=== PATIENT | male | born 1950 | race Caucasian/White ===

== ENCOUNTER 2017-02-05 06:11 | Inpatient (IN) | payer OTHER ==
[2017-01-22 11:56] VITALS: BMI 35.0
--- NOTE | 2017-01-22 12:24 | PAT Medication Instructions ---
Service Date January 22, 2017. Current Home Medication List Allopurinol (Zyloprim), 100 MG PO QAM Aspirin (Aspirin Ec), 81 MG PO QAM Cyanocobalamin (Vitamin B-12), 1,000 MCG PO QAM Insulin Glargine (Lantus), 50 UNITS SQ HS Insulin Glargine (Lantus), 60 SC QAM Lisinopril (Zestril), 10 MG PO QAM Meloxicam (Mobic), 15 MG PO QAM Metformin Hcl (Glucophage), 1,000 MG PO BID Simvastatin (Zocor), 0.5 TAB PO QPM [saxagliptin-hcl], 2.5 MG PO QAM Medication Instructions For Your Scheduled Surgery - Check with surgeon for instructions: Meloxicam (Mobic), 15 MG PO QAM - Hold the following medications 48 hours prior to surgery: Metformin Hcl (Glucophage), 1,000 MG PO BID - Hold the following medications the morning of surgery: [saxagliptin-hcl], 2.5 MG PO QAM Lisinopril (Zestril), 10 MG PO QAM Cyanocobalamin (Vitamin B-12), 1,000 MCG PO QAM - Take the following medications the morning of surgery with a sip of water: Allopurinol (Zyloprim), 100 MG PO QAM Aspirin (Aspirin Ec), 81 MG PO QAM - Take the following medications as scheduled the night before surgery: Simvastatin (Zocor), 0.5 TAB PO QPM Insulin Glargine (Lantus), 50 UNITS SQ HS - For Insulin Dependent Diabetic patients: Test blood sugar A.M. of surgery. - If blood sugar greater than 150, take half of your regular dose of: Insulin Glargine (Lantus), take 30 units - If blood sugar less than 150, do not take any: Insulin Glargine (Lantus ) If you have any questions please call us at [phone] or [phone] or [phone]
[2017-01-22 12:51] LABS: BASO % 0.8 %; BASO ABS # 0.06 K/uL (0-0.2); COMPLETE YES; EOS % 1.9 %; HEMATOCRIT 41.6 % (42-52); IG% 0.3 %; LYMPH % 19.5 %; MEAN CELL VOLUME 85.1 fL (80-100); MEAN CORPUSCULAR HEMOGLOBIN 27.2 pg (25-34); MEAN PLATELET VOLUME 9.8 fL (7.4-10.4); MONO % 4.9 %; NEUT % 72.6 %; PLATELET COUNT 211 K/uL (130-400); RED BLOOD COUNT 4.89 M/uL (4.7-6.1); WHITE BLOOD COUNT 7.19 K/uL (4.8-10.8)
--- NOTE | 2017-01-22 12:52 | DIAGNOSTIC IMAGING REPORT ---
CHEST PREADMISSION(PA/LAT) CLINICAL HISTORY: PAT preoperative evaluation COMPARISON STUDY: 07/01/2014 FINDINGS: Chronic pleural scarring left base laterally. Lungs otherwise appear clear. No focal infiltrates. No evidence for cardiac enlargement. IMPRESSION: Chronic change. No acute process. Electronically signed by: Elder Pablo M.D. 01/22/2017 12:51 PM Dictated Date/Time: 01/22/2017 12:50 PM
[2017-01-22 12:57] LABS: MANUAL MICROSCOPIC REQUIRED? NO; REVIEW REQ? NO; URINE APPEARANCE CLEAR (CLEAR); URINE BILIRUBIN NEG (NEG); URINE COLOR YELLOW; URINE NITRITE NEG (NEG); URINE SPECIFIC GRAVITY 1.022 (1.000-1.030); UROBILINOGEN NEG (NEG); ZZUR CULT IF INDIC CLEAN CATCH NO
[2017-01-22 13:07] LABS: PROTHROMBIN TIME (PATIENT) 10.9 SECONDS (9.0-12.0)
[2017-01-22 13:13] LABS: ESTIMATED AVERAGE GLUCOSE 166 mg/dl; HA1C FLAG Normal (Normal)
[2017-01-22 13:35] LABS: CALCIUM 9.2 mg/dl (8.5-10.1); CREATININE 1.6 mg/dl (0.60-1.40); POTASSIUM 4.7 mmol/L (3.5-5.1)
--- NOTE | 2017-02-04 10:47 | HISTORY & PHYSICAL EXAMINATION ---
DATE OF ADMISSION: 02/05/2017 CHIEF COMPLAINT: Right knee pain. HISTORY OF PRESENT ILLNESS: Mr. Boykin is a 67-year-old male with a multiple year history of right knee pain. The patient rates his pain a 6/10. He has pain with his daily activities. He has limited standing and walking tolerance. Pain is worse with weightbearing. The patient has had injections, anti-inflammatories, and bracing over the years without relief. He has failed conservative treatment and is now scheduled for right knee replacement. PAST MEDICAL HISTORY: Diabetes with an A1c of 6, history of left lower extremity deep venous thrombosis after being in a cast and sleep apnea, and hypercholesterolemia. He denies heart disease. PAST SURGICAL HISTORY: Cholecystectomy, ORIF left ankle, bilateral rotator cuff repair, and lithotripsy. SOCIAL HISTORY: The patient denies alcohol or tobacco use. He lives in a 2-story home. He is and retired. FAMILY HISTORY: Negative for DVT. MEDICATIONS: Metformin 1000 mg b.i.d., Meloxicam 15 mg daily, saxagliptin HCL 2.5 mg daily, allopurinol 100 mg daily, lisinopril 10 mg daily, simvastatin 80 mg daily, vitamin B12 1000 mg daily, aspirin 81 mg daily, Lantus 60 units in the morning and 50 units at bedtime. ALLERGIES: None. REVIEW OF SYSTEMS: See HPI. Ten other systems reviewed, all negative. PHYSICAL EXAMINATION: VITAL SIGNS: Height 5 feet 10 inches, weight 242 pounds, BMI unknown. GENERAL: This is a well-developed, well-nourished male who is alert and oriented x3. Mood and affect are appropriate. HEENT: Normocephalic, atraumatic. Mucous membranes are moist and intact. NECK: Supple without lymphadenopathy. HEART: Regular rate and rhythm without murmurs, rubs or gallops. LUNGS: Clear to auscultation without wheezes or rhonchi. ABDOMEN: Soft and nontender. Bowel sounds are equal and active. EXTREMITIES: No ecchymosis, redness or warmth. The patient has a varus deformity. Range of motion is from 5-100 degrees with +1 laxity. He is neurovascularly intact with +5/5 strength. X-RAY EXAMINATION: AP and lateral views show joint space narrowing and osteophyte formation. IMPRESSION: Degenerative joint disease, right knee. PLAN: The patient will be admitted for a right total knee arthroplasty. We will plan on aspirin for DVT prophylaxis. PCP is Dr. Best. He is going to have [facility] for home physical therapy.
[2017-02-05] VITALS (9 sets, daily range): BP systolic 108–145; BP diastolic 63–83; PULSE 60–75; TEMP 36.4–36.9; O2SAT 94–99; Ht 177.8 cm; Wt 111.9 kg
[~2017-02-05] VITALS: Ht 177.8 cm; Wt 111.9 kg
[~2017-02-05 06:11] MED LIST: ACETAMINOPHEN 500 MG TAB PO SCH; ALLO100T PO; ASPI81TA28 PO; CEFAZOLIN 2000 MG/60 ML D5W 60 ML IV SCH; CYAN10005 PO; CeleBREX 200 MG CAP PO SCH; FAMOTIDINE 20 MG TAB PO SCH; GABAPENTIN 300 MG CAP PO SCH; INSDGI SC; INSDGI SQ; LACTATED RINGER'S 1000ML 1,000 ML IV SCH; LACTATED RINGER'S 1000ML 500 ML IV ONE; LISI-791 PO; MELO15TA4 PO; METF1000 PO; METOCLOPRAMIDE HCL 10 MG TAB PO SCH; OXYCODONE HCL 10 MG TABCR (OXYCONTIN) PO SCH; POLYMYXIN B SULFATE 100,000 UNITS in NSS 100ML IR SCH; ROPIVACAINE 5MG/ML 30 ML 150 MG, BUPIVACAINE/EPINEPHR 0.5% MPF 30 ML, KETOROLAC TROMETH... INFIL SCH; SIMV80TA5 PO; VANCOMYCIN INJ 400 MG in NSS 100ML IR SCH; [UNRECOGNIZED DRUG - CODE] PO
[2017-02-05] MEDS ORDERED: FENTANYL CITRATE INJ 50 MCG/1 ML 2 ML VIAL ONE (06:22)
[2017-02-05] MEDS ORDERED: MIDAZOLAM HCL 1 MG/ML 2ML VIAL ONE ×2 (06:23→08:50)
--- NOTE | 2017-02-05 06:54 | History & Physical Bridge Note ---
H&P Re-Evaluation Bridge Note: I have examined the patient, reviewed the History & Physical and in the interval since the performance of the History & Physical I have noted the following changes of clinical significance: No changes noted
[2017-02-05] MEDS ORDERED: ORTHO JOINT ANESTHETIC ONE (07:38)
[2017-02-05] MEDS ORDERED: BUPIVACAINE/EPINEPHRINE 0.25% 1:200,000 30 ML VIAL ONE (07:38)
[2017-02-05] MEDS ORDERED: POVIDONE-IODINE OP SOLN 30 ML BTL ONE (07:39)
[2017-02-05] MEDS ORDERED: BACITRACIN 50000 UNIT VIAL ONE (07:39)
[2017-02-05] MEDS: TRANEXAMIC ACID INJ 1,000 MG in SODIUM CHLORIDE 0.9% 100ML 100 ML IV SCH ×2 (08:00→12:54)
[2017-02-05] MEDS ORDERED: BUPIVACAINE 0.5 % 5 MG/1 ML PF 10ML VIAL ONE (08:21)
[2017-02-05] MEDS ORDERED: BUPIVACAINE 0.25% 30 ML VIAL ONE (08:21)
[2017-02-05] MEDS ORDERED: EpHEDrine SULFATE INJ 50 MG/ML AMP IV PRN (08:45)
[2017-02-05] MEDS ORDERED: KETOROLAC TROMETHAMINE 30 MG/ML VIAL IV. PRN (08:45)
[2017-02-05] MEDS ORDERED: HYDROmorphone INJ 2 MG/ML SYR/VIAL IV PRN (08:45)
[2017-02-05] MEDS ORDERED: ONDANSETRON INJ 2 MG/ML 2 ML VIAL IV PRN ×2 (08:45→10:00)
[2017-02-05] MEDS ORDERED: ATROPINE SULFATE 0.1 MG/ML 5ML SYR IV PRN (08:45)
[2017-02-05] MEDS ORDERED: PHENYLEPHRINE 100MCG/ML 5ML SYR IV PRN (08:45)
[2017-02-05] MEDS ORDERED: PROPOFOL IV EMULSION 10 MG/ML 20 ML VIAL IV ONE (08:50)
[2017-02-05] MEDS ORDERED: LIDOCAINE HCL 2% 2 ML VIAL (20MG/ML) ONE (08:50)
[2017-02-05] MEDS ORDERED: PHENYLEPHRINE 100MCG/ML 5ML SYR ONE (08:52)
[2017-02-05] MEDS ORDERED: EpHEDrine SULFATE 50MG/5ML SYR ONE (08:57)
--- NOTE | 2017-02-05 09:51 | [facility] Post Operative Brief Note ---
Immediate Operative Summary Operative Date February 05, 2017. Pre-Operative Diagnosis Right Knee Degenerative Joint Disease Post-Operative Diagnosis Same as preop Procedure(s) Performed Right Total Knee Arthroplasty Surgeon Dr. David Galo [place] Flo[place] Surgeon(s) Gage Feng PA-C Estimated Blood Loss 125 Findings djd Specimens A. Right Knee Bone and Tissue Complication(s) None Disposition Recovery Room / PACU
[2017-02-05] MEDS ORDERED: SOD PHOSPHATE/SOD BIPHOSPHATE ENEMA 132 ML BTL PR PRN (10:00)
[2017-02-05] MEDS ORDERED: ZOLPIDEM TARTRATE 5 MG TAB PO PRN (10:00)
[2017-02-05] MEDS ORDERED: METOCLOPRAMIDE HCL INJ 5 MG/ML 2 ML VIAL IV PRN (10:00)
[2017-02-05] MEDS ORDERED: KETOROLAC TROMETHAMINE 15 MG/ML VIAL IV. PRN (10:00)
[2017-02-05] MEDS ORDERED: ALUMINUM/MAGNESIUM/SIMETH (MAALOX MAX) 30 ML UDC PO PRN (10:00)
[2017-02-05] MEDS ORDERED: BISACODYL 10 MG SUPP PR PRN (10:00)
[2017-02-05] MEDS ORDERED: MAGNESIUM HYDROXIDE SUSP 30 ML UDC PO PRN (10:00)
[2017-02-05] MEDS ORDERED: TRAMADOL HCL 50 MG TAB PO PRN (10:00)
[2017-02-05] MEDS ORDERED: MoRPHine SULFATE 2 MG/ML CARP IV PRN (10:00)
[2017-02-05] MEDS ORDERED: DiphenhydrAMINE HCL 50 MG/ML VIAL IV PRN (10:00)
[2017-02-05] MEDS ORDERED: OXYCODONE HCL IR 5 MG TAB (IMMEDIATE RELEASE) PO PRN (10:00)
--- NOTE | 2017-02-05 11:04 | DIAGNOSTIC IMAGING REPORT ---
RIGHT KNEE 1 OR 2 VIEWS ROUTINE CLINICAL HISTORY: AP/LATERAL IN PACU RIGHT KNEE Right joint replacement COMPARISON: None. DISCUSSION: Total joint replacement. Good contact between prosthetic and Bone. Surgical drains are in position. Expected postoperative soft tissue change IMPRESSION: Anatomic alignment status post total right knee replacement Electronically signed by: Elder Pablo M.D. 02/05/2017 11:03 AM Dictated Date/Time: 02/05/2017 11:00 AM
--- NOTE | 2017-02-05 11:19 | Anesthesiology Progress Note ---
Anesthesia Post Op Note Date & Time February 05, 2017 at 11:19 Vital Signs Pain Intensity: 0 Vital Signs Past 12 Hours Date Time Temp Pulse Resp B/P Pulse Ox O2 Delivery O2 Flow Rate FiO2 02/05/17 11:05 36.3 66 24 109/70 98 Nasal Cannula 2 02/05/17 10:55 66 20 109/62 97 Nasal Cannula 2 02/05/17 10:45 65 20 100/62 98 Nasal Cannula 2 02/05/17 10:35 69 26 98/63 99 Nasal Cannula 2 02/05/17 10:27 36.2 72 16 109/64 99 Nasal Cannula 2 02/05/17 06:58 36.9 75 20 145/83 95 Room Air Notes Mental Status: alert / awake / arousable, participated in evaluation Pt Amnestic to Procedure: Yes Nausea / Vomiting: adequately controlled Pain: adequately controlled Airway Patency, RR, SpO2: stable & adequate BP & HR: stable & adequate Hydration State: stable & adequate Anesthetic Complications: no major complications apparent
[2017-02-05] MEDS ORDERED: PHARMACY GLYCEMIC MGMT CONSULT PRN (12:10)
[2017-02-05] MEDS: SODIUM CHLORIDE 0.9% 1000ML 1,000 ML IV SCH ×2 (12:57→21:20)
[2017-02-05] MEDS: INSULIN ASPART 100 UNITS/ML 3 ML PEN SC SCH ×3 (13:01→21:22)
[2017-02-05] MEDS ORDERED: GLUCOSE 10 TABS/TUBE PO PRN (15:15)
[2017-02-05] MEDS ORDERED: GLUCOSE 40% GEL 15 GM TUBE PO PRN (15:15)
[2017-02-05] MEDS ORDERED: GLUCAGON FOR INJ 1 MG VIAL SQ PRN (15:15)
[2017-02-05] MEDS ORDERED: DEXTROSE 50% 50 ML SYR IV PRN (15:15)
--- NOTE | 2017-02-05 15:22 | Pharmacy Progress Note ---
Glycemic Control Intl Consult Date of Service February 05, 2017. Scope Glycemic Pharmacist consulted by Dr Galo on 02/05/17 for glycemic control and to write orders per [facility] inpatient glycemic control protocol Objective Weight (Kilograms): 111.900 Accuchecks BSG (last 24hrs): Test 02/05/17 06:34 02/05/17 10:31 02/05/17 11:50 Bedside Glucose 181 mg/dl (70-99) 155 mg/dl (70-99) 156 mg/dl (70-99) HbA1c Test 01/22/17 11:45 Hemoglobin A1c 7.4 % (4.5-5.6) H Recent Pertinent Medications Outpatient Anti-diabetic Regimen: * Lantus 60 units qAM, 50 units qHS + metformin 1000mg PO BID * A1c = 7.4 % 01/22/17 Risk Factors for Insulin Resistance: * Steroids: Orthomix x 1 pre-op (contains dexamethasone 4mg) * Recent Surgery: POD #0 right TKA * Diet: T2DM Assessment & Plan ASSESSMENT: * ADA & AACE recommend a goal blood sugar range 140-180 mg/dl for the majority of critically ill & non-critically ill patients. However, more stringent targets may be selected in individual cases. Will utilize more stringent goal of 110-140 mg/dl based on patient age & comorbidities. Additionally, tighter glycemic control is warranted to facilitate wound/infection healing. * 67 year old T2DM male s/p R TKA. Patient is decently controlled as an outpatient on 110 units of insulin per day plus metformin. * of note, this is solely basal insulin and is likely covering prandial needs as well * Patient last took Lantus 30 units this am (half of outpatient dose) * Home insulin dose will be redistributed as 50/50 basal bolus regimen -> 30 Lantus BID, CF 15, CR 5 * I suspect BSG may become elevated throughout the day due to recent surgery, partial dose of lantus this am and possible effect of steroid in orthomix, therefore, PM lantus dose for today will be based on BSG. * Hold metformin and will consider resuming 1-2 days prior to discharge. PLAN FOR INPATIENT GLYCEMIC CONTROL: * Holding outpatient metformin * Basal insulin with LANTUS * For BSG 139 mg/dL or less - 24 units * For BSG 140-180 mg/dL - 30 units * For BSG 181 mg/dL or greater - 36 units * Lantus order will be re-evaluated 02/06 am * Correctional Insulin with NOVOLOG per scale ACHS o * Goal Range: Low 110 mg/dL - High 140 mg/dL * Correction Factor: 15 mg/dL/unit * Nutritional / Prandial insulin per carb ratio of 1 unit per 5 grams CHO consumed * Please note that the plan above was derived based on current level of insulin resistance and hospital stress. These recommendations are appropriate for inpatient admission only. Plan of care upon discharge will need to be reassessed to avoid potential outpatient hypo/hyperglycemia. Thank you.
[2017-02-05] MEDS: CEFAZOLIN IV 2,000 MG in DEXTROSE 5% 50ML 50 ML IV SCH ×2 (15:46→23:09)
[2017-02-05] MEDS: ACETAMINOPHEN 500 MG TAB PO SCH ×2 (15:47→23:09)
[2017-02-05] MEDS ORDERED: TRANEXAMIC ACID INJ 1,000 MG in SODIUM CHLORIDE 0.9% 100ML 100 ML IV SCH (16:30)
[2017-02-05] MEDS ORDERED: INSULIN GLARGINE SOLOSTAR 100 UNITS/ML 3 ML PEN SC SCH ×2 (17:15→21:00)
--- NOTE | 2017-02-05 20:31 | OPERATIVE REPORT ---
DATE OF OPERATION: 02/05/2017 PREOPERATIVE DIAGNOSIS: Degenerative arthritis, right knee. POSTOPERATIVE DIAGNOSIS: Same. PROCEDURE: Right total knee patient matched implant. SURGEON: Dr. Galo. BILL COLLECTOR: ALEX Morrissey. ANESTHESIA: Spinal. BLOOD LOSS: 125 mL. TOURNIQUET TIME: 20 minutes at 250 mmHg. DRAINS: Hemovac x2. CULTURES: None. COMPLICATIONS: None. COMPONENTS USED: [employer]-[place] Knee System: Femur size 6, tibia size 5 x 9, patella size 38. NOTE: ALEX Morrissey was present and assisted throughout due to the complicated nature of this case. He helped with preparation and set up, first assisted throughout and personally closed the capsule, subcutaneous and skin layers and applied the postoperative dressing. DESCRIPTION OF PROCEDURE: Following satisfactory spinal, the patient was supine. A tourniquet was placed but not initially inflated. The lower extremity was prepared with ChloraPrep and draped sterilely. Following a surgical time-out, a trivector approach to the knee was performed. The knee showed severe grade 4 changes throughout. The cruciate ligaments were excised. The patella was freehand cut and sized. The patient matched femoral block was applied. Femoral distal rotation and resection were set and completed. The 4-in-1 block was used to finish preparation of the femur. The patient matched tibial block was applied. Tibial resection was completed. Soft tissue balancing was completed and a trial reduction showed good tensioning and stability on the collateral ligaments and the patella tracked well. The posterior capsule was stripped to allow better extension. The orthopedic cocktail was placed and after irrigation, the components were cemented using Simplex G cement. There did seem to be some bleeding from the posterior capsule so the tourniquet was inflated for easier closure. A Betadine soak was performed and then irrigated. The drains were placed. The capsule was closed with a running suture of 0 V-Loc and reinforced with #1 Vicryl. The subcutaneous tissues with 2-0 Vicryl. The skin with a running subcuticular stitch of 3-0 V-Loc. Dermabond and a dry dressing were applied. The patient was returned to his bed in stable condition. I attest to the content of the Intraoperative Record and any orders documented therein. Any exceptio ns are noted below.
[2017-02-05] MEDS ORDERED: SIMVASTATIN 40 MG TAB PO SCH (21:00)
[2017-02-05] MEDS ORDERED: INSULIN GLARGINE SOLOSTAR 100 UNITS/ML 3 ML PEN SQ SCH (21:00)
[2017-02-05] MEDS ORDERED: SENNA 8.6 MG TAB PO SCH (21:00)
[2017-02-05] MEDS ORDERED: CeleBREX 200 MG CAP PO SCH (21:00)
[2017-02-05] MEDS: ASPIRIN 81 MG ECTAB PO SCH (21:20)
[2017-02-06 02:56] VITALS: BP 114/69; PULSE 62; TEMP 36.5; O2SAT 94
[2017-02-06 05:09] LABS: HEMATOCRIT 31.8 % (42-52); MEAN CELL VOLUME 84.1 fL (80-100); MEAN CORPUSCULAR HEMOGLOBIN 27.8 pg (25-34); MEAN PLATELET VOLUME 9.5 fL (7.4-10.4); PLATELET COUNT 167 K/uL (130-400); RED BLOOD COUNT 3.78 M/uL (4.7-6.1); WHITE BLOOD COUNT 10.71 K/uL (4.8-10.8)
[2017-02-06 05:27] LABS: BUN/CREATININE RATIO 13.5 (10-20); CALCIUM 7.8 mg/dl (8.5-10.1); CREATININE 1.8 mg/dl (0.60-1.40)
--- NOTE | 2017-02-06 07:33 | Orthopedic Progress Note ---
Orthopedic Progress Note Date of Service February 06, 2017. Subjective Post OP Day: 1 (RTKA) Reports: feeling well, pain controlled w PO medications, Denies: SOB, chest pain , complaints, light headedness, nausea / vomiting Objective calves soft nontender, N/V intact, dressing C/D/I, A&O x3, toes mobile, hemovac drainage (30 LASTSHIFT) Date Time Temp Pulse Resp B/P Pulse Ox O2 Delivery O2 Flow Rate FiO2 02/06/17 02:56 36.5 62 19 114/69 94 Room Air 02/05/17 23:30 Room Air 02/05/17 22:46 36.4 60 16 113/66 94 Room Air 02/05/17 15:30 97 Room Air 02/05/17 15:02 36.4 64 18 113/69 96 Nasal Cannula 2.0 02/05/17 14:02 36.5 66 19 114/66 97 Room Air 02/05/17 13:05 36.4 68 18 116/70 97 Nasal Cannula 2.0 02/05/17 12:27 66 17 128/74 99 Nasal Cannula 2.0 02/05/17 12:08 65 16 108/68 99 Nasal Cannula 2.0 02/05/17 11:35 Room Air 02/05/17 11:35 36.4 67 24 109/63 95 Nasal Cannula 2.0 02/05/17 11:35 Nasal Cannula 2.0 02/05/17 11:15 67 22 104/63 97 Nasal Cannula 2 02/05/17 11:05 36.3 66 24 109/70 98 Nasal Cannula 2 02/05/17 10:55 66 20 109/62 97 Nasal Cannula 2 02/05/17 10:45 65 20 100/62 98 Nasal Cannula 2 02/05/17 10:35 69 26 98/63 99 Nasal Cannula 2 02/05/17 10:27 36.2 72 16 109/64 99 Nasal Cannula 2 Laboratory Results 24 Hours: Test 02/06/17 04:45 Hematocrit 31.8 % Hemoglobin 10.5 g/dL Assessment & Plan Assessment: POD 1 R TKA Plan: HOME TODAY W [facility] HH DRESING DRAIN OFF BEFROE DC SCRIPT GIVEN TO LAST PM Inhouse Planning Pain Management: Celebrex, PO Tylenol, Oxy IR DVT Prophylaxis: TEDs, SCDs, ASA Discharge Planning Discharge Planning: home with home health Pain Management: Celebrex, PO Tylenol, Oxy IR DVT Prophylaxis: TEDs, ASA
--- NOTE | 2017-02-06 07:37 | Discharge Instructions ---
Discharge Instructions Date of Service February 06, 2017. Admission Reason for Admission: Right Knee Degenerative Arthritis Discharge Discharge Diagnosis / Problem: sp right TKA Discharge Goals Goal(s): Decrease discomfort, Improve function, Increase independence Activity Recommendations Activity Limitations: per Instructions/Follow-up section . Instructions / Follow-Up Instructions / Follow-Up ACTIVITY RECOMMENDATIONS: SELF CARE INSTRUCTIONS AFTER TOTAL KNEE REPLACEMENT A. You may need to continue a physical therapy program after discharge from the hospital. There are several options available to you. Your doctor will assist you in selecting the best one for you. 1. An out-patient facility 2 to 3 times a week for therapy or home therapy. 2. Continue working on all exercises taught to you in the hospital. Your goals should be to increase bending of your knee to 90 degrees and beyond and to fully straighten your knee. B. You may progress at your own pace from walking with a walker or crutches to a cane; then to no assistive devices. C. Make walking a part of your daily routine. Be up as much as comfortable with rest periods throughout the day. Rest with leg elevation is very important. Use the ice wrap frequently for the first 3-4 weeks. D. There are no restrictions on activities. You may ride in a car, shop, participate in distribution driver and all social activities. E. Wear the long elastic stockings (CARLOS hose) 20 hours a day for 2 weeks after surgery. They can be removed several times a day for laundering and for a bath. F. You may shower, no tub baths until cleared by your doctor. SPECIAL CARE INSTRUCTIONS: VERY IMPORTANT TO READ AND REVIEW A. There are a few signs you need to watch for after you are home. Call [facility] if you notice any of the followin. Increased severe knee pain. Some pain is expected especially when you exercise. 2. Increased swelling in your leg or knee; pain or swelling of the calf muscle in either lower leg. 3. Any fluid drainage from the incision. 4. Shortness of breath or chest pain. B. Please call [facility] at if you have any concerns or questions about your operation or recovery. The doctor or his nurse will return your call promptly. C. You must take antibiotics before dental work, bladder, bowel or other surgery. Your doctor will provide you with a permanent care to carry describing this precaution. IMPORTANT: * REMEMBER TO TAKE ASPIRIN, 81 MG, TWICE DAILY FOR 4 WEEKS UNLESS OTHERWISE DIRECTED. THIS IS YOUR BLOOD THINNER. * HIGH RISK PATIENTS MAY BE PRESCRIBED A STRONGER BLOOD THINNER. THIS WILL BE PROVIDED AT DISCHARGE. * CALL IF INCREASED PAIN, REDNESS, DRAINAGE OR FEVER GREATER THAT 101. * WEAR CARLOS HOSE 20 HOURS PER DAY FOR 2 WEEKS. DERMABOND Prineo- This is a mesh tape dressing that is covered with glue. It should remain in place until the incision is properly healed, usually 10-14 days. This dressing is designed to naturally slough off. You may trim the excess mesh tape as it peels off. Incision may be briefly wet in a shower. Dry immediately by blotting with a clean, dry towel. Do not bath or swim until instructed by your doctor. Do not scratch, rub, or pick at the dressing. Do not apply any topical ointments or lotions until dressing is completely removed and/or instructed by your doctor. There may be a small piece of suture material at one end of your incision. Do not pull or trim this. If it is bothersome or catching on clothing, you may cover it with a band-aid. FOLLOW UP VISIT: If appointment is not already scheduled: Please call [facility] to make a follow-up appointment for 2 weeks after your surgery at . Current Hospital Diet Patient's current hospital diet: Diabetes Type 2 Diet Discharge Diet Recommended Diet: Regular Diet Procedures Procedures Performed: Right Total Knee Arthroplasty Pending Studies Studies pending at discharge: no Laboratory Results Hemoglobin A1c Test 01/22/17 11:45 Range/Units Estimated Average Glucose 166 mg/dl Hemoglobin A1c 7.4 H 4.5-5.6 % Medical Emergencies . Who to Call and When: Medical Emergencies: If at any time you feel your situation is an emergency, please call 911 immediately. . Non-Emergent Contact Non-Emergency issues call your: Surgeon . "Provider Documentation" section prepared by Tiffanie Walter. . VTE Core Measure Inpt VTE Proph given/why not?: Other Anticoagulation, T.E.D. Stockings, SCD's [place] Drug Monitoring Program Search Results: patient reviewed within database, no issues identified
[2017-02-06] MEDS ORDERED: ONDA8TAB6 PO (07:39)
[2017-02-06] MEDS ORDERED: ASPI81TA28 PO (07:39)
[2017-02-06] MEDS ORDERED: ACET-1138 PO (07:39)
[2017-02-06] MEDS ORDERED: CLB200 PO (07:39)
[2017-02-06] MEDS ORDERED: RXC5 PO (07:39)
[2017-02-06] MEDS ORDERED: SNK PO (07:39)
--- NOTE | 2017-02-06 07:42 | Anesthesiology Progress Note ---
Anesthesia Post Op Note Date & Time February 06, 2017 at 07:41 Vital Signs Pain Intensity: 3.0 Vital Signs Past 12 Hours Date Time Temp Pulse Resp B/P Pulse Ox O2 Delivery O2 Flow Rate FiO2 02/06/17 02:56 36.5 62 19 114/69 94 Room Air 02/05/17 23:30 Room Air 02/05/17 22:46 36.4 60 16 113/66 94 Room Air Notes Mental Status: alert / awake / arousable, participated in evaluation Pt Amnestic to Procedure: Yes Nausea / Vomiting: adequately controlled Pain: adequately controlled Airway Patency, RR, SpO2: stable & adequate BP & HR: stable & adequate Hydration State: stable & adequate Anesthetic Complications: no major complications apparent
[2017-02-06 07:56] VITALS: BP 130/62; PULSE 60; TEMP 36.5; O2SAT 97
[2017-02-06] MEDS: ASPIRIN 81 MG ECTAB PO SCH (08:26)
[2017-02-06] MEDS: ACETAMINOPHEN 500 MG TAB PO SCH (08:28)
[2017-02-06] MEDS: INSULIN ASPART 100 UNITS/ML 3 ML PEN SC SCH ×2 (08:33→12:37)
[2017-02-06] MEDS: SODIUM CHLORIDE 0.9% 1000ML 1,000 ML IV SCH (08:35)
[2017-02-06] MEDS ORDERED: ALLOPURINOL 100 MG TAB PO SCH (09:00)
[2017-02-06] MEDS ORDERED: LISINOPRIL 10 MG TAB PO SCH (09:00)
[2017-02-06] MEDS ORDERED: INSULIN GLARGINE SOLOSTAR 100 UNITS/ML 3 ML PEN SC SCH ×2 (09:00)
[2017-02-06] MEDS ORDERED: PANTOprazole SOD 40 MG TAB PO SCH (09:00)
[2017-02-06] MEDS ORDERED: MULTIVITAMIN TAB PO SCH (09:00)
[2017-02-06] MEDS ORDERED: CYANOCOBALAMIN 500 MCG TAB (VIT B-12) PO SCH (09:00)
[2017-02-06 09:15] VITALS: BP 138/73; PULSE 81; O2SAT 97
[2017-02-06 10:34] VITALS: O2SAT 97
[2017-02-06 10:35] VITALS: BP 138/73; PULSE 81; TEMP 36.5; O2SAT 97
[2017-02-06 11:38] VITALS: BP 120/68; PULSE 63; TEMP 36.7
--- NOTE | 2017-02-07 11:46 | DISCHARGE SUMMARY ---
DISCHARGE DIAGNOSIS: Degenerative joint disease, right knee. SECONDARY DIAGNOSES: Diabetes mellitus, history of DVT left lower extremity, hypercholesterolemia. CONSULTS: None. COMPLICATIONS: None. PROCEDURES: Right total knee arthroplasty performed by Dr. Juan Pablo Galo on 02/05/2017. BRIEF HISTORY: As dictated in history and physical. HOSPITAL SUMMARY: The patient was admitted on the above-noted date and had the above-noted surgery performed which he tolerated well. On his first postoperative day, he was feeling well and pain was controlled and had no complaints. Calves were soft and nontender, neurovascularly intact. Dressings were clean, dry and intact. Toes were mobile. Vital signs were stable. He was afebrile and hemoglobin was 10.5. He was started on physical therapy protocol and continued on DVT prophylaxis and pain management. He continued to remain stable and progressed with his physical therapy and it was felt he could be discharged to home on 02/06/2017. For further review, please see chart. LAB AND X-RAY DATA: As per chart. DISCHARGE INSTRUCTIONS: The patient was discharged to home in satisfactory condition on 02/06/2017. DIET: Diabetic. ACTIVITY: Follow TK instruction sheets and special care instructions as noted. Follow up with Dr. Galo in 2 weeks. The patient to call for appointment if one has not been made for you. DISCHARGE MEDICATIONS: Acetaminophen 1000 mg p.o. q. 8 hours, Celebrex 200 mg p.o. b.i.d., Zofran 8 mg p.o. q. 8 hours p.r.n., oxycodone 5-10 mg p.o. q. 4 hours p.r.n., senna 17.2 mg at bedtime, resume taking allopurinol 100 mg p.o. q.a.m., vitamin B12 1000 mcg p.o. q.a.m., Lantus insulin 50 units subQ at bedtime, Lantus insulin 60 units subQ q.a.m., lisinopril 10 mg p.o. q.a.m., metformin 1000 mg p.o. b.i.d., simvastatin 0.5 mg p.o. q.p.m. and saxagliptin HCL 2.5 mg p.o. q.a.m., aspirin 81 mg p.o. b.i.d. for 30 days and then afterwards resume once daily dosing. Stop taking Meloxicam.
== END 2017-02-06 14:00 | disposition home health service (06) | DRG 470 ==
LOC: ENRESERVTM → ENRESERVDT → C.ACU 06:11 → C.3E 06:30
PROVIDERS: ADMIT Orthopaedic Surgery; ATTEND Orthopaedic Surgery
PROC: 0SRC0J9 Replacement of Right Knee Joint with Synthetic Substitute, Cemented, Open Approach (ICD-10-PCS; principal; 2017-02-05 08:45)
DX: M17.11 Unilateral primary osteoarthritis, right knee (principal); E11.9 Type 2 diabetes mellitus without complications; E78.00 Pure hypercholesterolemia, unspecified; G47.30 Sleep apnea, unspecified; Z79.4 Long term (current) use of insulin; Z79.82 Long term (current) use of aspirin; Z79.84 Long term (current) use of oral hypoglycemic drugs; Z79.899 Other long term (current) drug therapy; Z86.718 Personal history of other venous thrombosis and embolism

== ENCOUNTER 2019-12-17 14:46 | Inpatient (IN) ==
[2019-12-17] MEDS ORDERED: ONDANSETRON INJ 2 MG/ML 2 ML VIAL IV STA (15:01)
--- NOTE | 2019-12-17 15:06 | Emergency Department Note ---
Impression & Plan Right distal ureteral calculus, Abdominal pain, Nausea & vomiting ED Provider Note Provider: Wilfredo Eid MD DATE OF SERVICE: 12/17/2019 CHIEF COMPLAINT: Abdominal pain HISTORY OF PRESENT ILLNESS: Patient is a 69-year-old gentleman presenting today via private vehicle with reported abdominal pain reportedly having nausea, vomiting, diarrhea. Pain started approximately 5 days ago in the right inguinal area but a little bit more diffuse. Not tender. Inguinal pain is moderate. Denies testicle pain. Denies any URI symptoms difficulty breathing or chest pain. States he has been throwing up some and some mild diarrhea. No sick contacts reported. No blood in stool or vomit. Patient not acutely tachycardic or febrile. No fevers reported. No trauma reported. Patient has underlying medical history of CKD, hypertension, kidney stones, diabetes, prior cholecystectomy. States this does feel somewhat similar to his prior kidney stone. Has tried some Tylenol at home for pain with mild improvement. Denies significant pain at this time. Decreased oral intake secondary to his nausea. Patient also states he is concerned about his kidneys as they have had issues before too. No sick contacts. No travel. REVIEW OF SYSTEMS: A total of 10 review of systems was obtained and negative except as stated above in the HPI. PAST MEDICAL HISTORY: As noted above MEDICATIONS: Reviewed the nursing notes, includes insulin, aspirin SOCIAL HISTORY: Patient denies illicit drug use or tobacco use. PHYSICAL EXAM: GENERAL: alert and oriented in no acute distress on stretcher Head: normocephalic and atraumatic EYES: No injection, discharge or icterus. ENT: Mucous membranes pink and moist. LUNGS: Airway patent. No retractions HEART: Regular rate and rhythm. No chest wall tenderness ABDOMEN: Soft and non-tender, without guarding or rebound. No masses BACK: No bilateral flank tenderness. SKIN: Acyanotic, warm, dry, without rashes EXTREMITIES: Without swelling, tenderness or deformity NEUROLOGICAL: No focal deficits. No aphasia. No facial droop or slurred speech. Ambulatory. EKG:Normal sinus rhythm at 69 bpm. No PVCs are notable. No acute ST segment elevation or depressions noted. Some baseline artifact is noted. Left axis noted. Normal QTC. CONTINUOUS CARDIAC MONITORING: was ordered and showed a heart rate of 72 bpm in NSR Patient's hypertension was referred to the hospitalist/PCP PDMP was checked without noted issue. HOSPITAL COURSE: 1456 Patient was first seen and H&P performed. 1635 Patient reassessed and updated. Patient was feeling somewhat improved. Updated on findings and oral trial will be initiated. 1808 patient reassessed had another diarrhea movement. States his pain is in very bad and is nauseous not bad but he feels quite ill. Discussed options at this time. Patient feels uncomfortable going home. Discussed risk and benefits of staying. Hospitalist to be contacted. Patient's laboratory studies and imaging reviewed. Differential includes Appendicitis, testicular torsion, infections, diverticulitis, UTI, obstruction, mesenteric ischemia, aortic pathology, inflammatory bowel disease, renal colic, PUD, pancreatitis, biliary pathology, hernia, volvulus, constipation, as well as other pathologies. IMPRESSION/MEDICAL DECISION MAKING: Patient presents with complaint of some right inguinal pain now moderate to generalized abdominal pain with some radiation more to the right side. Prior cholecystectomy. Not all that tender in the abdomen. UA was checked as well as basic laboratory studies. No evidence of marin hernia at this time. Denies testicular pain and I doubt testicular pathology at this point. High concern for stone. EKG and troponin were sent to exclude ACS. No evidence of acute hepatitis or pancreatitis on laboratory studies. Prior cholecystectomy. CT scan without contrast given his renal issues was completed to look for possible intra-abdominal pathology including nephrolithiasis. Given some IV fluids and Zofran. Laboratory studies here show borderline leukocytosis of 11 without significant anemia. No hypoglycemia. No significant electrolyte abnormality. Patient does have a creatinine elevation from baseline around 1.7-2.35 today. No evidence acute hepatitis or pancreatitis. CT scan shows an 8 mm right-sided kidney stone. Patient states that he has had prior intervention related to kidney stones done at the [facility] in [place]. He is unable to give significant details on this at this time. In review of medical record here. He had bilateral stones and a stent back in 2013 by [facility]. Given some oral hydration and IV hydration as decreased oral intake is likely cause of why his creatinine somewhat elevated. Without bilateral obstructing stones do not feel that at this time he acutely requires acute urological procedure. Again the patient was able to tolerate little bit by mouth but had another episode of diarrhea and does not feel well. Risk factors for C. difficile. Do not believe this represents coronavirus infection. Discussed with the patient discussed options of outpatient trial versus further observation here in the hospital. Patient again is hard to describe exactly what his symptoms are but states he just does not feel well. Given some Tylenol & a bit of fentanyl for any residual pain. Given this I will have the hospitalist evaluate the patient for further observation overnight. DIAGNOSIS: Right-sided kidney stone, nausea, dehydration, abdominal pain DISPOSITION: Being evaluated by the hospitalist Patient was agreeable with this plan. Discussed return precautions and advised follow up. Past Med/Surg History Medical History (Updated 12/17/19 @ 16:51 by Wilfredo Eid M.D.) CKD (chronic kidney disease) stage 3, GFR 30-59 ml/min (Chronic) Social History Feels Safe at Home: Yes Smoking Status: Never smoker Allergies Allergies Allergy/AdvReac Type Severity Reaction Status Date / Time Iodinated Contrast Media Allergy Intermediate Vomiting Verified 12/17/19 15:51 Home Meds Home Medications Medication Instructions Recorded Confirmed albuterol sulfate 90 mcg/actuation 1 - 2 puffs INH Q6H PRN gm 06/24/19 12/17/19 aerosol inhaler allopurinol 100 mg tablet 100 mg PO DAILY 06/24/19 12/17/19 alogliptin 12.5 mg tablet 12.5 mg PO DAILY 06/24/19 12/17/19 aspirin 81 mg tablet,delayed 81 mg PO DAILY 06/24/19 12/17/19 release clotrimazole 1 % topical cream 1 appln TOP QID gm 06/24/19 12/17/19 empagliflozin 25 mg tablet 25 mg PO DAILY 06/24/19 12/17/19 glipizide 5 mg tablet 5 mg PO QPM tab 06/24/19 12/17/19 glucose 4 gram chewable tablet 16 gm PO UD PRN tab 06/24/19 12/17/19 insulin glargine 100 unit/mL See Rx Instructions SQ DAILY 06/24/19 12/17/19 subcutaneous solution lisinopril 10 mg tablet 10 mg PO DAILY 06/24/19 12/17/19 metformin 1,000 mg tablet 1,000 mg PO BID 06/24/19 12/17/19 simvastatin 80 mg tablet 40 mg PO QPM tab 10/09/19 04/02/20 Results & Data (ED) Vital Signs Vital Signs - 24 hr 12/17/19 14:47 12/17/19 14:53 12/17/19 16:46 Temperature 36.8 C Temperature Source Oral Pulse Rate 88 Pulse Rate [Left Apical] 63 Pulse Rhythm [Left Apical] Regular Pulse Strength [Left Apical] Normal Respiratory Rate 18 22 Respiratory Effort / Characteristics Non-Labored Non-Labored Spontaneous Respiratory Depth Normal Normal Respiratory Pattern Regular Blood Pressure 158/72 H Blood Pressure [Left Arm] 137/68 Blood Pressure Mean 100 Blood Pressure Mean [Left Arm] 91 Blood Pressure Position [Left Arm] Lying Pulse Oximetry 92 94 Oxygen Delivery Method Room Air Room Air Sepsis Recent Fever Within 48 Hours No Sepsis New/Unexplained Change in Mental Status No Sepsis Action Taken by Nursing No Action Required 12/17/19 18:00 Temperature Temperature Source Pulse Rate Pulse Rate [Left Apical] Pulse Rhythm [Left Apical] Regular Pulse Strength [Left Apical] Normal Respiratory Rate 17 Respiratory Effort / Characteristics Non-Labored Spontaneous Respiratory Depth Normal Respiratory Pattern Regular Blood Pressure Blood Pressure [Left Arm] 142/71 H Blood Pressure Mean Blood Pressure Mean [Left Arm] 94 Blood Pressure Position [Left Arm] Lying Pulse Oximetry 94 Oxygen Delivery Method Sepsis Recent Fever Within 48 Hours Sepsis New/Unexplained Change in Mental Status Sepsis Action Taken by Nursing Laboratory Data Result diagrams: 12/17/19 15:17 12/17/19 15:17 Lab Results 12/17/19 12/17/19 12/17/19 Range/Units 15:00 15:17 15:17 WBC 11.02 H (4.8-10.8) K/uL RBC 5.48 (4.7-6.1) M/uL Hgb 14.9 (14.0-18.0) g/dL Hct 44.7 (42-52) % MCV 81.6 (80-100) fL MCH 27.2 (25-34) pg MCHC 33.3 (32-36) g/dL RDW Std Deviation 45.1 (36.4-46.3) fL RDW Coeff of Rea 15.1 H (11.5-14.5) % Plt Count 236 (130-400) K/uL MPV 9.5 (7.4-10.4) fL Immature Gran % (Auto) 0.4 % Neut % (Auto) 80.8 % Lymph % (Auto) 11.9 % [place] % (Auto) 6.1 % Eos % (Auto) 0.5 % Baso % (Auto) 0.3 % Immature Gran # (Auto) 0.04 H (0.00-0.02) K/uL Neut # (Auto) 8.91 H (1.4-6.5) K/uL Lymph # (Auto) 1.31 (1.2-3.4) K/uL Fre[place] # (Auto) 0.67 H (0.11-0.59) K/uL Eos # (Auto) 0.06 (0-0.5) K/uL Baso # (Auto) 0.03 (0-0.2) K/uL Sodium 136 (136-145) mmol/L Potassium 4.0 (3.5-5.1) mmol/L Chloride 103 (98-107) mmol/L Carbon Dioxide 25 (21-32) mmol/L Anion Gap 8.0 (3-11) BUN 32 H (7-18) mg/dl Creatinine 2.35 H (0.6-1.4) mg/dl Est Cr Clr Drug Dosing 34.8 ml/min Est GFR ( Amer) 31.3 Est GFR (Non-Af Amer) 27.0 BUN/Creatinine Ratio 13.4 (10-20) Glucose 68 L (70-99) mg/dl POC Glucose 70 (70-99) mg/dl Calcium 8.8 (8.5-10.1) mg/dl Total Bilirubin 1.6 H (0.2-1) mg/dl AST 30 (15-37) U/L ALT 54 (12-78) U/L Alkaline Phosphatase 92 (45-117) U/L Troponin I < 0.015 (0-0.045) ng/ml Total Protein 7.8 (6.4-8.2) gm/dl Albumin 3.8 (3.4-5.0) gm/dl Globulin 4.0 (2.5-4.0) gm/dl Albumin/Globulin Ratio 1.0 (0.9-2) Lipase 124 (73-393) U/L Urine Color Urine Appearance (Clear) Urine pH (4.5-7.5) Ur Specific [place] (1.000-1.030) Urine Protein (Negative) Urine Glucose (UA) (Negative) Urine Ketones (Negative) Urine Blood (Negative) Urine Nitrite (Negative) Urine Bilirubin (Negative) Urine Urobilinogen (Negative) Ur Leukocyte Esterase (Negative) Urine WBC (Auto) (0-5) /hpf Urine RBC (Auto) (0-4) /hpf U Hyaline Cast (Auto) (0-5) /lpf U Epithel Cells (Auto) (0-5) /lpf Urine Bacteria (Auto) (Negative) 12/17/19 Range/Units 15:53 WBC (4.8-10.8) K/uL RBC (4.7-6.1) M/uL Hgb (14.0-18.0) g/dL Hct (42-52) % MCV (80-100) fL MCH (25-34) pg MCHC (32-36) g/dL RDW Std Deviation (36.4-46.3) fL RDW Coeff of Rea (11.5-14.5) % Plt Count (130-400) K/uL MPV (7.4-10.4) fL Immature Gran % (Auto) % Neut % (Auto) % Lymph % (Auto) % [place] % (Auto) % Eos % (Auto) % Baso % (Auto) % Immature Gran # (Auto) (0.00-0.02) K/uL Neut # (Auto) (1.4-6.5) K/uL Lymph # (Auto) (1.2-3.4) K/uL [place] # (Auto) (0.11-0.59) K/uL Eos # (Auto) (0-0.5) K/uL Baso # (Auto) (0-0.2) K/uL Sodium (136-145) mmol/L Potassium (3.5-5.1) mmol/L Chloride (98-107) mmol/L Carbon Dioxide (21-32) mmol/L Anion Gap (3-11) BUN (7-18) mg/dl Creatinine (0.6-1.4) mg/dl Est Cr Clr Drug Dosing ml/min Est GFR ( Amer) Est GFR (Non-Af Amer) BUN/Creatinine Ratio (10-20) Glucose (70-99) mg/dl POC Glucose (70-99) mg/dl Calcium (8.5-10.1) mg/dl Total Bilirubin (0.2-1) mg/dl AST (15-37) U/L ALT (12-78) U/L Alkaline Phosphatase (45-117) U/L Troponin I (0-0.045) ng/ml Total Protein (6.4-8.2) gm/dl Albumin (3.4-5.0) gm/dl Globulin (2.5-4.0) gm/dl Albumin/Globulin Ratio (0.9-2) Lipase (73-393) U/L Urine Color Dark Yellow Urine Appearance Clear (Clear) Urine pH 5.0 (4.5-7.5) Ur Specific [place] 1.028 (1.000-1.030) Urine Protein Negative (Negative) Urine Glucose (UA) 3+ H (Negative) Urine Ketones Negative (Negative) Urine Blood Trace H (Negative) Urine Nitrite Negative (Negative) Urine Bilirubin Negative (Negative) Urine Urobilinogen Negative (Negative) Ur Leukocyte Esterase Negative (Negative) Urine WBC (Auto) 1-5 (0-5) /hpf Urine RBC (Auto) 0-4 (0-4) /hpf U Hyaline Cast (Auto) 1-5 (0-5) /lpf U Epithel Cells (Auto) 5-10 H (0-5) /lpf Urine Bacteria (Auto) Negative (Negative) Administered Medications Discontinued Medications Acetaminophen (Tylenol) 1,000 mg PO NOW STA Stop: 12/17/19 18:20 Last Admin: 12/17/19 18:36 Dose: 1,000 mg Documented by: [id number] Fentanyl Citrate (Fentanyl Citrate) 25 mcg IV NOW STA Stop: 12/17/19 18:19 Last Admin: 12/17/19 18:35 Dose: 25 mcg Documented by: [id number] Sodium Chloride (Nss 1000ml) 500 mls @ 999 mls/hr IV .Q31M ONE Stop: 12/17/19 15:46 Last Infusion: 12/17/19 16:52 Dose: 0 mls/hr Documented by: [id number] Admin: 12/17/19 15:50 Dose: 999 mls/hr Documented by: [id number] Sodium Chloride (Nss 1000ml) 500 mls @ 999 mls/hr IV .Q31M ONE Stop: 12/17/19 16:58 Last Admin: 12/17/19 16:56 Dose: 999 mls/hr Documented by: [id number] Ondansetron HCl (Zofran) 4 mg IV NOW STA Stop: 12/17/19 15:02 Last Admin: 12/17/19 15:50 Dose: 4 mg Documented by: [id number] Discharge Plan Visit Data Chief Complaint: Abdominal Pain Stated Complaint: ABD PAIN, NAUSEA ED Provider: Wilfredo Eid Discharge Problem: Right distal ureteral calculus, Abdominal pain, Nausea & vomiting Patient Disposition: Home - Self-Care Condition: Good Discharge Instructions Yesenia/Other Patient Handouts: ED Renal Stone w [facility] Forms Stand Alone Forms: My [facility], Important Visit Information Prescriptions Prescriptions: No Action allopurinol 100 mg tablet 100 mg PO DAILY RF: 0 alogliptin 12.5 mg tablet 12.5 mg PO DAILY RF: 0 clotrimazole 1 % cream 1 appln TOP QID RF: 0 empagliflozin 25 mg tablet 25 mg PO DAILY RF: 0 glipizide 5 mg tablet 5 mg PO QPM RF: 0 glucose 4 gram tablet,chewable 16 gm PO UD PRN (Reason: hypoglycemia) RF: 0 insulin glargine 100 unit/mL solution See Rx Instructions SQ DAILY RF: 0 lisinopril 10 mg tablet 10 mg PO DAILY RF: 0 metformin 1,000 mg tablet 1,000 mg PO BID RF: 0 simvastatin 80 mg tablet 40 mg PO QPM RF: 0 aspirin [Adult Low Dose Aspirin] 81 mg tablet,delayed release (DR/EC) 81 mg PO DAILY RF: 0 albuterol sulfate 90 mcg/actuation HFA aerosol inhaler 1 - 2 puffs INH Q6H PRN (Reason: shortness of breath or wheezing) RF: 0 Referrals Referrals: Keith Benoit MD [Physician] - (Call office to discuss 1 week follow up for R 8mm stone. ) PCP,NO [Primary Care Provider] - Discharge Problem: Abdominal pain Qualifiers: Abdominal location: generalized Qualified Code(s): R10.84 - Generalized abdominal pain Nausea & vomiting Qualifiers: Vomiting type: unspecified Vomiting Intractability: non-intractable Qualified Code(s): R11.2 - Nausea with vomiting, unspecified
[2019-12-17] MEDS ORDERED: SODIUM CHLORIDE 0.9% 1000ML 500 ML IV ONE ×2 (15:16→16:28)
[2019-12-17 15:34] LABS: Basophils # (auto) 0.03 K/uL (0-0.2); Basophils % (auto) 0.3 %; Eosinophils # (auto) 0.06 K/uL (0-0.5); Eosinophils % (auto) 0.5 %; Hematocrit (blood only) 44.7 % (42-52); Hemoglobin 14.9 g/dL (14.0-18.0); Immature Granulocytes # (auto) 0.04 K/uL (0.00-0.02); Immature Granulocytes % (auto) 0.4 %; Lymphocytes # (auto) 1.31 K/uL (1.2-3.4); Lymphocytes % (auto) 11.9 %; Mean Corpuscular Hemoglobin 27.2 pg (25-34); Mean Corpuscular Hgb Conc 33.3 g/dL (32-36); Mean Corpuscular Volume 81.6 fL (80-100); Mean Platelet Volume 9.5 fL (7.4-10.4); Monocytes # (auto) 0.67 K/uL (0.11-0.59); Monocytes % (auto) 6.1 %; Neutrophils # (auto) 8.91 K/uL (1.4-6.5); Neutrophils % (auto) 80.8 %; Platelet Count 236 K/uL (130-400); RDW Coefficient of Variation 15.1 % (11.5-14.5); RDW Standard Deviation 45.1 fL (36.4-46.3); Red Blood Count 5.48 M/uL (4.7-6.1); White Blood Count 11.02 K/uL (4.8-10.8)
--- NOTE | 2019-12-17 15:47 | CT Scan Report ---
CT SCAN OF THE ABDOMEN AND PELVIS WITHOUT CONTRAST CLINICAL HISTORY: abd pain, n/v/d COMPARISON STUDY: 06/29/2014 TECHNIQUE: CT scan of the abdomen and pelvis was performed from the lung bases to the proximal femurs . Images are reviewed in the axial, sagittal, and coronal planes. IV contrast was not administered fo r this examination. A dose lowering technique was utilized adhering to the principles of ALARA. CT DOSE: 942.22 mGy.cm FINDINGS: Lower chest: There are basilar opacities which are felt to be atelectatic. Liver: There is mild hepatic steatosis. There is borderline hepatomegaly. Gallbladder: Surgically absent Spleen: Normal in size and attenuation. Pancreas: Unremarkable. Adrenal glands: Unremarkable. Kidneys: There are multiple bilateral renal calculi. There are several left renal cysts, the largest of which measures 35 mm. There is right-sided hydronephrosis and hydroureter. There is an obstructing 8 mm at the inferior S3 level mid right ureteral calculus Bowel: There are no transition zones to indicate bowel obstruction. There is no evidence of acute div erticulitis. There is no evidence of acute appendicitis. Peritoneum: There is no intraperitoneal free air or abdominal ascites. There is a tiny fat-containing umbilical hernia Vasculature: The abdominal aorta is normal in course and caliber. Adenopathy: None. Pelvic viscera: There is prostatomegaly. Skeletal structures: No destructive osseous lesions are seen. IMPRESSION: 1. Bilateral nephrolithiasis 2. Obstructing 8 mm mid right ureteral calculus ACT 112: Negative or not required by law. Electronically signed by: Wilber Peguero M.D. 12/17/2019 3:45 PM
[2019-12-17 15:49] LABS: Alanine Aminotransferase 54 U/L (12-78); Albumin Level 3.8 gm/dl (3.4-5.0); Aspartate Aminotransferase 30 U/L (15-37); BUN Creatinine Ratio 13.4 (10-20); Blood Urea Nitrogen 32 mg/dl (7-18); Calcium 8.8 mg/dl (8.5-10.1); Carbon Dioxide 25 mmol/L (21-32); Chloride 103 mmol/L (98-107); Creatinine Clr Calc Pharmacy 34.8 ml/min; Est GFR (African American) 31.3; Glucose 68 mg/dl (70-99); Lipase 124 U/L (73-393); Sodium 136 mmol/L (136-145)
[2019-12-17 15:54] LABS: Alkaline Phosphatase 92 U/L (45-117); Bilirubin,Total 1.6 mg/dl (0.2-1); Total Protein 7.8 gm/dl (6.4-8.2); Troponin I < 0.015 ng/ml (0-0.045)
[2019-12-17 16:10] LABS: Appearance Urine Clear (Clear); Bacteria Urine Automated Negative (Negative); Bilirubin Urine Negative (Negative); Blood Urine Trace (Negative); Color Urine Dark Yellow; Glucose Urine UA 3+ (Negative); Ketones Urine Negative (Negative); Leukocyte Esterase Urine Negative (Negative); Nitrite Urine Negative (Negative); Protein Urine Negative (Negative); RBC Urine Automated 0-4 /hpf (0-4); Specific Gravity Urine 1.028 (1.000-1.030); Urobilinogen Urine Negative (Negative)
[2019-12-17] MEDS ORDERED: fentaNYL citrate 100 MCG/2 ML VIAL IV STA (18:18)
[2019-12-17] MEDS ORDERED: ACETAMINOPHEN 500 MG TAB PO STA (18:19)
[2019-12-17] MEDS ORDERED: ONDANSETRON INJ 2 MG/ML 2 ML VIAL IV PRN (19:55)
[2019-12-17] MEDS ORDERED: HYDROmorphone INJ 0.5 MG/0.5 ML SYR IV PRN (19:55)
[2019-12-17] MEDS ORDERED: ACETAMINOPHEN 325 MG TAB PO PRN (19:55)
[2019-12-17] MEDS ORDERED: GLUCOSE 40% GEL 15 GM TUBE PO PRN (20:15)
[2019-12-17] MEDS ORDERED: GLUCOSE 10 TABS/TUBE PO PRN (20:15)
[2019-12-17] MEDS ORDERED: DEXTROSE 50% 50 ML SYRINGE IV PRN (20:15)
[2019-12-17] MEDS ORDERED: CARBOHYDRATES FOR HYPOGLYCEMIA PO PRN (20:15)
[2019-12-17] MEDS ORDERED: GLUCAGON FOR INJ 1 MG VIAL IM PRN (20:15)
[2019-12-17] MEDS: SODIUM CHLORIDE 0.9% 1000ML 1,000 ML IV SCH (20:17)
[2019-12-17] MEDS ORDERED: cefTRIAXone SODIUM 1,000 MG in DEXTROSE 5% 50 ML IV SCH (20:30)
[2019-12-17] MEDS ORDERED: cefTRIAXone SODIUM 2,000 MG in DEXTROSE 5% 50 ML IV SCH (20:30)
[2019-12-17] MEDS ORDERED: INSULIN GLARGINE SOLOSTAR 100 UNITS/ML 3 ML PEN SC SCH (21:00)
[2019-12-17] MEDS: INSULIN ASPART 100 UNITS/ML 3 ML PEN SC SCH (21:36)
[2019-12-17] MEDS: INSULIN GLARGINE SOLOSTAR 100 UNITS/ML 3 ML PEN SC SCH (21:39)
--- NOTE | 2019-12-17 21:39 | History & Physical Report ---
Date of Service December 17, 2019 Assessment & Plan (1) Right ureteral stone: pain control, IV fluids, no signs of infection at this time NPO after midnight consult urology for possible stent tomorrow (2) Diabetes mellitus: plan for NPO after midnight 1/2 normal dose of Lantus, Novolog SS diabetic diet this evening then NPO (3) CKD (chronic kidney disease) stage 3, GFR 30-59 ml/min: follow Cr, it is slightly elevated from baseline (4) Hypertension: BP medications Admission and Anticipated Discharge Date Admission Date: December 17, 2019 History of Present Illness Chief Complaint: I have right groin pain Primary Care Provider: NO PCP 69 yo male presents with right sided groin pain, mild abdominal pain. Says that he is making urine, denies any hematuria, denies dysuria. Says he has a history of renal stones, feels like he passed one a few months ago. The pain is moderate, 5-6 out of 10 at worst. Started a few days ago. No nausea or vomiting. No fever/chills, no sweats, no chest pain, no dyspnea. The pain was relieved by Fentanyl IV in the ED. Nothing made the pain worse, it was fairly constant prior to the Fentanyl. In the ED his Cr was elevated from baseline. CT showed an obstructing right sided 8mm stone. WBC 11k. We are asked to admit for treatment of the ureteral stone. Allergies Allergy/AdvReac Type Severity Reaction Status Date / Time Iodinated Contrast Media Allergy Intermediate Vomiting Verified 12/17/19 15:51 Home Medications Home Medications Medication Instructions Recorded Confirmed Type albuterol sulfate 90 mcg/actuation 1 - 2 puffs INH Q6H PRN gm 06/24/19 12/17/19 History aerosol inhaler allopurinol 100 mg tablet 100 mg PO DAILY 06/24/19 12/17/19 History alogliptin 12.5 mg tablet 12.5 mg PO DAILY 06/24/19 12/17/19 History aspirin 81 mg tablet,delayed 81 mg PO DAILY 06/24/19 12/17/19 History release clotrimazole 1 % topical cream 1 appln TOP QID gm 06/24/19 12/17/19 History empagliflozin 25 mg tablet 25 mg PO DAILY 06/24/19 12/17/19 History glipizide 5 mg tablet 5 mg PO QPM tab 06/24/19 12/17/19 History glucose 4 gram chewable tablet 16 gm PO UD PRN tab 06/24/19 12/17/19 History insulin glargine 100 unit/mL See Rx Instructions SQ DAILY 06/24/19 12/17/19 History subcutaneous solution lisinopril 10 mg tablet 10 mg PO DAILY 06/24/19 12/17/19 History metformin 1,000 mg tablet 1,000 mg PO BID 06/24/19 12/17/19 History simvastatin 80 mg tablet 40 mg PO QPM tab 06/24/19 12/17/19 History Past Med/Surg History Medical History (Updated 12/17/19 @ 21:38 by Russ Ortiz DO) BMI 34.0-34.9,adult (Chronic) CKD (chronic kidney disease) stage 3, GFR 30-59 ml/min (Chronic) Diabetes mellitus (Chronic) Dyslipidemia (Chronic) Hypertension (Chronic) Sleep apnea (Chronic) Family History (Updated 12/17/19 @ 21:34 by Russ Ortiz DO) Other Diabetes Social History Preferred Language: Martiniquais Communication Ability: Effective Bevel Polisher Required: No Beliefs That Will Affect Care: None Current Living Situation: Spouse Other Information That Helps Us Care for You: No Feels Safe at Home: Yes Safety Concerns: Feels Safe At This Time Smoking Status: Former smoker Do You Dip or Chew Tobacco: No ; Second Hand Exposure: No ; Tobacco Cessation Education Requested by Patient: No Hx Alcohol Use: No Hx Substance Use: No Review of Systems Review of Systems: All systems reviewed & are unremarkable except as noted in HPI & below Constitutional: no fever, no chills, no sweats, no fatigue and no weakness Respiratory: no cough and no dyspnea Cardiovascular: no chest pain and no edema Gastrointestinal: + abdominal pain (right sided, right groin pain); no nausea, no vomiting, no constipation and no blood in stools Genitourinary: no dysuria, no difficulty urinating and no hematuria Physical Exam Constitutional: WD/WN, vitals as above Eyes: PERRL, conjunctivae normal, anicteric sclerae ENMT: external ear and nose normal, oropharynx normal Neck: trachea midline, no thyromegaly Respiratory: normal respiratory effort, lungs clear to auscultation Cardiovascular: RRR, no murmur, no edema Gastrointestinal (Abdomen): normal bowel sounds, soft, nontender, no hepatosplenomegaly Musculoskeletal: no cyanosis or clubbing, extremities motor strength 5/5 Skin: no rashes, warm and dry Neurologic: patellar DTR's 2+ bilat, sensation intact and PERRL, EOMI, accommodation nl, no face palsy, no dysarthria Psychiatric: A+Ox3, euthymic affect Lymphatic: no cervical or axillary lymphadenopathy Results & Data Results & Data ([facility]) Vital Signs (Past 12 Hours) Vital Signs Temp Pulse Pulse Pulse Resp BP BP 12/17/19 19:50 36.9 C 65 16 157/69 H 12/17/19 19:30 60 19 135/69 12/17/19 19:00 63 20 137/69 12/17/19 18:00 17 142/71 H 12/17/19 16:46 63 22 137/68 12/17/19 14:47 36.8 C 88 18 158/72 H Pulse Ox 12/17/19 19:50 95 12/17/19 19:30 95 12/17/19 19:00 96 12/17/19 18:00 94 12/17/19 16:46 94 12/17/19 14:47 92 Laboratory Results Laboratory Results - last 24 hr 12/17/19 12/17/19 12/17/19 15:00 15:17 15:17 WBC 11.02 H RBC 5.48 Hgb 14.9 Hct 44.7 MCV 81.6 MCH 27.2 MCHC 33.3 RDW Std Deviation 45.1 RDW Coeff of Rea 15.1 H Plt Count 236 MPV 9.5 Immature Gran % (Auto) 0.4 Neut % (Auto) 80.8 Lymph % (Auto) 11.9 Bonner % (Auto) 6.1 Eos % (Auto) 0.5 Baso % (Auto) 0.3 Immature Gran # (Auto) 0.04 H Neut # (Auto) 8.91 H Lymph # (Auto) 1.31 Bonner # (Auto) 0.67 H Eos # (Auto) 0.06 Baso # (Auto) 0.03 Sodium 136 Potassium 4.0 Chloride 103 Carbon Dioxide 25 Anion Gap 8.0 BUN 32 H Creatinine 2.35 H Est Cr Clr Drug Dosing 34.8 Est GFR ( Amer) 31.3 Est GFR (Non-Af Amer) 27.0 BUN/Creatinine Ratio 13.4 Glucose 68 L POC Glucose 70 Calcium 8.8 Total Bilirubin 1.6 H AST 30 ALT 54 Alkaline Phosphatase 92 Troponin I < 0.015 Total Protein 7.8 Albumin 3.8 Globulin 4.0 Albumin/Globulin Ratio 1.0 Lipase 124 Urine Color Urine Appearance Urine pH Ur Specific [place] Urine Protein Urine Glucose (UA) Urine Ketones Urine Blood Urine Nitrite Urine Bilirubin Urine Urobilinogen Ur Leukocyte Esterase Urine WBC (Auto) Urine RBC (Auto) U Hyaline Cast (Auto) U Epithel Cells (Auto) Urine Bacteria (Auto) 12/17/19 12/17/19 15:53 20:44 WBC RBC Hgb Hct MCV MCH MCHC RDW Std Deviation RDW Coeff of Rea Plt Count MPV Immature Gran % (Auto) Neut % (Auto) Lymph % (Auto) Bonner % (Auto) Eos % (Auto) Baso % (Auto) Immature Gran # (Auto) Neut # (Auto) Lymph # (Auto) Bonner # (Auto) Eos # (Auto) Baso # (Auto) Sodium Potassium Chloride Carbon Dioxide Anion Gap BUN Creatinine Est Cr Clr Drug Dosing Est GFR ( Amer) Est GFR (Non-Af Amer) BUN/Creatinine Ratio Glucose POC Glucose 154 H Calcium Total Bilirubin AST ALT Alkaline Phosphatase Troponin I Total Protein Albumin Globulin Albumin/Globulin Ratio Lipase Urine Color Dark Yellow Urine Appearance Clear Urine pH 5.0 Ur Specific [place] 1.028 Urine Protein Negative Urine Glucose (UA) 3+ H Urine Ketones Negative Urine Blood Trace H Urine Nitrite Negative Urine Bilirubin Negative Urine Urobilinogen Negative Ur Leukocyte Esterase Negative Urine WBC (Auto) 1-5 Urine RBC (Auto) 0-4 U Hyaline Cast (Auto) 1-5 U Epithel Cells (Auto) 5-10 H Urine Bacteria (Auto) Negative Diagnostic Findings CT abdomen/pelvis IMPRESSION: 1. Bilateral nephrolithiasis 2. Obstructing 8 mm mid right ureteral calculus Medications Administered Current Inpatient Medications Acetaminophen (Tylenol) 650 mg PO Q4H PRN PRN Reason: pain/fever Stop: 01/16/20 19:54 Aspirin (Ecotrin Ectab) 81 mg PO DAILY DEVIN Stop: 01/17/20 08:59 Dextrose (Dextrose 50%) 25 - 50 ml IV UD PRN; Protocol PRN Reason: Hypoglycemia Protocol Stop: 01/16/20 20:14 Glucagon (Glucagen) 1 mg IM UD PRN; Protocol PRN Reason: Hypoglycemia Protocol Stop: 01/16/20 20:14 Glucose (Glucose 40%) 15 - 30 gm PO UD PRN; Protocol PRN Reason: Hypoglycemia Protocol Stop: 01/16/20 20:14 Glucose (Dex4 Glucose) 4 - 8 tabs PO UD PRN; Protocol PRN Reason: Hypoglycemia Protocol Stop: 01/16/20 20:14 Heparin Sodium (Porcine) (Heparin Sodium (Porcine)) 5,000 units SQ Q8 DEVIN Stop: 01/16/20 21:59 Hydromorphone HCl (Dilaudid) 0.5 mg IV Q4 PRN PRN Reason: Pain Stop: 12/31/19 19:54 Sodium Chloride (Nss 1000ml) 1,000 mls @ 80 mls/hr IV .[id number] DEVIN Stop: 01/16/20 19:54 Last Admin: 12/17/19 20:17 Dose: 80 mls/hr Documented by: Ceftriaxone Sodium 2,000 mg/ (Dextrose) 70 mls @ 100 mls/hr IV DAILY@1999 DEVIN Stop: 12/27/19 20:29 Last Infusion: 12/17/19 21:25 Dose: Infused Documented by: Insulin Aspart (Novolog Flexpen) 0 units SC ACHS [facility] Stop: 01/16/20 20:59 Insulin Glargine (Lantus Solostar Pen) 30 units SC QAM DEVIN Stop: 01/17/20 08:59 Insulin Glargine (Lantus Solostar Pen) 20 units SC QPM DEVIN Stop: 01/16/20 20:59 Miscellaneous (Carbohydrates For Hypoglycemia) 15 - 30 gm PO UD PRN PRN Reason: Hypoglycemia Treatment Stop: 01/16/20 20:14 Ondansetron HCl (Zofran) 4 mg IV Q6H PRN PRN Reason: Nausea Stop: 01/16/20 19:54 Code Status & VTE Plan VTE Prophylaxis Plan VTE Prophylaxis will be ordered: Yes PG Care Time/CCT Total # of Minutes Spent Total Time Spent with Patient: Total time spent is greater than 50% in coordination of care (as documented) at patient's floor/unit and/or counseling patient: Coding Level of Care Code 04721 Initial Inpt Care Lvl 2 Diagnoses Right ureteral stone N20.1 Diabetes mellitus E11.9 CKD (chronic kidney disease) stage 3, GFR 30-59 ml/min N18.3 Hypertension I10
[2019-12-17] MEDS: HEPARIN SOD 5,000 UNIT/0.5 ML VIAL SQ SCH (21:41)
[2019-12-18 05:18] LABS: Basophils # (auto) 0.02 K/uL (0-0.2); Basophils % (auto) 0.2 %; Eosinophils # (auto) 0.11 K/uL (0-0.5); Eosinophils % (auto) 1.3 %; Hematocrit (blood only) 40.8 % (42-52); Hemoglobin 13.2 g/dL (14.0-18.0); Immature Granulocytes # (auto) 0.02 K/uL (0.00-0.02); Immature Granulocytes % (auto) 0.2 %; Lymphocytes # (auto) 1.35 K/uL (1.2-3.4); Lymphocytes % (auto) 15.9 %; Mean Corpuscular Hemoglobin 26.8 pg (25-34); Mean Corpuscular Hgb Conc 32.4 g/dL (32-36); Mean Corpuscular Volume 82.8 fL (80-100); Mean Platelet Volume 9.8 fL (7.4-10.4); Monocytes # (auto) 0.58 K/uL (0.11-0.59); Monocytes % (auto) 6.8 %; Neutrophils # (auto) 6.41 K/uL (1.4-6.5); Neutrophils % (auto) 75.6 %; Platelet Count 208 K/uL (130-400); RDW Coefficient of Variation 15.2 % (11.5-14.5); RDW Standard Deviation 46.1 fL (36.4-46.3); Red Blood Count 4.93 M/uL (4.7-6.1); White Blood Count 8.49 K/uL (4.8-10.8)
[2019-12-18 05:45] LABS: Calcium 7.9 mg/dl (8.5-10.1); Creatinine Clr Calc Pharmacy 33.7 ml/min; Est GFR (African American) 30.7; Est GFR (Non-African American) 26.5; Potassium 3.8 mmol/L (3.5-5.1)
[2019-12-18] MEDS ORDERED: CIPROFLOXACIN / D5W 200 MG/100 ML BAG IV SCH (06:00)
[2019-12-18] MEDS: HEPARIN SOD 5,000 UNIT/0.5 ML VIAL SQ SCH ×2 (06:02→17:45)
[2019-12-18] MEDS: INSULIN ASPART 100 UNITS/ML 3 ML PEN SC SCH ×3 (08:00→17:46)
--- NOTE | 2019-12-18 08:26 | Urology Consultation ---
Date of Consultation December 18, 2019 Assessment & Plan (1) Right ureteral stone: obstructing right ureteral stone - plan for surgical intervention now - will attempt to treat the stone - cystoscopy, right ureteroscopy, laser lithotripsy and stent - risks, benefits and alternatives discussed - cover with renal dosed cipro History of Present Illness Attending Physician: Russ Ortiz DO History of Present Illness 69y/o male w/ some baseline CKD presenting through the ER yesterday with acute renal colic and elevated cr - imaging (CT) reviewed and discussed - shows b.l renal stones, renal cysts, notable right hydronephrosis proximal to an obstructing/large right mid ureteral calculus - nausea/vomiting - pain currently ok on meds - no infectious signs/symptoms Allergies Allergy/AdvReac Type Severity Reaction Status Date / Time Iodinated Contrast Media Allergy Intermediate Vomiting Verified 12/17/19 15:51 Home Medications Home Medications Medication Instructions Recorded Confirmed Type albuterol sulfate 90 mcg/actuation 1 - 2 puffs INH Q6H PRN gm 06/24/19 12/17/19 History aerosol inhaler allopurinol 100 mg tablet 100 mg PO DAILY 06/24/19 12/17/19 History alogliptin 12.5 mg tablet 12.5 mg PO DAILY 06/24/19 12/17/19 History aspirin 81 mg tablet,delayed 81 mg PO DAILY 06/24/19 12/17/19 History release clotrimazole 1 % topical cream 1 appln TOP QID gm 06/24/19 12/17/19 History empagliflozin 25 mg tablet 25 mg PO DAILY 06/24/19 12/17/19 History glipizide 5 mg tablet 5 mg PO QPM tab 06/24/19 12/17/19 History glucose 4 gram chewable tablet 16 gm PO UD PRN tab 06/24/19 12/17/19 History insulin glargine 100 unit/mL See Rx Instructions SQ DAILY 06/24/19 12/17/19 History subcutaneous solution lisinopril 10 mg tablet 10 mg PO DAILY 06/24/19 12/17/19 History metformin 1,000 mg tablet 1,000 mg PO BID 06/24/19 12/17/19 History simvastatin 80 mg tablet 40 mg PO QPM tab 06/24/19 12/17/19 History Patient History Medical History BMI 34.0-34.9,adult (Chronic) CKD (chronic kidney disease) stage 3, GFR 30-59 ml/min (Chronic) Diabetes mellitus (Chronic) Dyslipidemia (Chronic) Hypertension (Chronic) Sleep apnea (Chronic) Surgical History (Updated 12/18/19 @ 08:36 by Aiden Saunders MD) Status post laser lithotripsy of ureteral calculus Family History Other Diabetes Social History Preferred Language: [place] Communication Ability: Effective Transfer Station Attendant Required: No Beliefs That Will Affect Care: None Current Living Situation: Spouse Other Information That Helps Us Care for You: No Feels Safe at Home: Yes Safety Concerns: Feels Safe At This Time Smoking Status: Former smoker Do You Dip or Chew Tobacco: No ; Second Hand Exposure: No ; Tobacco Cessation Education Requested by Patient: No Hx Alcohol Use: No Hx Substance Use: No Review of Systems Constitutional: no fever, no chills and no fatigue Eyes: no worsening vision Ear, Nose, Mouth, Throat: no facial pain and no pain with swallowing Respiratory: no cough and no dyspnea Cardiovascular: no chest pain and no palpitations Gastrointestinal: + abdominal pain, + nausea and + vomiting Musculoskeletal: no back pain Integumentary: no rash and no urticaria Neurologic: no gait abnormality and no unsteadiness Psychiatric: no behavioral changes and no depression Endocrine: no fatigue Physical Exam Physical Exam: moderately tender on the right flank Constitutional: well developed and well nourished Neck: neck nontender Respiratory: normal respiratory effort; no respiratory distress and does not use accessory muscles Cardiovascular: Rate/Rhythm: regular rate Vessels: radial pulses present Extremities: no edema Gastrointestinal (Abdomen): Inspection/Auscultation: abdomen normal to inspection Percussion/Palpation: + abdomen tender and abdomen soft; no guarding Musculoskeletal: Head/Neck/Chest: normocephalic and head atraumatic Extremities: extremities normal to inspection Skin: no rashes and no lesions Trauma: no evidence of skin trauma Neurologic: awake; not obtunded Speech / Cognition: normal speech Motor/Sensory: no tremor Psychiatric: Orientation: alert and oriented x 3 Genitourinary: no CVA tenderness Lymphatic: no lymphadenopathy Results & Data Vital Signs (Past 12 Hours) Vital Signs Temp Pulse Resp BP Pulse Ox 12/18/19 07:20 36.7 C 55 L 18 130/72 97 12/17/19 22:50 37.1 C 53 L 16 126/70 95 PG Care Time/CCT Total # of Minutes Spent Total Time Spent with Patient: Total time spent is greater than 50% in coordination of care (as documented) at patient's floor/unit and/or counseling patient: Coding Level of Care Code 35873 Inpt Consult Level 4 Diagnoses Right ureteral stone N20.1
[2019-12-18] MEDS ORDERED: ASPIRIN 81 MG ECTAB PO SCH (09:00)
[2019-12-18] MEDS: SODIUM CHLORIDE 0.9% 1000ML 1,000 ML IV SCH (09:28)
[2019-12-18] MEDS ORDERED: LIDOCAINE HCL 2% 2 ML VIAL/AMP(20MG/ML) INFIL ONE (12:09)
[2019-12-18] MEDS ORDERED: ONDANSETRON INJ 2 MG/ML 2 ML VIAL ONE (12:09)
[2019-12-18] MEDS ORDERED: DEXAMETHASONE SOD INJ 4 MG/ML VIAL ONE (12:09)
[2019-12-18] MEDS ORDERED: MIDAZOLAM HCL 1 MG/ML 2ML VIAL ONE (12:09)
[2019-12-18] MEDS ORDERED: PROPOFOL IV EMULSION 10 MG/ML 20 ML VIAL IV ONE (12:09)
[2019-12-18] MEDS ORDERED: fentaNYL citrate 100 MCG/2 ML VIAL ONE (12:09)
--- NOTE | 2019-12-18 12:22 | Anesthesiology Consultation ---
Date of Service December 18, 2019 Assessment & Plan Consults Requested Pulmonary ASA ASA3 Proposed Anesthesia Anesthesia Type: General Risk / Benefits Reviewed With: PT / POA / Parent / Guardian, Accepts Plan and Informed Consent Obtained History Surgery Operation Date: 12/18/19 10:55 Proposed Procedures p Right Cystoscopy, Ureteroscopy, Laser Lithotripsy; Stent Placement - Aiden Saunders MD Height/Weight Height: 5 ft 9 in Weight: 101.3 kg Allergies Allergy/AdvReac Type Severity Reaction Status Date / Time Iodinated Contrast Media Allergy Intermediate Vomiting Verified 12/17/19 15:51 Medications Home Medications Medication Instructions Recorded Confirmed Last Taken albuterol sulfate 90 mcg/actuation 1 - 2 puffs INH Q6H PRN gm 06/24/19 12/17/19 12/17/19 aerosol inhaler allopurinol 100 mg tablet 100 mg PO DAILY 06/24/19 12/17/19 12/17/19 alogliptin 12.5 mg tablet 12.5 mg PO DAILY 06/24/19 12/17/19 12/17/19 aspirin 81 mg tablet,delayed 81 mg PO DAILY 06/24/19 12/17/19 12/17/19 release clotrimazole 1 % topical cream 1 appln TOP QID gm 06/24/19 12/17/19 12/16/19 empagliflozin 25 mg tablet 25 mg PO DAILY 06/24/19 12/17/19 12/17/19 glipizide 5 mg tablet 5 mg PO QPM tab 06/24/19 12/17/19 12/16/19 glucose 4 gram chewable tablet 16 gm PO UD PRN tab 06/24/19 12/17/19 Unknown insulin glargine 100 unit/mL See Rx Instructions SQ DAILY 06/24/19 12/17/19 12/17/19 subcutaneous solution lisinopril 10 mg tablet 10 mg PO DAILY 06/24/19 12/17/19 12/17/19 metformin 1,000 mg tablet 1,000 mg PO BID 06/24/19 12/17/19 12/17/19 simvastatin 80 mg tablet 40 mg PO QPM tab 06/24/19 12/17/19 12/16/19 Active Medications Generic Name Dose Route Start Last Admin Trade Name Freq PRN Reason Stop Dose Admin Glucose 15 - 30 gm 12/17/19 20:15 12/18/19 04:03 Glucose 40% PO 01/16/20 20:14 30 gm UD PRN Administration Hypoglycemia Protocol Protocol Heparin Sodium (Porcine) 5,000 units 12/17/19 22:00 12/18/19 06:02 Heparin Sodium (Porcine) SQ 01/16/20 21:59 5,000 units Q8 DEVIN Administration Sodium Chloride 1,000 mls @ 80 mls/hr 12/17/19 19:55 12/18/19 09:28 Nss 1000ml IV 01/16/20 19:54 80 mls/hr .[id number] DEVIN Administration Ceftriaxone Sodium 2,000 mg/ 70 mls @ 100 mls/hr 12/17/19 20:30 12/17/19 21:25 Dextrose IV 12/27/19 20:29 Infused DAILY@2000 DEVIN Infusion Insulin Aspart 0 units 12/17/19 21:00 12/17/19 21:36 Novolog Flexpen SC 01/16/20 20:59 Not Given ACHS DEVIN Insulin Glargine 20 units 12/17/19 21:00 12/17/19 21:42 Lantus Solostar Pen SC 01/16/20 20:59 20 units QPM DEVIN Administration Ondansetron HCl 4 mg 12/17/19 19:55 12/17/19 22:18 Zofran IV 01/16/20 19:54 4 mg Q6H PRN Administration Nausea NPO Date Last Intake of Fluids: 12/17/19 Time Last Intake of Fluids: 23:59 Last Intake of Fluids Comment: Glucose Gel at 0330 Date Last Intake of Solids: 12/17/19 Time Last Intake of Solids: 20:00 Past Medical History Medical History BMI 34.0-34.9,adult (Chronic) CKD (chronic kidney disease) stage 3, GFR 30-59 ml/min (Chronic) Diabetes mellitus (Chronic) Dyslipidemia (Chronic) Hypertension (Chronic) Sleep apnea (Chronic) Exercise / Class Metabolic Activity II 4-5 Yardwork/Stairs/Walk up hill Past Family History Family History Other Diabetes Past Surgical History Surgical History Status post laser lithotripsy of ureteral calculus Past Anesthesia History No Hx of Anesthesia Complications and No Family Hx of Anesthesia Complications History of PONV No Hx of PONV and No Hx of Motion Sickness Social History Smoking Status: Former smoker Do You Dip or Chew Tobacco: No Hx Alcohol Use: No Hx Substance Use: No Review of Systems denies fever/cough/ colds/ chest pain/ SOB/ OLE Constitutional: no fever and no chills Respiratory: no cough and no dyspnea denies OLE Cardiovascular: no chest pain and no dyspnea on exertion Physical Exam Vital Signs Last Vital Signs Temp 36.8 C 12/18/19 12:03 Pulse 62 12/18/19 12:03 Resp 18 12/18/19 12:03 BP 122/99 12/18/19 12:03 Pulse Ox 96 12/18/19 12:03 ENMT Mouth: + poor dentition; no TMJ abnormality and no dentition abnormality Thyromental Distance: > or= 3.5 Finger Breadths Mallampati Class: II Neck neck extension not limited Respiratory normal respiratory effort; no respiratory distress Auscultation: lungs clear to auscultation bilaterally Cardiovascular Rate/Rhythm: regular rate and regular rhythm Neurologic moves all extremities Psychiatric Orientation: alert and oriented x 3 Testing Laboratory Results 12/18/19 05:07 12/18/19 05:07 Urine Color Dark Yellow 12/17/19 15:53 Urine Appearance Clear (Clear) 12/17/19 15:53 Urine pH 5.0 (4.5-7.5) 12/17/19 15:53 Ur Specific [place] 1.028 (1.000-1.030) 12/17/19 15:53 Urine Protein Negative (Negative) 12/17/19 15:53 Urine Glucose (UA) 3+ (Negative) H 12/17/19 15:53 Urine Ketones Negative (Negative) 12/17/19 15:53 Urine Nitrite Negative (Negative) 12/17/19 15:53 Ur Leukocyte Esterase Negative (Negative) 12/17/19 15:53 Urine WBC (Auto) 1-5 /hpf (0-5) 12/17/19 15:53 Urine RBC (Auto) 0-4 /hpf (0-4) 12/17/19 15:53 U Hyaline Cast (Auto) 1-5 /lpf (0-5) 12/17/19 15:53 U Epithel Cells (Auto) 5-10 /lpf (0-5) H 12/17/19 15:53 Urine Bacteria (Auto) Negative (Negative) 12/17/19 15:53 12/18/19 12/18/19 12/18/19 11:49 07:12 04:31 POC Glucose 76 91 119 H 12/18/19 03:59 POC Glucose 53 L*
[2019-12-18] MEDS ORDERED: PHENYLEPHRINE 100MCG/ML 5ML SYR ONE (12:47)
[2019-12-18] MEDS ORDERED: GLYCOPYRROLATE 0.2 MG/ML VIAL ONE (12:47)
[2019-12-18] MEDS ORDERED: ePHEDrine sulfate 50 MG/ML AMP IV PRN (13:21)
[2019-12-18] MEDS ORDERED: ONDANSETRON INJ 2 MG/ML 2 ML VIAL IV PRN (13:21)
[2019-12-18] MEDS ORDERED: ATROPINE SULFATE 0.1 MG/ML 10ML SYR IV PRN (13:21)
[2019-12-18] MEDS ORDERED: HYDROmorphone INJ 1 MG/ML SYRINGE IV PRN (13:21)
[2019-12-18] MEDS ORDERED: fentaNYL citrate 100 MCG/2 ML VIAL IV PRN (13:21)
--- NOTE | 2019-12-18 13:43 | Operative Report ---
PG Post Operative Report Pre & Post Diagnosis Operation Date: 12/18/19 10:55 Pre-Op Diagnosis: Right ureteral stone. Post-Op Diagnosis: Right ureteral stone. I identified the patient and participated in the time-out.: Yes Procedure Operation Date: 12/18/19 10:55 Actual Procedures p Right Cystoscopy, Ureteroscopy, Laser Lithotripsy; Stent Placement(Right) - Aiden Saunders MD Surgeon Mac Saunders MD [employer] Machine Tender none Estimated Blood Loss 0 Findings Consistent with Post-Op Diagnosis Specimens none Description of Procedure The patient was identified in the preoperative holding area, appropriate informed consents were reviewed and completed and the patient was transferred to the operative suite. Upon arrival, appropriate antibiotics and anesthesia were administered and the patient was placed in dorsal lithotomy position and prepped and draped in sterile fashion. To begin the case I passed a 22 [place] cystoscope with 30 degree lens. Inspection revealed a healthy-appearing urethra with a moderately enlarged prostate and healthy appearing bladder. I turned my attention to the right ureteral orifice and cannulated with a sensor wire and 5 [place] open-ended catheter. A stone was visualized on fluoroscopy in the mid ureter approximately at the level of the vessels. I was able to bypass this with the wire and immediately upon having the wire bypassed the stone I had a discharge of old/bloody urine. There was no purulence. After draining the system I withdrew the scope leaving the wire in place. I then reentered the bladder with a semirigid ureteroscope and guided into the distal right ureter. I advanced this up to the level of the stone, however the angulation in this area would not allow me to easily visualize the full stone. I exchanged the semirigid scope for a flexible scope after positioning a second wire into the kidney. With a flexible scope I was easily able to visualize the entire stone which was impacted into the ureter in this location. I passed a 365 m laser fiber to begin laser lithotripsy. I was able to disimpact the stone and fractured into numerous pieces. I was able to irrigate all of these pieces down the ureter below the vessels and the point of impaction. I then exchanged this flexible scope for a semirigid scope again and irrigated the remainder of these pieces out of the ureter. After confirming that the ureter was cleared I placed a 6 [place] by 26 cm looped ureteral stent with a string left attached to the distal aspect. I irrigated numerous stone pieces out of the bladder and passed these off the table as a specimen for chemical analysis. He was subsequently extubated and taken to the PACU in stable condition. There were no com plications. He tolerated the procedure well. I attest to the content of the Intraoperative Record and any orders documented therein. Any exceptions are noted below.
--- NOTE | 2019-12-18 14:08 | Fluoroscopy Report ---
FL KUB CLINICAL HISTORY: RT SIDE STENT PLACEMENTnephrocalcinosis COMPARISON STUDY: FLUOROSCOPY TIME: 11 seconds NUMBER OF FLUOROSCOPIC IMAGES: 1 FINDINGS: Image intensifier utilized for intraoperative lithotripsy and stent placement IMPRESSION: Image intensifier support for intraoperative lithotripsy and stent placement. ACT 112: Negative or not required by law. The above report was generated using voice recognition software. It may contain grammatical, syntax or spelling errors. Electronically signed by: Elder Pablo M.D. 12/18/2019 2:07 PM
--- NOTE | 2019-12-18 14:27 | Discharge Summary ---
Date of Service December 18, 2019 Admission HPI Per Admitting Provider 69 yo male presents with right sided groin pain, mild abdominal pain. Says that he is making urine, denies any hematuria, denies dysuria. Says he has a history of renal stones, feels like he passed one a few months ago. The pain is moderate, 5-6 out of 10 at worst. Started a few days ago. No nausea or vomiting. No fever/chills, no sweats, no chest pain, no dyspnea. The pain was relieved by Fentanyl IV in the ED. Nothing made the pain worse, it was fairly constant prior to the Fentanyl. In the ED his Cr was elevated from baseline. CT showed an obstructing right sided 8mm stone. WBC 11k. We are asked to admit for treatment of the ureteral stone. Principal Diagnosis right ureteral stone Discharge Exam Constitutional WD/WN, vitals as above Eyes PERRL, conjunctivae normal, anicteric sclerae ENMT external ear and nose normal, oropharynx normal Neck trachea midline, no thyromegaly Respiratory normal respiratory effort, lungs clear to auscultation Cardiovascular RRR, no murmur, no edema Gastrointestinal (Abdomen) normal bowel sounds, soft, nontender, no hepatosplenomegaly Musculoskeletal no cyanosis or clubbing, extremities motor strength 5/5 Skin no rashes, warm and dry Neurologic patellar DTR's 2+ bilat, sensation intact and PERRL, EOMI, accommodation nl, no face palsy, no dysarthria Psychiatric A+Ox3, euthymic affect Lymphatic no cervical or axillary lymphadenopathy Discharge Data Allergies Allergy/AdvReac Type Severity Reaction Status Date / Time Iodinated Contrast Media Allergy Intermediate Vomiting Verified 12/17/19 15:51 Consultations 12/17/19 18:26 ED Decision to Admit Stat 12/17/19 19:55 Consult Urology Routine Procedures Performed Operation Date: 12/18/19 10:55 Actual Procedures p Right Cystoscopy, Ureteroscopy, Laser Lithotripsy; Stent Placement(Right) - Aiden Saunders MD Ordered Studies 12/17/19 14:53 CT abd pelvis wo con Stat 12/18/19 09:28 FL KUB Routine FL fluoroscopy <1hr Routine Hospital Course (1) Right ureteral stone: s/p cystoscopy, ureteral stent, laser lithotripsy tolerated well home on Doxycycline to cover for possible UTI, oral pain control will follow up with Dr. Saunders in the office on Saturday for stent removal (2) Diabetes mellitus: resume home regimen on discharge (3) CKD (chronic kidney disease) stage 3, GFR 30-59 ml/min: Cr slightly higher than baseline with the obstruction should improve now that stent in place, lithotripsy received IV fluids over night plan for follow up with urology (4) Hypertension: stable this morning and after procedure Total Time Total Time Spent Total Time Spent (In Minutes): 32 minutes Total Time Includes: Examination of the Patient, Discharge Planning, Medication Reconciliation and Communication With Other Providers (discussion with Dr. Saunders) Discharge Plan Discharge Items Patient Disposition: Home - Self-Care Reason For Visit: KIDNEY STONE,SHERRI Discharge Diagnosis: kidney stones; SHERRI Condition on Discharge: Good Activity: Resume your previous activity Lifting: Gradually increase as tolerated Bathing: No limitations Sexual Activity: Wait until after follow-up appointment Exercise/Sports: Gradually increase as tolerated Driving/Machine Use: Resume 1 day after discharge Non-emergency contact: Urologist Call non-emergency contact if: you have any medication questions, your pain is worsening, you have a fever and your temperature is above 101.5 Follow-up/Referrals: PCP,NO [Primary Care Provider] - Diet: Carb Consistent or DM2 Addtl Attending Provider Instructions: Please take all medications as prescribed and keep all follow-ups as scheduled. Please call our office at [phone] with any questions, concerns or need to reschedule appointments for any reason. We are happy to assist you. While you have a ureteral stent in place: Some discomfort is normal. Certain movements may trigger pain or a feeling that you need to urinate. You may also feel mild soreness or pressure before or during urination. These symptoms should go away a few days after the stent is removed. Your urine may be slightly pink or red. This is due to bleeding caused by minor irritation from the stent. This may happen on and off while you have the stent, it is not harmful and is to be expected. Medication to help minimize discomfort or bladder spasms, or to prevent infection may be prescribed. Take this as directed. Drink plenty of fluids to help flush out your urinary tract. If you go home with a catheter, wash with soapy water and a fresh washcloth twice daily. We recommend mild bar soap such as Dial or Dove. How long will you need a stent? An appointment should already be made for you for stent removal, unless directed otherwise. The stent is often taken out after the blockage in the ureter is treated or the ureter has healed. This may take 1-2 weeks, or longer. If a stent is needed for a longer period of time, it may need to be exchanged every few months. Likely prior to your followup appointment you will be asked to get an X-ray, please complete this the night before or morning of your appointment. When to call [facility] [place] Urology at [phone]: Your urine contains heavy blood clots You are constantly leaking urine Fever of 101F or higher, chills, nausea, or vomiting Your pain is not relieved with medication The end of the stent comes out of your urethra DR. SAUNDERS'S OFFICE HAS SET UP A FOLLOW UP APPOINTMENT FOR SATURDAY AND DISCUSSED THE TIME AND LOCATION WITH YOUR . Pending Studies at Discharge: Yes Studies:: chemical analysis of stones Stand-Alone Forms: My [facility] [place], Smoking Cessation Medications and DC Order Prescriptions: New doxycycline hyclate 100 mg capsule 100 mg PO DAILY Qty: 6 RF: 0 hydrocodone-acetaminophen 5-325 mg tablet 1 tab PO Q6H PRN (Reason: pain) Qty: 20 RF: 0 Continued allopurinol 100 mg tablet 100 mg PO DAILY RF: 0 alogliptin 12.5 mg tablet 12.5 mg PO DAILY RF: 0 clotrimazole 1 % cream 1 appln TOP QID RF: 0 empagliflozin 25 mg tablet 25 mg PO DAILY RF: 0 glipizide 5 mg tablet 5 mg PO QPM RF: 0 glucose 4 gram tablet,chewable 16 gm PO UD PRN (Reason: hypoglycemia) RF: 0 insulin glargine 100 unit/mL solution See Rx Instructions SQ DAILY RF: 0 lisinopril 10 mg tablet 10 mg PO DAILY RF: 0 metformin 1,000 mg tablet 1,000 mg PO BID RF: 0 simvastatin 80 mg tablet 40 mg PO QPM RF: 0 aspirin [Adult Low Dose Aspirin] 81 mg tablet,delayed release (DR/EC) 81 mg PO DAILY RF: 0 albuterol sulfate 90 mcg/actuation HFA aerosol inhaler 1 - 2 puffs INH Q6H PRN (Reason: shortness of breath or wheezing) RF: 0 Discharge Orders: Discharge Order (Routine); Ordered 12/18/19 Ordered By: Russ Ortiz Admission Data Admit Date/Time: 12/17/19 18:35 Attending Provider: Russ Ortiz Admit Provider: Russ Ortiz Primary Care Provider: PCP,NO Other Providers: Russ Ortiz ; Aiden Saunders Coding Level of Care Code D/C Day Management >30 mins Diagnoses Right ureteral stone N20.1 Diabetes mellitus E11.9 CKD (chronic kidney disease) stage 3, GFR 30-59 ml/min N18.3 Hypertension I10
--- NOTE | 2019-12-18 14:41 | Electrocardiogram Report ---
Test Reason : Blood Pressure : / mmHG Vent. Rate : 069 BPM Atrial Rate : 069 BPM P-R Int : 170 ms QRS Dur : 094 ms QT Int : 414 ms P-R-T Axes : 046 -41 022 degrees QTc Int : 443 ms Poor data quality, interpretation may be adversely affected Normal sinus rhythm Left axis deviation Low voltage QRS Abnormal ECG When compared with ECG of 01-JUL-2014 09:18, Sinus rhythm has replaced Ectopic atrial rhythm Confirmed by Kodi Curry ([id number]) on 12/18/2019 2:41:18 PM Referred By: REFERRED SELF Confirmed By:Kodi Curry
--- NOTE | 2019-12-18 15:03 | Anesthesiology Progress Note ---
Date of Service December 18, 2019 Anesthesia Post Procedure Vital Signs Vital Signs: Temp Pulse Pulse Pulse Pulse Resp BP 12/18/19 14:51 36.6 C 60 18 12/18/19 14:10 36.5 C 62 14 12/18/19 14:00 66 17 12/18/19 13:50 66 14 12/18/19 13:40 78 15 12/18/19 13:33 36.1 C L 83 14 12/18/19 12:03 36.8 C 62 57 L 18 12/18/19 07:20 36.7 C 55 L 18 12/17/19 22:50 37.1 C 53 L 16 12/17/19 19:50 36.9 C 65 16 12/17/19 19:30 60 19 135/69 12/17/19 19:00 63 20 137/69 12/17/19 18:00 17 12/17/19 16:46 63 22 BP Pulse Ox 12/18/19 14:51 124/74 98 12/18/19 14:10 121/73 95 12/18/19 14:00 108/72 95 12/18/19 13:50 115/72 94 12/18/19 13:40 116/80 94 12/18/19 13:33 118/66 95 12/18/19 12:03 122/99 96 12/18/19 07:20 130/72 97 12/17/19 22:50 126/70 95 12/17/19 19:50 157/69 H 95 12/17/19 19:30 95 12/17/19 19:00 96 12/17/19 18:00 142/71 H 94 12/17/19 16:46 137/68 94 Pain Intensity Right Abdomen: Pain Intensity: 1 Transfer of Care Handoff Completed per policy Notes Mental Status: alert / awake / arousable and participated in evaluation Patient Amnestic to Procedure: Yes Nausea / Vomiting: adequately controlled Pain: adequately controlled Airway Patency, RR, SpO2: stable & adequate BP & HR: stable & adequate Hydration State: stable & adequate Anesthetic Complications: no major complications apparent and Pt Satisfied with anesthetic care
[2019-12-18] MEDS: INSULIN GLARGINE SOLOSTAR 100 UNITS/ML 3 ML PEN SC SCH (16:58)
[2019-12-23 13:29] LABS: Calculus Nidus Not Observed; Component 2 DNR; Source RIGHT RENAL STONE
== END 2019-12-18 18:42 | disposition home or self-care (01) | DRG 660 ==
LOC: ED 14:46 → 3E 18:35

== ENCOUNTER 2021-10-26 05:12 | Inpatient (IN) ==
--- NOTE | 2021-10-20 11:54 | Anesthesiology Consultation ---
Date of Service October 20, 2021 Assessment & Plan (1) Encounter for pre-operative examination: Chart Review Chart Review: Acceptable Risk for Surgery and Patient NOT seen in Pre Admission Testing Consults Requested none History Surgery Operation Date: 10/26/21 08:20 Proposed Procedures p Laparoscopic Assisted Colon Resection fo Cancer of the Colon - Singh Ambrose MD, FACS Height/Weight Height: 5 ft 9 in Weight: 104.326 kg Allergies Allergy/AdvReac Type Severity Reaction Status Date / Time Iodinated Contrast Media Allergy Unknown Vomiting Verified 10/19/21 15:46 Medications Home Medications Medication Instructions Recorded Confirmed Last Taken albuterol sulfate 90 mcg/actuation 1 puffs INH TID PRN gm 06/24/19 10/19/21 12/17/19 aerosol inhaler allopurinol 100 mg tablet 100 mg PO QAM 06/24/19 10/19/21 08/07/20 aspirin 81 mg tablet,delayed 81 mg PO QAM 06/24/19 10/19/21 08/07/20 release (Adult Low Dose Aspirin) insulin glargine 100 unit/mL 60 unit SQ QAM 06/24/19 10/19/21 08/08/20 04:15 subcutaneous solution lisinopril 10 mg tablet 10 mg PO QAM 06/24/19 10/19/21 08/07/20 metformin 1,000 mg tablet 1,000 mg PO BID 06/24/19 10/19/21 08/07/20 insulin glargine 100 unit/mL 36 unit SUBCUT PM 10/24/20 10/19/21 Unknown subcutaneous solution alogliptin 12.5 mg tablet 12.5 mg PO QAM 09/27/21 10/19/21 Unknown cholecalciferol (vitamin D3) 25 25 mcg PO QAM 09/27/21 10/19/21 Unknown mcg (1,000 unit) capsule docusate sodium 100 mg capsule 100 mg PO QAM cap 09/27/21 10/19/21 Unknown glucose 4 gram chewable tablet 4 g PO Q15M PRN 09/27/21 10/19/21 Unknown triamcinolone acetonide 0.1 % 1 applic TOPICAL BID #454 g 09/27/21 10/19/21 Unknown topical cream metronidazole 500 mg tablet 500 mg PO .COMPLEX #3 tab 10/11/21 10/19/21 Unknown neomycin 500 mg tablet 1 g PO .COMPLEX #6 tab 10/11/21 10/19/21 Unknown empagliflozin 25 mg tablet 25 mg PO QAM 10/19/21 10/19/21 Unknown mirtazapine 15 mg tablet 15 mg PO HS 10/19/21 10/19/21 Unknown simvastatin 80 mg tablet 40 mg PO HS 10/19/21 10/19/21 Unknown Past Medical History Medical History Anemia BMI 34.0-34.9,adult Cancer COLON-REASON FOR SURGERY Chronic obstructive pulmonary disease LAST INHALER USE LAST WEEK CKD (chronic kidney disease) stage 3, GFR 30-59 ml/min Diabetes mellitus Dyslipidemia History of kidney stones History of pulmonary embolus (PE) REMOTE HX / LEG IN A A CAST - NO PROBLEMS SINCE Hypertension Neuropathy Obesity Sleep apnea CPAP/DOESN'T USE SOB (shortness of breath) on exertion 1 FLIGHT-"OUT OF SHAPE" Past Family History Family History Grandmother Diabetes Mother Breast cancer Sister Breast cancer Past Surgical History Surgical History History of cholecystectomy History of colonoscopy 2020 History of total right knee replacement Hx of foot surgery LEFT HEEL Hx of repair of rotator cuff R&L Status post laser lithotripsy of ureteral calculus 12/18/19 Social History Smoking Status: Former smoker Do You Dip or Chew Tobacco: No Smoking End Date: QUIT IN HIS 50'S Hx Alcohol Use: No Hx Substance Use: No substance use type: does not use Testing Electrocardiogram Date: 08/24/21 Findings: + NSR @ (75), + LVH, + LBBB (left anterior fascicle block) and + RBBB Echocardiogram Date: 09/15/21 EF: 55-59 Other Findings: + LVH (mild concentric) mild TR
[2021-10-26] MEDS ORDERED: LR 15ML/HR IV SCH (06:00)
--- NOTE | 2021-10-26 06:21 | History & Physical Bridge Note ---
Date of Service October 26, 2021 History & Physical Bridge Note I have examined the patient, reviewed the History & Physical and in the interval since the performance of the History & Physical I have noted the following changes of clinical significance: no changes noted Significant other at bedside all question answered Early this morning his blood sugar was low he took some gian rafa and some glucose tabs anesthesia will evaluate the recording proceeding with surgery
[2021-10-26] MEDS ORDERED: CISATRACURIUM BESYLATE IV SOLN 2 MG/ML 10 ML VIAL IV ONE ×3 (06:45→11:13)
[2021-10-26] MEDS ORDERED: PROPOFOL IV EMULSION 10 MG/ML 100 ML VIAL IV ONE (06:46)
[2021-10-26] MEDS ORDERED: SUCCINYLCHOLINE 100MG/5ML SYR IV ONE (06:47)
[2021-10-26] MEDS ORDERED: fentaNYL citrate 100 MCG/2 ML VIAL ONE ×3 (06:47→08:20)
[2021-10-26] MEDS ORDERED: MIDAZOLAM HCL 1 MG/ML 2ML VIAL ONE (06:48)
[2021-10-26] MEDS ORDERED: BUPIVACAINE 0.5 % 5 MG/1 ML MPF 30ML VIAL ONE (07:09)
[2021-10-26] MEDS ORDERED: cefOXitin 2,000 MG in DEXTROSE 5% 50 ML IV STA (08:02)
[2021-10-26] MEDS ORDERED: GLYCOPYRROLATE 0.2 MG/ML VIAL ONE (08:32)
[2021-10-26] MEDS ORDERED: ATROPINE SULFATE 0.1 MG/ML 10ML SYR IV PRN ×2 (08:42→12:54)
[2021-10-26] MEDS ORDERED: fentaNYL citrate 100 MCG/2 ML VIAL IV PRN (08:42)
[2021-10-26] MEDS ORDERED: ePHEDrine sulfate 50 MG/ML AMP IV PRN ×2 (08:42→12:54)
[2021-10-26] MEDS ORDERED: PROMETHAZINE HCL 12.5 MG in SODIUM CHLORIDE 0.9% 50 ML IV PRN (08:42)
[2021-10-26] MEDS ORDERED: NALOXONE HCL 0.4 MG/1 ML VIAL/CARP IV PRN ×2 (08:42→17:55)
[2021-10-26] MEDS ORDERED: ONDANSETRON INJ 2 MG/ML 2 ML VIAL IV PRN (08:42)
[2021-10-26] MEDS ORDERED: LABETALOL HCL IV 5 MG/ML 20ML IV PRN (08:42)
[2021-10-26] MEDS ORDERED: FLUMAZENIL 0.1 MG/1 ML 10 ML VIAL IV PRN (08:42)
[2021-10-26] MEDS ORDERED: PHENYLEPHRINE 100MCG/ML 5ML SYR ONE (08:55)
[2021-10-26] MEDS ORDERED: PHENYLEPHRINE HCL 10 MG/ML VIAL ONE (08:57)
[2021-10-26] MEDS ORDERED: GELATIN SPONGE 12-7MM ONE (10:45)
[2021-10-26] MEDS ORDERED: THROMBIN FOR SOLN 20000 UNIT KIT ONE (10:45)
[2021-10-26] MEDS ORDERED: GELATIN SPONGE SZ 100 ONE (10:47)
[2021-10-26] MEDS ORDERED: ePHEDrine sulfate 50 MG/ML SYR ONE (11:03)
--- NOTE | 2021-10-26 11:11 | Post Operative Brief Note ---
PG Immediate Post Op with CF Date of Surgery October 26, 2021 Pre & Post Diagnosis Operation Date: 10/26/21 07:00 Pre-Op Diagnosis: Colon Cancer Post-Op Diagnosis: Colon Cancer, Portal hypertension, Incarcerated umbilical hernia I identified the patient and participated in the time-out.: Yes Procedure Operation Date: 10/26/21 07:00 Actual Procedures p Laparoscopic Assisted Colon Resection, Umbilical Hernia Repair(Not Applicable) - Singh Ambrose MD, FACS Surgeon Singh Ambrose MD, FACS Stave Planer Tender b jaclyn murdock Estimated Blood Loss 500 Findings Consistent with Post-Op Diagnosis Specimens Specimen Description: Culture#1 urine A. Omentum and right colon: really long silk suture in middle colic artery, shorter silk suture in right colic artery B. Incarcerated umbilical hernia contents Drains Dick Catheter and Tavo Drain
[2021-10-26] MEDS ORDERED: NEOSTIGMINE METHYLSULFATE 1 MG/ML 10ML VIAL ONE (11:14)
--- NOTE | 2021-10-26 11:40 | Operative Report ---
Post Operative Report Pre & Post Diagnosis Operation Date: 10/26/21 07:00 Pre-Op Diagnosis: Colon Cancer Post-Op Diagnosis: Colon Cancer, Portal hypertension, Incarcerated umbilical hernia I identified the patient and participated in the time-out.: Yes Procedure Operation Date: 10/26/21 07:00 Actual Procedures p Laparoscopic Assisted Right Colon Resection, Umbilical Hernia Repair(Not Applicable) - Singh Ambrose MD, FACS The patient was brought into the operating theater general endotracheal anesthesia antibiotics on board the abdomen was prepped Betadine scrub and solution properly draped a timeout was had patient was identified this point we made a small incision supraumbilically sufficient to place a Veress needle followed by 5 mm trocar reinsufflated point of entry no injury identified the patient has significant amount of omentum the abdominal wall was actually thinning itself we visualized the liver able to look at the anterior abdominal wall circumferentially looking for some possibility of a tattoo sidney sometimes can be seen to delineate the area where the specimen should be this point I was unable to identify anything specific in this approach therefore I placed a 5 Benoit epigastric port with preemptive local analgesic and was able to rotate the patient to the left lateral position and was able to move small bowel away from the ascending colon which I could not see any tattoo went to the hepatic flexure and similarly I was not able to identify any tattoos in that area of note as we went across from the hepatic fracture distally the patient omentum was strictly adherent to the that area in the liver and noted that patient obviously has cirrhosis. With macronodular sclerosis. At this point the camera was then turned to the left lower quadrant would not see anything and nothing specific place another 5 mm port in left upper quadrant went around towards the splenic area we did not appreciate the colon underneath the spleen but there was no tattooing appreciated and similarly all the way down to the omentum overlapping the transverse colon could not see the colon itself could not see any tattoo at this point I elected to make an incision so we be able to palpate it we noted that by the actuarial associate report that he had to be an idiopathic flexure. Made an incision above the umbilicus approximately 10 cm or so so I can place my hand in there and hopefully will be able to palpate the lesion and we made the incision we entered the preperitoneal area and found the falciform ligament significantly dilated with venous plexus down to the umbilical area where the patient had a small incarcerated umbilical hernia we divided the falciform ligament a lot ligated and even touching it moderate amoun t of oozing was appreciated indicative that the patient most likely has some portal hypertension. We then a large incision sufficient enough that then I was able to rotate the patient again to the left and using traction I could visualize the ascending colon circumferentially without any obvious idea or visualization of the tattoo we were then were able to see the hepatic flexure again free of any tattooing and as we then moved more medially at the omentum that was encased over the colon to free that up and then I could see it approximately what I thought was from 10 cm or more lateral to the middle colonic vessels on the right we were able to see the tattoo sidney very limited and it actually was on the mesenteric surface of the colon. At this point I inserted my hand further down anchors actually be able to feel what appeared to be a lesion in that area by palpating it. We then a large incision superficially and after discussed got into the white line of Toldt on the right and started mobilizing the colon but significant retroperitoneal oozing was appreciated again indicative with significant for hypertension probably we mobilized the terminal ileum and the colon on the right cecum sufficiently lap to bring it out towards outside the wound we did free the omentum which was overlapping the transverse colon. We gingerly took the dissection out from the retroperitoneal area especially around the duodenal area making sure not to enter any of those prominent veins are usually found in that area the duodenum was swept out of the field we went and were able to mobilize the hepatic flexure and right colon into the wound. We were to the right of the middle colic. We then scored the mesentery from approximately 6 inches also from the ileocecal valve by first dividing the terminal ileum with a RICKY scoring the mesentery took down to the root of the mesentery ligating at times with 2-0 silk a suture ligature of 2-0 silk we took small bites it consistently to make sure that hemostasis was controlled as much as possible. We then divided the right colic area and marked with a short silk suture carried our dissection up towards the middle colic where we were able to identified and stayed to the left of the middle colic taken the middle colic down at its base doubly ligated with suture ligature of 2-0 silk and 2-0 silk plain specimen was then removed placed in container. We left the long suture on the middle colic the markers and a shorter silk on the right colic. The retroperitoneal area with gentle generalized oozing was controlled mostly with the ligation but still had a moderate amount of oozing in fact at this point we may have loss possibly 500 cc of blood. The 2 staple line the one on the colon which we took just to the left of the middle colic and the small bowel at the terminal ileum mesentery which we had marked and scored and brought back together to avoid any opening injury to and the staple line on each 1 was inverted with 3-0 silk suture when we did anastomosis side to side using 3-0 silk outer layer 3-0 chromic inner layer reinforcing it. Checked the anastomosis accommodate 2 fingers. The retroperitoneal area then irrigated copiously again. There was minor oozing appreciated but nothing significant I did place some Gelfoam apically towards the pradeep hepatis area although we got away and had very little extraordinary bleeding in that area and use topical problem to inject the retroperitoneal we then placed the NG tube anesthesia were able to palpate it is about 55 cm into the stomach. This point we then closed the wound first year again extensively abdomen Needle and sponge count correct we freed up the incarcerated omental tissue. We then closed the abdominal wall using #1 PDS starting 1 cephalad caudad and tied in the middle 5/8 of an inch Hayden in the subcu jamey for skin edges dressing was applied procedure was tolerated well by the patient estimate blood loss 500 cc AddendumB Za murdock was present throughout the procedure and helped the retraction exposure and wound closure Addendum called Liss at [phone] got recorder apparently from her son Cedric and left message that everything done well Surgeon Singh Ambrose MD, FACS Technology Integration Specialist manuel murdock Estimated Blood Loss 500 Findings Consistent with Post-Op Diagnosis Cirrhosis of the liver grossly portal hypertension carcinoma the colon incarcerated umbilical hernia Specimens Incarcerated omental tissue extended right colonic resection Drains 5/8 of an inch Tavo subcu Indications Colon carcinoma Description of Procedure merda I attest to the content of the Intraoperative Record and any orders documented therein. Any exceptions are noted below.
[2021-10-26] MEDS: HYDROmorphone INJ 1 MG/ML SYRINGE IV PRN ×7 (11:45→14:41)
[2021-10-26 12:09] LABS: Hemoglobin 10.9 g/dL (14.0-18.0)
[2021-10-26 12:24] LABS: INR 1.1 (0.9-1.1); Partial Thromboplastin Time 26.9 Seconds (21.0-31.0); Prothrombin Time 11.3 Seconds (9.0-12.0)
--- NOTE | 2021-10-26 12:56 | Anesthesiology Progress Note ---
Date of Service October 26, 2021 Anesthesia Post Procedure Vital Signs Vital Signs: Temp Pulse Pulse Resp BP Pulse Ox 10/26/21 12:45 69 15 115/61 92 10/26/21 12:30 36.1 C L 67 15 113/60 93 10/26/21 12:20 70 16 108/56 L 93 10/26/21 12:10 66 16 107/58 L 95 10/26/21 12:00 70 17 114/58 L 95 10/26/21 11:50 63 20 113/53 L 96 10/26/21 11:40 70 17 110/59 L 95 10/26/21 11:34 36.2 C L 82 15 110/57 L 93 10/26/21 05:38 36.6 C 68 18 128/70 96 Pain Intensity Abdomen: Pain Intensity: 4 Transfer of Care Handoff Completed per policy Notes Mental Status: alert / awake / arousable Patient Amnestic to Procedure: Yes Nausea / Vomiting: adequately controlled Pain: adequately controlled Airway Patency, RR, SpO2: stable & adequate BP & HR: stable & adequate Hydration State: stable & adequate Anesthetic Complications: no major complications apparent
[2021-10-26] MEDS ORDERED: ALBUTEROL HFA 8 GM INHALER INH PRN (17:55)
[2021-10-26] MEDS ORDERED: DEXTROSE 50% 50 ML SYRINGE IV PRN (17:55)
[2021-10-26] MEDS ORDERED: GLUCOSE 10 TABS/TUBE PO PRN (17:55)
[2021-10-26] MEDS ORDERED: GLUCAGON FOR INJ 1 MG VIAL SQ PRN (17:55)
[2021-10-26] MEDS ORDERED: GLUCOSE 40% GEL 15 GM TUBE PO PRN (17:55)
[2021-10-26] MEDS: INSULIN ASPART PER UNIT SC SCH ×2 (18:31→21:09)
[2021-10-26] MEDS: SODIUM CHLORIDE 0.9% 1000ML 1,000 ML IV SCH ×3 (18:38→19:11)
[2021-10-26] MEDS: MoRPHine SULFATE PCA 30 MG/30 ML IV PRN (18:39)
[2021-10-26 19:28] LABS: Creatinine Clr Calc Pharmacy 51.7 ml/min; Est GFR (African American) 51.9 ml/min; Est GFR (Non-African American) 44.8 ml/min
[2021-10-26] MEDS: ACETAMINOPHEN 1,000 MG/100 ML VIAL IV SCH (19:39)
[2021-10-26] MEDS: cefOXitin 2,000 MG in DEXTROSE 5% 50 ML IV SCH (19:59)
[2021-10-26] MEDS: HEPARIN SOD 5,000 UNIT/0.5 ML VIAL SQ SCH (21:09)
--- NOTE | 2021-10-26 21:57 | Hospitalist Consultation ---
Date of Consultation October 26, 2021 Assessment & Plan (1) Colon cancer: Final Assessment and Recommendations as follows : Colon cancer Status post surgery Clinically well HTN, stable mild aortic stenosis, conduction system disease, preop eval done outpatient by [facility] Cardiology DM 2 insulin requiring, unknown baseline control, no recent hemoglobin A1c on file CRI, creatinine at baseline Postop anemia history provoked PE/DVT as per records past tobacco abuse Postop management as per surgery Initiate lisinopril if a.m. creatinine stable Cautious IV hydration given history of aortic stenosis Basal insulin adjusted for n.p.o. status, ISS BG goal 1 10-1 40, check hemogl obin A1c DVT prophylaxis. Heparin subcu as per postop orders Thank you very much for this consultation. Dr. Prajapati will follow patient's progress. Text document was generated using [employer] voice recognition software. It may contain grammatical or spelling errors. Kindly contact undersigned for clarification of any documentation item in question. History of Present Illness Reason for Consultation: Medical management Requesting Physician: Dr. Ambrose/Rocky Mendenhall PA-C Attending Physician: Singh Ambrose MD, FACS History of Present Illness PCP : CHEPE Perez from the [place] History obtained from patient and records. Medical history significant for HTN, mild aortic stenosis, conduction system disease, DM 2 insulin requiring, CRI (baseline crea 1.6-1.7), chronic anemia (baseline hemoglobin 13), colon cancer, history provoked PE/DVT as per records, anxiety/mood disorder, past tobacco abuse. Last confinement December 2019 for R renal colic. Patient underwent laparoscopic colon resection today for biopsy proven colon carcinoma at the hepatic flexure. Post procedure, abdominal pain controlled by [employer] pump. Patient denies chest pain or S OB. 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 Allergies Allergy/AdvReac Type Severity Reaction Status Date / Time Iodinated Contrast Media Allergy Unknown Vomiting Verified 10/26/21 05:41 Home Medications Medication Instructions Recorded Confirmed Type albuterol sulfate 90 mcg/actuation 1 puffs INH TID PRN gm 06/24/19 10/26/21 History aerosol inhaler allopurinol 100 mg tablet 100 mg PO QAM 06/24/19 10/26/21 History aspirin 81 mg tablet,delayed 81 mg PO QAM 06/24/19 10/26/21 History release (Adult Low Dose Aspirin) insulin glargine 100 unit/mL 60 unit SQ QAM 06/24/19 10/26/21 History subcutaneous solution lisinopril 10 mg tablet 10 mg PO QAM 06/24/19 10/26/21 History metformin 1,000 mg tablet 1,000 mg PO BID 06/24/19 10/26/21 History insulin glargine 100 unit/mL 36 unit SUBCUT PM 10/24/20 10/26/21 History subcutaneous solution alogliptin 12.5 mg tablet 12.5 mg PO QAM 09/27/21 10/26/21 History cholecalciferol (vitamin D3) 25 25 mcg PO QAM 09/27/21 10/26/21 History mcg (1,000 unit) capsule docusate sodium 100 mg capsule 100 mg PO QAM cap 09/27/21 10/26/21 History glucose 4 gram chewable tablet 4 g PO Q15M PRN 09/27/21 10/26/21 History triamcinolone acetonide 0.1 % 1 applic TOPICAL BID #454 g 09/27/21 10/26/21 Rx topical cream metronidazole 500 mg tablet 500 mg PO .COMPLEX #3 tab 10/11/21 10/26/21 Rx neomycin 500 mg tablet 1 g PO .COMPLEX #6 tab 10/11/21 10/26/21 Rx empagliflozin 25 mg tablet 25 mg PO QAM 10/19/21 10/26/21 History mirtazapine 15 mg tablet 15 mg PO HS 10/19/21 10/26/21 History simvastatin 80 mg tablet 40 mg PO HS 10/19/21 10/26/21 History Patient History Medical History Anemia BMI 34.0-34.9,adult Cancer COLON-REASON FOR SURGERY Chronic obstructive pulmonary disease LAST INHALER USE LAST WEEK CKD (chronic kidney disease) stage 3, GFR 30-59 ml/min Diabetes mellitus Dyslipidemia History of kidney stones History of pulmonary embolus (PE) REMOTE HX / LEG IN A A CAST - NO PROBLEMS SINCE Hypertension Neuropathy Obesity Sleep apnea CPAP/DOESN'T USE SOB (shortness of breath) on exertion 1 FLIGHT-"OUT OF SHAPE" Surgical History (Updated 10/27/21 @ 08:38 by Kelly Bragg, HOWIE) History of cholecystectomy History of colonoscopy 2020 History of total right knee replacement Hx of foot surgery LEFT HEEL Hx of repair of rotator cuff R&L S/P colon resection (10/26/21) Laparoscopic Assisted Right Colon Resection, Umbilical Hernia Repair- Singh Ambrose MD, FACS 10/26/2021 Status post laser lithotripsy of ureteral calculus 12/18/19 Family History Grandmother Diabetes Mother Breast cancer Sister Breast cancer Social History Smoking Status: Former smoker packs per day: 1; Years Smoked: 20; Smoking End Date: QUIT IN HIS 50'S; Second Hand Exposure: No; Do You Dip or Chew Tobacco: No; Hx Alcohol Use: No Hx Substance Use: No Preferred Language: Chadian Communication Ability: Effective Show Host Required: No Beliefs That Will Affect Care: None marital status: Current Living Situation: Spouse current occupational status: retired How many Children do You have: 1 Other Information That Helps Us Care for You: No Feels Safe at Home: Yes Safety Concerns: Feels Safe At This Time during the past year weight has: remained stable Assistive Devices: Cane, CPAP and Walker Review of Systems Review of Systems: As per HPI, all 10 systems reviewed, all other ROS negative Physical Exam Physical Exam: GENERAL: Comfortable, pleasant, obese, no respiratory distress SKIN: Pallor,, warm HEENT: Pale palpebral conjunctivae, no ptosis, dry buccal mucosa, NGT in place NECK : Supple, short neck, no tenderness CHEST : Decreased breath sounds,, no tenderness HEART : RRR, no obvious murmurs ABDOMEN: Some distention, no overt tenderness EXTREMITIES : Minimal LE swelling, no LE tenderness, no other conspicuous deformities noted NEUROLOGIC : Coherent, no facial asymmetry, no other gross focality Results & Data Results & Data ([facility]) Vital Signs (Past 12 Hours) Vital Signs Temp Pulse Resp BP BP Pulse Ox 10/26/21 20:06 37.2 C 84 19 114/66 95 10/26/21 18:00 37.2 C 89 22 115/63 96 10/26/21 17:30 37.2 C 82 18 107/65 93 10/26/21 16:45 36.6 C 81 21 114/59 L 93 10/26/21 16:15 80 19 98/59 L 93 10/26/21 15:45 81 14 103/58 L 93 10/26/21 15:15 82 14 114/57 L 93 10/26/21 15:00 84 18 108/67 93 10/26/21 14:45 84 22 113/61 93 10/26/21 14:30 85 18 101/63 94 10/26/21 14:15 85 18 100/55 L 93 10/26/21 14:00 78 17 114/58 L 93 10/26/21 13:45 73 14 111/58 L 93 10/26/21 13:30 74 16 122/62 93 10/26/21 13:15 72 18 123/59 L 92 10/26/21 13:00 68 17 113/57 L 92 10/26/21 12:45 69 15 115/61 92 10/26/21 12:30 36.1 C L 67 15 113/60 93 10/26/21 12:20 70 16 108/56 L 93 10/26/21 12:10 66 16 107/58 L 95 10/26/21 12:00 70 17 114/58 L 95 10/26/21 11:50 63 20 113/53 L 96 10/26/21 11:40 70 17 110/59 L 95 10/26/21 11:34 36.2 C L 82 15 110/57 L 93 Laboratory Results Laboratory Results Hgb 10.9 g/dL (14.0-18.0) L 10/26/21 11:59 Hct 34.0 % (42-52) L 10/26/21 11:59 PT 11.3 Seconds (9.0-12.0) 10/26/21 11:59 INR 1.1 (0.9-1.1) 10/26/21 11:59 APTT 26.9 Seconds (21.0-31.0) 10/26/21 11:59 PTT Ratio 1.0 10/26/21 11:59 Creatinine 1.53 mg/dl (0.6-1.4) H 10/26/21 18:48 Est Cr Clr Drug Dosing 51.7 ml/min 10/26/21 18:48 Est GFR ( Amer) 51.9 ml/min 10/26/21 18:48 Est GFR (Non-Af Amer) 44.8 ml/min 10/26/21 18:48 POC Glucose 185 mg/dl (70-99) H 10/26/21 20:18 SARS-CoV-2, RNA, NAAT NEGATIVE (NEGATIVE) 10/26/21 05:25 Blood Type A Positive 10/26/21 05:35 Antibody Screen NEGATIVE 10/26/21 05:35
[2021-10-27] MEDS: cefOXitin 2,000 MG in DEXTROSE 5% 50 ML IV SCH ×3 (00:48→12:43)
[2021-10-27] MEDS: SODIUM CHLORIDE 0.9% 1000ML 1,000 ML IV SCH ×3 (01:50→17:36)
[2021-10-27] MEDS: MoRPHine SULFATE PCA 30 MG/30 ML IV PRN (04:08)
[2021-10-27] MEDS: ACETAMINOPHEN 1,000 MG/100 ML VIAL IV SCH ×3 (05:35→21:44)
[2021-10-27] MEDS: HEPARIN SOD 5,000 UNIT/0.5 ML VIAL SQ SCH ×3 (05:48→21:44)
[2021-10-27] MEDS ORDERED: Nursing to Pharmacy Communication SCH (06:45)
[2021-10-27 07:06] LABS: Basophils # (auto) 0.02 K/uL (0-0.2); Basophils % (auto) 0.2 %; Eosinophils # (auto) 0.07 K/uL (0-0.5); Eosinophils % (auto) 0.6 %; Hematocrit (blood only) 34.6 % (42-52); Hemoglobin 10.7 g/dL (14.0-18.0); Immature Granulocytes # (auto) 0.03 K/uL (0.00-0.02); Immature Granulocytes % (auto) 0.2 %; Lymphocytes # (auto) 1.04 K/uL (1.2-3.4); Lymphocytes % (auto) 8.4 %; Mean Corpuscular Hgb Conc 30.9 g/dL (32-36); Mean Corpuscular Volume 87.2 fL (80-100); Mean Platelet Volume 9.6 fL (7.4-10.4); Monocytes # (auto) 0.82 K/uL (0.11-0.59); Monocytes % (auto) 6.6 %; Neutrophils # (auto) 10.47 K/uL (1.4-6.5); Platelet Count 189 K/uL (130-400); RDW Coefficient of Variation 16.5 % (11.5-14.5); RDW Standard Deviation 52.4 fL (36.4-46.3); Red Blood Count 3.97 M/uL (4.7-6.1); White Blood Count 12.45 K/uL (4.8-10.8)
[2021-10-27 07:44] LABS: BUN Creatinine Ratio 13.1 (10-20); Calcium 7.5 mg/dl (8.5-10.1); Creatinine Clr Calc Pharmacy 44.8 ml/min; Est GFR (African American) 43.8 ml/min; Est GFR (Non-African American) 37.8 ml/min
[2021-10-27 08:05] LABS: Estimated Average Glucose 203 mg/dl; Hemoglobin A1C 8.7 % (4.5-5.6)
[2021-10-27] MEDS ORDERED: SODIUM CHLORIDE 0.9% 1000ML 500 ML IV ONE (08:16)
--- NOTE | 2021-10-27 08:29 | Surgery Progress Note ---
Date of Service October 27, 2021 Assessment & Plan (1) Colon cancer: Plan: Intraoperative findings was discussed with the patient including the discovery of cirrhosis or portal hypertension patient stated he did drink heavily in the past Hemoglobin noted slightly elevated from yesterday indicating an element concentration also indicated with the elevated creatinine chronic renal insufficiency At this point will give him some chips and sips given 500 cc bolus over 3 hours [facility] surgeon covering this weekend Admission and Anticipated Discharge Date Admission Date: October 26, 2021 Subjective Patient's main complaint is that he is thirsty He has not been out of bed yet Physical Exam Physical Exam: Alert coherent no acute distress NG tube in place minimal drainage Oral mucosa dry The abdomen distended as preop the patient does have a very prominent girth The dressing was changed minimal drainage Tavo drain intact incision without any redness No pedal edema Lungs audibly clear Results & Data ([facility]) Vital Signs (Past 12 Hours) Vital Signs Temp Pulse Pulse Resp BP Pulse Ox 10/27/21 07:54 36.7 C 79 17 107/58 L 92 10/27/21 04:19 36.8 C 83 20 128/68 94 10/27/21 00:32 79 10/26/21 22:50 37.0 C 83 19 118/67 93 PG Care Time/CCT Total # of Minutes Spent Total Time Spent with Patient: Total time spent is greater than 50% in coordination of care (as documented) at patient's floor/unit and/or counseling patient: Coding Level of Care Code None Diagnoses Colon cancer C18.9
[2021-10-27] MEDS ORDERED: INSULIN GLARGINE SOLOSTAR 100 UNITS/ML 3 ML PEN SC SCH (09:00)
[2021-10-27] MEDS ORDERED: Flu Vaccine-High Dose (Fluzone-HD) PF 65+ 0.7mL SYR IM ONE (09:00)
[2021-10-27] MEDS: INSULIN ASPART PER UNIT SC SCH ×3 (09:08→18:47)
--- NOTE | 2021-10-27 23:53 | Hospitalist Progress Note ---
Date of Service October 27, 2021 Assessment & Plan (1) Colon cancer: Plan: S/P day #1 Laparoscopic Assisted Colon Resection, Umbilical Hernia Repair performed by Dr. Arnol MD No postop complication Continue NG tube with minimal drainage Continue pain control continue IV fluids Continue ice chips and sips of water We will monitor H&H Continue monitor closely DM type 2 Most recent hemoglobin A1c 8.7 We will hold PO diabetic med Continue Lantus and insulin sliding scale Continue monitor blood sugar CKD stage III Creatinine 1.7 Continue monitor BMP DVT prophylaxis on heparin subcu CODE STATUS full code Admission and Anticipated Discharge Date Admission Date: October 26, 2021 Subjective Patient was seen and examined for postop follow-up Lying in bed with no distress with son at bedside Patient said that he does have very mild abdominal discomfort with movement NG tube continued to drain Denies any chest pain, palpitation, dizziness and shortness of breath Review of Systems Review of Systems: All systems reviewed & are unremarkable except as noted in Subjective Physical Exam Physical Exam: General- No acute distress Head- atraumatic Eyes- PERRL, EOMI, ENT- NG tube in place Neck- supple, no JVD Lungs- clear to auscultation Heart- regular rhythm; no murmur Abdomen- normal bowel sounds, soft, +tenderness, + dressing Extremities- no calf tenderness Neuro- alert, oriented x 3; PERRL, EOMI; no facial palsy; no dysarthria Skin- warm & dry Results & Data Results & Data ([facility]) Vital Signs (Past 12 Hours) Vital Signs Temp Pulse Resp BP BP Pulse Ox 10/27/21 20:32 36.7 C 88 16 147/78 H 93 10/27/21 16:04 36.9 C 98 H 20 117/72 98 10/27/21 11:55 36.8 C 92 H 17 143/72 H 94
[2021-10-28] MEDS: INSULIN ASPART PER UNIT SC SCH ×4 (00:19→17:42)
[2021-10-28] MEDS: SODIUM CHLORIDE 0.9% 1000ML 1,000 ML IV SCH ×6 (01:20→22:42)
[2021-10-28] MEDS: HEPARIN SOD 5,000 UNIT/0.5 ML VIAL SQ SCH ×2 (05:31→13:33)
[2021-10-28] MEDS: ACETAMINOPHEN 1,000 MG/100 ML VIAL IV SCH ×3 (05:31→22:41)
[2021-10-28] MEDS: MoRPHine SULFATE PCA 30 MG/30 ML IV PRN (06:47)
[2021-10-28 07:45] LABS: Basophils # (auto) 0.04 K/uL (0-0.2); Basophils % (auto) 0.3 %; Eosinophils # (auto) 0.06 K/uL (0-0.5); Eosinophils % (auto) 0.4 %; Hematocrit (blood only) 33.5 % (42-52); Hemoglobin 10.3 g/dL (14.0-18.0); Immature Granulocytes # (auto) 0.06 K/uL (0.00-0.02); Immature Granulocytes % (auto) 0.4 %; Lymphocytes # (auto) 1.09 K/uL (1.2-3.4); Lymphocytes % (auto) 7.3 %; Mean Corpuscular Hemoglobin 27.5 pg (25-34); Mean Corpuscular Hgb Conc 30.7 g/dL (32-36); Mean Corpuscular Volume 89.6 fL (80-100); Mean Platelet Volume 9.5 fL (7.4-10.4); Monocytes # (auto) 0.92 K/uL (0.11-0.59); Monocytes % (auto) 6.1 %; Neutrophils # (auto) 12.79 K/uL (1.4-6.5); Neutrophils % (auto) 85.5 %; Platelet Count 220 K/uL (130-400); RDW Coefficient of Variation 16.7 % (11.5-14.5); RDW Standard Deviation 54.9 fL (36.4-46.3); Red Blood Count 3.74 M/uL (4.7-6.1); White Blood Count 14.96 K/uL (4.8-10.8)
[2021-10-28 08:09] LABS: Albumin Globulin Ratio 1.1 (0.9-2); Albumin Level 3.2 gm/dl (3.4-5.0); BUN Creatinine Ratio 14.4 (10-20); Bilirubin,Total 1.3 mg/dl (0.2-1.0); Calcium 7.9 mg/dl (8.5-10.1); Est GFR (African American) 49.2 ml/min; Est GFR (Non-African American) 42.4 ml/min; Globulin 2.8 gm/dl (2.5-4.0); Potassium 5.5 mmol/L (3.5-5.1)
[2021-10-28] MEDS ORDERED: PHARMACY GLYCEMIC MGMT CONSULT PRN (08:38)
[2021-10-28] MEDS ORDERED: INSULIN GLARGINE SOLOSTAR 100 UNITS/ML 3 ML PEN SC SCH (12:00)
--- NOTE | 2021-10-28 13:07 | Surgery Progress Note ---
Date of Service October 28, 2021 Assessment & Plan (1) Obesity: (2) Anemia: (3) Colon cancer: Plan: Postoperative day 2 status post sigmoidectomy. He is distended and still having some nausea. Minimal NG tube output. We will leave the NG tube for now given the distention and oozing. Out of bed to chair today. Continue sips and chips. Continue DVT prophylaxis. Admission and Anticipated Discharge Date Admission Date: October 26, 2021 Subjective Postoperative day 2 status post sigmoidectomy. He is tolerating sips and chips. NG tube in place. He does complain of some nausea. Physical Exam Constitutional: well developed, + ill appearing and + obese Gastrointestinal (Abdomen): Inspection/Auscultation: + abdomen distended and + abdominal surgical incision (Intact; oozing from upper part of incision) Percussion/Palpation: + abdomen tender (Right sided abdominal tenderness) and abdomen soft; no guarding and abdomen not rigid Musculoskeletal: Extremities: no cyanosis and no clubbing Psychiatric: A+Ox3, euthymic affect Results & Data ([facility]) Vital Signs (Past 12 Hours) Vital Signs Temp Pulse Resp BP BP Pulse Ox 10/28/21 11:58 36.7 C 86 16 137/68 94 10/28/21 07:15 36.7 C 79 18 127/67 94 10/28/21 04:24 37.2 C 85 18 137/81 94 Laboratory Results 10/28/21 10/28/21 10/28/21 Range/Units 11:36 06:28 06:28 WBC 14.96 H (4.8-10.8) K/uL RBC 3.74 L (4.7-6.1) M/uL Hgb 10.3 L (14.0-18.0) g/dL Hct 33.5 L (42-52) % MCV 89.6 (80-100) fL MCH 27.5 (25-34) pg MCHC 30.7 L (32-36) g/dL RDW Std Deviation 54.9 H (36.4-46.3) fL RDW Coeff of Rea 16.7 H (11.5-14.5) % Plt Count 220 (130-400) K/uL MPV 9.5 (7.4-10.4) fL Immature Gran % (Auto) 0.4 % Neut % (Auto) 85.5 % Lymph % (Auto) 7.3 % [place] % (Auto) 6.1 % Eos % (Auto) 0.4 % Baso % (Auto) 0.3 % Neut # (Auto) 12.79 H (1.4-6.5) K/uL Lymph # (Auto) 1.09 L (1.2-3.4) K/uL [place] # (Auto) 0.92 H (0.11-0.59) K/uL Eos # (Auto) 0.06 (0-0.5) K/uL Baso # (Auto) 0.04 (0-0.2) K/uL Immature Gran # (Auto) 0.06 H (0.00-0.02) K/uL Sodium 137 (136-145) mmol/L Potassium 5.5 H (3.5-5.1) mmol/L Chloride 108 H (98-107) mmol/L Carbon Dioxide 17 L (21-32) mmol/L Anion Gap 12 H (3-11) BUN 23 (6-23) mg/dl Creatinine 1.60 H (0.6-1.4) mg/dl Est Cr Clr Drug Dosing 49.0 ml/min Est GFR ( Amer) 49.2 ml/min Est GFR (Non-Af Amer) 42.4 ml/min BUN/Creatinine Ratio 14.4 (10-20) Glucose 177 H (70-99(Fasting)) mg/dl POC Glucose 166 H (70-99) mg/dl Calcium 7.9 L (8.5-10.1) mg/dl Total Bilirubin 1.3 H (0.2-1.0) mg/dl AST 69 H (13-39) U/L ALT 40 (7-52) U/L Alkaline Phosphatase 87 (34-104) U/L Total Protein 6.0 (6.0-8.3) gm/dl Albumin 3.2 L (3.4-5.0) gm/dl Globulin 2.8 (2.5-4.0) gm/dl Albumin/Globulin Ratio 1.1 (0.9-2) 10/28/21 10/28/21 10/27/21 Range/Units 05:23 00:16 16:33 WBC (4.8-10.8) K/uL RBC (4.7-6.1) M/uL Hgb (14.0-18.0) g/dL Hct (42-52) % MCV (80-100) fL MCH (25-34) pg MCHC (32-36) g/dL RDW Std Deviation (36.4-46.3) fL RDW Coeff of Rea (11.5-14.5) % Plt Count (130-400) K/uL MPV (7.4-10.4) fL Immature Gran % (Auto) % Neut % (Auto) % Lymph % (Auto) % [place] % (Auto) % Eos % (Auto) % Baso % (Auto) % Neut # (Auto) (1.4-6.5) K/uL Lymph # (Auto) (1.2-3.4) K/uL [place] # (Auto) (0.11-0.59) K/uL Eos # (Auto) (0-0.5) K/uL Baso # (Auto) (0-0.2) K/uL Immature Gran # (Auto) (0.00-0.02) K/uL Sodium (136-145) mmol/L Potassium (3.5-5.1) mmol/L Chloride (98-107) mmol/L Carbon Dioxide (21-32) mmol/L Anion Gap (3-11) BUN (6-23) mg/dl Creatinine (0.6-1.4) mg/dl Est Cr Clr Drug Dosing ml/min Est GFR ( Amer) ml/min Est GFR (Non-Af Amer) ml/min BUN/Creatinine Ratio (10-20) Glucose (70-99(Fasting)) mg/dl POC Glucose 168 H 146 H 171 H (70-99) mg/dl Calcium (8.5-10.1) mg/dl Total Bilirubin (0.2-1.0) mg/dl AST (13-39) U/L ALT (7-52) U/L Alkaline Phosphatase (34-104) U/L Total Protein (6.0-8.3) gm/dl Albumin (3.4-5.0) gm/dl Globulin (2.5-4.0) gm/dl Albumin/Globulin Ratio (0.9-2) 10/27/21 Range/Units 13:28 WBC (4.8-10.8) K/uL RBC (4.7-6.1) M/uL Hgb (14.0-18.0) g/dL Hct (42-52) % MCV (80-100) fL MCH (25-34) pg MCHC (32-36) g/dL RDW Std Deviation (36.4-46.3) fL RDW Coeff of Rea (11.5-14.5) % Plt Count (130-400) K/uL MPV (7.4-10.4) fL Immature Gran % (Auto) % Neut % (Auto) % Lymph % (Auto) % [place] % (Auto) % Eos % (Auto) % Baso % (Auto) % Neut # (Auto) (1.4-6.5) K/uL Lymph # (Auto) (1.2-3.4) K/uL [place] # (Auto) (0.11-0.59) K/uL Eos # (Auto) (0-0.5) K/uL Baso # (Auto) (0-0.2) K/uL Immature Gran # (Auto) (0.00-0.02) K/uL Sodium (136-145) mmol/L Potassium (3.5-5.1) mmol/L Chloride (98-107) mmol/L Carbon Dioxide (21-32) mmol/L Anion Gap (3-11) BUN (6-23) mg/dl Creatinine (0.6-1.4) mg/dl Est Cr Clr Drug Dosing ml/min Est GFR ( Amer) ml/min Est GFR (Non-Af Amer) ml/min BUN/Creatinine Ratio (10-20) Glucose (70-99(Fasting)) mg/dl POC Glucose 156 H (70-99) mg/dl Calcium (8.5-10.1) mg/dl Total Bilirubin (0.2-1.0) mg/dl AST (13-39) U/L ALT (7-52) U/L Alkaline Phosphatase (34-104) U/L Total Protein (6.0-8.3) gm/dl Albumin (3.4-5.0) gm/dl Globulin (2.5-4.0) gm/dl Albumin/Globulin Ratio (0.9-2)
--- NOTE | 2021-10-28 13:32 | Pharmacy Report ---
Pharmacy Glycemic Short Note 2 - Date of Service October 28, 2021 - Glycemic Short BSG Results (Last 24 hours): 10/27/21 10/27/21 10/28/21 13:28 16:33 00:16 Glucose POC Glucose 156 H 171 H 146 H 10/28/21 10/28/21 10/28/21 05:23 06:28 11:36 Glucose 177 H POC Glucose 168 H 166 H OUTPATIENT ANTIDIABETIC REGIMEN: * Lantus 60 units qAM + 36 units qPM * Alogliptin 12.5 mg PO daily * metformin 1000 mg BIDM * Jardiance 10 mg daily ASSESSMENT: * Mr Boykin is a 71 y/o M with a PMH of T2DM who presents s/p surgery for colon cancer. * Patient's BSGs yesterday were [phone] mg/dL. Fasting today is 168 mg/dL. * Patient received 11 units of insulin yesterday (5 units of basal and 6 units of bolus). * Patient is going into the third full day of NPO status so expect glycogen levels to see be depleted. * Continue current regimen as all BSGs less than 180 mg/dL. PLAN FOR INPATIENT GLYCEMIC CONTROL: * Hold outpatient oral diabetes medications * Basal insulin * Lantus 5 units SQ daily @noon * Bolus insulin * NovoLog per scale ACHS or Q6hrs while NPO * Goal Range: Low 120 mg/dL - High 160 mg/dL * Correction Factor: 25 mg/dL/unit * Nutritional / Prandial insulin per carb ratio of 1 unit per 15 grams CHO consumed PLAN FOR DISCHARGE: * TBD
--- NOTE | 2021-10-28 14:05 | Hospitalist Progress Note ---
Date of Service October 28, 2021 Assessment & Plan (1) Colon cancer: Plan: S/P day #2 Laparoscopic Assisted Colon Resection, Umbilical Hernia Repair performed by Dr. Arnol MD No postop complication Continue NG tube drainage Continue pain control Continue ICE and chips Continue monitor H&H Continue monitor closely DM type 2 Most recent hemoglobin A1c 8.7 We will hold PO diabetic med Continue Lantus and insulin sliding scale Continue monitor blood sugar Hyperkalemia Potassium 5.5 today Continue monitor BMP CKD stage III Creatinine 1.6 Continue monitor BMP DVT prophylaxis on heparin subcu CODE STATUS full code Admission and Anticipated Discharge Date Admission Date: October 26, 2021 Subjective Patient was seen and examined for postop follow-up Lying in bed with no distress Continue NG tube drainage Denies any abdominal pain, nausea and vomiting Denies any chest pain, palpitation, dizziness and shortness of breath Review of Systems Review of Systems: All systems reviewed & are unremarkable except as noted in Subjective Physical Exam Physical Exam: General- No acute distress Head- atraumatic Eyes- PERRL, EOMI, Neck- supple, no JVD Lungs- clear to auscultation Heart- regular rhythm; no murmur Abdomen- normal bowel sounds, soft, +tenderness, + dressing Extremities- no calf tenderness Neuro- alert, oriented x 3; PERRL, EOMI; no facial palsy; no dysarthria Skin- warm & dry Results & Data Results & Data ([facility]) Vital Signs (Past 12 Hours) Vital Signs Temp Pulse Resp BP BP Pulse Ox 10/28/21 11:58 36.7 C 86 16 137/68 94 10/28/21 07:15 36.7 C 79 18 127/67 94 10/28/21 04:24 37.2 C 85 18 137/81 94
--- NOTE | 2021-10-28 19:58 | Communication Note ---
Date of Service: October 28, 2021 Overnight developments : 10/28, 751PM Increased bloody drainage from abdominal [place] drains as per RN. Abdominal pain of 3/10 as per RN. Hemoglobin down to 9.5 from 10.3 this morning Follow H&H Hold heparin subcu for now. 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 Dilaudid as needed interim.
[2021-10-28] MEDS ORDERED: SODIUM BICARB 8.4% INJ 50 MEQ/50 ML SYR IV STA (19:59)
[2021-10-28 20:32] LABS: Hematocrit (blood only) 31.6 % (42-52); Hemoglobin 9.5 g/dL (14.0-18.0)
[2021-10-28 20:51] LABS: BUN Creatinine Ratio 15.2 (10-20); Calcium 7.9 mg/dl (8.5-10.1); Creatinine Clr Calc Pharmacy 47.8 ml/min; Est GFR (African American) 47.7 ml/min; Est GFR (Non-African American) 41.2 ml/min; Potassium 5.4 mmol/L (3.5-5.1)
[2021-10-28 21:01] LABS: Base Excess VBG -8.5 mEq/L; Oxygen Saturation VBG 66.4 %; pH VBG 7.26 (7.36-7.41)
[2021-10-28] MEDS ORDERED: SODIUM CHLORIDE 0.9% 500 ML IV ONE (21:16)
[2021-10-28] MEDS ORDERED: DEXTROSE 50% 50 ML SYRINGE IV ONE (21:30)
[2021-10-28] MEDS ORDERED: INSULIN HUMAN REGULAR PER UNIT 10 UNITS in SYRINGE 9.9 ML IV ONE (21:30)
[2021-10-29] MEDS: INSULIN ASPART PER UNIT SC SCH ×5 (00:14→21:44)
[2021-10-29 01:05] LABS: BUN Creatinine Ratio 15.5 (10-20); Calcium 7.9 mg/dl (8.5-10.1); Creatinine Clr Calc Pharmacy 48.7 ml/min; Est GFR (African American) 48.8 ml/min; Est GFR (Non-African American) 42.1 ml/min; Potassium 4.9 mmol/L (3.5-5.1)
[2021-10-29] MEDS: MoRPHine SULFATE PCA 30 MG/30 ML IV PRN (02:00)
[2021-10-29] MEDS: SODIUM CHLORIDE 0.9% 1000ML 1,000 ML IV SCH ×3 (05:21→19:59)
[2021-10-29] MEDS: ACETAMINOPHEN 1,000 MG/100 ML VIAL IV SCH ×2 (05:32→15:11)
--- NOTE | 2021-10-29 06:46 | Surgery Progress Note ---
Date of Service October 29, 2021 Assessment & Plan (1) Obesity: (2) Anemia: (3) Colon cancer: Plan: Postoperative day 3 status post sigmoidectomy. Minimal NG tube output. Remove NG tube, begin clear liquids. Out of bed to chair today. Continue DVT prophylaxis. Admission and Anticipated Discharge Date Admission Date: October 26, 2021 Subjective States he is feeling fairly well today. Denies pain. Denies nausea. Minimal MARU output. Physical Exam Constitutional: well developed, + ill appearing and + obese Gastrointestinal (Abdomen): Inspection/Auscultation: + abdomen distended (Minimal, decreased from yesterday) and + abdominal surgical incision (Intact; oozing from upper part of incision) Percussion/Palpation: + abdomen tender (Right sided abdominal tenderness) and abdomen soft; no guarding and abdomen not rigid Musculoskeletal: Extremities: no cyanosis and no clubbing Psychiatric: A+Ox3, euthymic affect Results & Data ([facility]) Vital Signs (Past 12 Hours) Vital Signs Temp Pulse Pulse Resp BP BP Pulse Ox 10/29/21 03:53 37.4 C 85 20 132/64 92 10/29/21 00:00 96 H 10/28/21 22:34 37.1 C 96 H 19 120/67 93 10/28/21 19:17 37.4 C 86 17 130/56 L 92
[2021-10-29 07:14] LABS: Basophils # (auto) 0.04 K/uL (0-0.2); Basophils % (auto) 0.3 %; Eosinophils # (auto) 0.13 K/uL (0-0.5); Eosinophils % (auto) 1.1 %; Hematocrit (blood only) 29.8 % (42-52); Immature Granulocytes # (auto) 0.08 K/uL (0.00-0.02); Immature Granulocytes % (auto) 0.7 %; Lymphocytes # (auto) 0.91 K/uL (1.2-3.4); Lymphocytes % (auto) 7.5 %; Mean Corpuscular Hemoglobin 27.1 pg (25-34); Mean Corpuscular Hgb Conc 30.2 g/dL (32-36); Mean Corpuscular Volume 89.8 fL (80-100); Mean Platelet Volume 9.4 fL (7.4-10.4); Monocytes # (auto) 0.84 K/uL (0.11-0.59); Monocytes % (auto) 6.9 %; Neutrophils # (auto) 10.12 K/uL (1.4-6.5); Neutrophils % (auto) 83.5 %; Platelet Count 241 K/uL (130-400); RDW Coefficient of Variation 16.9 % (11.5-14.5); RDW Standard Deviation 55.4 fL (36.4-46.3); Red Blood Count 3.32 M/uL (4.7-6.1); White Blood Count 12.12 K/uL (4.8-10.8)
[2021-10-29 07:33] LABS: BUN Creatinine Ratio 16.9 (10-20); Creatinine Clr Calc Pharmacy 49.4 ml/min; Est GFR (African American) 49.2 ml/min; Est GFR (Non-African American) 42.4 ml/min; Potassium 5.1 mmol/L (3.5-5.1)
[2021-10-29] MEDS: HYDROmorphone INJ 0.5 MG/0.5 ML SYR IV PRN (09:16)
--- NOTE | 2021-10-29 11:41 | Pharmacy Report ---
Pharmacy Glycemic Short Note 2 - Date of Service October 29, 2021 - Glycemic Short BSG Results (Last 24 hours): 10/28/21 10/28/21 10/28/21 11:36 17:41 20:20 Glucose 167 H POC Glucose 166 H 156 H 10/29/21 10/29/21 10/29/21 00:05 00:20 06:03 Glucose 195 H 177 H POC Glucose 201 H 10/29/21 06:07 Glucose POC Glucose 198 H OUTPATIENT ANTIDIABETIC REGIMEN: * Lantus 60 units qAM + 36 units qPM * Alogliptin 12.5 mg PO daily * metformin 1000 mg BIDM * Jardiance 10 mg daily ASSESSMENT: 10/29/21 * Patient's BSGs yesterday were [phone] mg/dL and fasting this morning was 198 mg/dL. * Increase basal to 10 units (approximately what patient received yesterday- received total of 11 units of insulin yesterday with 5 units of basal and 6 units of bolus). * Tighten Novolog to provide stronger CF. Background * Mr Boykin is a 71 y/o M with a PMH of T2DM who presents s/p surgery for colon cancer. * Patient's BSGs yesterday were [phone] mg/dL. Fasting today is 168 mg/dL. * Patient received 11 units of insulin yesterday (5 units of basal and 6 units of bolus). * Patient is going into the third full day of NPO status so expect glycogen levels to see be depleted. * Continue current regimen as all BSGs less than 180 mg/dL. PLAN FOR INPATIENT GLYCEMIC CONTROL: * Hold outpatient oral diabetes medications * Basal insulin * Lantus 10 units SQ daily @noon * Bolus insulin * NovoLog per scale ACHS or Q6hrs while NPO * Goal Range: Low 110 mg/dL - High 140 mg/dL * Correction Factor: 20 mg/dL/unit * Nutritional / Prandial insulin per carb ratio of 1 unit per 7 grams CHO consumed PLAN FOR DISCHARGE: * TBD
[2021-10-29] MEDS ORDERED: INSULIN GLARGINE SOLOSTAR 100 UNITS/ML 3 ML PEN SC SCH ×2 (12:00→21:00)
--- NOTE | 2021-10-29 22:56 | Hospitalist Progress Note ---
Date of Service October 29, 2021 Assessment & Plan (1) Colon cancer: Plan: S/P day #3 Laparoscopic Assisted Colon Resection, Umbilical Hernia Repair performed by Dr. Arnol MD No postop complication Continue NG tube removed Continue pain control starting on clear liquid diet Continue monitor H&H Continue monitor closely DM type 2 Most recent hemoglobin A1c 8.7 We will hold PO diabetic med Continue Lantus and insulin sliding scale Continue monitor blood sugar Hyperkalemia Potassium 5.1 today Continue monitor BMP CKD stage III Creatinine 1.6 Continue monitor BMP DVT prophylaxis on heparin subcu CODE STATUS full code Admission and Anticipated Discharge Date Admission Date: October 26, 2021 Subjective Patient was seen and examined for postop follow-up Lying in bed with no distress NG tube removed today and starting on clear liquid Denies any chest pain, palpitation, dizziness and shortness of breath Physical Exam Physical Exam: General- No acute distress Head- atraumatic Eyes- PERRL, EOMI, Neck- supple, no JVD Lungs- clear to auscultation Heart- regular rhythm; no murmur Abdomen- normal bowel sounds, soft, +tenderness, + dressing Extremities- no calf tenderness Neuro- alert, oriented x 3; PERRL, EOMI; no facial palsy; no dysarthria Skin- warm & dry Results & Data Results & Data ([facility]) Vital Signs (Past 12 Hours) Vital Signs Temp Pulse Pulse Resp BP BP Pulse Ox 10/29/21 19:50 37.1 C 81 16 127/68 97 10/29/21 15:46 37.1 C 83 19 115/64 97 10/29/21 14:19 88 10/29/21 12:57 37 C 100 H 16 125/64 97
[2021-10-30] MEDS: HYDROmorphone INJ 0.5 MG/0.5 ML SYR IV PRN ×2 (00:02→21:44)
[2021-10-30] MEDS: ONDANSETRON INJ 2 MG/ML 2 ML VIAL IV PRN ×2 (00:02→18:23)
[2021-10-30] MEDS: SODIUM CHLORIDE 0.9% 1000ML 1,000 ML IV SCH ×2 (03:02→20:22)
[2021-10-30 06:32] LABS: Basophils # (auto) 0.03 K/uL (0-0.2); Basophils % (auto) 0.3 %; Eosinophils # (auto) 0.15 K/uL (0-0.5); Eosinophils % (auto) 1.4 %; Hematocrit (blood only) 31.7 % (42-52); Hemoglobin 9.8 g/dL (14.0-18.0); Immature Granulocytes # (auto) 0.04 K/uL (0.00-0.02); Immature Granulocytes % (auto) 0.4 %; Lymphocytes # (auto) 0.82 K/uL (1.2-3.4); Lymphocytes % (auto) 7.7 %; Mean Corpuscular Hemoglobin 27.2 pg (25-34); Mean Corpuscular Hgb Conc 30.9 g/dL (32-36); Mean Corpuscular Volume 88.1 fL (80-100); Mean Platelet Volume 9.5 fL (7.4-10.4); Monocytes % (auto) 5.6 %; Neutrophils % (auto) 84.6 %; Platelet Count 261 K/uL (130-400); RDW Coefficient of Variation 16.5 % (11.5-14.5); RDW Standard Deviation 53.5 fL (36.4-46.3); White Blood Count 10.64 K/uL (4.8-10.8)
[2021-10-30 06:43] LABS: BUN Creatinine Ratio 18.2 (10-20); Calcium 7.9 mg/dl (8.5-10.1); Creatinine Clr Calc Pharmacy 58.5 ml/min; Est GFR (African American) 59.3 ml/min; Est GFR (Non-African American) 51.2 ml/min; Potassium 4.6 mmol/L (3.5-5.1)
--- NOTE | 2021-10-30 07:45 | Surgery Progress Note ---
Date of Service October 30, 2021 Assessment & Plan (1) Colon cancer: Plan: POD#4 patient started to mobilize fluid yesterday-we will continue so today Path is still pending The T[place] drain was removed dressing was applied Oral intake eval clear liquids to full liquids Suspect will be in the hospital next 2 or 3 days All questions answered Intraoperative findings was discussed with the patient including the discovery of cirrhosis or portal hypertension patient stated he did drink heavily in the past Hemoglobin noted slightly elevated from yesterday indicating an element concentration also indicated with the elevated creatinine chronic renal ins ufficiency At this point will give him some chips and sips given 500 cc bolus over 3 hours Bladeising surgeon covering this weekend Admission and Anticipated Discharge Date Admission Date: October 26, 2021 Subjective Has some abdominal pain on the right side this morning states to have a bowel movement this morning otherwise no other complaints Physical Exam Physical Exam: Abdomen is moderately distended but normal he does have a very distended abdomen that is his normal body habitus The incision is intact some clots around the [place] drain with some ecchymosis inferior aspect of the incision Results & Data ([facility]) Vital Signs (Past 12 Hours) Vital Signs Temp Pulse Pulse Pulse Resp BP Pulse Ox 10/30/21 05:45 75 10/30/21 04:00 36.7 C 77 20 134/77 96 10/30/21 00:05 37.4 C 82 18 154/74 H 99 10/29/21 19:50 37.1 C 81 16 127/68 97 Laboratory Results Noted PG Care Time/CCT Total # of Minutes Spent Total Time Spent with Patient: Total time spent is greater than 50% in coordination of care (as documented) at patient's floor/unit and/or counseling patient: Coding Level of Care Code None Diagnoses Colon cancer C18.9
[2021-10-30] MEDS: ACETAMINOPHEN 325 MG TAB PO PRN (08:24)
[2021-10-30] MEDS: INSULIN ASPART PER UNIT SC SCH ×4 (08:27→21:00)
[2021-10-30] MEDS ORDERED: INSULIN GLARGINE SOLOSTAR 100 UNITS/ML 3 ML PEN SC SCH ×2 (09:00→12:00)
[2021-10-30] MEDS: HEPARIN SOD 5,000 UNIT/0.5 ML VIAL SQ SCH ×2 (10:12→21:01)
--- NOTE | 2021-10-30 14:30 | Pharmacy Report ---
Pharmacy Glycemic Short Note 2 - Date of Service October 30, 2021 - Glycemic Short BSG Results (Last 24 hours): 10/29/21 10/29/21 10/30/21 17:00 21:34 05:41 Glucose 220 H POC Glucose 264 H 182 H 10/30/21 10/30/21 07:19 12:16 Glucose POC Glucose 237 H 206 H OUTPATIENT ANTIDIABETIC REGIMEN: * Lantus 60 units qAM + 36 units qPM * Alogliptin 12.5 mg PO daily * metformin 1000 mg BIDM * Jardiance 10 mg daily ASSESSMENT: 10/30/21 * Patient received total of 68 units of insulin today, of which 35 units were basal insulin * Fasting BSG 220 mg/dL - estimated total basal likely closer to 40 units daily, plan to give 20 units basal for this morning * Started on clear diet yesterday, however today no documentation of oral intake noted for breakfast and lunch. Will plan to add scale on for HS time as it is unclear if patient will be eating or not. Plan to scale back from previous day of 35 units total of basal in case patient is NPO today 10/29/21 * Patient's BSGs yesterday were [phone] mg/dL and fasting this morning was 198 mg/dL. * Increase basal to 10 units (approximately what patient received yesterday- received total of 11 units of insulin yesterday with 5 units of basal and 6 units of bolus). * Tighten Novolog to provide stronger CF. Background * Mr Boykin is a 71 y/o M with a PMH of T2DM who presents s/p surgery for colon cancer. * Patient's BSGs yesterday were [phone] mg/dL. Fasting today is 168 mg/dL. * Patient received 11 units of insulin yesterday (5 units of basal and 6 units of bolus). * Patient is going into the third full day of NPO status so expect glycogen levels to see be depleted. * Continue current regimen as all BSGs less than 180 mg/dL. PLAN FOR INPATIENT GLYCEMIC CONTROL: * Hold outpatient oral diabetes medications * Basal insulin * Lantus 20 units QAM * Lantus 7-15 units QPM depending on BSG value * Bolus insulin * NovoLog per scale ACHS or Q6hrs while NPO * Goal Range: Low 110 mg/dL - High 140 mg/dL * Correction Factor: 18 mg/dL/unit * Nutritional / Prandial insulin per carb ratio of 1 unit per 5 grams CHO consumed PLAN FOR DISCHARGE: * TBD
--- NOTE | 2021-10-30 23:27 | Hospitalist Progress Note ---
Date of Service October 30, 2021 Assessment & Plan (1) Colon cancer: Plan: S/P day #4 Laparoscopic Assisted Colon Resection, Umbilical Hernia Repair performed by Dr. Arnol MD No postop complication NG tube was discontinued on 10/29 Continue pain control Continue clear liquid diet Hemoglobin stable at 9.8 Continue monitor closely DM type 2 Most recent hemoglobin A1c 8.7 Continue to hold PO diabetic med Continue Lantus and insulin sliding scale Continue monitor blood sugar Hyperkalemia Potassium 4.6 today Continue monitor BMP CKD stage III Creatinine 1.3 Continue monitor BMP DVT prophylaxis on heparin subcu CODE STATUS full code Admission and Anticipated Discharge Date Admission Date: October 26, 2021 Subjective Patient was seen and examined for postop follow-up Sitting in chair with no acute distress Tolerated clear liquid diet yesterday Denies any chest pain, palpitation, dizziness and shortness of breath Review of Systems Review of Systems: All systems reviewed & are unremarkable except as noted in Subjective Physical Exam Physical Exam: General- No acute distress Head- atraumatic Eyes- PERRL, EOMI, Neck- supple, no JVD Lungs- clear to auscultation Heart- regular rhythm; no murmur Abdomen- normal bowel sounds, soft, +tenderness, + dressing Extremities- no calf tenderness Neuro- alert, oriented x 3; PERRL, EOMI; no facial palsy; no dysarthria Skin- warm & dry Results & Data Results & Data ([facility]) Vital Signs (Past 12 Hours) Vital Signs Temp Pulse Pulse Resp BP BP Pulse Ox 10/30/21 20:00 37.0 C 73 18 145/74 H 92 10/30/21 15:26 36.8 C 71 17 133/74 98 10/30/21 14:19 72
[2021-10-31 06:21] LABS: Basophils # (auto) 0.02 K/uL (0-0.2); Basophils % (auto) 0.2 %; Eosinophils # (auto) 0.14 K/uL (0-0.5); Eosinophils % (auto) 1.5 %; Hemoglobin 9.6 g/dL (14.0-18.0); Immature Granulocytes # (auto) 0.06 K/uL (0.00-0.02); Immature Granulocytes % (auto) 0.6 %; Lymphocytes # (auto) 1.01 K/uL (1.2-3.4); Lymphocytes % (auto) 10.5 %; Mean Corpuscular Volume 87.1 fL (80-100); Mean Platelet Volume 8.4 fL (7.4-10.4); Monocytes # (auto) 0.66 K/uL (0.11-0.59); Monocytes % (auto) 6.9 %; Neutrophils # (auto) 7.71 K/uL (1.4-6.5); Neutrophils % (auto) 80.3 %; Platelet Count 230 K/uL (130-400); RDW Coefficient of Variation 16.3 % (11.5-14.5); RDW Standard Deviation 52.1 fL (36.4-46.3); Red Blood Count 3.56 M/uL (4.7-6.1)
[2021-10-31 06:43] LABS: BUN Creatinine Ratio 20.1 (10-20); Calcium 7.8 mg/dl (8.5-10.1); Est GFR (African American) 58.3 ml/min; Est GFR (Non-African American) 50.3 ml/min; Magnesium 1.7 mg/dl (1.7-2.4); Phosphorus 2.3 mg/dl (2.5-4.9); Potassium 4.3 mmol/L (3.5-5.1)
--- NOTE | 2021-10-31 07:39 | Surgery Progress Note ---
Date of Service October 31, 2021 Assessment & Plan (1) Colon cancer: Plan: POD#5 laparoscopic R colon resection, umbilical hernia repair WBC 9.6, Hbg 9.6, Cr: 1.3 (1.3). VSS, afebrile. Urine output adequate Patient nauseated and vomited yesterday after advancing to full liquids, abdomen is bloated. We will obtain a KUB today for further evaluation He is passing some flatus as well as passing diarrheal type stools... will order stool sample to check for cdiff Continue on liquid diet for now, awaiting patient to feel symptomatically better. IVF running at 60cc/hr Will need to continue working on ambulation and pulmonary toilet. PT/OT ordered Pathology pending Pt seen/examined with Dr. Ambrose Admission and Anticipated Discharge Date Admission Date: October 26, 2021 Supervising Physician Co-Signing Physician Notes I and O indicate fluid retention confirming clinical picture with +1 pedal edema will check with medical service regarding fluid management =/- diuresis Subjective Patient says he is feeling about the same as yesterday. He did however have a bout of emesis, he thinks nausea related to drinking soda. He feels mildly nauseated this AM. Is passing flatus and passing loose stools. Pain is controlled. Says he has been out of bed. Prefers to keep his alberto in for now. Physical Exam Physical Exam: awake, sitting up in bed Respiratory: on 3L nasal cannula with good saturations Gastrointestinal (Abdomen): Inspection/Auscultation: + abdomen distended and + abdominal surgical incision (c/d/i with midline jamey, no signs of infection, scant bloody drainage) Percussion/Palpation: abdomen soft Results & Data ([facility]) Vital Signs (Past 12 Hours) Vital Signs Temp Pulse Pulse Resp BP BP Pulse Ox 10/31/21 07:20 36.8 C 58 L 19 143/73 H 98 10/31/21 06:07 36.7 C 70 20 170/77 H 98 10/31/21 00:33 71 10/30/21 23:55 36.9 C 76 18 147/65 H 98 10/30/21 20:00 37.0 C 73 18 145/74 H 92 PG Care Time/CCT Total # of Minutes Spent Total Time Spent with Patient: Total time spent is greater than 50% in coordination of care (as documented) at patient's floor/unit and/or counseling patient: Coding Level of Care Code None Diagnoses Colon cancer C18.9
[2021-10-31] MEDS ORDERED: FUROSEMIDE 40 MG/4 ML VIAL IV ONE (08:37)
[2021-10-31] MEDS: HEPARIN SOD 5,000 UNIT/0.5 ML VIAL SQ SCH ×2 (08:47→20:35)
[2021-10-31] MEDS: INSULIN GLARGINE SOLOSTAR 100 UNITS/ML 3 ML PEN SC SCH ×2 (08:47→20:36)
[2021-10-31] MEDS: INSULIN ASPART PER UNIT SC SCH ×4 (09:03→20:35)
[2021-10-31] MEDS: ONDANSETRON INJ 2 MG/ML 2 ML VIAL IV PRN (09:23)
--- NOTE | 2021-10-31 10:11 | XRay Report ---
KUB HISTORY: Acute nausea and abdominal distention with recent abdominal surgery s/p R colon resection, bloated/nausea COMPARISON: KUB 10/27/2020, CT abdomen and pelvis 10/24/2020 FINDINGS: Midline skin jamey. Cholecystectomy. Gaseous distention is noted involving the stomach, l arge and small bowel.r small bowel loops measure up to 4.2 cm. Large bowel loops measure up to 7.7 cm . Previously noted 6 mm calculus of the right ureterovesicular junction is not identified. Bilateral nephrolithiasis again seen. No pneumoperitoneum or pneumatosis. No fracture. IMPRESSION: 1. Distended air-filled loops of large and small bowel are suggestive of postoperative ileus. Follow- up recommended. 2. Bilateral nephrolithiasis redemonstrated. 3. The previously noted calculus of the right ureterovesicular junction is not identified. ACT 112: Negative or not required by law. The above report was generated using voice recognition software. It may contain grammatical, syntax o r spelling errors. Electronically signed by: Jay Hall M.D. 10/31/2021 10:10 AM
--- NOTE | 2021-10-31 10:48 | Pharmacy Report ---
Pharmacy Glycemic Short Note 2 - Date of Service October 31, 2021 - Glycemic Short BSG Results (Last 24 hours): 10/30/21 10/30/21 10/30/21 12:16 16:05 20:29 Glucose POC Glucose 206 H 189 H 164 H 10/31/21 10/31/21 06:02 07:19 Glucose 194 H POC Glucose 202 H OUTPATIENT ANTIDIABETIC REGIMEN: * Lantus 60 units qAM + 36 units qPM * Alogliptin 12.5 mg PO daily * metformin 1000 mg BIDM * Jardiance 10 mg daily ASSESSMENT: 10/31/21 * Patient received total of 35 units yesterday, of which 20 units were basal insulin * PO intake still poorer yesterday, had scaled back on basal yesterday due to concerns of decreased PO intake * Fasting BSG 194 mg/dL - plan to titrate up to 25 units of basal for this morning, may add small scale for HS 10/30/21 * Patient received total of 68 units of insulin today, of which 35 units were basal insulin * Fasting BSG 220 mg/dL - estimated total basal likely closer to 40 units daily, plan to give 20 units basal for this morning * Started on clear diet yesterday, however today no documentation of oral intake noted for breakfast and lunch. Will plan to add scale on for HS time as it is unclear if patient will be eating or not. Plan to scale back from previous day of 35 units total of basal in case patient is NPO today 10/29/21 * Patient's BSGs yesterday were [phone] mg/dL and fasting this morning was 198 mg/dL. * Increase basal to 10 units (approximately what patient received yesterday- received total of 11 units of insulin yesterday with 5 units of basal and 6 units of bolus). * Tighten Novolog to provide stronger CF. Background * Mr Boykin is a 71 y/o M with a PMH of T2DM who presents s/p surgery for colon cancer. * Patient's BSGs yesterday were [phone] mg/dL. Fasting today is 168 mg/dL. * Patient received 11 units of insulin yesterday (5 units of basal and 6 units of bolus). * Patient is going into the third full day of NPO status so expect glycogen levels to see be depleted. * Continue current regimen as all BSGs less than 180 mg/dL. PLAN FOR INPATIENT GLYCEMIC CONTROL: * Hold outpatient oral diabetes medications * Basal insulin * Lantus 25 units QAM * Lantus 0-10 units QPM depending on BSG value * Bolus insulin * NovoLog per scale ACHS or Q6hrs while NPO * Goal Range: Low 110 mg/dL - High 140 mg/dL * Correction Factor: 15 mg/dL/unit * Nutritional / Prandial insulin per carb ratio of 1 unit per 5 grams CHO consumed PLAN FOR DISCHARGE: * A1c 8.7% - insulin requirements during hospital stay much less than outpatient needs. Will continue to follow to determine if continuation of outpatient regimen is appropriate
--- NOTE | 2021-11-01 00:01 | Hospitalist Progress Note ---
Date of Service October 31, 2021 Assessment & Plan (1) Colon cancer: Plan: S/P day #5 Laparoscopic Assisted Colon Resection, Umbilical Hernia Repair performed by Dr. Arnol MD Distended air-filled loops of large and small bowel are suggestive of posto perative ileus. No postop complication NG tube was discontinued on 10/29 Continue pain control Continue clear liquid diet Hemoglobin stable at 9.6 Continue monitor closely DM type 2 Most recent hemoglobin A1c 8.7 Continue to hold PO diabetic med Continue Lantus and insulin sliding scale Continue monitor blood sugar Hyperkalemia Potassium 4.3 today Continue monitor BMP CKD stage III Creatinine 1.3 Continue monitor BMP DVT prophylaxis on heparin subcu CODE STATUS full code Admission and Anticipated Discharge Date Admission Date: October 26, 2021 Subjective Patient was seen and examined for postop follow-up Sitting in chair with no acute distress Pt feels nauseated today Tolerated clear liquid diet Denies any chest pain, palpitation, dizziness and shortness of breath Review of Systems Review of Systems: All systems reviewed & are unremarkable except as noted in Subjective Physical Exam Physical Exam: General- No acute distress Head- atraumatic Eyes- PERRL, EOMI, Neck- supple, no JVD Lungs- clear to auscultation Heart- regular rhythm; no murmur Abdomen- normal bowel sounds, soft, +tenderness, + dressing Extremities- no calf tenderness Neuro- alert, oriented x 3; PERRL, EOMI; no facial palsy; no dysarthria Skin- warm & dry Results & Data Results & Data ([facility]) Vital Signs (Past 12 Hours) Vital Signs Temp Pulse Resp BP Pulse Ox 10/31/21 19:49 36.7 C 51 L 18 128/69 99 10/31/21 16:00 36.5 C 72 18 141/69 H 96 10/31/21 12:13 36.6 C 72 19 137/66 100
[2021-11-01] MEDS ORDERED: METOPROLOL TARTRATE 1 MG/ML VIAL IV STA (05:38)
[2021-11-01] MEDS ORDERED: MAGNESIUM SULFATE / D5W 1 GM/100 ML BAG IV ONE ×2 (05:41→06:44)
[2021-11-01] MEDS ORDERED: SODIUM CHLORIDE 0.9% 500 ML IV ONE (05:45)
--- NOTE | 2021-11-01 05:45 | Communication Note ---
Date of Service: November 01, 2021 Made aware by RN of episodic A. fib/a flutter on the monitor overnight. Patient asymptomatic as per RN. Cardiac rate 140s currently as per RN. AP Episodic A. fib/atrial flutter New onset Initiate beta-james for rate control Check a.m. electrolytes now TTE, Cardiology consult Re: New onset A. fib/Aflutter Will relay to AM provider.
[2021-11-01 06:20] LABS: Basophils # (auto) 0.01 K/uL (0-0.2); Basophils % (auto) 0.1 %; Eosinophils # (auto) 0.22 K/uL (0-0.5); Eosinophils % (auto) 3.1 %; Hematocrit (blood only) 29.1 % (42-52); Hemoglobin 9.2 g/dL (14.0-18.0); Immature Granulocytes # (auto) 0.08 K/uL (0.00-0.02); Immature Granulocytes % (auto) 1.1 %; Lymphocytes # (auto) 1.05 K/uL (1.2-3.4); Lymphocytes % (auto) 14.8 %; Mean Corpuscular Hemoglobin 27.1 pg (25-34); Mean Corpuscular Hgb Conc 31.6 g/dL (32-36); Mean Corpuscular Volume 85.8 fL (80-100); Mean Platelet Volume 8.7 fL (7.4-10.4); Monocytes # (auto) 0.55 K/uL (0.11-0.59); Monocytes % (auto) 7.7 %; Neutrophils % (auto) 73.2 %; Platelet Count 199 K/uL (130-400); RDW Coefficient of Variation 16.1 % (11.5-14.5); RDW Standard Deviation 49.9 fL (36.4-46.3); Red Blood Count 3.39 M/uL (4.7-6.1); White Blood Count 7.11 K/uL (4.8-10.8)
[2021-11-01 06:29] LABS: Partial Thromboplastin Time 25.3 Seconds (21.0-31.0)
[2021-11-01 06:41] LABS: BUN Creatinine Ratio 20.6 (10-20); Calcium 7.7 mg/dl (8.5-10.1); Creatinine Clr Calc Pharmacy 58.6 ml/min; Est GFR (African American) 59.8 ml/min; Est GFR (Non-African American) 51.6 ml/min; Magnesium 1.7 mg/dl (1.7-2.4); Potassium 3.9 mmol/L (3.5-5.1)
[2021-11-01] MEDS ORDERED: POTASSIUM CHLORIDE CRTAB 20 MEQ TABCR PO STA (06:44)
--- NOTE | 2021-11-01 08:26 | Cardiology Consultation ---
Date of Consultation November 01, 2021 Assessment & Plan (1) Paroxysmal atrial fibrillation: (2) Anemia: (3) Post-operative state: (4) Hypomagnesemia: Patient here s/p colon resection with post op Ileus. Slowly improving. Patient developed PAF overnight. Non sustained episodes with HR"s ranging 140- 160's. Currently NSR. Treated with IV metoprolol and started metoprolol tartrate 25 mg BID. Continue current treatment Supplement electrolytes, including magnesium. He recently had outpatient monitor without arrhythmias. Likely this is a result of post op strain, electrolyte imbalance. Recent echo with preserved LV systolic function. Will not initiate anticoagulation with IV heparin at this time given recent colon resection. He would be high risk for GI bleed. Continue to monitor on telemetry and titrate beta james as needed/warranted. Continue Lovenox for DVT proph Case discussed with Dr. Do. Will follow. Supervising Physician Co-Signing Physician Notes Supervising Physician Attestation: I have personally performed a history and physical examination on the patient. I agree with the physician fish hatchery assistant's findings and plan as documented with the following additions. Subjective: Patient in sinus rhythm throughout my assessment. Spouse at bedside Exam: Mild diffuse abdominal pain, overall well controlled Cardiovascular: Regular rhythm no murmurs Trace lower extremity edema, lower extremity SCDs in place Data: EKG performed 11/01/2021 6:17 AM reveals atrial fibrillation with IVCD. Assessment and Plan: Problems as noted above -Holding off on anticoagulation given recent postoperative state, mild anemia -Optimize electrolytes -Agree with cautious metoprolol given bifascicular block on baseline EKG DVT prophylaxis: SCDs, subcu heparin Luisito Do DO History of Present Illness Reason for Consultation: Paroxysmal atrial fibrillation Requesting Physician: Dr. Kelley Attending Physician: Dr. Do History of Present Illness Patient is a 71 year old male who is known to [facility], having been evaluated in Aug 2021 by CHEPE Griffin for preop cardio evaluation. At that time he was found to have an abnormal EKG with RBBB and LAFB. He had no cardiac history and no history of arrhythmias. He went on to have a 24 hour holter monitor without concerning arrhythmias. He also underwent echo with preserved LV systolic funciton and no valvular disease. Several days ago he underwent colon resection for adenocarcinoma. Post op he developed ileus and required NG tube, which has since been removed. Earlier this morning, patient developed paroxysmal atrial fibrillation. Episodes were short in duration and occurred over several hours. He was found to have low magnesium. Episodes treated with IV metoprolol and then he was started on oral metoprolol tartrate 25 mg BID. Since around 7:00 AM, arrhythmias have improved. Patient denied symptoms of palpitations, tachypalpitations, chest pain or dyspnea. He voices no concerns currently. Resting in bed comfortably. No significant abdominal pain. No cough, fever, chills. Slowly advancing diet. Past medical history: 1.Hypertension 2.RBBB 3.Left anterior fascicular block, bifascicular block 4.Type 2 diabetes with diabetic polyneuropathy 5.CKD stage 3, follows with [facility]ph[facility] 6.Dyslipidemia, LDL goal below 100 7.Remote history of DVT with PE provoked by wearing a cast 8.Negative treadmill stress test 09/2007 done due to shortness of breath 9.Colorectal cancer Allergies Allergy/AdvReac Type Severity Reaction Status Date / Time Iodinated Contrast Media Allergy Unknown Vomiting Verified 10/26/21 05:41 Home Medications Medication Instructions Recorded Confirmed Type albuterol sulfate 90 mcg/actuation 1 puffs INH TID PRN gm 06/24/19 10/26/21 History aerosol inhaler allopurinol 100 mg tablet 100 mg PO QAM 06/24/19 10/26/21 History aspirin 81 mg tablet,delayed 81 mg PO QAM 06/24/19 10/26/21 History release (Adult Low Dose Aspirin) insulin glargine 100 unit/mL 60 unit SQ QAM 06/24/19 10/26/21 History subcutaneous solution lisinopril 10 mg tablet 10 mg PO QAM 06/24/19 10/26/21 History metformin 1,000 mg tablet 1,000 mg PO BID 06/24/19 10/26/21 History insulin glargine 100 unit/mL 36 unit SUBCUT PM 10/24/20 10/26/21 History subcutaneous solution alogliptin 12.5 mg tablet 12.5 mg PO QAM 09/27/21 10/26/21 History cholecalciferol (vitamin D3) 25 25 mcg PO QAM 09/27/21 10/26/21 History mcg (1,000 unit) capsule docusate sodium 100 mg capsule 100 mg PO QAM cap 09/27/21 10/26/21 History glucose 4 gram chewable tablet 4 g PO Q15M PRN 09/27/21 10/26/21 History triamcinolone acetonide 0.1 % 1 applic TOPICAL BID #454 g 09/27/21 10/26/21 Rx topical cream metronidazole 500 mg tablet 500 mg PO .COMPLEX #3 tab 10/11/21 10/26/21 Rx neomycin 500 mg tablet 1 g PO .COMPLEX #6 tab 10/11/21 10/26/21 Rx empagliflozin 25 mg tablet 25 mg PO QAM 10/19/21 10/26/21 History mirtazapine 15 mg tablet 15 mg PO HS 10/19/21 10/26/21 History simvastatin 80 mg tablet 40 mg PO HS 10/19/21 10/26/21 History Patient History Medical History (Updated 11/01/21 @ 11:28 by Rubi Shafer PA-C) Anemia BMI 34.0-34.9,adult Cancer COLON-REASON FOR SURGERY Chronic obstructive pulmonary disease LAST INHALER USE LAST WEEK CKD (chronic kidney disease) stage 3, GFR 30-59 ml/min Diabetes mellitus Dyslipidemia History of kidney stones History of pulmonary embolus (PE) REMOTE HX / LEG IN A A CAST - NO PROBLEMS SINCE Hypertension Neuropathy Obesity Sleep apnea CPAP/DOESN'T USE SOB (shortness of breath) on exertion 1 FLIGHT-"OUT OF SHAPE" Surgical History (Updated 10/27/21 @ 08:38 by Kelly Bragg RN) History of cholecystectomy History of colonoscopy 2020 History of total right knee replacement Hx of foot surgery LEFT HEEL Hx of repair of rotator cuff R&L S/P colon resection (10/26/21) Laparoscopic Assisted Right Colon Resection, Umbilical Hernia Repair- Singh Ambrose MD, FACS 10/26/2021 Status post laser lithotripsy of ureteral calculus 12/18/19 Family History Grandmother Diabetes Mother Breast cancer Sister Breast cancer Social History Smoking Status: Former smoker packs per day: 1; Years Smoked: 20; Second Hand Exposure: No; Hx Alcohol Use: No Hx Substance Use: No Preferred Language: Czech Communication Ability: Effective Geriatrician Required: No Beliefs That Will Affect Care: None marital status: Current Living Situation: Spouse current occupational status: retired How many Children do You have: 1 Feels Safe at Home: Yes during the past year weight has: remained stable Assistive Devices: Oxygen - Continuous Review of Systems Review of Systems: All systems reviewed & are unremarkable except as noted in HPI & below Physical Exam Constitutional: WD/WN, vitals as above well nourished and + obese; no acute distress ENMT: external ear and nose normal, oropharynx normal Neck: trachea midline, no thyromegaly Respiratory: normal respiratory effort, lungs clear to auscultation Cardiovascular: Rate/Rhythm: regular rate and regular rhythm Heart Sounds: normal S1 and normal S2; no murmur Vessels: no JVD Extremities: no edema Skin: no rashes, warm and dry Psychiatric: A+Ox3, euthymic affect Results & Data ([facility]) Vital Signs (Past 12 Hours) Vital Signs Temp Pulse Pulse Resp BP BP Pulse Ox 11/01/21 07:43 36.9 C 59 L 19 117/63 98 11/01/21 05:14 140 H 18 126/72 98 11/01/21 04:19 36.7 C 55 L 20 128/66 97 11/01/21 02:52 36.7 C 63 16 157/70 H 98 10/31/21 23:10 65 16 144/68 H 98 10/31/21 22:20 60 Laboratory Results 11/01/21 11/01/21 11/01/21 Range/Units Unknown 07:10 05:52 WBC (4.8-10.8) K/uL RBC (4.7-6.1) M/uL Hgb (14.0-18.0) g/dL Hct (42-52) % MCV (80-100) fL MCH (25-34) pg MCHC (32-36) g/dL RDW Std Deviation (36.4-46.3) fL RDW Coeff of Rea (11.5-14.5) % Plt Count (130-400) K/uL MPV (7.4-10.4) fL Immature Gran % (Auto) % Neut % (Auto) % Lymph % (Auto) % Baker % (Auto) % Eos % (Auto) % Baso % (Auto) % Neut # (Auto) (1.4-6.5) K/uL Lymph # (Auto) (1.2-3.4) K/uL Baker # (Auto) (0.11-0.59) K/uL Eos # (Auto) (0-0.5) K/uL Baso # (Auto) (0-0.2) K/uL Immature Gran # (Auto) (0.00-0.02) K/uL APTT (21.0-31.0) Seconds PTT Ratio Sodium (136-145) mmol/L Potassium (3.5-5.1) mmol/L Chloride (98-107) mmol/L Carbon Dioxide (21-32) mmol/L Anion Gap (3-11) BUN (6-23) mg/dl Creatinine (0.6-1.4) mg/dl Est Cr Clr Drug Dosing ml/min Est GFR ( Amer) ml/min Est GFR (Non-Af Amer) ml/min BUN/Creatinine Ratio (10-20) Glucose (70-99(Fasting)) mg/dl POC Glucose 197 H (70-99) mg/dl Calcium (8.5-10.1) mg/dl Magnesium (1.7-2.4) mg/dl Albumin 2.8 L (3.4-5.0) gm/dl TSH (0.300-4.500) uIu/ml Stl C. diff Tox B Gene Negative Cdiff Gene (Neg) 11/01/21 11/01/21 11/01/21 Range/Units 05:52 05:52 05:52 WBC (4.8-10.8) K/uL RBC (4.7-6.1) M/uL Hgb (14.0-18.0) g/dL Hct (42-52) % MCV (80-100) fL MCH (25-34) pg MCHC (32-36) g/dL RDW Std Deviation (36.4-46.3) fL RDW Coeff of Rea (11.5-14.5) % Plt Count (130-400) K/uL MPV (7.4-10.4) fL Immature Gran % (Auto) % Neut % (Auto) % Lymph % (Auto) % Baker % (Auto) % Eos % (Auto) % Baso % (Auto) % Neut # (Auto) (1.4-6.5) K/uL Lymph # (Auto) (1.2-3.4) K/uL Baker # (Auto) (0.11-0.59) K/uL Eos # (Auto) (0-0.5) K/uL Baso # (Auto) (0-0.2) K/uL Immature Gran # (Auto) (0.00-0.02) K/uL APTT 25.3 (21.0-31.0) Seconds PTT Ratio 1.0 Sodium 136 (136-145) mmol/L Potassium 3.9 (3.5-5.1) mmol/L Chloride 105 (98-107) mmol/L Carbon Dioxide 25 (21-32) mmol/L Anion Gap 6 (3-11) BUN 28 H (6-23) mg/dl Creatinine 1.36 (0.6-1.4) mg/dl Est Cr Clr Drug Dosing 58.6 ml/min Est GFR ( Amer) 59.8 ml/min Est GFR (Non-Af Amer) 51.6 ml/min BUN/Creatinine Ratio 20.6 H (10-20) Glucose 188 H (70-99(Fasting)) mg/dl POC Glucose (70-99) mg/dl Calcium 7.7 L (8.5-10.1) mg/dl Magnesium 1.7 (1.7-2.4) mg/dl Albumin (3.4-5.0) gm/dl TSH 1.006 (0.300-4.500) uIu/ml Stl C. diff Tox B Gene (Neg) 11/01/21 10/31/21 10/31/21 Range/Units 05:52 20:17 19:40 WBC 7.11 (4.8-10.8) K/uL RBC 3.39 L (4.7-6.1) M/uL Hgb 9.2 L (14.0-18.0) g/dL Hct 29.1 L (42-52) % MCV 85.8 (80-100) fL MCH 27.1 (25-34) pg MCHC 31.6 L (32-36) g/dL RDW Std Deviation 49.9 H (36.4-46.3) fL RDW Coeff of Rea 16.1 H (11.5-14.5) % Plt Count 199 (130-400) K/uL MPV 8.7 (7.4-10.4) fL Immature Gran % (Auto) 1.1 % Neut % (Auto) 73.2 % Lymph % (Auto) 14.8 % Baker % (Auto) 7.7 % Eos % (Auto) 3.1 % Baso % (Auto) 0.1 % Neut # (Auto) 5.20 (1.4-6.5) K/uL Lymph # (Auto) 1.05 L (1.2-3.4) K/uL Baker # (Auto) 0.55 (0.11-0.59) K/uL Eos # (Auto) 0.22 (0-0.5) K/uL Baso # (Auto) 0.01 (0-0.2) K/uL Immature Gran # (Auto) 0.08 H (0.00-0.02) K/uL APTT (21.0-31.0) Seconds PTT Ratio Sodium (136-145) mmol/L Potassium (3.5-5.1) mmol/L Chloride (98-107) mmol/L Carbon Dioxide (21-32) mmol/L Anion Gap (3-11) BUN (6-23) mg/dl Creatinine (0.6-1.4) mg/dl Est Cr Clr Drug Dosing ml/min Est GFR ( Amer) ml/min Est GFR (Non-Af Amer) ml/min BUN/Creatinine Ratio (10-20) Glucose (70-99(Fasting)) mg/dl POC Glucose 141 H 149 H (70-99) mg/dl Calcium (8.5-10.1) mg/dl Magnesium (1.7-2.4) mg/dl Albumin (3.4-5.0) gm/dl TSH (0.300-4.500) uIu/ml Stl C. diff Tox B Gene (Neg) 10/31/21 10/31/21 Range/Units 16:35 11:39 WBC (4.8-10.8) K/uL RBC (4.7-6.1) M/uL Hgb (14.0-18.0) g/dL Hct (42-52) % MCV (80-100) fL MCH (25-34) pg MCHC (32-36) g/dL RDW Std Deviation (36.4-46.3) fL RDW Coeff of Rea (11.5-14.5) % Plt Count (130-400) K/uL MPV (7.4-10.4) fL Immature Gran % (Auto) % Neut % (Auto) % Lymph % (Auto) % Baker % (Auto) % Eos % (Auto) % Baso % (Auto) % Neut # (Auto) (1.4-6.5) K/uL Lymph # (Auto) (1.2-3.4) K/uL Baker # (Auto) (0.11-0.59) K/uL Eos # (Auto) (0-0.5) K/uL Baso # (Auto) (0-0.2) K/uL Immature Gran # (Auto) (0.00-0.02) K/uL APTT (21.0-31.0) Seconds PTT Ratio Sodium (136-145) mmol/L Potassium (3.5-5.1) mmol/L Chloride (98-107) mmol/L Carbon Dioxide (21-32) mmol/L Anion Gap (3-11) BUN (6-23) mg/dl Creatinine (0.6-1.4) mg/dl Est Cr Clr Drug Dosing ml/min Est GFR ( Amer) ml/min Est GFR (Non-Af Amer) ml/min BUN/Creatinine Ratio (10-20) Glucose (70-99(Fasting)) mg/dl POC Glucose 193 H 216 H (70-99) mg/dl Calcium (8.5-10.1) mg/dl Magnesium (1.7-2.4) mg/dl Albumin (3.4-5.0) gm/dl TSH (0.300-4.500) uIu/ml Stl C. diff Tox B Gene (Neg) Diagnostic Findings EKG this morning, 11/01/21: Atrial fibrillation with rapid ventricular response Non specific conduction delay, possible LBBB pattern. Compared with prior EKG, afib has replaced NSR. Outpatient Echo report reviewed dated Aug 2021: Interpretation Summary The examination is adequate to evaluate the referral indication. The qualitative LV ejection fraction is 55-59% (normal). The LV wall thickness is mildly increased (concentric). The left ventricular wall motion is normal. Mild tricuspid regurgitation is present. There is no evidence of pulmonary hypertension. No significant valvular disease is present. Outpatient holter monitor reviewed dated Aug 2021: 1. Duration - 24 hours 2. Quality - good 3. Dominant rhythm - sinus 4. PACs - none 5. PVCs - rare 6. Symptoms - correlated with sinus rhythm No sustained arrhythmias. Avg. Heart Rate: 74 Max. Heart Rate: 103 Min. Heart Rate: 59 Outpatient EKG from 08/24/21: Normal sinus rhythm Right bundle branch block Left anterior fascicular block Bifascicular block Left ventricular hypertrophy with secondary repolarization abnormality Abnormal ECG No previous ECGs available Medications Administered Current Inpatient Medications Acetaminophen (Acetaminophen 325 Mg Tab) 650 mg PO Q6H PRN PRN Reason: Fever/pain Stop: 11/29/21 00:04 Last Admin: 10/30/21 08:24 Dose: 650 mg Documented by: Albuterol (Albuterol Hfa 8 Gm Inhaler) 1 puffs INH TID PRN PRN Reason: shortness of breath or wheezing Stop: 11/25/21 17:54 Dextrose (Dextrose 50% 50 Ml Syringe) 25 - 50 ml IV UD PRN; Protocol PRN Reason: Hypoglycemia Protocol Stop: 11/25/21 17:54 Glucagon (Glucagon For Inj 1 Mg Vial) 1 mg SQ UD PRN; Protocol PRN Reason: Hypoglycemia Protocol Stop: 11/25/21 17:54 Glucose (Glucose 10 Tabs/Tube) 4 - 8 tabs PO UD PRN; Protocol PRN Reason: Hypoglycemia Protocol Stop: 11/25/21 17:54 Glucose (Glucose 40% Gel 15 Gm Tube) 15 - 30 gm PO UD PRN; Protocol PRN Reason: Hypoglycemia Protocol Stop: 11/25/21 17:54 Heparin Sodium (Porcine) (Heparin Sod 5,000 Unit/0.5 Ml Vial) 5,000 units SQ Q12 DEVIN Stop: 11/29/21 08:59 Last Admin: 10/31/21 20:35 Dose: 5,000 units Documented by: Sodium Chloride (Nss 1000ml) 1,000 mls @ 15 mls/hr IV .Q24H DEVIN Stop: 11/09/21 17:55 Last Infusion: 10/29/21 05:53 Dose: Infused Documented by: Magnesium Sulfate/Dextrose (Magnesium Sulfate / D5w) 1 gm in 100 mls @ 50 mls/hr IV ONE ONE Stop: 11/01/21 08:43 Last Admin: 11/01/21 08:31 Dose: 50 mls/hr Documented by: Insulin Aspart (Insulin Aspart Per Unit) 0 units SC ACHS [facility] Stop: 11/28/21 16:29 Last Admin: 10/31/21 20:35 Dose: 1 units Documented by: Insulin Glargine (Insulin Glargine Solostar 100 Units/Ml 3 Ml Pen) 0 units SC HS [facility]; Protocol Stop: 11/29/21 20:59 Last Admin: 10/31/21 20:36 Dose: Not Given Documented by: Insulin Glargine (Insulin Glargine Solostar 100 Units/Ml 3 Ml Pen) 25 units SC DAILY [facility] Stop: 11/30/21 08:59 Last Admin: 10/31/21 08:47 Dose: 25 units Documented by: Insulin Glargine (Insulin Glargine Solostar 100 Units/Ml 3 Ml Pen) 30 units SC DAILY [facility] Stop: 11/01/21 11:00 Metoprolol Tartrate (Metoprolol Tartrate 25 Mg Tab) 25 mg PO BID [facility] Stop: 12/01/21 20:59 Miscellaneous (Carbohydrates For Hypoglycemia ) 15 - 30 gm PO UD PRN PRN Reason: Hypoglycemia Protocol Stop: 11/25/21 17:54 Miscellaneous Information (Pharmacy Glycemic Mgmt Consult) 1 ea N/A UD PRN PRN Reason: Consult Stop: 11/27/21 08:37 Morphine Sulfate (Morphine Sulfate Medical Genetics Director 30 Mg/30 Ml) 30 mg IV PRN PRN; Protocol PRN Reason: EDUCATION TRAINER Pain Titration Stop: 11/09/21 17:54 Last Admin: 10/29/21 02:00 Dose: 30 mg Documented by: Naloxone HCl (Naloxone Hcl 0.4 Mg/1 Ml Vial/Carp) 0.1 mg IV Q5M PRN; Protocol PRN Reason: Oversedation/Resp Depression Stop: 11/09/21 17:54 Ondansetron HCl (Ondansetron Inj 2 Mg/Ml 2 Ml Vial) 4 mg IV Q4H PRN PRN Reason: Nausea And Vomiting Stop: 11/25/21 17:54 Last Admin: 10/31/21 09:23 Dose: 4 mg Documented by: Oxycodone/Acetaminophen (Oxycodone/Acetaminophen 5mg/325mg Tab) 1 tab PO Q4H PRN PRN Reason: Pain Stop: 11/13/21 07:48
[2021-11-01] MEDS ORDERED: INSULIN GLARGINE SOLOSTAR 100 UNITS/ML 3 ML PEN SC SCH (09:00)
[2021-11-01] MEDS: HEPARIN SOD 5,000 UNIT/0.5 ML VIAL SQ SCH ×2 (09:11→20:50)
[2021-11-01] MEDS: INSULIN ASPART PER UNIT SC SCH ×4 (09:25→20:50)
--- NOTE | 2021-11-01 09:26 | Surgery Progress Note ---
Date of Service November 01, 2021 Assessment & Plan (1) Colon cancer: Plan: POD#6 laparoscopic R colon resection, umbilical hernia repair labs stable consider advancing diet await cardiology recs Admission and Anticipated Discharge Date Admission Date: October 26, 2021 Supervising Physician Co-Signing Physician Notes Patient is resting quietly hungry waiting for lunch He states he moves his bowel almost every time he gets up although not really documented by the nurses notes The abdomen is much softer than yesterday he has moderate amount of ecchymosis in both lower quadrants and flank most likely from the heparin injection patient has a very thin abdominal wall the incision is solid there is no drainage appreciated Yesterday diuresis was instituted and is responding appropriately Off-and-on has been in atrial fib although he is remained normotensive We will increase his diet today The path report is still pending Subjective new onset A-fib overnight, loose BMs yesterday but more formed today, more flatus, not sleeping well Physical Exam Constitutional: WD/WN, vitals as above Gastrointestinal (Abdomen): Inspection/Auscultation: + abdomen distended and + abdominal surgical incision (some bloody drainage lower opening from andreia, no erythema) Results & Data ([facility]) Vital Signs (Past 12 Hours) Vital Signs Temp Pulse Pulse Resp BP BP Pulse Ox 11/01/21 07:43 36.9 C 59 L 19 117/63 98 11/01/21 05:14 140 H 18 126/72 98 11/01/21 04:19 36.7 C 55 L 20 128/66 97 11/01/21 02:52 36.7 C 63 16 157/70 H 98 10/31/21 23:10 65 16 144/68 H 98 10/31/21 22:20 60 PG Care Time/CCT Total # of Minutes Spent Total Time Spent with Patient: Total time spent is greater than 50% in coordination of care (as documented) at patient's floor/unit and/or counseling patient: Coding Level of Care Code None Diagnoses Colon cancer C18.9
--- NOTE | 2021-11-01 11:23 | Hospitalist Progress Note ---
Date of Service November 01, 2021 Assessment & Plan (1) Colon cancer: Plan: S/P day #6 Laparoscopic Assisted Colon Resection, Umbilical Hernia Repair performed by Dr. Arnol MD Distended air-filled loops of large and small bowel are suggestive of posto perative ileus. Had post op ileus NG tube was discontinued on 10/29 Tolerating diet advancement well per Primary surgical team Paroxysmal Atrial Fibrillation Patient has been flipping in and out of Afib Cardiology consult Not a candidate for anticoagulation at this time in view of recent surgery but will defer to Cardiology on this Continue po metoprolol DM type 2 Most recent hemoglobin A1c 8.7 Continue to hold PO diabetic med Continue Lantus and insulin sliding scale Continue monitor blood sugar CKD stage III Creatinine 1.3 Continue monitor BMP DVT prophylaxis on heparin subcu CODE STATUS full code Admission and Anticipated Discharge Date Admission Date: October 26, 2021 Subjective Patient seen and examined. Reported some nausea and one episode of loose stool this morning. Denies any abdominal pain, vomiting. Reports appetite is fair. Denies any chest pain, cough, shortness of breath, palpitations Denies any dizziness Denies any fevers, chills Physical Exam Constitutional: + well hydrated and + obese; no acute distress Eyes: PERRL, conjunctivae normal, anicteric sclerae ENMT: external ear and nose normal, oropharynx normal Respiratory: normal respiratory effort, lungs clear to auscultation Cardiovascular: Rate/Rhythm: + irregularly irregular S1 S2 Gastrointestinal (Abdomen): Clean dressing over surgical site +BS Musculoskeletal: No edema Neurologic: PERRL, EOMI, accommodation nl, no face palsy, no dysarthria Psychiatric: A+Ox3, euthymic affect Results & Data Results & Data ([facility]) Vital Signs (Past 12 Hours) Vital Signs Temp Pulse Resp BP BP Pulse Ox 11/01/21 07:43 36.9 C 59 L 19 117/63 98 11/01/21 05:14 140 H 18 126/72 98 11/01/21 04:19 36.7 C 55 L 20 128/66 97 11/01/21 02:52 36.7 C 63 16 157/70 H 98 Laboratory Results Abnormal lab results 10/31/21 10/31/21 10/31/21 Range/Units 16:35 19:40 20:17 RBC (4.7-6.1) M/uL Hgb (14.0-18.0) g/dL Hct (42-52) % MCHC (32-36) g/dL RDW Std Deviation (36.4-46.3) fL RDW Coeff of Rea (11.5-14.5) % Lymph # (Auto) (1.2-3.4) K/uL Immature Gran # (Auto) (0.00-0.02) K/uL BUN (6-23) mg/dl BUN/Creatinine Ratio (10-20) Glucose (70-99(Fasting)) mg/dl POC Glucose 193 H 149 H 141 H (70-99) mg/dl Calcium (8.5-10.1) mg/dl Albumin (3.4-5.0) gm/dl 11/01/21 11/01/21 11/01/21 Range/Units 05:52 05:52 05:52 RBC 3.39 L (4.7-6.1) M/uL Hgb 9.2 L (14.0-18.0) g/dL Hct 29.1 L (42-52) % MCHC 31.6 L (32-36) g/dL RDW Std Deviation 49.9 H (36.4-46.3) fL RDW Coeff of Rea 16.1 H (11.5-14.5) % Lymph # (Auto) 1.05 L (1.2-3.4) K/uL Immature Gran # (Auto) 0.08 H (0.00-0.02) K/uL BUN 28 H (6-23) mg/dl BUN/Creatinine Ratio 20.6 H (10-20) Glucose 188 H (70-99(Fasting)) mg/dl POC Glucose (70-99) mg/dl Calcium 7.7 L (8.5-10.1) mg/dl Albumin 2.8 L (3.4-5.0) gm/dl 11/01/21 11/01/21 11/01/21 Range/Units 07:10 11:20 16:12 RBC (4.7-6.1) M/uL Hgb (14.0-18.0) g/dL Hct (42-52) % MCHC (32-36) g/dL RDW Std Deviation (36.4-46.3) fL RDW Coeff of Rea (11.5-14.5) % Lymph # (Auto) (1.2-3.4) K/uL Immature Gran # (Auto) (0.00-0.02) K/uL BUN (6-23) mg/dl BUN/Creatinine Ratio (10-20) Glucose (70-99(Fasting)) mg/dl POC Glucose 197 H 211 H 133 H (70-99) mg/dl Calcium (8.5-10.1) mg/dl Albumin (3.4-5.0) gm/dl
[2021-11-01] MEDS: oxyCODONE/ACETAMINOPHEN 5mg/325mg TAB PO PRN (14:01)
--- NOTE | 2021-11-01 14:17 | Electrocardiogram Report ---
Test Reason : Blood Pressure : / mmHG Vent. Rate : 114 BPM Atrial Rate : 115 BPM P-R Int : 000 ms QRS Dur : 144 ms QT Int : 372 ms P-R-T Axes : 000 259 090 degrees QTc Int : 512 ms Sinus rhythm with frequent and consecutive premature atrial beats, including a run of PAT Non-specific intra-ventricular conduction block Possible Lateral infarct , age undetermined Abnormal ECG When compared with ECG of 17-DEC-2019 15:21, Premature atrial complexes are now Present Vent. rate has increased BY 45 BPM QRS duration has increased Borderline criteria for Lateral infarct are now Present Confirmed by Efren Cabrera ([id number]) on 11/01/2021 2:17:09 PM Referred By: Singh Ambrose Confirmed By:Efren Cabrera
--- NOTE | 2021-11-01 15:13 | Pharmacy Report ---
Pharmacy Glycemic Short Note 2 - Date of Service November 01, 2021 - Glycemic Short BSG Results (Last 24 hours): 10/31/21 10/31/21 10/31/21 16:35 19:40 20:17 Glucose POC Glucose 193 H 149 H 141 H 11/01/21 11/01/21 11/01/21 05:52 07:10 11:20 Glucose 188 H POC Glucose 197 H 211 H OUTPATIENT ANTIDIABETIC REGIMEN: * Lantus 60 units qAM + 36 units qPM * Alogliptin 12.5 mg PO daily * metformin 1000 mg BIDM * Jardiance 10 mg daily ASSESSMENT: 11/01/21: * Patient received a total of 46 units yesterday with poor glycemic control * Fasting BSG of 197 mg/dL. The past two days patient has received no basal insulin at bedtime due to BSG at goal. Will remove zero dose from scale so that he receives a minimum of 5 units HS. * Tighten correction factor. 10/31/21 * Patient received total of 35 units yesterday, of which 20 units were basal insulin * PO intake still poorer yesterday, had scaled back on basal yesterday due to concerns of decreased PO intake * Fasting BSG 194 mg/dL - plan to titrate up to 25 units of basal for this morning, may add small scale for HS 10/30/21 * Patient received total of 68 units of insulin today, of which 35 units were basal insulin * Fasting BSG 220 mg/dL - estimated total basal likely closer to 40 units daily, plan to give 20 units basal for this morning * Started on clear diet yesterday, however today no documentation of oral intake noted for breakfast and lunch. Will plan to add scale on for HS time as it is unclear if patient will be eating or not. Plan to scale back from previous day of 35 units total of basal in case patient is NPO today 10/29/21 * Patient's BSGs yesterday were [phone] mg/dL and fasting this morning was 198 mg/dL. * Increase basal to 10 units (approximately what patient received yesterday- received total of 11 units of insulin yesterday with 5 units of basal and 6 units of bolus). * Tighten Novolog to provide stronger CF. Background * Mr Boykin is a 71 y/o M with a PMH of T2DM who presents s/p surgery for colon cancer. * Patient's BSGs yesterday were [phone] mg/dL. Fasting today is 168 mg/dL. * Patient received 11 units of insulin yesterday (5 units of basal and 6 units of bolus). * Patient is going into the third full day of NPO status so expect glycogen levels to see be depleted. * Continue current regimen as all BSGs less than 180 mg/dL. PLAN FOR INPATIENT GLYCEMIC CONTROL: * Hold outpatient oral diabetes medications * Basal insulin * Lantus 30 units QAM * Lantus 5-10 units QPM depending on BSG value * Bolus insulin * NovoLog per scale ACHS or Q6hrs while NPO * Goal Range: Low 110 mg/dL - High 140 mg/dL * Correction Factor: 12 mg/dL/unit * Nutritional / Prandial insulin per carb ratio of 1 unit per 5 grams CHO consumed PLAN FOR DISCHARGE: * A1c 8.7% - insulin requirements during hospital stay much less than outpatient needs. Will continue to follow to determine if continuation of outpatient regimen is appropriate
[2021-11-01] MEDS ORDERED: MELATONIN 3 MG TAB PO PRN (16:27)
[2021-11-01] MEDS: METOPROLOL TARTRATE 25 MG TAB PO SCH (20:50)
[2021-11-01] MEDS: INSULIN GLARGINE SOLOSTAR 100 UNITS/ML 3 ML PEN SC SCH (20:52)
[2021-11-01] MEDS: ACETAMINOPHEN 325 MG TAB PO PRN (20:52)
[2021-11-02 07:45] LABS: Basophils # (auto) 0.04 K/uL (0-0.2); Basophils % (auto) 0.5 %; Eosinophils # (auto) 0.23 K/uL (0-0.5); Eosinophils % (auto) 2.8 %; Hematocrit (blood only) 30.6 % (42-52); Hemoglobin 9.6 g/dL (14.0-18.0); Immature Granulocytes # (auto) 0.14 K/uL (0.00-0.02); Immature Granulocytes % (auto) 1.7 %; Lymphocytes % (auto) 10.8 %; Mean Corpuscular Hgb Conc 31.4 g/dL (32-36); Mean Corpuscular Volume 86.2 fL (80-100); Monocytes # (auto) 0.57 K/uL (0.11-0.59); Monocytes % (auto) 6.9 %; Neutrophils # (auto) 6.43 K/uL (1.4-6.5); Neutrophils % (auto) 77.3 %; Platelet Count 241 K/uL (130-400); RDW Coefficient of Variation 15.9 % (11.5-14.5); RDW Standard Deviation 50.4 fL (36.4-46.3); Red Blood Count 3.55 M/uL (4.7-6.1); White Blood Count 8.31 K/uL (4.8-10.8)
[2021-11-02 08:07] LABS: BUN Creatinine Ratio 18.8 (10-20); Calcium 7.8 mg/dl (8.5-10.1); Creatinine Clr Calc Pharmacy 59.9 ml/min; Est GFR (African American) 61.5 ml/min; Potassium 3.6 mmol/L (3.5-5.1)
[2021-11-02] MEDS: HEPARIN SOD 5,000 UNIT/0.5 ML VIAL SQ SCH (08:19)
[2021-11-02] MEDS: INSULIN GLARGINE SOLOSTAR 100 UNITS/ML 3 ML PEN SC SCH ×2 (08:20→21:15)
[2021-11-02] MEDS: METOPROLOL TARTRATE 25 MG TAB PO SCH ×2 (08:21→22:02)
[2021-11-02] MEDS: INSULIN ASPART PER UNIT SC SCH ×4 (08:23→21:13)
[2021-11-02] MEDS: oxyCODONE/ACETAMINOPHEN 5mg/325mg TAB PO PRN ×3 (08:35→21:12)
--- NOTE | 2021-11-02 09:00 | Electrocardiogram Report ---
Test Reason : Blood Pressure : / mmHG Vent. Rate : 072 BPM Atrial Rate : 072 BPM P-R Int : 200 ms QRS Dur : 150 ms QT Int : 450 ms P-R-T Axes : 000 -77 077 degrees QTc Int : 492 ms Unusual P axis, possible ectopic atrial rhythm with Premature atrial complexes Left axis deviation Left ventricular hypertrophy with QRS widening and repolarization abnormality Abnormal ECG When compared with ECG of 17-DEC-2019 15:21, Premature atrial complexes are now Present Confirmed by Jr Marks ([id number]) on 11/02/2021 9:00:21 AM Referred By: Singh Ambrose Confirmed By:Jr Marks
--- NOTE | 2021-11-02 10:13 | Surgery Progress Note ---
Date of Service November 02, 2021 Assessment & Plan (1) Colon cancer: Plan: POD#7 laparoscopic R colon resection, umbilical hernia repair labs stable d/c planning...? rehab, should be stable for transfer in 1-2 days Admission and Anticipated Discharge Date Admission Date: October 26, 2021 Supervising Physician Co-Signing Physician Notes Presently going to physical therapy has not been up and around much Dick catheter still in place Tolerating diet abdomen much softer moderate amount of bloody drainage from the [place] sites in the subcutaneous tissue in the midline incision Path report was discussed with the patient At this point will plan to remove the Dick catheter in the morning the patient is getting more activity at this time I would like to cut down his heparin every 12 hours to every 24 hours patient has clinically cirrhosis and portal hypertension Subjective tolerating diet, 3 loose BMs today Physical Exam Gastrointestinal (Abdomen): Inspection/Auscultation: + abdomen distended (less), + abdominal wall ecchymosis and + abdominal surgical incision (some bloody drainage from lower andreia opening) Results & Data ([facility]) Vital Signs (Past 12 Hours) Vital Signs Temp Pulse Pulse Resp BP BP Pulse Ox 11/02/21 07:31 37.0 C 64 18 149/72 H 97 11/02/21 06:15 75 11/02/21 04:05 36.8 C 61 16 130/67 99 11/01/21 23:44 36.6 C 55 L 18 121/69 98 11/01/21 23:10 67 PG Care Time/CCT Total # of Minutes Spent Total Time Spent with Patient: Total time spent is greater than 50% in coordination of care (as documented) at patient's floor/unit and/or counseling patient: Coding Level of Care Code None Diagnoses Colon cancer C18.9
--- NOTE | 2021-11-02 10:40 | Cardiology Progress Note ---
Date of Service November 02, 2021 Assessment & Plan (1) Paroxysmal atrial fibrillation: (2) Anemia: (3) Post-operative state: (4) Hypomagnesemia: Plan: Patient here s/p colon resection with post op Ileus. Improved symptoms. Patient developed PAF in the post op setting. Non sustained episodes with HR"s ranging 140-160's. Metoprolol 25 mg BID initiated with improved rhythm control. Currently NSR. Supplement electrolytes, including magnesium. He recently had outpatient monitor without arrhythmias. Will not initiate anticoagulation given recent colon resection and high risk for GI bleeding. Continue Lovenox for DVT proph Case discussed with Dr. Do. Will follow. Admission and Anticipated Discharge Date Admission Date: October 26, 2021 Supervising Physician Co-Signing Physician Notes Supervising Physician Attestation: I have personally performed a history and physical examination on the patient. I agree with the physician secretary administrative assistant's findings and plan as documented. Luisito Do, DO Subjective Patient resting in bed comfortably. He denies acute complaints. No abdominal pain. He Was asymptomatic with recent episodes of PAF. Tolerating low-dose metoprolol without bradycardia arrhythmias. He had 3 nonsustained episodes of atrial fibrillation overnight during presumed sleep. Longest episode lasted approximately 20 seconds. No chest pain or unusual shortness of breath. Review of Systems Review of Systems: All systems reviewed & are unremarkable except as noted in HPI & below Physical Exam Constitutional: WD/WN, vitals as above well nourished and + obese; no acute distress ENMT: external ear and nose normal, oropharynx normal Neck: trachea midline, no thyromegaly Respiratory: normal respiratory effort, lungs clear to auscultation Cardiovascular: Rate/Rhythm: regular rate and regular rhythm Heart Sounds: normal S1 and normal S2; no murmur Vessels: no JVD Extremities: no edema Skin: no rashes, warm and dry Psychiatric: A+Ox3, euthymic affect Results & Data ([facility]) Vital Signs (Past 12 Hours) Vital Signs Temp Pulse Pulse Resp BP BP Pulse Ox 11/02/21 07:31 37.0 C 64 18 149/72 H 97 11/02/21 06:15 75 11/02/21 04:05 36.8 C 61 16 130/67 99 11/01/21 23:44 36.6 C 55 L 18 121/69 98 11/01/21 23:10 67 Laboratory Results 11/02/21 11/02/21 11/02/21 Range/Units 07:05 06:58 06:58 WBC (4.8-10.8) K/uL RBC (4.7-6.1) M/uL Hgb (14.0-18.0) g/dL Hct (42-52) % MCV (80-100) fL MCH (25-34) pg MCHC (32-36) g/dL RDW Std Deviation (36.4-46.3) fL RDW Coeff of Rea (11.5-14.5) % Plt Count (130-400) K/uL MPV (7.4-10.4) fL Immature Gran % (Auto) % Neut % (Auto) % Lymph % (Auto) % [place] % (Auto) % Eos % (Auto) % Baso % (Auto) % Neut # (Auto) (1.4-6.5) K/uL Lymph # (Auto) (1.2-3.4) K/uL [place] # (Auto) (0.11-0.59) K/uL Eos # (Auto) (0-0.5) K/uL Baso # (Auto) (0-0.2) K/uL Immature Gran # (Auto) (0.00-0.02) K/uL Sodium 136 (136-145) mmol/L Potassium 3.6 (3.5-5.1) mmol/L Chloride 103 (98-107) mmol/L Carbon Dioxide 27 (21-32) mmol/L Anion Gap 6 (3-11) BUN 25 H (6-23) mg/dl Creatinine 1.33 (0.6-1.4) mg/dl Est Cr Clr Drug Dosing 59.9 ml/min Est GFR ( Amer) 61.5 ml/min Est GFR (Non-Af Amer) 53.0 ml/min BUN/Creatinine Ratio 18.8 (10-20) Glucose 195 H (70-99(Fasting)) mg/dl POC Glucose 191 H (70-99) mg/dl Calcium 7.8 L (8.5-10.1) mg/dl Magnesium 1.9 (1.7-2.4) mg/dl 11/02/21 11/01/21 11/01/21 Range/Units 06:58 20:45 16:12 WBC 8.31 (4.8-10.8) K/uL RBC 3.55 L (4.7-6.1) M/uL Hgb 9.6 L (14.0-18.0) g/dL Hct 30.6 L (42-52) % MCV 86.2 (80-100) fL MCH 27.0 (25-34) pg MCHC 31.4 L (32-36) g/dL RDW Std Deviation 50.4 H (36.4-46.3) fL RDW Coeff of Rea 15.9 H (11.5-14.5) % Plt Count 241 (130-400) K/uL MPV 9.0 (7.4-10.4) fL Immature Gran % (Auto) 1.7 % Neut % (Auto) 77.3 % Lymph % (Auto) 10.8 % [place] % (Auto) 6.9 % Eos % (Auto) 2.8 % Baso % (Auto) 0.5 % Neut # (Auto) 6.43 (1.4-6.5) K/uL Lymph # (Auto) 0.90 L (1.2-3.4) K/uL [place] # (Auto) 0.57 (0.11-0.59) K/uL Eos # (Auto) 0.23 (0-0.5) K/uL Baso # (Auto) 0.04 (0-0.2) K/uL Immature Gran # (Auto) 0.14 H (0.00-0.02) K/uL Sodium (136-145) mmol/L Potassium (3.5-5.1) mmol/L Chloride (98-107) mmol/L Carbon Dioxide (21-32) mmol/L Anion Gap (3-11) BUN (6-23) mg/dl Creatinine (0.6-1.4) mg/dl Est Cr Clr Drug Dosing ml/min Est GFR ( Amer) ml/min Est GFR (Non-Af Amer) ml/min BUN/Creatinine Ratio (10-20) Glucose (70-99(Fasting)) mg/dl POC Glucose 178 H 133 H (70-99) mg/dl Calcium (8.5-10.1) mg/dl Magnesium (1.7-2.4) mg/dl 11/01/21 Range/Units 11:20 WBC (4.8-10.8) K/uL RBC (4.7-6.1) M/uL Hgb (14.0-18.0) g/dL Hct (42-52) % MCV (80-100) fL MCH (25-34) pg MCHC (32-36) g/dL RDW Std Deviation (36.4-46.3) fL RDW Coeff of Rea (11.5-14.5) % Plt Count (130-400) K/uL MPV (7.4-10.4) fL Immature Gran % (Auto) % Neut % (Auto) % Lymph % (Auto) % [place] % (Auto) % Eos % (Auto) % Baso % (Auto) % Neut # (Auto) (1.4-6.5) K/uL Lymph # (Auto) (1.2-3.4) K/uL [place] # (Auto) (0.11-0.59) K/uL Eos # (Auto) (0-0.5) K/uL Baso # (Auto) (0-0.2) K/uL Immature Gran # (Auto) (0.00-0.02) K/uL Sodium (136-145) mmol/L Potassium (3.5-5.1) mmol/L Chloride (98-107) mmol/L Carbon Dioxide (21-32) mmol/L Anion Gap (3-11) BUN (6-23) mg/dl Creatinine (0.6-1.4) mg/dl Est Cr Clr Drug Dosing ml/min Est GFR ( Amer) ml/min Est GFR (Non-Af Amer) ml/min BUN/Creatinine Ratio (10-20) Glucose (70-99(Fasting)) mg/dl POC Glucose 211 H (70-99) mg/dl Calcium (8.5-10.1) mg/dl Magnesium (1.7-2.4) mg/dl Diagnostic Findings Telemetry reviewed: Predominant rhythm is normal sinus rhythm in the 50 to 70 bpm range. He had 3 nonsustained episodes of atrial tachycardia around 3 AM, 3:34 AM and 3:45 AM. Each episode lasted approximately 10 to 20 seconds. Currently normal sinus rhythm this morning. No bradycardia arrhythmias. EKG reviewed from 11/02/2021: NSR with PAC's LAD LVH with non specific conduction delay. Echocardiogram report reviewed dated 11/01/2021: Sinus rhythm was present during the study. Mild concentric LVH. LV wall motion is normal. Ejection fraction 55 to 60%. Left atrial size is normal. Grade 1 diastolic dysfunction. No significant valvular heart disease. Medications Administered Current Inpatient Medications Acetaminophen (Acetaminophen 325 Mg Tab) 650 mg PO Q6H PRN PRN Reason: Fever/pain Stop: 11/29/21 00:04 Last Admin: 11/01/21 20:52 Dose: 650 mg Documented by: Albuterol (Albuterol Hfa 8 Gm Inhaler) 1 puffs INH TID PRN PRN Reason: shortness of breath or wheezing Stop: 11/25/21 17:54 Dextrose (Dextrose 50% 50 Ml Syringe) 25 - 50 ml IV UD PRN; Protocol PRN Reason: Hypoglycemia Protocol Stop: 11/25/21 17:54 Glucagon (Glucagon For Inj 1 Mg Vial) 1 mg SQ UD PRN; Protocol PRN Reason: Hypoglycemia Protocol Stop: 11/25/21 17:54 Glucose (Glucose 10 Tabs/Tube) 4 - 8 tabs PO UD PRN; Protocol PRN Reason: Hypoglycemia Protocol Stop: 11/25/21 17:54 Glucose (Glucose 40% Gel 15 Gm Tube) 15 - 30 gm PO UD PRN; Protocol PRN Reason: Hypoglycemia Protocol Stop: 11/25/21 17:54 Heparin Sodium (Porcine) (Heparin Sod 5,000 Unit/0.5 Ml Vial) 5,000 units SQ Q12 DEVIN Stop: 11/29/21 08:59 Last Admin: 11/02/21 08:19 Dose: 5,000 units Documented by: Sodium Chloride (Nss 1000ml) 1,000 mls @ 15 mls/hr IV .Q24H DEVIN Stop: 11/09/21 17:55 Last Infusion: 10/29/21 05:53 Dose: Infused Documented by: Insulin Aspart (Insulin Aspart Per Unit) 0 units SC ACHS DEVIN Stop: 11/28/21 16:29 Last Admin: 11/02/21 08:23 Dose: 13 units Documented by: Insulin Glargine (Insulin Glargine Solostar 100 Units/Ml 3 Ml Pen) 0 units SC HS DEVIN; Protocol Stop: 11/29/21 20:59 Last Admin: 11/01/21 20:52 Dose: 10 units Documented by: Insulin Glargine (Insulin Glargine Solostar 100 Units/Ml 3 Ml Pen) 25 units SC DAILY DEVIN Stop: 11/30/21 08:59 Last Admin: 11/02/21 08:20 Dose: 25 units Documented by: Lorazepam (Lorazepam 1 Mg Tab) 1 mg PO Q4H PRN PRN Reason: Anxiety Stop: 12/01/21 09:33 Melatonin (Melatonin 3 Mg Tab) 3 mg PO HS PRN PRN Reason: Sleep Stop: 12/01/21 16:26 Metoprolol Tartrate (Metoprolol Tartrate 25 Mg Tab) 25 mg PO BID DEVIN Stop: 12/01/21 20:59 Last Admin: 11/02/21 08:21 Dose: 25 mg Documented by: Miscellaneous (Carbohydrates For Hypoglycemia ) 15 - 30 gm PO UD PRN PRN Reason: Hypoglycemia Protocol Stop: 11/25/21 17:54 Miscellaneous Information (Pharmacy Glycemic Mgmt Consult) 1 ea N/A UD PRN PRN Reason: Consult Stop: 11/27/21 08:37 Morphine Sulfate (Morphine Sulfate [employer] T[employer] 30 Mg/30 Ml) 30 mg IV PRN PRN; Protocol PRN Reason: [employer] Pain Titration Stop: 11/09/21 17:54 Last Admin: 10/29/21 02:00 Dose: 30 mg Documented by: Naloxone HCl (Naloxone Hcl 0.4 Mg/1 Ml Vial/Carp) 0.1 mg IV Q5M PRN; Protocol PRN Reason: Oversedation/Resp Depression Stop: 11/09/21 17:54 Ondansetron HCl (Ondansetron Inj 2 Mg/Ml 2 Ml Vial) 4 mg IV Q4H PRN PRN Reason: Nausea And Vomiting Stop: 11/25/21 17:54 Last Admin: 10/31/21 09:23 Dose: 4 mg Documented by: Oxycodone/Acetaminophen (Oxycodone/Acetaminophen 5mg/325mg Tab) 1 tab PO Q4H PRN PRN Reason: Pain Stop: 11/13/21 07:48 Last Admin: 11/02/21 08:35 Dose: 1 tab Documented by:
--- NOTE | 2021-11-02 10:44 | Hospitalist Progress Note ---
Date of Service November 02, 2021 Assessment & Plan (1) Colon cancer: Plan: S/P day #7 Laparoscopic Assisted Colon Resection, Umbilical Hernia Repair performed by Dr. Arnol MD Distended air-filled loops of large and small bowel are suggestive of posto perative ileus. Had post op ileus NG tube was discontinued on 10/29 Tolerating diet advancement well per Primary surgical team Recommend to dc alberto Paroxysmal Atrial Fibrillation Cardiology on board Not a candidate for anticoagulation at this time in view of recent surgery but will defer to Cardiology on this Continue po metoprolol. Currently sinus and less dysrhythmia on tele DM type 2 Most recent hemoglobin A1c 8.7 Continue to hold PO diabetic med Continue Lantus and insulin sliding scale Continue monitor blood sugar CKD stage III Creatinine 1.33 Continue monitor BMP DVT prophylaxis on heparin subcu CODE STATUS full code Admission and Anticipated Discharge Date Admission Date: October 26, 2021 Subjective Patient seen and examined No nausea Reported some loose stool this morning Tolerating diet well Denies any abdominal pain, vomiting. Denies any chest pain, cough, shortness of breath, palpitations Denies any fevers, chills Physical Exam Constitutional: + well hydrated and + obese; no acute distress Eyes: PERRL, conjunctivae normal, anicteric sclerae ENMT: external ear and nose normal, oropharynx normal Respiratory: normal respiratory effort, lungs clear to auscultation Cardiovascular: Rate/Rhythm: + irregularly irregular S1 S2 Gastrointestinal (Abdomen): Clean dressing, soft, nontender +BS Some ecchymoses around sq heparin inj sites Neurologic: PERRL, EOMI, accommodation nl, no face palsy, no dysarthria Psychiatric: A+Ox3, euthymic affect Results & Data Results & Data ([facility]) Vital Signs (Past 12 Hours) Vital Signs Temp Pulse Pulse Resp BP BP Pulse Ox 11/02/21 07:31 37.0 C 64 18 149/72 H 97 11/02/21 06:15 75 11/02/21 04:05 36.8 C 61 16 130/67 99 11/01/21 23:44 36.6 C 55 L 18 121/69 98 11/01/21 23:10 67 Laboratory Results Abnormal lab results 11/01/21 11/01/21 11/02/21 Range/Units 16:12 20:45 06:58 RBC 3.55 L (4.7-6.1) M/uL Hgb 9.6 L (14.0-18.0) g/dL Hct 30.6 L (42-52) % MCHC 31.4 L (32-36) g/dL RDW Std Deviation 50.4 H (36.4-46.3) fL RDW Coeff of Rea 15.9 H (11.5-14.5) % Lymph # (Auto) 0.90 L (1.2-3.4) K/uL Immature Gran # (Auto) 0.14 H (0.00-0.02) K/uL BUN (6-23) mg/dl Glucose (70-99(Fasting)) mg/dl POC Glucose 133 H 178 H (70-99) mg/dl Calcium (8.5-10.1) mg/dl 11/02/21 11/02/21 11/02/21 Range/Units 06:58 07:05 11:25 RBC (4.7-6.1) M/uL Hgb (14.0-18.0) g/dL Hct (42-52) % MCHC (32-36) g/dL RDW Std Deviation (36.4-46.3) fL RDW Coeff of Rea (11.5-14.5) % Lymph # (Auto) (1.2-3.4) K/uL Immature Gran # (Auto) (0.00-0.02) K/uL BUN 25 H (6-23) mg/dl Glucose 195 H (70-99(Fasting)) mg/dl POC Glucose 191 H 170 H (70-99) mg/dl Calcium 7.8 L (8.5-10.1) mg/dl
[2021-11-02] MEDS: LORazepam 1 MG TAB PO PRN (21:12)
[2021-11-03 08:02] LABS: BUN Creatinine Ratio 20.4 (10-20); Calcium 8.6 mg/dl (8.5-10.1); Creatinine Clr Calc Pharmacy 57.3 ml/min; Est GFR (African American) 56.8 ml/min
--- NOTE | 2021-11-03 08:40 | Surgery Progress Note ---
Date of Service November 03, 2021 Assessment & Plan (1) Colon cancer: Plan: POD#7 laparoscopic R colon resection, umbilical hernia repair bladder scan, may need alberto replaced although he doesn't want it will probe incision when back in bed Plan: Patient has moderate amount of drainage serosanguineous inferior aspect of the incision The abdomen is distended pretty much unchanged the patient has very thin abdominal wall unable to appreciate the induration along the incision which feels intact and most inferior aspect where the Tavo drain came out from the subcu there is moderate amount of serous drainage Discussed with the patient regarding the drainage one of the issues could be that the fascia is not intact but at this time clinically it feels completely intact there is no much to probe the event that effect will apply an abdominal binder and monitor him closely regarding possibility of local wound dehiscence Addendum we obtained a CAT scan of the abdomen this morning and I just reviewed it with the radiologist there is no sign of wound dehiscence intra-abdominally or amount of colonic small bowel distention as she had had although his GI function is appears to be returning Discussed the results with the patient we will restart him on a diet keep an abdominal binder on and monitor his fluid status noting that his creatinine is slightly elevated this morning although the catheter was removed yesterday evening in the past week until the patient appears to be voiding fine bladder scan was try to obtain but due to his body habitus it was nonconclusive Dr. Sharp will be covering this weekend Admission and Anticipated Discharge Date Admission Date: October 26, 2021 Supervising Physician Co-Signing Physician Notes Supervising Physician Attestation: I have personally performed a history and physical examination on the patient. I agree with the physician assistant cross country coach's findings and plan as documented. Luisito Do, DO Subjective sitting up for breakfast, 3 BMs yesterday, bandage changed several times, alberto was removed last evening as it was leaking and burning, now having incontinence Physical Exam 2 Gastrointestinal (Abdomen): Inspection/Auscultation: + abdomen distended (less) and + abdominal surgical incision (some shadowing on dressing) Percussion/Palpation: abdomen soft Results & Data ([facility]) Vital Signs (Past 12 Hours) Vital Signs Temp Pulse Pulse Pulse Resp BP Pulse Ox 11/03/21 03:54 36.6 C 64 18 126/70 92 11/03/21 02:14 74 11/02/21 23:11 36.8 C 68 20 101/60 92 PG Care Time/CCT Total # of Minutes Spent Total Time Spent with Patient: Total time spent is greater than 50% in coordination of care (as documented) at patient's floor/unit and/or counseling patient: Coding Level of Care Code None Diagnoses Colon cancer C18.9
[2021-11-03] MEDS: oxyCODONE/ACETAMINOPHEN 5mg/325mg TAB PO PRN ×3 (09:00→22:02)
[2021-11-03] MEDS ORDERED: INSULIN GLARGINE SOLOSTAR 100 UNITS/ML 3 ML PEN SC SCH ×2 (09:00)
[2021-11-03] MEDS: INSULIN ASPART PER UNIT SC SCH ×4 (09:00→20:32)
[2021-11-03] MEDS: HEPARIN SOD 5,000 UNIT/0.5 ML VIAL SQ SCH (09:02)
[2021-11-03] MEDS: METOPROLOL TARTRATE 25 MG TAB PO SCH ×2 (09:03→21:56)
--- NOTE | 2021-11-03 10:19 | Cardiology Progress Note ---
Date of Service November 03, 2021 Assessment & Plan (1) Paroxysmal atrial fibrillation: (2) Anemia: (3) Post-operative state: (4) Hypomagnesemia: Plan: Patient here s/p colon resection with post op Ileus. Improved symptoms. Now having incisional drainage. Monitored closely by surgical team. Patient developed PAF in the post op setting. Non sustained episodes with HR"s ranging 140-160's. Metoprolol 25 mg BID initiated with improved rhythm control. Currently NSR. Supplement electrolytes, including magnesium. He recently had outpatient monitor without arrhythmias. Will not initiate anticoagulation given recent colon resection and high risk for GI bleeding. He does take ASA 81 mg daily as an outpatient and this should be resumed when acceptable from surgical standpoint. Continue Lovenox for DVT proph Case discussed with Dr. Do. Will sign off. Please notify ground operations supervisor briquetter operator if there are additional questions or concerns. Admission and Anticipated Discharge Date Admission Date: October 26, 2021 Supervising Physician Co-Signing Physician Notes Supervising Physician Attestation: I have personally performed a history and physical examination on the patient. I agree with the physician certified medical assistant's findings and plan as documented with the following additions. Telemetry reveals sinus rhythm with PACs. Continue metoprolol tartrate 25 mg twice daily. Resume aspirin when reasonable from a postoperative standpoint Continue subcutaneous heparin for DVT prophylaxis. Luisito Do, DO Subjective Patient resting in bed comfortably. Notes ongoing abdominal distention. Surgery notes reviewed and having drainage from incisional site that needs monitored. No arrhythmias on telemetry. He denies chest pain/dyspnea or palpitations. Tolerating metoprolol. Review of Systems Review of Systems: All systems reviewed & are unremarkable except as noted in HPI & below Physical Exam Constitutional: WD/WN, vitals as above well nourished and + obese; no acute distress ENMT: external ear and nose normal, oropharynx normal Neck: trachea midline, no thyromegaly Respiratory: normal respiratory effort, lungs clear to auscultation Cardiovascular: Rate/Rhythm: regular rate and regular rhythm Heart Sounds: normal S1 and normal S2; no murmur Vessels: no JVD Extremities: no edema Skin: no rashes, warm and dry Psychiatric: A+Ox3, euthymic affect Results & Data ([facility]) Vital Signs (Past 12 Hours) Vital Signs Temp Pulse Pulse Pulse Resp BP Pulse Ox 11/03/21 08:51 36.8 C 74 18 132/63 97 11/03/21 03:54 36.6 C 64 18 126/70 92 11/03/21 02:14 74 11/02/21 23:11 36.8 C 68 20 101/60 92 Laboratory Results 11/03/21 11/03/21 11/02/21 Range/Units 07:29 06:48 20:07 Sodium 136 (136-145) mmol/L Potassium 4.0 (3.5-5.1) mmol/L Chloride 101 (98-107) mmol/L Carbon Dioxide 28 (21-32) mmol/L Anion Gap 7 (3-11) BUN 29 H (6-23) mg/dl Creatinine 1.42 H (0.6-1.4) mg/dl Est Cr Clr Drug Dosing 57.3 ml/min Est GFR ( Amer) 56.8 ml/min Est GFR (Non-Af Amer) 49.0 ml/min BUN/Creatinine Ratio 20.4 H (10-20) Glucose 188 H (70-99(Fasting)) mg/dl POC Glucose 207 H 187 H (70-99) mg/dl Calcium 8.6 (8.5-10.1) mg/dl 11/02/21 11/02/21 Range/Units 16:32 11:25 Sodium (136-145) mmol/L Potassium (3.5-5.1) mmol/L Chloride (98-107) mmol/L Carbon Dioxide (21-32) mmol/L Anion Gap (3-11) BUN (6-23) mg/dl Creatinine (0.6-1.4) mg/dl Est Cr Clr Drug Dosing ml/min Est GFR ( Amer) ml/min Est GFR (Non-Af Amer) ml/min BUN/Creatinine Ratio (10-20) Glucose (70-99(Fasting)) mg/dl POC Glucose 139 H 170 H (70-99) mg/dl Calcium (8.5-10.1) mg/dl Diagnostic Findings Telemetry reviewed - NSR, no recurrent atrial fib or atrial tach in the last 24 hours. No bradycardia with the metoprolol Medications Administered Current Inpatient Medications Acetaminophen (Acetaminophen 325 Mg Tab) 650 mg PO Q6H PRN PRN Reason: Fever/pain Stop: 11/29/21 00:04 Last Admin: 11/01/21 20:52 Dose: 650 mg Documented by: Albuterol (Albuterol Hfa 8 Gm Inhaler) 1 puffs INH TID PRN PRN Reason: shortness of breath or wheezing Stop: 11/25/21 17:54 Dextrose (Dextrose 50% 50 Ml Syringe) 25 - 50 ml IV UD PRN; Protocol PRN Reason: Hypoglycemia Protocol Stop: 11/25/21 17:54 Glucagon (Glucagon For Inj 1 Mg Vial) 1 mg SQ UD PRN; Protocol PRN Reason: Hypoglycemia Protocol Stop: 11/25/21 17:54 Glucose (Glucose 10 Tabs/Tube) 4 - 8 tabs PO UD PRN; Protocol PRN Reason: Hypoglycemia Protocol Stop: 11/25/21 17:54 Glucose (Glucose 40% Gel 15 Gm Tube) 15 - 30 gm PO UD PRN; Protocol PRN Reason: Hypoglycemia Protocol Stop: 11/25/21 17:54 Heparin Sodium (Porcine) (Heparin Sod 5,000 Unit/0.5 Ml Vial) 5,000 units SQ DAILY DEVIN Stop: 12/03/21 08:59 Last Admin: 11/03/21 09:02 Dose: 5,000 units Documented by: Sodium Chloride (Nss 1000ml) 1,000 mls @ 15 mls/hr IV .Q24H DEVIN Stop: 11/09/21 17:55 Last Infusion: 10/29/21 05:53 Dose: Infused Documented by: Insulin Aspart (Insulin Aspart Per Unit) 0 units SC ACHS DEVIN Stop: 11/28/21 16:29 Last Admin: 11/03/21 09:00 Dose: 13 units Documented by: Insulin Glargine (Insulin Glargine Solostar 100 Units/Ml 3 Ml Pen) 10 units SC HS DEVIN; Protocol Stop: 12/02/21 20:59 Last Admin: 11/02/21 21:15 Dose: 10 units Documented by: Insulin Glargine (Insulin Glargine Solostar 100 Units/Ml 3 Ml Pen) 40 units SC 0900 [facility] Stop: 11/03/21 11:00 Last Admin: 11/03/21 09:03 Dose: 40 units Documented by: Lorazepam (Lorazepam 1 Mg Tab) 1 mg PO Q4H PRN PRN Reason: Anxiety Stop: 12/01/21 09:33 Last Admin: 02/17/22 21:12 Dose: 1 mg Documented by: Melatonin (Melatonin 3 Mg Tab) 3 mg PO HS PRN PRN Reason: Sleep Stop: 12/01/21 16:26 Last Admin: 11/02/21 21:12 Dose: 3 mg Documented by: Metoprolol Tartrate (Metoprolol Tartrate 25 Mg Tab) 25 mg PO BID DEVIN Stop: 12/01/21 20:59 Last Admin: 11/03/21 09:03 Dose: 25 mg Documented by: Miscellaneous (Carbohydrates For Hypoglycemia ) 15 - 30 gm PO UD PRN PRN Reason: Hypoglycemia Protocol Stop: 11/25/21 17:54 Miscellaneous Information (Pharmacy Glycemic Mgmt Consult) 1 ea N/A UD PRN PRN Reason: Consult Stop: 11/27/21 08:37 Morphine Sulfate (Morphine Sulfate Reservations Clerk 30 Mg/30 Ml) 30 mg IV PRN PRN; Protocol PRN 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
--- NOTE | 2021-11-03 10:46 | CT Scan Report ---
CT SCAN OF THE ABDOMEN AND PELVIS WITHOUT IV CONTRAST CLINICAL HISTORY: Postoperative abdominal distention. Wound drainage. Generalized abdominal pain. R ecent right hemicolectomy. COMPARISON STUDY: Abdominal CT dated 10/24/2020. TECHNIQUE: CT scan of the abdomen and pelvis is performed from the lung bases to the proximal femora. Images are reviewed in the axial, sagittal, and coronal planes. IV contrast was not administered for this examination. A dose lowering technique was utilized adhering to the principles of ALARA. CT DOSE: 1227.41 mGy.cm FINDINGS: Lung bases: The heart is enlarged and without pericardial effusion. The coronary arteries are densely calcified. Diminished attenuation of the cardiac blood pool as compared to the myocardium suggests a nemia. The lung bases are clear noting bibasilar segmental atelectasis. There is a small hiatal herni a. Liver: The unenhanced liver is enlarged, measuring 20.5 cm in length. The liver is otherwise normal i n contour and attenuation. There is minimal central intrahepatic biliary ductal dilatation. Gallbladder: Surgically absent noting clips in the gallbladder fossa. Spleen: The spleen is enlarged measuring 15.3 cm in length. Pancreas: The unenhanced pancreas is grossly unremarkable. Adrenal glands: Unremarkable. Kidneys: The unenhanced kidneys demonstrate cortical atrophy and are without hydronephrosis. There ar e at least 4 nonobstructing left renal calculi which measure up to 9 mm, and at least 5 nonobstructin g right renal calculi which measure up to 6 mm. No ureteral stone is seen. Left renal cyst measuring up to 4.5 cm. Abdominal vasculature: The abdominal aorta is normal in course and caliber noting moderate atheroscle rotic calcification. There is ectasia of the celiac trunk which measures up to 15 mm. Bowel: There is postoperative change of right hemicolectomy with ileocolic anastomosis. There is diff use distention of fluid-filled small bowel and colon. Small bowel loops measure up to 4 cm in diamete r. There is also gaseous distention of the colon. No transition point is identified and the appearanc e favors a postoperative ileus. Mildly thick-walled loops of small bowel are noted in the right lower quadrant. Peritoneum: No intraperitoneal free air is identified. There is trace perihepatic ascites, as well as trace fluid in the right paracolic gutter. Infiltration is seen throughout the right lower quadrant mesentery, likely on a postoperative basis. Abdominal wall: Midline skin clips are noted. There is approximately 15.5 x 3 x 3.5 cm hyperdense col lection deep to the incision site. There is no CT evidence of wound dehiscence. A tiny cutaneous defe ct along the inferior aspect of the incision with a punctate focus of soft tissue gas are likely rela adrianna to recent drain removal. Lymphadenopathy: A mildly enlarged gastrohepatic node on image #170 measures 12 mm in short axis. Pelvic viscera: The prostate gland is enlarged and heterogeneous. The bladder wall is thickened and t rabeculated indicating chronic outlet obstruction. Skeletal structures: The skeletal structures are osteopenic. There is [id number] lumbosacral sp ondylosis. No lytic or blastic lesions are seen. IMPRESSION: 1. There is postoperative change of right hemicolectomy with ileocolic anastomosis. 2. There is mild diffuse distention of the fluid-filled small bowel, as well as gaseous distention of the colon. No transition point is identified and the appearance favors a postoperative ileus. Develo ping obstruction is considered less likely. Clinical correlation will be required. 3. There is trace ascites, as well as mildly thick-walled loops of small bowel in the right lower bravo drant. These findings are nonspecific and may be related to recent surgery. Clinical correlation will be required. 4. There is an approximately 15.5 x 3 x 3.5 cm hyperdense collection deep to the midline incision. Al though the sterility cannot be assessed by imaging, the density favors a postoperative hematoma. 5. There is no CT evidence of wound dehiscence. 6. Bilateral nephrolithiasis. 7. Cardiomegaly. 8. Hepatosplenomegaly. 9. Additional findings as above. ACT 112: Negative or not required by law. Electronically signed by: Scott Kincaid M.D. 11/03/2021 10:45 AM
--- NOTE | 2021-11-03 11:33 | Hospitalist Progress Note ---
Date of Service November 03, 2021 Assessment & Plan (1) Colon cancer: Plan: S/P day #8 Laparoscopic Assisted Colon Resection, Umbilical Hernia Repair performed by Dr. Arnol MD Distended air-filled loops of large and small bowel are suggestive of posto perative ileus. Had post op ileus NG tube was discontinued on 10/29 Tolerating diet advancement well per Primary surgical team CT abd/P done today showed possible post op incision site hematoma, no evidence of dehiscence Surg recs abd binder Paroxysmal Atrial Fibrillation Cardiology on board Not a candidate for anticoagulation at this time in view of recent surgery Continue po metoprolol. Currently sinus on tele DM type 2 Most recent hemoglobin A1c 8.7 Continue to hold PO diabetic med Continue Lantus and insulin sliding scale Continue monitor blood sugar CKD stage III Creatinine 1.42 Continue monitor BMP DVT prophylaxis on heparin subcu CODE STATUS full code Admission and Anticipated Discharge Date Admission Date: October 26, 2021 Subjective Patient seen and examined Denied any complaints today Denies any abdominal pain, nausea, vomiting. Denies any chest pain, cough, shortness of breath, palpitations Denies any fevers, chills Physical Exam Constitutional: + well hydrated and + obese; no acute distress Eyes: PERRL, conjunctivae normal, anicteric sclerae ENMT: external ear and nose normal, oropharynx normal Respiratory: normal respiratory effort, lungs clear to auscultation Cardiovascular: Rate/Rhythm: regular rate and regular rhythm S1 S2 Gastrointestinal (Abdomen): Abd mildly distended, soft, clean dressing over surgical site +BS Musculoskeletal: No pedal edema Neurologic: PERRL, EOMI, accommodation nl, no face palsy, no dysarthria Psychiatric: A+Ox3, euthymic affect Results & Data Results & Data ([facility]) Vital Signs (Past 12 Hours) Vital Signs Temp Pulse Pulse Resp BP Pulse Ox 11/03/21 08:51 36.8 C 74 18 132/63 97 11/03/21 03:54 36.6 C 64 18 126/70 92 11/03/21 02:14 74 Laboratory Results Abnormal lab results 11/02/21 11/02/21 11/03/21 Range/Units 16:32 20:07 06:48 BUN 29 H (6-23) mg/dl Creatinine 1.42 H (0.6-1.4) mg/dl BUN/Creatinine Ratio 20.4 H (10-20) Glucose 188 H (70-99(Fasting)) mg/dl POC Glucose 139 H 187 H (70-99) mg/dl 11/03/21 11/03/21 Range/Units 07:29 11:00 BUN (6-23) mg/dl Creatinine (0.6-1.4) mg/dl BUN/Creatinine Ratio (10-20) Glucose (70-99(Fasting)) mg/dl POC Glucose 207 H 125 H (70-99) mg/dl
--- NOTE | 2021-11-03 15:21 | Pharmacy Report ---
Pharmacy Glycemic Short Note 2 - Date of Service November 03, 2021 - Glycemic Short BSG Results (Last 24 hours): 11/02/21 11/02/21 11/03/21 16:32 20:07 06:48 Glucose 188 H POC Glucose 139 H 187 H 11/03/21 11/03/21 07:29 11:00 Glucose POC Glucose 207 H 125 H OUTPATIENT ANTIDIABETIC REGIMEN: * Lantus 60 units qAM + 36 units qPM * Alogliptin 12.5 mg PO daily * metformin 1000 mg BIDM * Jardiance 10 mg daily ASSESSMENT: 11/03/21: * Patient received a total of 73 units yesterday (35 units of basal + 38 units bolus) * Fasting BSG of 207 mg/dL remains elevated despite recent increases in Lantus doses, however doses are significantly less than home usage. Continue to titrate as needed. * Novolog parameters appear to be working well. No change today. 11/01/21: * Patient received a total of 46 units yesterday with poor glycemic control * Fasting BSG of 197 mg/dL. The past two days patient has received no basal insulin at bedtime due to BSG at goal. Will remove zero dose from scale so that he receives a minimum of 5 units HS. * Tighten correction factor. 10/31/21 * Patient received total of 35 units yesterday, of which 20 units were basal insulin * PO intake still poorer yesterday, had scaled back on basal yesterday due to concerns of decreased PO intake * Fasting BSG 194 mg/dL - plan to titrate up to 25 units of basal for this morn ing, may add small scale for HS 10/30/21 * Patient received total of 68 units of insulin today, of which 35 units were basal insulin * Fasting BSG 220 mg/dL - estimated total basal likely closer to 40 units daily, plan to give 20 units basal for this morning * Started on clear diet yesterday, however today no documentation of oral intake noted for breakfast and lunch. Will plan to add scale on for HS time as it is unclear if patient will be eating or not. Plan to scale back from previous day of 35 units total of basal in case patient is NPO today 10/29/21 * Patient's BSGs yesterday were [phone] mg/dL and fasting this morning was 198 mg/dL. * Increase basal to 10 units (approximately what patient received yesterday- received total of 11 units of insulin yesterday with 5 units of basal and 6 units of bolus). * Tighten Novolog to provide stronger CF. Background * Mr Boykin is a 71 y/o M with a PMH of T2DM who presents s/p surgery for colon cancer. * Patient's BSGs yesterday were [phone] mg/dL. Fasting today is 168 mg/dL. * Patient received 11 units of insulin yesterday (5 units of basal and 6 units of bolus). * Patient is going into the third full day of NPO status so expect glycogen levels to see be depleted. * Continue current regimen as all BSGs less than 180 mg/dL. PLAN FOR INPATIENT GLYCEMIC CONTROL: * Hold outpatient oral diabetes medications * Basal insulin * Lantus 40 units QAM * Lantus 10 units QPM * Bolus insulin * NovoLog per scale ACHS or Q6hrs while NPO * Goal Range: Low 110 mg/dL - High 140 mg/dL * Correction Factor: 12 mg/dL/unit * Nutritional / Prandial insulin per carb ratio of 1 unit per 5 grams CHO consumed PLAN FOR DISCHARGE: * A1c 8.7% - insulin requirements during hospital stay much less than outpatient needs. Will continue to follow to determine if continuation of outpatient regimen is appropriate
[2021-11-03] MEDS: LORazepam 1 MG TAB PO PRN (22:03)
[2021-11-03] MEDS: INSULIN GLARGINE SOLOSTAR 100 UNITS/ML 3 ML PEN SC SCH (22:09)
[2021-11-04] MEDS: ONDANSETRON INJ 2 MG/ML 2 ML VIAL IV PRN ×4 (04:36→16:35)
--- NOTE | 2021-11-04 04:53 | Surgery Progress Note ---
Date of Service November 04, 2021 Assessment & Plan (1) Colon cancer: Plan: Postop day #9 right colon resection Surgical pathology showed adenocarcinoma Due to patient's nausea vomiting will perform the following actions: We will make patient n.p.o. -We will initiate IV fluid for hydration We will check a KUB We will check labs -We will plan on reinstituting the diet slowly once nausea vomiting have resolved and bowel function has improved Patient did have a CT scan of the abdomen and pelvis yesterday due to drainage from his incision. There is no evidence of wound dehiscence. Findings did demonstrate concern for potential postoperative ileus. Subcu heparin is in place for DVT prevention as above. had n/v this AM. continues to have nausea. xray appears to have an ileus. offered NGT but pt refuses continue IVF/NPO . repeat KUB tomorrow. will add additional agents for nausea. Admission and Anticipated Discharge Date Admission Date: October 26, 2021 Subjective Patient was resting comfortably in bed at the time of my initial visit. He noted the previous evening he was not eating much but was tolerating solid food. He denied any nausea vomiting last night. He denies any shortness of breath. He says that he has passing flatus. During my visit with the patient he developed acute onset nausea and vomiting with bilious emesis. He denied any worsening abdominal pain. Discussed with the night time nanny nurse and patient did not have any nausea vomiting overnight. Most recent bowel movement reported was 11/02/2021. Physical Exam Gastrointestinal (Abdomen): Abdomen is mildly distended. There is appropriate pain with palpation near surgical incision. Patient's incision was examined and near the inferior portion of his incision he had some serosanguineous drainage. Bowel sounds are hypoactive to absent. Results & Data ([facility]) Vital Signs (Past 12 Hours) Vital Signs Temp Pulse Pulse Pulse Resp BP Pulse Ox 11/04/21 04:08 36.7 C 73 20 114/67 93 11/04/21 03:44 85 11/04/21 00:00 36.6 C 77 20 119/70 95 11/03/21 19:54 36.9 C 75 20 105/63 94 11/03/21 17:14 36.6 C 78 18 131/63 96 PG Care Time/CCT Total # of Minutes Spent Total Time Spent with Patient: Total time spent is greater than 50% in coordination of care (as documented) at patient's floor/unit and/or counseling patient: Coding Level of Care Code None Diagnoses Colon cancer C18.9
[2021-11-04] MEDS: LACTATED RINGER'S 1,000 ML IV SCH ×2 (05:00→15:51)
[2021-11-04 05:26] LABS: Basophils # (auto) 0.02 K/uL (0-0.2); Basophils % (auto) 0.1 %; Eosinophils # (auto) 0.22 K/uL (0-0.5); Eosinophils % (auto) 1.6 %; Hematocrit (blood only) 32.1 % (42-52); Hemoglobin 10.2 g/dL (14.0-18.0); Immature Granulocytes # (auto) 0.15 K/uL (0.00-0.02); Immature Granulocytes % (auto) 1.1 %; Lymphocytes # (auto) 0.88 K/uL (1.2-3.4); Lymphocytes % (auto) 6.4 %; Mean Corpuscular Hemoglobin 27.3 pg (25-34); Mean Corpuscular Volume 85.8 fL (80-100); Mean Platelet Volume 9.3 fL (7.4-10.4); Monocytes # (auto) 1.04 K/uL (0.11-0.59); Monocytes % (auto) 7.6 %; Neutrophils # (auto) 11.35 K/uL (1.4-6.5); Neutrophils % (auto) 83.2 %; Platelet Count 311 K/uL (130-400); RDW Coefficient of Variation 16.3 % (11.5-14.5); RDW Standard Deviation 50.9 fL (36.4-46.3); Red Blood Count 3.74 M/uL (4.7-6.1); White Blood Count 13.66 K/uL (4.8-10.8)
[2021-11-04 05:48] LABS: BUN Creatinine Ratio 22.3 (10-20); Calcium 8.6 mg/dl (8.5-10.1); Creatinine Clr Calc Pharmacy 62.3 ml/min; Est GFR (African American) 63.2 ml/min; Est GFR (Non-African American) 54.5 ml/min; Potassium 3.7 mmol/L (3.5-5.1)
[2021-11-04 05:57] LABS: Mean Corpuscular Hgb Conc 31.8 g/dL (32-36)
[2021-11-04] MEDS ORDERED: PROMETHAZINE HCL 12.5 MG in SODIUM CHLORIDE 0.9% 50 ML IV STA (06:06)
[2021-11-04] MEDS: HEPARIN SOD 5,000 UNIT/0.5 ML VIAL SQ SCH (08:13)
[2021-11-04] MEDS: INSULIN ASPART PER UNIT SC SCH ×3 (08:16→17:31)
--- NOTE | 2021-11-04 08:51 | XRay Report ---
KUB CLINICAL HISTORY: Nausea and vomiting. FINDINGS: 3 AP, portable, supine abdominal radiographs are compared to study dated 10/31/2009 and gisselle elated with abdominal CT dated 11/03/2021. Midline skin clips are noted. Cholecystectomy clips are see n in the right upper quadrant. There is persistent gaseous distention of the small bowel comment with loops measuring up to 4 cm in diameter. Gas is also seen in the colon. No evidence of intraperitonea l free air is seen on these supine images. There are no abnormal abdominal calcifications. The bony s tructures appear intact noting lumbosacral spondylosis. IMPRESSION: There is persistent gaseous distention of the small bowel loops, as well as gas within th e colon. Findings favor a postoperative ileus. A small bowel obstruction could appear similar and cli nical correlation will be required. Electronically signed by: Scott Kincaid M.D. 11/04/2021 8:50 AM
[2021-11-04] MEDS ORDERED: INSULIN GLARGINE SOLOSTAR 100 UNITS/ML 3 ML PEN SC SCH ×2 (09:00)
--- NOTE | 2021-11-04 09:39 | Hospitalist Progress Note ---
Date of Service November 04, 2021 Assessment & Plan (1) Colon cancer: Plan: S/P day #9 Laparoscopic Assisted Colon Resection, Umbilical Hernia Repair performed by Dr. Arnol MD Distended air-filled loops of large and small bowel are suggestive of posto perative ileus. Had post op ileus NG tube was discontinued on 10/29 CT abd/P done yesterdat showed possible post op incision site hematoma, no evidence of dehiscence Patient appear to have developed ileus again today KUB reviewed, notable for small bowel loop distention Patient may need NGT NPO for now Already started on IVF Antiemetics prn Paroxysmal Atrial Fibrillation Cardiology on board Not a candidate for anticoagulation at this time in view of recent surgery On po metoprolol May do iv prn metoprolol if needed DM type 2 Most recent hemoglobin A1c 8.7 Continue to hold PO diabetic med Continue Lantus and insulin sliding scale Glycemic pharm on board for glycemic management especially while NPO CKD stage III Creatinine 1.30 Continue monitor BMP DVT prophylaxis on heparin subcu CODE STATUS full code Admission and Anticipated Discharge Date Admission Date: October 26, 2021 Subjective Patient seen and examined Patient developed nausea and vomiting this morning. Reported 3 episode of vomiting Denied any abdominal pain Still having regular BM and passing flatus Denies any chest pain, cough, shortness of breath, palpitations Denies any fevers, chills Physical Exam Constitutional: + well hydrated and + obese; no acute distress Eyes: PERRL, conjunctivae normal, anicteric sclerae ENMT: external ear and nose normal, oropharynx normal Respiratory: normal respiratory effort, lungs clear to auscultation Cardiovascular: Rate/Rhythm: regular rate and regular rhythm S1 S2 Gastrointestinal (Abdomen): Abd is mildly distended, perisurgical site te nderness. Hypoactive bowel sounds Musculoskeletal: No pedal edema Neurologic: PERRL, EOMI, accommodation nl, no face palsy, no dysarthria Psychiatric: A+Ox3, euthymic affect Results & Data Results & Data ([facility]) Vital Signs (Past 12 Hours) Vital Signs Temp Pulse Pulse Resp BP Pulse Ox 11/04/21 07:53 36.4 C L 79 18 122/74 93 11/04/21 04:08 36.7 C 73 20 114/67 93 11/04/21 03:44 85 11/04/21 00:00 36.6 C 77 20 119/70 95 Laboratory Results Abnormal lab results 11/03/21 11/03/21 11/03/21 Range/Units 11:00 16:34 20:04 WBC (4.8-10.8) K/uL RBC (4.7-6.1) M/uL Hgb (14.0-18.0) g/dL Hct (42-52) % MCHC (32-36) g/dL RDW Std Deviation (36.4-46.3) fL RDW Coeff of Rea (11.5-14.5) % Neut # (Auto) (1.4-6.5) K/uL Lymph # (Auto) (1.2-3.4) K/uL [place] # (Auto) (0.11-0.59) K/uL Immature Gran # (Auto) (0.00-0.02) K/uL Sodium (136-145) mmol/L BUN (6-23) mg/dl BUN/Creatinine Ratio (10-20) Glucose (70-99(Fasting)) mg/dl POC Glucose 125 H 182 H 137 H (70-99) mg/dl 11/04/21 11/04/21 11/04/21 Range/Units 04:50 04:50 07:29 WBC 13.66 H (4.8-10.8) K/uL RBC 3.74 L (4.7-6.1) M/uL Hgb 10.2 L (14.0-18.0) g/dL Hct 32.1 L (42-52) % MCHC 31.8 L (32-36) g/dL RDW Std Deviation 50.9 H (36.4-46.3) fL RDW Coeff of Rea 16.3 H (11.5-14.5) % Neut # (Auto) 11.35 H (1.4-6.5) K/uL Lymph # (Auto) 0.88 L (1.2-3.4) K/uL [place] # (Auto) 1.04 H (0.11-0.59) K/uL Immature Gran # (Auto) 0.15 H (0.00-0.02) K/uL Sodium 135 L (136-145) mmol/L BUN 29 H (6-23) mg/dl BUN/Creatinine Ratio 22.3 H (10-20) Glucose 194 H (70-99(Fasting)) mg/dl POC Glucose 208 H (70-99) mg/dl
[2021-11-04 09:58] LABS: Magnesium 1.8 mg/dl (1.7-2.4); Phosphorus 3.9 mg/dl (2.5-4.9)
[2021-11-04] MEDS: METOPROLOL TARTRATE 25 MG TAB PO SCH ×2 (10:52→20:36)
--- NOTE | 2021-11-04 13:45 | Pharmacy Report ---
Pharmacy Glycemic Short Note 2 - Date of Service November 04, 2021 - Glycemic Short BSG Results (Last 24 hours): 11/03/21 11/03/21 11/04/21 16:34 20:04 04:50 Glucose 194 H POC Glucose 182 H 137 H 11/04/21 11/04/21 07:29 11:20 Glucose POC Glucose 208 H 195 H OUTPATIENT ANTIDIABETIC REGIMEN: * Lantus 60 units qAM + 36 units qPM * Alogliptin 12.5 mg PO daily * metformin 1000 mg BIDM * Jardiance 10 mg daily * HbA1c: 8.7% (10/27/21) ASSESSMENT: 11/04/21: * Patient developed nausea/vomiting this morning and has been made NPO since that time * Despite elevated fasting BSG of 208 mg/dL, will decrease Lantus today * No change to Novolog parameters today * Plan is to advance diet as tolerated once nausea and vomiting has resolved and bowel function has improved 11/03/21: * Patient received a total of 73 units yesterday (35 units of basal + 38 units bolus) * Fasting BSG of 207 mg/dL remains elevated despite recent increases in Lantus doses, however doses are significantly less than home usage. Continue to titrate as needed. * Novolog parameters appear to be working well. No change today. 11/01/21: * Patient received a total of 46 units yesterday with poor glycemic control * Fasting BSG of 197 mg/dL. The past two days patient has received no basal insulin at bedtime due to BSG at goal. Will remove zero dose from scale so that he receives a minimum of 5 units HS. * Tighten correction factor. Background * Mr Boykin is a 71 y/o M with a PMH of T2DM who presents s/p surgery for colon cancer. * Patient's BSGs yesterday were [phone] mg/dL. Fasting today is 168 mg/dL. * Patient received 11 units of insulin yesterday (5 units of basal and 6 units of bolus). * Patient is going into the third full day of NPO status so expect glycogen levels to see be depleted. * Continue current regimen as all BSGs less than 180 mg/dL. PLAN FOR INPATIENT GLYCEMIC CONTROL: * Hold outpatient oral diabetes medications * Basal insulin - decrease * Lantus 30 units QAM * Lantus 0-10 units QPM (see EHR for details) * Bolus insulin * NovoLog per scale ACHS or Q6hrs while NPO * Goal Range: Low 110 mg/dL - High 140 mg/dL * Correction Factor: 12 mg/dL/unit * Nutritional / Prandial insulin per carb ratio of 1 unit per 5 grams CHO consumed PLAN FOR DISCHARGE: * A1c 8.7% - insulin requirements during hospital stay much less than outpatient needs. Will continue to follow to determine if continuation of outpatient regimen is appropriate
[2021-11-04] MEDS ORDERED: PROMETHAZINE HCL 12.5 MG in SODIUM CHLORIDE 0.9% 50 ML IV PRN (16:16)
[2021-11-04] MEDS: INSULIN GLARGINE SOLOSTAR 100 UNITS/ML 3 ML PEN SC SCH (22:18)
[2021-11-05] MEDS: LACTATED RINGER'S 1,000 ML IV SCH ×4 (00:08→23:44)
[2021-11-05] MEDS: INSULIN ASPART PER UNIT SC SCH ×5 (00:30→20:53)
--- NOTE | 2021-11-05 06:39 | Surgery Progress Note ---
Date of Service November 05, 2021 Assessment & Plan (1) Colon cancer: Plan: PatientPostop day #10 right colon resection Surgical pathology showed adenocarcinoma Postoperative ileus yesterday was therefore made n.p.o.: -Continue IV fluid until certain his oral intake will be adequate -Awaiting a.m. labs this morning -Recheck KUB this morning which is currently pending -Patient has had return of bowel function may consider initiating sips of clear liquids if his KUB is acceptable Subcu heparin is in place for DVT prevention as above. stating he had bms and the nausea has completely resolved. no pain. +bs's. desperately wants something to drink. kub still showing ileus pattern but sometimes xrays lag...clinically doing great. will allow him to try some clears today. Admission and Anticipated Discharge Date Admission Date: October 26, 2021 Subjective Patient notes he feels somewhat better than what he did yesterday. He says he has not had any further nausea vomiting since yesterday afternoon. He denies any worsening abdominal pain. He notes that he had several bowel movements yesterday but does not feel as though he has much in the way of an appetite at this time. Physical Exam Gastrointestinal (Abdomen): Abdomen has some mild distention. Bowel sounds are hypoactive to absent. Patient has appropriate pain near surgical incisions. There is a small amount of serosanguineous drainage from inferior aspect of his incision. Results & Data ([facility]) Vital Signs (Past 12 Hours) Vital Signs Temp Pulse Pulse Resp BP Pulse Ox 11/05/21 03:48 36.6 C 69 16 130/66 93 11/05/21 01:11 87 11/04/21 23:07 36.5 C 73 16 115/66 96 11/04/21 20:21 37.1 C 85 16 106/64 91 PG Care Time/CCT Total # of Minutes Spent Total Time Spent with Patient: Total time spent is greater than 50% in coordination of care (as documented) at patient's floor/unit and/or counseling patient: Coding Level of Care Code None Diagnoses Colon cancer C18.9
[2021-11-05 07:37] LABS: Basophils # (auto) 0.02 K/uL (0-0.2); Basophils % (auto) 0.3 %; Eosinophils % (auto) 2.6 %; Hemoglobin 8.6 g/dL (14.0-18.0); Immature Granulocytes # (auto) 0.07 K/uL (0.00-0.02); Immature Granulocytes % (auto) 0.9 %; Lymphocytes % (auto) 15.5 %; Mean Corpuscular Hgb Conc 30.7 g/dL (32-36); Mean Corpuscular Volume 87.8 fL (80-100); Mean Platelet Volume 9.1 fL (7.4-10.4); Monocytes # (auto) 0.64 K/uL (0.11-0.59); Monocytes % (auto) 8.3 %; Neutrophils % (auto) 72.4 %; Platelet Count 289 K/uL (130-400); RDW Coefficient of Variation 16.7 % (11.5-14.5); RDW Standard Deviation 53.5 fL (36.4-46.3); Red Blood Count 3.19 M/uL (4.7-6.1); White Blood Count 7.73 K/uL (4.8-10.8)
[2021-11-05 08:12] LABS: Albumin Globulin Ratio 1.1 (0.9-2); Albumin Level 2.6 gm/dl (3.4-5.0); Bilirubin,Total 1.3 mg/dl (0.2-1.0); Calcium 7.7 mg/dl (8.5-10.1); Creatinine Clr Calc Pharmacy 57.3 ml/min; Est GFR (African American) 57.3 ml/min; Est GFR (Non-African American) 49.4 ml/min; Globulin 2.3 gm/dl (2.5-4.0); Potassium 3.6 mmol/L (3.5-5.1); Total Protein 4.9 gm/dl (6.0-8.3)
[2021-11-05] MEDS: METOPROLOL TARTRATE 25 MG TAB PO SCH ×2 (08:47→20:54)
[2021-11-05] MEDS: INSULIN GLARGINE SOLOSTAR 100 UNITS/ML 3 ML PEN SC SCH ×2 (08:50→20:54)
--- NOTE | 2021-11-05 09:47 | Hospitalist Progress Note ---
Date of Service November 05, 2021 Assessment & Plan (1) Colon cancer: Plan: S/P day #10 Laparoscopic Assisted Colon Resection, Umbilical Hernia Repair performed by Dr. Arnol MD Distended air-filled loops of large and small bowel are suggestive of post operative ileus. Had post op ileus NG tube was discontinued on 10/29 CT abd/P done on 11/03/21 showed possible post op incision site hematoma, no evidence of dehiscence Patient appear to have developed ileus again yesterday Has been NPO Will resolution of nausea, vomiting and having BM, may do clears if ok with Primary surgical team Paroxysmal Atrial Fibrillation Cardiology on board Not a candidate for anticoagulation at this time in view of recent surgery On po metoprolol May do iv prn metoprolol if needed DM type 2 Most recent hemoglobin A1c 8.7 Continue to hold PO diabetic med Continue Lantus and insulin sliding scale Glycemic pharm on board for glycemic management especially while NPO CKD stage III Creatinine 1.41 Continue monitor BMP Anemia Patient has hb drop to 8.6 today Has been mid 9s. Could be dilutional from IVF as all cell lines dropped However, will monitor and hold sq heparin for today DVT prophylaxis - heparin subcu on hold for today CODE STATUS full code Admission and Anticipated Discharge Date Admission Date: October 26, 2021 Subjective Patient seen and examined Developed nausea/vomiting yesterday. Was kept NPO and started on IVF Reports nausea and vomiting have resolved Denied any abd pain. Reported about 2 large BM earlier today Denies any chest pain, cough, shortness of breath, palpitations Denies any fevers, chills Physical Exam Constitutional: + well hydrated and + obese; no acute distress Eyes: PERRL, conjunctivae normal, anicteric sclerae ENMT: external ear and nose normal, oropharynx normal Respiratory: normal respiratory effort, lungs clear to auscultation Cardiovascular: Rate/Rhythm: regular rate and regular rhythm Gastrointestinal (Abdomen): Abd is mildly distended, soft, clean dressing over surgical site, reduced bowel sounds Musculoskeletal: No pedal edema Neurologic: PERRL, EOMI, accommodation nl, no face palsy, no dysarthria Psychiatric: A+Ox3, euthymic affect Results & Data Results & Data ([facility]) Vital Signs (Past 12 Hours) Vital Signs Temp Pulse Pulse Pulse Resp BP Pulse Ox 11/05/21 07:42 36.5 C 76 22 122/66 94 11/05/21 07:30 70 11/05/21 03:48 36.6 C 69 16 130/66 93 11/05/21 01:11 87 11/04/21 23:07 36.5 C 73 16 115/66 96 Laboratory Results Abnormal lab results 11/04/21 11/04/21 11/04/21 Range/Units 16:24 20:23 23:10 RBC (4.7-6.1) M/uL Hgb (14.0-18.0) g/dL Hct (42-52) % MCHC (32-36) g/dL RDW Std Deviation (36.4-46.3) fL RDW Coeff of Rea (11.5-14.5) % [place] # (Auto) (0.11-0.59) K/uL Immature Gran # (Auto) (0.00-0.02) K/uL BUN (6-23) mg/dl Creatinine (0.6-1.4) mg/dl BUN/Creatinine Ratio (10-20) Glucose (70-99(Fasting)) mg/dl POC Glucose 132 H 169 H 174 H (70-99) mg/dl Calcium (8.5-10.1) mg/dl Total Bilirubin (0.2-1.0) mg/dl Total Protein (6.0-8.3) gm/dl Albumin (3.4-5.0) gm/dl Globulin (2.5-4.0) gm/dl 11/05/21 11/05/21 11/05/21 Range/Units 05:35 06:45 06:45 RBC 3.19 L (4.7-6.1) M/uL Hgb 8.6 L (14.0-18.0) g/dL Hct 28.0 L (42-52) % MCHC 30.7 L (32-36) g/dL RDW Std Deviation 53.5 H (36.4-46.3) fL RDW Coeff of Rea 16.7 H (11.5-14.5) % [place] # (Auto) 0.64 H (0.11-0.59) K/uL Immature Gran # (Auto) 0.07 H (0.00-0.02) K/uL BUN 31 H (6-23) mg/dl Creatinine 1.41 H (0.6-1.4) mg/dl BUN/Creatinine Ratio 22.0 H (10-20) Glucose 147 H (70-99(Fasting)) mg/dl POC Glucose 140 H (70-99) mg/dl Calcium 7.7 L (8.5-10.1) mg/dl Total Bilirubin 1.3 H (0.2-1.0) mg/dl Total Protein 4.9 L (6.0-8.3) gm/dl Albumin 2.6 L (3.4-5.0) gm/dl Globulin 2.3 L (2.5-4.0) gm/dl 11/05/21 11/05/21 Range/Units 07:16 11:24 RBC (4.7-6.1) M/uL Hgb (14.0-18.0) g/dL Hct (42-52) % MCHC (32-36) g/dL RDW Std Deviation (36.4-46.3) fL RDW Coeff of Rea (11.5-14.5) % [place] # (Auto) (0.11-0.59) K/uL Immature Gran # (Auto) (0.00-0.02) K/uL BUN (6-23) mg/dl Creatinine (0.6-1.4) mg/dl BUN/Creatinine Ratio (10-20) Glucose (70-99(Fasting)) mg/dl POC Glucose 149 H 157 H (70-99) mg/dl Calcium (8.5-10.1) mg/dl Total Bilirubin (0.2-1.0) mg/dl Total Protein (6.0-8.3) gm/dl Albumin (3.4-5.0) gm/dl Globulin (2.5-4.0) gm/dl
--- NOTE | 2021-11-05 10:01 | XRay Report ---
KUB HISTORY: Acute generalized abdominal pain ileus/sbo COMPARISON: KUB 11/04/2021, CT abdomen pelvis 11/03/2021 FINDINGS: Midline skin jamey. Numerous air-filled dilated loops of small bowel are noted measuring up to approximately 4.4 cm, previously 3.9 cm. Air is also noted within the large bowel and stomach. Surgical suture material is noted within the abdominal right upper quadrant. No renal calculi. No ur eteral calculi. No pneumoperitoneum or pneumatosis. Degenerative changes of the spine, pelvis and hip s. No fracture. IMPRESSION: Persistent dilated air-filled loops of small bowel suggestive of postoperative ileus versus obstructi on. Follow-up recommended. ACT 112: Negative or not required by law. The above report was generated using voice recognition software. It may contain grammatical, syntax o r spelling errors. Electronically signed by: Jay Hall M.D. 11/05/2021 10:00 AM
--- NOTE | 2021-11-05 13:34 | Pharmacy Report ---
Pharmacy Glycemic Short Note 2 - Date of Service November 05, 2021 - Glycemic Short BSG Results (Last 24 hours): 11/04/21 11/04/21 11/04/21 16:24 20:23 23:10 Glucose POC Glucose 132 H 169 H 174 H 11/05/21 11/05/21 11/05/21 05:35 06:45 07:16 Glucose 147 H POC Glucose 140 H 149 H 11/05/21 11:24 Glucose POC Glucose 157 H OUTPATIENT ANTIDIABETIC REGIMEN: * Lantus 60 units qAM + 36 units qPM * Alogliptin 12.5 mg PO daily * metformin 1000 mg BIDM * Jardiance 10 mg daily * HbA1c: 8.7% (10/27/21) ASSESSMENT: 11/05/21: * Diet advanced to clears today, but PO intake still minimal * BSGs reasonable so far today, 149 and 157 mg/dL, continue current Novolog parameters * Will scale Lantus to likely provide reduced basal dose today 11/04/21: * Patient developed nausea/vomiting this morning and has been made NPO since that time * Despite elevated fasting BSG of 208 mg/dL, will decrease Lantus today * No change to Novolog parameters today * Plan is to advance diet as tolerated once nausea and vomiting has resolved and bowel function has improved 11/03/21: * Patient received a total of 73 units yesterday (35 units of basal + 38 units bolus) * Fasting BSG of 207 mg/dL remains elevated despite recent increases in Lantus doses, however doses are significantly less than home usage. Continue to titrate as needed. * Novolog parameters appear to be working well. No change today. 11/01/21: * Patient received a total of 46 units yesterday with poor glycemic control * Fasting BSG of 197 mg/dL. The past two days patient has received no basal insulin at bedtime due to BSG at goal. Will remove zero dose from scale so that he receives a minimum of 5 units HS. * Tighten correction factor. Background * Mr Boykin is a 71 y/o M with a PMH of T2DM who presents s/p surgery for colon cancer. * Patient's BSGs yesterday were [phone] mg/dL. Fasting today is 168 mg/dL. * Patient received 11 units of insulin yesterday (5 units of basal and 6 units of bolus). * Patient is going into the third full day of NPO status so expect glycogen levels to see be depleted. * Continue current regimen as all BSGs less than 180 mg/dL. PLAN FOR INPATIENT GLYCEMIC CONTROL: * Hold outpatient oral diabetes medications * Basal insulin * Lantus 20 units QAM * Lantus 0-20 units QPM (see EHR for details) * Bolus insulin * NovoLog per scale ACHS or Q6hrs while NPO * Goal Range: Low 110 mg/dL - High 140 mg/dL * Correction Factor: 12 mg/dL/unit * Nutritional / Prandial insulin per carb ratio of 1 unit per 5 grams CHO consumed PLAN FOR DISCHARGE: * A1c 8.7% - insulin requirements during hospital stay much less than outpatient needs. Will continue to follow to determine if continuation of outpatient regimen is appropriate.
[2021-11-05] MEDS: ACETAMINOPHEN 325 MG TAB PO PRN ×2 (15:41→20:57)
[2021-11-05] MEDS: oxyCODONE/ACETAMINOPHEN 5mg/325mg TAB PO PRN (18:41)
[2021-11-06 07:29] LABS: Basophils # (auto) 0.02 K/uL (0-0.2); Basophils % (auto) 0.3 %; Eosinophils % (auto) 2.6 %; Hematocrit (blood only) 27.6 % (42-52); Hemoglobin 8.6 g/dL (14.0-18.0); Immature Granulocytes # (auto) 0.08 K/uL (0.00-0.02); Immature Granulocytes % (auto) 1.1 %; Lymphocytes # (auto) 1.03 K/uL (1.2-3.4); Lymphocytes % (auto) 13.6 %; Mean Corpuscular Hgb Conc 31.2 g/dL (32-36); Mean Corpuscular Volume 86.5 fL (80-100); Monocytes # (auto) 0.57 K/uL (0.11-0.59); Monocytes % (auto) 7.5 %; Neutrophils # (auto) 5.66 K/uL (1.4-6.5); Neutrophils % (auto) 74.9 %; Platelet Count 257 K/uL (130-400); RDW Coefficient of Variation 16.5 % (11.5-14.5); RDW Standard Deviation 52.3 fL (36.4-46.3); Red Blood Count 3.19 M/uL (4.7-6.1); White Blood Count 7.56 K/uL (4.8-10.8)
--- NOTE | 2021-11-06 07:38 | Surgery Progress Note ---
Date of Service November 06, 2021 Assessment & Plan (1) Colon cancer: Plan: POD#11 Patient is 11 days postop laparoscopic assisted right colon resection for an adenocarcinoma path noted discussed with patient before He has had a protracted postoperative period but appeared to be an ileus versus a small bowel obstruction and every time we tried to feed him off and on when he felt better he would vomit At this time the patient would like more solid food and will advance it but I am concerned that this will not last long and his nutritional status and oral intake has been marginal since surgery therefore we will insert a PICC line anticipation that he may need some hyperalimentation for I feel that it may take a few more days until his bowel function would return to normal and his oral intake would be sufficient We are treating this is a postoperative ileus but I cannot definitely exclude that he may have an element of bowel obstruction likely incomplete All question answered Labs this morning PRP is pending PatientPostop day #10 right colon resection Surgical pathology showed adenocarcinoma Postoperative ileus yesterday was therefore made n.p.o.: -Continue IV fluid until certain his oral intake will be adequate -Awaiting a.m. labs this morning -Recheck KUB this morning which is currently pending -Patient has had return of bowel function may consider initiating sips of clear liquids if his KUB is acceptable Subcu heparin is in place for DVT prevention as above. stating he had bms and the nausea has completely resolved. no pain. +bs's. desperately wants something to drink. kub still showing ileus pattern but sometimes xrays lag...clinically doing great. will allow him to try some clears today. Admission and Anticipated Discharge Date Admission Date: October 26, 2021 Subjective Patient may feel little bit better than yesterday states she has moved his bowels a few times would like to get something more to eat although he is afraid that he is going to vomit again States that his belly is normally distended and I concur since I saw him in her preoperative state Physical Exam Physical Exam: Is alert coherent resting comfortably no distress The abdomen is moderately distended although appears to be much softer than I saw him 3 days ago The incision appears intact there is minimal drainage from the inferior aspect at the skin where the [place] in the subcu was removed The abdominal wall ecchymosis from the heparin injection is resolving Results & Data ([facility]) Vital Signs (Past 12 Hours) Vital Signs Temp Pulse Pulse Resp BP Pulse Ox 11/06/21 07:16 64 11/06/21 03:18 36.5 C 62 16 112/57 L 94 11/05/21 23:48 56 L 11/05/21 23:35 36.6 C 62 16 110/63 91 11/05/21 20:26 36.4 C L 64 16 137/67 96 PG Care Time/CCT Total # of Minutes Spent Total Time Spent with Patient: Total time spent is greater than 50% in coordination of care (as documented) at patient's floor/unit and/or counseling patient: Coding Level of Care Code None Diagnoses Colon cancer C18.9
[2021-11-06] MEDS: LACTATED RINGER'S 1,000 ML IV SCH ×2 (07:45→16:42)
[2021-11-06 07:54] LABS: Calcium 7.7 mg/dl (8.5-10.1); Est GFR (African American) 57.8 ml/min; Est GFR (Non-African American) 49.8 ml/min; Potassium 3.7 mmol/L (3.5-5.1)
[2021-11-06] MEDS: METOPROLOL TARTRATE 25 MG TAB PO SCH ×2 (08:15→20:25)
[2021-11-06] MEDS: INSULIN ASPART PER UNIT SC SCH ×4 (09:36→21:17)
[2021-11-06] MEDS: INSULIN GLARGINE SOLOSTAR 100 UNITS/ML 3 ML PEN SC SCH ×2 (09:36→21:17)
[2021-11-06] MEDS ORDERED: TPN/PPN CONSULT PHARMACY STA (10:37)
[2021-11-06] MEDS ORDERED: TPN/PPN CONSULT PHARMACY PRN (10:39)
[2021-11-06] MEDS: ACETAMINOPHEN 325 MG TAB PO PRN (10:50)
[2021-11-06 11:39] LABS: Magnesium 1.7 mg/dl (1.7-2.4); Phosphorus 3.4 mg/dl (2.5-4.9)
--- NOTE | 2021-11-06 13:46 | Hospitalist Progress Note ---
Date of Service November 06, 2021 Assessment & Plan (1) Colon cancer: Plan: S/P day #11 Laparoscopic Assisted Colon Resection, Umbilical Hernia Repair performed by Dr. Arnol MD Distended air-filled loops of large and small bowel are suggestive of post operative ileus. Had post op ileus NG tube was discontinued on 10/29 CT abd/P done on 11/03/21 showed possible post op incision site hematoma, no evidence of dehiscence Patient still not having good bowel recovery with intermittent ileus. Hence poor oral intake Got a PICC line this AM per Primary team in view of possible TPN if this persis Paroxysmal Atrial Fibrillation Cardiology evaluated Not a candidate for anticoagulation at this time in view of recent surgery On po metoprolol DM type 2 Most recent hemoglobin A1c 8.7 Continue to hold PO diabetic med Continue Lantus and insulin sliding scale Glycemic pharm on board for glycemic management especially while NPO CKD stage III Creatinine 1.4 Continue monitor BMP Anemia Patient stable in 8s Continue hep sq for DVT ppx DVT prophylaxis - heparin subcu CODE STATUS full code Admission and Anticipated Discharge Date Admission Date: October 26, 2021 Subjective Patient seen and examined Denied nausea and vomiting today Last BM was yesterday AM. Reports passing flatus Denied any abd pain. Denies any chest pain, cough, shortness of breath, palpitations Denies any fevers, chills Physical Exam Constitutional: + well hydrated and + obese; no acute distress Eyes: PERRL, conjunctivae normal, anicteric sclerae ENMT: external ear and nose normal, oropharynx normal Respiratory: normal respiratory effort, lungs clear to auscultation Cardiovascular: Rate/Rhythm: regular rate and regular rhythm Gastrointestinal (Abdomen): Mildly distended, soft, nontender, clean dressing over surgical site, reduced BS Musculoskeletal: No pedal edema Neurologic: PERRL, EOMI, accommodation nl, no face palsy, no dysarthria Psychiatric: A+Ox3, euthymic affect Results & Data Results & Data ([facility]) Vital Signs (Past 12 Hours) Vital Signs Temp Pulse Pulse Pulse Resp BP Pulse Ox 11/06/21 12:18 36.7 C 63 18 108/55 L 94 11/06/21 07:26 36.6 C 78 18 121/62 91 11/06/21 07:16 64 11/06/21 03:18 36.5 C 62 16 112/57 L 94 Laboratory Results Abnormal lab results 11/05/21 11/05/21 11/06/21 Range/Units 16:33 20:28 07:04 RBC 3.19 L (4.7-6.1) M/uL Hgb 8.6 L (14.0-18.0) g/dL Hct 27.6 L (42-52) % MCHC 31.2 L (32-36) g/dL RDW Std Deviation 52.3 H (36.4-46.3) fL RDW Coeff of Rea 16.5 H (11.5-14.5) % Lymph # (Auto) 1.03 L (1.2-3.4) K/uL Immature Gran # (Auto) 0.08 H (0.00-0.02) K/uL BUN (6-23) mg/dl Glucose (70-99(Fasting)) mg/dl POC Glucose 163 H 132 H (70-99) mg/dl Calcium (8.5-10.1) mg/dl Triglycerides (0-150) mg/dl 11/06/21 11/06/21 11/06/21 Range/Units 07:04 07:14 07:40 RBC (4.7-6.1) M/uL Hgb (14.0-18.0) g/dL Hct (42-52) % MCHC (32-36) g/dL RDW Std Deviation (36.4-46.3) fL RDW Coeff of Rea (11.5-14.5) % Lymph # (Auto) (1.2-3.4) K/uL Immature Gran # (Auto) (0.00-0.02) K/uL BUN 28 H (6-23) mg/dl Glucose 129 H (70-99(Fasting)) mg/dl POC Glucose 141 H (70-99) mg/dl Calcium 7.7 L (8.5-10.1) mg/dl Triglycerides 220 H (0-150) mg/dl 11/06/21 Range/Units 11:08 RBC (4.7-6.1) M/uL Hgb (14.0-18.0) g/dL Hct (42-52) % MCHC (32-36) g/dL RDW Std Deviation (36.4-46.3) fL RDW Coeff of Rea (11.5-14.5) % Lymph # (Auto) (1.2-3.4) K/uL Immature Gran # (Auto) (0.00-0.02) K/uL BUN (6-23) mg/dl Glucose (70-99(Fasting)) mg/dl POC Glucose 178 H (70-99) mg/dl Calcium (8.5-10.1) mg/dl Triglycerides (0-150) mg/dl
--- NOTE | 2021-11-06 15:02 | Pharmacy Report ---
Pharmacy PN Initial Consult - Date of Service November 06, 2021 - Scope Pharmacy has been consulted to manage parenteral nutrition orders and order appropriate labs. As part of the Nutrition Support Team guidelines, pharmacy will work in conjunction with dietary when determining the patients caloric needs. - Subjective The patient is a 71 year old M admitted on 10/26/21 11:40 for Colon Cancer. Patient is to receive parenteral nutrition for poor PO intake. Postop ileus vs SBO concerns - Objective Height: 5 ft 9 in Weight: 108.8 kg Intake & Output (Last 24Hrs): Intake & Output 11/04/21 11/05/21 11/06/21 11/07/21 06:59 06:59 06:59 06:59 Intake Total 2101.0 / 2101.0 2858.333 / 2858.333 1283.333 / 1283.333 Output Total 800 / 800 301 / 301 350 / 350 Balance -800 / -800 2101.0 / 2101.0 2557.333 / 2557.333 933.333 / 933.333 Weight 108.5 kg 107.8 kg 108.8 kg 108.8 kg Laboratory Data (Last 24 Hrs):: 11/06/21 11/06/21 07:04 07:40 Sodium 137 Potassium 3.7 Chloride 103 Carbon Dioxide 29 BUN 28 H Creatinine 1.40 Glucose 129 H Calcium 7.7 L Phosphorus 3.4 Magnesium 1.7 Triglycerides 220 H Nutrition Assessment:: Please refer to the Notes section of the EMR for the most recent practicing urologist note. - Plan Consulted to started TPN for patient today. Patient with poorer intake over last week. Notes mention ileus vs. SBO concerns. LR @80 ml/hr running currently. Discussed with surgery and try and maintain total fluids (LR+TPN @80 ml/hr). Will start conservatively with day 1 of TPN today at about ~60% of Kcal goal For day 1 of PN administration, the following will be ordered: Macronutrients Amino acids 77 grams/day Dextrose 134 grams/day Lipids 50 grams/day Micronutrients Sodium chloride 40 mEq Sodium acetate 40 mEq Potassium phosphate 21 mMol Magnesium sulfate 8.12 mEq Calcium gluconate 4.65 mEq Multivitamins 10 mL Trace Elements 10 mL Additional additives: 10 units insulin Total volume 1027 mL to be infused over 42 hrs will provide ~1264 kcal/day Labs to be ordered per PN order protocol Pharmacy will follow and adjust parenteral nutrition orders on a daily basis. Thank you.
[2021-11-06] MEDS ORDERED: DEXTROSE 10% 1,000 ML IV PRN (16:00)
[2021-11-06] MEDS ORDERED: CENTRAL TPN IV SCH (16:00)
[2021-11-06] MEDS ORDERED: [UNRECOGNIZED DRUG - OTHER] IV SCH (16:00)
[2021-11-06] MEDS ORDERED: CLINOLIPID 20% IV FAT EMULSION 250 ML IV SCH (16:00)
[2021-11-06] MEDS ORDERED: AMINO ACID 8% IV SCH (16:00)
[2021-11-06] MEDS: oxyCODONE/ACETAMINOPHEN 5mg/325mg TAB PO PRN (18:06)
[2021-11-06] MEDS ORDERED: LACTATED RINGER'S 1,000 ML IV SCH (22:00)
[2021-11-06] MEDS ORDERED: STOP CLINOLIPID ONE (22:00)
[2021-11-07 06:24] LABS: BUN Creatinine Ratio 20.9 (10-20); Calcium 7.6 mg/dl (8.5-10.1); Creatinine Clr Calc Pharmacy 62.9 ml/min; Est GFR (African American) 63.8 ml/min; Magnesium 1.7 mg/dl (1.7-2.4); Potassium 3.4 mmol/L (3.5-5.1)
--- NOTE | 2021-11-07 07:43 | Surgery Progress Note ---
Date of Service November 07, 2021 Assessment & Plan (1) Colon cancer: Plan: POD#12 At this time appears the patient may be turning the corner as far as resuming his GI function although we have been here before where he starts having some nausea therefore at this time we will continue with hyperal he has been out of bed yesterday we will continue to increase his activity At this time discussed the fluid status with the medical service was specially with retention pedal edema they will address the issue regarding diuresing on electrolyte replacement I suspect the patient will be here another 3 or 4 days to fully recovers we will continue hyper L at this time until we will certain that his GI function is fairly back to normal POD#11 Patient is 11 days postop laparoscopic assisted right colon resection for an adenocarcinoma path noted discussed with patient before He has had a protracted postoperative period but appeared to be an ileus versus a small bowel obstruction and every time we tried to feed him off and on when he felt better he would vomit At this time the patient would like more solid food and will advance it but I am concerned that this will not last long and his nutritional status and oral intake has been marginal since surgery therefore we will insert a PICC line anticipation that he may need some hyperalimentation for I feel that it may take a few more days until his bowel function would return to normal and his oral intake would be sufficient We are treating this is a postoperative ileus but I cannot definitely exclude that he may have an element of bowel obstruction likely incomplete All question answered Labs this morning PRP is pending PatientPostop day #10 right colon resection Surgical pathology showed adenocarcinoma Postoperative ileus yesterday was therefore made n.p.o.: -Continue IV fluid until certain his oral intake will be adequate -Awaiting a.m. labs this morning -Recheck KUB this morning which is currently pending -Patient has had return of bowel function may consider initiating sips of clear liquids if his KUB is acceptable Subcu heparin is in place for DVT prevention as above. stating he had bms and the nausea has completely resolved. no pain. +bs's. desperately wants something to drink. kub still showing ileus pattern but sometimes xrays lag...clinically doing great. will allow him to try some clears today. Admission and Anticipated Discharge Date Admission Date: October 26, 2021 Subjective States feels better than yesterday was not able to tolerate some solid food without any nausea Had a large liquid bowel movement this morning States his belly is a little bit softer but his feet are getting more swollen Physical Exam Physical Exam: Alert coherent resting comfortable without any issues Abdominal incision is intact minimal to no drainage on the gauze mostly bloody in the inferior aspect of the incision where the drain from the subcu it exited The ecchymosis in the lower belly is resolving likely all related to the subcu heparin injection The abdomen is much softer than yesterday there is no tenderness but still prominent and normally he does have a very prominent abdomen +2-+3 pedal edema Results & Data ([facility]) Vital Signs (Past 12 Hours) Vital Signs Temp Pulse Pulse Resp BP Pulse Ox 11/07/21 07:21 64 11/07/21 03:32 37.1 C 68 18 116/57 L 95 11/07/21 01:48 61 11/06/21 22:45 36.8 C 54 L 18 101/46 L 93 11/06/21 19:55 36.7 C 72 18 123/62 94 PG Care Time/CCT Total # of Minutes Spent Total Time Spent with Patient: Total time spent is greater than 50% in coordination of care (as documented) at patient's floor/unit and/or counseling patient: Coding Level of Care Code None Diagnoses Colon cancer C18.9
[2021-11-07] MEDS ORDERED: POTASSIUM CHLORIDE CRTAB 20 MEQ TABCR PO STA ×2 (07:59→08:40)
[2021-11-07] MEDS ORDERED: POTASSIUM CHLORIDE / WTR 10 MEQ/100 ML PLCT IV ONE (08:30)
[2021-11-07] MEDS ORDERED: FUROSEMIDE 40 MG/4 ML VIAL IV SCH (09:00)
[2021-11-07] MEDS: METOPROLOL TARTRATE 25 MG TAB PO SCH ×2 (09:34→19:43)
[2021-11-07] MEDS: INSULIN GLARGINE SOLOSTAR 100 UNITS/ML 3 ML PEN SC SCH (09:35)
[2021-11-07] MEDS: HEPARIN SOD 5,000 UNIT/0.5 ML VIAL SQ SCH (09:36)
[2021-11-07] MEDS: INSULIN ASPART PER UNIT SC SCH ×4 (09:36→21:28)
--- NOTE | 2021-11-07 10:38 | Hospitalist Progress Note ---
Date of Service November 07, 2021 Assessment & Plan (1) Colon cancer: Plan: S/P day #12 Laparoscopic Assisted Colon Resection, Umbilical Hernia Repair performed by Dr. Arnol MD Distended air-filled loops of large and small bowel are suggestive of post operative ileus. Had post op ileus NG tube was discontinued on 10/29 CT abd/P done on 11/03/21 showed possible post op incision site hematoma, no evidence of dehiscence Patient still not having good bowel recovery with intermittent ileus. Hence poor oral intake Got a PICC line and started on TPN Discussed with Dr Ambrose. In view of scrotal/penile edema, will discontinue IVF for now. Patient have a good po intake so far today. Will give on dose of lasix and monitor edema. May diurese as needed. Monitor electrolytes and replete as needed Continue TPN. May discontinue as oral intake improves Paroxysmal Atrial Fibrillation Cardiology evaluated Not a candidate for anticoagulation at this time in view of recent surgery On po metoprolol DM type 2 Most recent hemoglobin A1c 8.7 Continue to hold PO diabetic med Continue Lantus and insulin sliding scale Glycemic pharm on board for glycemic management especially while NPO CKD stage III Creatinine 1.29 Continue monitor BMP Anemia Patient stable in 8s DVT prophylaxis - heparin subcu CODE STATUS full code Admission and Anticipated Discharge Date Admission Date: October 26, 2021 Subjective Patient seen and examined Patient had post op ileus and slow bowel recovery. Was started on TPN yesterday Tolerating some oral intake. Reported BM earlier Denied any nausea, vomiting Denies any chest pain, cough, shortness of breath, palpitations Denies any fevers, chills Physical Exam Constitutional: + well hydrated and + obese; no acute distress Eyes: PERRL, conjunctivae normal, anicteric sclerae ENMT: external ear and nose normal, oropharynx normal Respiratory: normal respiratory effort, lungs clear to auscultation Cardiovascular: Rate/Rhythm: regular rate and regular rhythm S1 S2 Gastrointestinal (Abdomen): Mild distended, clean dressing over surgical site, no tenderness, +BS Neurologic: PERRL, EOMI, accommodation nl, no face palsy, no dysarthria Psychiatric: A+Ox3, euthymic affect Genitourinary: Scrotal and pedal edema Results & Data Results & Data ([facility]) Vital Signs (Past 12 Hours) Vital Signs Temp Pulse Pulse Pulse Resp BP Pulse Ox 11/07/21 08:00 36.5 C 66 18 120/71 98 11/07/21 07:21 64 11/07/21 03:32 37.1 C 68 18 116/57 L 95 11/07/21 01:48 61 11/06/21 22:45 36.8 C 54 L 18 101/46 L 93 Laboratory Results Abnormal lab results 11/06/21 11/06/21 11/07/21 Range/Units 16:21 20:32 05:49 Potassium 3.4 L (3.5-5.1) mmol/L BUN 27 H (6-23) mg/dl BUN/Creatinine Ratio 20.9 H (10-20) Glucose 203 H (70-99(Fasting)) mg/dl POC Glucose 113 H 191 H (70-99) mg/dl Calcium 7.6 L (8.5-10.1) mg/dl 11/07/21 11/07/21 Range/Units 07:17 11:29 Potassium (3.5-5.1) mmol/L BUN (6-23) mg/dl BUN/Creatinine Ratio (10-20) Glucose (70-99(Fasting)) mg/dl POC Glucose 222 H 224 H (70-99) mg/dl Calcium (8.5-10.1) mg/dl
--- NOTE | 2021-11-07 12:18 | Pharmacy Report ---
Pharmacy Glycemic Short Note 2 - Date of Service November 07, 2021 - Glycemic Short BSG Results (Last 24 hours): 11/06/21 11/06/21 11/07/21 16:21 20:32 05:49 Glucose 203 H POC Glucose 113 H 191 H 11/07/21 11/07/21 07:17 11:29 Glucose POC Glucose 222 H 224 H OUTPATIENT ANTIDIABETIC REGIMEN: * Lantus 60 units qAM + 36 units qPM * Alogliptin 12.5 mg PO daily * metformin 1000 mg BIDM * Jardiance 10 mg daily * HbA1c: 8.7% (10/27/21) ASSESSMENT: 11/07/21 * Patient's BSGs yesterday were [phone] mg/dL and fasting today is 222 mg/dL. * Patient received 62 units of insulin yesterday (40 units of basal plus 22 units of bolus). Also receiving 10 units IV in TPN. * Established when patient was NPO that true basal rate is ~ 30 units/day. Will increase to 40 units daily while eating + TPN. * Increase insulin in TPN to CR of 7 (20 units starting at 1600 today). * Continue tight Novolog to provide extra coverage. Add overnight checks for 24 hour coverage. 11/05/21: * Diet advanced to clears today, but PO intake still minimal * BSGs reasonable so far today, 149 and 157 mg/dL, continue current Novolog parameters * Will scale Lantus to likely provide reduced basal dose today 11/04/21: * Patient developed nausea/vomiting this morning and has been made NPO since that time * Despite elevated fasting BSG of 208 mg/dL, will decrease Lantus today * No change to Novolog parameters today * Plan is to advance diet as tolerated once nausea and vomiting has resolved and bowel function has improved 11/03/21: * Patient received a total of 73 units yesterday (35 units of basal + 38 units bolus) * Fasting BSG of 207 mg/dL remains elevated despite recent increases in Lantus doses, however doses are significantly less than home usage. Continue to titrate as needed. * Novolog parameters appear to be working well. No change today. 11/01/21: * Patient received a total of 46 units yesterday with poor glycemic control * Fasting BSG of 197 mg/dL. The past two days patient has received no basal insulin at bedtime due to BSG at goal. Will remove zero dose from scale so that he receives a minimum of 5 units HS. * Tighten correction factor. Background * Mr Boykin is a 71 y/o M with a PMH of T2DM who presents s/p surgery for colon cancer. * Patient's BSGs yesterday were [phone] mg/dL. Fasting today is 168 mg/dL. * Patient received 11 units of insulin yesterday (5 units of basal and 6 units of bolus). * Patient is going into the third full day of NPO status so expect glycogen levels to see be depleted. * Continue current regimen as all BSGs less than 180 mg/dL. PLAN FOR INPATIENT GLYCEMIC CONTROL: * Hold outpatient oral diabetes medications * Basal insulin * Lantus 20 units BID * Bolus insulin * NovoLog per scale ACHS or Q6hrs while NPO * Goal Range: Low 110 mg/dL - High 140 mg/dL * Correction Factor: 12 mg/dL/unit * Nutritional / Prandial insulin per carb ratio of 1 unit per 5 grams CHO consumed PLAN FOR DISCHARGE: * A1c 8.7% - insulin requirements during hospital stay much less than outpatient needs. Will continue to follow to determine if continuation of outpatient regimen is appropriate.
[2021-11-07] MEDS ORDERED: CENTRAL TPN IV SCH (16:00)
[2021-11-07] MEDS ORDERED: [UNRECOGNIZED DRUG - OTHER] IV SCH (16:00)
[2021-11-07] MEDS ORDERED: AMINO ACID 8% IV SCH (16:00)
[2021-11-07] MEDS ORDERED: CLINOLIPID 20% IV FAT EMULSION 250 ML IV SCH (16:00)
[2021-11-07] MEDS ORDERED: INSULIN GLARGINE SOLOSTAR 100 UNITS/ML 3 ML PEN SC SCH (21:00)
[2021-11-07] MEDS ORDERED: STOP CLINOLIPID ONE (22:00)
[2021-11-08] MEDS: INSULIN ASPART PER UNIT SC SCH ×6 (00:32→21:28)
[2021-11-08 06:44] LABS: BUN Creatinine Ratio 16.1 (10-20); Calcium 7.6 mg/dl (8.5-10.1); Creatinine Clr Calc Pharmacy 41.2 ml/min; Est GFR (African American) 37.8 ml/min; Est GFR (Non-African American) 32.6 ml/min; Magnesium 1.6 mg/dl (1.7-2.4); Phosphorus 3.3 mg/dl (2.5-4.9); Potassium 3.8 mmol/L (3.5-5.1)
--- NOTE | 2021-11-08 07:34 | Surgery Progress Note ---
Date of Service November 08, 2021 Assessment & Plan (1) Colon cancer: Plan: pod#13 Lab is pending this morning At this time we will continue with hyperalimentation since oral intake has never been reestablished and normal We will obtain a KUB of the abdomen to follow-up on what was a possible ileus versus obstruction last image approximately 48 hours or so ago Discussed in detail with the patient at this point will we will continue to support him with hyperalimentation and hopefully we can get him out of the hospital soon as possible POD#12 At this time appears the patient may be turning the corner as far as resuming his GI function although we have been here before where he starts having some nausea therefore at this time we will continue with hyperal he has been out of bed yesterday we will continue to increase his activity At this time discussed the fluid status with the medical service was specially with retention pedal edema they will address the issue regarding diuresing on electrolyte replacement I suspect the patient will be here another 3 or 4 days to fully recovers we will continue hyper L at this time until we will certain that his GI function is fairly back to normal POD#11 Patient is 11 days postop laparoscopic assisted right colon resection for an adenocarcinoma path noted discussed with patient before He has had a protracted postoperative period but appeared to be an ileus versus a small bowel obstruction and every time we tried to feed him off and on when he felt better he would vomit At this time the patient would like more solid food and will advance it but I am concerned that this will not last long and his nutritional status and oral intake has been marginal since surgery therefore we will insert a PICC line anticipation that he may need some hyperalimentation for I feel that it may take a few more days until his bowel function would return to normal and his oral intake would be sufficient We are treating this is a postoperative ileus but I cannot definitely exclude that he may have an element of bowel obstruction likely incomplete All question answered Labs this morning PRP is pending PatientPostop day #10 right colon resection Surgical pathology showed adenocarcinoma Postoperative ileus yesterday was therefore made n.p.o.: -Continue IV fluid until certain his oral intake will be adequate -Awaiting a.m. labs this morning -Recheck KUB this morning which is currently pending -Patient has had return of bowel function may consider initiating sips of clear liquids if his KUB is acceptable Subcu heparin is in place for DVT prevention as above. stating he had bms and the nausea has completely resolved. no pain. +bs's. desperately wants something to drink. kub still showing ileus pattern but sometimes xrays lag...clinically doing great. will allow him to try some clears today. Admission and Anticipated Discharge Date Admission Date: October 26, 2021 Subjective Did not eat much yesterday did not have much of an appetite denies nausea this morning he is hungry He states he has had 4 bowel movements overnight liquid (I was unable to find any documentation of this) Denies any abdominal pain he feels a bit better than yesterday but not a lot he had been up in a chair quite a bit yesterday He states his passes urine every couple hours Physical Exam Physical Exam: Is alert coherent in bed resting comfortable in no real distress The abdomen is a bit softer than yesterday the incision is intact there is no redness in the incision the dressing was changed has some bloody drainage in the inferior aspect at the [place] site where it was coming through the skin no marked tenderness appreciated He has less pedal edema probably a +1 at most this morning Results & Data ([facility]) Vital Signs (Past 12 Hours) Vital Signs Temp Pulse Pulse Resp BP Pulse Ox 11/08/21 04:12 37 C 67 18 117/58 L 94 11/07/21 23:28 36.8 C 123 H 18 115/57 L 97 11/07/21 23:04 65 11/07/21 19:49 37.1 C 71 18 137/65 93 PG Care Time/CCT Total # of Minutes Spent Total Time Spent with Patient: Total time spent is greater than 50% in coordination of care (as documented) at patient's floor/unit and/or counseling patient: Coding Level of Care Code None Diagnoses Colon cancer C18.9
[2021-11-08 08:16] LABS: Basophils # (auto) 0.02 K/uL (0-0.2); Basophils % (auto) 0.3 %; Eosinophils # (auto) 0.14 K/uL (0-0.5); Eosinophils % (auto) 1.8 %; Hematocrit (blood only) 25.7 % (42-52); Immature Granulocytes # (auto) 0.06 K/uL (0.00-0.02); Immature Granulocytes % (auto) 0.8 %; Lymphocytes # (auto) 1.04 K/uL (1.2-3.4); Lymphocytes % (auto) 13.2 %; Mean Corpuscular Hemoglobin 26.9 pg (25-34); Mean Corpuscular Hgb Conc 31.1 g/dL (32-36); Mean Corpuscular Volume 86.5 fL (80-100); Mean Platelet Volume 9.3 fL (7.4-10.4); Monocytes # (auto) 0.55 K/uL (0.11-0.59); Neutrophils # (auto) 6.05 K/uL (1.4-6.5); Neutrophils % (auto) 76.9 %; Platelet Count 259 K/uL (130-400); RDW Coefficient of Variation 16.4 % (11.5-14.5); RDW Standard Deviation 52.2 fL (36.4-46.3); Red Blood Count 2.97 M/uL (4.7-6.1); White Blood Count 7.86 K/uL (4.8-10.8)
[2021-11-08] MEDS: INSULIN GLARGINE SOLOSTAR 100 UNITS/ML 3 ML PEN SC SCH (08:20)
[2021-11-08] MEDS: HEPARIN SOD 5,000 UNIT/0.5 ML VIAL SQ SCH (08:23)
[2021-11-08] MEDS: METOPROLOL TARTRATE 25 MG TAB PO SCH ×2 (08:24→19:40)
[2021-11-08 08:44] LABS: Albumin Level 2.6 gm/dl (3.4-5.0); Bilirubin Direct 0.1 mg/dl (0-0.2); Bilirubin,Total 0.7 mg/dl (0.2-1.0); Total Protein 4.7 gm/dl (6.0-8.3)
[2021-11-08] MEDS ORDERED: MAGNESIUM SULFATE / D5W 1 GM/100 ML BAG IV ONE (10:00)
--- NOTE | 2021-11-08 12:33 | XRay Report ---
KUB CLINICAL HISTORY: Follow-up ileus. FINDINGS: 4 AP supine abdominal radiographs are compared to study dated 11/05/2021 and correlated with abdominal CT dated 11/03/2021. Midline skin clips are noted. Cholecystectomy clips are seen in the ri ght upper quadrant. There is persistent gaseous distention of the small bowel loops which measure up to 4.1 cm. Gas and stool are noted in the colon. No evidence of intraperitoneal free air is seen on t hese supine images. Small renal calculi are noted. The skeletal structures are osteopenic and appear intact. There is moderate lumbosacral spondylosis. IMPRESSION: Mildly dilated loops of small bowel are similar to previous. Findings favor postoperative ileus. Correlate clinically for evidence of bowel obstruction. Electronically signed by: Scott Kincaid M.D. 11/08/2021 12:32 PM
--- NOTE | 2021-11-08 13:52 | Pharmacy Report ---
Pharmacy Glycemic Short Note 2 - Date of Service November 08, 2021 - Glycemic Short BSG Results (Last 24 hours): 11/07/21 11/07/21 11/08/21 16:17 20:29 00:29 Glucose POC Glucose 132 H 225 H 236 H 11/08/21 11/08/21 11/08/21 04:40 05:32 07:36 Glucose 166 H POC Glucose 201 H 175 H 11/08/21 11:35 Glucose POC Glucose 248 H OUTPATIENT ANTIDIABETIC REGIMEN: * Lantus 60 units qAM + 36 units qPM * Alogliptin 12.5 mg PO daily * metformin 1000 mg BIDM * Jardiance 10 mg daily * HbA1c: 8.7% (10/27/21) ASSESSMENT: 11/08/21 * Blood sugars elevated most of yesterday in the 200s with increase in dextrose in TPN and some PO intake * Tighten CF/CR, increase insulin in TPN, and increase basal at this time * continue overnight checks tonight 11/07/21 * Patient's BSGs yesterday were [phone] mg/dL and fasting today is 222 mg/dL. * Patient received 62 units of insulin yesterday (40 units of basal plus 22 units of bolus). Also receiving 10 units IV in TPN. * Established when patient was NPO that true basal rate is ~ 30 units/day. Will increase to 40 units daily while eating + TPN. * Increase insulin in TPN to CR of 7 (20 units starting at 1600 today). * Continue tight Novolog to provide extra coverage. Add overnight checks for 24 hour coverage. 11/05/21: * Diet advanced to clears today, but PO intake still minimal * BSGs reasonable so far today, 149 and 157 mg/dL, continue current Novolog parameters * Will scale Lantus to likely provide reduced basal dose today 11/04/21: * Patient developed nausea/vomiting this morning and has been made NPO since that time * Despite elevated fasting BSG of 208 mg/dL, will decrease Lantus today * No change to Novolog parameters today * Plan is to advance diet as tolerated once nausea and vomiting has resolved and bowel function has improved 11/03/21: * Patient received a total of 73 units yesterday (35 units of basal + 38 units bolus) * Fasting BSG of 207 mg/dL remains elevated despite recent increases in Lantus doses, however doses are significantly less than home usage. Continue to titrate as needed. * Novolog parameters appear to be working well. No change today. 11/01/21: * Patient received a total of 46 units yesterday with poor glycemic control * Fasting BSG of 197 mg/dL. The past two days patient has received no basal insulin at bedtime due to BSG at goal. Will remove zero dose from scale so that he receives a minimum of 5 units HS. * Tighten correction factor. Background * Mr Boykin is a 71 y/o M with a PMH of T2DM who presents s/p surgery for colon cancer. * Patient's BSGs yesterday were [phone] mg/dL. Fasting today is 168 mg/dL. * Patient received 11 units of insulin yesterday (5 units of basal and 6 units of bolus). * Patient is going into the third full day of NPO status so expect glycogen levels to see be depleted. * Continue current regimen as all BSGs less than 180 mg/dL. PLAN FOR INPATIENT GLYCEMIC CONTROL: * Hold outpatient oral diabetes medications * Basal insulin * Lantus 30 units BID * Bolus insulin * NovoLog per scale ACHS or Q6hrs while NPO and overnight tonight at 0000 and 0400 * Goal Range: Low 110 mg/dL - High 140 mg/dL * Correction Factor: 10 mg/dL/unit * Nutritional / Prandial insulin per carb ratio of 1 unit per 4 grams CHO consumed * 25 units of regular insulin inside TPN (providing 218 grams CHO/24 hours) PLAN FOR DISCHARGE: * A1c 8.7% - insulin requirements during hospital stay much less than outpatient needs. Will continue to follow to determine if continuation of outpatient regimen is appropriate.
[2021-11-08] MEDS ORDERED: AMINO ACID 8% IV SCH (16:00)
[2021-11-08] MEDS ORDERED: CLINOLIPID 20% IV FAT EMULSION 125 ML IV SCH (16:00)
[2021-11-08] MEDS ORDERED: CENTRAL TPN IV SCH (16:00)
[2021-11-08] MEDS ORDERED: [UNRECOGNIZED DRUG - OTHER] IV SCH (16:00)
--- NOTE | 2021-11-08 18:55 | Hospitalist Progress Note ---
Date of Service November 08, 2021 Assessment & Plan (1) Colon cancer: Plan: Colon Cancer S/P Laparoscopic Assisted Colon Resection, Umbilical Hernia Repair performed by Dr. Arnol MD on Distended air-filled loops of large and small bowel are suggestive of postoperative ileus. Post op ileus NG tube was discontinued on 10/29 -CT abd/P done on 11/03/21 showed possible post op incision site hematoma, no evidence of dehiscence poor oral intake Got a PICC line and started on TPN Continue TPN until oral intake improves Appreciate surgery input KUB today showed mildly dilated loops of small bowel are similar to previous suggestive of postoperative ileus Paroxysmal Atrial Fibrillation Cardiology evaluated Not a candidate for anticoagulation at this time in view of recent surgery On po metoprolol DM type 2 Most recent hemoglobin A1c 8.7 Continue to hold PO diabetic med Continue Lantus and insulin sliding scale Glycemic pharm on board for glycemic management especially while NPO SHERRI on CKD stage III Cr 1.9 Secondary to lasix Avoid nephrotoxic agents as able Monitor renal function Hypomagnesemia Replace electrolytes as needed Anemia Hb stable in 8s Monitor DVT Px: heparin SQ CODE STATUS full code Admission and Anticipated Discharge Date Admission Date: October 26, 2021 Subjective Patient is seen and examined at bedside States having abdominal discomfort with food intake Had bowel movement today Offers no other complaints Denies any chest pain, shortness of breath, dizziness, nausea Review of Systems Review of Systems: All systems reviewed & are unremarkable except as noted in Subjective Physical Exam Physical Exam: Physical Exam: Vitals signs as noted above General Appearance:Obese, no apparent distress Head: normocephalic, Atraumatic Eyes: normal inspection, EOMI Neck: supple, Trachea midline Respiratory/Chest: Normal breath sounds, CTA, No accessory muscle use Cardiovascular: S1, S2, No murmur Abdomen/GI:Soft, Non tender, +Surgical site in dressing, distended, Bowel sounds present Extremities/Musculoskeletal:normal inspection, B/L LE edema Neurologic/Psych:AAOX3, grossly no focal neurological deficits Skin: normal color, warm Results & Data Results & Data ([facility]) Vital Signs (Past 12 Hours) Vital Signs Temp Pulse Pulse Resp BP Pulse Ox 11/08/21 16:10 36.6 C 84 20 104/67 92 11/08/21 15:00 69 11/08/21 11:55 37.1 C 103 H 20 127/69 100 11/08/21 08:00 37.0 C 67 18 131/72 90 11/08/21 07:00 67 Laboratory Results Short CBC 11/08/21 Range/Units 05:38 WBC 7.86 (4.8-10.8) K/uL Hgb 8.0 L (14.0-18.0) g/dL Hct 25.7 L (42-52) % Plt Count 259 (130-400) K/uL BMP 11/08/21 05:32 Sodium 136 Potassium 3.8 Chloride 103 Carbon Dioxide 29 BUN 32 H Creatinine 1.99 H D Glucose 166 H Calcium 7.6 L Liver Function 11/08/21 Range/Units 05:32 Total Bilirubin 0.7 (0.2-1.0) mg/dl Direct Bilirubin 0.1 (0-0.2) mg/dl AST 30 (13-39) U/L ALT 28 (7-52) U/L Alkaline Phosphatase 69 (34-104) U/L Albumin 2.6 L (3.4-5.0) gm/dl
[2021-11-08] MEDS ORDERED: STOP CLINOLIPID ONE (19:00)
[2021-11-08] MEDS ORDERED: INSULIN GLARGINE SOLOSTAR 100 UNITS/ML 3 ML PEN SC SCH (21:00)
[2021-11-09] MEDS: INSULIN ASPART PER UNIT SC SCH ×6 (00:27→20:47)
[2021-11-09 06:52] LABS: BUN Creatinine Ratio 20.2 (10-20); Calcium 7.6 mg/dl (8.5-10.1); Creatinine Clr Calc Pharmacy 43.4 ml/min; Est GFR (African American) 40.4 ml/min; Est GFR (Non-African American) 34.9 ml/min; Magnesium 1.9 mg/dl (1.7-2.4); Phosphorus 3.3 mg/dl (2.5-4.9); Potassium 4.2 mmol/L (3.5-5.1)
--- NOTE | 2021-11-09 06:55 | Surgery Progress Note ---
Date of Service November 09, 2021 Assessment & Plan (1) Colon cancer: Plan: POD#14 We will await the lab from this morning KUB yesterday although appeared improved my reading radiologist felt that still had an element of an ileus We will stop the heparin but he is only getting it subcu 5000 daily At this point we will continue with hyperalimentation hopefully his oral intake will be sufficient that we can stop it in a day or so pod#13 Lab is pending this morning At this time we will continue with hyperalimentation since oral intake has never been reestablished and normal We will obtain a KUB of the abdomen to follow-up on what was a possible ileus versus obstruction last image approximately 48 hours or so ago Discussed in detail with the patient at this point will we will continue to support him with hyperalimentation and hopefully we can get him out of the hospital soon as possible POD#12 At this time appears the patient may be turning the corner as far as resuming his GI function although we have been here before where he starts having some nausea therefore at this time we will continue with hyperal he has been out of bed yesterday we will continue to increase his activity At this time discussed the fluid status with the medical service was specially with retention pedal edema they will address the issue regarding diuresing on electrolyte replacement I suspect the patient will be here another 3 or 4 days to fully recovers we will continue hyper L at this time until we will certain that his GI function is fairly back to normal POD#11 Patient is 11 days postop 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 discussed with patient before He has had a protracted postoperative period but appeared to be an ileus versus a small bowel obstruction and every time we tried to feed him off and on when he felt better he would vomit At this time the patient would like more solid food and will advance it but I am concerned that this will not last long and his nutritional status and oral i ntake has been marginal since surgery therefore we will insert a PICC line anticipation that he may need some hyperalimentation for I feel that it may take a few more days until his bowel function would return to normal and his oral intake would be sufficient We are treating this is a postoperative ileus but I cannot definitely exclude that he may have an element of bowel obstruction likely incomplete All question answered Labs this morning PRP is pending PatientPostop day #10 right colon resection Surgical pathology showed adenocarcinoma Postoperative ileus yesterday was therefore made n.p.o.: -Continue IV fluid until certain his oral intake will be adequate -Awaiting a.m. labs this morning -Recheck KUB this morning which is currently pending -Patient has had return of bowel function may consider initiating sips of clear liquids if his KUB is acceptable Subcu heparin is in place for DVT prevention as above. stating he had bms and the nausea has completely resolved. no pain. +bs's. desperately wants something to drink. kub still showing ileus pattern but sometimes xrays lag...clinically doing great. will allow him to try some clears today. Admission and Anticipated Discharge Date Admission Date: October 26, 2021 Subjective He had a fairly good day yesterday he try to eat some food which tolerated not a significant amount he denied any nausea he continues to move his bowels Physical Exam Physical Exam: Alert coherent no distress The abdomen is softer than yesterday moderate amount ecchymosis both lower quadrants away from the incision There is no tenderness no guarding The incision itself is intact in the inferior aspect he continues to have dark blood coming out I suspect related to the abdominal wall hematoma Results & Data ([facility] Vital Signs (Past 12 Hours) Vital Signs Temp Pulse Pulse Pulse Resp BP Pulse Ox 11/09/21 04:02 85 16 127/74 93 11/08/21 23:00 36.7 C 66 71 16 123/65 95 11/08/21 19:35 37.2 C 84 18 133/65 96 PG Care Time/CCT Total # of Minutes Spent Total Time Spent with Patient: Total time spent is greater than 50% in coordination of care (as documented) at patient's floor/unit and/or counseling patient: Coding Level of Care Code None Diagnoses Colon cancer C18.9
[2021-11-09 07:10] LABS: Basophils # (auto) 0.01 K/uL (0-0.2); Basophils % (auto) 0.1 %; Eosinophils # (auto) 0.18 K/uL (0-0.5); Eosinophils % (auto) 1.9 %; Hematocrit (blood only) 24.6 % (42-52); Hemoglobin 7.8 g/dL (14.0-18.0); Immature Granulocytes # (auto) 0.06 K/uL (0.00-0.02); Immature Granulocytes % (auto) 0.6 %; Lymphocytes # (auto) 0.82 K/uL (1.2-3.4); Lymphocytes % (auto) 8.9 %; Mean Corpuscular Hemoglobin 26.9 pg (25-34); Mean Corpuscular Hgb Conc 31.7 g/dL (32-36); Mean Corpuscular Volume 84.8 fL (80-100); Monocytes # (auto) 0.76 K/uL (0.11-0.59); Monocytes % (auto) 8.2 %; Neutrophils # (auto) 7.42 K/uL (1.4-6.5); Neutrophils % (auto) 80.3 %; Platelet Count 247 K/uL (130-400); RDW Coefficient of Variation 16.3 % (11.5-14.5); RDW Standard Deviation 50.5 fL (36.4-46.3); White Blood Count 9.25 K/uL (4.8-10.8)
[2021-11-09 07:47] LABS: Hypochromasia Present; Microcytosis Present
[2021-11-09] MEDS: METOPROLOL TARTRATE 25 MG TAB PO SCH ×2 (10:00→20:50)
[2021-11-09] MEDS: INSULIN GLARGINE SOLOSTAR 100 UNITS/ML 3 ML PEN SC SCH (10:02)
[2021-11-09] MEDS ORDERED: [UNRECOGNIZED DRUG - OTHER] IV SCH (16:00)
[2021-11-09] MEDS ORDERED: CENTRAL TPN IV SCH (16:00)
[2021-11-09] MEDS ORDERED: AMINO ACID 8% IV SCH (16:00)
--- NOTE | 2021-11-09 17:30 | Hospitalist Progress Note ---
Date of Service November 09, 2021 Assessment & Plan (1) Colon cancer: Plan: Colon Cancer S/P Laparoscopic Assisted Colon Resection, Umbilical Hernia Repair performed by Dr. Arnol MD on Distended air-filled loops of large and small bowel are suggestive of postoperative ileus. Post op ileus NG tube was discontinued on 10/29 -CT abd/P done on 11/03/21 showed possible post op incision site hematoma, no evidence of dehiscence poor oral intake Got a PICC line and started on TPN Continue TPN until oral intake improves Appreciate surgery input KUB today showed mildly dilated loops of small bowel are similar to previous suggestive of postoperative ileus Had BM today Slowly Improving Paroxysmal Atrial Fibrillation Cardiology evaluated Not a candidate for anticoagulation at this time in view of recent surgery On po metoprolol DM type 2 Most recent hemoglobin A1c 8.7 Continue to hold PO diabetic Continue Lantus and insulin sliding scale Glycemic pharm on board for glycemic management especially while NPO SHERRI on CKD stage III Cr 1.9>1.8 Secondary to Lasix Avoid nephrotoxic agents as able Monitor renal function Hypomagnesemia Replace electrolytes as needed Anemia Hb stable in 8s Monitor DVT Px: heparin SQ CODE STATUS full code Admission and Anticipated Discharge Date Admission Date: October 26, 2021 Subjective Patient is seen and examined at bedside States doing much better today No new complaints No significant pain at surgical site Had BM Oral intake slowly improving Denies any chest pain, shortness of breath, dizziness, nausea Review of Systems Review of Systems: All systems reviewed & are unremarkable except as noted in Subjective Physical Exam Physical Exam: Physical Exam: Vitals signs as noted above General Appearance:Obese, no apparent distress Head: normocephalic, Atraumatic Eyes: normal inspection, EOMI Neck: supple, Trachea midline Respiratory/Chest: Normal breath sounds, CTA, No accessory muscle use Cardiovascular: S1, S2, No murmur Abdomen/GI:Soft, Non tender, +Surgical site in dressing, distended, Bowel sounds present Extremities/Musculoskeletal:normal inspection, B/L LE edema Neurologic/Psych:AAOX3, grossly no focal neurological deficits Skin: normal color, warm Results & Data Results & Data ([facility]) Vital Signs (Past 12 Hours) Vital Signs Temp Pulse Resp BP Pulse Ox 11/09/21 16:14 36.7 C 75 16 130/70 97 11/09/21 12:00 36.9 C 60 16 128/68 95 11/09/21 07:30 36.8 C 54 L 18 130/64 97 Laboratory Results Short CBC 11/09/21 Range/Units 05:57 WBC 9.25 (4.8-10.8) K/uL Hgb 7.8 L (14.0-18.0) g/dL Hct 24.6 L (42-52) % Plt Count 247 (130-400) K/uL BMP 11/09/21 05:53 Sodium 136 Potassium 4.2 Chloride 104 Carbon Dioxide 27 BUN 38 H Creatinine 1.88 H Glucose 156 H Calcium 7.6 L
[2021-11-09] MEDS: CARBOHYDRATES FOR HYPOGLYCEMIA PO PRN ×3 (20:44→21:10)
[2021-11-09] MEDS ORDERED: INSULIN GLARGINE SOLOSTAR 100 UNITS/ML 3 ML PEN SC SCH (21:00)
[2021-11-10] MEDS: INSULIN ASPART PER UNIT SC SCH ×6 (00:46→21:02)
[2021-11-10 07:36] LABS: Basophils # (auto) 0.02 K/uL (0-0.2); Basophils % (auto) 0.2 %; Eosinophils # (auto) 0.17 K/uL (0-0.5); Eosinophils % (auto) 1.9 %; Hematocrit (blood only) 26.9 % (42-52); Hemoglobin 8.2 g/dL (14.0-18.0); Immature Granulocytes # (auto) 0.07 K/uL (0.00-0.02); Immature Granulocytes % (auto) 0.8 %; Lymphocytes # (auto) 0.93 K/uL (1.2-3.4); Lymphocytes % (auto) 10.4 %; Mean Corpuscular Hemoglobin 26.4 pg (25-34); Mean Corpuscular Hgb Conc 30.5 g/dL (32-36); Mean Corpuscular Volume 86.5 fL (80-100); Mean Platelet Volume 8.9 fL (7.4-10.4); Monocytes % (auto) 7.8 %; Neutrophils # (auto) 7.04 K/uL (1.4-6.5); Neutrophils % (auto) 78.9 %; Platelet Count 243 K/uL (130-400); RDW Coefficient of Variation 16.5 % (11.5-14.5); RDW Standard Deviation 52.4 fL (36.4-46.3); Red Blood Count 3.11 M/uL (4.7-6.1); White Blood Count 8.93 K/uL (4.8-10.8)
--- NOTE | 2021-11-10 07:41 | Surgery Progress Note ---
Date of Service November 10, 2021 Assessment & Plan (1) Colon cancer: Plan: POD#15 This morning took a few jamey out of the incision and was able to probe the incision in both direction with a Q-tip the fascia is intact The patient continues to move his bowels and appears to be tolerating his diet somewhat I suspected patient may have a partial small bowel obstruction that may be slowly resolving Lab this morning is pending We will continue with hyperalimentation until his oral intake is sufficient [facility] covering this weekend POD#14 We will await the lab from this morning KUB yesterday although appeared improved my reading radiologist felt that still had an element of an ileus We will stop the heparin but he is only getting it subcu 5000 daily At this point we will continue with hyperalimentation hopefully his oral intake will be sufficient that we can stop it in a day or so pod#13 Lab is pending this morning At this time we will continue with hyperalimentation since oral intake has never been reestablished and normal We will obtain a KUB of the abdomen to follow-up on what was a possible ileus versus obstruction last image approximately 48 hours or so ago Discussed in detail with the patient at this point will we will continue to support him with hyperalimentation and hopefully we can get him out of the hospital soon as possible POD#12 At this time appears the patient may be turning the corner as far as resuming his GI function although we have been here before where he starts having some nausea therefore at this time we will continue with hyperal he has been out of bed yesterday we will continue to increase his activity At this time discussed the fluid status with the medical service was specially with retention pedal edema they will address the issue regarding diuresing on electrolyte replacement I suspect the patient will be here another 3 or 4 days to fully recovers we will continue hyper L at this time until we will certain that his GI function is fairly back to normal POD#11 Patient is 11 days postop laparoscopic assisted right colon resection for an adenocarcinoma path noted discussed with patient before He has had a protracted postoperative period but appeared to be an ileus versus a small bowel obstruction and every time we tried to feed him off and on when he felt better he would vomit At this time the patient would like more solid food and will advance it but I am concerned that this will not last long and his nutritional status and oral intake has been marginal since surgery therefore we will insert a PICC line anticipation that he may need some hyperalimentation for I feel that it may take a few more days until his bowel function would return to normal and his oral intake would be sufficient We are treating this is a postoperative ileus but I cannot definitely exclude that he may have an element of bowel obstruction likely incomplete All question answered Labs this morning PRP is pending PatientPostop day #10 right colon resection Surgical pathology showed adenocarcinoma Postoperative ileus yesterday was therefore made n.p.o.: -Continue IV fluid until certain his oral intake will be adequate -Awaiting a.m. labs this morning -Recheck KUB this morning which is currently pending -Patient has had return of bowel function may consider initiating sips of clear liquids if his KUB is acceptable Subcu heparin is in place for DVT prevention as above. stating he had bms and the nausea has completely resolved. no pain. +bs's. desperately wants something to drink. kub still showing ileus pattern but sometimes xrays lag...clinically doing great. will allow him to try some clears today. Admission and Anticipated Discharge Date Admission Date: October 26, 2021 Subjective Was able to eat a little bit more yesterday although he really does not like the food He denies any nausea or any abdominal pain continues to have bowel movements Physical Exam Physical Exam: Alert comfortable without any complaints The abdomen is without any tenderness moderate amount of bloody drainage from the incision and ecchymosis noted in the lower quadrants pretty much unchanged According to the patient the abdomen is pretty prominent as it has been pretty much even before surgery Results & Data ([facility]) Vital Signs (Past 12 Hours) Vital Signs Temp Pulse Pulse Resp BP Pulse Ox 11/10/21 04:45 36.7 C 73 18 111/66 95 11/10/21 01:19 69 11/10/21 00:21 36.5 C 80 18 128/70 95 11/09/21 20:11 36.7 C 79 16 112/66 95 PG Care Time/CCT Total # of Minutes Spent Total Time Spent with Patient: Total time spent is greater than 50% in coordination of care (as documented) at patient's floor/unit and/or counseling patient: Coding Level of Care Code None Diagnoses Colon cancer C18.9
[2021-11-10 07:55] LABS: BUN Creatinine Ratio 26.8 (10-20); Calcium 7.9 mg/dl (8.5-10.1); Est GFR (Non-African American) 56.1 ml/min; Magnesium 1.8 mg/dl (1.7-2.4); Phosphorus 3.4 mg/dl (2.5-4.9); Potassium 4.7 mmol/L (3.5-5.1)
[2021-11-10] MEDS: INSULIN GLARGINE SOLOSTAR 100 UNITS/ML 3 ML PEN SC SCH ×2 (08:16→21:01)
[2021-11-10] MEDS: METOPROLOL TARTRATE 25 MG TAB PO SCH ×2 (08:16→20:07)
--- NOTE | 2021-11-10 14:02 | Pharmacy Report ---
Pharmacy Glycemic Short Note 2 - Date of Service November 10, 2021 - Glycemic Short BSG Results (Last 24 hours): 11/09/21 11/09/21 11/09/21 15:42 16:45 18:20 Glucose POC Glucose 112 H 67 L* 112 H 11/09/21 11/09/21 11/09/21 20:36 20:53 21:10 Glucose POC Glucose 67 L* 64 L* 66 L* 11/09/21 11/10/21 11/10/21 21:24 00:21 03:47 Glucose POC Glucose 75 164 H 185 H 11/10/21 11/10/21 11/10/21 07:11 08:02 11:40 Glucose 154 H POC Glucose 172 H 162 H OUTPATIENT ANTIDIABETIC REGIMEN: * Lantus 60 units qAM + 36 units qPM * Alogliptin 12.5 mg PO daily * metformin 1000 mg BIDM * Jardiance 10 mg daily * HbA1c: 8.7% (10/27/21) ASSESSMENT: 11/10/21 * BSGs yesterday were [phone] mg/dL. Fasting today is 172 mg/dL. * Patient received 109 units of insulin yesterday (30 units of basal and 79 units of bolus). * Since patient was having hypoglycemia yesterday, will return to basal rate of 40 units. * Loosen Novolog as BSGs trend down. Decrease insulin in TPN. 11/08/21 * Blood sugars elevated most of yesterday in the 200s with increase in dextrose in TPN and some PO intake * Tighten CF/CR, increase insulin in TPN, and increase basal at this time * continue overnight checks tonight 11/07/21 * Patient's BSGs yesterday were [phone] mg/dL and fasting today is 222 mg/dL. * Patient received 62 units of insulin yesterday (40 units of basal plus 22 units of bolus). Also receiving 10 units IV in TPN. * Established when patient was NPO that true basal rate is ~ 30 units/day. Will increase to 40 units daily while eating + TPN. * Increase insulin in TPN to CR of 7 (20 units starting at 1600 today). * Continue tight Novolog to provide extra coverage. Add overnight checks for 24 hour coverage. 11/05/21: * Diet advanced to clears today, but PO intake still minimal * BSGs reasonable so far today, 149 and 157 mg/dL, continue current Novolog parameters * Will scale Lantus to likely provide reduced basal dose today 11/04/21: * Patient developed nausea/vomiting this morning and has been made NPO since that time * Despite elevated fasting BSG of 208 mg/dL, will decrease Lantus today * No change to Novolog parameters today * Plan is to advance diet as tolerated once nausea and vomiting has resolved and bowel function has improved 11/03/21: * Patient received a total of 73 units yesterday (35 units of basal + 38 units bolus) * Fasting BSG of 207 mg/dL remains elevated despite recent increases in Lantus doses, however doses are significantly less than home usage. Continue to titrate as needed. * Novolog parameters appear to be working well. No change today. 11/01/21: * Patient received a total of 46 units yesterday with poor glycemic control * Fasting BSG of 197 mg/dL. The past two days patient has received no basal insulin at bedtime due to BSG at goal. Will remove zero dose from scale so that he receives a minimum of 5 units HS. * Tighten correction factor. Background * Mr Boykin is a 71 y/o M with a PMH of T2DM who presents s/p surgery for colon cancer. * Patient's BSGs yesterday were [phone] mg/dL. Fasting today is 168 mg/dL. * Patient received 11 units of insulin yesterday (5 units of basal and 6 units of bolus). * Patient is going into the third full day of NPO status so expect glycogen levels to see be depleted. * Continue current regimen as all BSGs less than 180 mg/dL. PLAN FOR INPATIENT GLYCEMIC CONTROL: * Hold outpatient oral diabetes medications * Basal insulin * Lantus 20 units BID * Bolus insulin * NovoLog per scale ACHS or Q6hrs while NPO and overnight tonight at 0000 and 0400 * Goal Range: Low 110 mg/dL - High 140 mg/dL * Correction Factor: 25 mg/dL/unit * Nutritional / Prandial insulin per carb ratio of 1 unit per 6 grams CHO consumed * 15 units of regular insulin inside TPN (providing 118 grams CHO/24 hours) PLAN FOR DISCHARGE: * A1c 8.7% - insulin requirements during hospital stay much less than outpatient needs. Will continue to follow to determine if continuation of outpatient regimen is appropriate.
[2021-11-10] MEDS: CENTRAL TPN IV SCH ×2 (16:49→21:58)
[2021-11-10] MEDS: AMINO ACID 8% IV SCH ×2 (16:49→21:58)
[2021-11-10] MEDS: [UNRECOGNIZED DRUG - OTHER] IV SCH ×2 (16:49→21:58)
--- NOTE | 2021-11-10 17:39 | Hospitalist Progress Note ---
Date of Service November 10, 2021 Assessment & Plan (1) Colon cancer: Plan: Colon Cancer S/P Laparoscopic Assisted Colon Resection, Umbilical Hernia Repair performed by Dr. Arnol MD on Distended air-filled loops of large and small bowel are suggestive of postoperative ileus. Post op ileus NG tube was discontinued on 10/29 -CT abd/P done on 11/03/21 showed possible post op incision site hematoma, no evidence of dehiscence poor oral intake Got a PICC line and started on TPN Continue TPN until oral intake improves Appreciate surgery input Repeat KUB showed mildly dilated loops of small bowel are similar to previous suggestive of postoperative ileus Ileus slowly Improving Monitor volume status Paroxysmal Atrial Fibrillation Cardiology evaluated Not a candidate for anticoagulation at this time in view of recent surgery On metoprolol DM type 2 Most recent hemoglobin A1c 8.7 Continue to hold PO diabetic Continue Lantus and insulin sliding scale Glycemic pharm on board for glycemic management especially while NPO SHERRI on CKD stage III Cr 1.9>1.8> 1.2 Avoid nephrotoxic agents as able Monitor renal function Hypomagnesemia Replace electrolytes as needed Anemia Hb stable in 8s Monitor DVT Px: heparin SQ CODE STATUS full code Admission and Anticipated Discharge Date Admission Date: October 26, 2021 Subjective Patient is seen and examined at bedside States having loose BMs today No other complaints Denies any chest pain, shortness of breath, dizziness, nausea Review of Systems Review of Systems: All systems reviewed & are unremarkable except as noted in Subjective Physical Exam Physical Exam: Physical Exam: Vitals signs as noted above General Appearance:Obese, no apparent distress Head: normocephalic, Atraumatic Eyes: normal inspection, EOMI Neck: supple, Trachea midline Respiratory/Chest: Normal breath sounds, CTA, No accessory muscle use Cardiovascular: S1, S2, No murmur Abdomen/GI:Soft, Non tender, +Surgical site in dressing, distended, Bowel sounds present Extremities/Musculoskeletal:normal inspection, B/L LE edema Neurologic/Psych:AAOX3, grossly no focal neurological deficits Skin: normal color, warm Results & Data Results & Data ([facility]) Vital Signs (Past 12 Hours) Vital Signs Temp Pulse Pulse Resp BP Pulse Ox 11/10/21 16:30 36.9 C 74 15 133/78 97 11/10/21 11:53 37.1 C 83 16 111/65 92 11/10/21 08:00 76 Laboratory Results Short CBC 11/10/21 Range/Units 07:11 WBC 8.93 (4.8-10.8) K/uL Hgb 8.2 L (14.0-18.0) g/dL Hct 26.9 L (42-52) % Plt Count 243 (130-400) K/uL BMP 11/10/21 07:11 Sodium 138 Potassium 4.7 Chloride 105 Carbon Dioxide 26 BUN 34 H Creatinine 1.27 D Glucose 154 H Calcium 7.9 L
[2021-11-10] MEDS ORDERED: Nursing to Pharmacy Communication SCH (22:15)
[2021-11-11] MEDS: INSULIN ASPART PER UNIT SC SCH ×7 (01:45→23:55)
[2021-11-11 06:07] LABS: Hematocrit (blood only) 25.2 % (42-52); Hemoglobin 7.8 g/dL (14.0-18.0)
[2021-11-11 06:42] LABS: BUN Creatinine Ratio 27.3 (10-20); Calcium 7.9 mg/dl (8.5-10.1); Creatinine Clr Calc Pharmacy 73.7 ml/min; Est GFR (African American) 77.3 ml/min; Est GFR (Non-African American) 66.7 ml/min; Potassium 4.6 mmol/L (3.5-5.1)
[2021-11-11] MEDS: METOPROLOL TARTRATE 25 MG TAB PO SCH ×2 (08:00→21:02)
[2021-11-11] MEDS: INSULIN GLARGINE SOLOSTAR 100 UNITS/ML 3 ML PEN SC SCH ×2 (08:02→21:02)
--- NOTE | 2021-11-11 08:44 | Surgery Progress Note ---
Date of Service November 11, 2021 Assessment & Plan (1) Colon cancer: Plan: POD#16 At this time. The hyper L after present bag infusions Main issue now is to monitor his fluid intake and hopefully can be diuresed POD#15 This morning took a few jamey out of the incision and was able to probe the incision in both direction with a Q-tip the fascia is intact The patient continues to move his bowels and appears to be tolerating his diet somewhat I suspected patient may have a partial small bowel obstruction that may be slowly resolving Lab this morning is pending We will continue with hyperalimentation until his oral intake is sufficient [facility] POD#14 We will await the lab from this morning KUB yesterday although appeared improved my reading radiologist felt that still had an element of an ileus We will stop the heparin but he is only getting it subcu 5000 daily At this point we will continue with hyperalimentation hopefully his oral intake will be sufficient that we can stop it in a day or so pod#13 Lab is pending this morning At this time we will continue with hyperalimentation since oral intake has never been reestablished and normal We will obtain a KUB of the abdomen to follow-up on what was a possible ileus versus obstruction last image approximately 48 hours or so ago Discussed in detail with the patient at this point will we will continue to support him with hyperalimentation and hopefully we can get him out of the hospital soon as possible POD#12 At this time appears the patient may be turning the corner as far as resuming his GI function although we have been here before where he starts having some nausea therefore at this time we will continue with hyperal he has been out of bed yesterday we will continue to increase his activity At this time discussed the fluid status with the medical service was specially with retention pedal edema they will address the issue regarding diuresing on electrolyte replacement I suspect the patient will be here another 3 or 4 days to fully recovers we will continue hyper L at this time until we will certain that his GI function is fairly back to normal POD#11 Patient is 11 days postop laparoscopic assisted right colon resection for an adenocarcinoma path noted discussed with patient before He has had a protracted postoperative period but appeared to be an ileus versus a small bowel obstruction and every time we tried to feed him off and on when he felt better he would vomit At this time the patient would like more solid food and will advance it but I am concerned that this will not last long and his nutritional status and oral intake has been marginal since surgery therefore we will insert a PICC line anticipation that he may need some hyperalimentation for I feel that it may take a few more days until his bowel function would return to normal and his oral intake would be sufficient We are treating this is a postoperative ileus but I cannot definitely exclude that he may have an element of bowel obstruction likely incomplete All question answered Labs this morning PRP is pending PatientPostop day #10 right colon resection Surgical pathology showed adenocarcinoma Postoperative ileus yesterday was therefore made n.p.o.: -Continue IV fluid until certain his oral intake will be adequate -Awaiting a.m. labs this morning -Recheck KUB this morning which is currently pending -Patient has had return of bowel function may consider initiating sips of clear liquids if his KUB is acceptable Subcu heparin is in place for DVT prevention as above. stating he had bms and the nausea has completely resolved. no pain. +bs's. desperately wants something to drink. kub still showing ileus pattern but sometimes xrays lag...clinically doing great. will allow him to try some clears today. Admission and Anticipated Discharge Date Admission Date: October 26, 2021 Subjective States he had a fairly good day yesterday was able to tolerate a diet fairly well without any nausea he continues to have bowel movements he has not taken anything for pain Physical Exam Physical Exam: Sitting up in a chair comfortable no distress The abdomen is soft the dressing that I put on yesterday still intact with minimal bloody drainage from the incision +2 to +3 pedal edema Labs noted Weight approximately 8 kg over since admission Results & Data ([facility]) Vital Signs (Past 12 Hours) Vital Signs Temp Pulse Resp BP Pulse Ox 11/11/21 06:49 36.7 C 75 20 113/60 94 11/11/21 03:40 36.6 C 72 17 121/65 96 11/10/21 23:23 36.7 C 70 17 109/63 97 PG Care Time/CCT Total # of Minutes Spent Total Time Spent with Patient: Total time spent is greater than 50% in coordination of care (as documented) at patient's floor/unit and/or counseling patient: Coding Level of Care Code None Diagnoses Colon cancer C18.9
--- NOTE | 2021-11-11 14:17 | Pharmacy Report ---
Pharmacy Glycemic Short Note 2 - Date of Service November 11, 2021 - Glycemic Short BSG Results (Last 24 hours): 11/10/21 11/10/21 11/10/21 16:01 20:20 23:35 Glucose POC Glucose 122 H 213 H 176 H 11/11/21 11/11/21 11/11/21 01:40 04:45 05:48 Glucose 137 H POC Glucose 170 H 158 H 11/11/21 11/11/21 07:30 11:17 Glucose POC Glucose 160 H 147 H OUTPATIENT ANTIDIABETIC REGIMEN: * Lantus 60 units qAM + 36 units qPM * Alogliptin 12.5 mg PO daily * metformin 1000 mg BIDM * Jardiance 10 mg daily * HbA1c: 8.7% (10/27/21) ASSESSMENT: 11/11/21 * Pt received total of 85 units of insulin yesterday; 40 units basal + 45 units bolus. * Fasting BSG today was 137 mg/dl. Continued basal insulin the same. * Pre-dinner BSG trended down to 122 mg/dl yesterday. Also TPN will discontinue today at 4 pm after current bag is done. So, Novolog parameters are loosened with dinner today. 11/10/21 * BSGs yesterday were [phone] mg/dL. Fasting today is 172 mg/dL. * Patient received 109 units of insulin yesterday (30 units of basal and 79 units of bolus). * Since patient was having hypoglycemia yesterday, will return to basal rate of 40 units. * Loosen Novolog as BSGs trend down. Decrease insulin in TPN. 11/08/21 * Blood sugars elevated most of yesterday in the 200s with increase in dextrose in TPN and some PO intake * Tighten CF/CR, increase insulin in TPN, and increase basal at this time * continue overnight checks tonight 11/07/21 * Patient's BSGs yesterday were [phone] mg/dL and fasting today is 222 mg/dL. * Patient received 62 units of insulin yesterday (40 units of basal plus 22 units of bolus). Also receiving 10 units IV in TPN. * Established when patient was NPO that true basal rate is ~ 30 units/day. Will increase to 40 units daily while eating + TPN. * Increase insulin in TPN to CR of 7 (20 units starting at 1600 today). * Continue tight Novolog to provide extra coverage. Add overnight checks for 24 hour coverage. 11/05/21: * Diet advanced to clears today, but PO intake still minimal * BSGs reasonable so far today, 149 and 157 mg/dL, continue current Novolog parameters * Will scale Lantus to likely provide reduced basal dose today 11/04/21: * Patient developed nausea/vomiting this morning and has been made NPO since that time * Despite elevated fasting BSG of 208 mg/dL, will decrease Lantus today * No change to Novolog parameters today * Plan is to advance diet as tolerated once nausea and vomiting has resolved and bowel function has improved 11/03/21: * Patient received a total of 73 units yesterday (35 units of basal + 38 units bolus) * Fasting BSG of 207 mg/dL remains elevated despite recent increases in Lantus doses, however doses are significantly less than home usage. Continue to titrate as needed. * Novolog parameters appear to be working well. No change today. 11/01/21: * Patient received a total of 46 units yesterday with poor glycemic control * Fasting BSG of 197 mg/dL. The past two days patient has received no basal insulin at bedtime due to BSG at goal. Will remove zero dose from scale so that he receives a minimum of 5 units HS. * Tighten correction factor. Background * Mr Boykin is a 71 y/o M with a PMH of T2DM who presents s/p surgery for colon cancer. * Patient's BSGs yesterday were [phone] mg/dL. Fasting today is 168 mg/dL. * Patient received 11 units of insulin yesterday (5 units of basal and 6 units of bolus). * Patient is going into the third full day of NPO status so expect glycogen levels to see be depleted. * Continue current regimen as all BSGs less than 180 mg/dL. PLAN FOR INPATIENT GLYCEMIC CONTROL: * Hold outpatient oral diabetes medications * Basal insulin * Lantus 20 units SQ BID * Bolus insulin * NovoLog per scale ACHS or Q6hrs while NPO and overnight tonight at 0000 and 0400 * Goal Range: Low 110 mg/dL - High 140 mg/dL * Correction Factor: 25 mg/dL/unit * Nutritional / Prandial insulin per carb ratio of 1 unit per 7 grams CHO consumed PLAN FOR DISCHARGE: * A1c 8.7% - insulin requirements during hospital stay much less than outpatient needs. Will continue to follow to determine if continuation of outpatient regimen is appropriate.
--- NOTE | 2021-11-11 15:39 | Hospitalist Progress Note ---
Date of Service November 11, 2021 Assessment & Plan (1) Colon cancer: Plan: Colon Cancer S/P Laparoscopic Assisted Colon Resection, Umbilical Hernia Repair performed by Dr. Arnol MD on Distended air-filled loops of large and small bowel are suggestive of postoperative ileus. Post op ileus NG tube was discontinued on 10/29 -CT abd/P done on 11/03/21 showed possible post op incision site hematoma, no evidence of dehiscence poor oral intake on TPN until oral intake improves Appreciate surgery input Repeat KUB showed mildly dilated loops of small bowel are similar to previous suggestive of postoperative ileus Ileus slowly Improving Monitor volume status while having diarrhea Stool for C diff negative Paroxysmal Atrial Fibrillation Cardiology evaluated Not a candidate for anticoagulation at this time in view of recent surgery On metoprolol DM type 2 Most recent hemoglobin A1c 8.7 Continue to hold PO diabetic Continue Lantus and insulin sliding scale Glycemic pharm on board for glycemic management especially while NPO SHERRI on CKD stage III Cr 1.9>1.8> 1.2>1.1 Avoid nephrotoxic agents as able Monitor renal function Hypomagnesemia Replace electrolytes as needed Anemia Hb stable in 8s Monitor DVT Px: heparin SQ CODE STATUS full code Admission and Anticipated Discharge Date Admission Date: October 26, 2021 Subjective Patient is seen and examined at bedside Denies any pain at surgical site Continues to have diarrhea as per patient No new complaints Denies any chest pain, shortness of breath, dizziness, nausea Review of Systems Review of Systems: All systems reviewed & are unremarkable except as noted in Subjective Physical Exam Physical Exam: Physical Exam: Vitals signs as noted above General Appearance:Obese, no apparent distress Head: normocephalic, Atraumatic Eyes: normal inspection, EOMI Neck: supple, Trachea midline Respiratory/Chest: Normal breath sounds, CTA, No accessory muscle use Cardiovascular: S1, S2, No murmur Abdomen/GI:Soft, Non tender, +Surgical site in dressing, distended, Bowel sounds present Extremities/Musculoskeletal:normal inspection, B/L LE edema Neurologic/Psych:AAOX3, grossly no focal neurological deficits Skin: normal color, warm Results & Data Results & Data ([facility]) Vital Signs (Past 12 Hours) Vital Signs Temp Pulse Pulse Resp BP Pulse Ox 11/11/21 11:33 36.8 C 63 18 106/63 98 11/11/21 06:49 36.7 C 75 20 113/60 94 11/11/21 03:40 36.6 C 72 17 121/65 96 Laboratory Results Short CBC 11/11/21 Range/Units 05:48 Hgb 7.8 L (14.0-18.0) g/dL Hct 25.2 L (42-52) % BMP 11/11/21 05:48 Sodium 137 Potassium 4.6 Chloride 104 Carbon Dioxide 28 BUN 30 H Creatinine 1.10 Glucose 137 H Calcium 7.9 L
[2021-11-11] MEDS: ADVANCED PROBIOTIC 1250 MG CAPSULE PO SCH (16:23)
[2021-11-12] MEDS: INSULIN ASPART PER UNIT SC SCH ×5 (04:22→21:04)
[2021-11-12 07:53] LABS: Hemoglobin 8.6 g/dL (14.0-18.0)
[2021-11-12] MEDS: INSULIN GLARGINE SOLOSTAR 100 UNITS/ML 3 ML PEN SC SCH ×2 (08:10→21:04)
[2021-11-12] MEDS: METOPROLOL TARTRATE 25 MG TAB PO SCH ×2 (08:11→21:03)
[2021-11-12] MEDS: ADVANCED PROBIOTIC 1250 MG CAPSULE PO SCH (08:11)
[2021-11-12 08:27] LABS: BUN Creatinine Ratio 21.7 (10-20); Calcium 7.8 mg/dl (8.5-10.1); Est GFR (African American) 73.3 ml/min; Est GFR (Non-African American) 63.2 ml/min; Potassium 4.6 mmol/L (3.5-5.1)
--- NOTE | 2021-11-12 11:30 | Surgery Progress Note ---
Date of Service November 12, 2021 Assessment & Plan (1) Colon cancer: Plan: POD#17 At this time continues to make good progress tolerating a diet and his GI function which is multiple bowel movements he states he has a day will improve with time We will let the medical service handle the fluid status at this time and perhaps have cardiology come back and see the patient POD#16 At this time. The hyper L after present bag infusions Main issue now is to monitor his fluid intake and hopefully can be diuresed POD#15 This morning took a few jamey out of the incision and was able to probe the incision in both direction with a Q-tip the fascia is intact The patient continues to move his bowels and appears to be tolerating his diet somewhat I suspected patient may have a partial small bowel obstruction that may be slowly resolving Lab this morning is pending We will continue with hyperalimentation until his oral intake is sufficient [facility] covering this weekend POD#14 We will await the lab from this morning KUB yesterday although appeared improved my reading radiologist felt that still had an element of an ileus We will stop the heparin but he is only getting it subcu 5000 daily At this point we will continue with hyperalimentation hopefully his oral intake will be sufficient that we can stop it in a day or so pod#13 Lab is pending this morning At this time we will continue with hyperalimentation since oral intake has never been reestablished and normal We will obtain a KUB of the abdomen to follow-up on what was a possible ileus versus obstruction last image approximately 48 hours or so ago Discussed in detail with the patient at this point will we will continue to support him with hyperalimentation and hopefully we can get him out of the hospital soon as possible POD#12 At this time appears the patient may be turning the corner as far as resuming his GI function although we have been here before where he starts having some nausea therefore at this time we will continue with hyperal he has been out of bed yesterday we will continue to increase his activity At this time discussed the fluid status with the medical service was specially with retention pedal edema they will address the issue regarding diuresing on electrolyte replacement I suspect the patient will be here another 3 or 4 days to fully recovers we will continue hyper L at this time until we will certain that his GI function is fairly back to normal POD#11 Patient is 11 days postop laparoscopic assisted right colon resection for an adenocarcinoma path noted discussed with patient before He has had a protracted postoperative period but appeared to be an ileus versus a small bowel obstruction and every time we tried to feed him off and on when he felt better he would vomit At this time the patient would like more solid food and will advance it but I am concerned that this will not last long and his nutritional status and oral intake has been marginal since surgery therefore we will insert a PICC line anticipation that he may need some hyperalimentation for I feel that it may take a few more days until his bowel function would return to normal and his oral intake would be sufficient We are treating this is a postoperative ileus but I cannot definitely exclude that he may have an element of bowel obstruction likely incomplete All question answered Labs this morning PRP is pending PatientPostop day #10 right colon resection Surgical pathology showed adenocarcinoma Postoperative ileus yesterday was therefore made n.p.o.: -Continue IV fluid until certain his oral intake will be adequate -Awaiting a.m. labs this morning -Recheck KUB this morning which is currently pending -Patient has had return of bowel function may consider initiating sips of clear liquids if his KUB is acceptable Subcu heparin is in place for DVT prevention as above. stating he had bms and the nausea has completely resolved. no pain. +bs's. desperately wants something to drink. kub still showing ileus pattern but sometimes xrays lag...clinically doing great. will allow him to try some clears today. (2) Post-operative state: Admission and Anticipated Discharge Date Admission Date: October 26, 2021 Subjective Overall he had a good day yesterday still states he has multiple bowel movements no nausea tolerated a diet Physical Exam Physical Exam: Sitting in a chair on the side of the bed without any issues The abdomen is bit softer the incision minimal drainage from the old blood that accumulated from the heparin injection Still has about a +3 pedal edema bilaterally Results & Data ([facility]) Vital Signs (Past 12 Hours) Vital Signs Temp Pulse Pulse Pulse Resp BP BP 11/12/21 11:10 36.8 C 68 16 118/69 11/12/21 09:17 73 11/12/21 06:41 36.7 C 72 18 126/70 11/12/21 04:06 36.7 C 77 18 114/62 Pulse Ox 11/12/21 11:10 98 11/12/21 09:17 11/12/21 06:41 97 11/12/21 04:06 97 Laboratory Results Laboratory noted PG Care Time/CCT Total # of Minutes Spent Total Time Spent with Patient: Total time spent is greater than 50% in coordination of care (as documented) at patient's floor/unit and/or counseling patient: Coding Level of Care Code None Diagnoses Colon cancer C18.9 Post-operative state Z98.890
--- NOTE | 2021-11-12 15:06 | Pharmacy Report ---
Pharmacy Glycemic Short Note 2 - Date of Service November 12, 2021 - Glycemic Short BSG Results (Last 24 hours): 11/11/21 11/11/21 11/11/21 16:39 20:45 23:48 Glucose POC Glucose 115 H 130 H 177 H 11/12/21 11/12/21 11/12/21 04:05 07:07 07:21 Glucose 150 H POC Glucose 150 H 162 H 11/12/21 11:15 Glucose POC Glucose 154 H OUTPATIENT ANTIDIABETIC REGIMEN: * Lantus 60 units qAM + 36 units qPM * Alogliptin 12.5 mg PO daily * metformin 1000 mg BIDM * Jardiance 10 mg daily * HbA1c: 8.7% (10/27/21) ASSESSMENT: 11/12/21 * Pt received total 83 units of insulin yesterday; 40 units basal + 43 units bolus. * BSGs were [phone] yesterday. Fasting BSG was 162 mg/dl today. * Basal Lantus BID doses continued the same. Novolog CF/CR parameters tightened slightly. 11/11/21 * Pt received total of 85 units of insulin yesterday; 40 units basal + 45 units bolus. * Fasting BSG today was 137 mg/dl. Continued basal insulin the same. * Pre-dinner BSG trended down to 122 mg/dl yesterday. Also TPN will discontinue today at 4 pm after current bag is done. So, Novolog parameters are loosened with dinner today. 11/10/21 * BSGs yesterday were [phone] mg/dL. Fasting today is 172 mg/dL. * Patient received 109 units of insulin yesterday (30 units of basal and 79 units of bolus). * Since patient was having hypoglycemia yesterday, will return to basal rate of 40 units. * Loosen Novolog as BSGs trend down. Decrease insulin in TPN. 11/08/21 * Blood sugars elevated most of yesterday in the 200s with increase in dextrose in TPN and some PO intake * Tighten CF/CR, increase insulin in TPN, and increase basal at this time * continue overnight checks tonight 11/07/21 * Patient's BSGs yesterday were [phone] mg/dL and fasting today is 222 mg/dL. * Patient received 62 units of insulin yesterday (40 units of basal plus 22 units of bolus). Also receiving 10 units IV in TPN. * Established when patient was NPO that true basal rate is ~ 30 units/day. Will increase to 40 units daily while eating + TPN. * Increase insulin in TPN to CR of 7 (20 units starting at 1600 today). * Continue tight Novolog to provide extra coverage. Add overnight checks for 24 hour coverage. 11/05/21: * Diet advanced to clears today, but PO intake still minimal * BSGs reasonable so far today, 149 and 157 mg/dL, continue current Novolog parameters * Will scale Lantus to likely provide reduced basal dose today 11/04/21: * Patient developed nausea/vomiting this morning and has been made NPO since that time * Despite elevated fasting BSG of 208 mg/dL, will decrease Lantus today * No change to Novolog parameters today * Plan is to advance diet as tolerated once nausea and vomiting has resolved and bowel function has improved 11/03/21: * Patient received a total of 73 units yesterday (35 units of basal + 38 units bolus) * Fasting BSG of 207 mg/dL remains elevated despite recent increases in Lantus doses, however doses are significantly less than home usage. Continue to titrate as needed. * Novolog parameters appear to be working well. No change today. 11/01/21: * Patient received a total of 46 units yesterday with poor glycemic control * Fasting BSG of 197 mg/dL. The past two days patient has received no basal insulin at bedtime due to BSG at goal. Will remove zero dose from scale so that he receives a minimum of 5 units HS. * Tighten correction factor. Background * Mr Boykin is a 71 y/o M with a PMH of T2DM who presents s/p surgery for colon cancer. * Patient's BSGs yesterday were [phone] mg/dL. Fasting today is 168 mg/dL. * Patient received 11 units of insulin yesterday (5 units of basal and 6 units of bolus). * Patient is going into the third full day of NPO status so expect glycogen levels to see be depleted. * Continue current regimen as all BSGs less than 180 mg/dL. PLAN FOR INPATIENT GLYCEMIC CONTROL: * Hold outpatient oral diabetes medications * Basal insulin * Lantus 20 units SQ BID * Bolus insulin * NovoLog per scale ACHS or Q6hrs while NPO and overnight tonight at 0000 and 0400 * Goal Range: Low 110 mg/dL - High 140 mg/dL * Correction Factor: 20 mg/dL/unit * Nutritional / Prandial insulin per carb ratio of 1 unit per 6 grams CHO consumed PLAN FOR DISCHARGE: * A1c 8.7% - insulin requirements during hospital stay much less than outpatient needs. Will continue to follow to determine if continuation of outpatient regimen is appropriate.
--- NOTE | 2021-11-12 19:49 | Hospitalist Progress Note ---
Date of Service November 12, 2021 Assessment & Plan (1) Colon cancer: Plan: Colon Cancer S/P Laparoscopic Assisted Colon Resection, Umbilical Hernia Repair performed by Dr. Arnol MD on Distended air-filled loops of large and small bowel are suggestive of postoperative ileus. Post op ileus NG tube was discontinued on 10/29 -CT abd/P done on 11/03/21 showed possible post op incision site hematoma, no evidence of dehiscence poor oral intake on TPN until oral intake improves Appreciate surgery input Repeat KUB showed mildly dilated loops of small bowel are similar to previous suggestive of postoperative ileus Ileus Improving Monitor volume status while having diarrhea Stool for C diff negative Tolerating diet Diarrhea slowly improving Consider Lasix tomorrow to help with volume status Paroxysmal Atrial Fibrillation Cardiology evaluated Not a candidate for anticoagulation at this time in view of recent surgery On metoprolol DM type 2 Most recent hemoglobin A1c 8.7 Continue to hold PO diabetic Continue Lantus and insulin sliding scale Glycemic pharm on board for glycemic management especially while NPO SHERRI on CKD stage III Cr 1.9>1.8> 1.2>1.1 Avoid nephrotoxic agents as able Monitor renal function Hypomagnesemia Replace electrolytes as needed Anemia Hb stable in 8s Monitor DVT Px: heparin SQ CODE STATUS full code Admission and Anticipated Discharge Date Admission Date: October 26, 2021 Subjective Patient is seen and examined at bedside Diarrhea slowly improving Tolerating diet No new complaints Denies any chest pain, shortness of breath, dizziness, nausea, abd pain Review of Systems Review of Systems: All systems reviewed & are unremarkable except as noted in Subjective Physical Exam Physical Exam: Physical Exam: Vitals signs as noted above General Appearance:Obese, no apparent distress Head: normocephalic, Atraumatic Eyes: normal inspection, EOMI Neck: supple, Trachea midline Respiratory/Chest: Normal breath sounds, CTA, No accessory muscle use Cardiovascular: S1, S2, No murmur Abdomen/GI:Soft, Non tender, +Surgical site in dressing, distended, Bowel sounds present Extremities/Musculoskeletal:normal inspection, B/L LE edema Neurologic/Psych:AAOX3, grossly no focal neurological deficits Skin: normal color, warm Results & Data Results & Data ([facility]) Vital Signs (Past 12 Hours) Vital Signs Temp Pulse Pulse Resp BP Pulse Ox 11/12/21 19:41 36.7 C 74 16 105/55 L 95 02/27/22 15:42 70 11/12/21 15:13 36.7 C 76 18 105/50 L 96 11/12/21 11:10 36.8 C 68 16 118/69 98 11/12/21 09:17 73 Laboratory Results Short CBC 11/12/21 Range/Units 07:21 Hgb 8.6 L (14.0-18.0) g/dL Hct 28.0 L (42-52) % BMP 11/12/21 07:21 Sodium 135 L Potassium 4.6 Chloride 103 Carbon Dioxide 26 BUN 25 H Creatinine 1.15 Glucose 150 H Calcium 7.8 L
--- NOTE | 2021-11-13 07:00 | Surgery Progress Note ---
Date of Service November 13, 2021 Assessment & Plan (1) Colon cancer: Plan: POD#18 Patient almost ready to go home we will plan for tomorrow if okay with the medical service [facility] for a week or so We will remove the rest of remaining jamey in the incision tomorrow POD#17 At this time continues to make good progress tolerating a diet and his GI function which is multiple bowel movements he states he has a day will improve with time We will let the medical service handle the fluid status at this time and perhaps have cardiology come back and see the patient POD#16 At this time. The hyper L after present bag infusions Main issue now is to monitor his fluid intake and hopefully can be diuresed POD#15 This morning took a few jamey out of the incision and was able to probe the incision in both direction with a Q-tip the fascia is intact The patient continues to move his bowels and appears to be tolerating his diet somewhat I suspected patient may have a partial small bowel obstruction that may be slowly resolving Lab this morning is pending We will continue with hyperalimentation until his oral intake is sufficient [facility] covering this weekend POD#14 We will await the lab from this morning KUB yesterday although appeared improved my reading radiologist felt that still had an element of an ileus We will stop the heparin but he is only getting it subcu 5000 daily At this point we will continue with hyperalimentation hopefully his oral intake will be sufficient that we can stop it in a day or so pod#13 Lab is pending this morning At this time we will continue with hyperalimentation since oral intake has never been reestablished and normal We will obtain a KUB of the abdomen to follow-up on what was a possible ileus versus obstruction last image approximately 48 hours or so ago Discussed in detail with the patient at this point will we will continue to support him with hyperalimentation and hopefully we can get him out of the hospital soon as possible POD#12 At this time appears the patient may be turning the corner as far as resuming his GI function although we have been here before where he starts having some nausea therefore at this time we will continue with hyperal he has been out of bed yesterday we will continue to increase his activity At this time discussed the fluid status with the medical service was specially with retention pedal edema they will address the issue regarding diuresing on electrolyte replacement I suspect the patient will be here another 3 or 4 days to fully recovers we will continue hyper L at this time until we will certain that his GI function is fairly back to normal POD#11 Patient is 11 days postop laparoscopic assisted right colon resection for an adenocarcinoma path noted discussed with patient before He has had a protracted postoperative period but appeared to be an ileus versus a small bowel obstruction and every time we tried to feed him off and on when he felt better he would vomit At this time the patient would like more solid food and will advance it but I am concerned that this will not last long and his nutritional status and oral intake has been marginal since surgery therefore we will insert a PICC line anticipation that he may need some hyperalimentation for I feel that it may take a few more days until his bowel function would return to normal and his oral intake would be sufficient We are treating this is a postoperative ileus but I cannot definitely exclude that he may have an element of bowel obstruction likely incomplete All question answered Labs this morning PRP is pending PatientPostop day #10 right colon resection Surgical pathology showed adenocarcinoma Postoperative ileus yesterday was therefore made n.p.o.: -Continue IV fluid until certain his oral intake will be adequate -Awaiting a.m. labs this morning -Recheck KUB this morning which is currently pending -Patient has had return of bowel function may consider initiating sips of clear liquids if his KUB is acceptable Subcu heparin is in place for DVT prevention as above. stating he had bms and the nausea has completely resolved. no pain. +bs's. desperately wants something to drink. kub still showing ileus pattern but sometimes xrays lag...clinically doing great. will allow him to try some clears today. (2) Post-operative state: Admission and Anticipated Discharge Date Admission Date: October 26, 2021 Subjective Had a good day yesterday tolerating a good diet his bowels continue to move his been up and around by himself denies any nausea Physical Exam Physical Exam: Patient is up in the side chair The abdomen is soft incision minimal drainage which is some residual dark blood from the abdominal wall ecchymosis Still has moderate bilateral pedal edema but appears to be improving Results & Data ([facility]) Vital Signs (Past 12 Hours) Vital Signs Temp Pulse Pulse Resp BP Pulse Ox 11/13/21 04:07 36.7 C 74 18 126/66 95 11/12/21 23:00 37.1 C 72 17 103/56 L 94 11/12/21 19:41 36.7 C 74 16 105/55 L 95 PG Care Time/CCT Total # of Minutes Spent Total Time Spent with Patient: Total time spent is greater than 50% in coordination of care (as documented) at patient's floor/unit and/or counseling patient: Coding Level of Care Code None Diagnoses Colon cancer C18.9 Post-operative state Z98.890
[2021-11-13] MEDS: METOPROLOL TARTRATE 25 MG TAB PO SCH ×2 (08:08→20:07)
[2021-11-13] MEDS: ADVANCED PROBIOTIC 1250 MG CAPSULE PO SCH (08:08)
[2021-11-13] MEDS: INSULIN GLARGINE SOLOSTAR 100 UNITS/ML 3 ML PEN SC SCH ×2 (08:08→20:06)
[2021-11-13] MEDS: INSULIN ASPART PER UNIT SC SCH ×4 (08:10→20:09)
[2021-11-13] MEDS ORDERED: FUROSEMIDE INJ 20 MG/2 ML VIAL IV ONE (09:42)
--- NOTE | 2021-11-13 17:24 | Hospitalist Progress Note ---
Date of Service November 13, 2021 Assessment & Plan (1) Colon cancer: Plan: Colon Cancer S/P Laparoscopic Assisted Colon Resection, Umbilical Hernia Repair performed by Dr. Arnol MD on Distended air-filled loops of large and small bowel are suggestive of postoperative ileus. Post op ileus NG tube was discontinued on 10/29 -CT abd/P done on 11/03/21 showed possible post op incision site hematoma, no evidence of dehiscence poor oral intake on TPN until oral intake improves Appreciate surgery input Repeat KUB showed mildly dilated loops of small bowel are similar to previous suggestive of postoperative ileus Ileus Improving Monitor volume status while having diarrhea Stool for C diff negative Tolerating diet Semiformed BMs today We will give a dose of Lasix today Surgery planning to remove remaining jamey in the incision tomorrow Paroxysmal Atrial Fibrillation Cardiology evaluated Not a candidate for anticoagulation at this time in view of recent surgery On metoprolol DM type 2 Most recent hemoglobin A1c 8.7 Continue to hold PO diabetic Continue Lantus and insulin sliding scale Glycemic pharm on board for glycemic management especially while NPO SHERRI on CKD stage III Cr 1.9>1.8> 1.2>1.1 Avoid nephrotoxic agents as able Monitor renal function Hypomagnesemia Replace electrolytes as needed Anemia Hb stable in 8s Monitor DVT Px: heparin SQ CODE STATUS full code Admission and Anticipated Discharge Date Admission Date: October 26, 2021 Subjective Patient is seen and examined at bedside States feeling well No new complaints States having semiformed stools Plan for staple removal tomorrow Denies any chest pain, shortness of breath, dizziness, nausea, abd pain Review of Systems Review of Systems: All systems reviewed & are unremarkable except as noted in Subjective Physical Exam Physical Exam: Physical Exam: Vitals signs as noted above General Appearance:Obese, no apparent distress Head: normocephalic, Atraumatic Eyes: normal inspection, EOMI Neck: supple, Trachea midline Respiratory/Chest: Normal breath sounds, CTA, No accessory muscle use Cardiovascular: S1, S2, No murmur Abdomen/GI:Soft, Non tender, +Surgical site in dressing, distended, Bowel sounds present Extremities/Musculoskeletal:normal inspection, B/L LE edema Neurologic/Psych:AAOX3, grossly no focal neurological deficits Skin: normal color, warm Results & Data Results & Data ([facility]) Vital Signs (Past 12 Hours) Vital Signs Temp Pulse Pulse Resp BP Pulse Ox 11/13/21 14:44 78 11/13/21 11:30 36.8 C 70 18 109/66 95 11/13/21 07:30 36.7 C 70 18 119/65 95 11/13/21 07:09 78
[2021-11-14] MEDS: METOPROLOL TARTRATE 25 MG TAB PO SCH ×2 (07:33→21:27)
[2021-11-14] MEDS: ADVANCED PROBIOTIC 1250 MG CAPSULE PO SCH (07:34)
[2021-11-14] MEDS: INSULIN GLARGINE SOLOSTAR 100 UNITS/ML 3 ML PEN SC SCH ×2 (07:36→21:27)
[2021-11-14 07:40] LABS: Calcium 8.1 mg/dl (8.5-10.1); Creatinine Clr Calc Pharmacy 59.5 ml/min; Est GFR (African American) 61.5 ml/min; Potassium 4.2 mmol/L (3.5-5.1)
--- NOTE | 2021-11-14 07:48 | Surgery Progress Note ---
Date of Service November 14, 2021 Assessment & Plan (1) Colon cancer: Plan: POD#19 patient tolerating a diet, no abdominal complaints. no n/v. + bowel function midline jamey removed, some drainage noted. placed 1/4" plain packing in wound, to be changed daily will have patient go out on a course of augmentin for some midline wound erythema will discuss with medical service & case management if okay for discharge from their end may be dispo'd today f/u in clinic with dr. perez within 1 week Admission and Anticipated Discharge Date Admission Date: October 26, 2021 Supervising Physician Co-Signing Physician Notes as per Lizbet JOHNSON if ok with medical service d/c today Subjective Patient feeling well. Tolerating a diet without complaints. Pain controlled. No n/v. Physical Exam Physical Exam: awake/alert Gastrointestinal (Abdomen): Inspection/Auscultation: + abdominal surgical incision (some midline erythema, jamey removed, some bloody drainage) Percussion/Palpation: abdomen nontender Results & Data ([facility]) Vital Signs (Past 12 Hours) Vital Signs Temp Pulse Pulse Resp BP Pulse Ox 11/14/21 03:46 37.0 C 71 18 120/72 93 11/13/21 23:43 64 11/13/21 23:19 36.7 C 66 17 110/56 L 96 PG Care Time/CCT Total # of Minutes Spent Total Time Spent with Patient: Total time spent is greater than 50% in coordination of care (as documented) at patient's floor/unit and/or counseling patient: Coding Level of Care Code None Diagnoses Colon cancer C18.9
[2021-11-14] MEDS ORDERED: FUROSEMIDE 20 MG TAB PO ONE (09:00)
[2021-11-14] MEDS: INSULIN ASPART PER UNIT SC SCH ×4 (09:15→21:27)
--- NOTE | 2021-11-14 16:26 | Hospitalist Progress Note ---
Date of Service November 14, 2021 Assessment & Plan (1) Colon cancer: Plan: Colon Cancer S/P Laparoscopic Assisted Colon Resection, Umbilical Hernia Repair performed by Dr. Arnol MD on Distended air-filled loops of large and small bowel are suggestive of postoperative ileus. Post op ileus NG tube was discontinued on 10/29 -CT abd/P done on 11/03/21 showed possible post op incision site hematoma, no evidence of dehiscence poor oral intake on TPN until oral intake improves Appreciate surgery input Repeat KUB showed mildly dilated loops of small bowel are similar to previous suggestive of postoperative ileus Ileus Improving Monitor volume status while having diarrhea Stool for C diff negative Tolerating diet [place] removed today Needs rehab placement Needs follow-up with surgery upon discharge Paroxysmal Atrial Fibrillation Cardiology evaluated Not a candidate for anticoagulation at this time in view of recent surgery Continue metoprolol DM type 2 Most recent hemoglobin A1c 8.7 Continue to hold PO diabetic Continue Lantus and insulin sliding scale Glycemic pharm on board for glycemic management Will need insulin dose adjusted upon discharge given less requirement while hospitalized SHERRI on CKD stage III Cr 1.9>1.8> 1.2>1.3 Avoid nephrotoxic agents as able Monitor renal function Hypomagnesemia Replace electrolytes as needed Anemia Hb stable in 8s Monitor DVT Px: heparin SQ CODE STATUS full code Disposition Rehab when arranged Admission and Anticipated Discharge Date Admission Date: October 26, 2021 Subjective Patient is seen and examined at bedside Clinically no significant change from yesterday States having an bowel movements Discussed with surgery today Had jamey removed today Denies any chest pain, shortness of breath, dizziness, nausea, abd pain Plan to be discharged to rehab facility if accepted Review of Systems Review of Systems: All systems reviewed & are unremarkable except as noted in Subjective Physical Exam Physical Exam: Physical Exam: Vitals signs as noted above General Appearance:Obese, no apparent distress Head: normocephalic, Atraumatic Eyes: normal inspection, EOMI Neck: supple, Trachea midline Respiratory/Chest: Normal breath sounds, CTA, No accessory muscle use Cardiovascular: S1, S2, No murmur Abdomen/GI:Soft, Non tender, +Surgical site in dressing, distended, Bowel sounds present Extremities/Musculoskeletal:normal inspection, B/L LE edema Neurologic/Psych:AAOX3, grossly no focal neurological deficits Skin: normal color, warm Results & Data Results & Data ([facility]) Vital Signs (Past 12 Hours) Vital Signs Temp Pulse Pulse Resp BP Pulse Ox 11/14/21 16:16 75 11/14/21 15:48 36.8 C 76 19 130/66 96 11/14/21 12:39 74 11/14/21 12:19 36.8 C 69 18 125/72 95 11/14/21 07:46 36.8 C 71 18 124/69 95 Laboratory Results [facility] 11/14/21 06:24 Sodium 136 Potassium 4.2 Chloride 102 Carbon Dioxide 28 BUN 24 H Creatinine 1.33 Glucose 120 H Calcium 8.1 L
--- NOTE | 2021-11-15 08:39 | Surgery Progress Note ---
Date of Service November 15, 2021 Assessment & Plan (1) Colon cancer: Plan: POD#20 patient tolerating a diet, no abdominal complaints. no n/v. + bowel function will place order for daily wound packing to be performed pt started augmentin for some midline wound drainage/erythema pt was denied placement to [facility]. will discuss with case management other options...pt wondering if he could go to [facility]? He is medically stable for discharge f/u with dr. perez in 1 week Admission and Anticipated Discharge Date Admission Date: October 26, 2021 Subjective Patient offers no complaints. Hungry for bfast this AM, says he is used to eating at 7:30 on the 2nd floor. Physical Exam Physical Exam: awake/alert, sitting up in chair Results & Data ([facility]) Vital Signs (Past 12 Hours) Vital Signs Temp Pulse Pulse Resp BP BP Pulse Ox 11/15/21 08:04 37.1 C 70 16 124/68 94 11/14/21 23:15 36.9 C 75 20 111/58 L 92 11/14/21 21:26 73 132/65 93 PG Care Time/CCT Total # of Minutes Spent Total Time Spent with Patient: Total time spent is greater than 50% in coordination of care (as documented) at patient's floor/unit and/or counseling patient: Coding Level of Care Code None Diagnoses Colon cancer C18.9
[2021-11-15] MEDS: ADVANCED PROBIOTIC 1250 MG CAPSULE PO SCH (08:45)
[2021-11-15] MEDS: METOPROLOL TARTRATE 25 MG TAB PO SCH ×2 (08:45→21:07)
[2021-11-15] MEDS: INSULIN GLARGINE SOLOSTAR 100 UNITS/ML 3 ML PEN SC SCH ×2 (08:46→21:08)
[2021-11-15] MEDS: AMOXICILLIN/CLAVULANATE 875 MG TAB PO SCH ×2 (08:46→18:24)
[2021-11-15] MEDS: INSULIN ASPART PER UNIT SC SCH ×4 (08:50→21:07)
[2021-11-15 10:18] LABS: Hematocrit (blood only) 27.1 % (42-52); Hemoglobin 8.5 g/dL (14.0-18.0)
[2021-11-15 10:56] LABS: Calcium 8.9 mg/dl (8.5-10.1); Creatinine Clr Calc Pharmacy 52.8 ml/min; Est GFR (African American) 53.1 ml/min; Est GFR (Non-African American) 45.9 ml/min; Potassium 4.1 mmol/L (3.5-5.1)
--- NOTE | 2021-11-15 14:52 | Pharmacy Report ---
Pharmacy Glycemic Sign Off Nt - Date of Service November 15, 2021 - Assessment & Plan ASSESSMENT: * Pharmacy was consulted by Dr Ambrose on 10/28/21 for glycemic control and to write orders per [facility] inpatient glycemic control protocol. * Patient has been receiving between 57 - 83 units of insulin per day during last four days for adequate glycemic control * BSGs ranging [phone] mg/dl yesterday. * Regimen has required only one minor adjustment over the past 72 hrs to achieve this level of control * Do not anticipate further changes in patient status that would quickly deteriorate glycemic control (i.e. patient to be NPO for upcoming procedure, steroids tapering, starting tube feedings, etc). * Please see recommendations for outpatient antidiabetic regimen below. PLAN FOR INPATIENT GLYCEMIC CONTROL: * Continue basal insulin with Lantus 20 units SQ BID * Continue NovoLog per scale ACHS/Q6hrs while NPO * Goal range = 110 - 140 mg/dl * CF = 25 mg/dl/unit * CR = 1 unit for ever 6 g CHO consumed * Pharmacy is signing off of glycemic consult and will no longer be making adjustments to inpatient regimen. Please feel free to re-consult if needed. Thank you. DISCHARGE RECOMMENDATIONS: * A1c 8.7 % on 10/27/21 * Patient's insulin requirements during hospital stay has been much less than outpatient needs. * Recommend decreasing Lantus dose to 20 units SQ BID on discharge * Recommend continue on patient's home anti-diabetic meds as follows: * Alogliptin 12.5 mg PO daily * metformin 1000 mg BIDM * Jardiance 10 mg daily
--- NOTE | 2021-11-15 17:15 | Hospitalist Progress Note ---
Date of Service November 15, 2021 Assessment & Plan (1) Colon cancer: Plan: per Dr. Pineda's notes with addendum: Colon Cancer S/P Laparoscopic Assisted Colon Resection, Umbilical Hernia Repair performed by Dr. Arnol MD on Distended air-filled loops of large and small bowel are suggestive of postoperative ileus. Post op ileus NG tube was discontinued on 10/29 -CT abd/P done on 11/03/21 showed possible post op incision site hematoma, no evidence of dehiscence 11/15/21 Ileus resolved tolerating diet well afebrile on Augmentin for wound drainage no medical contraindication for discharge Paroxysmal Atrial Fibrillation Cardiology evaluated Not a candidate for anticoagulation at this time in view of recent surgery Continue metoprolol DM type 2 Most recent hemoglobin A1c 8.7 Continue to hold PO diabetic Continue Lantus and insulin sliding scale Glycemic pharm on board for glycemic management Will need insulin dose adjusted upon discharge given less requirement while hospitalized--> discharge insulin dose adjusted SHERRI on CKD stage III Cr 1.9>1.8> 1.2>1.3 crea 1.5 encourage oral fluid intake monitor crea closely as outpatient Anemia Hb stable in 8s Monitor DVT Px: heparin SQ CODE STATUS full code Disposition Rehab when arranged Admission and Anticipated Discharge Date Admission Date: October 26, 2021 Subjective ff up for s/p colon resection, etc seen resting in bed, comfortable having lunch in good spirits no chest pain, dyspnea, palpitations, dizziness no abdominal pain, nausea/vomiting no other symptoms Review of Systems Review of Systems: all noted and negative except for above Physical Exam Physical Exam: General- oriented x 2, not in distress, speaks in sentences with no effort or accessory muscle use Eyes- anicteric Neck- no JVD Lungs- clear breath sounds bilaterally, no rales/wheezes Heart- normal rate, regular rhythm; no murmurs Abdomen- normal bowel sounds, nondistended, soft, nontender dressing in place: no bleeding or discharged Extremities- no pretibial edema, no calf tenderness Neuro- alert, oriented x2; no gross focal neurologic deficits Skin- warm & dry Results & Data Results & Data ([facility]) Vital Signs (Past 12 Hours) Vital Signs Temp Pulse Resp BP Pulse Ox 11/15/21 16:39 36.6 C 72 16 129/70 95 11/15/21 08:04 37.1 C 70 16 124/68 94 all noted and reviewed including below
--- NOTE | 2021-11-16 07:57 | Surgery Progress Note ---
Date of Service November 16, 2021 Assessment & Plan (1) Colon cancer: Plan: POD#21 Awaiting possible transfer to [facility] he is receiving physical therapy at this time and appears stronger but I feel he is not ready to go home yet POD#20 patient tolerating a diet, no abdominal complaints. no n/v. + bowel function will place order for daily wound packing to be performed pt started augmentin for some midline wound drainage/erythema pt was denied placement to [facility]. will discuss with case management other options...pt wondering if he could go to [facility]? He is medically stable for discharge f/u with dr. perez in 1 week Admission and Anticipated Discharge Date Admission Date: October 26, 2021 Subjective Patient has no complaints. Tolerated regular diet yesterday his bowels are moving to begin more formed minimal abdominal pain Yesterday [facility] denied his transfer States he is waiting to go to [facility] Physical Exam Physical Exam: Resting comfortably in bed with no abdominal discomfort The abdomen is soft the active most this is both lower quadrants is almost completely resolved the incision minimal cellulitis in a few areas the packing is still intact that would be removed daily Still has bilateral pedal edema Results & Data ([facility]) Vital Signs (Past 12 Hours) Vital Signs Temp Pulse Resp BP Pulse Ox 11/15/21 22:50 36.9 C 69 18 134/70 97 11/15/21 21:05 71 135/68 96 PG Care Time/CCT Total # of Minutes Spent Total Time Spent with Patient: Total time spent is greater than 50% in coordination of care (as documented) at patient's floor/unit and/or counseling patient: Coding Level of Care Code None Diagnoses Colon cancer C18.9
[2021-11-16 09:09] LABS: BUN Creatinine Ratio 14.9 (10-20); Est GFR (African American) 60.9 ml/min; Est GFR (Non-African American) 52.6 ml/min; Potassium 4.1 mmol/L (3.5-5.1)
[2021-11-16] MEDS: INSULIN ASPART PER UNIT SC SCH ×4 (09:13→21:15)
[2021-11-16] MEDS: INSULIN GLARGINE SOLOSTAR 100 UNITS/ML 3 ML PEN SC SCH ×2 (09:14→21:14)
[2021-11-16] MEDS: ADVANCED PROBIOTIC 1250 MG CAPSULE PO SCH (09:15)
[2021-11-16] MEDS: METOPROLOL TARTRATE 25 MG TAB PO SCH ×2 (09:15→19:39)
[2021-11-16] MEDS: AMOXICILLIN/CLAVULANATE 875 MG TAB PO SCH ×2 (09:15→18:08)
[2021-11-16 11:31] LABS: Component 2 DNR; Source URETERAL STONE
--- NOTE | 2021-11-16 14:07 | Hospitalist Progress Note ---
Date of Service November 16, 2021 Assessment & Plan (1) Colon cancer: Plan: Colon Cancer S/P Laparoscopic Assisted Colon Resection, Umbilical Hernia Repair performed by Dr. Arnol MD on Distended air-filled loops of large and small bowel are suggestive of postoperative ileus CT A/P done on 11/03/21 showed possible post op incision site hematoma, no evidence of dehiscence Ileus resolved on 11/15/21 Tolerating diet well On Augmentin for wound drainage No medical contraindication for discharge Paroxysmal Atrial Fibrillation Cardiology evaluated Not a candidate for anticoagulation at this time in view of recent surgery Continue metoprolol DM type 2 Most recent hemoglobin A1c 8.7 Continue to hold PO diabetic Continue Lantus and insulin sliding scale Glycemic pharm on board for glycemic management Will need insulin dose adjusted upon discharge given less requirement while hospitalized--> discharge insulin dose adjusted SHERRI on CKD stage III -> resolved Cr 1.9>1.8> 1.2>1.3 encourage oral fluid intake monitor crea closely as outpatient Anemia Hb stable in 8s Monitor DVT Px: SQ Heparin CODE STATUS: FULL Disposition: Denied [facility], per CM. Patient only interested in SNF [facility] placement. CM following Admission and Anticipated Discharge Date Admission Date: October 26, 2021 Supervising Physician Co-Signing Physician Notes Attending Addendum: care coordinated with REGINO Gonzales please refer to her notes for full details, I agree with her notes patient seen and examined, records reviewed by myself as well on exam, patient seen resting in bedside chair, comfortable, pleasant States he feels fine overall No abdominal pain, nausea vomiting, tolerating diet well no chest pain, dyspnea, palpitations, dizziness Denies leg pain no other symptoms VS noted and reviewed oriented x2, not in distress, speaks in sentences with no effort nor accessory muscle use normal rate, regular rhythm, no murmurs clear breath sounds bilaterally Positive bilateral lower extremity edema, grade 1-2 No erythema/tenderness/warmth no neuro deficits All labs noted and reviewed ASSESSMENT AND PLAN Bilateral lower extremity edema Patient is +16 L fluid balance Lasix 40 mg IV ordered Monitor closely Status post colonic resection Tolerating diet well On Augmentin other diagnoses and plan of care as per REGINO Gonzales's notes Spenser Hassan MD Subjective Seen and examined in 377-1 in follow up for colon cancer s/p resection on 10/26/21. Sitting in bedside chair, no new complaints. Awaiting SNF placement. Ileus resolved. No fever, chills, CP, SOB, N/V, abdominal pain, dysuria, diarrhea. Review of Systems Review of Systems: At least ten systems reviewed and negative except as noted in the HPI. Physical Exam Physical Exam: Gen: WD/WN, NAD, sitting in bedside chair, A&Ox3 HEENT: Normocephalic, atraumatic, conjunctivae moist, sclerae anicteric, mucous membranes moist Lung: Clear to Auscultation bilaterally, no wheezes/rales/rhonchi Heart: Regular rate, regular rhythm, no murmurs, rubs, or gallops Abdomen: Soft, NT, ND. Surgical dressing c/d/i. +BS x 4 Extremities: 1+ edema (at baseline) Skin: Warm, no rash Results & Data Results & Data ([facility]) Vital Signs (Past 12 Hours) Vital Signs Temp Pulse Resp BP Pulse Ox 11/16/21 08:02 36.7 C 72 16 128/64 95 Laboratory Results BMP 11/16/21 08:38 Sodium 136 Potassium 4.1 Chloride 102 Carbon Dioxide 27 BUN 20 Creatinine 1.34 Glucose 159 H Calcium 8.0 L Diagnostic Findings [facility] X-Ray 10/31/21 07:29 KUB HISTORY: Acute nausea and abdominal distention with recent abdominal surgery s/p R colon resection, bloated/nausea COMPARISON: [facility] 10/27/2020, CT abdomen and pelvis 10/24/2020 FINDINGS: Midline skin jamey. Cholecystectomy. Gaseous distention is noted involving the stomach, large and small bowel.r small bowel loops measure up to 4.2 cm. Large bowel loops measure up to 7.7 cm. Previously noted 6 mm calculus of the right ureterovesicular junction is not identified. Bilateral nephrolithiasis again seen. No pneumoperitoneum or pneumatosis. No fracture. IMPRESSION: 1. Distended air-filled loops of large and small bowel are suggestive of postoperative ileus. Follow-up recommended. 2. Bilateral nephrolithiasis redemonstrated. 3. The previously noted calculus of the right ureterovesicular junction is not identified. ACT 112: Negative or not required by law. The above report was generated using voice recognition software. It may contain grammatical, syntax or spelling errors. Electronically signed by: Jay Hall M.D. 10/31/2021 10:10 AM Abdomen/Pelvis CT 11/03/21 09:03 CT SCAN OF THE ABDOMEN AND PELVIS WITHOUT IV CONTRAST CLINICAL HISTORY: Postoperative abdominal distention. Wound drainage. Generalized abdominal pain. Recent right hemicolectomy. COMPARISON STUDY: Abdominal CT dated 10/24/2020. TECHNIQUE: CT scan of the abdomen and pelvis is performed from the lung bases to the proximal femora. Images are reviewed in the axial, sagittal, and coronal planes. IV contrast was not administered for this examination. A dose lowering technique was utilized adhering to the principles of ALARA. CT DOSE: 1227.41 mGy.cm FINDINGS: Lung bases: The heart is enlarged and without pericardial effusion. The coronary arteries are densely calcified. Diminished attenuation of the cardiac blood pool as compared to the myocardium suggests anemia. The lung bases are clear noting bibasilar segmental atelectasis. There is a small hiatal hernia. Liver: The unenhanced liver is enlarged, measuring 20.5 cm in length. The liver is otherwise normal in contour and attenuation. There is minimal central intrahepatic biliary ductal dilatation. Gallbladder: Surgically absent noting clips in the gallbladder fossa. Spleen: The spleen is enlarged measuring 15.3 cm in length. Pancreas: The unenhanced pancreas is grossly unremarkable. Adrenal glands: Unremarkable. Kidneys: The unenhanced kidneys demonstrate cortical atrophy and are without hydronephrosis. There are at least 4 nonobstructing left renal calculi which measure up to 9 mm, and at least 5 nonobstructing right renal calculi which measure up to 6 mm. No ureteral stone is seen. Left renal cyst measuring up to 4.5 cm. Abdominal vasculature: The abdominal aorta is normal in course and caliber noting moderate atherosclerotic calcification. There is ectasia of the celiac trunk which measures up to 15 mm. Bowel: There is postoperative change of right hemicolectomy with ileocolic anastomosis. There is diffuse distention of fluid-filled small bowel and colon. Small bowel loops measure up to 4 cm in diameter. There is also gaseous distention of the colon. No transition point is identified and the appearance favors a postoperative ileus. Mildly thick-walled loops of small bowel are noted in the right lower quadrant. Peritoneum: No intraperitoneal free air is identified. There is trace perihepatic ascites, as well as trace fluid in the right paracolic gutter. Infiltration is seen throughout the right lower quadrant mesentery, likely on a postoperative basis. Abdominal wall: Midline skin clips are noted. There is approximately 15.5 x 3 x 3.5 cm hyperdense collection deep to the incision site. There is no CT evidence of wound dehiscence. A tiny cutaneous defect along the inferior aspect of the incision with a punctate focus of soft tissue gas are likely related to recent drain removal. Lymphadenopathy: A mildly enlarged gastrohepatic node on image #170 measures 12 mm in short axis. Pelvic viscera: The prostate gland is enlarged and heterogeneous. The bladder w all is thickened and trabeculated indicating chronic outlet obstruction. Skeletal structures: The skeletal structures are osteopenic. There is [id number] lumbosacral spondylosis. No lytic or blastic lesions are seen. IMPRESSION: 1. There is postoperative change of right hemicolectomy with ileocolic anastomosis. 2. There is mild diffuse distention of the fluid-filled small bowel, as well as gaseous distention of the colon. No transition point is identified and the appearance favors a postoperative ileus. Developing obstruction is considered less likely. Clinical correlation will be required. 3. There is trace ascites, as well as mildly thick-walled loops of small bowel in the right lower quadrant. These findings are nonspecific and may be related to recent surgery. Clinical correlation will be required. 4. There is an approximately 15.5 x 3 x 3.5 cm hyperdense collection deep to the midline incision. Although the sterility cannot be assessed by imaging, the density favors a postoperative hematoma. 5. There is no CT evidence of wound dehiscence. 6. Bilateral nephrolithiasis. 7. Cardiomegaly. 8. Hepatosplenomegaly. 9. Additional findings as above. ACT 112: Negative or not required by law. Electronically signed by: Scott Kincaid M.D. 11/03/2021 10:45 AM KUB X-Ray 11/04/21 05:00 KUB CLINICAL HISTORY: Nausea and vomiting. FINDINGS: 3 AP, portable, supine abdominal radiographs are compared to study dated 10/31/2009 and correlated with abdominal CT dated 11/03/2021. Midline skin clips are noted. Cholecystectomy clips are seen in the right upper quadrant. There is persistent gaseous distention of the small bowel comment with loops measuring up to 4 cm in diameter. Gas is also seen in the colon. No evidence of intraperitoneal free air is seen on these supine images. There are no abnormal abdominal calcifications. The bony structures appear intact noting lumbosacral spondylosis. IMPRESSION: There is persistent gaseous distention of the small bowel loops, as well as gas within the colon. Findings favor a postoperative ileus. A small bowel obstruction could appear similar and clinical correlation will be required. Electronically signed by: Scott Kincaid M.D. 11/04/2021 8:50 AM KUB X-Ray 11/05/21 07:00 KUB HISTORY: Acute generalized abdominal pain ileus/sbo COMPARISON: [facility] 11/04/2021, CT abdomen pelvis 11/03/2021 FINDINGS: Midline skin jamey. Numerous air-filled dilated loops of small bowel are noted measuring up to approximately 4.4 cm, previously 3.9 cm. Air is also noted within the large bowel and stomach. Surgical suture material is noted within the abdominal right upper quadrant. No renal calculi. No ureteral calculi. No pneumoperitoneum or pneumatosis. Degenerative changes of the spine, pelvis and hips. No fracture. IMPRESSION: Persistent dilated air-filled loops of small bowel suggestive of postoperative ileus versus obstruction. Follow-up recommended. ACT 112: Negative or not required by law. The above report was generated using voice recognition software. It may contain grammatical, syntax or spelling errors. Electronically signed by: Jay Hall M.D. 11/05/2021 10:00 AM KUB X-Ray 11/08/21 07:26 KUB CLINICAL HISTORY: Follow-up ileus. FINDINGS: 4 AP supine abdominal radiographs are compared to study dated 11/05/2021 and correlated with abdominal CT dated 11/03/2021. Midline skin clips are noted. Cholecystectomy clips are seen in the right upper quadrant. There is persistent gaseous distention of the small bowel loops which measure up to 4.1 cm. Gas and stool are noted in the colon. No evidence of intraperitoneal free air is seen on these supine images. Small renal calculi are noted. The skeletal structures are osteopenic and appear intact. There is moderate lumbosacral spondylosis. IMPRESSION: Mildly dilated loops of small bowel are similar to previous. Findi ngs favor postoperative ileus. Correlate clinically for evidence of bowel obstruction. Electronically signed by: Scott Kincaid M.D. 11/08/2021 12:32 PM
[2021-11-16] MEDS ORDERED: FUROSEMIDE 40 MG/4 ML VIAL IV ONE (18:34)
--- NOTE | 2021-11-17 07:33 | Surgery Progress Note ---
Date of Service November 17, 2021 Assessment & Plan (1) Colon cancer: Plan: POD#22 Patient is able to walk around with a walker at this time appears to be getting stronger Awaiting placement Patient lives alone with his elderly POD#21 Awaiting possible transfer to [facility] he is receiving physical therapy at this time and appears stronger but I feel he is not ready to go home yet POD#20 patient tolerating a diet, no abdominal complaints. no n/v. + bowel function will place order for daily wound packing to be performed pt started augmentin for some midline wound drainage/erythema pt was denied placement to [facility]. will discuss with case management other options...pt wondering if he could go to [facility]? He is medically stable for discharge f/u with dr. perez in 1 week Admission and Anticipated Discharge Date Admission Date: October 26, 2021 Subjective Sitting on the side of bed comfortable States he ate well yesterday had multiple bowel movements no abdominal discomfort no nausea no pain Physical Exam Physical Exam: Alert coherent The abdomen is much softer the incision has one small area in the midportion very superficial with minimal drainage no cellulitis or erythema Lower extremities appear less edematous Weight is down to 100 kg had been as high as 110 kg Results & Data ([facility]) Vital Signs (Past 12 Hours) Vital Signs Temp Pulse Resp BP Pulse Ox 11/16/21 22:50 36.6 C 61 18 117/67 95 11/16/21 19:38 69 127/68 96 Laboratory Results Noted PG Care Time/CCT Total # of Minutes Spent Total Time Spent with Patient: Total time spent is greater than 50% in coordination of care (as documented) at patient's floor/unit and/or counseling patient: Coding Level of Care Code None Diagnoses Colon cancer C18.9
[2021-11-17] MEDS: ADVANCED PROBIOTIC 1250 MG CAPSULE PO SCH (09:21)
[2021-11-17] MEDS: INSULIN ASPART PER UNIT SC SCH ×4 (09:21→21:29)
[2021-11-17] MEDS: INSULIN GLARGINE SOLOSTAR 100 UNITS/ML 3 ML PEN SC SCH ×2 (09:21→21:30)
[2021-11-17] MEDS: METOPROLOL TARTRATE 25 MG TAB PO SCH ×2 (09:21→21:35)
[2021-11-17] MEDS: AMOXICILLIN/CLAVULANATE 875 MG TAB PO SCH ×2 (09:21→17:57)
--- NOTE | 2021-11-17 16:39 | Hospitalist Progress Note ---
Date of Service November 17, 2021 Assessment & Plan (1) Colon cancer: Plan: Colon Cancer S/P Laparoscopic Assisted Colon Resection, Umbilical Hernia Repair performed by Dr. Arnol MD on Distended air-filled loops of large and small bowel are suggestive of postoperative ileus CT A/P done on 11/03/21 showed possible post op incision site hematoma, no evidence of dehiscence Ileus resolved on 11/15/21 Tolerating diet well On Augmentin for wound drainage No medical contraindication for discharge Paroxysmal Atrial Fibrillation Cardiology evaluated Not a candidate for anticoagulation at this time in view of recent surgery Continue metoprolol DM type 2 Most recent hemoglobin A1c 8.7 Continue to hold PO diabetic Continue Lantus and insulin sliding scale Glycemic pharm on board for glycemic management Will need insulin dose adjusted upon discharge given less requirement while hospitalized--> discharge insulin dose adjusted SHERRI on CKD stage III -> resolved Cr 1.9>1.8> 1.2>1.3 encourage oral fluid intake monitor crea closely as outpatient BLE edema Noted during admission, likely component of dependent edema, no SOB Given 40mg IV Lasix yesterday with some improvement Plan to give an additional 40mg IV Lasix today if renal function allows - awaiting bmp Anemia Hb stable in 8s Monitor DVT Px: SQ Heparin CODE STATUS: FULL Disposition: Denied [facility], per CM. Patient only interested in SN[facility] placement. CM following Admission and Anticipated Discharge Date Admission Date: October 26, 2021 Supervising Physician Co-Signing Physician Notes Attending Addendum: care coordinated with REGINO Radha Gonzales please refer to her notes for full details, I agree with her notes patient seen and examined, records reviewed by myself as well on exam, patient seen resting in bed, sitting up Comfortable, not in distress States he feels fine overall No nausea or vomiting, abdominal pain Denies leg pain no other symptoms VS noted and reviewed oriented x2, not in distress, speaks in sentences with no effort nor accessory muscle use normal rate, regular rhythm, no murmurs clear breath sounds bilaterally non distended, soft, nontender Positive grade 1 lower extremity edema- improving no neuro deficits Creatinine 1.4 ASSESSMENT AND PLAN Status post colonic resection Remains stable overall Continue Augmentin Lower leg edema Likely from volume overload Improving with diuresis No erythema/warmth/tenderness other diagnoses and plan of care as per Spenser Hassan MD Subjective Seen and examined in 377-1 in follow up for colon cancer s/p resection on 10/26/21. Sitting in bedside chair, no new complaints. Awaiting SNF placement. Ileus resolved. No fever, chills, CP, SOB, N/V, abdominal pain, dysuria, diarrhea. Review of Systems Review of Systems: At least ten systems reviewed and negative except as noted in the HPI. Physical Exam Physical Exam: Gen: WD/WN, NAD, sitting in bedside chair, A&Ox3 HEENT: Normocephalic, atraumatic, conjunctivae moist, sclerae anicteric, mucous membranes moist Lung: Clear to Auscultation bilaterally, no wheezes/rales/rhonchi Heart: Regular rate, regular rhythm, no murmurs, rubs, or gallops Abdomen: Soft, NT, ND. Surgical dressing c/d/i. +BS x 4 Extremities: 1+ edema Skin: Warm, no rash Results & Data Results & Data ([facility]) Vital Signs (Past 12 Hours) Vital Signs Temp Pulse Pulse Resp BP BP Pulse Ox 11/17/21 15:39 37.0 C 69 18 126/74 97 11/17/21 07:30 36.6 C 70 14 132/70 95
[2021-11-17 16:56] LABS: BUN Creatinine Ratio 15.7 (10-20); Calcium 8.9 mg/dl (8.5-10.1); Creatinine Clr Calc Pharmacy 55.7 ml/min; Est GFR (African American) 57.8 ml/min; Est GFR (Non-African American) 49.8 ml/min; Potassium 4.1 mmol/L (3.5-5.1)
--- NOTE | 2021-11-18 06:21 | Surgery Progress Note ---
Date of Service November 18, 2021 Assessment & Plan (1) S/P colon resection: Plan: Patient's vital signs are stable He is awake and alert He is tolerating p.o. well His abdomen is soft with his dressing in place Beginning to ambulate and getting stronger Awaiting placement Admission and Anticipated Discharge Date Admission Date: October 26, 2021 Results & Data ([facility]) Vital Signs (Past 12 Hours) Vital Signs Temp Pulse Pulse Resp BP Pulse Ox 11/17/21 22:59 37.1 C 71 15 107/58 L 93 11/17/21 21:33 80 120/66 PG Care Time/CCT Total # of Minutes Spent Total Time Spent with Patient: Total time spent is greater than 50% in coordination of care (as documented) at patient's floor/unit and/or counseling patient: Coding Level of Care Code None Diagnoses S/P colon resection Z90.49
[2021-11-18 06:24] LABS: BUN Creatinine Ratio 16.7 (10-20); Calcium 7.8 mg/dl (8.5-10.1); Est GFR (Non-African American) 53.5 ml/min; Potassium 4.1 mmol/L (3.5-5.1)
[2021-11-18] MEDS: AMOXICILLIN/CLAVULANATE 875 MG TAB PO SCH ×2 (08:33→17:37)
[2021-11-18] MEDS: ADVANCED PROBIOTIC 1250 MG CAPSULE PO SCH (08:40)
[2021-11-18] MEDS: METOPROLOL TARTRATE 25 MG TAB PO SCH ×2 (08:40→21:12)
[2021-11-18] MEDS: INSULIN ASPART PER UNIT SC SCH ×4 (08:49→21:07)
[2021-11-18] MEDS: INSULIN GLARGINE SOLOSTAR 100 UNITS/ML 3 ML PEN SC SCH ×2 (08:49→21:06)
[2021-11-18] MEDS ORDERED: FUROSEMIDE 40 MG/4 ML VIAL IV ONE (11:47)
--- NOTE | 2021-11-18 12:44 | Hospitalist Progress Note ---
Date of Service November 18, 2021 Assessment & Plan (1) Colon cancer: Plan: Colon Cancer S/P Laparoscopic Assisted Colon Resection, Umbilical Hernia Repair performed by Dr. Arnol MD on Distended air-filled loops of large and small bowel are suggestive of postoperative ileus CT A/P done on 11/03/21 showed possible post op incision site hematoma, no evidence of dehiscence Ileus resolved on 11/15/21 -- remains stable overall On Augmentin for wound drainage No medical contraindication for discharge Paroxysmal Atrial Fibrillation Cardiology evaluated Not a candidate for anticoagulation at this time in view of recent surgery HR controlled Continue metoprolol DM type 2 Most recent hemoglobin A1c 8.7 Continue to hold PO diabetic Continue Lantus and insulin sliding scale Glycemic pharm on board for glycemic management Will need insulin dose adjusted upon discharge given less requirement while hospitalized--> discharge insulin dose adjusted SHERRI on CKD stage III -> resolved Cr 1.9>1.8> 1.2>1.3 monitor crea closely as outpatient BLE edema Noted during admission, likely component of dependent edema, no SOB additional Lasix 40mg IV today will need PO Lasix on discharge, close monitoring of crea Anemia Hb stable in 8.5 DVT Px: SQ Heparin CODE STATUS: FULL Disposition: awaiting acceptance to SNF Admission and Anticipated Discharge Date Admission Date: October 26, 2021 Subjective ff up for s/p colon resection, etc seen resting in bed, comfortable watching TV states he feels fine overall no abdominal pain, nausea no fever/chills no leg pain no other symptoms Review of Systems Review of Systems: all noted and negative except for above Physical Exam Physical Exam: General- oriented x 2, not in distress, speaks in sentences with no effort or accessory muscle use Eyes- anicteric Neck- no JVD Lungs- clear BS BL Heart- normal rate, regular rhythm; no murmurs Abdomen- normal bowel sounds, nondistended, soft, nontender incision healing well, trace yellow discharge Extremities- grade 1 lower leg edema,no erythema/warmth/tenderness, no calf tenderness Neuro- alert, oriented x 2; no gross focal neurologic deficits Skin- warm & dry Results & Data Results & Data ([facility]) Vital Signs (Past 12 Hours) Vital Signs Temp Pulse Resp BP Pulse Ox 11/18/21 08:16 36.8 C 70 16 137/69 95 all noted and reviewed including below
[2021-11-18] MEDS ORDERED: diphenhydrAMINE Capsule 25 MG CAP PO PRN (21:35)
--- NOTE | 2021-11-19 08:08 | Surgery Progress Note ---
Date of Service November 19, 2021 Assessment & Plan (1) S/P colon resection: Plan: POD#24 Patient doing well. Awaiting placement Tolerating a diet, + bowel function Continue daily wound packing. On augmentin Encourage ongoing activity as able, out of bed as tolerates Case management working on facility placement, pt hopeful for [facility] Admission and Anticipated Discharge Date Admission Date: October 26, 2021 Subjective Patient resting in bed, awaiting breakfast. Would like to get up and walking around more today. No n/v/belly pain. + bowel function. Physical Exam Physical Exam: awake/alert Gastrointestinal (Abdomen): Inspection/Auscultation: + abdominal surgical incision (midline incision with packing to inferior portion, + drainage) Percussion/Palpation: abdomen soft; abdomen nontender Results & Data ([facility]) Vital Signs (Past 12 Hours) Vital Signs Temp Pulse Resp BP Pulse Ox 11/19/21 07:12 36.4 C L 65 16 121/58 L 96 11/18/21 22:04 36.7 C 66 16 112/54 L 95 11/18/21 21:09 70 114/58 L PG Care Time/CCT Total # of Minutes Spent Total Time Spent with Patient: Total time spent is greater than 50% in coordination of care (as documented) at patient's floor/unit and/or counseling patient: Coding Level of Care Code None Diagnoses S/P colon resection Z90.49
[2021-11-19] MEDS: AMOXICILLIN/CLAVULANATE 875 MG TAB PO SCH ×2 (08:09→17:52)
[2021-11-19] MEDS: METOPROLOL TARTRATE 25 MG TAB PO SCH ×2 (08:35→21:15)
[2021-11-19] MEDS: ADVANCED PROBIOTIC 1250 MG CAPSULE PO SCH (08:35)
[2021-11-19] MEDS: INSULIN ASPART PER UNIT SC SCH ×4 (08:38→21:10)
[2021-11-19] MEDS: INSULIN GLARGINE SOLOSTAR 100 UNITS/ML 3 ML PEN SC SCH ×2 (08:39→21:10)
--- NOTE | 2021-11-19 14:55 | Hospitalist Progress Note ---
Date of Service November 19, 2021 Assessment & Plan (1) Colon cancer: Plan: Colon Cancer S/P Laparoscopic Assisted Colon Resection, Umbilical Hernia Repair performed by Dr. Arnol MD on Distended air-filled loops of large and small bowel are suggestive of postoperative ileus CT A/P done on 11/03/21 showed possible post op incision site hematoma, no evidence of dehiscence Ileus resolved on 11/15/21 -- remains stable overall On Augmentin for wound drainage No medical contraindication for discharge Paroxysmal Atrial Fibrillation Cardiology evaluated Not a candidate for anticoagulation at this time in view of recent surgery HR controlled Continue metoprolol DM type 2 Most recent hemoglobin A1c 8.7 Continue to hold PO diabetic Continue Lantus and insulin sliding scale Glycemic pharm on board for glycemic management Will need insulin dose adjusted upon discharge given less requirement while hospitalized--> discharge insulin dose adjusted SHERRI on CKD stage III -> resolved Cr 1.9>1.8> 1.2>1.3 monitor crea closely as outpatient BLE edema Noted during admission, likely component of dependent edema, no SOB given Lasix 40mg IV x 2, improving Lasix 20mg po daily started will need PO Lasix on discharge, close monitoring of crea Anemia Hb stable in 8.5 DVT Px: SQ Heparin CODE STATUS: FULL Disposition: awaiting acceptance to SNF Admission and Anticipated Discharge Date Admission Date: October 26, 2021 Subjective ff up for colonic resection, etc seen resting in chair, watching TV states he feels fine overall no chest pain, dyspnea, palpitations, dizziness no abdominal pain, nausea no chills no leg pain no other symptoms Review of Systems Review of Systems: all noted and negative except for above Physical Exam Physical Exam: General- oriented x 2, not in distress, speaks in sentences with no effort or accessory muscle use Eyes- anicteric Neck- no JVD Lungs- clear breath sounds no crackles no wheezing Heart- normal rate, regular rhythm; no murmurs Abdomen- normal bowel sounds, nondistended, soft, nontender Extremities-grade 1 lower leg edema, no calf tenderness Neuro- alert, oriented x 2; no new gross focal neurologic deficits Skin- warm & dry Results & Data Results & Data ([facility]) Vital Signs (Past 12 Hours) Vital Signs Temp Pulse Resp BP Pulse Ox 11/19/21 07:12 36.4 C L 65 16 121/58 L 96
[2021-11-19] MEDS: FUROSEMIDE 20 MG TAB PO SCH (15:12)
[2021-11-19] MEDS ORDERED: MIRTAZAPINE TAB 15 MG TAB PO SCH (21:15)
[2021-11-19] MEDS: TRIAMCINOLONE ACET 0.1% CR 15 GM TUBE TOP SCH (21:58)
--- NOTE | 2021-11-20 07:44 | Surgery Progress Note ---
Date of Service November 20, 2021 Assessment & Plan (1) S/P colon resection: Plan: POD#25 -Patient more drowsy this AM than his usual. Will d/c his nighttime sleep aids at this time -Otherwise patient is doing well. Tolerating a diet, + bowel function. No pain -Continue daily wound packing, wound tunnels the length of the incision. On augmentin for wound drainage. Erythema improving -Encourage ongoing activity as able, out of bed as tolerates. Can work with PT/OT upstairs if able -Case management working on facility placement, pt hopeful for [facility]. We prefer patient be discharged to facility given his home status with elderly at home and needs for ongoing pt/ot and daily dressing changes -Pt seen/examined with Dr. Ambrose Admission and Anticipated Discharge Date Admission Date: October 26, 2021 Subjective Patient resting in bed, not as awake as he usually is. He offers no abdominal complaints. Tolerating diet. + bowel function. Physical Exam Physical Exam: sleepy,but arousable Respiratory: normal respiratory effort Gastrointestinal (Abdomen): Inspection/Auscultation: + abdominal surgical incision (midline incision w/ packing in place (some bloody/purulent drainage)) Percussion/Palpation: abdomen soft; abdomen nontender Results & Data ([facility]) Vital Signs (Past 12 Hours) Vital Signs Temp Pulse Pulse Resp BP Pulse Ox 11/20/21 07:22 36.7 C 73 18 134/62 95 11/19/21 23:19 36.9 C 67 17 113/65 95 11/19/21 21:14 77 120/67 PG Care Time/CCT Total # of Minutes Spent Total Time Spent with Patient: Total time spent is greater than 50% in coordination of care (as documented) at patient's floor/unit and/or counseling patient: Coding Level of Care Code None Diagnoses S/P colon resection Z90.49
[2021-11-20] MEDS: TRIAMCINOLONE ACET 0.1% CR 15 GM TUBE TOP SCH ×2 (08:40→21:11)
[2021-11-20] MEDS: FUROSEMIDE 20 MG TAB PO SCH (08:40)
[2021-11-20] MEDS: METOPROLOL TARTRATE 25 MG TAB PO SCH ×2 (08:40→21:12)
[2021-11-20] MEDS: ADVANCED PROBIOTIC 1250 MG CAPSULE PO SCH (08:40)
[2021-11-20] MEDS: AMOXICILLIN/CLAVULANATE 875 MG TAB PO SCH ×2 (08:40→17:56)
[2021-11-20] MEDS: INSULIN GLARGINE SOLOSTAR 100 UNITS/ML 3 ML PEN SC SCH ×2 (08:42→21:12)
[2021-11-20] MEDS: INSULIN ASPART PER UNIT SC SCH ×4 (08:45→21:15)
[2021-11-20 10:10] LABS: BUN Creatinine Ratio 14.3 (10-20); Calcium 8.9 mg/dl (8.5-10.1); Creatinine Clr Calc Pharmacy 52.5 ml/min; Est GFR (African American) 54.5 ml/min; Potassium 3.9 mmol/L (3.5-5.1)
--- NOTE | 2021-11-20 16:53 | Hospitalist Progress Note ---
Date of Service November 20, 2021 Assessment & Plan (1) Colon cancer: Plan: Colon Cancer S/P Laparoscopic Assisted Colon Resection, Umbilical Hernia Repair performed by Dr. Arnol MD on Distended air-filled loops of large and small bowel are suggestive of postoperative ileus CT A/P done on 11/03/21 showed possible post op incision site hematoma, no evidence of dehiscence Ileus resolved on 11/15/21 -- remains stable overall On Augmentin for wound drainage No medical contraindication for discharge Paroxysmal Atrial Fibrillation Cardiology evaluated Not a candidate for anticoagulation at this time in view of recent surgery HR controlled Continue metoprolol DM type 2 Most recent hemoglobin A1c 8.7 Continue to hold PO diabetic Continue Lantus and insulin sliding scale Glycemic pharm on board for glycemic management Will need insulin dose adjusted upon discharge given less requirement while hospitalized--> discharge insulin dose adjusted SHERRI on CKD stage III -> resolved Cr 1.9>1.8> 1.2>1.3 monitor crea closely as outpatient BLE edema Noted during admission, likely component of dependent edema, no SOB given Lasix 40mg IV x 2, improving leg edema improving Continue with Lasix 20mg po daily Anemia Hb stable in 8.5 DVT Px: SQ Heparin CODE STATUS: FULL Disposition: awaiting acceptance to SNF Admission and Anticipated Discharge Date Admission Date: October 26, 2021 Subjective Follow-up for status post colonic resection, etc. Seen sitting up in bedside chair, comfortable, not in distress Awake, alert, oriented x2, answers questions appropriately States he feels fine overall No leg pain, chest pain, palpitations, dizziness Tolerating diet well no Abdominal pain No nausea vomiting No other symptoms Review of Systems Review of Systems: all noted and negative except for above Physical Exam Physical Exam: General- oriented x 2, not in distress, speaks in sentences with no effort or accessory muscle use Eyes- anicteric Neck- no JVD Lungs- clear breath sounds bilaterally Heart- normal rate, regular rhythm; no murmurs Abdomen- normal bowel sounds, nondistended, soft, nontender Extremities-grade 1 lower extremity edema Neuro- alert, oriented x 3; no gross focal neurologic deficits Skin- warm & dry Results & Data Results & Data ([facility]) Vital Signs (Past 12 Hours) Vital Signs Temp Pulse Pulse Pulse Resp BP Pulse Ox 11/20/21 15:30 37.0 C 73 18 122/68 93 11/20/21 07:40 36.7 C 73 14 134/64 95 11/20/21 07:22 36.7 C 73 18 134/62 95 all noted and reviewed including below
--- NOTE | 2021-11-21 07:29 | Surgery Progress Note ---
Date of Service November 21, 2021 Assessment & Plan (1) S/P colon resection: Plan: POD#26 -Pt more awake/alert this AM -He continue to do well. Tolerating a diet, + bowel function. No pain -Continue daily wound packing, wound tunnels the length of the incision. On augmentin for wound drainage. Erythema improving -Encourage ongoing activity as able, out of bed as tolerates. Can work with PT/OT upstairs if able -Case management working on facility placement, pt hopeful for [facility]. Patient has needs for ongoing pt/ot and daily dressing changes -Pt seen/examined with Dr. Ambrose Admission and Anticipated Discharge Date Admission Date: October 26, 2021 Subjective Patient doing well. Offers no complaints. More awake this AM. Tolerating diet. No Pain. + bowel function. Been working with PT/OT Physical Exam Physical Exam: awake/alert, resting in bed Gastrointestinal (Abdomen): Inspection/Auscultation: + abdominal surgical incision (midline incision with bloody/purulent drainage. packed w nu guaze); abdomen not distended Results & Data ([facility]) Vital Signs (Past 12 Hours) Vital Signs Temp Pulse Resp BP Pulse Ox 11/20/21 23:18 36.6 C 68 18 125/65 98 PG Care Time/CCT Total # of Minutes Spent Total Time Spent with Patient: Total time spent is greater than 50% in coordination of care (as documented) at patient's floor/unit and/or counseling patient: Coding Level of Care Code None Diagnoses S/P colon resection Z90.49
[2021-11-21] MEDS: FUROSEMIDE 20 MG TAB PO SCH (08:08)
[2021-11-21] MEDS: AMOXICILLIN/CLAVULANATE 875 MG TAB PO SCH ×2 (08:08→17:46)
[2021-11-21] MEDS: METOPROLOL TARTRATE 25 MG TAB PO SCH ×2 (08:08→21:19)
[2021-11-21] MEDS: TRIAMCINOLONE ACET 0.1% CR 15 GM TUBE TOP SCH ×2 (08:08→21:19)
[2021-11-21] MEDS: ADVANCED PROBIOTIC 1250 MG CAPSULE PO SCH (08:08)
[2021-11-21 09:06] LABS: BUN Creatinine Ratio 15.4 (10-20); Calcium 8.2 mg/dl (8.5-10.1); Creatinine Clr Calc Pharmacy 54.1 ml/min; Est GFR (African American) 56.3 ml/min; Est GFR (Non-African American) 48.6 ml/min; Potassium 4.1 mmol/L (3.5-5.1)
[2021-11-21] MEDS: INSULIN GLARGINE SOLOSTAR 100 UNITS/ML 3 ML PEN SC SCH ×2 (09:09→21:18)
[2021-11-21] MEDS: INSULIN ASPART PER UNIT SC SCH ×4 (09:09→21:16)
--- NOTE | 2021-11-21 15:10 | Hospitalist Progress Note ---
Date of Service November 21, 2021 Assessment & Plan (1) Colon cancer: Plan: Colon Cancer S/P Laparoscopic Assisted Colon Resection, Umbilical Hernia Repair performed by Dr. Arnol MD on Distended air-filled loops of large and small bowel are suggestive of postoperative ileus CT A/P done on 11/03/21 showed possible post op incision site hematoma, no evidence of dehiscence Ileus resolved on 11/15/21 -- continues to remain statble On Augmentin for wound drainage No medical contraindication for discharge Paroxysmal Atrial Fibrillation Cardiology evaluated Not a candidate for anticoagulation at this time in view of recent surgery HR controlled Continue metoprolol DM type 2 Most recent hemoglobin A1c 8.7 Continue to hold PO diabetic Continue Lantus and insulin sliding scale Glycemic pharm on board for glycemic management Will need insulin dose adjusted upon discharge given less requirement while hospitalized--> discharge insulin dose adjusted SHERRI on CKD stage III -> resolved Cr 1.9>1.8> 1.2>1.3 monitor crea closely as outpatient BLE edema Noted during admission, likely component of dependent edema, no SOB given Lasix 40mg IV x 2, improving leg edema improving Continue with Lasix 20mg po daily Anemia Hb stable in 8.5 DVT Px: SQ Heparin CODE STATUS: FULL Disposition: awaiting acceptance to SNF Admission and Anticipated Discharge Date Admission Date: October 26, 2021 Subjective Follow-up for colonic resection, etc. Seen sitting up in bedside chair, comfortable, watching TV, in good spirits States he feels fine overall No abdominal pain, nausea vomiting, fevers or chills No shortness of breath, chest pain palpitations, dizziness No leg pain No other symptoms Review of Systems Review of Systems: all noted and negative except for above Physical Exam Physical Exam: General- oriented x 2, not in distress, speaks in sentences with no effort or accessory muscle use Eyes- anicteric Neck- no JVD Lungs- clear BS BL no crackles Heart- normal rate, regular rhythm; no murmurs Abdomen- normal bowel sounds, nondistended, soft, nontender Extremities- grade 1 lower leg edema- no erythema/warmth/tenderness Neuro- alert, oriented x 3; no gross focal neurologic deficits Skin- warm & dry Results & Data Results & Data ([facility]) Vital Signs (Past 12 Hours) Vital Signs Temp Pulse Resp BP Pulse Ox 11/21/21 07:21 36.9 C 77 16 130/66 94 all noted and reviewed including below
--- NOTE | 2021-11-22 07:28 | Surgery Progress Note ---
Date of Service November 22, 2021 Assessment & Plan (1) S/P colon resection: Plan: POD#27 wound packing changed waiting for placement Pt seen with Dr. Ambrose Admission and Anticipated Discharge Date Admission Date: October 26, 2021 Subjective no new issues, ambulating with walker Physical Exam Constitutional: no acute distress Gastrointestinal (Abdomen): Inspection/Auscultation: + abdominal surgical in cision (some drainage); abdomen not distended Results & Data ([facility]) Vital Signs (Past 12 Hours) Vital Signs Temp Pulse Resp BP Pulse Ox 11/21/21 22:58 36.8 C 65 14 116/53 L 94 PG Care Time/CCT Total # of Minutes Spent Total Time Spent with Patient: Total time spent is greater than 50% in coordination of care (as documented) at patient's floor/unit and/or counseling patient: Coding Level of Care Code None Diagnoses S/P colon resection Z90.49
[2021-11-22] MEDS: INSULIN GLARGINE SOLOSTAR 100 UNITS/ML 3 ML PEN SC SCH ×2 (09:03→21:12)
[2021-11-22] MEDS: FUROSEMIDE 20 MG TAB PO SCH (09:03)
[2021-11-22] MEDS: ADVANCED PROBIOTIC 1250 MG CAPSULE PO SCH (09:03)
[2021-11-22] MEDS: AMOXICILLIN/CLAVULANATE 875 MG TAB PO SCH ×2 (09:03→17:39)
[2021-11-22] MEDS: TRIAMCINOLONE ACET 0.1% CR 15 GM TUBE TOP SCH ×2 (09:04→21:11)
[2021-11-22] MEDS: INSULIN ASPART PER UNIT SC SCH ×4 (09:07→21:19)
[2021-11-22] MEDS: METOPROLOL TARTRATE 25 MG TAB PO SCH ×2 (10:11→21:13)
--- NOTE | 2021-11-22 11:21 | Hospitalist Progress Note ---
Date of Service November 22, 2021 Assessment & Plan (1) Colon cancer: Plan: Colon Cancer S/P Laparoscopic Assisted Colon Resection, Umbilical Hernia Repair performed by Dr. Arnol MD on POD # 27 Distended air-filled loops of large and small bowel are suggestive of postoperative ileus CT A/P done on 11/03/21 showed possible post op incision site hematoma, no evidence of dehiscence Ileus resolved on 11/15/21 -- continues to remain statble On Augmentin for wound drainage No medical contraindication for discharge Paroxysmal Atrial Fibrillation Cardiology evaluated Not a candidate for anticoagulation at this time in view of recent surgery HR controlled Continue metoprolol DM type 2 Most recent hemoglobin A1c 8.7 Continue to hold PO diabetic Continue Lantus and insulin sliding scale Glycemic pharm on board for glycemic management Will need insulin dose adjusted upon discharge given less requirement while hospitalized--> discharge insulin dose adjusted SHERRI on CKD stage III -> resolved Cr 1.9>1.8> 1.2>1.3 monitor crea closely as outpatient BLE edema Noted during admission, likely component of dependent edema, no SOB given Lasix 40mg IV x 2, improving leg edema improving Continue with Lasix 20mg po daily Anemia Hb stable in 8.5 DVT Px: it has been documented pt has been receiving SQ heparin; however this is not on hi med list, will confirm with surg no contraindication and initiate if able CODE STATUS: FULL Disposition: awaiting acceptance to SNF Pt was seen and examined in collaboration with Dr. Pineda, please see addendum Admission and Anticipated Discharge Date Admission Date: October 26, 2021 Supervising Physician Co-Signing Physician Notes Patient is seen and examined at bedside. Denies any chest pain, shortness breath, dizziness, nausea, abdominal pain. Leg edema slowly improving. Waiting for rehab placement. On exam patient is obese, no apparent distress, normocephalic atraumatic, EOMI, normal breath sounds, clear to auscultation, S1- S2, +murmur, bilateral lower extremity edema, abdomen soft, nontender, normal bowel sounds, alert, awake, oriented, grossly no focal deficits. Colon cancer S/P laparoscopic resection, umbilical hernia repair. Doing well postoperatively. Postoperative ileus resolved. Tolerating diet. On Augmentin for wound drainage. Continue Lasix to help with volume status. Monitor volume status closely. Continue metoprolol for paroxysmal A. fib. SHERRI resolved. Monitor renal function. Plan to discharge to SNF when arranged. I personally reviewed the record. Patient is interviewed and examined at bedside. Patient's care is coordinated with Lyndsey Souza PA-C. Please refer to the documentation above for details of patient's presentation and for discussion of other issues. Subjective Patient was seen and examined in room 377 Follow-up colon cancer status post laparoscopic resection with residual wound. He is sitting up in bedside chair without acute concerns. He denies fever, chills, sweats, lightheadedness, dizziness, chest pain, shortness of breath, nausea, vomiting, abdominal pain. He is moving his bowels. He offers no acute concerns and patient is planning to discharge to rehab. Per case management he has no physical needs however he does have daily wound care. Review of Systems Review of Systems: All systems reviewed & are unremarkable except as noted in HPI & below Physical Exam Physical Exam: Gen: WD/WN, male, sitting up in bedside chair, NAD, A&O x3 HEENT: Normocephalic, atraumatic, conjunctivae moist, sclerae anicteric, mucous membranes moist. Lung: Clear to Auscultation bilaterally, no wheezes/rales/rhonchi Heart: Regular rate, regular rhythm, 2/6 MUMTAZ noted RUSB, no rubs, or gallops Abdomen: Soft, NT, ND +BS x 4 Extremities: No edema Skin: Warm, no rash, negative turgor. Results & Data Results & Data ([facility]) Vital Signs (Past 12 Hours) Vital Signs Temp Pulse Resp BP Pulse Ox 11/22/21 10:11 80 117/65 11/22/21 07:36 36.8 C 72 18 117/64 94 Medications Administered Current Inpatient Medications Acetaminophen (Acetaminophen 325 Mg Tab) 650 mg PO Q6H PRN PRN Reason: Fever/pain Stop: 11/29/21 00:04 Last Admin: 11/06/21 10:50 Dose: 650 mg Documented by: Albuterol (Albuterol Hfa 8 Gm Inhaler) 1 puffs INH TID PRN PRN Reason: shortness of breath or wheezing Stop: 11/25/21 17:54 Amoxicillin/Clavulanate Potassium (Amoxicillin/Clavulanate 875 Mg Tab) 1 tab PO BIDM [facility]; Protocol Stop: 11/25/21 07:59 Last Admin: 11/22/21 09:03 Dose: 1 tab Documented by: Dextrose (Dextrose 50% 50 Ml Syringe) 25 - 50 ml IV UD PRN; Protocol PRN Reason: Hypoglycemia Protocol Stop: 11/25/21 17:54 Diphenhydramine HCl (Diphenhydramine Capsule 25 Mg Cap) 25 mg PO BID PRN PRN Reason: Itching Stop: 12/18/21 21:34 Last Admin: 11/18/21 21:58 Dose: 25 mg Documented by: Furosemide (Furosemide 20 Mg Tab) 20 mg PO QAM [facility] Stop: 12/19/21 14:14 Last Admin: 11/22/21 09:03 Dose: 20 mg Documented by: Glucagon (Glucagon For Inj 1 Mg Vial) 1 mg SQ UD PRN; Protocol PRN Reason: Hypoglycemia Protocol Stop: 11/25/21 17:54 Glucose (Glucose 10 Tabs/Tube) 4 - 8 tabs PO UD PRN; Protocol PRN Reason: Hypoglycemia Protocol Stop: 11/25/21 17:54 Glucose (Glucose 40% Gel 15 Gm Tube) 15 - 30 gm PO UD PRN; Protocol PRN Reason: Hypoglycemia Protocol Stop: 11/25/21 17:54 Heparin Sodium (Beef Lung) (Heparin 10 Unit/Ml 5 Ml Flush) 5 ml FLUSH PRN PRN PRN Reason: Flush Stop: 12/06/21 12:15 Last Admin: 11/22/21 08:08 Dose: 5 ml Documented by: Promethazine HCl 12.5 mg/ (Sodium Chloride) 50.5 mls @ 202 mls/hr IV Q6H PRN PRN Reason: Nausea And Vomiting Stop: 12/04/21 16:15 Last Infusion: 11/04/21 17:44 Dose: Infused Documented by: Dextrose (D10w) 1,000 mls @ 0 mls/hr IV .Q0M PRN PRN Reason: protocol (see label comments) Stop: 12/06/21 15:59 Insulin Aspart (Insulin Aspart Per Unit) 0 units SC ACHS [facility] Stop: 12/04/21 07:04 Last Admin: 11/22/21 09:07 Dose: 11 units Documented by: Insulin Glargine (Insulin Glargine Solostar 100 Units/Ml 3 Ml Pen) 20 units SC BID [facility] Stop: 12/10/21 08:59 Last Admin: 11/22/21 09:03 Dose: 20 units Documented by: Lactobacillus Acidophilus (Advanced Probiotic 1250 Mg Capsule) 2 cap PO DAILY [facility] Stop: 12/11/21 15:44 Last Admin: 11/22/21 09:03 Dose: 2 cap Documented by: Metoprolol Tartrate (Metoprolol Tartrate 25 Mg Tab) 25 mg PO BID [facility] Stop: 12/01/21 20:59 Last Admin: 11/22/21 10:11 Dose: 25 mg Documented by: Miscellaneous (Carbohydrates For Hypoglycemia ) 15 - 30 gm PO UD PRN PRN Reason: Hypoglycemia Protocol Stop: 11/25/21 17:54 Last Admin: 11/09/21 21:10 Dose: 45 gm Documented by: Ondansetron HCl (Ondansetron Inj 2 Mg/Ml 2 Ml Vial) 4 mg IV Q4H PRN PRN Reason: Nausea And Vomiting Stop: 11/25/21 17:54 Last Admin: 11/04/21 16:35 Dose: 4 mg Documented by: Triamcinolone Acetonide (Triamcinolone Acet 0.1% Cr 15 Gm Tube) 1 appln TOP BID [facility] Stop: 12/19/21 21:14 Last Admin: 11/22/21 09:04 Dose: 1 appln Documented by:
[2021-11-22] MEDS: HEPARIN SOD 5,000 UNIT/0.5 ML VIAL SQ SCH ×2 (15:11→21:27)
[2021-11-23] MEDS: HEPARIN SOD 5,000 UNIT/0.5 ML VIAL SQ SCH ×4 (05:48→21:00)
[2021-11-23] MEDS: ADVANCED PROBIOTIC 1250 MG CAPSULE PO SCH (08:36)
[2021-11-23] MEDS: FUROSEMIDE 20 MG TAB PO SCH (08:36)
[2021-11-23] MEDS: AMOXICILLIN/CLAVULANATE 875 MG TAB PO SCH ×2 (08:36→17:42)
[2021-11-23] MEDS: INSULIN ASPART PER UNIT SC SCH ×4 (09:21→20:51)
[2021-11-23] MEDS: METOPROLOL TARTRATE 25 MG TAB PO SCH ×2 (09:22→20:51)
[2021-11-23] MEDS: TRIAMCINOLONE ACET 0.1% CR 15 GM TUBE TOP SCH ×2 (09:22→20:50)
[2021-11-23] MEDS: INSULIN GLARGINE SOLOSTAR 100 UNITS/ML 3 ML PEN SC SCH ×2 (09:22→20:51)
[2021-11-23] MEDS ORDERED: LIDOCAINE 1% LOCAL 20 ML VIAL INJ ONE (10:09)
[2021-11-23 10:10] LABS: BUN Creatinine Ratio 17.2 (10-20); Creatinine Clr Calc Pharmacy 57.6 ml/min; Est GFR (African American) 60.9 ml/min; Est GFR (Non-African American) 52.6 ml/min; Potassium 4.2 mmol/L (3.5-5.1)
[2021-11-23] MEDS ORDERED: LIDOCAINE 1% LOCAL 20 ML VIAL ONE (10:15)
--- NOTE | 2021-11-23 12:07 | Surgery Progress Note ---
Date of Service November 23, 2021 Assessment & Plan (1) S/P colon resection: Plan: POD#28 wound opened further at bedside by Dr. Ambrose cultures sent if possible home health can change dressing (4x4 packing) daily or every other day Admission and Anticipated Discharge Date Admission Date: October 26, 2021 Subjective no new complaints Physical Exam Gastrointestinal (Abdomen): Inspection/Auscultation: + abdominal surgical incision (less drainage, packing in place); abdomen not distended Results & Data ([facility]) Vital Signs (Past 12 Hours) Vital Signs Temp Pulse Pulse Resp BP Pulse Ox 11/23/21 07:27 36.8 C 70 16 120/72 95 11/23/21 00:36 36.9 C 66 18 109/61 91 PG Care Time/CCT Total # of Minutes Spent Total Time Spent with Patient: Total time spent is greater than 50% in coordination of care (as documented) at patient's floor/unit and/or counseling patient: Coding Level of Care Code None Diagnoses S/P colon resection Z90.49
--- NOTE | 2021-11-23 13:48 | Hospitalist Progress Note ---
Date of Service November 23, 2021 Assessment & Plan (1) Colon cancer: Plan: Colon Cancer S/P Laparoscopic Assisted Colon Resection, Umbilical Hernia Repair performed by Dr. Arnol MD on KUB XR 10/31/21 - distended air-filled loops of large and small bowel are suggestive of postoperative ileus CT A/P done on 11/03/21 showed postoperative ileus, possible post op incision site hematoma, no evidence of dehiscence Ileus resolved on 11/15/21 On Augmentin (day 9) for wound drainage. Culture sent by general surgery today. No medical contraindication for discharge Paroxysmal Atrial Fibrillation Cardiology evaluated Not a candidate for anticoagulation at this time in view of recent surgery HR controlled Continue metoprolol DM type 2 Most recent hemoglobin A1c 8.7 Continue to hold PO diabetic Continue Lantus and insulin sliding scale Glycemic pharm on board for glycemic management Will need insulin dose adjusted upon discharge given less requirement while hospitalized--> discharge insulin dose adjusted SHERRI on CKD stage III -> resolved Creatinine peaked 1.9 on 11/08/2021 Creatinine 1.3 today, at baseline BLE edema Noted during admission, likely component of dependent edema, no SOB Echo 11/01/2021-EF 55 to 60%, grade 1 diastolic dysfunction, no significant valvular disease given Lasix 40mg IV x 2, improving leg edema improving Continue with Lasix 20mg po daily Anemia Likely anemia of chronic disease Hgb 8.5 11/15/2021 Recent baseline ~ 7.5-8.5 DVT Px: SQ heparin Disposition: Per primary service. Case management working on outpatient wound care management (home health and/or [place] or [facility] wound care center) Admission and Anticipated Discharge Date Admission Date: October 26, 2021 Supervising Physician Co-Signing Physician Notes Patient is seen and examined at bedside. Clinically no significant change from yesterday. Denies any chest pain, shortness breath, dizziness, nausea, abdominal pain. Leg edema slowly improving. Waiting for rehab placement. Denied by insurance for rehab placement. On exam patient is obese, no apparent distress, normocephalic atraumatic, EOMI, normal breath sounds, clear to auscultation, S1- S2, +murmur, bilateral lower extremity edema, abdomen soft, nontender, normal bowel sounds, alert, awake, oriented, grossly no focal deficits. Colon cancer S/P laparoscopic resection, umbilical hernia repair. Doing well postoperatively. Postoperative ileus resolved. Tolerating diet. On Augmentin for wound drainage. Continue Lasix to help with volume status. Monitor volume status closely. Continue metoprolol for paroxysmal A. fib. SHERRI resolved. Monitor renal function. Case management to help with discharge planning. I personally reviewed the record. Patient is interviewed and examined at bedside. Patient's care is coordinated with Faye boogie [employer]. Please refer to the documentation above for details of patient's presentation and for discussion of other issues. Subjective Patient seen and examined. Follow-up for postop medical management. Patient offers no complaints. Eager to be discharged. No chest pain or shortness of breath. Denies abdominal pain or nausea. Urinating and + BM without difficulty. Review of Systems Review of Systems: ROS per HPI, all other systems reviewed and negative Physical Exam Constitutional: WD/WN, vitals as above no acute distress Respiratory: normal respiratory effort, lungs clear to auscultation Cardiovascular: Rate/Rhythm: regular rate and regular rhythm Vessels: normal peripheral pulses Extremities: no edema Gastrointestinal (Abdomen): Percussion/Palpation: abdomen soft; abdomen nontender Skin: no rashes, warm and dry Midline abdominal incision dressing in place with minimal bloody drainage that has been outlined, no surrounding erythema noted Neurologic: no focal motor deficits Psychiatric: A+Ox3, euthymic affect Results & Data Results & Data ([facility]) Vital Signs (Past 12 Hours) Vital Signs Temp Pulse Resp BP Pulse Ox 11/23/21 07:27 36.8 C 70 16 120/72 95 Laboratory Results [facility] 11/23/21 09:30 Sodium 134 L Potassium 4.2 Chloride 98 Carbon Dioxide 29 BUN 23 Creatinine 1.34 Glucose 248 H Calcium 9.0
[2021-11-24] MEDS: HEPARIN SOD 5,000 UNIT/0.5 ML VIAL SQ SCH ×3 (05:55→20:14)
--- NOTE | 2021-11-24 07:16 | Surgery Progress Note ---
Date of Service November 24, 2021 Assessment & Plan (1) S/P colon resection: Plan: POD#29 Awaiting disposition for the wound care involved changing a 4 x 4 packing once a day for the most every other day POD#28 wound opened further at bedside by Dr. Ambrose cultures sent if possible home health can change dressing (4x4 packing) daily or every other day Admission and Anticipated Discharge Date Admission Date: October 26, 2021 Subjective Feels fine eating well no abdominal discomfort bowels are moving Physical Exam Physical Exam: Packing from the wound was removed moderate amount of drainage noted but started to granulate in the rest of the abdomen is completely benign The size of the wound is approximately 8 cm in length 1 cm in diameter and 1 cm in depth with slight bloody drainage nonpurulent noted on the gauze Results & Data ([facility]) Vital Signs (Past 12 Hours) Vital Signs Temp Pulse Resp BP Pulse Ox 11/23/21 20:42 37 C 80 16 116/66 95 PG Care Time/CCT Total # of Minutes Spent Total Time Spent with Patient: Total time spent is greater than 50% in coordination of care (as documented) at patient's floor/unit and/or counseling patient: Coding Level of Care Code None Diagnoses S/P colon resection Z90.49
[2021-11-24] MEDS: FUROSEMIDE 20 MG TAB PO SCH (08:29)
[2021-11-24] MEDS: INSULIN GLARGINE SOLOSTAR 100 UNITS/ML 3 ML PEN SC SCH ×2 (08:29→20:57)
[2021-11-24] MEDS: METOPROLOL TARTRATE 25 MG TAB PO SCH ×2 (08:29→20:13)
[2021-11-24] MEDS: INSULIN ASPART PER UNIT SC SCH ×4 (08:29→20:57)
[2021-11-24] MEDS: TRIAMCINOLONE ACET 0.1% CR 15 GM TUBE TOP SCH ×2 (08:30→20:14)
[2021-11-24] MEDS: ADVANCED PROBIOTIC 1250 MG CAPSULE PO SCH (08:30)
[2021-11-24] MEDS: AMOXICILLIN/CLAVULANATE 875 MG TAB PO SCH ×2 (08:30→18:05)
[2021-11-24 08:34] LABS: Hematocrit (blood only) 26.7 % (42-52); Hemoglobin 8.2 g/dL (14.0-18.0); Mean Corpuscular Hemoglobin 25.8 pg (25-34); Mean Corpuscular Hgb Conc 30.7 g/dL (32-36); Mean Platelet Volume 8.9 fL (7.4-10.4); Platelet Count 249 K/uL (130-400); RDW Coefficient of Variation 15.6 % (11.5-14.5); RDW Standard Deviation 48.5 fL (36.4-46.3); Red Blood Count 3.18 M/uL (4.7-6.1); White Blood Count 6.14 K/uL (4.8-10.8)
--- NOTE | 2021-11-24 14:05 | Hospitalist Progress Note ---
Date of Service November 24, 2021 Assessment & Plan (1) Colon cancer: Plan: Colon Cancer S/P Laparoscopic Assisted Colon Resection, Umbilical Hernia Repair performed by Dr. Arnol MD on KUB XR 10/31/21 - distended air-filled loops of large and small bowel are suggestive of postoperative ileus CT A/P done on 11/03/21 showed postoperative ileus, possible post op incision site hematoma, no evidence of dehiscence Ileus resolved on 11/15/21 On Augmentin (day 10) for wound drainage. Culture growing staph species, sensitivities pending. Would hold on discharge until sensitivities result. Paroxysmal Atrial Fibrillation Cardiology evaluated Not a candidate for anticoagulation at this time in view of recent surgery HR controlled Continue metoprolol DM type 2 Most recent hemoglobin A1c 8.7 Continue to hold PO diabetic Continue Lantus and insulin sliding scale Glycemic pharm on board for glycemic management Will need insulin dose adjusted upon discharge given less requirement while hospitalized--> discharge insulin dose adjusted SHERRI on CKD stage III -> resolved Creatinine peaked 1.9 on 11/08/2021 Creatinine 1.3 today, at baseline BLE edema Noted during admission, likely component of dependent edema, no SOB Echo 11/01/2021-EF 55 to 60%, grade 1 diastolic dysfunction, no significant valvular disease given Lasix 40mg IV x 2, improving leg edema improving Continue with Lasix 20mg po daily --> recommend discharging on Lasix 20 mg MWF --> prescription provided in discharge Anemia Likely anemia of chronic disease Hgb 8.5 11/15/2021 --> 8.2 today Recent baseline ~ 7.5-8.5 Recommend close outpatient follow-up w/ PCP for repeat labs DVT Px: SQ heparin Disposition: Per primary service. Case management working on outpatient wound care management. willing to learn wound care and dressing instructions. Admission and Anticipated Discharge Date Admission Date: October 26, 2021 Supervising Physician Co-Signing Physician Notes Patient is seen and examined at bedside. Doing well today. No new complaints. Denies any chest pain, shortness breath, dizziness, nausea, abdominal pain. On exam patient is obese, no apparent distress, normocephalic atraumatic, EOMI, normal breath sounds, clear to auscultation, S1-S2, +murmur, bilateral lower extremity edema, abdomen soft, nontender, normal bowel sounds, alert, awake, oriented, grossly no focal deficits. Colon cancer S/P laparoscopic resection, umbilical hernia repair. Doing well postoperatively. Postoperative ileus resolved. Tolerating diet. On Augmentin for wound drainage. Would culture growing staph species. May need to adjust antibiotics based on cultures. Continue Lasix to help with volume status. Monitor volume status closely. Continue metoprolol for paroxysmal A. fib. SHERRI resolved. Monitor renal function. Case management to help with discharge planning. I personally reviewed the record. Patient is interviewed and examined at bedside. Patient's care is coordinated with Faye boogie NP. Please refer to the documentation above for details of patient's presentation and for discussion of other issues. Subjective Patient seen and examined. Follow-up for postop medical management. Patient sitting up in the chair, offers no complaints. States that his is willing to learn wound care and dressing change instructions. Denies chest pain shortness of breath. No abdominal pain or nausea. Review of Systems 2 Review of Systems: ROS per HPI, all other systems reviewed and negative Physical Exam Constitutional: WD/WN, vitals as above Respiratory: normal respiratory effort, lungs clear to auscultation Cardiovascular: Rate/Rhythm: regular rate and regular rhythm Vessels: normal peripheral pulses Extremities: no edema Gastrointestinal (Abdomen): Percussion/Palpation: abdomen soft; abdomen nontender Midline incisional dressing CDI Skin: no rashes, warm and dry Neurologic: no focal motor deficits Psychiatric: A+Ox3, euthymic affect Results & Data Results & Data ([facility]) Vital Signs (Past 12 Hours) Vital Signs Temp Pulse Resp BP Pulse Ox 11/24/21 07:29 37 C 68 16 124/69 97 Laboratory Results Short CBC 11/24/21 Range/Units 08:03 WBC 6.14 (4.8-10.8) K/uL Hgb 8.2 L (14.0-18.0) g/dL Hct 26.7 L (42-52) % Plt Count 249 (130-400) K/uL
[2021-11-25] MEDS: HEPARIN SOD 5,000 UNIT/0.5 ML VIAL SQ SCH ×3 (05:20→20:13)
[2021-11-25] MEDS: METOPROLOL TARTRATE 25 MG TAB PO SCH ×2 (09:11→20:12)
[2021-11-25] MEDS: TRIAMCINOLONE ACET 0.1% CR 15 GM TUBE TOP SCH ×2 (09:12→20:12)
[2021-11-25] MEDS: ADVANCED PROBIOTIC 1250 MG CAPSULE PO SCH (09:12)
[2021-11-25] MEDS: FUROSEMIDE 20 MG TAB PO SCH (09:12)
[2021-11-25] MEDS: INSULIN GLARGINE SOLOSTAR 100 UNITS/ML 3 ML PEN SC SCH ×2 (09:17→20:51)
[2021-11-25] MEDS: INSULIN ASPART PER UNIT SC SCH ×4 (09:18→20:51)
--- NOTE | 2021-11-25 10:15 | Surgery Progress Note ---
Date of Service November 25, 2021 Assessment & Plan (1) S/P colon resection: Plan: POD#30 packing changed home with home health in a few days Admission and Anticipated Discharge Date Admission Date: October 26, 2021 Subjective no new issues Physical Exam Gastrointestinal (Abdomen): Inspection/Auscultation: + abdominal surgical incision (granulating); abdomen not distended Results & Data ([facility]) Vital Signs (Past 12 Hours) Vital Signs Temp Pulse Resp BP Pulse Ox 11/25/21 07:15 36.7 C 68 16 130/69 96 11/24/21 22:46 36.9 C 58 L 16 131/65 96 PG Care Time/CCT Total # of Minutes Spent Total Time Spent with Patient: Total time spent is greater than 50% in coordination of care (as documented) at patient's floor/unit and/or counseling patient: Coding Level of Care Code None Diagnoses S/P colon resection Z90.49
--- NOTE | 2021-11-25 15:59 | Hospitalist Progress Note ---
Date of Service November 25, 2021 Assessment & Plan (1) Colon cancer: Plan: Colon Cancer S/P Laparoscopic Assisted Colon Resection, Umbilical Hernia Repair performed by Dr. Arnol MD on KUB XR 10/31/21 - distended air-filled loops of large and small bowel are suggestive of postoperative ileus CT A/P done on 11/03/21 showed postoperative ileus, possible post op incision site hematoma, no evidence of dehiscence Ileus resolved on 11/15/21 Completed 10 day course of Augmentin. Wound Culture growing staph species, sensitivities pending. Plan to discharge when home health arranged Needs follow up with Surgery upon discharge Paroxysmal Atrial Fibrillation Cardiology evaluated Not a candidate for anticoagulation at this time in view of recent surgery HR controlled Continue metoprolol DM type 2 Most recent hemoglobin A1c 8.7 Continue to hold PO diabetic Continue Lantus and insulin sliding scale Glycemic pharm on board for glycemic management Will need insulin dose adjusted upon discharge given less requirement while hospitalized--> discharge insulin dose adjusted SHERRI on CKD stage III -> resolved Creatinine peaked 1.9 on 11/08/2021 Creatinine 1.3 at baseline B/L LE edema Noted during admission, likely component of dependent edema, no SOB Echo 11/01/2021-EF 55 to 60%, grade 1 diastolic dysfunction, no significant valvular disease given Lasix 40mg IV x 2, improving leg edema improving Continue with Lasix 20mg po daily --> recommend discharging on Lasix 20 mg MWF --> prescription provided in discharge Anemia Likely anemia of chronic disease Hgb 8.5 11/15/2021 --> 8.2 today Recent baseline ~ 7.5-8.5 Recommend close outpatient follow-up w/ PCP for repeat labs DVT Px: SQ heparin Disposition: Per primary service. Case management working on outpatient wound care management. willing to learn wound care and dressing instructions. Admission and Anticipated Discharge Date Admission Date: October 26, 2021 Subjective Patient is seen and examined at bedside no complaints Denies chest pain, shortness of breath, dizziness, nausea, abdominal pain Review of Systems Review of Systems: All systems reviewed & are unremarkable except as noted in Subjective Physical Exam Physical Exam: Physical Exam: Vitals signs as noted above General Appearance:Obese, no apparent distress Head: normocephalic, Atraumatic Eyes: normal inspection, EOMI Neck: supple, Trachea midline Respiratory/Chest: Normal breath sounds, CTA, No accessory muscle use Cardiovascular: S1, S2, No murmur Abdomen/GI:Soft, Non tender, +Surgical site in dressing, Bowel sounds present Extremities/Musculoskeletal:normal inspection, B/L LE edema improving Neurologic/Psych:AAOX3, grossly no focal neurological deficits Skin: normal color, warm Results & Data Results & Data ([facility]) Vital Signs (Past 12 Hours) Vital Signs Temp Pulse Resp BP Pulse Ox 11/25/21 14:27 36.9 C 64 16 104/58 L 95 11/25/21 07:15 36.7 C 68 16 130/69 96
[2021-11-26] MEDS: HEPARIN SOD 5,000 UNIT/0.5 ML VIAL SQ SCH ×3 (05:10→21:49)
[2021-11-26] MEDS: METOPROLOL TARTRATE 25 MG TAB PO SCH ×2 (08:34→21:43)
[2021-11-26] MEDS: ADVANCED PROBIOTIC 1250 MG CAPSULE PO SCH (08:34)
[2021-11-26] MEDS: FUROSEMIDE 20 MG TAB PO SCH ×2 (08:35→08:44)
[2021-11-26] MEDS: INSULIN GLARGINE SOLOSTAR 100 UNITS/ML 3 ML PEN SC SCH ×2 (08:48→22:16)
[2021-11-26] MEDS: INSULIN ASPART PER UNIT SC SCH ×4 (08:49→21:41)
--- NOTE | 2021-11-26 09:41 | Surgery Progress Note ---
Date of Service November 26, 2021 Assessment & Plan (1) S/P colon resection: Plan: POD#31 Patient is doing well packing changed; wound looks well home with home health soon pt seen/examined with Dr. Ambrose Admission and Anticipated Discharge Date Admission Date: October 26, 2021 Subjective Patient offers no complaints. Physical Exam Physical Exam: awake/alert Gastrointestinal (Abdomen): Inspection/Auscultation: + abdominal surgical incision (midline packing change with dry 4x4 gauze; clean and healing well); abdomen not distended Results & Data ([facility]) Vital Signs (Past 12 Hours) Vital Signs Temp Pulse Resp BP Pulse Ox 11/26/21 07:29 36.9 C 68 18 124/70 96 11/25/21 21:40 36.9 C 59 L 16 110/66 96 PG Care Time/CCT Total # of Minutes Spent Total Time Spent with Patient: Total time spent is greater than 50% in coordination of care (as documented) at patient's floor/unit and/or counseling patient: Coding Level of Care Code None Diagnoses S/P colon resection Z90.49
[2021-11-26] MEDS ORDERED: SULFAMETHOXAZOLE/TRIMETHOPRIM DS 800/160MG TAB PO ONE (11:00)
--- NOTE | 2021-11-26 16:26 | Hospitalist Progress Note ---
Date of Service November 26, 2021 Assessment & Plan (1) Colon cancer: Plan: Colon Cancer S/P Laparoscopic Assisted Colon Resection, Umbilical Hernia Repair performed by Dr. Arnol MD on KUB XR 10/31/21 - distended air-filled loops of large and small bowel are suggestive of postoperative ileus CT A/P done on 11/03/21 showed postoperative ileus, possible post op incision site hematoma, no evidence of dehiscence Ileus resolved on 11/15/21 Completed 10 day course of Augmentin. Wound Culture growing MRSA, Group B Beta Strep Started on Bactrim Plan to discharge when home health arranged Needs follow up with Surgery upon discharge Daily dressing as per Surgery Paroxysmal Atrial Fibrillation Cardiology evaluated Not a candidate for anticoagulation at this time in view of recent surgery HR controlled Continue metoprolol DM type 2 Most recent hemoglobin A1c 8.7 Continue to hold PO diabetic Continue Lantus and insulin sliding scale Glycemic pharm on board for glycemic management Will need insulin dose adjusted upon discharge given less requirement while hospitalized--> discharge insulin dose adjusted SHERRI on CKD stage III -> resolved Creatinine peaked 1.9 on 11/08/2021 Creatinine 1.3 at baseline B/L LE edema Noted during admission, likely component of dependent edema, no SOB Echo 11/01/2021-EF 55 to 60%, grade 1 diastolic dysfunction, no significant valvular disease given Lasix 40mg IV x 2, improving leg edema improving Continue with Lasix 20mg po daily --> recommend discharging on Lasix 20 mg MWF --> prescription provided in discharge Anemia Likely anemia of chronic disease Hgb 8.5 11/15/2021 --> 8.2 today Recent baseline ~ 7.5-8.5 Recommend close outpatient follow-up w/ PCP for repeat labs DVT Px: SQ heparin Disposition: Per primary service. Case management working on outpatient wound care management. willing to learn wound care and dressing instructions. Admission and Anticipated Discharge Date Admission Date: October 26, 2021 Subjective Patient is seen and examined at bedside Abd wound dressing changed Feels well Denies chest pain, shortness of breath, dizziness, nausea, abdominal pain Afebrile Review of Systems Review of Systems: All systems reviewed & are unremarkable except as noted in Subjective Physical Exam Physical Exam: Physical Exam: Vitals signs as noted above General Appearance:Obese, no apparent distress Head: normocephalic, Atraumatic Eyes: normal inspection, EOMI Neck: supple, Trachea midline Respiratory/Chest: Normal breath sounds, CTA, No accessory muscle use Cardiovascular: S1, S2, No murmur Abdomen/GI:Soft, Non tender, +Surgical site in dressing, Bowel sounds present Extremities/Musculoskeletal:normal inspection, B/L LE edema improving Neurologic/Psych:AAOX3, grossly no focal neurological deficits Skin: normal color, warm Results & Data Results & Data ([facility]) Vital Signs (Past 12 Hours) Vital Signs Temp Pulse Resp BP Pulse Ox 11/26/21 07:29 36.9 C 68 18 124/70 96
[2021-11-26] MEDS: TRIAMCINOLONE ACET 0.1% CR 15 GM TUBE TOP SCH ×3 (17:49→21:50)
[2021-11-26] MEDS: SULFAMETHOXAZOLE/TRIMETHOPRIM DS 800/160MG TAB PO SCH (21:43)
[2021-11-27] MEDS: HEPARIN SOD 5,000 UNIT/0.5 ML VIAL SQ SCH ×2 (05:36→13:17)
[2021-11-27 08:22] LABS: Creatinine Clr Calc Pharmacy 51.1 ml/min; Est GFR (African American) 53.1 ml/min; Est GFR (Non-African American) 45.9 ml/min
[2021-11-27] MEDS: SULFAMETHOXAZOLE/TRIMETHOPRIM DS 800/160MG TAB PO SCH (08:34)
[2021-11-27] MEDS: TRIAMCINOLONE ACET 0.1% CR 15 GM TUBE TOP SCH (08:34)
[2021-11-27] MEDS: METOPROLOL TARTRATE 25 MG TAB PO SCH (08:34)
[2021-11-27] MEDS: INSULIN GLARGINE SOLOSTAR 100 UNITS/ML 3 ML PEN SC SCH (08:45)
[2021-11-27] MEDS: INSULIN ASPART PER UNIT SC SCH ×2 (08:49→12:36)
--- NOTE | 2021-11-27 09:09 | Surgery Progress Note ---
Date of Service November 27, 2021 Assessment & Plan (1) S/P colon resection: Plan: pod#32 continues to do well main issue is the complete healing of the abdominal incision which shows good granulation and could continue to heal just by changing the packing 4 x 4 gauze once a day he can shower and reapply dressing Last culture showed it to have a MRSA we have started the patient on Bactrim DS 1 twice daily The patient is to be discharged today for home care is to continue Bactrim DS we will see him in the office in 1 week he can shower let the water and soap go over the incision and reapply a 4 x 4 dressing at least once a day all question answered POD#31 Patient is doing well packing changed; wound looks well home with home health soon pt seen/examined with Dr. Ambrose Admission and Anticipated Discharge Date Admission Date: October 26, 2021 Subjective No new issues just tired of being here Physical Exam Physical Exam: Moving around without any issues not limited on activity The abdomen is completely benign The incision that was packed open has good granulation tissue minimal seepage on the 4 x 4 gauze that was placed yesterday Results & Data ([facility]) Vital Signs (Past 12 Hours) Vital Signs Temp Pulse Pulse Pulse Resp BP Pulse Ox 11/27/21 07:56 36.7 C 70 18 109/64 96 11/26/21 22:09 37.0 C 68 16 117/70 95 11/26/21 21:45 69 118/63 PG Care Time/CCT Total # of Minutes Spent Total Time Spent with Patient: Total time spent is greater than 50% in coordination of care (as documented) at patient's floor/unit and/or counseling patient: Coding Level of Care Code None Diagnoses S/P colon resection Z90.49
[2021-11-27] MEDS: FUROSEMIDE 20 MG TAB PO SCH (09:33)
[2021-11-27] MEDS: ADVANCED PROBIOTIC 1250 MG CAPSULE PO SCH (09:33)
--- NOTE | 2021-11-27 10:23 | Hospitalist Progress Note ---
Date of Service November 27, 2021 Assessment & Plan (1) Colon cancer: Plan: Colon Cancer S/P Laparoscopic Assisted Colon Resection, Umbilical Hernia Repair performed by Dr. Arnol MD on KUB XR 10/31/21 - distended air-filled loops of large and small bowel are suggestive of postoperative ileus CT A/P done on 11/03/21 showed postoperative ileus, possible post op incision site hematoma, no evidence of dehiscence Ileus resolved on 11/15/21 Completed 10 day course of Augmentin. Wound Culture growing MRSA, Group B Beta Strep Started on Bactrim Recommend 7 day course of Bactrim, repeat bmp in 1 week Recommend 7 day course of keflex 500mg bid for group B strep coverage Plan to discharge when home health arranged Needs follow up with Surgery upon discharge dressing changes as per Surgery Paroxysmal Atrial Fibrillation Cardiology evaluated Not a candidate for anticoagulation at this time in view of recent surgery HR controlled Continue metoprolol DM type 2 Most recent hemoglobin A1c 8.7 Continue to hold PO diabetic Continue Lantus and insulin sliding scale Glycemic pharm on board for glycemic management Per pharmacy recommending d/c on Lantus 25 units BID SHERRI on CKD stage III -> resolved Creatinine peaked 1.9 on 11/08/2021 Creatinine 1.5 at baseline, expected bump with starting bactrim B/L LE edema Noted during admission, likely component of dependent edema, no SOB Echo 11/01/2021-EF 55 to 60%, grade 1 diastolic dysfunction, no significant valvular disease given Lasix 40mg IV x 2, improving leg edema improving Continue with Lasix 20mg po daily --> recommend discharging on Lasix 20 mg MWF --> prescription provided in discharge Anemia Likely anemia of chronic disease Hgb 8.5 11/15/2021 --> 8.2 Recent baseline ~ 7.5-8.5 Recommend close outpatient follow-up w/ PCP for repeat labs DVT Px: SQ heparin Disposition: Per primary service. Case management working on outpatient wound care management. willing to learn wound care and dressing instructions. Plan to d/c once arranged Pt was seen and examined in collaboration with Dr. Pineda, please see addendum Admission and Anticipated Discharge Date Admission Date: October 26, 2021 Supervising Physician Co-Signing Physician Notes Patient is seen and examined at bedside. Plan to be discharged home. No compl aints. Had dressing change today. Denies any chest pain, shortness breath, dizziness, nausea, abdominal pain. On exam patient is obese, no apparent distress, normocephalic atraumatic, EOMI, normal breath sounds, clear to auscultation, S1-S2, +murmur, bilateral lower extremity edema, abdomen soft, nontender, normal bowel sounds, alert, awake, oriented, grossly no focal deficits. Colon cancer S/P laparoscopic resection, umbilical hernia repair. Wound Culture grew MRSA, group B beta strep. Patient completed 10 day Augmentin course before Cultures got finalized. Currently being discharged on Bactrim, Keflex. Continue daily wound dressings. Needs follow-up with surgery upon discharge. Also advised to follow-up with PCP upon discharge. Continue metoprolol for paroxysmal A. fib. Insulin dose adjusted based on current requirement. Needs further adjustment of insulin therapy dose with PCP as outpatient. Advised to get repeat BMP in 1 week and follow-up with PCP. I personally reviewed the record. Patient is interviewed and examined at bedside. Patient's care is coordinated with Lyndsey Souza PA-C. Please refer to the documentation above for details of patient's presentation and for discussion of other issues. Subjective Patient was seen and examined in room 377 Follow-up colon cancer status post laparoscopic resection with residual wound. He is sitting at bedside w/o concern. He wants to be discharged. Denies pain, f/c/s, chest pain, sob, n/v/d. Good appetite and passing flatus. Review of Systems Review of Systems: All systems reviewed & are unremarkable except as noted in HPI & below Physical Exam Physical Exam: Gen: WD/WN, male, sitting up in bedside chair, NAD, A&O x3 HEENT: Normocephalic, atraumatic, conjunctivae moist, sclerae anicteric, mucous membranes moist. Lung: Clear to Auscultation bilaterally, no wheezes/rales/rhonchi Heart: Regular rate, regular rhythm, 2/6 MUMTAZ noted RUSB, no rubs, or gallops Abdomen: Soft, NT, ND +BS x 4 + surg site dressing cdi Extremities: No edema Skin: Warm, no rash, negative turgor. Results & Data Results & Data ([facility]) Vital Signs (Past 12 Hours) Vital Signs Temp Pulse Resp BP Pulse Ox 03/14/22 07:56 36.7 C 70 18 109/64 96 Diagnostic Findings BMP 11/27/21 07:32 Creatinine 1.50 H Medications Administered Current Inpatient Medications Acetaminophen (Acetaminophen 325 Mg Tab) 650 mg PO Q6H PRN PRN Reason: Fever/pain Stop: 11/29/21 00:04 Last Admin: 11/06/21 10:50 Dose: 650 mg Documented by: Diphenhydramine HCl (Diphenhydramine Capsule 25 Mg Cap) 25 mg PO BID PRN PRN Reason: Itching Stop: 12/18/21 21:34 Last Admin: 11/18/21 21:58 Dose: 25 mg Documented by: Furosemide (Furosemide 20 Mg Tab) 20 mg PO QAM DEVIN Stop: 12/19/21 14:14 Last Admin: 11/27/21 09:33 Dose: 20 mg Documented by: Heparin Sodium (Beef Lung) (Heparin 10 Unit/Ml 5 Ml Flush) 5 ml FLUSH PRN PRN PRN Reason: Flush Stop: 12/06/21 12:15 Last Admin: 11/23/21 09:31 Dose: 5 ml Documented by: Heparin Sodium (Porcine) (Heparin Sod 5,000 Unit/0.5 Ml Vial) 5,000 units SQ Q8 DEVIN Stop: 12/22/21 13:59 Last Admin: 11/27/21 05:36 Dose: Not Given Documented by: Promethazine HCl 12.5 mg/ (Sodium Chloride) 50.5 mls @ 202 mls/hr IV Q6H PRN PRN Reason: Nausea And Vomiting Stop: 12/04/21 16:15 Last Infusion: 11/04/21 17:44 Dose: Infused Documented by: Dextrose (D10w) 1,000 mls @ 0 mls/hr IV .Q0M PRN PRN Reason: protocol (see label comments) Stop: 12/06/21 15:59 Insulin Aspart (Insulin Aspart Per Unit) 0 units SC ACHS [facility] Stop: 12/04/21 07:04 Last Admin: 11/27/21 08:49 Dose: 12 units Documented by: Insulin Glargine (Insulin Glargine Solostar 100 Units/Ml 3 Ml Pen) 20 units SC BID DEVIN Stop: 12/10/21 08:59 Last Admin: 11/27/21 08:45 Dose: 20 units Documented by: Lactobacillus Acidophilus (Advanced Probiotic 1250 Mg Capsule) 2 cap PO DAILY [facility] Stop: 12/11/21 15:44 Last Admin: 11/27/21 09:33 Dose: 2 cap Documented by: Metoprolol Tartrate (Metoprolol Tartrate 25 Mg Tab) 25 mg PO BID [facility] Stop: 12/01/21 20:59 Last Admin: 11/27/21 08:34 Dose: 25 mg Documented by: Triamcinolone Acetonide (Triamcinolone Acet 0.1% Cr 15 Gm Tube) 1 appln TOP BID [facility] Stop: 12/19/21 21:14 Last Admin: 11/27/21 08:34 Dose: 1 appln Documented by: Trimethoprim/Sulfamethoxazole (Sulfamethoxazole/Trimethoprim Ds 800/160mg Tab) 1 tab PO Q12 [facility]; Protocol Stop: 12/03/21 20:59 Last Admin: 11/27/21 08:34 Dose: 1 tab Documented by:
--- NOTE | 2021-12-04 10:58 | Discharge Summary ---
Date of Service November 27, 2021 Principal Diagnosis Colon cancer Postoperative ileus Paroxysmal atrial fibrillation HTN DM II CRI Anemia Discharge Exam Constitutional WD/WN, vitals as above Respiratory normal respiratory effort, lungs clear to auscultation Cardiovascular RRR, no murmur, no edema Gastrointestinal (Abdomen) Inspection/Auscultation: + abdominal surgical incision (mid wound pen with packing in place); abdomen not distended Discharge Data Allergies Allergy/AdvReac Type Severity Reaction Status Date / Time Iodinated Contrast Media Allergy Unknown Vomiting Verified 10/26/21 05:41 Consultations 10/26/21 17:55 Consult Hospitalist Routine 11/01/21 06:32 Consult Cardiology Routine Procedures Performed Operation Date: 10/26/21 07:00 Actual Procedures p Laparoscopic Assisted Right Colon Resection, Umbilical Hernia Repair(Not Applicable) - Singh Ambrose MD, FACS Ordered Studies 11/03/21 09:03 CT abd pelvis wo con Urgent Hospital Course (1) Colon cancer: 71 y/o male with mass of hepatic flexure was taken to the operating room for right hemicolectomy. He was transferred to PCU for monitoring and hospitalist consulted routinely given his medical history including HTN, DM II and CRI. He had some abdominal distention over the first three days and NG was left in place. Once he did begin having loose BMs the tube was removed and he was started on liquids. He did have some intermittent N/V over the next few days. He also had some paroxysmal A-fib which was treated with metoprolol by cardiology. He was making slow progress then had some wound drainage on POD [address] This showed wound hematoma and some dilated small bowel but no evidence of dehiscence. He was having more nausea and was not able to advance diet. PICC was placed for TPN. By POD 12 he was again having BMs and was able to begin advancing diet without nausea. His ileus had resolved by day 17 and plans for discharge began. He was stable for discharge by day 19 however there were issues placing him in rehab or SNF. He continued to make some progress although slowly. He had further wound drainage which was packed for a few days then opened further to facilitate dressing changes. He had been on Augmentin although once culture returned with MRSA he was switched to Bactrim. He became independent with daily activities and arrangements were made for home health to continue daily packing changes. He was stable for discharge home on POD 32. Total Time Total Time Spent Total Time Spent (In Minutes): 20 Discharge Plan Discharge Items Patient Disposition: Home - Home Health Services Reason For Visit: Colon Cancer Discharge Diagnosis: laparoscopic colon resection Activity: Per Instructions section Lifting: No more than 10 pounds Bathing Comment: may shower; no soaking in tubs/pools Exercise/Sports: Wait until after follow-up appointment Driving/Machine Use: Resume 3 days after discharge Non-emergency contact: Surgeon Call non-emergency contact if: you have any medication questions, your symptoms worsen, your pain is not controlled, your pain is worsening, your pain is concerning for you, you have a fever, your temperature is above 101.5, your wound has increased redness, your wound has increased drainage and your wound pain has increased Follow-up/Referrals: Singh Ambrose MD, FACS [Surgeon] - 12/05/21 2:25 pm (Please call to schedule follow up in clinic within 1 week) Donovan Ruvalcaba, SALES ANALYST-C [Primary Care Provider] - Diet: Low Fiber Ambulatory Orders: Basic Metabolic Panel (Routine) Timeframe: 1 Week Location: Determined by Patient Ordered By: Lizbet Marti Complete Blood Count with Diff (Routine) Timeframe: 1 Week Location: Determined by Patient Ordered By: Lizbet Marti Addtl Attending Provider Instructions: Please change midline wound packing once daily and as needed with dry 4x4 gauze, cover with dry 4x4 gauze, and medipore tape. Please note the following changes to your Insulin regimen: Lantus 25 units twice daily, in addition to resuming your home oral insulin medications Your home Lisinopril dose has been decreased to 5mg daily. You have also started a new medication called Metoprolol for heart rate control - You should follow up with a Foot And Ankle Surgeon as an outpatient after discharge within the next couple of weeks. Call the office at [phone] to set up an appointment. You were started on low dose Lasix (water pill) to help with leg swelling. Take Lasix 20mg on Saturday, Saturday, and Saturday You were also mildly anemic during your hospitalization, please have your PCP recheck your blood-work for a CBC in addition to a BMP to check your creatinine as it may be affected by some of your antibiotics. Please complete the full course of antibiotics prescribed to you for cultures that are growing out of your wound Please continue on a low fiber diet until you are seen in clinic by Dr. Ambrose Pending Studies at Discharge: Yes Studies:: surgical pathology Stand-Alone Forms: My [facility] Medications and DC Order Prescriptions: New metoprolol tartrate 25 mg Tablet 25 mg PO BID Qty: 60 RF: 0 acetaminophen 325 mg Tablet 650 mg PO Q6H PRN (Reason: mild pain) Qty: 30 RF: 0 furosemide 20 mg Tablet 20 mg PO .MWF Qty: 20 RF: 0 lisinopril 5 mg tablet 5 mg PO DAILY Qty: 30 RF: 0 Continued alogliptin 12.5 mg tablet 12.5 mg PO QAM RF: 0 cholecalciferol (vitamin D3) 25 mcg (1,000 unit) capsule 25 mcg PO QAM RF: 0 glucose 4 gram tablet,chewable 4 g PO Q15M PRN (Reason: Hypoglycemia) RF: 0 triamcinolone acetonide 0.1 % cream 1 applic topical BID Qty: 454 RF: 0 allopurinol 100 mg tablet 100 mg PO QAM RF: 0 metformin 1,000 mg tablet 1,000 mg PO BID RF: 0 aspirin [Adult Low Dose Aspirin] 81 mg tablet,delayed release (DR/EC) 81 mg PO QAM RF: 0 albuterol sulfate 90 mcg/actuation HFA aerosol inhaler 1 puffs INH TID PRN (Reason: shortness of breath or wheezing) RF: 0 empagliflozin 25 mg Tablet 25 mg PO QAM RF: 0 mirtazapine 15 mg tablet 15 mg PO HS RF: 0 simvastatin 80 mg Tablet 40 mg PO HS RF: 0 Changed insulin glargine 100 unit/mL solution 25 unit SQ QAM Qty: 10 RF: 0 insulin glargine 100 unit/mL Solution 25 unit SUBCUT PM 30 Days Qty: 10 RF: 0 Discontinued docusate sodium 100 mg capsule 100 mg PO QAM RF: 0 metronidazole 500 mg tablet 500 mg PO .COMPLEX Qty: 3 RF: 0 neomycin 500 mg tablet 1 g PO .COMPLEX Qty: 6 RF: 0 lisinopril 10 mg tablet 10 mg PO QAM RF: 0 Discharge Orders: Discharge Order (Routine); Ordered 11/27/21 Ordered By: Lizbet Patterson/Other Patient Handouts: Low-Fiber Diet, Managing Type 2 Diabetes Admission Data Admit Date/Time: 10/26/21 11:40 Attending Provider: Singh Ambrose Admit Provider: Singh Ambrose Primary Care Provider: Donovan Ruvalcaba Other Providers: [facility] ; [facility] ; Rustam Chavez ; Chris Hillman ; Luisito Do ; Armand Yu ; Angel Michelle ; Galo Jacobs ; Elder Mendez ; Rubi Shafer ; Lorenza Parnell ; Kayla Rogers ; Derrick Mina ; Radha Gonzales ; [place] [place] ; [facility] ; Lyndsey Souza ; Gael Pineda ; [place] Other Interventions: Discharge Summary Assessment (RN) Last Done: 11/27/21 12:55 Coding Level of Care Code D/C DAY MANAGEMENT <30 MINS Diagnoses Colon cancer C18.9
== END 2021-11-27 14:49 | disposition home health service (06) | DRG 330 ==
LOC: ASU 05:12 → PACUINP 11:40 → 2S 17:41 → 3N 11-14 18:46

== ENCOUNTER 2023-05-18 13:21 | Inpatient (IN) ==
[2023-05-18] MEDS ORDERED: ATROPINE SULFATE 0.1 MG/ML 10ML SYR IV STA (13:40)
[2023-05-18] MEDS: SODIUM CHLORIDE 0.9% 1,000 ML IV SCH (13:48)
[2023-05-18 14:00] LABS: Basophils # (auto) 0.07 K/uL (0.00-0.20); Basophils % (auto) 1.2 %; Eosinophils # (auto) 0.28 K/uL (0.00-0.50); Eosinophils % (auto) 4.9 %; Hematocrit (blood only) 34.2 % (42.0-52.0); Hemoglobin 10.7 g/dl (14.0-18.0); Immature Granulocytes # (auto) 0.02 K/uL (0.01-0.20); Immature Granulocytes % (auto) 0.4 %; Lymphocytes # (auto) 1.05 K/uL (1.20-3.40); Lymphocytes % (auto) 18.4 %; Mean Corpuscular Hemoglobin 27.9 pg (25.0-34.0); Mean Corpuscular Hgb Conc 31.3 g/dL (32.0-36.0); Mean Corpuscular Volume 89.3 fL (80.0-100.0); Mean Platelet Volume 10.3 fL (9.4-12.4); Monocytes # (auto) 0.35 K/uL (0.11-0.59); Monocytes % (auto) 6.1 %; Neutrophils # (auto) 3.93 K/uL (1.40-6.50); Platelet Count 150 K/uL (130-400); RDW Coefficient of Variation 17.4 % (11.5-14.5); RDW Standard Deviation 57.1 fL (36.4-46.3); Red Blood Count 3.83 M/uL (4.70-6.10)
[2023-05-18 14:12] LABS: INR 1.1 (0.9-1.1); Partial Thromboplastin Time 26.9 Seconds (21.0-31.0); Prothrombin Time 11.7 Seconds (9.0-12.0)
[2023-05-18 14:18] LABS: Albumin Level 3.8 gm/dl (3.4-5.0); Bilirubin,Total 1.9 mg/dl (0.2-1.0); Calcium 8.7 mg/dl (8.6-10.3); Potassium 5.1 mmol/L (3.5-5.1)
--- NOTE | 2023-05-18 14:19 | XRay Report ---
XR chest 1V portable CLINICAL HISTORY: bradycardia TECHNIQUE: Single frontal radiograph of the chest was obtained. Comparison: Comparison is made to chest radiograph 10/16/2022 FINDINGS: Left shoulder tendon anchors are seen. Cardiomegaly is noted. The lungs are clear. No evidence of ple ural effusion or pneumothorax. IMPRESSION: No acute chest disease. Cardiomegaly is noted. ACT 112: Negative or not required by law. Electronically signed by: Russ Cerrato M.D. 05/18/2023 2:18 PM
[2023-05-18] MEDS ORDERED: SODIUM CHLORIDE 0.9% 500 ML IV ONE (14:28)
[2023-05-18 14:31] LABS: Albumin Globulin Ratio 1.3 (0.9-2); Est GFR (African American) 50.8 ml/min; Est GFR (Non-African American) 43.8 ml/min; Globulin 2.9 gm/dl (2.5-4.0); Total Protein 6.7 gm/dl (6.0-8.3); Troponin I High Sensitivity 9.6 pg/ml (0-20)
[2023-05-18] MEDS ORDERED: NovoLIN-R INSULIN PER UNIT CHARGE SC STA (14:43)
[2023-05-18] MEDS ORDERED: GLUCOSE 40% GEL 15 GM TUBE PO PRN (15:12)
[2023-05-18] MEDS ORDERED: CARBOHYDRATES FOR HYPOGLYCEMIA PO PRN (15:12)
[2023-05-18] MEDS ORDERED: DEXTROSE 50% 50 ML SYRINGE IV PRN (15:12)
[2023-05-18] MEDS ORDERED: GLUCOSE 10 TAB/TUBE PO PRN (15:12)
[2023-05-18] MEDS ORDERED: GLUCAGON FOR INJ 1 MG VIAL SQ PRN (15:12)
[2023-05-18] MEDS ORDERED: PHARMACY GLYCEMIC MGMT CONSULT PRN (15:12)
[2023-05-18] MEDS ORDERED: MAGNESIUM HYDROXIDE SUSP 30 ML UDC PO PRN (15:15)
[2023-05-18] MEDS ORDERED: ALUMINUM/MAGNESIUM SUSP 30 ML UDC PO PRN (15:15)
[2023-05-18] MEDS ORDERED: ACETAMINOPHEN 325 MG TAB PO PRN (15:15)
--- NOTE | 2023-05-18 15:20 | History & Physical Report ---
Date of Service May 18, 2023 Assessment & Plan (1) Symptomatic bradycardia: Plan Symptomatic bradycardia Dizziness Patient presents with dizziness, found to have heart rate in 30s and in A-fib, converted to sinus rhythm after a dose of atropine in the ED. Vitals currently stable, will get orthostatic vitals. Troponin 9.6. EKG with sinus rhythm with heart rate 66, first-degree AV block. Ortho vitals, fall precaution. ECHO. Telemetry monitoring, cardiology consult. Pacer pads. Hold home nadolol. Chronic elevation of LFT: OP chart review w/ chronic elevation of LFT. Likely secondary to heavy alcohol use in the past. Monitor. Patient denies use of alcohol in the last 3 years. T2DM complicated with polyneuropathy: Blood glucose elevated at presentation, get A1c in AM. Sliding scale insulin, glycemic pharmacy consult. Other chronic medical conditions: HTN, HLD, CKD stage III, MDD, panic disorder ----continue with/resume home meds as and when able. DVT prophylaxis: Heparin subcu DNR/DNI History of Present Illness Chief Complaint: Dizziness Primary Care Provider: WYATT OvallesC 73-year-old male with PMH of T2DM complicated with diabetic polyneuropathy, HLD, CKD stage III, MDD, panic disorder, CRC s/p resection [per patient] presented to the ED 05/18 with complaint of lightheadedness and weakness. Patient was visiting his who is here in the hospital, after getting out of the car he felt dizzy and lightheaded and needed to be wheelchaired. He continued to feel lightheaded and weak despite being on wheelchair and hence he was directed towards ED. He denies any changes in his appetite/bowel or bladder habits/any new complaints of cough/fever/chest pain/palpitations/sore throat/belly pain. Denies any febrile illness or flulike illness. Patient does report having similar lightheadedness and dizziness episodes few weeks ago at restaurant where he lost consciousness briefly but again then got better and did not seek any medical attention. He reports his lightheadedness has been getting worse lately. Per discussion with ER physician, in the ED patient with heart rate in 30s in A- fib/received a dose of atropine at 0.5 Mg/converted to sinus rhythm with heart rate in 50s to 60s. At bedside exam, patient reports feeling fine and back to his baseline. Denies any chest pain or palpitation or funny sensation or discomfort in the chest. Patient denies smoking tobacco/reports quitting alcohol 3 years ago/denies recreational drug use. CODE STATUSDNR/DNI as per my discussion with the patient. Medications reviewed with the patientpatient does not know much of his medication, hence medication review based on outpatient chart review. Plan of care discussed with the patient. We will continue with the pacer pads put in ED, monitor him in PCU telemetry, consult cardiology, fall precaution. Allergies Allergy/AdvReac Type Severity Reaction Status Date / Time Iodinated Contrast Media AdvReac Intermediate Vomiting Verified 05/18/23 15:41 Home Medications Medication Instructions Recorded Confirmed Type albuterol sulfate 90 mcg/actuation 2 puffs inhalation TID PRN 06/24/19 05/18/23 History aerosol inhaler shortness of breath or wheezing allopurinol 100 mg tablet 100 mg PO QAM 06/24/19 05/18/23 History aspirin 81 mg tablet,delayed 81 mg PO QAM 06/24/19 05/18/23 History release (Adult Low Dose Aspirin) metformin 1,000 mg tablet 1,000 mg PO BID 06/24/19 05/18/23 History cholecalciferol (vitamin D3) 25 25 mcg PO QAM 09/27/21 05/18/23 History mcg (1,000 unit) capsule empagliflozin 25 mg tablet 25 mg PO QAM 10/19/21 05/18/23 History simvastatin 80 mg tablet 40 mg PO HS 10/19/21 05/18/23 History acetaminophen 325 mg tablet 650 mg PO Q6H PRN mild pain #30 11/14/21 05/18/23 Rx tabs semaglutide 1 mg/dose (4 mg/3 mL) 1 mg subcut WK 04/17/22 05/18/23 History subcutaneous pen injector (Ozempic) ascorbic acid (vitamin C) 500 mg 250 mg PO DAILY 10/16/22 05/18/23 History tablet,extended release (Vitamin C ER) ferrous sulfate 325 mg (65 mg 325 mg PO BID 10/16/22 05/18/23 History iron) tablet folic acid 1 mg tablet 1 mg PO DAILY 10/16/22 05/18/23 History hydroxyzine HCl 25 mg tablet 25 mg PO HS PRN Itching 10/16/22 05/18/23 History insulin glargine 100 unit/mL 48 unit subcut BID 10/16/22 05/18/23 History subcutaneous solution nadolol 20 mg tablet 20 mg PO AMPM 05/18/23 05/18/23 History pantoprazole 40 mg tablet,delayed 40 mg PO DAILY 05/18/23 05/18/23 History release Past Med/Surg History Medical History (Updated 05/18/23 @ 15:41 by Britany Abbasi MD) Anemia BMI 34.0-34.9,adult Cancer COLON-REASON FOR SURGERY Chronic obstructive pulmonary disease LAST INHALER USE LAST WEEK CKD (chronic kidney disease) stage 3, GFR 30-59 ml/min Diabetes mellitus Dyslipidemia History of kidney stones History of pulmonary embolus (PE) REMOTE HX / LEG IN A A CAST - NO PROBLEMS SINCE Hypertension Neuropathy Obesity Sleep apnea CPAP/DOESN'T USE SOB (shortness of breath) on exertion 1 FLIGHT-"OUT OF SHAPE" Surgical History (Updated 03/21/23 @ 12:20 by Blanka Thayer RN) History of cholecystectomy History of colonoscopy 2017, 2020 History of esophagogastroduodenoscopy (EGD) (02/19/23) Dr. Baker History of total right knee replacement Hx of foot surgery LEFT HEEL Hx of repair of rotator cuff R&L S/P colon resection (10/26/21) Laparoscopic Assisted Right Colon Resection, Umbilical Hernia Repair- Singh Ambrose MD, FACS 10/26/2021 Status post laser lithotripsy of ureteral calculus 12/18/19 Family History Grandmother Diabetes Mother Breast cancer Sister Breast cancer Social History Smoking Status: Never smoker packs per day: 1; Second Hand Exposure: No; Do You Dip or Chew Tobacco: No; Hx Alcohol Use: No Hx Substance Use: No Preferred Language: Sinhala Communication Ability: Effective 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 Physical Exam Physical Exam: GENERAL: Alert and oriented x3. NAD, on RA. HEENT: No pallor, no icterus. Pupils equal, round and reactive to light. Oral mucosa moist. NECK: No JVD, no neck masses. HEART: S1 and S2 heard. Regular rate and rhythm. No murmur, no gallop. RESPIRATORY SYSTEM: Normal AP diameter. No accessory muscle use. No wheezing, no crackles. ABDOMEN: Soft, bowel sounds present, nontender, no distention. Old healed surgical midline scar. CENTRAL NERVOUS SYSTEM: No facial droop. Speech is clear. Obeys simple commands. Moves extremities. EXTREMITIES: No edema, no erythema seen. Results & Data Results & Data Vital Signs (Past 12 Hours) Vital Signs Temp Pulse Pulse Resp BP BP Pulse Ox 05/18/23 14:26 63 19 95 05/18/23 14:26 115/62 05/18/23 14:20 67 19 05/18/23 14:10 66 23 95 05/18/23 14:27 115/62 05/18/23 14:00 50 L 19 95 05/18/23 13:50 33 L 22 95 05/18/23 13:49 28 L 18 05/18/23 13:49 112/55 L 05/18/23 13:40 29 L 15 05/18/23 13:38 29 L 15 05/18/23 13:49 37 L 05/18/23 13:51 95 05/18/23 13:51 95 05/18/23 13:30 29 L 05/18/23 13:25 36.6 C 44 L 16 108/67 96 O2 Del Method 05/18/23 14:26 05/18/23 14:26 05/18/23 14:20 05/18/23 14:10 05/18/23 14:27 05/18/23 14:00 05/18/23 13:50 05/18/23 13:49 05/18/23 13:49 05/18/23 13:40 05/18/23 13:38 05/18/23 13:49 05/18/23 13:51 Room Air 05/18/23 13:51 Room Air 05/18/23 13:30 05/18/23 13:25 Room Air Code Status & VTE Plan VTE Prophylaxis Plan VTE Prophylaxis will be ordered: Yes
[2023-05-18 15:21] LABS: Lyme Ab IgG w/WB Rflx Negative (Negative); Lyme Ab IgM w/WB Rflx Negative (Negative)
[2023-05-18] MEDS ORDERED: ALBUTEROL HFA 8 GM INHALER INH PRN (15:42)
--- NOTE | 2023-05-18 16:25 | Emergency Department Note ---
Impression & Plan Symptomatic bradycardia, Near syncope, Atrial fibrillation with slow ventricular response ED Provider Note CHIEF COMPLAINT: Near syncope HISTORY OF PRESENT ILLNESS: This 73-year-old male patient with past medical history of postsurgical atrial fibrillation, hypomagnesemia, partial colectomy due to colon cancer ureteral calculi, presents to the emergency department with complaints of a near syncopal event while visiting his who is an inpatient at our facility. Patient states this happened to him several weeks ago while he was at a restaurant eating dinner but he was "out and back" quickly. He did not seek medical attention at that time. The patient states he follows with sloane watters cardiology at [facility] however there are notes from [facility] physician group cardiology as well. Nonetheless the patient did have an episode of atrial fibrillation post surgery, he does not have any recall of that situation. The patient is currently taking nadolol prescribed by [facility] gastroenterology for esophageal varices. REVIEW OF SYSTEMS: A review of systems was performed with positives and pertinent negatives listed in the history of present illness. 10 systems were r eviewed and are otherwise negative. ALLERGIES: see below MEDICATIONS: see below PMH: see below SOCIAL HISTORY: see below DDx: Arrhythmia, PE, hypoglycemia, dehydration, acute kidney disease among others PHYSICAL EXAM: Vital signs reviewed. Stable blood pressure General: Well-appearing 73-year-old male, in no significant distress. HEENT: No scleral icterus, PERRLA, neck supple. Moist mucous membranes, hard of hearing. Cardiovascular: Significantly bradycardic and irregular, no extra sounds. Pulmonary: Clear to auscultation bilaterally, normal work of breathing. Abdomen: Soft, nontender, nondistended, positive bowel sounds. Musculoskeletal: Atraumatic, no peripheral edema. Neurologic: Patient awake alert and oriented x 3, speech is clear. Skin: Warm, dry, no rash EMERGENCY DEPARTMENT COURSE/MDM: IV access was obtained and laboratory work was drawn. Patient was placed on the quality assurance monitor chassis. Initially patient was in a profound bradycardic atrial fibrillation. Patient was given 0.5 mg of IV atropine and shortly thereafter was found to be in a sinus rhythm at 66 bpm with first-degree AV block. External medical records were reviewed. Patient is not aware of his medication list. He states his primary care is through the [facility] and specialty care is through [facility]. [place] records are not readily available at this time however [facility] records were reviewed. Patient was recently placed on nadolol for esophageal varices. Metoprolol is on his medication reconciliation through the hospital from previous visits. It is unclear if the patient is taking both medications. Patient's heart rate remained stable as his blood pressure. Laboratory work is fairly reassuring, including troponin, exception of an elevated glucose at 383. Patient was given 8 units of subcutaneous regular insulin. She did receive IV hydration with. Case was discussed with the hospitalist who agreed to evaluate the patient for admission and further management. MONITORING: An order for cardiac monitoring was placed and the patient is noted to be in a atrial fibrillation with bradycardia at 29 beats per minute. RADIOLOGY: Chest x-ray to my interpretation reveals no evidence of acute focal lung consolidation or failure, otherwise defer to radiology EKG: EKG #1 to my interpretation reveals profound bradycardia with first-degree AV block at 42 beats per min and PACs, left axis deviation, LVH, T wave abnormality in the lateral leads EKG #2 to my interpretation reveals a sinus rhythm with a first-degree AV block at 66 bpm. RSR prime pattern suggests right ventricular conduction delay, left anterior fascicular block, LVH, likely previous septal infarct. When compared to previous, DISPOSITION: Admission I have personally spent 40 minutes of critical care time in the direct management of this patient. This was a life/limb threatening event. This 40 minutes is in excess of all separately billable procedures. Past Med/Surg History Medical History Anemia BMI 34.0-34.9,adult Cancer COLON-REASON FOR SURGERY Chronic obstructive pulmonary disease LAST INHALER USE LAST WEEK CKD (chronic kidney disease) stage 3, GFR 30-59 ml/min Diabetes mellitus Dyslipidemia History of kidney stones History of pulmonary embolus (PE) REMOTE HX / LEG IN A A CAST - NO PROBLEMS SINCE Hypertension Neuropathy Obesity Sleep apnea CPAP/DOESN'T USE SOB (shortness of breath) on exertion 1 FLIGHT-"OUT OF SHAPE" Surgical History History of cholecystectomy History of colonoscopy 2017, 2020 History of esophagogastroduodenoscopy (EGD) (02/19/23) Dr. Baker History of total right knee replacement Hx of foot surgery LEFT HEEL Hx of repair of rotator cuff R&L S/P colon resection (10/26/21) Laparoscopic Assisted Right Colon Resection, Umbilical Hernia Repair- Singh Ambrose MD, FACS 10/26/2021 Status post laser lithotripsy of ureteral calculus 12/18/19 Family History Grandmother Diabetes Mother Breast cancer Sister Breast cancer Social History Smoking Status: Former smoker packs per day: 1; Second Hand Exposure: No; Do You Dip or Chew Tobacco: No; Hx Alcohol Use: No Hx Substance Use: No Preferred Language: Greek Communication Ability: Effective 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 Beliefs That Will Affect Care: None marital status: Current Living Situation: Spouse current occupational status: retired How many Children do You have: 1 Feels Safe at Home: Yes during the past year weight has: remained stable Assistive Devices: Cane Allergies Allergies Allergy/AdvReac Type Severity Reaction Status Date / Time Iodinated Contrast Media AdvReac Intermediate Vomiting Verified 05/18/23 15:41 Home Meds Home Medications Medication Instructions Recorded Confirmed albuterol sulfate 90 mcg/actuation 2 puffs inhalation TID PRN 06/24/19 05/18/23 aerosol inhaler shortness of breath or wheezing allopurinol 100 mg tablet 100 mg PO QAM 06/24/19 05/18/23 aspirin 81 mg tablet,delayed 81 mg PO QAM 06/24/19 05/18/23 release (Adult Low Dose Aspirin) metformin 1,000 mg tablet 1,000 mg PO BID 06/24/19 05/18/23 cholecalciferol (vitamin D3) 25 25 mcg PO QAM 09/27/21 05/18/23 mcg (1,000 unit) capsule empagliflozin 25 mg tablet 25 mg PO QAM 10/19/21 05/18/23 simvastatin 80 mg tablet 40 mg PO HS 10/19/21 05/18/23 semaglutide 1 mg/dose (4 mg/3 mL) 1 mg subcut WK 04/17/22 05/18/23 subcutaneous pen injector (Ozempic) ascorbic acid (vitamin C) 500 mg 250 mg PO DAILY 10/16/22 05/18/23 tablet,extended release (Vitamin C ER) ferrous sulfate 325 mg (65 mg 325 mg PO BID 10/16/22 05/18/23 iron) tablet folic acid 1 mg tablet 1 mg PO DAILY 10/16/22 05/18/23 hydroxyzine HCl 25 mg tablet 25 mg PO HS PRN Itching 10/16/22 05/18/23 pantoprazole 40 mg tablet,delayed 40 mg PO DAILY 05/18/23 05/18/23 release Previous Rx's Medication Instructions Recorded acetaminophen 325 mg tablet 650 mg PO Q6H PRN mild pain #30 11/14/21 tabs insulin glargine 100 unit/mL (3 60 unit (0.6 mL) subcut DAILY #15 05/22/23 mL) subcutaneous pen mL nadolol 20 mg tablet 20 mg PO DAILY #30 tabs 05/22/23 Results & Data (ED) Vital Signs Vital Signs - 24 hr 05/18/23 13:25 05/18/23 13:30 05/18/23 13:51 Temperature 36.6 C Temperature Source Temporal Artery Scan Pulse Rate 44 L Pulse Rate [Finger] 29 L Pulse Rate from SpO2 Sensor Respiratory Rate 16 Respiratory Effort / Characteristics Non-Labored Respiratory Depth Normal Blood Pressure 108/67 Blood Pressure [Right Arm] Blood Pressure Mean 80 Blood Pressure Mean [Right Arm] Pulse Oximetry 96 95 Oxygen Delivery Method Room Air Room Air Sepsis Recent Fever Within 48 Hours No Sepsis New/Unexplained Change in Mental Status No Sepsis Action Taken by Nursing No Action Required 05/18/23 13:51 05/18/23 13:49 05/18/23 13:38 Temperature Temperature Source Pulse Rate 37 L 29 L Pulse Rate [Finger] Pulse Rate from SpO2 Sensor Respiratory Rate 15 Respiratory Effort / Characteristics Respiratory Depth Blood Pressure Blood Pressure [Right Arm] Blood Pressure Mean Blood Pressure Mean [Right Arm] Pulse Oximetry 95 Oxygen Delivery Method Room Air Sepsis Recent Fever Within 48 Hours Sepsis New/Unexplained Change in Mental Status Sepsis Action Taken by Nursing 05/18/23 13:40 05/18/23 13:49 05/18/23 13:49 Temperature Temperature Source Pulse Rate 29 L 28 L Pulse Rate [Finger] Pulse Rate from SpO2 Sensor Respiratory Rate 15 18 Respiratory Effort / Characteristics Respiratory Depth Blood Pressure 112/55 L Blood Pressure [Right Arm] Blood Pressure Mean 74 Blood Pressure Mean [Right Arm] Pulse Oximetry Oxygen Delivery Method Sepsis Recent Fever Within 48 Hours Sepsis New/Unexplained Change in Mental Status Sepsis Action Taken by Nursing 05/18/23 13:50 05/18/23 14:00 05/18/23 14:27 Temperature Temperature Source Pulse Rate 33 L 50 L Pulse Rate [Finger] Pulse Rate from SpO2 Sensor 33 L 46 L Respiratory Rate 22 19 Respiratory Effort / Characteristics Respiratory Depth Blood Pressure Blood Pressure [Right Arm] 115/62 Blood Pressure Mean Blood Pressure Mean [Right Arm] 79 Pulse Oximetry 95 95 Oxygen Delivery Method Sepsis Recent Fever Within 48 Hours Sepsis New/Unexplained Change in Mental Status Sepsis Action Taken by Nursing 05/18/23 14:10 05/18/23 14:20 05/18/23 14:26 Temperature Temperature Source Pulse Rate 66 67 Pulse Rate [Finger] Pulse Rate from SpO2 Sensor 66 Respiratory Rate 23 19 Respiratory Effort / Characteristics Respiratory Depth Blood Pressure 115/62 Blood Pressure [Right Arm] Blood Pressure Mean 79 Blood Pressure Mean [Right Arm] Pulse Oximetry 95 Oxygen Delivery Method Sepsis Recent Fever Within 48 Hours Sepsis New/Unexplained Change in Mental Status Sepsis Action Taken by Nursing 05/18/23 14:26 Temperature Temperature Source Pulse Rate 63 Pulse Rate [Finger] Pulse Rate from SpO2 Sensor 62 Respiratory Rate 19 Respiratory Effort / Characteristics Respiratory Depth Blood Pressure Blood Pressure [Right Arm] Blood Pressure Mean Blood Pressure Mean [Right Arm] Pulse Oximetry 95 Oxygen Delivery Method Sepsis Recent Fever Within 48 Hours Sepsis New/Unexplained Change in Mental Status Sepsis Action Taken by [facility] Medications Current Medication List: was personally reviewed by me Laboratory Data Attestation: I reviewed the patient's lab results. 05/18/23 13:40 05/18/23 13:40 Lab Results 05/18/23 05/18/23 05/18/23 Range/Units 13:28 13:40 13:40 WBC 5.70 (4.8-10.8) K/ul RBC 3.83 L (4.70-6.10) M/uL Hgb 10.7 L (14.0-18.0) g/dl Hct 34.2 L (42.0-52.0) % MCV 89.3 (80.0-100.0) fL MCH 27.9 (25.0-34.0) pg MCHC 31.3 L (32.0-36.0) g/dL RDW Std Deviation 57.1 H (36.4-46.3) fL RDW Coeff of Rea 17.4 H (11.5-14.5) % Plt Count 150 (130-400) K/uL MPV 10.3 (9.4-12.4) fL Immature Gran % (Auto) 0.4 % Neut % (Auto) 69.0 % Lymph % (Auto) 18.4 % Rabun % (Auto) 6.1 % Eos % (Auto) 4.9 % Baso % (Auto) 1.2 % Neut # (Auto) 3.93 (1.40-6.50) K/uL Lymph # (Auto) 1.05 L (1.20-3.40) K/uL Rabun # (Auto) 0.35 (0.11-0.59) K/uL Eos # (Auto) 0.28 (0.00-0.50) K/uL Baso # (Auto) 0.07 (0.00-0.20) K/uL Immature Gran # (Auto) 0.02 (0.01-0.20) K/uL PT 11.7 (9.0-12.0) Seconds INR 1.1 (0.9-1.1) APTT 26.9 (21.0-31.0) Seconds PTT Ratio 1.0 Sodium (136-145) mmol/L Potassium (3.5-5.1) mmol/L Chloride (98-107) mmol/L Carbon Dioxide (21-32) mmol/L Anion Gap (3-11) BUN (6-23) mg/dl Creatinine (0.6-1.4) mg/dl Est Cr Clr Drug Dosing ml/min Est GFR ( Amer) ml/min Est GFR (Non-Af Amer) ml/min BUN/Creatinine Ratio (10-20) Glucose (70-99(Fasting)) mg/dl POC Glucose 386 H* (70-99) mg/dl Calcium (8.6-10.3) mg/dl Total Bilirubin (0.2-1.0) mg/dl AST (13-39) U/L ALT (7-52) U/L Alkaline Phosphatase (34-104) U/L Troponin I High Sens (0-20) pg/ml Total Protein (6.0-8.3) gm/dl Albumin (3.4-5.0) gm/dl Globulin (2.5-4.0) gm/dl Albumin/Globulin Ratio (0.9-2) Lyme Disease IgG Ab (Negative) Lyme Disease IgM Ab (Negative) 05/18/23 05/18/23 Range/Units 13:40 13:40 WBC (4.8-10.8) K/ul RBC (4.70-6.10) M/uL Hgb (14.0-18.0) g/dl Hct (42.0-52.0) % MCV (80.0-100.0) fL MCH (25.0-34.0) pg MCHC (32.0-36.0) g/dL RDW Std Deviation (36.4-46.3) fL RDW Coeff of Rea (11.5-14.5) % Plt Count (130-400) K/uL MPV (9.4-12.4) fL Immature Gran % (Auto) % Neut % (Auto) % Lymph % (Auto) % Rabun % (Auto) % Eos % (Auto) % Baso % (Auto) % Neut # (Auto) (1.40-6.50) K/uL Lymph # (Auto) (1.20-3.40) K/uL Rabun # (Auto) (0.11-0.59) K/uL Eos # (Auto) (0.00-0.50) K/uL Baso # (Auto) (0.00-0.20) K/uL Immature Gran # (Auto) (0.01-0.20) K/uL PT (9.0-12.0) Seconds INR (0.9-1.1) APTT (21.0-31.0) Seconds PTT Ratio Sodium 134 L (136-145) mmol/L Potassium 5.1 (3.5-5.1) mmol/L Chloride 103 (98-107) mmol/L Carbon Dioxide 23 (21-32) mmol/L Anion Gap 8 (3-11) BUN 17 (6-23) mg/dl Creatinine 1.54 H (0.6-1.4) mg/dl Est Cr Clr Drug Dosing 49.0 ml/min Est GFR ( Amer) 50.8 ml/min Est GFR (Non-Af Amer) 43.8 ml/min BUN/Creatinine Ratio 11.0 (10-20) Glucose 383 H* (70-99(Fasting)) mg/dl POC Glucose (70-99) mg/dl Calcium 8.7 (8.6-10.3) mg/dl Total Bilirubin 1.9 H (0.2-1.0) mg/dl AST 50 H (13-39) U/L ALT 32 (7-52) U/L Alkaline Phosphatase 207 H (34-104) U/L Troponin I High Sens 9.6 (0-20) pg/ml Total Protein 6.7 (6.0-8.3) gm/dl Albumin 3.8 (3.4-5.0) gm/dl Globulin 2.9 (2.5-4.0) gm/dl Albumin/Globulin Ratio 1.3 (0.9-2) Lyme Disease IgG Ab Negative (Negative) Lyme Disease IgM Ab Negative (Negative) Administered Medications Discontinued Medications Allopurinol (Allopurinol 100 Mg Tab) 100 mg PO [facility] Stop: 06/18/23 08:59 Last Admin: 05/22/23 08:31 Dose: 100 mg Documented By: Admin: 05/21/23 09:54 Dose: 100 mg Documented By: Admin: 05/20/23 08:45 Dose: 100 mg Documented By: Admin: 05/19/23 08:55 Dose: 100 mg Documented By: LI Aspirin (Aspirin 81 Mg Ectab) 81 mg PO [facility] Stop: 06/18/23 08:59 Last Admin: 05/22/23 08:31 Dose: 81 mg Documented By: Admin: 05/21/23 09:53 Dose: 81 mg Documented By: Admin: 05/20/23 08:45 Dose: 81 mg Documented By: Admin: 05/19/23 08:55 Dose: 81 mg Documented By: LI Atropine Sulfate (Atropine Sulfate 0.1 Mg/Ml 10ml Syr) 0.5 mg IV NOW STA Stop: 05/18/23 13:41 Last Admin: 05/18/23 13:45 Dose: 0.5 mg Documented By: AM Bupivacaine HCl (Bupivacaine 0.25% Pf 30 Ml Vial) Confirm Administered Dose 30 ml .ROUTE .STK-MED ONE Stop: 05/21/23 06:59 Last Admin: 05/21/23 09:37 Dose: Not Given Documented By: ROBERT Cefazolin Sodium (Cefazolin 330 Mg/Ml 1 Gm Vial) Confirm Administered Dose 1,980 mg .ROUTE .STCranberry Chic-MED ONE Stop: 05/21/23 07:51 Last Admin: 05/21/23 08:06 Dose: 1,980 mg Documented By: NAVYA Diphenhydramine HCl (Diphenhydramine 50 Mg/Ml Vial) Confirm Administered Dose 50 mg .ROUTE .STCranberry Chic-MED ONE Stop: 05/21/23 07:50 Last Admin: 05/21/23 08:06 Dose: 25 mg Documented By: NAVYA Fentanyl Citrate (Fentanyl Citrate Pf 100 Mcg/2 Ml Vial) Confirm Administered Dose 100 mcg .ROUTE .STCranberry Chic-MED ONE Stop: 05/21/23 07:51 Last Admin: 05/21/23 08:51 Dose: 100 mcg Documented By: NAVYA Ferrous Sulfate (Ferrous Sulfate 325 Mg Tab) 325 mg PO BID [facility] Stop: 06/17/23 20:59 Last Admin: 05/22/23 08:31 Dose: 325 mg Documented By: Admin: 05/21/23 20:47 Dose: 325 mg Documented By: Admin: 05/21/23 09:53 Dose: 325 mg Documented By: Admin: 05/20/23 20:15 Dose: 325 mg Documented By: Admin: 05/20/23 08:45 Dose: 325 mg Documented By: Admin: 05/19/23 21:28 Dose: 325 mg Documented By: Admin: 05/19/23 08:56 Dose: 325 mg Documented By: Admin: 05/18/23 21:00 Dose: 325 mg Documented By: JONATHAN Folic Acid (Folic Acid 1 Mg Tab) 1 mg PO DAILY [facility] Stop: 06/18/23 08:59 Last Admin: 05/22/23 08:31 Dose: 1 mg Documented By: Admin: 05/21/23 09:54 Dose: 1 mg Documented By: Admin: 05/20/23 08:45 Dose: 1 mg Documented By: Admin: 05/19/23 08:56 Dose: 1 mg Documented By: LI Sodium Chloride (Nss 1000ml) 1,000 mls @ 70 mls/hr IV .[id number] [facility] Stop: 05/19/23 16:47 Last Infusion: 05/19/23 16:55 Dose: 0 mls/hr Documented By: Admin: 05/19/23 04:40 Dose: 70 mls/hr Documented By: Infusion: 05/18/23 14:56 Dose: 0 mls/hr Documented By: Admin: 05/18/23 13:48 Dose: 125 mls/hr Documented By: AM Sodium Chloride (Nss 1000ml) 500 mls @ 999 mls/hr IV .Q31M ONE Stop: 05/18/23 14:58 Last Infusion: 05/18/23 16:10 Dose: 0 mls/hr Documented By: Admin: 05/18/23 14:36 Dose: 999 mls/hr Documented By: CRISTINE Insulin Human Regular 5 units/ (Syringe) 5 mls @ 5 mls/min IV ONE STA Stop: 05/21/23 20:22 Last Admin: 05/21/23 20:39 Dose: 5 mls/min Documented By: QUINTIN Co-signed By: GALDINO Insulin Aspart (Insulin Aspart Per Unit Charge) 0 units SC ACHS [facility] Stop: 06/17/23 16:29 Last Admin: 05/22/23 12:34 Dose: 31 units Documented By: JOEL Co-signed By: RIO Admin: 05/22/23 08:35 Dose: 18 units Documented By: JOEL Co-signed By: ANGELA Admin: 05/21/23 21:49 Dose: 30 units Documented By: QUINTIN Co-signed By: GALDINO Admin: 05/21/23 17:38 Dose: 32 units Documented By: ROBERT Co-signed By: JOEL Admin: 05/21/23 12:44 Dose: 24 units Documented By: ROBERT Co-signed By: JOEL Admin: 05/21/23 09:51 Dose: 12 units Documented By: ROBERT Co-signed By: RIO Admin: 05/20/23 21:06 Dose: 2 units Documented By: EMILY Co-signed By: MAYTE Admin: 05/20/23 17:50 Dose: 16 units Documented By: JOEL Co-signed By: YUVAL Admin: 05/20/23 12:47 Dose: 16 units Documented By: JOEL Co-signed By: YUVAL Admin: 05/20/23 08:50 Dose: 10 units Documented By: JOEL Co-signed By: YUVAL Admin: 05/19/23 21:28 Dose: 1 units Documented By: KARRI Co-signed By: MAYTE Admin: 05/19/23 17:35 Dose: 10 units Documented By: LI Co-signed By: MONET Admin: 05/19/23 13:18 Dose: 12 units Documented By: LI Co-signed By: MONET Admin: 05/19/23 08:55 Dose: 7 units Documented By: LI Co-signed By: JOSE Admin: 05/18/23 21:01 Dose: 3 units Documented By: JONATHAN Co-signed By: MAYTE Admin: 05/18/23 16:39 Dose: 6 units Documented By: ASIF Co-signed By: VIRAJ Insulin Aspart (Insulin Aspart Per Unit Charge) 0 units SC 0000,0400 [facility] Stop: 05/19/23 04:01 Last Admin: 05/19/23 04:40 Dose: 3 units Documented By: JONATHAN Co-signed By: MAYTE Admin: 05/18/23 23:51 Dose: Not Given Documented By: JONATHAN Insulin Aspart (Insulin Aspart Per Unit Charge) 0 units SC 0200 [facility] Stop: 05/22/23 02:01 Last Admin: 05/22/23 02:26 Dose: 5 units Documented By: QUINTIN Co-signed By: GALDINO Insulin Glargine (Lantus Per Unit Charge) 30 units SQ BID [facility] Stop: 05/18/23 23:59 Last Admin: 05/18/23 21:01 Dose: 30 units Documented By: JONATHAN Co-signed By: MAYTE Insulin Glargine (Lantus Per Unit Charge) 20 units SQ BID [facility] Stop: 06/18/23 08:59 Last Admin: 05/20/23 08:50 Dose: 20 units Documented By: JOEL Co-signed By: YUVAL Admin: 05/19/23 21:27 Dose: 20 units Documented By: KARRI Co-signed By: MAYTE Admin: 05/19/23 08:56 Dose: 20 units Documented By: LI Co-signed By: JOSE Insulin Glargine (Lantus Per Unit Charge) 0 units SQ BID [facility]; Protocol Stop: 05/20/23 21:01 Last Admin: 05/20/23 21:05 Dose: 25 units Documented By: EMILY Co-signed By: MAYTE Insulin Glargine (Lantus Per Unit Charge) 20 units SC TODAY@0900 [facility] Stop: 05/21/23 09:01 Last Admin: 05/21/23 09:53 Dose: 20 units Documented By: ROBERT Co-signed By: RIO Insulin Glargine (Lantus Per Unit Charge) 35 units SC HS [facility] Stop: 06/20/23 20:59 Last Admin: 05/21/23 21:48 Dose: 35 units Documented By: QUINTIN Co-signed By: GALDINO Insulin Glargine (Lantus Per Unit Charge) 55 units SC TODAY@1230 [facility] Stop: 05/22/23 12:31 Last Admin: 05/22/23 14:46 Dose: 55 units Documented By: JOEL Co-signed By: RIO Insulin Human Regular (Novolin-R Insulin Per Unit Charge) 8 units SC [facility] Stop: 05/18/23 14:44 Last Admin: 05/18/23 21:37 Dose: Not Given Documented By: JONATHAN Lidocaine HCl (Lidocaine 1% Local 20 Ml Vial) Confirm Administered Dose 40 ml .ROUTE .STK-MED ONE Stop: 05/21/23 06:58 Last Admin: 05/21/23 09:36 Dose: Not Given Documented By: ROBERT Methylprednisolone (Methylprednisolone 125 Mg/2 Ml Vial) Confirm Administered Dose 125 mg .ROUTE .STK-MED ONE Stop: 05/21/23 07:50 Last Admin: 05/21/23 08:06 Dose: 125 mg Documented By: NAVYA Midazolam HCl (Midazolam Hcl 5 Mg/Ml 1 Ml Vial) Confirm Administered Dose 5 mg .ROUTE .STK-MED ONE Stop: 05/21/23 07:51 Last Admin: 05/21/23 08:51 Dose: 5 mg Documented By: NAVYA Nadolol (Nadolol 40 Mg Tab) 20 mg PO QAM [facility] Stop: 06/20/23 11:29 Last Admin: 05/22/23 08:31 Dose: 20 mg Documented By: Admin: 05/21/23 12:48 Dose: 20 mg Documented By: ROBERT Ondansetron HCl (Ondansetron Inj 2 Mg/Ml 2 Ml Vial) Confirm Administered Dose 4 mg .ROUTE .STK-MED ONE Stop: 05/21/23 08:01 Last Admin: 05/21/23 08:06 Dose: 4 mg Documented By: NAVYA Pantoprazole Sodium (Pantoprazole 40 Mg Tab) 40 mg PO DAILY [facility] Stop: 06/18/23 08:59 Last Admin: 05/22/23 08:31 Dose: 40 mg Documented By: Admin: 05/21/23 09:54 Dose: 40 mg Documented By: Admin: 05/20/23 08:45 Dose: 40 mg Documented By: Admin: 05/19/23 08:56 Dose: 40 mg Documented By: LI Simvastatin (Simvastatin 40 Mg Tab) 40 mg PO [facility] Stop: 06/17/23 20:59 Last Admin: 05/21/23 20:47 Dose: 40 mg Documented By: Admin: 05/20/23 20:15 Dose: 40 mg Documented By: Admin: 05/19/23 21:28 Dose: 40 mg Documented By: Admin: 05/18/23 21:00 Dose: 40 mg Documented By: JONATHAN Sterile Water (Water, Sterile For Inj 10 Ml Vial) Confirm Administered Dose 10 ml .ROUTE .STK-MED ONE Stop: 05/21/23 06:58 Last Admin: 05/21/23 09:36 Dose: Not Given Documented By: ROBERT Vancomycin HCl (Vancomycin Hcl 1000mg/20ml Vial) Confirm Administered Dose 50 mg .ROUTE .STK-MED ONE Stop: 05/21/23 06:59 Last Admin: 05/21/23 09:37 Dose: Not Given Documented By: ROBERT Vitamin D (Cholecalciferol 1,000 Units 25 Mcg Tab) 1,000 units PO [facility] Stop: 06/18/23 08:59 Last Admin: 05/22/23 14:45 Dose: 1,000 units Documented By: Admin: 05/21/23 09:54 Dose: 1,000 units Documented By: Admin: 05/20/23 08:45 Dose: 1,000 units Documented By: Admin: 05/19/23 08:56 Dose: 1,000 units Documented By: LI Imaging Data Radiologist's Impression: Chest X-Ray 05/18/23 13:40 XR chest 1V portable CLINICAL HISTORY: bradycardia TECHNIQUE: Single frontal radiograph of the chest was obtained. Comparison: Comparison is made to chest radiograph 10/16/2022 FINDINGS: Left shoulder tendon anchors are seen. Cardiomegaly is noted. The lungs are clear. No evidence of pleural effusion or pneumothorax. IMPRESSION: No acute chest disease. Cardiomegaly is noted. ACT 112: Negative or not required by law. Electronically signed by: Russ Cerrato M.D. 05/18/2023 2:18 PM Discharge Plan Visit Data Chief Complaint: Weakness Stated Complaint: WEAKNESS, PULSE LOW ED Provider: Domonique Lerma Discharge Problem: Symptomatic bradycardia, Near syncope, Atrial fibrillation with slow ventricular response Patient Disposition: Admitted As Inpatient Discharge Instructions Interventions: ED Discharge Assessment Last Done: 05/18/23 18:35
[2023-05-18] MEDS: INSULIN ASPART PER UNIT CHARGE SC SCH ×3 (16:39→23:51)
[2023-05-18] MEDS ORDERED: INSULIN ASPART PER UNIT CHARGE SC SCH (21:00)
[2023-05-18] MEDS ORDERED: LANTUS PER UNIT CHARGE SQ SCH (21:00)
[2023-05-18] MEDS: SIMVASTATIN 40 MG TAB PO SCH (21:00)
[2023-05-18] MEDS: FERROUS SULFATE 325 MG TAB PO SCH (21:00)
[2023-05-19] MEDS: SODIUM CHLORIDE 0.9% 1,000 ML IV SCH (04:40)
[2023-05-19] MEDS: INSULIN ASPART PER UNIT CHARGE SC SCH ×5 (04:40→21:28)
[2023-05-19 06:37] LABS: Hematocrit (blood only) 28.5 % (42.0-52.0); Hemoglobin 9.2 g/dl (14.0-18.0); Mean Corpuscular Hemoglobin 28.4 pg (25.0-34.0); Mean Corpuscular Hgb Conc 32.3 g/dL (32.0-36.0); Mean Platelet Volume 10.3 fL (9.4-12.4); Platelet Count 129 K/uL (130-400); RDW Coefficient of Variation 17.5 % (11.5-14.5); RDW Standard Deviation 55.8 fL (36.4-46.3); Red Blood Count 3.24 M/uL (4.70-6.10); White Blood Count 4.82 K/ul (4.8-10.8)
[2023-05-19 07:17] LABS: BUN Creatinine Ratio 12.4 (10-20); Calcium 8.1 mg/dl (8.6-10.3); Creatinine Clr Calc Pharmacy 59.8 ml/min; Est GFR (African American) 62.9 ml/min; Est GFR (Non-African American) 54.3 ml/min; Magnesium 1.8 mg/dl (1.7-2.4); Phosphorus 3.1 mg/dl (2.5-4.9); Potassium 4.3 mmol/L (3.5-5.1)
[2023-05-19] MEDS: allopurinoL 100 MG TAB PO SCH (08:55)
[2023-05-19] MEDS: ASPIRIN 81 MG ECTAB PO SCH (08:55)
[2023-05-19] MEDS: PANTOprazole 40 MG TAB PO SCH (08:56)
[2023-05-19] MEDS: CHOLECALCIFEROL 1,000 UNITS 25 MCG TAB PO SCH (08:56)
[2023-05-19] MEDS: FERROUS SULFATE 325 MG TAB PO SCH ×2 (08:56→21:28)
[2023-05-19] MEDS: LANTUS PER UNIT CHARGE SQ SCH ×2 (08:56→21:27)
[2023-05-19] MEDS: FOLIC ACID 1 MG TAB PO SCH (08:56)
--- NOTE | 2023-05-19 12:58 | Hospitalist Progress Note ---
Date of Service May 19, 2023 Assessment & Plan (1) Symptomatic bradycardia: Plan Symptomatic bradycardia Dizziness Patient presents with dizziness, found to have heart rate in 30s and in A-fib, converted to sinus rhythm after a dose of atropine in the ED. Vitals currently stable, will get orthostatic vitals. Troponin 9.6. EKG with sinus rhythm with heart rate 66, first-degree AV block. Free from any symptoms at rest Nadolol has been on hold Heart rate went down to as low as 29 on monitor Appreciate cardiology input and recommendation for a pacemaker Likely to pacemaker on Saturday Chronic elevation of LFT: OP chart review w/ chronic elevation of LFT. Likely secondary to heavy alcohol use in the past. Monitor. Patient denies use of alcohol in the last 3 years. We will recheck LFT tomorrow T2DM complicated with polyneuropathy: Blood glucose elevated at presentation, get A1c in AM-pending. Sliding scale insulin, glycemic pharmacy consult. Other chronic medical conditions: HTN, HLD, CKD stage III, MDD, panic disorder ----continue with/resume home meds as and when able. Remain stable DVT prophylaxis: Heparin subcu DNR/DNI Admission and Anticipated Discharge Date Admission Date: May 18, 2023 Subjective 05/19/2023 The patient was seen and examined in telemetry unit He denies any symptoms and noted to have bradycardia with a rate as low as 29 He will have pacemaker on Saturday Review of Systems Review of Systems: All systems reviewed and are unremarkable except as noted below Physical Exam Physical Exam: Sitting on a chair without any acute distress Constitutional: well developed, well nourished and + obese; not ill appearing Eyes: PERRL, conjunctivae normal, anicteric sclerae ENMT: external ear and nose normal, oropharynx normal Neck: trachea midline, no thyromegaly Respiratory: no respiratory distress Auscultation: lungs clear to auscultation bilaterally Cardiovascular: Rate/Rhythm: regular rate, regular rhythm and + bradycardic Heart Sounds: normal S1 and normal S2; no murmur Extremities: + edema (Trace to 1+ edema bilaterally) Gastrointestinal (Abdomen): Inspection/Auscultation: normal bowel sounds; abdomen not distended Percussion/Palpation: abdomen soft; abdomen nontender Musculoskeletal: No acute arthritis involving any joint Neurologic: normal touch/pain/proprioception and moves all extremities; no focal motor deficits Psychiatric: A+Ox3, euthymic affect Lymphatic: no cervical or axillary lymphadenopathy Results & Data Results & Data Vital Signs (Past 12 Hours) Vital Signs Temp Pulse Resp BP Pulse Ox O2 Del Method 05/19/23 11:01 36.7 C 53 L 16 130/72 98 Room Air 05/19/23 10:22 Room Air 05/19/23 07:47 36.8 C 51 L 16 131/64 98 Room Air 05/19/23 03:30 36.6 C 52 L 17 111/47 L 95 Room Air Laboratory Results Short CBC 05/18/23 05/19/23 Range/Units 13:40 05:45 WBC 5.70 4.82 (4.8-10.8) K/ul Hgb 10.7 L 9.2 L (14.0-18.0) g/dl Hct 34.2 L 28.5 L (42.0-52.0) % Plt Count 150 129 L (130-400) K/uL BMP 05/18/23 05/19/23 13:40 05:45 Sodium 134 L 138 Potassium 5.1 4.3 Chloride 103 107 Carbon Dioxide 23 26 BUN 17 16 Creatinine 1.54 H 1.29 Glucose 383 H* 192 H Calcium 8.7 8.1 L Liver Function 05/18/23 Range/Units 13:40 Total Bilirubin 1.9 H (0.2-1.0) mg/dl AST 50 H (13-39) U/L ALT 32 (7-52) U/L Alkaline Phosphatase 207 H (34-104) U/L Albumin 3.8 (3.4-5.0) gm/dl Medications Administered Current Inpatient Medications Acetaminophen (Acetaminophen 325 Mg Tab) 650 mg PO Q4H PRN PRN Reason: Pain or Fever Stop: 06/17/23 15:14 Al Hydrox/Mg Hydrox/Simethicone (Aluminum/Magnesium Susp 30 Ml Udc) 15 ml PO Q4H PRN PRN Reason: Dyspepsia Stop: 06/17/23 15:14 Albuterol (Albuterol Hfa 8 Gm Inhaler) 2 puffs INH TID PRN PRN Reason: shortness of breath or wheezin Stop: 06/17/23 15:41 Allopurinol (Allopurinol 100 Mg Tab) 100 mg PO QAM DEVIN Stop: 06/18/23 08:59 Last Admin: 05/19/23 08:55 Dose: 100 mg Aspirin (Aspirin 81 Mg Ectab) 81 mg PO QAM DEVIN Stop: 06/18/23 08:59 Last Admin: 05/19/23 08:55 Dose: 81 mg Dextrose (Dextrose 50% 50 Ml Syringe) 25 - 50 ml IV UD PRN; Protocol PRN Reason: Hypoglycemia Protocol Stop: 06/17/23 15:11 Ferrous Sulfate (Ferrous Sulfate 325 Mg Tab) 325 mg PO BID DEVIN Stop: 06/17/23 20:59 Last Admin: 05/19/23 08:56 Dose: 325 mg Folic Acid (Folic Acid 1 Mg Tab) 1 mg PO DAILY DEVIN Stop: 06/18/23 08:59 Last Admin: 05/19/23 08:56 Dose: 1 mg Glucagon (Glucagon For Inj 1 Mg Vial) 1 mg SQ UD PRN; Protocol PRN Reason: Hypoglycemia Protocol Stop: 06/17/23 15:11 Glucose (Glucose 10 Tab/Tube) 4 - 8 tab PO UD PRN; Protocol PRN Reason: Hypoglycemia Treatment Stop: 06/17/23 15:11 Glucose (Glucose 40% Gel 15 Gm Tube) 15 - 30 gm PO UD PRN; Protocol PRN Reason: Hypoglycemia Protocol Stop: 06/17/23 15:11 Sodium Chloride (Nss 1000ml) 1,000 mls @ 70 mls/hr IV .[id number] PENDING SALE TO [facility] Stop: 05/19/23 16:47 Last Admin: 05/19/23 04:40 Dose: 70 mls/hr Insulin Aspart (Insulin Aspart Per Unit Charge) 0 units SC ACHS PENDING SALE TO [facility] Stop: 06/17/23 16:29 Last Admin: 05/19/23 08:55 Dose: 7 units Insulin Glargine (Lantus Per Unit Charge) 20 units SQ BID DEVIN Stop: 06/18/23 08:59 Last Admin: 05/19/23 08:56 Dose: 20 units Magnesium Hydroxide (Magnesium Hydroxide Susp 30 Ml Udc) 30 ml PO Q12H PRN PRN Reason: Constipation Stop: 06/17/23 15:14 Miscellaneous (Carbohydrates For Hypoglycemia ) 15 - 30 gm PO UD PRN PRN Reason: Hypoglycemia Protocol Stop: 06/17/23 15:11 Miscellaneous Information (Pharmacy Glycemic Mgmt Consult) 1 each N/A UD PRN PRN Reason: Consult Stop: 06/17/23 15:11 Pantoprazole Sodium (Pantoprazole 40 Mg Tab) 40 mg PO DAILY [facility] Stop: 06/18/23 08:59 Last Admin: 05/19/23 08:56 Dose: 40 mg Simvastatin (Simvastatin 40 Mg Tab) 40 mg PO HS [facility] Stop: 06/17/23 20:59 Last Admin: 05/18/23 21:00 Dose: 40 mg Vitamin D (Cholecalciferol 1,000 Units 25 Mcg Tab) 1,000 units PO [facility] Stop: 06/18/23 08:59 Last Admin: 05/19/23 08:56 Dose: 1,000 units
--- NOTE | 2023-05-19 13:52 | Pharmacy Report ---
Pharmacy Glycemic Short Note 2 - Date of Service May 19, 2023 - Glycemic Short BSG Results (Last 24 hours): 05/18/23 05/18/23 05/18/23 13:40 15:58 18:19 Glucose 383 H* POC Glucose 255 H 232 H 05/18/23 05/19/23 05/19/23 20:22 03:38 05:45 Glucose 192 H POC Glucose 193 H 184 H 05/19/23 05/19/23 07:45 11:06 Glucose POC Glucose 174 H 203 H OUTPATIENT ANTIDIABETIC REGIMEN: * Insulin glargine 60 units SC daily, 36 units SC HS * Empagliflozin 25 mg PO daily * Metformin 1000 mg PO BIDM * Semaglutide 1 mg SC weekly HbA1c: 8.7% (10/27/21), recheck pending ASSESSMENT: * HS is a 73 year old male w/ symptomatic bradycardia * Patient known to pharmacy glycemic consult service, will use past inpatient data to guide initial dosing * BSGs elevated on admission (386 mg/dL) and remain mildly elevated today, ranging 174-386 mg/dL over past 24 hours * Given continued uptrend at dinner, will tighten carb ratio today * Plan is likely for patient to have pacemaker placement on Saturday05/21/23 PLAN FOR INPATIENT GLYCEMIC CONTROL: * Hold outpatient oral diabetes medications * Basal insulin * Lantus 20 units SQ BID * Bolus insulin * NovoLog per scale ACHS or Q6hrs while NPO * Goal Range: Low 110 mg/dL - High 140 mg/dL * Correction Factor: 20 mg/dL/unit * Nutritional / Prandial insulin per carb ratio of 1 unit per 5 grams CHO consumed
--- NOTE | 2023-05-19 14:31 | Cardiology Consultation ---
Date of Consultation May 19, 2023 Assessment & Plan (1) Symptomatic bradycardia: (2) Paroxysmal atrial fibrillation: -Patient with history of recent recurrent syncope and near syncope episodes. 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 1 documented episode of postoperative atrial fibrillation after colectomy in 2021. He is on nadolol due to his history of hepatic cirrhosis with esophageal varices. -He presented with what I feel is third-degree AV block with junctional escape rhythm in the 30s yesterday, improved to his baseline EKG after receiving a dose of atropine. Currently hemodynamically stable. -Summary transthoracic echocardiogram performed 05/19/2023: Sinus bradycardia in the 50s present during the study. Mild concentric left ventricular hypertrophy is present, normal LV wall motion, LVEF in the range of 55-60%, trace mitral regurgitation, grade 1 diastolic dysfunction. -I recommend patient remains in the hospital for dual-chamber permanent pacemaker which will likely be performed on 05/21/2023. Patient agreeable to this plan. Hold all AV lary blockers. -I attempted to reach the patient's son, Cedric, as per the patient's request, but I do not have his contact information and the only emergency contact listed in the patient's [facility] record and outpatient record is is spouse who is admitted at present. I will attempt to obtain Cedric's phone number again and reach out to him. History of Present Illness Attending Physician: Rustam Chavez MD History of Present Illness Simone Boykin is a 73-year-old male seen in cardiology consultation per the request of Dr Abbasi for the evaluation of symptomatic bradycardia. The patient's primary care provider is Dr. Ruvalcaba, with the [facility] clinic. He has a longstanding history of conduction system disease with first-degree AV block, right bundle branch block, and left anterior fascicular block. In October, he had undergone partial colectomy for treatment of adenocarcinoma and postoperatively was found to have paroxysmal atrial fibrillation. He converted to sinus rhythm spontaneously and cautiously was treated with metoprolol tartrate 25 mg twice daily. 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 His most recent EGD performed in February, revealed grade 2 esophageal varices. Yesterday, he arrived to visit his spouse, Liss, who is currently an inpatient at [facility]. Upon arrival he was dizzy and unable to walk from his vehicle into the hospital and therefore was assisted with a wheelchair. He was subsequently evaluated in the emergency department. EKG performed 05/18/2023 at 1337 (reviewed in the [employer] web berta) reveals third-degree AV block, with AV disassociation, and ventricular escape rhythm in the 30s. The patient received a dose of atropine with subsequent conversion to sinus rhythm with noted long first-degree AV block with NV interval of 260 ms, and bifascicular block morphology consistent with his previous baseline. In the interim, ongoing sinus bradycardia in the 50s is noted. He did well overnight last night and feels well this morning. He notes that he had a similar episode of dizziness a few weeks ago and passed out while at a restaurant. He thought that perhaps it was due to hypoglycemia and he ate some candy, but this did not really help his symptoms. He describes several recent episodes of transient dizziness. Allergies Allergy/AdvReac Type Severity Reaction Status Date / Time Iodinated Contrast Media AdvReac Intermediate Vomiting Verified 05/18/23 15:41 Home Medications Medication Instructions Recorded Confirmed Type albuterol sulfate 90 mcg/actuation 2 puffs inhalation TID PRN 06/24/19 05/18/23 History aerosol inhaler shortness of breath or wheezing allopurinol 100 mg tablet 100 mg PO QAM 06/24/19 05/18/23 History aspirin 81 mg tablet,delayed 81 mg PO QAM 06/24/19 05/18/23 History release (Adult Low Dose Aspirin) metformin 1,000 mg tablet 1,000 mg PO BID 06/24/19 05/18/23 History cholecalciferol (vitamin D3) 25 25 mcg PO QAM 09/27/21 05/18/23 History mcg (1,000 unit) capsule empagliflozin 25 mg tablet 25 mg PO QAM 10/19/21 05/18/23 History simvastatin 80 mg tablet 40 mg PO HS 10/19/21 05/18/23 History acetaminophen 325 mg tablet 650 mg PO Q6H PRN mild pain #30 11/14/21 05/18/23 Rx tabs semaglutide 1 mg/dose (4 mg/3 mL) 1 mg subcut WK 04/17/22 05/18/23 History subcutaneous pen injector (Ozempic) ascorbic acid (vitamin C) 500 mg 250 mg PO DAILY 10/16/22 05/18/23 History tablet,extended release (Vitamin C ER) ferrous sulfate 325 mg (65 mg 325 mg PO BID 10/16/22 05/18/23 History iron) tablet folic acid 1 mg tablet 1 mg PO DAILY 10/16/22 05/18/23 History hydroxyzine HCl 25 mg tablet 25 mg PO HS PRN Itching 10/16/22 05/18/23 History insulin glargine 100 unit/mL 48 unit subcut BID 10/16/22 05/18/23 History subcutaneous solution nadolol 20 mg tablet 20 mg PO AMPM 05/18/23 05/18/23 History pantoprazole 40 mg tablet,delayed 40 mg PO DAILY 05/18/23 05/18/23 History release Patient History Medical History Anemia BMI 34.0-34.9,adult Cancer COLON-REASON FOR SURGERY Chronic obstructive pulmonary disease LAST INHALER USE LAST WEEK CKD (chronic kidney disease) stage 3, GFR 30-59 ml/min Diabetes mellitus Dyslipidemia History of kidney stones History of pulmonary embolus (PE) REMOTE HX / LEG IN A A CAST - NO PROBLEMS SINCE Hypertension Neuropathy Obesity Sleep apnea CPAP/DOESN'T USE SOB (shortness of breath) on exertion 1 FLIGHT-"OUT OF SHAPE" Surgical History History of cholecystectomy History of colonoscopy 2020 History of esophagogastroduodenoscopy (EGD) (02/19/23) Dr. Baker History of total right knee replacement Hx of foot surgery LEFT HEEL Hx of repair of rotator cuff R&L S/P colon resection (10/26/21) Laparoscopic Assisted Right Colon Resection, Umbilical Hernia Repair- Singh Ambrose MD, FACS 10/26/2021 Status post laser lithotripsy of ureteral calculus 12/18/19 Family History Grandmother Diabetes Mother Breast cancer Sister Breast cancer Social History Smoking Status: Former smoker packs per day: 1; Second Hand Exposure: No; Do You Dip or Chew Tobacco: No; Tobacco Cessation Education Requested by Patient: No Hx Alcohol Use: No Hx Substance Use: No Preferred Language: Martiniquais Communication Ability: Effective Lodge Officer Required: No Beliefs That Will Affect Care: None marital status: Current Living Situation: Spouse current occupational status: retired How many Children do You have: 1 Other Information That Helps Us Care for You: No Feels Safe at Home: Yes Safety Concerns: Feels Safe At This Time during the past year weight has: remained stable Assistive Devices: Cane, Glasses, Hearing Aid - Bilateral and Walker Review of Systems Review of Systems: All systems reviewed & are unremarkable except as noted in HPI & below Physical Exam Constitutional: WD/WN, vitals as above Eyes: PERRL, conjunctivae normal, anicteric sclerae Respiratory: normal respiratory effort, lungs clear to auscultation Cardiovascular: RRR, no murmur, no edema Vessels: no JVD Gastrointestinal (Abdomen): normal bowel sounds, soft, nontender, no hepatosplenomegaly Neurologic: PERRL, EOMI, accommodation nl, no face palsy, no dysarthria Results & Data Vital Signs (Past 12 Hours) Vital Signs Temp Pulse Resp BP Pulse Ox O2 Del Method 05/19/23 11:01 36.7 C 53 L 16 130/72 98 Room Air 05/19/23 10:22 Room Air 05/19/23 07:47 36.8 C 51 L 16 131/64 98 Room Air 05/19/23 03:30 36.6 C 52 L 17 111/47 L 95 Room Air Laboratory Results Cardiac Enzymes 05/18/23 05/18/23 Range/Units 13:40 20:22 AST 50 H (13-39) U/L Troponin I High Sens 9.6 10.6 (0-20) pg/ml CBC 05/19/23 Range/Units 05:45 WBC 4.82 (4.8-10.8) K/ul RBC 3.24 L (4.70-6.10) M/uL Hgb 9.2 L (14.0-18.0) g/dl Hct 28.5 L (42.0-52.0) % Plt Count 129 L (130-400) K/uL Comprehensive Metabolic Panel 05/18/23 05/19/23 Range/Units 13:40 05:45 Sodium 138 (136-145) mmol/L Potassium 4.3 (3.5-5.1) mmol/L Chloride 107 (98-107) mmol/L Carbon Dioxide 26 (21-32) mmol/L BUN 17 16 (6-23) mg/dl Creatinine 1.54 H 1.29 (0.6-1.4) mg/dl Glucose 383 H* 192 H (70-99(Fasting)) mg/dl Calcium 8.1 L (8.6-10.3) mg/dl AST 50 H (13-39) U/L ALT 32 (7-52) U/L Alkaline Phosphatase 207 H (34-104) U/L Total Protein 6.7 (6.0-8.3) gm/dl Intake and Output 05/18/23 05/19/23 05/19/23 22:59 06:59 14:59 Intake Total 500 / 1700 200 / 1700 Balance 500 / 1700 200 / 1700 Intake: IV 500 / 1500 Sodium Chloride 0.9% 1000ML 500 500 / 500 ml @ 999 mls/hr IV .Q31M ONE Rx#:[id number] Oral 200 / 200 Other: # Unmeasured Voids 1 Weight 104.5 kg Weight Measurement Method Built in [employer] Diagnostic Findings EKG performed 05/18/2023 at 1337, reviewed in the [employer] Web application, as I find no paper copy on the patient's chart, and the tracing is not in [employer]. Although the initial computer interpretation cites a rhythm of atrial fibrillation, per my personal interpretation, third-degree heart block is present with AV disassociation, and junctional escape rhythm in the 30s. EKG performed 05/18/2023 at 1359 revealed marked sinus bradycardia at 42 bpm with premature atrial contractions. EKG performed today 05/19/2023 at 6:31 AM: Sinus bradycardia at 49 bpm with first- degree AV block, NV interval 246 ms, right bundle branch block, left anterior fascicular block.
--- NOTE | 2023-05-19 16:55 | Communication Note ---
Date of Service: May 19, 2023 I spoke to pt's son , Cedric, on the phone and updated him with regards to plans for pacemaker. Questions answered to his satisfaction. phone number: [phone]
[2023-05-19] MEDS: SIMVASTATIN 40 MG TAB PO SCH (21:28)
[2023-05-20 06:43] LABS: Basophils # (auto) 0.04 K/uL (0.00-0.20); Basophils % (auto) 0.8 %; Eosinophils # (auto) 0.26 K/uL (0.00-0.50); Eosinophils % (auto) 5.4 %; Hematocrit (blood only) 28.3 % (42.0-52.0); Hemoglobin 9.3 g/dl (14.0-18.0); Immature Granulocytes # (auto) 0.01 K/uL (0.01-0.20); Immature Granulocytes % (auto) 0.2 %; Lymphocytes # (auto) 1.02 K/uL (1.20-3.40); Lymphocytes % (auto) 21.3 %; Mean Corpuscular Hemoglobin 28.4 pg (25.0-34.0); Mean Corpuscular Hgb Conc 32.9 g/dL (32.0-36.0); Mean Corpuscular Volume 86.5 fL (80.0-100.0); Mean Platelet Volume 10.6 fL (9.4-12.4); Monocytes # (auto) 0.32 K/uL (0.11-0.59); Monocytes % (auto) 6.7 %; Neutrophils # (auto) 3.15 K/uL (1.40-6.50); Neutrophils % (auto) 65.6 %; Platelet Count 127 K/uL (130-400); RDW Coefficient of Variation 17.3 % (11.5-14.5); RDW Standard Deviation 54.9 fL (36.4-46.3); Red Blood Count 3.27 M/uL (4.70-6.10)
[2023-05-20 06:45] LABS: Albumin Globulin Ratio 1.3 (0.9-2); Albumin Level 3.3 gm/dl (3.4-5.0); BUN Creatinine Ratio 10.4 (10-20); Bilirubin,Total 1.7 mg/dl (0.2-1.0); Calcium 8.2 mg/dl (8.6-10.3); Creatinine Clr Calc Pharmacy 42.1 ml/min; Est GFR (African American) 41.2 ml/min; Est GFR (Non-African American) 35.6 ml/min; Globulin 2.5 gm/dl (2.5-4.0); Magnesium 1.8 mg/dl (1.7-2.4); Potassium 4.3 mmol/L (3.5-5.1); Total Protein 5.8 gm/dl (6.0-8.3)
[2023-05-20 07:37] LABS: Estimated Average Glucose 197 mg/dl; Hemoglobin A1C 8.5 % (4.5-5.6)
[2023-05-20] MEDS: FERROUS SULFATE 325 MG TAB PO SCH ×2 (08:45→20:15)
[2023-05-20] MEDS: ASPIRIN 81 MG ECTAB PO SCH (08:45)
[2023-05-20] MEDS: CHOLECALCIFEROL 1,000 UNITS 25 MCG TAB PO SCH (08:45)
[2023-05-20] MEDS: FOLIC ACID 1 MG TAB PO SCH (08:45)
[2023-05-20] MEDS: PANTOprazole 40 MG TAB PO SCH (08:45)
[2023-05-20] MEDS: allopurinoL 100 MG TAB PO SCH (08:45)
[2023-05-20] MEDS: LANTUS PER UNIT CHARGE SQ SCH (08:50)
[2023-05-20] MEDS: INSULIN ASPART PER UNIT CHARGE SC SCH ×4 (08:50→21:06)
--- NOTE | 2023-05-20 12:48 | Cardiology Progress Note ---
Date of Service May 20, 2023 Assessment & Plan (1) Symptomatic bradycardia: (2) Paroxysmal atrial fibrillation: Plan: -Patient with history of recent recurrent syncope and near syncope episodes. 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 1 documented episode of postoperative atrial fibrillation after colectomy in 2021. He is on nadolol due to his history of hepatic cirrhosis with esophageal varices. -He presented with what I feel is third-degree AV block with junctional escape rhythm in the 30s yesterday, improved to his baseline EKG after receiving a dose of atropine. Currently hemodynamically stable. -Summary transthoracic echocardiogram performed 05/19/2023: Sinus bradycardia in the 50s present during the study. Mild concentric left ventricular hypertrophy is present, normal LV wall motion, LVEF in the range of 55-60%, trace mitral regurgitation, grade 1 diastolic dysfunction. -I recommend patient remains in the hospital for dual-chamber permanent pacemaker which will likely be performed on 05/21/2023. Patient agreeable to this plan. Hold all AV lary blockers. -I attempted to reach the patient's son, Cedric, as per the patient's request, but I do not have his contact information and the only emergency contact listed in the patient's [facility] record and outpatient record is is spouse who is admitted at present. I will attempt to obtain Cedric's phone number again and reach out to him. Plan 05/20/2023 Plan as outlined above. 73-year-old male with underlying conduction system disease past history of syncope. Transient AV block on admitting EKGs Plan dual-chamber pacemaker in a.m. Admission and Anticipated Discharge Date Admission Date: May 18, 2023 Subjective Patient seen and examined, chart, medications telemetry reviewed. No further arrhythmias on telemetry. No dizziness or lightheadedness. Review of Systems Review of Systems: All systems reviewed & are unremarkable except as noted in Subjective Physical Exam Constitutional: WD/WN, vitals as above Eyes: PERRL, conjunctivae normal, anicteric sclerae Respiratory: normal respiratory effort, lungs clear to auscultation Cardiovascular: RRR, no murmur, no edema Vessels: no JVD Gastrointestinal (Abdomen): normal bowel sounds, soft, nontender, no hepatosplenomegaly Neurologic: PERRL, EOMI, accommodation nl, no face palsy, no dysarthria Results & Data Vital Signs (Past 12 Hours) Vital Signs Temp Pulse Resp BP BP Pulse Ox O2 Del Method 05/20/23 11:35 36.6 C 62 18 128/71 95 Room Air 05/20/23 07:47 37 C 55 L 18 125/67 94 Room Air 05/20/23 03:43 36.7 C 58 L 16 103/51 L 94 Room Air Laboratory Results Laboratory Results - last 24 hr 05/19/23 05/19/23 05/19/23 05:45 17:15 20:40 WBC RBC Hgb Hct MCV MCH MCHC RDW Std Deviation RDW Coeff of Rea Plt Count MPV Immature Gran % (Auto) Neut % (Auto) Lymph % (Auto) Dickenson % (Auto) Eos % (Auto) Baso % (Auto) Neut # (Auto) Lymph # (Auto) Dickenson # (Auto) Eos # (Auto) Baso # (Auto) Immature Gran # (Auto) Sodium Potassium Chloride Carbon Dioxide Anion Gap BUN Creatinine Est Cr Clr Drug Dosing Est GFR ( Amer) Est GFR (Non-Af Amer) BUN/Creatinine Ratio Glucose POC Glucose 98 157 H Estimat Average Glucose 197 Hemoglobin A1c 8.5 H Calcium Magnesium Total Bilirubin AST ALT Alkaline Phosphatase Total Protein Albumin Globulin Albumin/Globulin Ratio 05/20/23 05/20/23 05/20/23 05:48 05:48 07:55 WBC 4.80 RBC 3.27 L Hgb 9.3 L Hct 28.3 L MCV 86.5 MCH 28.4 MCHC 32.9 RDW Std Deviation 54.9 H RDW Coeff of Rea 17.3 H Plt Count 127 L MPV 10.6 Immature Gran % (Auto) 0.2 Neut % (Auto) 65.6 Lymph % (Auto) 21.3 Dickenson % (Auto) 6.7 Eos % (Auto) 5.4 Baso % (Auto) 0.8 Neut # (Auto) 3.15 Lymph # (Auto) 1.02 L Dickenson # (Auto) 0.32 Eos # (Auto) 0.26 Baso # (Auto) 0.04 Immature Gran # (Auto) 0.01 Sodium 138 Potassium 4.3 Chloride 107 Carbon Dioxide 26 Anion Gap 5 BUN 19 Creatinine 1.83 H D Est Cr Clr Drug Dosing 42.1 Est GFR ( Amer) 41.2 Est GFR (Non-Af Amer) 35.6 BUN/Creatinine Ratio 10.4 Glucose 168 H POC Glucose 167 H Estimat Average Glucose Hemoglobin A1c Calcium 8.2 L Magnesium 1.8 Total Bilirubin 1.7 H AST 40 H ALT 25 Alkaline Phosphatase 172 H Total Protein 5.8 L Albumin 3.3 L Globulin 2.5 Albumin/Globulin Ratio 1.3 05/20/23 12:10 WBC RBC Hgb Hct MCV MCH MCHC RDW Std Deviation RDW Coeff of Rea Plt Count MPV Immature Gran % (Auto) Neut % (Auto) Lymph % (Auto) Dickenson % (Auto) Eos % (Auto) Baso % (Auto) Neut # (Auto) Lymph # (Auto) Dickenson # (Auto) Eos # (Auto) Baso # (Auto) Immature Gran # (Auto) Sodium Potassium Chloride Carbon Dioxide Anion Gap BUN Creatinine Est Cr Clr Drug Dosing Est GFR ( Amer) Est GFR (Non-Af Amer) BUN/Creatinine Ratio Glucose POC Glucose 202 H Estimat Average Glucose Hemoglobin A1c Calcium Magnesium Total Bilirubin AST ALT Alkaline Phosphatase Total Protein Albumin Globulin Albumin/Globulin Ratio
--- NOTE | 2023-05-20 13:05 | Pharmacy Report ---
Pharmacy Glycemic Short Note 2 - Date of Service May 20, 2023 - Glycemic Short BSG Results (Last 24 hours): 05/19/23 05/19/23 05/20/23 17:15 20:40 05:48 Glucose 168 H POC Glucose 98 157 H 05/20/23 05/20/23 07:55 12:10 Glucose POC Glucose 167 H 202 H OUTPATIENT ANTIDIABETIC REGIMEN: * Insulin glargine 60 units SC daily, 36 units SC HS * Empagliflozin 25 mg PO daily * Metformin 1000 mg PO BIDM * Semaglutide 1 mg SC weekly HbA1c: 8.7% (10/27/21), recheck pending ASSESSMENT: 05/20/23: * BSGs yesterday of 174, 203, 98, and 157 mg/dL w/ fasting BSG this morning of 167 mg/dL * Received 70 units of insulin (40 units of basal and 30 units of bolus) * Patient is NPO after midnight on 05/21 for planned pacemaker 05/19/23: * HS is a 73 year old male w/ symptomatic bradycardia * Patient known to pharmacy glycemic consult service, will use past inpatient data to guide initial dosing * BSGs elevated on admission (386 mg/dL) and remain mildly elevated today, ranging 174-386 mg/dL over past 24 hours * Given continued uptrend at dinner, will tighten carb ratio today * Plan is likely for patient to have pacemaker placement on Saturday05/21/23 PLAN FOR INPATIENT GLYCEMIC CONTROL: * Hold outpatient oral diabetes medications * Basal insulin * Lantus 20-25 units SQ BID * Reassess basal in AM for NPO status * Bolus insulin * NovoLog per scale ACHS or Q6hrs while NPO * Goal Range: Low 110 mg/dL - High 140 mg/dL * Correction Factor: 20 mg/dL/unit * Nutritional / Prandial insulin per carb ratio of 1 unit per 5 grams CHO consumed
--- NOTE | 2023-05-20 15:17 | Hospitalist Progress Note ---
Date of Service May 20, 2023 Assessment & Plan (1) Symptomatic bradycardia: Plan Symptomatic bradycardia Dizziness Patient presents with dizziness, found to have heart rate in 30s and in A-fib, converted to sinus rhythm after a dose of atropine in the ED. Vitals currently stable, will get orthostatic vitals. Troponin 9.6. EKG with sinus rhythm with heart rate 66, first-degree AV block. Free from any symptoms at rest Nadolol has been on hold Heart rate went down to as low as 29 on monitor Appreciate cardiology input and recommendation for a pacemaker Remains medically stable Will have pacemaker placement tomorrow Chronic elevation of LFT: OP chart review w/ chronic elevation of LFT. Likely secondary to heavy alcohol use in the past. Monitor. Patient denies use of alcohol in the last 3 years. We will recheck LFT tomorrow-LFTs are almost normal-bilirubin 1.7, AST 40 and alkaline phos 172 T2DM complicated with polyneuropathy: Blood glucose elevated at presentation, get A1c in AM-pending. Sliding scale insulin, glycemic pharmacy consult. Other chronic medical conditions: HTN, HLD, CKD stage III, MDD, panic disorder ----continue with/resume home meds as and when able. Remain stable DVT prophylaxis: Heparin subcu DNR/DNI Admission and Anticipated Discharge Date Admission Date: May 18, 2023 Subjective 05/19/2023 The patient was seen and examined in telemetry unit He denies any symptoms and noted to have bradycardia with a rate as low as 29 He will have pacemaker on Saturday05/20/2023 The patient was seen and examined in telemetry unit He did not have any more pauses or bradycardia Will have pacemaker placement tomorrow Denies any symptoms today Review of Systems Review of Systems: All systems reviewed and are unremarkable except as noted below Physical Exam Physical Exam: Sitting on a chair without any acute distress Constitutional: well developed, well nourished and + obese; not ill appearing Eyes: PERRL, conjunctivae normal, anicteric sclerae ENMT: external ear and nose normal, oropharynx normal Neck: trachea midline, no thyromegaly Respiratory: no respiratory distress Auscultation: lungs clear to auscultation bilaterally Cardiovascular: Rate/Rhythm: regular rate, regular rhythm and + bradycardic Heart Sounds: normal S1 and normal S2; no murmur Extremities: + edema (Trace to 1+ edema bilaterally) Gastrointestinal (Abdomen): Inspection/Auscultation: normal bowel sounds; abdomen not distended Percussion/Palpation: abdomen soft; abdomen nontender Musculoskeletal: No acute arthritis involving any joint Neurologic: normal touch/pain/proprioception and moves all extremities; no focal motor deficits Psychiatric: A+Ox3, euthymic affect Lymphatic: no cervical or axillary lymphadenopathy Results & Data Results & Data Vital Signs (Past 12 Hours) Vital Signs Temp Pulse Resp BP BP Pulse Ox O2 Del Method 05/20/23 14:40 05/20/23 11:35 36.6 C 62 18 128/71 95 Room Air 05/20/23 07:47 37 C 55 L 18 125/67 94 Room Air 05/20/23 03:43 36.7 C 58 L 16 103/51 L 94 Room Air O2 Del Method 05/20/23 14:40 Room Air 05/20/23 11:35 05/20/23 07:47 05/20/23 03:43 Laboratory Results Short CBC 05/20/23 Range/Units 05:48 WBC 4.80 (4.8-10.8) K/ul Hgb 9.3 L (14.0-18.0) g/dl Hct 28.3 L (42.0-52.0) % Plt Count 127 L (130-400) K/uL BMP 05/20/23 05:48 Sodium 138 Potassium 4.3 Chloride 107 Carbon Dioxide 26 BUN 19 Creatinine 1.83 H D Glucose 168 H Calcium 8.2 L Liver Function 05/20/23 Range/Units 05:48 Total Bilirubin 1.7 H (0.2-1.0) mg/dl AST 40 H (13-39) U/L ALT 25 (7-52) U/L Alkaline Phosphatase 172 H (34-104) U/L Albumin 3.3 L (3.4-5.0) gm/dl Medications Administered Current Inpatient Medications Acetaminophen (Acetaminophen 325 Mg Tab) 650 mg PO Q4H PRN PRN Reason: Pain or Fever Stop: 06/17/23 15:14 Al Hydrox/Mg Hydrox/Simethicone (Aluminum/Magnesium Susp 30 Ml Udc) 15 ml PO Q4H PRN PRN Reason: Dyspepsia Stop: 06/17/23 15:14 Albuterol (Albuterol Hfa 8 Gm Inhaler) 2 puffs INH TID PRN PRN Reason: shortness of breath or wheezin Stop: 06/17/23 15:41 Allopurinol (Allopurinol 100 Mg Tab) 100 mg PO QAM [facility] Stop: 06/18/23 08:59 Last Admin: 05/20/23 08:45 Dose: 100 mg Aspirin (Aspirin 81 Mg Ectab) 81 mg PO QAM [facility] Stop: 06/18/23 08:59 Last Admin: 05/20/23 08:45 Dose: 81 mg Dextrose (Dextrose 50% 50 Ml Syringe) 25 - 50 ml IV UD PRN; Protocol PRN Reason: Hypoglycemia Protocol Stop: 06/17/23 15:11 Ferrous Sulfate (Ferrous Sulfate 325 Mg Tab) 325 mg PO BID [facility] Stop: 06/17/23 20:59 Last Admin: 05/20/23 08:45 Dose: 325 mg Folic Acid (Folic Acid 1 Mg Tab) 1 mg PO DAILY [facility] Stop: 06/18/23 08:59 Last Admin: 05/20/23 08:45 Dose: 1 mg Glucagon (Glucagon For Inj 1 Mg Vial) 1 mg SQ UD PRN; Protocol PRN Reason: Hypoglycemia Protocol Stop: 06/17/23 15:11 Glucose (Glucose 10 Tab/Tube) 4 - 8 tab PO UD PRN; Protocol PRN Reason: Hypoglycemia Treatment Stop: 06/17/23 15:11 Glucose (Glucose 40% Gel 15 Gm Tube) 15 - 30 gm PO UD PRN; Protocol PRN Reason: Hypoglycemia Protocol Stop: 06/17/23 15:11 Insulin Aspart (Insulin Aspart Per Unit Charge) 0 units SC ACHS [facility] Stop: 06/17/23 16:29 Last Admin: 05/20/23 12:47 Dose: 16 units Insulin Glargine (Lantus Per Unit Charge) 0 units SQ BID [facility]; Protocol Stop: 05/20/23 21:01 Magnesium Hydroxide (Magnesium Hydroxide Susp 30 Ml Udc) 30 ml PO Q12H PRN PRN Reason: Constipation Stop: 06/17/23 15:14 Miscellaneous (Carbohydrates For Hypoglycemia ) 15 - 30 gm PO UD PRN PRN Reason: Hypoglycemia Protocol Stop: 06/17/23 15:11 Miscellaneous Information (Pharmacy Glycemic Mgmt Consult) 1 each N/A UD PRN PRN Reason: Consult Stop: 06/17/23 15:11 Pantoprazole Sodium (Pantoprazole 40 Mg Tab) 40 mg PO DAILY [facility] Stop: 06/18/23 08:59 Last Admin: 05/20/23 08:45 Dose: 40 mg Simvastatin (Simvastatin 40 Mg Tab) 40 mg PO [facility] Stop: 06/17/23 20:59 Last Admin: 05/19/23 21:28 Dose: 40 mg Vitamin D (Cholecalciferol 1,000 Units 25 Mcg Tab) 1,000 units PO [facility] Stop: 06/18/23 08:59 Last Admin: 05/20/23 08:45 Dose: 1,000 units
[2023-05-20] MEDS: SIMVASTATIN 40 MG TAB PO SCH (20:15)
--- NOTE | 2023-05-20 20:45 | Electrocardiogram Report ---
Test Reason : Blood Pressure : / mmHG Vent. Rate : 036 BPM Atrial Rate : 000 BPM P-R Int : 000 ms QRS Dur : 118 ms QT Int : 588 ms P-R-T Axes : 000 -41 -42 degrees QTc Int : 454 ms Atrial fibrillation with slow ventricular response with ventricular escape complexes Left axis deviation Left ventricular hypertrophy with QRS widening Abnormal ECG When compared with ECG of 16-OCT-2022 16:38, Atrial fibrillation has replaced Sinus rhythm Vent. rate has decreased BY 31 BPM (RBBB and left anterior fascicular block) is no longer Present Confirmed by Yahir Medeiros ([id number]) on 05/20/2023 8:44:48 PM Referred By: Confirmed By:Yahir Medeiros
--- NOTE | 2023-05-20 20:53 | Electrocardiogram Report ---
Test Reason : Blood Pressure : / mmHG Vent. Rate : 042 BPM Atrial Rate : 042 BPM P-R Int : 376 ms QRS Dur : 126 ms QT Int : 568 ms P-R-T Axes : 014 -47 -33 degrees QTc Int : 474 ms Sinus rhythm with 2nd degree A-V block (Mobitz I) Left axis deviation Left ventricular hypertrophy with QRS widening T wave abnormality, consider lateral ischemia Abnormal ECG When compared with ECG of 18-MAY-2023 13:37, Mobitz I is now present T wave inversion now evident in Anterolateral leads Confirmed by Yahir Medeiros ([id number]) on 05/20/2023 8:53:10 PM Referred By: REFERRED SELF Confirmed By:Yahir Medeiros
--- NOTE | 2023-05-20 20:58 | Electrocardiogram Report ---
Test Reason : Blood Pressure : / mmHG Vent. Rate : 051 BPM Atrial Rate : 065 BPM P-R Int : 000 ms QRS Dur : 122 ms QT Int : 538 ms P-R-T Axes : 029 -48 -20 degrees QTc Int : 495 ms Sinus rhythm with 2nd degree A-V block (Mobitz I) Left anterior fascicular block Left ventricular hypertrophy with QRS widening T wave abnormality, consider inferolateral ischemia Abnormal ECG When compared with ECG of 18-MAY-2023 13:59, No significant change Confirmed by Yahir Medeiros ([id number]) on 05/20/2023 8:58:06 PM Referred By: REFERRED SELF Confirmed By:Yahir Medeiros
[2023-05-20] MEDS ORDERED: LANTUS PER UNIT CHARGE SQ SCH (21:00)
--- NOTE | 2023-05-20 21:00 | Electrocardiogram Report ---
Test Reason : Blood Pressure : / mmHG Vent. Rate : 067 BPM Atrial Rate : 067 BPM P-R Int : 286 ms QRS Dur : 122 ms QT Int : 450 ms P-R-T Axes : -04 -49 002 degrees QTc Int : 475 ms Sinus rhythm with 1st degree A-V block Left anterior fascicular block Left ventricular hypertrophy with QRS widening Abnormal ECG When compared with ECG of 18-MAY-2023 14:01, Sinus rhythm is no longer with 2nd degree A-V block (Mobitz I) Confirmed by Yahir Medeiros ([id number]) on 05/20/2023 9:00:06 PM Referred By: REFERRED SELF Confirmed By:Yahir Medeiros
--- NOTE | 2023-05-20 21:01 | Electrocardiogram Report ---
Test Reason : Blood Pressure : / mmHG Vent. Rate : 066 BPM Atrial Rate : 066 BPM P-R Int : 264 ms QRS Dur : 122 ms QT Int : 472 ms P-R-T Axes : 011 -49 -06 degrees QTc Int : 494 ms Sinus rhythm with 1st degree A-V block Right bundle branch block Left anterior fascicular block Left ventricular hypertrophy with QRS widening Abnormal ECG When compared with ECG of 18-MAY-2023 14:04, No significant change was found Confirmed by Yahir Medeiros ([id number]) on 05/20/2023 9:00:46 PM Referred By: REFERRED SELF Confirmed By:Yahir Medeiros
--- NOTE | 2023-05-20 22:40 | Electrocardiogram Report ---
Test Reason : Blood Pressure : / mmHG Vent. Rate : 049 BPM Atrial Rate : 049 BPM P-R Int : 246 ms QRS Dur : 138 ms QT Int : 532 ms P-R-T Axes : -01 -47 -18 degrees QTc Int : 480 ms Sinus bradycardia with 1st degree A-V block with Premature atrial complexes Right bundle branch block Left anterior fascicular block Bifascicular block Voltage criteria for left ventricular hypertrophy Abnormal ECG When compared with ECG of 18-MAY-2023 14:11, Premature atrial complexes are now Present Confirmed by Yahir Medeiros ([id number]) on 05/20/2023 10:40:07 PM Referred By: REFERRED SELF Confirmed By:Yahir Medeiros
[2023-05-21 06:40] LABS: BUN Creatinine Ratio 15.1 (10-20); Calcium 8.8 mg/dl (8.6-10.3); Creatinine Clr Calc Pharmacy 52.8 ml/min; Est GFR (African American) 54.1 ml/min; Est GFR (Non-African American) 46.7 ml/min; Magnesium 1.8 mg/dl (1.7-2.4); Potassium 4.2 mmol/L (3.5-5.1)
[2023-05-21] MEDS ORDERED: LIDOCAINE 1% LOCAL 20 ML VIAL ONE (06:57)
[2023-05-21] MEDS ORDERED: WATER, STERILE FOR INJ 10 ML VIAL ONE (06:57)
[2023-05-21] MEDS ORDERED: VANCOMYCIN HCL 1000MG/20ML VIAL ONE (06:58)
[2023-05-21] MEDS ORDERED: BUPIVACAINE 0.25% PF 30 ML VIAL ONE (06:58)
--- NOTE | 2023-05-21 07:45 | History & Physical Bridge Note ---
Date of Service May 21, 2023 History & Physical Bridge Note I have examined the patient, reviewed the History & Physical and in the interval since the performance of the History & Physical I have noted the following changes of clinical significance: pt with intermittent CHB and SSS recommended a dual chamber ppm prior to discharge. Discussed the procedure and potential risks with the patient-he expressed an understanding and consents signed.
--- NOTE | 2023-05-21 07:45 | Pre Anesthesia Assessment ---
Date of Service May 21, 2023 Pre Sedation Assessment Vital Signs Temp Pulse Pulse Resp BP BP Pulse Ox 05/21/23 03:32 37.1 C 60 17 121/57 L 93 05/20/23 22:50 59 L 05/20/23 23:44 36.6 C 55 L 17 109/45 L 94 05/20/23 20:00 05/20/23 19:38 36.8 C 62 18 134/71 95 05/20/23 16:47 36.7 C 61 18 113/49 L 93 05/20/23 14:40 05/20/23 11:35 36.6 C 62 18 128/71 95 05/20/23 07:47 37 C 55 L 18 125/67 94 O2 Del Method O2 Del Method 05/21/23 03:32 Room Air 05/20/23 22:50 05/20/23 23:44 Room Air 05/20/23 20:00 Room Air 05/20/23 19:38 Room Air 05/20/23 16:47 Room Air 05/20/23 14:40 Room Air 05/20/23 11:35 Room Air 05/20/23 07:47 Room Air Cardiovascular + bradycardic Respiratory normal respiratory effort, lungs clear to auscultation Pre-Sedation Airway Assessment Smoking Status: Former smoker Hx Sleep Apnea: No Hx Difficult Intubation: No Short, Thick Neck: No Thyromental Distance: < 3.5 Finger Breadths Oral Cavity: + Dental Abnormalities Mallampati Class: II ASA: ASA3 NPO Status Date of Last Intake of Fluids: 05/20/23 Date of Last Intake of Solid Food: 05/20/23 Procedure Planning Contraindications for Sedation: none Current Medications Reviewed: Yes Notes The planned sedation has been discussed with the patient. Informed Consent was obtained. I have identified the patient, determined the appropriateness of sedation and have assessed the patient immediately prior to the procedure. All medicine(s) and interventions are by my order.
[2023-05-21] MEDS ORDERED: methylPREDNISolone 125 MG/2 ML VIAL ONE (07:49)
[2023-05-21] MEDS ORDERED: diphenhydrAMINE 50 MG/ML VIAL ONE (07:49)
[2023-05-21] MEDS ORDERED: MIDAZOLAM HCL 5 MG/ML 1 ML VIAL ONE (07:50)
[2023-05-21] MEDS ORDERED: ceFAZolin 330 MG/ML 1 GM VIAL ONE (07:50)
[2023-05-21] MEDS ORDERED: fentaNYL citrate PF 100 MCG/2 ML VIAL ONE (07:50)
[2023-05-21] MEDS ORDERED: ONDANSETRON INJ 2 MG/ML 2 ML VIAL ONE (08:00)
--- NOTE | 2023-05-21 08:56 | Post Anesthesia Assessment ---
Date of Service May 21, 2023 Post Sedation Assessment Vital Signs Temp Pulse Pulse Resp BP BP Pulse Ox 05/21/23 03:32 37.1 C 60 17 121/57 L 93 05/20/23 22:50 59 L 05/20/23 23:44 36.6 C 55 L 17 109/45 L 94 05/20/23 20:00 05/20/23 19:38 36.8 C 62 18 134/71 95 05/20/23 16:47 36.7 C 61 18 113/49 L 93 05/20/23 14:40 05/20/23 11:35 36.6 C 62 18 128/71 95 O2 Del Method O2 Del Method 05/21/23 03:32 Room Air 05/20/23 22:50 05/20/23 23:44 Room Air 05/20/23 20:00 Room Air 05/20/23 19:38 Room Air 05/20/23 16:47 Room Air 05/20/23 14:40 Room Air 05/20/23 11:35 Room Air Recovery Score Activity: Moves 4 extremities Respiration: Deep Breath/Cough Circulation: +/-20% PreAnes Value Consciousness: Fully Awake Oxygen Saturation: > 92% On Room Air Discharge Sedation Level of Care: Fast Track Phase II Post Sedation Plan On clinical assessment, the patient appears to have tolerated the sedation w ithout complications. Patient is recovering as anticipated. Patient will continue to be monitored by nursing and may be discharged when sedation discharge criteria are met per below protocol. Upon Completions of procedure up to 15 minutes continue every 5 minute vital signs and the P.A.R. score; then discharge to a Phase I or Fast Track to Phase II per the following guidelines: * Discharge Patient to appropriate Phase II area if PAR is 8 or greater or return to pre- procedure baseline. The post - procedure orders will be as directed. * If PAR score is less than 8 or not return to pre-procedure baseline then patient will follow Phase I monitoring till PAR is reached for Phase II. The Phase I may be done in procedure room or may call to secure a Phase I area. * If naloxone or flumazenil are used for reversal, hold in Phase I for continued monitoring from when last reversal dose was given for a minimum of 60 minutes or longer pending the nurse and/or physician discretion of patient condition before discharge to Phase II. Please call the Sedation Physician to re-evaluate and complete post-note for discharge to Phase II area. Do NOT discharge from procedure sedation or Phase 1 until post- sedation evaluation note is complete by procedure /sedation MD Sedation Discharge Instructions to be given to the patient at discharge to home.
--- NOTE | 2023-05-21 08:57 | Operative Report ---
Post Operative Report Pre & Post Diagnosis SSS and intermittent CHB Operation Date: 05/21/23 08:00 <No data on this case meets the specified criteria> I identified the patient and participated in the time-out.: Yes Procedure Operation Date: 05/21/23 08:00 Actual Procedures p Pacer with A/V Leads (Dual) - Lorenza Parnell DO s Bundle of his Recording - Lorenza Parnell DO peripheral venogram Surgeon Lorenza Parnell, Song Lyricist none Estimated Blood Loss 100 Findings Consistent with Post-Op Diagnosis Specimens none Description of Procedure see official report I attest to the content of the Intraoperative Record and any orders documented therein. Any exceptions are noted below.
[2023-05-21] MEDS ORDERED: LANTUS PER UNIT CHARGE SC SCH ×2 (09:00→21:00)
--- NOTE | 2023-05-21 09:17 | Operative Report ---
Post Operative Report DICTATED BY:Lorenza Parnell D.O. DATE OF PROCEDURE: 04/23/2023. PREOPERATIVE DIAGNOSES: Sick sinus syndrome and intermittent CHB POSTOPERATIVE DIAGNOSIS: Same PROCEDURE: A dual-chamber rate responsive permanent pacemaker and intracardiac electrogram His bundle recordings, along with a peripheral venogram under fluoroscopic guidance. SURGEON: Lorenza Parnell DO ASSISTANTS: None. ANESTHESIA: Monitored conscious sedation administered under my supervision by Sofia Anguiano.. Start time 8:04, end time 8:55, a total of 5 mg of Versed and 100 mcg of fentanyl. INTRAVENOUS FLUIDS: 100 mL. CONTRAST: 15 mL. ANTIBIOTICS: 2 grams of Ancef. BLOOD LOSS: 100 mL. URINE OUTPUT: Not applicable. SPECIMENS: None. FINDINGS: See below. DRAINS: None. COMPLICATIONS: None. CONDITION: Stable. Additional Medications: 125mg solumedrol, 4mg zofran and 25mg benadryl INDICATIONS: This is a 73-year-old gentleman who has a past medical history for Due to his worsening syncope and intermittent CHB along with sick sinus syndrome, he was recommended a pacemaker prior to discharge. CONSENT: Consent was obtained prior to the patient going into the electrophysiology lab. The patient was informed of the risks, benefits, and alternatives to the procedure. Risks include, but not limited to, sudden cardiac , cardiac arrhythmias, cerebrovascular accident, myocardial infarction, injury to his blood vessels, chamber of the heart and lung, bleeding and infection. The patient understood these risks and agreed to the procedure as planned. Informed consent was obtained. DESCRIPTION OF PROCEDURE: The patient was brought into electrophysiology lab in a fasting state. He was connected to continuous cardiac monitoring. A timeout was performed to ensure the patient's identity and procedure correctly. He was prepped and draped in the left infraclavicular space in normal surgical standard fashion. Monitored conscious sedation was given throughout the procedure for the patient's comfort level. Brimfield precautions were maintained throughout the procedure. Prophylactic antibiotics were given prior to incision. A 20 mL of 1% lidocaine and bupivacaine mixture were given in the left deltopectoral groove. An incision was made in the left deltopectoral groove. Blunt dissection was performed down to the pectoralis muscle. Then, using blunt dissection over the pectoralis muscle within the pectoral fascia, a pacemaker pocket was created. Then, a peripheral venogram was performed to identify the axillary vein. Venous axillary access was obtained through a needlestick without any problems. A guidewire was inserted without any resistance. A 7-Bahraini sheath was inserted over the guidewire without any resistance. Dilator was removed and a second guidewire was inserted through the sheath to allow for retained venous access. The dilator was flushed and prepped back over a 7 Bahraini sheath, then we inserted over one of the guidewires. The guidewire and dilator were removed. Then, the His C315 sheath was inserted through the 7-Bahraini sheath over a Glidewire into the right ventricle. The Glidewire and dilator were removed. Then, the left bundle lead was advanced through the His C315 sheath and intracardiac electrogram His bundle recordings were performed when the camera was in GARCIA 10. Once I found where the His bundle is, see below for results, I then moved the camera to GARCIA 30 and marked where the His bundle was on my fluoroscopy screen. I came down about 2 cm from this in a line that would extend out to the apex and then started coming on pacing. Once I found an area where I had a nice W formed pace complex in my lead V1, I then moved the camera to KITTITIAN 30 and started giving a series of clockwise turns to screw the lead into the septum pausing once in a while to see how my pacing complex changed. Of note the first time the lead was probably microscopically through the septum. Once I developed a nice R prime, I then gave contrast through the sheath to see how far the lead was into the septum and then I slit the His C315 sheath under fluoroscopic guidance and left the 7-Bahraini sheath in while I positioned the right atrial lead. A second 7-Bahraini sheath was inserted over the retained guidewire, the guidewire and dilator removed. The right atrial lead was then advanced into right atrium and positioned into right atrial appendage under fluoroscopic guidance. There was adequate pacing and sensing thresholds and no diaphragmatic stimulation with high output pacing. The 7-Bahraini sheath was peeled away and the lead was fixated to the pectoralis muscle using 0 silk suture. The 7-Bahraini sheath around the left bundle lead was peeled away and the lead was fixated to pectoralis muscle using 0 silk suture. The pocket was flushed with copious amounts of vancomycin and saline wash and inspected for hemostasis. The pulse generator was then placed attached to the leads making sure the pins were in appropriate position, passed set screws, and set screws were all tightened. Pulse generator was then placed in the antibiotic pouch followed then by being placed in the pocket, making sure the leads were lying flat beneath the device. The incision was closed in a 3-layer fashion using 2-0 Vicryl interrupted suture, followed by 3-0 Vicryl interrupted suture, followed by 4-0 Monocryl running stitch. Dermabond was applied followed by Telfa and Tegaderm dressing. EQUIPMENT: 1. Pulse generator is a [employer] XT DR LUIZA Franco [id number], serial number [id number]. 2. Right atrial lead, Medtronic 5076-52 cm, serial number [id number]. 3. Left bundle lead, Medtronic 3830-69 cm, serial number [id number]. 4. Tyrx pouch Ref [id number]; Lot number [id number] INTRAPROCEDURAL FINDINGS: 1. Intracardiac electrogram His bundle recordings, AH is 93 milliseconds, HV is 97 milliseconds. 2. Right atrial lead, P waves 4.8 millivolts, impedance 509 ohms, threshold 0.4 volts at 0.5 milliseconds. 3. Left bundle lead, R waves 6.3 millivolts, impedance 913 ohms, threshold 0.5 volts at 0.5 milliseconds. FINAL MEASUREMENTS THROUGH THE DEVICE: 1. Right atrial lead, P waves 4.6 millivolts, impedance 456 ohms, threshold 0.5 volt at 0.4 milliseconds. 2. Left bundle lead, R waves 12 millivolts, impedance 722 ohms, threshold 0.5 volts at 0.4 milliseconds. FINAL PARAMETERS: MVP-R 60/130, right atrial amplitude 3.5 volts, pulse width 0.4 milliseconds, sensitivity 0.3 millivolts. Left bundle lead amplitude 3.5 volts, pulse width 0.4 milliseconds, sensitivity 1.2 millivolts. IMPRESSION: Successful dual chamber rate responsive permanent pacemaker under fluoroscopic guidance along with peripheral venogram and intracardiac electrogram His bundle recordings, all under fluoroscopic guidance secondary to syncope due to intermittent CHB and sick sinus syndrome. PLAN: Monitor the patient post-procedure. A 12-lead ECG, chest x-ray. Recheck the device in a few hours. He is not to lift the left elbow or left shoulder for 1 month. He cannot lift more than 10 pounds with the left arm for 2 weeks. He is to keep the dressing on and dry until his wound check next week. .
[2023-05-21] MEDS: INSULIN ASPART PER UNIT CHARGE SC SCH ×4 (09:51→21:49)
[2023-05-21] MEDS: FERROUS SULFATE 325 MG TAB PO SCH ×2 (09:53→20:47)
[2023-05-21] MEDS: ASPIRIN 81 MG ECTAB PO SCH (09:53)
[2023-05-21] MEDS: PANTOprazole 40 MG TAB PO SCH (09:54)
[2023-05-21] MEDS: CHOLECALCIFEROL 1,000 UNITS 25 MCG TAB PO SCH (09:54)
[2023-05-21] MEDS: allopurinoL 100 MG TAB PO SCH (09:54)
[2023-05-21] MEDS: FOLIC ACID 1 MG TAB PO SCH (09:54)
--- NOTE | 2023-05-21 11:22 | Cardiology Progress Note ---
Date of Service May 21, 2023 Assessment & Plan (1) Symptomatic bradycardia: (2) Paroxysmal atrial fibrillation: Plan: -Patient with history of recent recurrent syncope and near syncope episodes. 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 1 documented episode of postoperative atrial fibrillation after colectomy in 2021. He is on nadolol due to his history of hepatic cirrhosis with esophageal varices. -He presented with what I feel is third-degree AV block with junctional escape rhythm in the 30s yesterday, improved to his baseline EKG after receiving a dose of atropine. Currently hemodynamically stable. -Summary transthoracic echocardiogram performed 05/19/2023: Sinus bradycardia in the 50s present during the study. Mild concentric left ventricular hypertrophy is present, normal LV wall motion, LVEF in the range of 55-60%, trace mitral regurgitation, grade 1 diastolic dysfunction. Plan 05/20/2023 Plan as outlined above. 73-year-old male with underlying conduction system disease past history of syncope. Transient AV block on admitting EKGs Plan dual-chamber pacemaker in a.m. 05/21/23 Pt tolerated pacemaker well. Await post procedure CXR and interrogation. Remains in SR on telemetry. Add back nadolol, 20 mg daily to start. Will need to refer to his Epic chart to confirm if RN DOCUMENTATION SPECIALIST dose is 20 mg daily or two times per day. For now, once daily dosing seems reasonable to avoid low BP. Admission and Anticipated Discharge Date Admission Date: May 18, 2023 Subjective Pt seen in cardiology follow up. Denies chest discomfort. Tolerate dual chamber pacemaker implantation well. Physical Exam Constitutional: WD/WN, vitals as above Eyes: PERRL, conjunctivae normal, anicteric sclerae Respiratory: normal respiratory effort, lungs clear to auscultation Cardiovascular: RRR, no murmur, no edema Vessels: no JVD Chest (Breasts): Additional Comments: left infraclavicular pocket dressing in place. Gastrointestinal (Abdomen): normal bowel sounds, soft, nontender, no hepatosplenomegaly Neurologic: PERRL, EOMI, accommodation nl, no face palsy, no dysarthria Results & Data Vital Signs (Past 12 Hours) Vital Signs Temp Pulse Resp BP BP Pulse Ox O2 Del Method 05/21/23 10:45 36.6 C 63 16 131/70 Room Air 05/21/23 09:25 36.8 C 60 16 123/66 93 Room Air 05/21/23 10:15 36.4 C L 63 17 131/70 Room Air 05/21/23 09:50 36.7 C 60 16 122/66 92 Room Air 05/21/23 09:15 18 120/67 93 Room Air 05/21/23 09:00 18 122/68 93 Room Air 05/21/23 03:32 37.1 C 60 17 121/57 L 93 Room Air 05/20/23 23:44 36.6 C 55 L 17 109/45 L 94 Room Air Laboratory Results Comprehensive Metabolic Panel 05/21/23 Range/Units 06:02 Sodium 139 (136-145) mmol/L Potassium 4.2 (3.5-5.1) mmol/L Chloride 106 (98-107) mmol/L Carbon Dioxide 25 (21-32) mmol/L BUN 22 (6-23) mg/dl Creatinine 1.46 H D (0.6-1.4) mg/dl Glucose 144 H (70-99(Fasting)) mg/dl Calcium 8.8 (8.6-10.3) mg/dl Intake and Output 05/20/23 05/21/23 05/21/23 22:59 06:59 14:59 Intake Total 360 / 360 Output Total 400 / 1200 800 / 1200 Balance -40 / -840 -800 / -840 Intake: Oral 360 / 360 Output: Urine 400 / 1200 800 / 1200 Other: Weight 104 kg Weight Measurement Method Built in [facility]
--- NOTE | 2023-05-21 12:43 | XRay Report ---
XR chest 1V portable HISTORY: s/p pacemaker placement ensure no PTX COMPARISON: Chest 05/18/2023. FINDINGS: Interval placement of a left-sided dual-chamber pacemaker. The leads appear intact. No pneu mothorax. Left basilar linear densities favor subsegmental atelectasis. No evidence for pulmonary autumn ma. The right lung is clear. The heart remains mildly enlarged. Metallic anchors within the left rosalino ral head again noted. IMPRESSION: Interval placement of a left-sided dual-chamber pacemaker. No pneumothorax. ACT 112: Negative or not required by law. Electronically signed by: Remi Tee M.D. 05/21/2023 12:41 PM
[2023-05-21] MEDS: nadoloL 40 MG TAB PO SCH (12:48)
--- NOTE | 2023-05-21 13:08 | Pharmacy Report ---
Pharmacy Glycemic Short Note 2 - Date of Service May 21, 2023 - Glycemic Short BSG Results (Last 24 hours): 05/20/23 05/20/23 05/21/23 17:03 20:41 00:48 Glucose POC Glucose 169 H 162 H 130 H 05/21/23 05/21/23 05/21/23 06:02 07:38 11:49 Glucose 144 H POC Glucose 212 H 291 H OUTPATIENT ANTIDIABETIC REGIMEN: * Insulin glargine 60 units SC daily, 36 units SC HS * Empagliflozin 25 mg PO daily * Metformin 1000 mg PO BIDM * Semaglutide 1 mg SC weekly HbA1c: 8.7% (10/27/21), recheck pending ASSESSMENT: 05/21: * BSGs [phone]/dL the last 24h. Received 45 units of basal and 44 un its of bolus insulin yesterday. * Diet re-initiated this AM post pacemaker insertion. Other stressors stable. * Plan to titrate basal starting tonight given elevated fasting. Novolog tightened. 05/20/23: * BSGs yesterday of 174, 203, 98, and 157 mg/dL w/ fasting BSG this morning of 167 mg/dL * Received 70 units of insulin (40 units of basal and 30 units of bolus) * Patient is NPO after midnight on 05/21 for planned pacemaker 05/19/23: * HS is a 73 year old male w/ symptomatic bradycardia * Patient known to pharmacy glycemic consult service, will use past inpatient data to guide initial dosing * BSGs elevated on admission (386 mg/dL) and remain mildly elevated today, ranging 174-386 mg/dL over past 24 hours * Given continued uptrend at dinner, will tighten carb ratio today * Plan is likely for patient to have pacemaker placement on Saturday05/21/23 PLAN FOR INPATIENT GLYCEMIC CONTROL: * Hold outpatient oral diabetes medications * Basal insulin * Lantus 20 units AM/35 units PM * Bolus insulin * NovoLog per scale ACHS or Q6hrs while NPO * Goal Range: Low 110 mg/dL - High 140 mg/dL * Correction Factor: 15 mg/dL/unit * Nutritional / Prandial insulin per carb ratio of 1 unit per 5 grams CHO consumed
--- NOTE | 2023-05-21 15:34 | Hospitalist Progress Note ---
Date of Service May 21, 2023 Assessment & Plan (1) Symptomatic bradycardia: Plan Symptomatic bradycardia Dizziness Patient presents with dizziness, found to have heart rate in 30s and in A-fib, converted to sinus rhythm after a dose of atropine in the ED. Vitals currently stable, will get orthostatic vitals. Troponin 9.6. EKG with sinus rhythm with heart rate 66, first-degree AV block. Free from any symptoms at rest Nadolol has been on hold Heart rate went down to as low as 29 on monitor Appreciate cardiology input and recommendation for a pacemaker Remains medically stable Status post dual-chamber pacemaker implantation Remains stable following the procedure without any significant symptoms We will monitor overnight and likely discharge tomorrow Chronic elevation of LFT: OP chart review w/ chronic elevation of LFT. Likely secondary to heavy alcohol use in the past. Monitor. Patient denies use of alcohol in the last 3 years. We will recheck LFT tomorrow-LFTs are almost normal-bilirubin 1.7, AST 40 and alkaline phos 172 We will recheck CMP tomorrow T2DM complicated with polyneuropathy: Blood glucose elevated at presentation, get A1c in AM-8.5 Sliding scale insulin, glycemic pharmacy consult. Other chronic medical conditions: HTN, HLD, CKD stage III, MDD, panic disorder ----continue with/resume home meds as and when able. Remain stable DVT prophylaxis: Heparin subcu DNR/DNI Admission and Anticipated Discharge Date Admission Date: May 18, 2023 Subjective 05/19/2023 The patient was seen and examined in telemetry unit He denies any symptoms and noted to have bradycardia with a rate as low as 29 He will have pacemaker on Saturday05/20/2023 The patient was seen and examined in telemetry unit He did not have any more pauses or bradycardia Will have pacemaker placement tomorrow Denies any symptoms today 05/21/2023 The patient was seen and examined in telemetry unit He is a status post permanent pacemaker placement Denies any symptoms following the implantation We will observe today and likely discharge tomorrow Review of Systems Review of Systems: All systems reviewed and are unremarkable except as noted below Physical Exam Physical Exam: Sitting on a chair without any acute distress Constitutional: well developed, well nourished and + obese; not ill appearing Eyes: PERRL, conjunctivae normal, anicteric sclerae ENMT: external ear and nose normal, oropharynx normal Neck: trachea midline, no thyromegaly Respiratory: no respiratory distress Auscultation: lungs clear to auscultation bilaterally Cardiovascular: Rate/Rhythm: regular rate, regular rhythm and + bradycardic Heart Sounds: normal S1 and normal S2; no murmur Extremities: + edema (Trace to 1+ edema bilaterally) Gastrointestinal (Abdomen): Inspection/Auscultation: normal bowel sounds; abdomen not distended Percussion/Palpation: abdomen soft; abdomen nontender Neurologic: normal touch/pain/proprioception and moves all extremities; no focal motor deficits Psychiatric: A+Ox3, euthymic affect Lymphatic: no cervical or axillary lymphadenopathy Results & Data Results & Data Vital Signs (Past 12 Hours) Vital Signs Temp Pulse Resp BP BP Pulse Ox O2 Del Method 05/21/23 11:45 36.6 C 60 16 120/72 93 Room Air 05/21/23 10:45 36.6 C 63 16 131/70 Room Air 05/21/23 09:25 36.8 C 60 16 123/66 93 Room Air 05/21/23 10:15 36.4 C L 63 17 131/70 Room Air 05/21/23 09:50 36.7 C 60 16 122/66 92 Room Air 05/21/23 09:15 18 120/67 93 Room Air 05/21/23 09:00 18 122/68 93 Room Air 05/21/23 03:32 37.1 C 60 17 121/57 L 93 Room Air Laboratory Results [facility] 05/21/23 06:02 Sodium 139 Potassium 4.2 Chloride 106 Carbon Dioxide 25 BUN 22 Creatinine 1.46 H D Glucose 144 H Calcium 8.8 Medications Administered Current Inpatient Medications Acetaminophen (Acetaminophen 325 Mg Tab) 650 mg PO Q4H PRN PRN Reason: Pain or Fever Stop: 06/17/23 15:14 Al Hydrox/Mg Hydrox/Simethicone (Aluminum/Magnesium Susp 30 Ml Udc) 15 ml PO Q4H PRN PRN Reason: Dyspepsia Stop: 06/17/23 15:14 Albuterol (Albuterol Hfa 8 Gm Inhaler) 2 puffs INH TID PRN PRN Reason: shortness of breath or wheezin Stop: 06/17/23 15:41 Allopurinol (Allopurinol 100 Mg Tab) 100 mg PO QAM DEVIN Stop: 06/18/23 08:59 Last Admin: 05/21/23 09:54 Dose: 100 mg Aspirin (Aspirin 81 Mg Ectab) 81 mg PO QAM DEVIN Stop: 06/18/23 08:59 Last Admin: 05/21/23 09:53 Dose: 81 mg Dextrose (Dextrose 50% 50 Ml Syringe) 25 - 50 ml IV UD PRN; Protocol PRN Reason: Hypoglycemia Protocol Stop: 06/17/23 15:11 Ferrous Sulfate (Ferrous Sulfate 325 Mg Tab) 325 mg PO BID DEVIN Stop: 06/17/23 20:59 Last Admin: 05/21/23 09:53 Dose: 325 mg Folic Acid (Folic Acid 1 Mg Tab) 1 mg PO DAILY DEVIN Stop: 06/18/23 08:59 Last Admin: 05/21/23 09:54 Dose: 1 mg Glucagon (Glucagon For Inj 1 Mg Vial) 1 mg SQ UD PRN; Protocol PRN Reason: Hypoglycemia Protocol Stop: 06/17/23 15:11 Glucose (Glucose 10 Tab/Tube) 4 - 8 tab PO UD PRN; Protocol PRN Reason: Hypoglycemia Treatment Stop: 06/17/23 15:11 Glucose (Glucose 40% Gel 15 Gm Tube) 15 - 30 gm PO UD PRN; Protocol PRN Reason: Hypoglycemia Protocol Stop: 06/17/23 15:11 Insulin Aspart (Insulin Aspart Per Unit Charge) 0 units SC ACHS DEVIN Stop: 06/17/23 16:29 Last Admin: 05/21/23 12:44 Dose: 24 units Insulin Glargine (Lantus Per Unit Charge) 35 units SC HS [facility] Stop: 06/20/23 20:59 Magnesium Hydroxide (Magnesium Hydroxide Susp 30 Ml Udc) 30 ml PO Q12H PRN PRN Reason: Constipation Stop: 06/17/23 15:14 Miscellaneous (Carbohydrates For Hypoglycemia ) 15 - 30 gm PO UD PRN PRN Reason: Hypoglycemia Protocol Stop: 06/17/23 15:11 Miscellaneous Information (Pharmacy Glycemic Mgmt Consult) 1 each N/A UD PRN PRN Reason: Consult Stop: 06/17/23 15:11 Nadolol (Nadolol 40 Mg Tab) 20 mg PO QAM [facility] Stop: 06/20/23 11:29 Last Admin: 05/21/23 12:48 Dose: 20 mg Pantoprazole Sodium (Pantoprazole 40 Mg Tab) 40 mg PO DAILY [facility] Stop: 06/18/23 08:59 Last Admin: 05/21/23 09:54 Dose: 40 mg Simvastatin (Simvastatin 40 Mg Tab) 40 mg PO [facility] Stop: 06/17/23 20:59 Last Admin: 05/20/23 20:15 Dose: 40 mg Vitamin D (Cholecalciferol 1,000 Units 25 Mcg Tab) 1,000 units PO QA DEVIN Stop: 06/18/23 08:59 Last Admin: 05/21/23 09:54 Dose: 1,000 units
--- NOTE | 2023-05-21 18:44 | Electrocardiogram Report ---
Test Reason : Blood Pressure : / mmHG Vent. Rate : 055 BPM Atrial Rate : 055 BPM P-R Int : 238 ms QRS Dur : 124 ms QT Int : 502 ms P-R-T Axes : -11 -49 -19 degrees QTc Int : 480 ms Sinus bradycardia with 1st degree A-V block with Premature atrial complexes with Aberrant conduction Right bundle branch block Left anterior fascicular block Bifascicular block Voltage criteria for left ventricular hypertrophy Abnormal ECG When compared with ECG of 19-MAY-2023 06:31, No significant change was found Confirmed by Mac Cordero ([id number]) on 05/21/2023 6:44:06 PM Referred By: REFERRED SELF Confirmed By:Jaya Cordero
[2023-05-21] MEDS ORDERED: INSULIN HUMAN REGULAR PER UNIT 5 UNITS in SYRINGE 4.95 ML IV STA (20:21)
[2023-05-21] MEDS: SIMVASTATIN 40 MG TAB PO SCH (20:47)
[2023-05-22] MEDS ORDERED: INSULIN ASPART PER UNIT CHARGE SC SCH (02:00)
[2023-05-22 08:16] LABS: Albumin Globulin Ratio 1.3 (0.9-2); Albumin Level 3.6 gm/dl (3.4-5.0); BUN Creatinine Ratio 18.1 (10-20); Bilirubin,Total 1.5 mg/dl (0.2-1.0); Creatinine Clr Calc Pharmacy 46.4 ml/min; Est GFR (African American) 46.4 ml/min; Globulin 2.7 gm/dl (2.5-4.0); Magnesium 1.8 mg/dl (1.7-2.4); Potassium 4.5 mmol/L (3.5-5.1); Total Protein 6.3 gm/dl (6.0-8.3)
[2023-05-22] MEDS: FERROUS SULFATE 325 MG TAB PO SCH (08:31)
[2023-05-22] MEDS: nadoloL 40 MG TAB PO SCH (08:31)
[2023-05-22] MEDS: ASPIRIN 81 MG ECTAB PO SCH (08:31)
[2023-05-22] MEDS: FOLIC ACID 1 MG TAB PO SCH (08:31)
[2023-05-22] MEDS: PANTOprazole 40 MG TAB PO SCH (08:31)
[2023-05-22] MEDS: allopurinoL 100 MG TAB PO SCH (08:31)
[2023-05-22] MEDS: CHOLECALCIFEROL 1,000 UNITS 25 MCG TAB PO SCH ×2 (08:31→14:45)
[2023-05-22] MEDS: INSULIN ASPART PER UNIT CHARGE SC SCH ×2 (08:35→12:34)
--- NOTE | 2023-05-22 11:11 | Cardiology Progress Note ---
Date of Service May 22, 2023 Assessment & Plan (1) Symptomatic bradycardia: (2) Paroxysmal atrial fibrillation: (3) Status post cardiac pacemaker procedure: Plan Patient with chronic conduction system with first-degree AV block, right bundle branch block, left anterior fascicular block, and one documented episode of postoperative atrial fibrillation after colectomy in 2021. Recent recurrent near syncope and syncope episodes, presenting with third-degree AV block with junctional escape rhythm in the 30s, improving after atropine. Nadolol, prescribed 20 mg twice a day, due to his history of hepatic cirrhosis with esophageal varices, held. Status post 05/21/2023 left subclavian permanent pacemaker implantation without complications. Nadolol resumed at 20 mg once a day post device implantation. Outpatient wound check and device interrogation is being arranged at [facility] (lives in [facility]) Patient would like to establish an outpatient cardiology relationship with Dr. Do, initially evaluated by Dr. Hillman then Dr. Jacobs. Please contact with any questions or concerns. Admission and Anticipated Discharge Date Admission Date: May 18, 2023 Supervising Physician Co-Signing Physician Notes Supervising Physician Attestation: I have personally performed a history and physical examination on the patient. I agree with the physician res habilitation assistant's findings and plan as documented with the following additions. Subjective: Patient feeling well. Telemetry reveals sinus rhythm Exam: Cardiovascular regular rhythm, 1/6 systolic murmur, no edema Left infraclavicular pacer pocket dressing left in place Data: Chest x-ray performed 05/21/2023 revealed no pneumothorax Assessment and Plan: Symptomatic bradycardia causing syncope/near syncope in the setting of chronic trifascicular block (first-degree AV block, right bundle branch block, left anterior fascicular block) presented with transient high-grade AV block for which patient underwent dual-chamber [employer] permanent pacemaker -Patient stable for discharge. Outpatient pacemaker clinic appointment already requested. -Outpatient dose of nadolol is 20 mg twice daily, however given presentation for syncope, and ongoing borderline low blood pressure, recommend discharge on 20 mg 1 time per day for now and dose can be reassessed at time of follow-up. Luisito Do, DO Subjective Patient seen and examined. Chart, medications, and telemetry reviewed. Status post 05/21/2023 left subclavian pacemaker implantation by Dr. Zazzali. Post procedure CXR without pneumothorax. Telemetry: Atrial paced. No atrial fibrillation Denies pleuritic chest pain, shortness of breath, palpitations, cough, dizziness, lightheadedness, subjective fevers or chills. hospitalized downstairs Review of Systems Review of Systems: Complete review of systems is as stated above, negative, or noncontributory. Physical Exam 2 Physical Exam: General: A&Ox3. NAD. HENT: Normocephalic. Atraumatic. Eyes: PER. Conjunctiva pink, sclera clear. Neck: No carotid bruits. Heart: RRR. Soft early systolic murmur. No diastolic murmur. Lungs: Clear to auscultation. Abdomen: +BS. Soft. Nontender. No masses or organomegaly. Extremities: Thick, with lymphedematous changes. No pitting edema. No clubbing. No cyanosis. Limited neurological examination is without focal deficits. Pulses: radial=2/4, posterior tibial=2/4. Results & Data Vital Signs (Past 12 Hours) Vital Signs Temp Pulse Resp BP BP Pulse Ox O2 Del Method 05/22/23 07:38 36.5 C 60 19 105/55 L 95 Room Air 05/22/23 03:06 36.5 C 60 18 113/56 L 94 Room Air 05/21/23 23:29 36.6 C 60 18 108/53 L 93 Room Air Laboratory Results Cardiac Enzymes 05/22/23 Range/Units 07:21 AST 46 H (13-39) U/L Comprehensive Metabolic Panel 05/22/23 Range/Units 07:21 Sodium 136 (136-145) mmol/L Potassium 4.5 (3.5-5.1) mmol/L Chloride 105 (98-107) mmol/L Carbon Dioxide 23 (21-32) mmol/L BUN 30 H (6-23) mg/dl Creatinine 1.66 H (0.6-1.4) mg/dl Glucose 178 H (70-99(Fasting)) mg/dl Calcium 9.0 (8.6-10.3) mg/dl AST 46 H (13-39) U/L ALT 29 (7-52) U/L Alkaline Phosphatase 175 H (34-104) U/L Total Protein 6.3 (6.0-8.3) gm/dl Albumin 3.6 (3.4-5.0) gm/dl Intake and Output 05/21/23 05/22/23 05/22/23 22:59 06:59 14:59 Intake Total 1200 / 1680 Balance 1200 / 1680 Intake: Oral 1200 / 1680 Other: # Unmeasured Voids 1 Weight 104 kg Weight Measurement Method Built in [facility]
[2023-05-22] MEDS: LANTUS PER UNIT CHARGE SC SCH ×2 (12:33→14:46)
--- NOTE | 2023-05-22 13:39 | Discharge Summary ---
Date of Service May 22, 2023 Admission HPI Per Admitting Provider 73-year-old male with PMH of T2DM complicated with diabetic polyneuropathy, HLD, CKD stage III, MDD, panic disorder, CRC s/p resection [per patient] presented to the ED 05/18 with complaint of lightheadedness and weakness. Patient was visiting his who is here in the hospital, after getting out of the car he felt dizzy and lightheaded and needed to be wheelchaired. He continued to feel lightheaded and weak despite being on wheelchair and hence he was directed towards ED. He denies any changes in his appetite/bowel or bladder habits/any new complaints of cough/fever/chest pain/palpitations/sore throat/belly pain. Denies any febrile illness or flulike illness. Patient does report having similar lightheadedness and dizziness episodes few weeks ago at restaurant where he lost consciousness briefly but again then got better and did not seek any medical attention. He reports his lightheadedness has been getting worse lately. Per discussion with ER physician, in the ED patient with heart rate in 30s in A- fib/received a dose of atropine at 0.5 Mg/converted to sinus rhythm with heart rate in 50s to 60s. At bedside exam, patient reports feeling fine and back to his baseline. Denies any chest pain or palpitation or funny sensation or discomfort in the chest. Patient denies smoking tobacco/reports quitting alcohol 3 years ago/denies recreational drug use. CODE STATUSDNR/DNI as per my discussion with the patient. Medications reviewed with the patientpatient does not know much of his medication, hence medication review based on outpatient chart review. Plan of care discussed with the patient. We will continue with the pacer pads put in ED, monitor him in PCU telemetry, consult cardiology, fall precaution. Admission Exam Per Admitting Provider GENERAL: Alert and oriented x3. NAD, on RA. HEENT: No pallor, no icterus. Pupils equal, round and reactive to light. Oral mucosa moist. NECK: No JVD, no neck masses. HEART: S1 and S2 heard. Regular rate and rhythm. No murmur, no gallop. RESPIRATORY SYSTEM: Normal AP diameter. No accessory muscle use. No wheezing, no crackles. ABDOMEN: Soft, bowel sounds present, nontender, no distention. Old healed surgical midline scar. CENTRAL NERVOUS SYSTEM: No facial droop. Speech is clear. Obeys simple commands. Moves extremities. EXTREMITIES: No edema, no erythema seen. Principal Diagnosis Symptomatic bradycardia Chronic elevation of LFT Uncontrolled T2DM Discharge Exam GENERAL: Alert and oriented x3. NAD, on RA. HEENT: No pallor, no icterus. Pupils equal, round and reactive to light. Oral mucosa moist. NECK: No JVD, no neck masses. HEART: S1 and S2 heard. Regular rate and rhythm. No murmur, no gallop. RESPIRATORY SYSTEM: Normal AP diameter. No accessory muscle use. No wheezing, no crackles. ABDOMEN: Soft, bowel sounds present, nontender, no distention. Old healed surgical midline scar. CENTRAL NERVOUS SYSTEM: No facial droop. Speech is clear. Obeys simple commands. Moves extremities. EXTREMITIES: No edema, no erythema seen. Left arm in sling, left upper chest w/ clean dressing c/d/i. Discharge Data Allergies Allergy/AdvReac Type Severity Reaction Status Date / Time Iodinated Contrast Media AdvReac Intermediate Vomiting Verified 05/18/23 15:41 Consultations 05/18/23 14:29 ED Decision to Admit Stat 05/18/23 15:15 Consult Cardiology Routine Procedures Performed Operation Date: 05/21/23 08:00 Actual Procedures p Pacer with A/V Leads (Dual) - DO belen Zheng Bundle of his Recording - DO belen Zheng Venogram, Unilateral - Lorenza Parnell DO Ordered Studies 05/21/23 07:00 EP Lab Images for PACS ONCE Hospital Course (1) Symptomatic bradycardia: Plan Per prior attending with Addendum: Symptomatic bradycardia Dizziness Patient presents with dizziness, found to have heart rate in 30s and in A-fib, converted to sinus rhythm after a dose of atropine in the ED. Vitals currently stable, will get orthostatic vitals. Troponin 9.6. EKG with sinus rhythm with heart rate 66, first-degree AV block. Free from any symptoms at rest Nadolol has been on hold Heart rate went down to as low as 29 on monitor Appreciate cardiology input and recommendation for a pacemaker Remains medically stable Status post dual-chamber pacemaker implantation Remains stable following the procedure without any significant symptoms We will monitor overnight and likely discharge tomorrow Chronic elevation of LFT: OP chart review w/ chronic elevation of LFT. Likely secondary to heavy alcohol use in the past. Monitor. Patient denies use of alcohol in the last 3 years. We will recheck LFT tomorrow-LFTs are almost normal-bilirubin 1.7, AST 40 and alkaline phos 172 We will recheck CMP tomorrow T2DM complicated with polyneuropathy: Blood glucose elevated at presentation, get A1c in AM-8.5 Sliding scale insulin, glycemic pharmacy consult. Other chronic medical conditions: HTN, HLD, CKD stage III, MDD, panic disorder ----continue with/resume home meds as and when able. Remain stable DVT prophylaxis: Heparin subcu DNR/DNI ADDENDUM: Patient was seen and examined at bedside, underwent pacemaker placement 05/21 for symptomatic bradycardia, patient reports feeling better, discussed with cardiologyokay for discharge from the point of view. Patient with uncontrolled diabetes, patient advised to closely follow-up with diabetic clinic for ongoing management of his diabetes. Patient noted to be not very much aware of his diabetic medication, hence concern for compliance, his long- acting insulin has been made to once a day on discharge. He is being discharged with following instruction at the point of discharge: Follow-up with your primary care physician within a week time and likely you will need labs CBC/CMP/magnesium/phosphorus. For your symptomatic bradycardia you underwent dual-chamber pacemaker implantation this admission (05/21/23), follow-up with cardiology office 05/31. Your nadolol has been resumed at 20 mg daily. For your uncontrolled diabetes, recommend to closely follow-up with diabetic clinic upon discharge. You can use Lantus 60 units daily starting tomorrow morning. You will need further titration of your diabetic medication and hence close follow-up with the diabetic clinic. Take your medications as prescribed. Please make sure that you are able to get your medications today by calling your pharmacy before you leave the hospital so that your treatment continuity is not broken. Home Health Attestation I certify that this patient is under my care and that I, or a physicians clinical trial assistant working with me, had a face to-face encounter that meets the home health [id number] encounter requirements with this patient. The encounter with the patient was in whole, or in part, for the following medical condition, which is the primary reason for home health care (list medical condition): I certify that, based on my findings, the following services are medically necessary home health services: My clinical findings support the need for the above services because: Further, I certify that my clinical findings support that this patient is homebound (i.e. absences from home require considerable and taxing effort and are for medical reasons or mandaeism services or infrequently or of short duration when for other reasons) because: Certification for Home Health Services: Based on the above findings, I certify that this patient is confined to the home and needs intermittent fpc care, physical therapy and/or speech therapy or continues to need occupational therapy. The patient is under my care, and I have initiated the establishment of the plan of care. This patient will be followed by a physician who will periodically review the plan of care. Total Time Total Time Spent Total Time Spent (In Minutes): 45 Discharge Plan Discharge Items Patient Disposition: Home - Self-Care Reason For Visit: LIGHTHEADEDNESS Discharge Diagnosis: Symptomatic bradycardia Chronic elevation of LFT Uncontrolled T2DM Activity: As commented below Activity Comment: do not raise the left elbow over the left shoulder for 1 month Lifting: No more than 10 pounds Lifting Comment: do not lift more than 10 pounds with the left arm for 2 weeks Bathing: Keep incision dry Bathing Comment: keep dressing on & dry until wound check next week Driving/Machine Use: Resume 1 day after discharge Non-emergency contact: [facility] Tender Call non-emergency contact if: you have any medication questions, your symptoms worsen and your temperature is above 101 Follow-up/Referrals: Lorenza Parnell DO [Physician] - (The Cardiology office will contact you with an appointment.) Donovan Ruvalcaba, BATTERY ENGINEER-C [Primary Care Provider] - Diet: Carb Consistent or DM2 and Heart Healthy Addtl Attending Provider Instructions: Device and wound check at [facility] next thursday 05/31 they will call you with the appointment Addtl Proposal Editor Provider Instructions: Follow-up with your primary care physician within a week time and likely you will need labs CBC/CMP/magnesium/phosphorus. For your symptomatic bradycardia you underwent dual-chamber pacemaker implantation this admission (05/21/23), follow-up with cardiology office 05/31. Your nadolol has been resumed at 20 mg daily. For your uncontrolled diabetes, recommend to closely follow-up with diabetic clinic upon discharge. You can use Lantus 60 units daily starting tomorrow morning. You will need further titration of your diabetic medication and hence close follow-up with the diabetic clinic. Take your medications as prescribed. Please make sure that you are able to get your medications today by calling your pharmacy before you leave the hospital so that your treatment continuity is not broken. Pending Studies at Discharge: No Stand-Alone Forms: My [facility], Smoking Cessation Medications and DC Order Prescriptions: New nadolol 20 mg tablet 20 mg PO DAILY Qty: 30 0RF insulin glargine 100 unit/mL (3 mL) insulin pen 60 unit subcut DAILY Qty: 15 0RF Continued cholecalciferol (vitamin D3) 25 mcg (1,000 unit) capsule 25 mcg PO QAM Ozempic 1 mg/dose (4 mg/3 mL) pen injector 1 mg subcut WK allopurinol 100 mg tablet 100 mg PO QAM metformin 1,000 mg tablet 1,000 mg PO BID aspirin [Adult Low Dose Aspirin] 81 mg tablet,delayed release (DR/EC) 81 mg PO QAM albuterol sulfate 90 mcg/actuation HFA aerosol inhaler 2 puffs INH TID PRN (Reason: shortness of breath or wheezing) ferrous sulfate 325 mg (65 mg iron) Tablet 325 mg PO BID folic acid 1 mg Tablet 1 mg PO DAILY hydroxyzine HCl 25 mg Tablet 25 mg PO HS PRN (Reason: Itching) ascorbic acid (vitamin C) [Vitamin C] 500 mg Tablet Extended Release 250 mg PO DAILY empagliflozin 25 mg Tablet 25 mg PO QAM simvastatin 80 mg Tablet 40 mg PO HS acetaminophen 325 mg Tablet 650 mg PO Q6H PRN (Reason: mild pain) Qty: 30 0RF pantoprazole 40 mg tablet,delayed release (DR/EC) 40 mg PO DAILY Discontinued insulin glargine 100 unit/mL solution 48 unit subcut BID Patient Comments: 60 unit QAM and 36 UNITS IN THE EVENING nadolol 20 mg tablet 20 mg PO AMPM Discharge Orders: Discharge Order (Routine); Ordered 05/22/23 Ordered By: Britany Abbasi Admission Data Admit Date/Time: 05/18/23 15:14 Attending Provider: Britany Abbasi Admit Provider: Britany Abbasi Primary Care Provider: Donovan Ruvalcaba Other Providers: Britany Abbasi ; Luisito Do ; [facility]
--- NOTE | 2023-05-22 17:10 | Electrocardiogram Report ---
Test Reason : Blood Pressure : / mmHG Vent. Rate : 061 BPM Atrial Rate : 061 BPM P-R Int : 300 ms QRS Dur : 130 ms QT Int : 496 ms P-R-T Axes : 000 -50 -22 degrees QTc Int : 499 ms Atrial-paced rhythm with prolonged AV conduction Right bundle branch block Left anterior fascicular block Bifascicular block Voltage criteria for left ventricular hypertrophy Abnormal ECG When compared with ECG of 20-MAY-2023 06:02, Electronic atrial pacemaker has replaced Sinus rhythm Confirmed by Mac Cordero ([id number]) on 05/22/2023 5:10:09 PM Referred By: REFERRED SELF Confirmed By:Jaya Cordero
[2023-05-23] MEDS ORDERED: LANTUS PER UNIT CHARGE SC SCH (09:00)
== END 2023-05-22 16:28 | disposition home or self-care (01) | DRG 243 ==
LOC: ED 13:21 → SUATTDRO 15:14 → 4W 15:14

== ENCOUNTER 2024-09-14 13:24 | Inpatient (IN) ==
[2024-09-14 14:00] LABS: Appearance Urine Clear (Clear); Bilirubin Urine Negative (Negative); Blood Urine Negative (Negative); Color Urine Yellow; Glucose Urine UA 3+ (Negative); Ketones Urine Trace (Negative); Leukocyte Esterase Urine Negative (Negative); Nitrite Urine Negative (Negative); Protein Urine Negative (Negative); Urobilinogen Urine Negative (Negative); pH Urine 5.5 (4.5-7.5)
[2024-09-14 14:23] LABS: Amphetamines+Metham, Urine Neg (Neg); Barbiturates, Urine Neg (Neg); Benzodiazepine, Urine Neg (Neg); Cocaine, Urine Neg (Neg); Fentanyl, Urine Neg (Neg); MDMA (Ecstacy), Urine Neg (Neg); Marijuana, Urine Neg (Neg); Methadone, Urine Neg (Neg); Opiate, Urine Neg (Neg); Phencyclidine, Urine Neg (Neg)
--- NOTE | 2024-09-14 14:33 | Emergency Department Note ---
Impression & Plan Hyperglycemia, Suicidal ideation, Noncompliance with medications ED Provider Note NAME: RAMOS CLIFFORD AGE: 74 SEX: Male INFORMANT: Patient ED PROVIDER(S): Philipp Paulson MD CHIEF COMPLAINT: Mental health evaluation PLAN: Disposition: Admitted Outpatient prescription management: none Referral: None MEDICAL DECISION MAKING: Patient presented because of suicidal ideation. He was also medically noncompliant. Patient was found to be hypoglycemic. His head CT, EKG, and remainder of his blood work revealed no other acute abnormalities. Patient will need to be medically admitted. He was given IV insulin and hydrated. Patient has no evidence of DKA. Patient did require second dose of IV insulin. He was still hyperglycemic. He was improving. [facility] Case discussed and diagnostics were reviewed. Patient was evaluated and admitted for further management. Care/management discussed with: mobility architect manager, ED pharmacist Level of care consideration(s): After review of the information above and other included data, I feel the patient requires escalation of care to admission Triage Nursing notes: reviewed and agree them. Vital Signs: reviewed and remarkable for no significant abnormalities Additional History obtained from: none Chronic Medical/Social Conditions affecting care: Diabetes Prior/ Outside/ External records reviewed: none Differential Diagnosis: Infection, dehydration, metabolic abnormality, hypo/hyperglycemia, electrolyte disturbance, anemia, hypoxia, cardiac sources, intracerebral event, toxicologic, neurologic, psychiatric, as well as other pathologies. Diagnostics, independently interpreted by me: ECG: Twelve-lead ECG was sinus rhythm with first-degree AV block at 67 bpm. Right bundle branch block and left anterior fascicular block present. Poor R wave progression anteriorly. Septal T wave inversion present. The T wave inversions and poor progression are new compared to May 2023. Cardiac Monitoring: Cardiac monitoring ordered by me: The patient was placed on continuous cardiac monitoring and observed. It revealed a normal sinus rhythm at 78 beats per minute without ectopy or evidence of dysrhythmia. Medical decision rules: none Imaging studies: Head CT: A noncontrast CT scan of the head was performed and was negative for tumor, fracture, intracranial hemorrhage, or other acute pathology. Chest x-ray. Findings: A chest x-ray was performed and revealed no pneumothorax, effusion, infiltrate, free air under the diaphragm, or wide mediastinum. Cardiomegaly. Mild vascular congestion. HPI: 74 year old Male arrives for evaluation of mental health evaluation. Patient states over the last few months he has had worsening mood. He stopped taking his medications over a month or so ago. Patient has had high blood sugars. EMS was summoned from his primary clinic as the patient was expressing suicidal thoughts. Patient is requesting hospital admission. [facility] He notes multiple stressors including difficulty with his aging . Patient notes some mild swelling in his lower extremities. He notes frequent urination since his sugars have been high. Patient also notes occasional vomiting in the morning when he is hungry but it does not happen every day. Denies any abdominal pain. No medications given prehospital. Patient also notes falling and hitting the left side of his head last week. Denies any other injury. Pt denies LOC, headache, fevers, chills, diaphoresis, visual changes, neck pain, chest pain, breathing difficulties, abdominal pain, back pain, melena, hematochezia, urinary symptoms, numbness, focal weakness, lymphadenopathy, rash, or other complaints. PAST MEDICAL HISTORY: See Below, diabetes PAST SURGICAL HISTORY: See Below, SOCIAL HISTORY: See Below, HOME MEDICATIONS: See Below ALLERGIES: See Below VITALS: See Below PHYSICAL EXAMINATION: GENERAL: Awake, alert, depressed -appearing, in no distress HENT: Normocephalic, atraumatic. Oropharynx unremarkable. EYES: Normal conjunctiva. Sclera non-icteric.pupils equal and round. EOMI. NECK: Inspection normal. Non-tender. Supple. No nuchal rigidity. FROM. No masses. RESPIRATORY: Clear to auscultation. No wheezes. No rales. Normal respiratory effort. CARDIAC: Normal rate. Normal rhythm. No murmurs. No rubs. Extremities warm and well perfused. Pulses equal. No JVD. GI: Soft, non-distended. No tenderness to palpation. No rebound or guarding. No masses. RECTAL: Deferred. MUSCULOSKELETAL: Atraumatic. Chest examination reveals no tenderness. The back is symmetrical on inspection without obvious abnormality. There is no CVA tenderness to palpation. No joint edema. LOWER EXTREMITIES: Calves are equal size bilaterally and non-tender. 2+ edema. No discoloration. NEURO: Normal sensorium. No sensory or motor deficits noted. Cranial nerves II to XII intact. Speech normal. SKIN: No rash or jaundice noted. PROCEDURES: none CRITICAL CARE: none OBSERVATION NOTE: none Past Med/Surg History Problem List (Updated 09/14/24 @ 14:33 by Philipp Paulson MD) Noncompliance with medications (Acute) Suicidal ideation (Acute) Hyperglycemia (Acute) BPH loc w urin obs/LUTS Atrial fibrillation with slow ventricular response (Acute) Near syncope (Acute) Symptomatic bradycardia (Acute) Status post cardiac pacemaker procedure Symptomatic bradycardia Post-operative state Dyspnea on exertion (Chronic) Abnormal nuclear cardiac imaging test (Chronic) Right ureteral stone CT 12/17/19 Hx of knee surgery Nephrolithiasis CT 12/17/19 Encounter for pre-operative examination Colon cancer Anemia Obesity Encounter for pre-operative examination S/P colon resection (10/26/21) Laparoscopic Assisted Right Colon Resection, Umbilical Hernia Repair- Singh Ambrose MD, FACS 10/26/2021 Paroxysmal atrial fibrillation Hypomagnesemia Medical History Anemia BMI 34.0-34.9,adult Cancer COLON-REASON FOR SURGERY Chronic obstructive pulmonary disease LAST INHALER USE LAST WEEK CKD (chronic kidney disease) stage 3, GFR 30-59 ml/min Diabetes mellitus Dyslipidemia History of kidney stones History of pulmonary embolus (PE) REMOTE HX / LEG IN A A CAST - NO PROBLEMS SINCE Hypertension Neuropathy Obesity Sleep apnea CPAP/DOESN'T USE SOB (shortness of breath) on exertion 1 FLIGHT-"OUT OF SHAPE" Surgical History History of cholecystectomy History of colonoscopy 2020 History of esophagogastroduodenoscopy (EGD) (02/19/23) Dr. Baker History of total right knee replacement Hx of foot surgery LEFT HEEL Hx of repair of rotator cuff R&L S/P colon resection (10/26/21) Laparoscopic Assisted Right Colon Resection, Umbilical Hernia Repair- Singh Ambrose MD, FACS 10/26/2021 Status post laser lithotripsy of ureteral calculus 12/18/19 Family History Grandmother Diabetes Mother Breast cancer Sister Breast cancer Social History Smoking Status: Former smoker packs per day: 1; Second Hand Exposure: No; Do You Dip or Chew Tobacco: No; Hx Alcohol Use: No Hx Substance Use: No Preferred Language: Polish Communication Ability: Effective Nail Specialist Required: No Beliefs That Will Affect Care: None marital status: Current Living Situation: Spouse Current Living Situation Comment: house, states needs help current occupational status: retired How many Children do You have: 1 Feels Safe at Home: Yes during the past year weight has: remained stable Assistive Devices: Cane Allergies Allergies Allergy/AdvReac Type Severity Reaction Status Date / Time Iodinated Contrast Media AdvReac Intermediate Vomiting Verified 03/24/24 15:16 Home Meds Home Medications Medication Instructions Recorded Confirmed allopurinol 100 mg tablet 100 mg PO QAM 06/24/19 09/14/24 empagliflozin 25 mg tablet 25 mg PO QAM 10/19/21 09/14/24 semaglutide 1 mg/dose (4 mg/3 mL) 0.25 mg subcut WK 04/17/22 09/14/24 subcutaneous pen injector (Ozempic) ascorbic acid (vitamin C) 500 mg 250 mg PO DAILY 10/16/22 09/14/24 tablet,extended release (Vitamin C ER) ferrous sulfate 325 mg (65 mg 325 mg PO DAILY 10/16/22 09/14/24 iron) tablet atorvastatin 80 mg tablet 80 mg PO ONCE HS 01/27/24 09/14/24 glucose 4 gram chewable tablet 4 g PO Q15M PRN Hypoglycemia 01/27/24 09/14/24 escitalopram oxalate 5 mg tablet 15 mg PO DAILY 09/14/24 09/14/24 furosemide 20 mg tablet 40 mg PO QAM 09/14/24 09/14/24 insulin glargine 100 unit/mL (3 44 unit subcut BID 09/14/24 09/14/24 mL) subcutaneous pen pantoprazole 40 mg tablet,delayed 40 mg PO DAILY 09/14/24 09/14/24 release Previous Rx's Medication Instructions Recorded alfuzosin 10 mg tablet,extended 10 mg PO DAILY #90 tabs 03/24/24 release 24 hr Results & Data (ED) Vital Signs Vital Signs - 24 hr 09/14/24 15:51 09/14/24 16:00 09/14/24 16:06 Pulse Rate 77 Pulse Rate [Left Apical] 71 Respiratory Rate 19 16 Respiratory Effort / Characteristics Non-Labored Spontaneous Respiratory Depth Normal Respiratory Pattern Regular Blood Pressure 110/48 L Blood Pressure [Left Arm] 118/50 L Blood Pressure Mean 66 Blood Pressure Mean [Left Arm] 72 Blood Pressure Position [Left Arm] Semi-fowlers Pulse Oximetry 98 96 Oxygen Delivery Method Room Air Room Air 09/14/24 16:15 Pulse Rate 78 Pulse Rate [Left Apical] Respiratory Rate Respiratory Effort / Characteristics Respiratory Depth Respiratory Pattern Blood Pressure Blood Pressure [Left Arm] Blood Pressure Mean Blood Pressure Mean [Left Arm] Blood Pressure Position [Left Arm] Pulse Oximetry Oxygen Delivery Method Laboratory Data 09/15/24 03:47 09/15/24 03:47 Lab Results 09/14/24 09/14/24 Range/Units 13:45 14:10 WBC 4.97 (4.8-10.8) K/ul RBC 3.49 L (4.70-6.10) M/uL Hgb 8.3 L (14.0-18.0) g/dl Hct 26.3 L (42.0-52.0) % MCV 75.4 L (80.0-100.0) fL MCH 23.8 L (25.0-34.0) pg MCHC 31.6 L (32.0-36.0) g/dL RDW Std Deviation 40.2 (36.4-46.3) fL RDW Coeff of Rea 14.6 H (11.5-14.5) % Plt Count 112 L (130-400) K/uL MPV 9.9 (9.4-12.4) fL Immature Gran % (Auto) 0.6 % Neut % (Auto) 78.1 % Lymph % (Auto) 13.9 % Yell % (Auto) 5.0 % Eos % (Auto) 1.8 % Baso % (Auto) 0.6 % Neut # (Auto) 3.88 (1.40-6.50) K/uL Lymph # (Auto) 0.69 L (1.20-3.40) K/uL Yell # (Auto) 0.25 (0.11-0.59) K/uL Eos # (Auto) 0.09 (0.00-0.50) K/uL Baso # (Auto) 0.03 (0.00-0.20) K/uL Immature Gran # (Auto) 0.03 (0.01-0.20) K/uL Sodium 123 L (136-145) mmol/L Potassium 4.8 (3.5-5.1) mmol/L Chloride 89 L (98-107) mmol/L Carbon Dioxide 27 (21-32) mmol/L Anion Gap 7 (3-11) BUN 24 H (6-23) mg/dl Creatinine 1.31 (0.6-1.4) mg/dl Est Cr Clr Drug Dosing Not Reportable eGFR 56.76 BUN/Creatinine Ratio 18.3 (10-20) Glucose 745 H* (70-99(Fasting)) mg/dl Calcium 9.0 (8.6-10.3) mg/dl Total Bilirubin 2.2 H (0.2-1.0) mg/dl AST 34 (13-39) U/L ALT 32 (7-52) U/L Alkaline Phosphatase 160 H (34-104) U/L Troponin I High Sens 15.2 (0-20) pg/ml B-Natriuretic Peptide 101 H (0-100) pg/ml Total Protein 7.0 (6.0-8.3) gm/dl Albumin 3.6 (3.4-5.0) gm/dl Globulin 3.4 (2.5-4.0) gm/dl Albumin/Globulin Ratio 1.1 (0.9-2) TSH 1.759 (0.300-4.500) uIu/ml Urine Color Yellow Urine Appearance Clear (Clear) Urine pH 5.5 (4.5-7.5) Ur Specific [place] 1.030 (1.000-1.030) Urine Protein Negative (Negative) Urine Glucose (UA) 3+ H (Negative) Urine Ketones Trace H (Negative) Urine Blood Negative (Negative) Urine Nitrite Negative (Negative) Urine Bilirubin Negative (Negative) Urine Urobilinogen Negative (Negative) Ur Leukocyte Esterase Negative (Negative) Salicylates < 3.0 L (3.0-30) mg/dl Urine Opiates Screen Neg (Neg) Ur Methadone, Qual Neg (Neg) Urine Fentanyl Screen Neg (Neg) Acetaminophen < 3 L (10-30) ug/ml Urine Barbiturates Neg (Neg) Ur Phencyclidine (PCP) Neg (Neg) U Amphetamin/Meth Scrn Neg (Neg) MDMA (Ecstasy) Screen Neg (Neg) U Benzodiazepines Scrn Neg (Neg) Ur Cocaine Metabolite Neg (Neg) U Marijuana (THC) Screen Neg (Neg) Ethyl Alcohol mg/dL < 10.0 (<10.0) mg/dl SARS-CoV-2, RNA, NAAT NEGATIVE (NEGATIVE) Administered Medications Allopurinol (Allopurinol 100 Mg Tab) 100 mg PO QAM DEVIN Stop: 10/15/24 08:59 Last Admin: 09/15/24 08:22 Dose: 100 mg Documented By: JI Atorvastatin Calcium (Atorvastatin 40 Mg Tab) 80 mg PO HS DEVIN Stop: 10/14/24 20:59 Last Admin: 09/14/24 22:56 Dose: 80 mg Documented By: MALIK Enoxaparin Sodium (Enoxaparin Inj 40 Mg/0.4 Ml Syr) 40 mg SQ Q24H DEVIN Stop: 10/14/24 17:59 Last Admin: 09/14/24 20:16 Dose: Not Given Documented By: MALIK Escitalopram Oxalate (Escitalopram Oxalate 10 Mg Tab) 15 mg PO DAILY DEVIN Stop: 10/15/24 08:59 Last Admin: 09/15/24 08:21 Dose: 15 mg Documented By: JI Ferrous Sulfate (Ferrous Sulfate 325 Mg Tab) 325 mg PO DAILY DEVIN Stop: 10/15/24 08:59 Last Admin: 09/15/24 08:22 Dose: 325 mg Documented By: JI Furosemide (Furosemide 40 Mg Tab) 40 mg PO QAM [facility] Stop: 10/15/24 08:59 Last Admin: 09/15/24 08:22 Dose: 40 mg Documented By: JI Promethazine HCl (Phenergan) 6.25 mg in 50.25 mls @ 201 mls/hr IV Q6H PRN PRN Reason: Nausea And Vomiting Stop: 10/14/24 18:06 Last Infusion: 09/15/24 10:29 Dose: Infused Documented By: Admin: 09/15/24 09:08 Dose: 201 mls/hr Documented By: Infusion: 09/14/24 19:00 Dose: Infused Documented By: Admin: 09/14/24 18:30 Dose: 201 mls/hr Documented By: ANDREE Insulin Human Regular 250 (units/ Sodium Chloride) 250 mls @ 0 mls/hr IV .Q0M [facility]; Protocol Stop: 09/15/24 16:00 Last Titration: 09/15/24 12:08 Dose: 0 units/hr, 0 mls/hr Documented By: SRL Co-signed By: ARS Titration: 09/15/24 11:23 Dose: 5.2 units/hr, 5.2 mls/hr Documented By: ARS Co-signed By: SRL Titration: 09/15/24 10:17 Dose: 4.3 units/hr, 4.3 mls/hr Documented By: ARS Co-signed By: AM Titration: 09/15/24 07:37 Dose: 3.6 units/hr, 3.6 mls/hr Documented By: ARS Co-signed By: MR Titration: 09/15/24 06:05 Dose: 6 units/hr, 6 mls/hr Documented By: EMB Co-signed By: JT Titration: 09/15/24 05:05 Dose: 5 units/hr, 5 mls/hr Documented By: EMB Co-signed By: DLH Titration: 09/15/24 04:05 Dose: 5 units/hr, 5 mls/hr Documented By: EMB Co-signed By: JT Titration: 09/15/24 03:05 Dose: 5 units/hr, 5 mls/hr Documented By: MAR Co-signed By: EMB Titration: 09/15/24 02:05 Dose: 5 units/hr, 5 mls/hr Documented By: KLS Co-signed By: HJW Titration: 09/15/24 01:00 Dose: 5 units/hr, 5 mls/hr Documented By: KLS Co-signed By: SM Titration: 09/15/24 00:05 Dose: 6.2 units/hr, 6.2 mls/hr Documented By: KLS Co-signed By: JH Titration: 09/14/24 23:06 Dose: 6.2 units/hr, 6.2 mls/hr Documented By: MBL Co-signed By: KLS Titration: 09/14/24 22:08 Dose: 5.2 units/hr, 5.2 mls/hr Documented By: MBL Co-signed By: JT Titration: 09/14/24 21:00 Dose: 4.3 units/hr, 4.3 mls/hr Documented By: MBL Co-signed By: UGO Titration: 09/14/24 20:00 Dose: 3.6 units/hr, 3.6 mls/hr Documented By: MALIK Co-signed By: COLLEEN Admin: 09/14/24 18:57 Dose: 3 units/hr, 3 mls/hr Documented By: ANDREE Co-signed By: MALIK Insulin Aspart (Insulin Aspart Per Unit Charge) 0 units SC ACHS DEVIN Stop: 10/15/24 11:29 Last Admin: 09/15/24 12:44 Dose: 3 units Documented By: DIMITRI Co-signed By: JI Ondansetron HCl (Ondansetron Inj 2 Mg/Ml 2 Ml Vial) 4 mg IV Q4H PRN PRN Reason: Nausea Stop: 10/15/24 10:00 Last Admin: 09/15/24 10:43 Dose: 4 mg Documented By: JI Pantoprazole Sodium (Pantoprazole 40 Mg Tab) 40 mg PO DAILY DEVIN Stop: 10/15/24 08:59 Last Admin: 09/15/24 08:21 Dose: 40 mg Documented By: JI Tamsulosin HCl (Tamsulosin Hcl 0.4 Mg Cap) 0.4 mg PO DAILY DEVIN Stop: 10/15/24 08:59 Last Admin: 09/15/24 08:21 Dose: 0.4 mg Documented By: JI Discontinued Medications Sodium Chloride (Nss) 500 mls @ 999 mls/hr IV .Q31M ONE Stop: 09/14/24 16:03 Last Infusion: 09/14/24 16:49 Dose: Infused Documented By: Admin: 09/14/24 16:15 Dose: 999 mls/hr Documented By: JAMEY Promethazine HCl (Phenergan) 6.25 mg in 50.25 mls @ 201 mls/hr IV NOW STA Stop: 09/14/24 18:21 Last Admin: 09/14/24 18:31 Dose: Not Given Documented By: ANDREE Insulin Aspart (Insulin Aspart Per Unit Charge) 0 units SC ACHS DEVIN Stop: 10/14/24 18:29 Last Admin: 09/15/24 08:03 Dose: Not Given Documented By: Admin: 09/14/24 23:44 Dose: Not Given Documented By: Admin: 09/14/24 20:15 Dose: 6 units Documented By: MALIK Co-signed By: COLLEEN Insulin Glargine (Lantus Per Unit Charge) 60 units SC ONE ONE Stop: 09/15/24 08:01 Last Admin: 09/15/24 08:27 Dose: 60 units Documented By: JI Co-signed By: Insulin Human Regular (Novolin-R Insulin Per Unit Charge) 8 units IV NOW STA Stop: 09/14/24 15:34 Last Admin: 09/14/24 15:48 Dose: 8 units Documented By: JAMEY Co-signed By: CHAVA Insulin Human Regular (Novolin-R Insulin Per Unit Charge) 8 units IV NOW STA Stop: 09/14/24 16:58 Last Admin: 09/14/24 17:02 Dose: 8 units Documented By: JAMEY Co-signed By: MARKELL Pantoprazole Sodium (Pantoprazole 40 Mg Tab) Confirm Administered Dose 40 mg .ROUTE .STK-MED ONE Stop: 09/15/24 07:25 Last Admin: 09/15/24 08:21 Dose: Not Given Documented By: JI Imaging Data Radiologist's Impression: Chest X-Ray 09/14/24 14:05 XR chest 1V portable CLINICAL HISTORY: illness COMPARISON STUDY: Chest radiograph May 21, 2023. FINDINGS: Left subclavian pacer is in place. Cardiomegaly is unchanged. There is mild interstitial thickening. Minimal left basilar opacity favors atelectasis. There is no pneumothorax or pleural effusion. There are surgical anchors within the left humeral head. IMPRESSION: Cardiomegaly. Interstitial thickening which may reflect mild pulmonary edema. An infectious process could appear similar although is considered less likely. ACT 112: Negative or not required by law. Electronically signed by: Joshua Sinclair M.D. 09/14/2024 2:[address] 09/14/24 14:21 CT OF THE HEAD WITHOUT CONTRAST CLINICAL HISTORY: Fall. COMPARISON STUDY: No previous studies for comparison. CT DOSE: 625.8 mGy.cm TECHNIQUE: Helical axial images of the head were obtained without IV contrast. Automated exposure control was utilized for the study. A dose lowering technique was utilized adhering to the principles of ALARA. FINDINGS: No acute intracranial hemorrhage, midline shift or mass effect is present. Mild ventricular dilatation is likely due to central atrophy. White matter hypodense foci suggest small vessel disease. The basal cisterns are patent. No extra-axial collections are present. There are no findings to suggest acute dural sinus thrombosis or acute territorial infarct. No significant calvarial abnormalities are present. Visualized portions of the sinuses and mastoid air cells are clear. IMPRESSION: 1. No acute intracranial findings. 2. No calvarial fractures. ACT 112: Negative or not required by law. Electronically signed by: Joshua Sinclair M.D. 09/14/2024 3:47 PM Discharge Plan Visit Data Chief Complaint: Mental Health Evaluation Stated Complaint: 302 ED Provider: Philipp Paulson Discharge Problem: Hyperglycemia, Suicidal ideation, Noncompliance with medications Patient Disposition: Admitted As Inpatient Discharge Instructions Interventions: ED Discharge Assessment Last Done: 09/14/24 17:29
[2024-09-14 14:35] LABS: Basophils # (auto) 0.03 K/uL (0.00-0.20); Basophils % (auto) 0.6 %; Eosinophils # (auto) 0.09 K/uL (0.00-0.50); Eosinophils % (auto) 1.8 %; Hematocrit (blood only) 26.3 % (42.0-52.0); Hemoglobin 8.3 g/dl (14.0-18.0); Immature Granulocytes # (auto) 0.03 K/uL (0.01-0.20); Immature Granulocytes % (auto) 0.6 %; Lymphocytes # (auto) 0.69 K/uL (1.20-3.40); Lymphocytes % (auto) 13.9 %; Mean Corpuscular Hemoglobin 23.8 pg (25.0-34.0); Mean Corpuscular Hgb Conc 31.6 g/dL (32.0-36.0); Mean Corpuscular Volume 75.4 fL (80.0-100.0); Mean Platelet Volume 9.9 fL (9.4-12.4); Monocytes # (auto) 0.25 K/uL (0.11-0.59); Neutrophils # (auto) 3.88 K/uL (1.40-6.50); Neutrophils % (auto) 78.1 %; Platelet Count 112 K/uL (130-400); RDW Coefficient of Variation 14.6 % (11.5-14.5); RDW Standard Deviation 40.2 fL (36.4-46.3); Red Blood Count 3.49 M/uL (4.70-6.10); White Blood Count 4.97 K/ul (4.8-10.8)
--- NOTE | 2024-09-14 14:41 | XRay Report ---
XR chest 1V portable CLINICAL HISTORY: illness COMPARISON STUDY: Chest radiograph May 21, 2023. FINDINGS: Left subclavian pacer is in place. Cardiomegaly is unchanged. There is mild interstitial th ickening. Minimal left basilar opacity favors atelectasis. There is no pneumothorax or pleural effusi on. There are surgical anchors within the left humeral head. IMPRESSION: Cardiomegaly. Interstitial thickening which may reflect mild pulmonary edema. An infectio us process could appear similar although is considered less likely. ACT 112: Negative or not required by law. Electronically signed by: Joshua Sinclair M.D. 09/14/2024 2:40 PM
[2024-09-14 15:18] LABS: Acetaminophen < 3 ug/ml (10-30); Alanine Aminotransferase 32 U/L (7-52); Albumin Globulin Ratio 1.1 (0.9-2); Albumin Level 3.6 gm/dl (3.4-5.0); Alkaline Phosphatase 160 U/L (34-104); Anion Gap 7 (3-11); Aspartate Aminotransferase 34 U/L (13-39); BUN Creatinine Ratio 18.3 (10-20); Bilirubin,Total 2.2 mg/dl (0.2-1.0); Blood Urea Nitrogen 24 mg/dl (6-23); Carbon Dioxide 27 mmol/L (21-32); Chloride 89 mmol/L (98-107); Globulin 3.4 gm/dl (2.5-4.0); Glucose 745 mg/dl (70-99(Fasting)); Potassium 4.8 mmol/L (3.5-5.1); Salicylate < 3.0 mg/dl (3.0-30); Sodium 123 mmol/L (136-145); Thyroid Stimulating Hormone 1.759 uIu/ml (0.300-4.500); Troponin I High Sensitivity 15.2 pg/ml (0-20)
[2024-09-14] MEDS: NovoLIN-R INSULIN PER UNIT CHARGE IV STA ×2 (15:48→17:02)
--- NOTE | 2024-09-14 15:48 | CT Scan Report ---
CT OF THE HEAD WITHOUT CONTRAST CLINICAL HISTORY: Fall. COMPARISON STUDY: No previous studies for comparison. CT DOSE: 625.8 mGy.cm TECHNIQUE: Helical axial images of the head were obtained without IV contrast. Automated exposure con trol was utilized for the study. A dose lowering technique was utilized adhering to the principles o f ALARA. FINDINGS: No acute intracranial hemorrhage, midline shift or mass effect is present. Mild ventricular dilatation is likely due to central atrophy. White matter hypodense foci suggest small vessel diseas e. The basal cisterns are patent. No extra-axial collections are present. There are no findings to caicedo ggest acute dural sinus thrombosis or acute territorial infarct. No significant calvarial abnormaliti es are present. Visualized portions of the sinuses and mastoid air cells are clear. IMPRESSION: 1. No acute intracranial findings. 2. No calvarial fractures. ACT 112: Negative or not required by law. Electronically signed by: Joshua Sinclair M.D. 09/14/2024 3:47 PM
[2024-09-14] MEDS: SODIUM CHLORIDE 0.9% 500 ML IV ONE (16:15)
[2024-09-14] MEDS: Patient's HEIGHT &/or WEIGHT Needed STA (16:15)
--- NOTE | 2024-09-14 16:17 | Electrocardiogram Report ---
Test Reason : Blood Pressure : */* mmHG Vent. Rate : 67 BPM Atrial Rate : 67 BPM P-R Int : 280 ms QRS Dur : 140 ms QT Int : 442 ms P-R-T Axes : 2 -59 56 degrees QTcB Int : 467 ms Sinus rhythm with 1st degree A-V block Right bundle branch block Left anterior fascicular block Bifascicular block Minimal voltage criteria for LVH, may be normal variant ( R in aVL ) Septal infarct When compared with ECG of 21-May-2023 22:19, Significant changes have occurred Confirmed by Kodi Curry ([id number]) on 09/14/2024 4:17:13 PM Referred By: Confirmed By: Kodi Curry
[2024-09-14] MEDS ORDERED: DEXTROSE 50% 50 ML SYRINGE IV PRN (17:28)
[2024-09-14] MEDS ORDERED: GLUCOSE 40% GEL 15 GM TUBE PO PRN (17:28)
[2024-09-14] MEDS ORDERED: CARBOHYDRATES FOR HYPOGLYCEMIA PO PRN (17:28)
[2024-09-14] MEDS ORDERED: PHARMACY GLYCEMIC MGMT CONSULT PRN (17:28)
[2024-09-14] MEDS ORDERED: GLUCOSE 10 TAB/TUBE PO PRN (17:28)
[2024-09-14] MEDS ORDERED: INSULIN ASPART PER UNIT CHARGE SC SCH (17:28)
[2024-09-14] MEDS ORDERED: ACETAMINOPHEN 325 MG TAB PO PRN (17:28)
[2024-09-14] MEDS ORDERED: GLUCAGON FOR INJ 1 MG VIAL SQ PRN (17:28)
--- NOTE | 2024-09-14 17:53 | History & Physical Report ---
Date of Service September 14, 2024 Assessment & Plan (1) Suicidal ideation: (2) Hyperglycemia: Plan: 74-year-old male with history of major depressive disorder, panic disorder, sick sinus syndrome status post pacemaker, diabetes type 2 with polyneuropathy, hyper tension, CKD stage III presenting with suicidal ideation. Suicidal ideation History of major depressive disorder, panic disorder Usually on escitalopram, not taking recently due to feeling " overwhelmed " One-to-one observation Consult psychiatry service Hyperglycemia Diabetes type 2 Usually on empagliflozin, glargine, semaglutide Also not taking for the past few months Admitted with blood glucose 700s No anion gap, acidosis Received 8 units of insulin at the ER Blood glucose still remains in the 600s Primacy glycemic consult placed, will start insulin drip A1c ordered community educator ordered Sick sinus syndrome status post pacemaker No cardiac symptoms CHF, grade 1 diastolic dysfunction On Lasix 40 mg daily, questionable adherence to this medication Patient has bipedal edema, but no other overt signs of volume overload Continue p.o. Lasix 40 mg for now Last echo was May 2024 CKD stage III Stable BPH Patient reports urinary continence UA no signs of UTI Continue usual alfuzosin History of colon cancer, liver cirrhosis? Follow-up as an outpatient DVT prophylaxis Lovenox subcu daily Full code per patient Disposition Pending May need inpatient psych treatment Admission and Anticipated Discharge Date Admission Date: September 14, 2024 History of Present Illness Chief Complaint: Suicidal ideations Primary Care Provider: SNOW Ovalles 74-year-old male with history of major depressive disorder, panic disorder, sick sinus syndrome status post pacemaker, diabetes type 2 with polyneuropathy, hypertension, CKD stage III presenting with suicidal ideation. History obtained from ER physician and patient. Patient has not been taking his psychiatric medications and insulin for the past few months because he feels "overwhelmed ". He has been being worsening of mood and elevated blood sugar as a result of this. Today, patient was sent by primary care physician due to suicidal ideation. At the ER, patient received with stable vital signs. BSG found to be 745 No anion gap, no acidosis Patient given 8 units of insulin NovoLog. Hospitalist consulted for admission-mental health evaluation and hyperglycemia. On exam patient seen resting in bed, sitting up, comfortable, not in distress, oriented x 3, answering of questions appropriately, calm and cooperative. When asked if he is still having thoughts of suicidal ideations, patient reports " I do not have anything around here to use for it". Patient reassured that we are going to help him including psychiatry evaluation, and medical treatment. Patient verbalized understanding and agreement He denies headache, dizziness, sore throat, chest pain, cough, abdominal pain, nausea vomiting. He reports urinary incontinence but no dysuria No diarrhea Allergies Allergy/AdvReac Type Severity Reaction Status Date / Time Iodinated Contrast Media AdvReac Intermediate Vomiting Verified 03/24/24 15:16 Home Medications Medication Instructions Recorded Confirmed Type allopurinol 100 mg tablet 100 mg PO QAM 06/24/19 09/14/24 History empagliflozin 25 mg tablet 25 mg PO QAM 10/19/21 09/14/24 History semaglutide 1 mg/dose (4 mg/3 mL) 0.25 mg subcut WK 04/17/22 09/14/24 History subcutaneous pen injector (Ozempic) ascorbic acid (vitamin C) 500 mg 250 mg PO DAILY 10/16/22 09/14/24 History tablet,extended release (Vitamin C ER) ferrous sulfate 325 mg (65 mg 325 mg PO DAILY 10/16/22 09/14/24 History iron) tablet atorvastatin 80 mg tablet 80 mg PO ONCE HS 01/27/24 09/14/24 History glucose 4 gram chewable tablet 4 g PO Q15M PRN Hypoglycemia 01/27/24 09/14/24 History alfuzosin 10 mg tablet,extended 10 mg PO DAILY #90 tabs 03/24/24 09/14/24 Rx release 24 hr escitalopram oxalate 5 mg tablet 15 mg PO DAILY 09/14/24 09/14/24 History furosemide 20 mg tablet 40 mg PO QAM 09/14/24 09/14/24 History insulin glargine 100 unit/mL (3 44 unit subcut BID 09/14/24 09/14/24 History mL) subcutaneous pen pantoprazole 40 mg tablet,delayed 40 mg PO DAILY 09/14/24 09/14/24 History release Past Med/Surg History Problem List (Updated 09/14/24 @ 14:33 by Philipp Paulson MD) Noncompliance with medications (Acute) Suicidal ideation (Acute) Hyperglycemia (Acute) BPH loc w urin obs/LUTS Atrial fibrillation with slow ventricular response (Acute) Near syncope (Acute) Symptomatic bradycardia (Acute) Status post cardiac pacemaker procedure Symptomatic bradycardia Post-operative state Dyspnea on exertion (Chronic) Abnormal nuclear cardiac imaging test (Chronic) Right ureteral stone CT 12/17/19 Hx of knee surgery Nephrolithiasis CT 12/17/19 Encounter for pre-operative examination Colon cancer Anemia Obesity Encounter for pre-operative examination S/P colon resection (10/26/21) Laparoscopic Assisted Right Colon Resection, Umbilical Hernia Repair- Singh Ambrose MD, FACS 10/26/2021 Paroxysmal atrial fibrillation Hypomagnesemia Medical History Anemia BMI 34.0-34.9,adult Cancer COLON-REASON FOR SURGERY Chronic obstructive pulmonary disease LAST INHALER USE LAST WEEK CKD (chronic kidney disease) stage 3, GFR 30-59 ml/min Diabetes mellitus Dyslipidemia History of kidney stones History of pulmonary embolus (PE) REMOTE HX / LEG IN A A CAST - NO PROBLEMS SINCE Hypertension Neuropathy Obesity Sleep apnea CPAP/DOESN'T USE SOB (shortness of breath) on exertion 1 FLIGHT-"OUT OF SHAPE" Surgical History History of cholecystectomy History of colonoscopy 2020 History of esophagogastroduodenoscopy (EGD) (02/19/23) Dr. Baker History of total right knee replacement Hx of foot surgery LEFT HEEL Hx of repair of rotator cuff R&L S/P colon resection (10/26/21) Laparoscopic Assisted Right Colon Resection, Umbilical Hernia Repair- Singh Ambrose MD, FACS 10/26/2021 Status post laser lithotripsy of ureteral calculus 12/18/19 Family History Grandmother Diabetes Mother Breast cancer Sister Breast cancer Social History Smoking Status: Former smoker packs per day: 1; Second Hand Exposure: No; Do You Dip or Chew Tobacco: No; Hx Alcohol Use: No Hx Substance Use: No Preferred Language: Rwandan Communication Ability: Effective Cosmetic Counselor Required: No Beliefs That Will Affect Care: None marital status: Current Living Situation: Spouse current occupational status: retired How many Children do You have: 1 Feels Safe at Home: Yes during the past year weight has: remained stable Assistive Devices: Cane Review of Systems Review of Systems: all noted and negative except for above Physical Exam Physical Exam: General- oriented x 3, not in distress, speaks in sentences with no effort or accessory muscle use Head- atraumatic Eyes- PERRL, EOMI, anicteric ENT- oropharynx clear Neck- supple, no JVD, no adenopathy, no thyromegaly; carotids +2/2, no bruits appreciated Lungs- clear to auscultation bilaterally, no rales/wheezes Heart- normal rate, regular rhythm; no murmur, no gallop, no rub appreciated Abdomen- normal bowel sounds, nondistended, soft, nontender, no masses or hepatosplenomegaly Extremities- no pretibial edema, no calf tenderness; peripheral pulses intact Neuro- alert, oriented x 3; CN 2-12 grossly intact; motor 5/5 bilaterally;sensation 100% on all extremities; no other gross focal neurologic deficits Skin- warm & dry Psych- depressed affect but calm, cooperative Results & Data Results & Data Vital Signs (Past 12 Hours) Vital Signs Temp Pulse Pulse Resp BP BP Pulse Ox 09/14/24 17:21 72 15 09/14/24 17:12 73 16 09/14/24 17:06 70 18 09/14/24 17:00 127/67 09/14/24 16:57 71 13 09/14/24 16:54 71 16 09/14/24 16:42 75 17 09/14/24 16:24 75 18 99 09/14/24 16:15 78 09/14/24 16:06 77 16 96 09/14/24 16:00 110/48 L 09/14/24 15:51 71 19 118/50 L 98 09/14/24 13:15 36.6 C 71 18 128/67 95 O2 Del Method 09/14/24 17:21 09/14/24 17:12 09/14/24 17:06 09/14/24 17:00 09/14/24 16:57 09/14/24 16:54 09/14/24 16:42 09/14/24 16:24 Room Air 09/14/24 16:15 09/14/24 16:06 Room Air 09/14/24 16:00 09/14/24 15:51 Room Air 09/14/24 13:15 Room Air all noted and reviewed including below Code Status & VTE Plan VTE Prophylaxis Plan VTE Prophylaxis will be ordered: Yes
[2024-09-14] MEDS: PROMETHAZINE 6.25 MG/50.25 ML BAG IV PRN (18:30)
[2024-09-14] MEDS: PROMETHAZINE 6.25 MG/50.25 ML BAG IV STA (18:31)
[2024-09-14 18:32] LABS: BUN Creatinine Ratio 17.2 (10-20); Calcium 8.4 mg/dl (8.6-10.3); Creatinine Clr Calc Pharmacy 47.6 ml/min
[2024-09-14] MEDS: INSULIN REGULAR 250 UNITS in SODIUM CHLORIDE 0.9% 247.5 ML IV SCH (18:57)
--- OUTSIDE RECORDS SUMMARY | 2024-09-14 19:09 | External Medical Summary | Summary of Care ---
Author Name Unknown Organization [facility] Address [address] [place] [address] Phone [phone] Care Team Providers Care Shipping Coordinator Name Role Phone Donovan Ruvalcaba Primary Care Provide r Reason for Visit * Reason Onset Date Comments Preop Pt Assessment 08/27/2024 Encounter Details Date Type Department Care Team (Late st Contact Info) Description 08/27/2024 Telephone Pre Surgery Center, [facility] [address] [place] [id number] Sanjuana Baker MD [address] [place] [id number] Preop Pt Assessment Allergies Active Allergy Reactions Criticality Noted Date Comments Iodinated Contrast Media High 07/13/2021 MRI Other Reaction(s): Vomiting Quinolones Unknown 04/08/1998 ? yrs. ago? documented as of this encounter (statuses as of 09/03/2024) Medications ONE TOUCH LANCETS MISCIndications:D M type 2, not at goal ([facility]) as directed 100 5 2 Active ONE TOUCH STRP VIIndications:DM type 2, not at goal ([facility]) once daily 50 5 7 Active ASPIRIN 81 MG PO TABS daily Active allopurinol (ZYLOPRIM) 100 MG Tablet Take 1 Tablet by mouth in the morning. Active Insulin Syringe 30G X 1/2" 0.5 ML MISC Active Ferrous Sulfate 325 (65 Fe) MG Oral Tablet (Feosol) Take 1 Tablet by mouth daily with breakfast. Active Cholecalciferol 25 MCG (1000 UT) Oral Capsule Take 2 Capsules by mouth in the morning. Active Empagliflozin 25 MG Oral Tablet (Jardiance) Take 1 Tablet by mouth in the morning. 2 Active Ozempic (0.25 or 0.5 MG/DOSE) 2 MG/1.5ML Solution Pen-injector (Semaglutide(0.25 or 0.5MG/DOS)) Inject 0.25 mg under the skin once a week. Active hydrOXYzine HCl 10 MG Oral Tablet (Atarax) Take 1 Tablet by mouth at bedtime as needed for Itching or Other (sleep). Active Albuterol Sulfate HFA 108 (90 Base) MCG/ACT Inhalation Aerosol Solution Inhale 2 Puffs by mouth every 6 hours as needed. Active Vitamin C 500 MG Oral Tablet Chewable Take 0.5 Tablets by mouth in the morning. Active Pantoprazole Sodium 40 MG Oral Tablet Delayed Release (Protonix) Take 1 Tablet by mouth in the morning. 90 Tablet 3 3 Active Nadolol 20 MG Oral Tablet (Corgard) Take 1 Tablet by mouth in the morning. 180 Tablet 2 3 Active Alfuzosin HCl ER 10 MG Oral Tablet Extended Release 24 Hour (Uroxatral) Take 1 Tablet by mouth in the morning. Active Escitalopram Oxalate 10 MG Oral Tablet (Lexapro) Take 1 Tablet by mouth in the morning. Active Atorvastatin Calcium 80 MG Oral Tablet (Lipitor) Take 1 Tablet by mouth in the morning. Active Insulin Glargine 100 UNIT/ML Subcutaneous Solution (Lantus) Inject 44 Units under the skin in the morning and 44 Units before bedtime. Pen. Active Furosemide 20 MG Oral Tablet (Lasix) Take 2 Tablets by mouth in the morning. 180 Tablet 3 4 Active documented as of this encounter (statuses as of 09/03/2024) Active Problems Problem Noted Date Diagnosed Date Adjustment disorder with mixed anxiety and depre ssed mood 04/28/2024 Anemia 04/28/2024 Ankle edema 04/28/2024 Benign prostatic hyperplasia without urinary obs truction 04/28/2024 Overview (04/28/2024): Jan 06, 2008 Entered By: LASHELL WINCHESTER MD Comment: s/p negative biopsies 11/21 CHF (congestive heart failure) 04/28/2024 Chronic obstructive pulmonary disease 04/28/2024 Overview (04/28/2024): Aug 17, 2019 Entered By: LASHELL LIU PA-C Comment: minimal obstruction on pfts 07/2019 Cirrhosis of liver 04/28/2024 Overview (04/28/2024): Jun 13, 2023 Entered By: RAAD ORTIZ Comment: due to GARCES per GI Vertigo 04/28/2024 Overview (04/28/2024): May 25, 2014 Entered By: LASHELL WINCHESTER MD Comment: neg carotid dopplers and echo 01/01/14 Dyspnea, unspecified 04/28/2024 Dyspnea on exertion 04/28/2024 Overview (04/28/2024): Jun 22, 2019 Entered By: LASHELL LIU PA-C Comment: abnormal nuclear 2018 Entered By: LASHELL LIU PA-C Comment: no further cardiac testing per cardio 06/2019 SOB (shortness of breath) on exertion 04/28/2024 Fatty liver 04/28/2024 Functional visual loss 04/28/2024 History of cholecystectomy 04/28/2024 History of total right knee replacement 04/28/20 24 Hypomagnesemia 04/28/2024 Major depressive disorder, recurrent, moderate 0 04/28/2024 Malignant neoplasm 04/28/2024 Hypertension 04/28/2024 Nephrolithiasis 04/28/2024 Paroxysmal atrial fibrillation 04/28/2024 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 christen litus 04/28/2024 After cataract not obscuring vision 12/20/2020 Corneal endothelial dystrophy 07/01/2020 Renal colic on left side 06/30/2014 Overview (07/09/2014): admitted [facility], cystoscopy, ureteroscopy, lithrotripsy, with ureteral stent DYSLIPIDEMIA, GOAL LDL BELOW 100 09/05/2009 Overview (09/05/2009): Per Lipid Taxonomy. Type 2 diabetes mellitus wit h hemoglobin A1c goal of less than 7.0% 06/30/2009 Overview (01/10/2016): Modified per Diabetes protocol #14. ICD-10 update of inactive term Diabetic polyneuropathy 12/26/2004 Overview (12/02/2015): ICD-10 update of inactive term Major depressive disorder Overview (07/09/2017): ICD-10 update of inactive term Panic disorder Kidney disease, chronic, stage III (GFR 30-59 ml /min) documented as of this encounter (statuses as of 09/03/2024) Resolved Problems Problem Noted Date Diagnosed Date Resolved Date OBESITY, BMI 30-34 (SEE ACTUAL BMI) 12/08/2009 03/18/2014 Overview (12/08/2009): Per Obesity Taxonomy Chronic renal insufficiency 10/28/2006 03/18/2014 Overview (10/29/2006): 26/1.4 GFR 55.5 ADVANCE DIRECTIVE INFORMATION 09/04/2005 07/20/2024 Overview (09/04/2005): No, Advance Directive brochure given to patient at prior appointment. Dyslipidemia, goal to be determined 12/26/2004 09/05/2009 Overview (09/05/2009): Per Lipid Taxonomy. DM type 2, not at goal 04/20/200306/30 Overview (06/30/2009): Modified per Diabetes protocol #14. Obesity, BMI not known 12/08 Overview (12/08/2009): Per Obesity Taxonomy documented as of this encounter (statuses as of 09/03/2024) Immunizations Name Administration Dates Next Due Pneumococcal Polysaccharide PPV23 (Pneumovax) 03/29/2014 Seasonal Influenza, PF, 6 M & above, IM , (FluLaval or Fluzone) 07/09/2022 Seasonal Influenza, Quadriva lent Hd, 65+ Yrs 06/06/2023,07/03/2021,05/30/2020 documented as of this encounter Social History Tobacco Use Types Packs/Day Years Used Date Smoking Tobacco: Former Cigarettes 1 15 0 09/16/1963 - 09/16/1978 Smokeless Tobacco: Never Alcohol Use Standard Drinks/Week Comments No 0 (1 standard drink = 0.6 oz pur e alcohol) PHQ-2 Answer Date Recorded PHQ Adult Total Score 2 06/19/2024 Hunger Vital Sign Answer Date Recorded Within the past 12 months, y ou worried that your food would run out before you got the money to buy more. Never true 04/28/20 24 Within the past 12 months, t he food you bought just didn't last and you didn't have money to get more. Never true 04/28/2024 Childcare Answer Date Recorded Do you feel overwhelmed with taking care of a child, family member or friend? No 04/28/2024 Does your family need help f inding childcare? (Household - for ages 0-17 years) Not on file 04/28/2024 Clothing Answer Date Recorded Have you been unable to get clothing when it was really needed? No 04/28/2024 Is your family able to get c lothes or diapers when needed? (Household - for ages 0-17 years) Not on file 04/28/2024 Personal Safety Answer Date Recorded Do you feel unsafe or have concerns for your saf ety? No 04/28/2024 Do you have concerns for you r family's safety? (Household - for ages 0-17 years) Not on file 04/28/2024 Utilities Answer Date Recorded Do you have trouble paying y our heating, water, or electric bill? No 04/28/2024 Is your family able to pay t he heat, water, or electric bill? (Household - for ages 0-17 years) Not on file 04/28/2024 Does your family have access to good internet? (Household - for ages 0-17 years) Not on file 04/28/2024 Employment Status Answer Date Recorded Are you unemployed or without regular income? No 04/28/2024 Does the household have a re gular source of income? (Household - for ages 0-17 years) Not on file 04/28/2024 Social Connections Answer Date Recorded How often do you feel lonely or isolated from those around you? Sometimes 04/28/2024 Financial Resource Strain Answer Date R ecorded Do you have any trouble payi ng for your medications, or do you think you might in the future? No 04/28/2024 Does your family have troubl e paying for medicine? (Household - for ages 0-17 years) Not on file 04/28/2024 Transportation Needs Answer Date Record ed Do you have trouble getting a ride to medical visits or work? (Adult - for ages 18 years and over) Not on file 04/28/2024 Does your family have a hard time getting a ride to doctors visits? (Household - for ages 0-17 years) Not on file 04/28/2024 Has lack of transportation k ept you from medical appointments, meetings, work, or from getting things needed for daily living? Check all that apply. No 04/28/2024 Do you (or your family) have trouble finding or paying for a ride (transportation)? (Household - for ages 0-17 years) Not on file 04/28/2024 Housing Stability Answer Date Recorded Do you currently live in a s helter or have no steady place to sleep at night? No 04/28/2024 Do you think you are at risk of becoming homeless? (Adult - for ages 18 years and over) Not on file 04/28/2024 Does your family worry about paying for your home or becoming homeless? (Household - for ages 0-17 years) Not on file 0 04/28/2024 Are you homeless or worried that you might be in the future? No 04/28/2024 Are you (or your family) will eless or worried that you might be in the future? (Household - for ages 0-17 years) Not on file Food Insecurity Answer Date Recorded Do you need food for this week? No 04/28/2024 Are you able to get enough f ood for your family? (Household - for ages 0-17 years) Not on file 04/28/2024 Does your family need food t his week? (Household - for ages 0-17 years) Not on file 04/28/2024 Do you always have enough fo od for your family? (Household - for ages 0-17 years) Not on file 04/28/2024 Sex and Gender Information Value Date Recorded Sex Assigned at Not on file Legal Sex Male 5:24 AM EST Gender Identity Not on file Sexual Orientation Not on file Occupation Industry Job Start Date Job End Date [employer] Not on file Not on file Not on file documented as of this encounter Miscellaneous Notes * Telephone Encounter - Patsy Schwartz OSA - 09/03/2024 8:51 AM EST Tried calling pt at all 3 numbers listed. Unable to contact. Pt is cx'd OLE Garrido 09/03/2024 8:51 AM * Telephone Encounter - Lauren Bragg RN - 09/01/2024 10:54 AM EST I've tried to reach this pt since last week. Cell is constantly busy and work # does not ring. I will need a working ph number-TY documented in this encounter Plan of Treatment Upcoming Encounters Date Type Department Care Team (Latest Contact Info) Description 09/04/2024 9:30 AM EST Hospital Encounter ENDO [facility], Endoscopy Room [facility] [address] [place] [phone] Sanjuana Baker MD [address] [place] [address] 09/04/2024 9:30 AM EST - 09/04/2024 10:00 AM EST Surgery ENDO [facility], Endoscopy Room [facility] [address] [place] [phone] Sanjuana Baker MD [address] [place] [address] ESOPHAGOGASTRODUODENOSCOPY (EGD), FLEXIBLE, TRANSORAL, DIAGNOSTIC 10/13/2024 12:00 PM EST Office Visit [facility]olog y, [facility] [address] [facility] [address] Viridiana Ortiz CRNP [address] [facility] [address] 10/13/2024 3:00 PM EST Laboratory Laboratory [facility] [address] [place] [phone] [place], Lab [facility] [address] [place] [address] 10/13/2024 4:00 PM EST Office Visit Hematology/Onco logy [facility] [address] [place] [phone] Bette Ortiz CRNP [address] [place] [address] 11/12/2024 1:30 PM EST Office Visit Cardiology, [facility] [address] [facility] [address] Elisa Jay PA-C [address] [facility] [address] [address] Scheduled Procedures Name Priority Associated Diagnoses Date/Ti wi ESOPHAGOGASTRODUODENOSCOPY ( EGD), FLEXIBLE, TRANSORAL, DIAGNOSTIC Esophageal varices (HCC) 09/04/2024 9:30 AM EST Health Maintenance Due Date Last Done Comments CKD PHOS USE SMARTSET 60281 1967 DTap/Tdap Vaccines (1 - Tdap) 01/22/1968 Albumin/Creatinine Ratio 01/18/2010 009, 10/28/2006, 04/26/2006, Additional history exists Diabetic Foot Exam 03/18/2015 03/18/2014, 0 01/18/2009, 05/22/2007 HbA1c 11/26/2023 05/28/2023, 080 09/2022, 09/18/2007, Additional history exists *COPD SEVERITY VERIFIED BY PFT 04/30/2024 COVID-19 Vaccine ( season) 2024 Influenza Vaccine (FLU shot) (#1) 2024 06/06/2023, 07/09/2022, 07/03/2021, Additional history exists GFR 10/14/2024 04/13/2024, 09/17, 07/22/2023, Additional history exists Diabetic Eye Exam 12/16/2024 12/17/2023, 07/19/2007 O2 ASSESSMENT COMPLETED IN PAST YEAR FOR COPD 03/17/2025 03/17/2024 CKD HGB USE SMARTSET 56523 04/13/202504/13, 04/13/2024, 10/14/2023, Additional history exists Depression Monitoring 06/19/2025 06/19/2024 Colonoscopy 07/24/2026 07/24/2021, 04/2021, 09/15/2018, Additional history exists Pneumococcal Vaccine: 65+ Years Completed 05/29/2017, 05/24/2016, 03/29/2014 Hepatitis B Vaccine Completed 10/12/2019, 05/19/2019, 04/15/2019 RETIRED - COLONOSCOPY-EVERY 5 YRS AGES 18-100 Discontinued 07/24/2021, 07/24/2021, 09/15/2018, Additional history exists Zoster Vaccines Completed 09/11/2021, 04/16, 08/05/2012 Alpha-1 Antitrypsin Completed 02/08/2022, HPV (Gardasil) Vaccine Aged Out No lo nger eligible based on patient's age to complete this topic MENINGOCOCCAL (MENACTRA/MENVEO) Aged Out No longer eligible based on patient's age to complete this topic documented as of this encounter Medical Devices Not on filedocumented as of this encounter Care Teams Shipping Coordinator Relationship Specialty Start Date End Date Donovan Ruvalcaba CRNP [address] [place] [address] PCP - General Nurse Practitioner 03/20/24 documented as of this encounter
--- OUTSIDE RECORDS SUMMARY | 2024-09-14 19:10 | External Medical Summary | Summary of Care ---
Author Name Unknown Organization [facility] Address [address] [place] [address] Phone [phone] Care Team Providers Care Hebrew Teacher Name Role Phone Donovan Ruvalcaba Primary Care Provide r Reason for Visit * Reason Onset Date Comments Referral 06/02/2024 Encounter Details Date Type Department Care Team (Late st Contact Info) Description 06/02/2024 Telephone Gastroenterology, [facility] [address] [facility] [place] [address] Specified, [place] No Resource [address] [place] [address] Referral Allergies Active Allergy Reactions Criticality Noted Date Comments Iodinated Contrast Media High 07/13/2021 MRI Other Reaction(s): Vomiting Quinolones Unknown 04/08/1998 ? yrs. ago? documented as of this encounter (statuses as of 09/01/2024) Medications ONE TOUCH LANCETS MISCIndications:D M type 2, not at goal ([facility]) as directed 100 5 2 Active ONE TOUCH STRP VIIndications:DM type 2, not at goal ([facility]) once daily 50 5 7 Active ASPIRIN [...] as of this encounter (statuses as of 09/01/2024) Active Problems Problem Noted Date Diagnosed Date [...] History of total right knee replacement 04/28/20 Hypomagnesemia 04/28/2024 Major depressive disorder, recurrent, moderate 0 04/28/2024 Malignant neoplasm 04/28/2024 Hypertension 04/28/2024 Nephrolithiasis 04/28/2024 Paroxysmal atrial fibrillation 04/28/2024 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 christen litus 04/28/2024 After cataract not obscuring vision 12/20/2020 Corneal endothelial dystrophy 07/01/2020 Renal colic on left side 06/30/2014 Overview (07/09/2014): admitted [facility], cystoscopy, ureteroscopy, lithrotripsy, with ureteral stent DYSLIPIDEMIA, [...] as of this encounter (statuses as of 09/01/2024) Resolved Problems Problem Noted Date Diagnosed Date [...] as of this encounter (statuses as of 09/01/2024) Immunizations Name Administration Dates Next Due Pneumococcal Polysaccharide PPV23 (Pneumovax) 03/29/2014 Seasonal Influenza, PF, 6 M & above, IM , (FluLaval or Fluzone) 07/09/2022 Seasonal Influenza, Quadriva anilt Hd, 65+ Yrs 06/06/2023,07/03/2021,05/30/2020 documented as of [...] 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 documented in this encounter Plan of Treatment Upcoming Encounters Date Type Department Care Team (Latest Contact Info) Description 09/04/2024 9:30 AM EST Hospital Encounter ENDO OSS[facility], Endoscopy Room [facility] [address] [place] [phone] Sanjuana Baker MD [address] [place] [address] 09/04/2024 9:30 AM EST - 09/04/2024 10:00 AM EST Surgery ENDO O[facility], Endoscopy Room [facility] [address] [place] [phone] Sanjuana Baker MD [address] [place] [address] ESOPHAGOGASTRODUODENOSCOPY (EGD), FLEXIBLE, TRANSORAL, DIAGNOSTIC 10/13/2024 12:00 PM EST Office Visit Gastroenterolog y, [facility] [address] [place] [address] Viridiana Ortiz CRNP [address] [address] 10/13/2024 3:00 PM EST Laboratory Laboratory [facility] [address] [place] [phone] Marquis [address] [place] [address] 10/13/2024 4:00 PM EST Office Visit Hematology/Onco logy [facility] [address] [place], [place] [phone] Bette Ortiz CRNP [address] [facility] [place] [address] 11/12/2024 1:30 PM EST Office Visit Cardiology, [facility] 132 [facility] [address] [place] [address] Elisa Jay PA-C [address] [place] [address] Scheduled Procedures Name Priority Associated Diagnoses Date/Ti me ESOPHAGOGASTRODUODENOSCOPY ( EGD), FLEXIBLE, TRANSORAL, DIAGNOSTIC Esophageal varices (HCC) 09/04/2024 9:30 AM EST Health Maintenance Due Date Last Done Comments CKD PHOS USE SMARTSET 79513 1967 DTap/Tdap Vaccines (1 - Tdap) 01/22/1968 Albumin/Creatinine Ratio 01/18/2010 009, 10/28/2006, 04/26/2006, Additional history exists Diabetic Foot Exam 03/18/2015 03/18/2014, 0 01/18/2009, 05/22/2007 HbA1c 11/26/2023 05/28/2023, 08/09/2022, 09/18/2007, Additional history exists *COPD SEVERITY VERIFIED BY PFT 04/30/2024 COVID-19 Vaccine ( season) 2024 Influenza Vaccine (FLU shot) (#1) 2024 06/06/2023, 07/09/2022, 07/03/2021, Additional history exists GFR 10/14/2024 04/13/2024, 09/17, 07/22/2023, Additional history exists Diabetic Eye Exam 12/16/2024 12/17/2023, 07/19/2007 O2 ASSESSMENT COMPLETED IN PAST YEAR FOR COPD 03/17/2025 03/17/2024 CKD HGB USE SMARTSET 34085 04/13/202504/13, 04/13/2024, 10/14/2023, Additional history exists Depression [...] filedocumented as of this encounter Care Teams Hebrew Teacher Relationship Specialty Start Date End Date Donovan Ruvalcaba CRNP [address] [place] [address] PCP - General Nurse Practitioner 03/20/24 documented as of this encounter
--- OUTSIDE RECORDS SUMMARY | 2024-09-14 19:10 | External Medical Summary | Summary of Care ---
Author Name Unknown Organization [facility] Address [address] [facility] [address] Phone [phone] Care Team Providers Care Crew Leader Gluing Name Role Phone Donovan Ruvalcaba Primary Care Provide r Reason for Visit * Reason Onset Date Comments Preop Pt Assessment 08/27/2024 Encounter Details Date Type Department Care Team (Late st Contact Info) Description 08/27/2024 Telephone Pre Surgery Center, [facility] [address] [employer] [address] [place] [address] Sanjuana Baker MD [address] [place] [address] Preop Pt Assessment Allergies Active Allergy Reactions Criticality Noted Date Comments Iodinated Contrast Media High 07/13/2021 MRI Other Reaction(s): Vomiting Quinolones Unknown 04/08/1998 ? yrs. ago? documented as of this encounter (statuses as of 09/02/2024) Medications ONE TOUCH LANCETS MISCIndications:D M type 2, not at goal ([facility]) as directed 100 5 2 Active ONE TOUCH STRP VIIndications:DM type 2, not at goal ([facility]) once daily 50 5 7 Active ASPIRIN [...] as of this encounter (statuses as of 09/02/2024) Active Problems Problem Noted Date Diagnosed Date [...] on left side 06/30/2014 Overview (07/09/2014): admitted [facility], cystoscopy, ureteroscopy, lithrotripsy, with ureteral stent DYSLIPIDEMIA, [...] as of this encounter (statuses as of 09/02/2024) Resolved Problems Problem Noted Date Diagnosed Date [...] as of this encounter (statuses as of 09/02/2024) Immunizations Name Administration Dates Next Due Pneumococcal [...] Industry Job Start Date Job End Date [employer] Not on file Not on file Not on file documented as of this encounter Miscellaneous Notes * Telephone Encounter - Lauren Bragg, RN - 09/01/2024 10:54 AM EST I've tried to reach this pt since last week. Cell is constantly busy and work # does not ring. I will need a working ph number-TY documented in this encounter Plan of Treatment Upcoming Encounters Date Type Department Care Team (Latest Contact Info) Description 09/04/2024 9:30 AM EST Hospital Encounter ENDO [facility], Endoscopy Room [facility] [address] [place] [phone] Sanjuana Baker MD [address] [place] [address] 09/04/2024 9:30 AM EST - 09/04/2024 10:00 AM EST Surgery ENDO [facility], Endoscopy Room [facility] [address] [place] [phone] Sanjuana Baker MD [address] [place] [address] ESOPHAGOGASTRODUODENOSCOPY (EGD), FLEXIBLE, TRANSORAL, DIAGNOSTIC 10/13/2024 12:00 PM EST Office Visit Gastroenterolog y, [facility] [address] [place] [address] Viridiana Ortiz CRNP [address] [place] [address] 10/13/2024 3:00 PM EST Laboratory Laboratory [facility] [address] [place], [place] [address] [facility] [address] [facility] [place] [address] 10/13/2024 4:00 PM EST Office Visit Hematology/Onco logy [facility] [address] [place] [phone] Bette Ortiz CRNP 400 [facility] [place] [address] 11/12/2024 1:30 PM EST Office Visit Cardiology, [facility] 132 [facility] [place] [address] Elisa Jay PA-C [facility] [phone] Scheduled Procedures Name Priority Associated Diagnoses Date/Ti me ESOPHAGOGASTRODUODENOSCOPY ( EGD), FLEXIBLE, TRANSORAL, DIAGNOSTIC Esophageal varices (HCC) 09/04/2024 9:30 AM EST Health Maintenance Due Date Last Done Comments CKD PHOS USE SMARTSET 22200 1967 DTap/Tdap Vaccines (1 - Tdap) 01/22/1968 Albumin/Creatinine Ratio 01/18/2010 009, 10/28/2006, 04/26/2006, Additional history exists Diabetic Foot Exam 03/18/2015 03/18/2014, 0 01/18/2009, 05/22/2007 HbA1c 11/26/2023 05/28/2023, 08/0 09/2022, 09/18/2007, Additional history exists *COPD SEVERITY VERIFIED BY PFT 04/30/2024 COVID-19 Vaccine ( season) 2024 Influenza Vaccine (FLU shot) (#1) 2024 06/06/2023, 07/09/2022, 07/03/2021, Additional history exists GFR 10/14/2024 04/13/2024, 09/17, 07/22/2023, Additional history exists Diabetic Eye Exam 12/16/2024 12/17/2023, 07/19/2007 O2 ASSESSMENT COMPLETED IN PAST YEAR FOR COPD 03/17/2025 03/17/2024 CKD HGB USE SMARTSET 23658 04/13/202504/13, 04/13/2024, 10/14/2023, Additional history exists Depression [...] filedocumented as of this encounter Care Teams Crew Leader Gluing Relationship Specialty Start Date End Date Donovan Ruvalcaba CRNP [address] [place] [address] PCP - General Nurse Practitioner 03/20/24 documented as of this encounter
--- OUTSIDE RECORDS SUMMARY | 2024-09-14 19:10 | External Medical Summary | Summary of Care ---
Author Name Unknown Organization [facility] Address [address] [place] [address] Phone [phone] Care Team Providers Care Insurance Salesperson Name Role Phone Donovan Ruvalcaba Primary Care Provide r Encounter Details Date Type Department Care Team (Late st Contact Info) Description 08/20/2024 Result Scan Unspecified Department Lorenza Parnell, DO [address] [facility] [address] [address] [address] <No scans attached> Allergies Active Allergy Reactions Criticality Noted Date Comments Iodinated Contrast Media High 07/13/2021 MRI Other Reaction(s): Vomiting Quinolones Unknown 04/08/1998 ? yrs. ago? documented as of this encounter (statuses as of 08/20/2024) Medications ONE TOUCH LANCETS MISCIndications:D M type 2, not at goal (HCC) as directed 100 5 2 Active ONE TOUCH STRP VIIndications:DM type 2, not at goal (HCC) once daily 50 5 7 Active ASPIRIN [...] as of this encounter (statuses as of 08/20/2024) Active Problems Problem Noted Date Diagnosed Date [...] on left side 06/30/2014 Overview (07/09/2014): admitted [facility], cystoscopy, ureteroscopy, lithrotripsy, with ureteral stent DYSLIPIDEMIA, [...] as of this encounter (statuses as of 08/20/2024) Resolved Problems Problem Noted Date Diagnosed Date [...] as of this encounter (statuses as of 08/20/2024) Immunizations Name Administration Dates Next Due Pneumococcal [...] on file documented as of this encounter Plan of Treatment Upcoming Encounters Date Type Department Care Team (Latest Contact Info) Description 09/04/2024 9:30 AM EST Hospital Encounter ENDO OSSC, Endoscopy Room [facility] [address] [place] [phone] Sanjuana Baker MD [address] [place] [address] 09/04/2024 9:30 AM EST - 09/04/2024 10:00 AM EST Surgery ENDO O[facility], Endoscopy Room [facility] [address] [place] [phone] Sanjuana Baker MD [address] [place] [address] ESOPHAGOGASTRODUODENOSCOPY (EGD), FLEXIBLE, TRANSORAL, DIAGNOSTIC 10/13/2024 12:00 PM EST Office Visit Gastroenterolog y, [facility] [address] [place] [address] Viridiana Ortiz CRNP [address] [place] [address] 10/13/2024 3:00 PM EST Laboratory Laboratory [facility] [place] [address] [place] [phone] [facility] [address] [place] [address] 10/13/2024 4:00 PM EST Office Visit Hematology/Onco logy Joceline Benjamin [place] [address] [place] [phone] Bette Ortiz CRNP [address] [place] [address] [place] [address] 11/12/2024 1:30 PM EST Office Visit Cardiology, [facility] 132 [facility] [place] [address] Elisa Jay PA-C [address] [facility] [address] [address] [address] Scheduled Procedures Name Priority Associated Diagnoses Date/Ti me ESOPHAGOGASTRODUODENOSCOPY ( EGD), FLEXIBLE, TRANSORAL, DIAGNOSTIC Esophageal varices (HCC) 09/04/2024 9:30 AM EST Health Maintenance Due Date Last Done Comments CKD PHOS USE SMARTSET 76002 1967 DTap/Tdap Vaccines (1 - Tdap) 01/22/1968 Albumin/Creatinine Ratio 01/18/2010 009, 10/28/2006, 04/26/2006, Additional history exists Diabetic Foot Exam 03/18/2015 03/18/2014, 0 01/18/2009, 05/22/2007 HbA1c 11/26/2023 05/28/2023, 0809/2022, 09/18/2007, Additional history exists *COPD SEVERITY VERIFIED BY PFT 04/30/2024 COVID-19 Vaccine ( season) 2024 Influenza Vaccine (FLU shot) (#1) 2024 06/06/2023, 07/09/2022, 07/03/2021, Additional history exists GFR 10/14/2024 04/13/2024, 09/17, 07/22/2023, Additional history exists Diabetic Eye Exam 12/16/2024 12/17/2023, 07/19/2007 O2 ASSESSMENT COMPLETED IN PAST YEAR FOR COPD 03/17/2025 03/17/2024 CKD HGB USE SMARTSET 08605 04/13/202504/13, 04/13/2024, 10/14/2023, Additional history exists Depression Monitoring 06/19/2025 06/19/2024 Colonoscopy 07/24/2026 07/24/2021, 11/0 04/2021, 09/15/2018, Additional history exists Pneumococcal Vaccine: [...] Not on filedocumented as of this encounter Procedures Procedure Name Priority Date/Time Associated Diagnosis Comments CARDIOLOGY SCANNED RESULT 08/20/2024 documented in this encounter Results * CARDIOLOGY SCANNED RESULT (08/20/2024) 08/20/2024 us Lorenza Parnell DO OTHER Final R esult documented in this encounter Care Teams Insurance Salesperson Relationship Specialty Start Date End Date Donovan Ruvalcaba CRNP [address] [facility], [place] [address] PCP - General Nurse Practitioner 03/20/24 documented as of this encounter
--- OUTSIDE RECORDS SUMMARY | 2024-09-14 19:10 | External Medical Summary | Summary of Care ---
Author Name Unknown Organization [facility] Address [address] [facility] [place] [address] Phone [phone] Care Team Providers Care Nurse Chemical Dependency Name Role Phone Donovan Ruvalcaba Primary Care Provide r Reason for Visit * Reason Comments Follow Up Encounter Details Date Type Department Care Team (Late st Contact Info) Description 04/24/2024 2:00 PM EDT Office Visit Cardiology, [facility] [address] [facility] [place] [address] Elisa Jay PA-C [address] [address] Chronic heart failure with preserved ejection fraction (HFpEF) (HCC)*; Heart block AV third degree (HCC); Cardiac pacemaker in situ; HTN, goal below 140/90; Dyslipidemia, goal LDL below 100 Allergies Active Allergy Reactions Criticality Noted Date Comments Iodinated Contrast Media High 07/13/2021 MRI Other Reaction(s): Vomiting Quinolones Unknown 04/08/1998 ? yrs. ago? documented as of this encounter (statuses as of 04/27/2024) Medications Medication Sig Dispensed Refills Start Date End Date Status ONE TOUCH LANCETS MISCIndications: DM type 2, not at goal (HCC) as directed 100 5 02/10/2002 Active METFORMIN HCL 1000 MG PO TABSIndications: DM type 2, not at goal (HCC) 1 by mouth twice a day 180 3 12/05/2006 Active Additional Information Patient not taking.Reported on 04/24/2024 ONE TOUCH STRP VIIndications:DM type 2, not at goal (HCC) once daily 50 5 05/22/2007 Active ASPIRIN 81 MG PO TABS daily Active LANTUS 100 UNIT/ML SUBQ SOLN Inject 60 Units under the skin in the morning. Active allopurinol (ZYLOPRIM) 100 MG Tablet Take [...] 1 Tablet by mouth in the morning. 12/21/2021 Active Ozempic (0.25 or 0.5 MG/DOSE) 2 MG/1.5ML Solution Pen-injector (Semaglutide(0.2 5 or 0.5MG/DOS)) Inject 0.25 mg under the [...] mouth in the morning. 90 Tablet 3 03/14/2023 Active Nadolol 20 MG Oral Tablet (Corgard) Take 1 Tablet by mouth in the morning. 180 Tablet 2 05/27/2023 Active Folic Acid 1 MG Oral Tablet Take 1 Tablet by mouth in the morning. 12/02/2022 Active Sertraline HCl 50 MG Oral Tablet (Zoloft) Take 1 Tablet by mouth in the morning. Active Atorvastatin Calcium 40 MG Oral Tablet (Lipitor) Take 1 Tablet by mouth in the morning. 03/20/2024 Active Furosemide 20 MG Oral Tablet (Lasix) Take 2 Tablets by mouth in the morning. 30 Tablet 5 04/24/2024 Active Furosemide 20 MG Oral Tablet (Lasix) Take 1 Tablet by mouth in the morning. 30 Tablet 5 03/20/2024 4 Discontinued documented as of this encounter (statuses as of 04/27/2024) Active Problems Problem Noted Date Diagnosed Date Renal colic on left side 06/30/2014 Overview: admitted [facility], cystoscopy, ureteroscopy, lithrotripsy, with ureteral stent DYSLIPIDEMIA, GOAL LDL BELOW 100 09/05/2009 Overview: Per Lipid Taxonomy. Type 2 diabetes mellitus wit h hemoglobin A1c goal of less than 7.0% 06/30/2009 Overview: Modified per Diabetes protocol #14. ICD-10 update of inactive term ADVANCE DIRECTIVE INFORMATION 09/04/2005 Overview: No, Advance Directive brochure given to patient at prior appointment. Diabetic polyneuropathy 12/26/2004 Overview: ICD-10 update of inactive term Major depressive disorder Overview: ICD-10 update of inactive term Panic disorder Kidney disease, chronic, stage III (GFR 30-59 ml /min) documented as of this encounter (statuses as of 04/27/2024) Resolved Problems Problem Noted Date Diagnosed Date Resolved Date OBESITY, BMI 30-34 (SEE ACTUAL BMI) 12/08/2009 03/18/2014 Overview: Per Obesity Taxonomy Chronic renal insufficiency 10/28/2006 03/18/2014 Overview: 26/1.4 GFR 55.5 Dyslipidemia, goal to be determined 12/26/2004 09/05/2009 Overview: Per Lipid Taxonomy. DM type 2, not at goal 04/20/200306/30 Overview: Modified per Diabetes protocol #14. Obesity, BMI not known 12/08 Overview: Per Obesity Taxonomy documented as of this encounter (statuses as of 04/27/2024) Immunizations Name Administration Dates Next Due Pneumococcal [...] drink = 0.6 oz pur e alcohol) Utilities Answer Date Recorded Do you have trouble paying y our heating, water, or electric bill? (Adult - for ages 18 years and over) Not on file 03/03/2024 Is your family able to pay t he heat, water, or electric bill? (Household - for ages 0-17 years) Not on file 03/03/2024 Does your family have access to good internet? (Household - for ages 0-17 years) Not on file 03/03/2024 Social Connections Answer Date Recorded How often do you feel lonely or isolated from those around you? (Adult - for ages 18 years and over) Not on file 03/03/2024 Sex and Gender Information Value Date Recorded Sex Assigned at Not on file Gender Identity Not on file Sexual Orientation Not on file Job Start Date Occupation Industry Not on file Not on file Not on file documented as of this encounter Last Filed Vital Signs Vital Sign Reading Time Taken Comments Blood Pressure 112/58 04/24/2024 2:05 PM EDT Pulse 64 04/24/2024 2:05 PM EDT Temperature - - Respiratory Rate 12 04/24/2024 2:05 PM EDT Oxygen Saturation - - Inhaled Oxygen Concentration - - Weight 98.5 kg (217 lb 1.6 oz) 04/24/2024 2:05 P M EDT Height - - Body Mass Index 32.06 03/06/2024 11:21 AM EDT documented in this encounter Patient Instructions * Patient Instructions* Elisa Jay PA-C - 04/24/2024 2:20 PM EDT Increase furosemide (lasix) to 40 mg daily, labs in 1 week documented in this encounter Progress Notes * Elisa Jay PA-C - 04/24/2024 2:08 PM EDT 04/24/2024 Cardiology Follow Up Cardiac Problems: HFpEF Chronic bifascular block Symptomatic Bradycardia and 3rd degree heart block s/p PPM 05/2023 HTN DM CKD stage 3 Dyslipidemia Colon cancer s/p resection Cirrhosis HPI: Simone Boykin is a 74 year old male who presents for cardiology follow up. Presents today accompanied by . States he continues to have lower extremity edema, has not noticed any improvement since starting furosemide. Not checking weights at home. Drinks about 48 oz of water daily, occasional diet soda. Recently had chicken, potatoes, [employer] fish limon and fries. States he is compliant with all medications, although unsure what he takes. Sleeps in recliner. Denies chest pain, palpitations, shortness of breath, PND, orthopnea, lightheadedness, syncope. REVIEW OF SYSTEMS: See HPI for pertinent positives. All others negative other than those noted in the HPI. CONSTITUTIONAL: No change in weight, No weakness, No fatigue and No fevers, No sweats or chills. PULMONARY: No cough, sputum, or hemoptysis, No wheezing, No shortness of breath and No recent change in breathing. CARDIOVASCULAR: No chest pain, No dyspnea on exertion, + edema, No palpitations and No syncope. GASTROINTESTINAL: No abdominal pain, No change in bowel habits, No significant heartburn, No nausea, No vomiting, No diarrhea, No constipation, No blood in stools or black tarry stools. No dysphagia. HEMATOLOGIC: No abnormal bleeding and No bruising. NEUROLOGICAL: Normal balance, No headaches and No weakness. Review of patient's allergies indicates: Allergen Reactions Iodinated Contrast Media MRI Other Reaction(s): Vomiting Quinolones Unknown ? yrs. ago? Current Outpatient Medications Medication Sig Dispense Refill ASPIRIN 81 MG PO TABS daily LANTUS 100 UNIT/ML SUBQ SOLN Inject 60 Units under the skin in the morning. allopurinol (ZYLOPRIM) 100 MG Tablet Take 1 Tablet by mouth in the morning. Ferrous Sulfate 325 (65 Fe) MG Oral Tablet (Feosol) Take 1 Tablet by mouth daily with breakfast. Cholecalciferol 25 MCG (1000 UT) Oral Capsule Take 2 Capsules by mouth in the morning. Empagliflozin 25 MG Oral Tablet (Jardiance) Take 1 Tablet by mouth in the morning. Ozempic (0.25 or 0.5 MG/DOSE) 2 MG/1.5ML Solution Pen-injector (Semaglutide(0.25 or 0.5MG/DOS)) Inject 0.25 mg under the skin once a week. hydrOXYzine HCl 10 MG Oral Tablet (Atarax) Take 1 Tablet by mouth at bedtime as needed for Itching or Other (sleep). Albuterol Sulfate HFA 108 (90 Base) MCG/ACT Inhalation Aerosol Solution Inhale 2 Puffs by mouth every 6 hours as needed. Vitamin C 500 MG Oral Tablet Chewable Take 0.5 Tablets by mouth in the morning. Pantoprazole Sodium 40 MG Oral Tablet Delayed Release (Protonix) Take 1 Tablet by mouth in the morning. 90 Tablet 3 Nadolol 20 MG Oral Tablet (Corgard) Take 1 Tablet by mouth in the morning. 180 Tablet 2 Folic Acid 1 MG Oral Tablet Take 1 Tablet by mouth in the morning. Sertraline HCl 50 MG Oral Tablet (Zoloft) Take 1 Tablet by mouth in the morning. Furosemide 20 MG Oral Tablet (Lasix) Take 1 Tablet by mouth in the morning. 30 Tablet 5 Atorvastatin Calcium 40 MG Oral Tablet (Lipitor) Take 1 Tablet by mouth in the morning. ONE TOUCH LANCETS MISC as directed 100 5 METFORMIN HCL 1000 MG PO TABS 1 by mouth twice a day (Patient not taking: Reported on 04/24/2024) 1803 ONE TOUCH STRP once daily 50 5 Insulin Syringe 30G X 1/2" 0.5 ML MISC No current facility-administered medications for this visit. Past Medical History: Diagnosis Date Acute cholecystitis Adenocarcinoma of colon ([facility]) Anemia BMI 33.0-33.9,adult Calculus of kidney Calculus of kidney Chronic renal insufficiency 10/28/2006 26/1.4 GFR 55.5 Colon polyps COPD (chronic obstructive pulmonary disease) ([facility]) Corns and callosities Depressive disorder, not elsewhere classified DM type 2, not at goal ([facility]) 04/20/2003 Edema Fatty liver Hyperlipidemia Hypertension Hypogonadism male [place] Kidney disease, chronic, stage III (GFR 30-59 ml/min) ([facility]) Left knee pain Mixed dyslipidemia Panic disorder Panic disorder Panic disorder (episodic paroxysmal anxiety) Polyneuropathy in diabetes(357.2) Renal colic on left side 06/30/2014 admitted [facility], cystoscopy, ureteroscopy, lithrotripsy, with ureteral stent Renal colic on right side 03/14/2014 [facility] ER had distal R ureter stones, largest 11 mm Tinea pedis Tinea unguium Family History Problem Relation Name Age of Onset Cancer Mother breast Cancer Father liver Diabetes Grandmother (Maternal) Heart Disorder Brother CABG age 57 Cancer Sister breat Diabetes Brother Asthma Son Social History Socioeconomic History Marital status: Occupational History Occupation: [employer] Tobacco Use Smoking status: Former Current packs/day: 0.00 Average packs/day: 1 pack/day for 15.0 years (15.0 ttl pk-yrs) Types: Cigarettes Start date: 09/16/1963 Quit date: 09/16/1978 Years since quittin.6 Smokeless tobacco: Never Vaping Use Vaping status: Never Used Substance and Sexual Activity Alcohol use: No Drug use: No Sexual activity: Yes Partners: Female Social Determinants of Health Social Connections OBJECTIVE/PHYSICAL EXAMINATION: BP 112/58 | Pulse 64 | Resp 12 | Wt 98.5 kg (217 lb 1.6 oz) | BMI 32.06 kg/m | BSA 2.19 m Wt Readings from Last 3 Encounters: 04/24/24 98.5 kg (217 lb 1.6 oz) 04/13/24 97.9 kg (215 lb 14.4 oz) 03/20/24 100.2 kg (221 lb) General: No acute distress. A+Ox3. HEENT: Normocephalic. Atraumatic. PERRL. EOMI. Conjunctiva and sclera clear. NECK: No carotid bruits. No JVD. Carotid upstrokes are brisk. Heart: RRR. S1 and S2 noted. No murmur. No rubs or gallops. PMI non displaced. Lungs: Clear to auscultation. No wheezes. No rhonchi. No rales. Abdomen: Normal bowel sounds. Soft. Nontender. No masses or organomegaly. No abdominal bruits. Obese. Extremities: 2+ bilateral LE edema. No clubbing or cyanosis. Pulses: radial=2/4, posterior tibial=2/4, dorsalis pedis = 2/4. NEURO: No focal deficits. PSYCH: Appropriate affect. DATA Labs & Imaging Reviewed Below: Echo 03/23/24 The qualitative LV ejection fraction is 60-64% (normal). The LV wall thickness is mildly increased (concentric). The left ventricular diastolic function is mildly abnormal (grade I). Mild mitral regurgitation is present. Mild tricuspid regurgitation is present. There is no evidence of pulmonary hypertension. Compared to prior study of 08/28/2021, there is no significant change. Device Interrogation 12/2023 Normal device function, adequate battery, A pacing 65.51%, RV pacing 5.66% ASSESSMENT/PLAN: 74 year old male 1. Chronic heart failure with preserved EF - hypervolemic on exam, edema present, weight down 4 lbs since last visit - edema likely due to dietary noncompliance, eats fast food frequently - discussed sodium and fluid restrictions - increase furosemide to 40 mg daily, repeat BMP in 1-2 weeks - continue Jardiance 25 mg daily - likely would benefit from case management and [facility] scales 2. Heart block AV third degree (HCC) 3. Cardiac pacemaker in situ - Normal device function on interrogation - Continue routine device checks 4. HTN, goal below 140/90 - blood pressure within goal - continue nadolol 20 mg daily 5. Dyslipidemia, goal LDL below 100 - last LDL 94 - continue atorvastatin 40 mg daily DISPOSITION: Follow up 1 month or sooner if symptoms worsen/fail to improve. All questions were answered to the patients satisfaction. Patient advised to report to ED with any and all emergencies. The patient agrees to the above plan and will call with additional questions or concerns. Elisa Jay PA-C Cardiology, [address] [place] [address] I spent a total of 35 minutes on the date of service in preparation, delivery, and documentation ofthe care provided to Simone Boykin excluding any time spent in the performance of separately billed services. This chart was completed in part utilizing [employer] Speech Voice Recognition Software. Grammatical errors, random word insertions, pronoun errors, and incomplete sentences are an occasional consequence of this system due to software limitations, ambient noise, and hardware issues. Any formal questions or concerns about the content, text, or information contained within the body of this dictation should be directly addressed to the provider for clarification. documented in this encounter Nursing Notes * Ragini Cosby CMA - 04/24/2024 2:00 PM EDT Chief Complaint Patient presents with Follow Up Examination Room: 1 Name: Simone Boykin Date of : (1950). Reason for Visit: FU Interim Hospitalization(s): denies Problems/Concerns: Denies Chest Pain/SOB: Denies [facility] Discussed: Yes [facility] is a way you can talk to your provider online through e-mail. Would you like to sign up? I can activate it for you? DECLINES Patient was instructed to not get up on the exam table until directed and assisted by their provider; patient is to remain seated in the chair/ wheelchair/ exam table for fall prevention and safety reasons. Patient is aware to have assistance to step down off exam table with personnel. Patient voiced full comprehension of instructions. documented in this encounter Plan of Treatment Upcoming Encounters Date Type Department Care Team (Latest Contact Info) Description 09/04/2024 9:30 AM [facility] Hospital Encounter ENDO [facility], Endoscopy Room [facility] [address] [place] [phone] Sanjuana Baker MD [address] [address] 09/04/2024 9:30 AM EST - 09/04/2024 10:00 AM EST Surgery ENDO [facility], Endoscopy Room [facility] [address] [place] [phone] Sanjuana Baker MD [address] [place] [address] ESOPHAGOGASTRODUODENOSCOPY (EGD), FLEXIBLE, TRANSORAL, DIAGNOSTIC 10/13/2024 3:00 PM EST Laboratory Laboratory [facility] [address] [place] [address] [place], Lab [facility] [address] [facility] [place] [address] 10/13/2024 4:00 PM EST Office Visit Hematology/Onco logy [facility] [place] [address] [place] [phone] Bette Ortiz CRNP [address] [address] Scheduled Orders Name Type Priority Associated Diagnoses Orde r Schedule BASIC METABOLIC PANEL Lab Routine Chronic heart failure with preserved ejection fraction (HFpEF) (HCC) Expected: 05/01/2024, Expires: 04/24/2025 Scheduled Procedures Name Priority Associated Diagnoses Date/Ti me ESOPHAGOGASTRODUODENOSCOPY ( EGD), FLEXIBLE, TRANSORAL, DIAGNOSTIC Esophageal varices (HCC) 09/04/2024 9:30 AM EST Health Maintenance Due Date Last Done Comments Depression Monitoring 1962 CKD PHOS USE SMARTSET 84447 1967 DTaP,Tdap,and Td Vaccines (1 - Tdap) 01/22/1968 Albumin/Creatinine Ratio 01/18/2010 009, 10/28/2006, 04/26/2006, Additional history exists Diabetic Foot Exam 03/18/2015 03/18/2014, 0 01/18/2009, 05/22/2007 COVID-19 Vaccine (1 - 2022- season) 2023 HbA1c 11/26/2023 05/28/2023, 08/0 09/2022, 09/18/2007, Additional history exists Influenza Vaccine (FLU shot) (#1) 2024 06/06/2023, 07/09/2022, 07/03/2021, Additional history exists GFR 10/14/2024 04/13/2024, 09/17, 07/22/2023, Additional history exists Diabetic Eye Exam 12/16/2024 12/17/2023, 07/19/2007 CKD HGB USE SMARTSET 80182 04/13/202504/13, 04/13/2024, 10/14/2023, Additional history exists Colonoscopy 07/24/2026 07/24/2021, 04/2021, 09/15/2018, Additional history exists Pneumococcal Vaccine: 65+ Years Completed 05/29/2017, 05/24/2016, 03/29/2014 Hepatitis B Vaccine Completed 10/12/2019, 05/19/2019, 04/15/2019 RETIRED - COLONOSCOPY-EVERY 5 YRS AGES 18-100 Discontinued 07/24/2021, 07/24/2021, 09/15/2018, Additional history exists Zoster Vaccines Completed 09/11/2021, 04/16, 08/05/2012 HPV (Gardasil) Vaccine Aged Out No lo nger eligible based on patient's age to complete this topic MENINGOCOCCAL (MENACTRA/MENVEO) Aged Out No longer eligible based on patient's age to complete this topic documented as of this encounter Medical Devices Not on filedocumented as of this encounter Visit Diagnoses Diagnosis Chronic heart failure with preserved ejection fraction (HFpEF) (HCC)- Primary Heart block AV third degree (HCC) Atrioventricular block, complete Cardiac pacemaker in situ HTN, goal below 140/90 Unspecified essential hypertension Dyslipidemia, goal LDL below 100 Other and unspecified hyperlipidemia Esophageal varices (HCC) Esophageal varices without mention of bleeding documented in this encounter Care Teams Nurse Chemical Dependency Relationship Specialty Start Date End Date Donovan Ruvalcaba CRNP [address] [place] [address] PCP - General Nurse Practitioner 03/20/24 documented as of this encounter
--- OUTSIDE RECORDS SUMMARY | 2024-09-14 19:10 | External Medical Summary | Summary of Care ---
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 yrs. ago? documented as of this encounter (statuses as of 05/21/2024) Medications Medication Sig Dispensed Refills Start Date End Date Status ONE TOUCH LANCETS MISCIndications:DM type 2, not at goal ([facility]) as directed 100 5 02/10/2002 Active ONE TOUCH STRP VIIndications:DM type 2, [...] the morning. 180 Tablet 2 05/27/2023 Active Alfuzosin HCl ER 10 MG Oral [...] mouth in the morning. 180 Tablet 3 05/21/2024 Active Furosemide 20 MG Oral Tablet (Lasix) Take 2 Tablets by mouth in the morning. 30 Tablet 5 04/24/2024 05/21/2024 Discontinue d(Refill) documented as of this encounter (statuses as of 05/21/2024) Active Problems Problem Noted Date Diagnosed Date Adjustment disorder with mixed anxiety and depre ssed mood 04/28/2024 Anemia 04/28/2024 Ankle edema 04/28/2024 Benign prostatic hyperplasia without urinary obs truction 04/28/2024 Overview: Jan 06, 2008 Entered By: LASHELL WINCHESTER MD Comment: s/p negative biopsies 11/21 CHF (congestive heart failure) 04/28/2024 Chronic obstructive pulmonary disease 04/28/2024 Overview: Aug 17, 2019 Entered By: LASHELL LIU PA-C Comment: minimal obstruction on pfts 07/2019 Cirrhosis of liver 04/28/2024 Overview: Jun 13, 2023 Entered By: RAAD ORTIZ Comment: due to GARCES per GI Vertigo 04/28/2024 Overview: May 25, 2014 Entered By: LASHELL WINCHESTER MD Comment: neg carotid dopplers and echo 01/01/14 Dyspnea, unspecified 04/28/2024 Dyspnea on exertion 04/28/2024 Overview: Jun 22, 2019 Entered By: LASHELL LIU [...] 07/01/2020 Renal colic on left side 06/30/2014 Overview: admitted [facility], cystoscopy, ureteroscopy, lithrotripsy, with ureteral stent DYSLIPIDEMIA, [...] as of this encounter (statuses as of 05/21/2024) Resolved Problems Problem Noted Date Diagnosed Date [...] as of this encounter (statuses as of 05/21/2024) Immunizations Name Administration Dates Next Due Pneumococcal [...] drink = 0.6 oz pur e alcohol) Hunger Vital Sign Answer Date Recorded Within [...] Sign Reading Time Taken Comments Blood Pressure 116/52 05/21/2024 10:28 AM EDT Pulse 64 05/21/2024 10:28 AM EDT Temperature - - Respiratory Rate 16 05/21/2024 10:28 AM EDT Oxygen Saturation - - Inhaled Oxygen Concentration - - Weight 95.7 kg (211 lb) 05/21/2024 10:28 AM EDT Height - - Body Mass Index 31.16 03/06/2024 11:21 AM EDT documented in this encounter Progress Notes * Luisito Do, DO - 05/21/2024 10:47 AM EDT 05/21/2024 Cardiology Follow Up PCP: JORGE RUVALCABA [address] [place] [address] CHIEF COMPLAINT: Close cardiology follow up, lower extremity edema SUBJECTIVE: Simone Boykin is a 74 year old year old male who returns in close cardiology follow-uphaving most recently been seen by Elisa Jay PA-C of our practice a month ago on 04/24/2024. The patient had previously followed with Dr. Jacobs who is retired. I however had seen the patient in consultation while hospitalized in June 05, 2023 with recurrent syncope and near-syncope with noted findings of transient third-degree AV block. The patient therefore underwent implantation of a Medtronic dual-chamber permanent pacemaker with left bundle lead on 05/21/2023. At the time of routine visit on 03/20/2024 the patient was found to have new 2+ bilateral lower extremity edema that he had not been appreciated in 2022. Furosemide 20 milligrams daily was started which was titrated to 40 milligrams daily on 04/24/2024. The patient initially had a good response to the diuretic but he notes that he has not been taking it for the last 2 weeks. First he was at the [facility]. Than his spouse suffered a fall and has since been admitted to [facility] he was in turn been visiting her, it was not been adherent with his furosemide and his edema is now back to being 2+. An echocardiogram was performed in March, for evaluation of the edema with results as noted below. Per review of chart and discussion with the patient his diet is poor and often times eats fast food and foods with high salt burden. He walks with a cane in his slightly unsteady on his feet. Cardiac Problems: Chronic bifascular block Symptomatic Bradycardia and 3rd degree heart block s/p PPM 05/2023 HTN DM CKD stage 3 Dyslipidemia Colon cancer s/p resection. Cirrhosis due to GARCES, Extensive ROS: All systems reviewed & are unremarkable except as noted in HPI & below Cardiovascular (chest pain/palpitations/fluttering/diaphoresis/dyspnea on exertion/paroxysmally nocturnal dyspnea):Negative Review of patient's allergies indicates: Allergen Reactions Iodinated Contrast Media MRI Other Reaction(s): Vomiting Quinolones Unknown ? yrs. ago? Current Outpatient Medications Medication Sig Dispense Refill ASPIRIN 81 MG PO TABS daily allopurinol (ZYLOPRIM) 100 MG Tablet Take 1 [...] mouth in the morning. 180 Tablet 2 Alfuzosin HCl ER 10 MG Oral Tablet Extended Release 24 Hour (Uroxatral) Take 1 Tablet by mouth in the morning. Escitalopram Oxalate 10 MG Oral Tablet (Lexapro) Take 1 Tablet by mouth in the morning. Atorvastatin Calcium 80 MG Oral Tablet (Lipitor) Take 1 Tablet by mouth in the morning. Insulin Glargine 100 UNIT/ML Subcutaneous Solution (Lantus) Inject 44 Units under the skin in the morning and 44 Units before bedtime. Pen. ONE TOUCH LANCETS MISC as directed 100 5 ONE TOUCH STRP once daily 50 5 Insulin Syringe 30G X 1/2" 0.5 ML MISC Furosemide 20 MG Oral Tablet (Lasix) Take 2 Tablets by mouth in the morning. (Patient not taking: Reported on 04/30/2024) 30 Tablet 5 No current facility-administered medications for this visit. OBJECTIVE/PHYSICAL EXAMINATION: BP 116/52 | Pulse 64 | Resp 16 | Wt 95.7 kg (211 lb) | BMI 31.16 kg/m | BSA 2.16 m General: no acute distress and stated age Eyes: conjunctiva are pink and non-injected, sclera clear Neck: normal jugular venous pulse, no hepatojugular reflux Chest: normal shape and normal respiratory effort -left infraclavicular pacemaker pocket clean dry and intact, with no erythema Lungs: clear to auscultation , no rales rhonchi or wheezing Cardiac Exam: - regular heart sounds, no murmurs, rubs, or gallops Abdomen: abdomen soft, non-tender, no abnormal masses and no hepatosplenomegaly -abdomen mildly distended on exam, difficult to tell if there is ascites are not Musculoskeletal: no gait disturbance, no weakness Extremities: no edema and no cyanosis Neuro: grossly normal exam Psych: appropriate affect and insight. Data: Device interrogation had most recently been performed on 03/20/2024: Generator longevity was stable at 13 years Patient was atrial sensed, ventricular sensed, with atrial pacing 34.9% the time, ventricular pacing 9.42% the time, normal device function Liver ultrasound June, revealed hepatomegaly, small amount of perihepatic ascites Lipid Panel Results: Results for orders placed or performed in visit on 09/18/07 LIPID PANEL Result Value Ref Range HOURS FASTING 3 hours Triglycerides 167 60 - 290 mg/dL Cholesterol 125 <200 mg/dL HDL Cholesterol 41 40 - 59 mg/dL Cholesterol-HDL Ratio 3.0 LDL Cholesterol 51 0 - 100 mg/dL Summary of transthoracic echocardiogram performed 03/23/2024: The qualitative LV ejection fraction is 60-64% (normal). The LV wall thickness is mildly increased (concentric). The left ventricular diastolic function is mildly abnormal (grade I). Mild mitral regurgitation is present. Mild tricuspid regurgitation is present. There is no evidence of pulmonary hypertension. Compared to prior study of 08/28/2021, there is no significant change. Latest Reference Range & Units 04/13/24 13:44 Sodium 135 - 146 mmol/L 142 Potassium 3.5 - 5.1 mmol/L 4.2 Chloride 98 - 107 mmol/L 104 CO2 22 - 32 mmol/L 27 BUN 6 - 20 mg/dL 11 Creatinine 0.6 - 1.2 mg/dL 1.2 Estimated Glomerular Filtration Rate >=60 mL/min 66 Anion Gap 7 - 15 mmol/L 11 Glucose 70 - 120 mg/dL 181 (H) Calcium 8.4 - 10.2 mg/dL 8.8 Protein 6.0 - 8.3 g/dL 6.4 (H): Data is abnormally high ASSESSMENT / PLAN: 74 year old year old male ICD-10-CM 1. Chronic heart failure with preserved ejection fraction (HFpEF) (HCC) I50.32 2. 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 Heart block AV third degree (HCC) I44.2 4. Cardiac pacemaker in situ Z95.0 -it was difficult to tell if his fluid retention is due to heart failure with preserved ejection fraction, or as a result of cirrhosis. -the patient's primary care provider as with the [facility]. He was quite confused with regards to knowing which providers he sees for what elements. Per review of his chart, he had beenseen in routine GI follow-[facility] within [facility] system most recently in May, for his liver disease. He did however have an EGD performed on 03/17/2024 revealing grade 1 esophagealvarices with findings of portal gastropathy and a repeat EGD was tentatively recommended at a six-month interval. -I discussed with him the importance of adherence to the furosemide 40 milligrams daily. Although adding another agents such as spironolactone is good future consideration, given his lack of adherence, I felt it was most prudent to try to just keep his medication regimen as simple as possible for today and I kept things the same and encouraged adherence. --as noted, patient is seen in longitudinal follow-up for the above chronic conditions. DISPOSITION: Follow Up: Return in about 2 months (around 07/21/2024) for Clinic Visit. | For: Clinic Visit | Check-out note: 2 month follow up , perhaps with Elisa Do DO Cardiology, [facility] [address] [place] [address] This chart was completed in part utilizing [employer] Speech Voice Recognition Software. Grammatical errors, random word insertions, prounoun errors, and incomplete sentences are an occasional consequence of this system due to software limitations, ambient noise, and hardware issues. Any formal questions or concerns about the content, text, or information contained within the body of this dictation should be directly addressed to the provider for clarification. documented in this encounter Nursing Notes * Elodia Purcell LPN - 05/21/2024 10:27 AM EDT Examination Room: 10 Name: Simone Boykin Date of : 1950 Reason for Visit: Follow up Problems/Concerns: BL LE Edema, has not taken furosemide for 3 weeks d/t fair and being in hospital Interim Hosp(s): denies Chest Pain/SOB: Denies CP, denies SOB MyChart Discussed: DECLINES Patient was instructed to not get up on the exam table until directed and assisted by their provider; patient is to remain seated in the chair/ wheelchair/ exam table for fall prevention and safety reasons. Patient is aware staff will assist stepping down off exam table with personnel. documented in this encounter Plan of Treatment Upcoming Encounters Date Type Department Care Team (Latest Contact Info) Description 09/04/2024 9:30 AM EST Hospital Encounter ENDO [facility], Endoscopy Room [facility] [address] [place] [phone] Sanjuana Baker MD [address] [place] [address] 09/04/2024 9:30 AM EST - 09/04/2024 10:00 AM EST Surgery ENDO [facility], Endoscopy Room [facility] [address] [facility] [place] [phone] Sanjuana Baker MD [address] [place] [address] ESOPHAGOGASTRODUODENOSCOPY (EGD), FLEXIBLE, TRANSORAL, DIAGNOSTIC 09/08/2024 3:00 PM EST Office Visit Cardiology, [facility] [address] [facility] [place] [address] Elisa Jay PA-C [address] [place] [address] 10/13/2024 3:00 PM EST Laboratory Laboratory [facility] [address] [facility] [place] [phone] [facility] Lab [facility] [address] [facility] [place] [address] 10/13/2024 4:00 PM EST Office Visit Hematology/Onco logy [facility] [address] [place] [phone] Bette Ortiz CRNP [address] [facility] [place] [phone] Scheduled Procedures Name Priority Associated Diagnoses Date/Ti ky ESOPHAGOGASTRODUODENOSCOPY ( EGD), FLEXIBLE, TRANSORAL, DIAGNOSTIC Esophageal varices (HCC) 09/04/2024 9:30 AM EST Health Maintenance Due Date Last Done Comments Depression Monitoring 1962 CKD PHOS USE SMARTSET 72349 1967 DTap/Tdap Vaccines (1 - Tdap) 01/22/1968 [...] COPD 03/17/2025 03/17/2024 CKD HGB USE SMARTSET 83779 04/13/202504/13, 04/13/2024, 10/14/2023, Additional history exists Colonoscopy [...] with preserved ejection fraction (HFpEF) (HCC)- Primary 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
--- OUTSIDE RECORDS SUMMARY | 2024-09-14 19:10 | External Medical Summary | Summary of Care ---
Author Name Unknown Organization [facility] Address [address] [place] [address] Phone [phone] Care Team Providers Care Income Tax Auditor Name Role Phone Donovan Ruvalcaba Primary Care Provide r Encounter Details Date Type Department Care Team (Late st Contact Info) Description 05/03/2024 Result Scan Unspecified Department Lorenza Parnell, DO [address] [facility] [place] [address] [address] <No scans attached> Allergies Active Allergy Reactions Criticality Noted Date Comments Iodinated Contrast Media High 07/13/2021 MRI Other Reaction(s): Vomiting Quinolones Unknown 04/08/1998 ? yrs. ago? documented as of this encounter (statuses as of 05/03/2024) Medications Medication Sig Dispensed Refills Start Date End Date Status ONE TOUCH LANCETS MISCIndications:DM type 2, not at goal (HCC) as directed 100 5 02/10/2002 Active ONE [...] the morning. 180 Tablet 2 05/27/2023 Active Furosemide 20 MG Oral Tablet (Lasix) Take 2 Tablets by mouth in the morning. 30 Tablet 5 04/24/2024 Active Additional Information Patient not taking.Reported on 04/30/2024 Alfuzosin HCl ER 10 MG Oral Tablet [...] and 44 Units before bedtime. Pen. Active documented as of this encounter (statuses as of 05/03/2024) Active Problems Problem Noted Date Diagnosed Date Adjustment disorder with mixed anxiety and depre ssed mood 04/28/2024 Anemia 04/28/2024 Ankle edema 04/28/2024 Benign prostatic hyperplasia without urinary obs truction 04/28/2024 Overview: Jan 06, 2008 Entered By: LASHELL WINCHESTER MD Comment: s/p negative biopsies 11/21 Benign prostatic hyperplasia without lower urinary tract symptoms 04/28/2024 CHF (congestive heart failure) 04/28/2024 Chronic obstructive pulmonary disease 04/28/2024 Overview: Aug 17, 2019 Entered By: LASHELL LIU PA-C Comment: minimal obstruction on pfts 07/2019 Cirrhosis of liver 04/28/2024 Overview: Jun 13, 2023 Entered By: RAAD ORTIZ Comment: due to GARCES per GI Dizziness and giddiness 04/28/2024 Vertigo 04/28/2024 Overview: May 25, 2014 Entered [...] colic on left side 06/30/2014 Overview: admitted [facility], cystoscopy, ureteroscopy, lithrotripsy, with ureteral stent DYSLIPIDEMIA, [...] as of this encounter (statuses as of 05/03/2024) Resolved Problems Problem Noted Date Diagnosed Date [...] as of this encounter (statuses as of 05/03/2024) Immunizations Name Administration Dates Next Due Pneumococcal [...] 04/28/2024 Does the household have a re lar source of income? (Household - for ages [...] Department Care Team (Latest Contact Info) Description 05/21/2024 10:30 AM EDT Office Visit Cardiology, [facility] [address] [place] [phone] Luisito Do, [address] [place] [address] 09/04/2024 9:30 AM EST Hospital Encounter ENDO [facility], Endoscopy Room [facility] [address] [place], [place] [phone] Sanjuana Baker MD [address] [place] [address] 09/04/2024 9:30 AM EST - 09/04/2024 10:00 AM EST Surgery ENDO [facility], Endoscopy Room [facility] [address] [place] [phone] Sanjuana Baker MD [address] [place] [address] ESOPHAGOGASTRODUODENOSCOPY (EGD), FLEXIBLE, TRANSORAL, DIAGNOSTIC 10/13/2024 3:00 PM EST Laboratory Laboratory [facility] [place] [address] [place] [phone] [place], Lab [facility] [address] [facility] [place] [address] 10/13/2024 4:00 PM EST Office Visit Hematology/Onco logy [facility] [place] [address] [place] [phone] Bette Ortiz CRNP [address] [place] [address] [address] Scheduled Procedures Name Priority Associated Diagnoses Date/Ti me ESOPHAGOGASTRODUODENOSCOPY ( EGD), FLEXIBLE, TRANSORAL, DIAGNOSTIC Esophageal varices (HCC) 09/04/2024 9:30 AM EST Health Maintenance Due Date Last Done Comments Depression Monitoring 1961 CKD PHOS USE SMARTSET 36000 1967 DTaP,Tdap,and Td Vaccines (1 - Tdap) 01/22/1968 Albumin/Creatinine Ratio 01/18/2010 009, 10/28/2006, 04/26/2006, Additional history exists Diabetic Foot Exam 03/18/2015 03/18/2014, 0 01/18/2009, 05/22/2007 COVID-19 Vaccine ( season) 2023 HbA1c 11/26/2023 05/28/2023, 08/09/2022, 09/18/2007, Additional history exists *COPD SEVERITY VERIFIED BY PFT 04/30/2024 Influenza Vaccine (FLU shot) (#1) 2024 06/06/2023, 07/09/2022, 07/03/2021, Additional history exists GFR 10/14/2024 04/13/2024, 09/17, 07/22/2023, Additional history exists Diabetic Eye Exam 12/16/2024 12/17/2023, 07/19/2007 O2 ASSESSMENT COMPLETED IN PAST YEAR FOR COPD 03/17/2025 03/17/2024 CKD HGB USE SMARTSET 15606 04/13/202504/13, 04/13/2024, 10/14/2023, Additional history exists Colonoscopy [...] Date/Time Associated Diagnosis Comments CARDIOLOGY SCANNED RESULT 05/03/2024 documented in this encounter Results * CARDIOLOGY SCANNED RESULT (05/03/2024) 05/03/2024 Lorenza Parnell DO OTHER documented in this encounter Care Teams Income Tax Auditor Relationship Specialty Start Date End Date Donovan Ruvalcaba CRNP [address] [place] [address] PCP - General Nurse Practitioner 03/20/24 documented as of this encounter
--- OUTSIDE RECORDS SUMMARY | 2024-09-14 19:10 | External Medical Summary | Summary of Care ---
Author Name Unknown Organization [facility] Address [address] [place] [address] Phone [phone] Care Team Providers Care Repairing Calibrator Name Role Phone Donovan Ruvalcaba Primary Care Provide r Reason for Visit * Reason Onset Date Comments Test Results Imaging Study 04/14/2024 Encounter Details Date Type Department Care Team (Late st Contact Info) Description 04/14/2024 Telephone Hematology/Oncology [facility] [place] [address] [place] [facility] [place] [address] Bette Ortiz CRNP [address] [place] [address] Test Results Imaging Study Allergies Active Allergy Reactions Criticality Noted Date Comments Iodinated Contrast Media High 07/13/2021 MRI Other Reaction(s): Vomiting Quinolones Unknown 04/08/1998 ? yrs. ago? documented as of this encounter (statuses as of 04/15/2024) Medications Medication Sig Dispensed Refills Start Date End Date Status ONE TOUCH LANCETS MISCIndications:DM type 2, not at goal (HCC) as directed 100 5 02/10/2002 Active METFORMIN HCL 1000 MG PO TABSIndications:DM type 2, not at goal ([facility]) 1 by mouth twice a day 180 3 12/05/2006 Active ONE TOUCH STRP VIIndications:DM type 2, [...] Tablet by mouth in the morning. Active Furosemide 20 MG Oral Tablet (Lasix) Take 1 Tablet by mouth in the morning. 30 Tablet 5 03/20/2024 Active Atorvastatin Calcium 40 MG Oral Tablet (Lipitor) Take 1 Tablet by mouth in the morning. 03/20/2024 Active documented as of this encounter (statuses as of 04/15/2024) Active Problems Problem Noted Date Diagnosed Date Renal colic on left side 06/30/2014 Overview: admitted [facility], cystoscopy, ureteroscopy, lithrotripsy, with ureteral stent DYSLIPIDEMIA, [...] as of this encounter (statuses as of 04/15/2024) Resolved Problems Problem Noted Date Diagnosed Date [...] as of this encounter (statuses as of 04/15/2024) Immunizations Name Administration Dates Next Due Pneumococcal [...] encounter Miscellaneous Notes * Telephone Encounter - Remi Lemus RN - 04/15/2024 9:54 AM EDT Call attempt #2, no answer, did not leave second VM. * Telephone Encounter - Remi Lemus RN - 04/14/2024 4:06 PM EDT Called patient, no answer, LMOM with return #. * Telephone Encounter - Remi Lemus RN - 04/14/2024 4:05 PM EDT ----- Message from Bette Ortiz sent at 04/14/2024 3:56 PM EDT ----- Please let patient know that ultrasound was negative for signs of a blood clot documented in this encounter Plan of Treatment Upcoming Encounters Date Type Department Care Team (Latest Contact Info) Description 04/24/2024 2:00 PM EDT Office Visit Cardiology, [facility] [address] [facility] [place] [address] Elisa Jay PA-C [address] [place] [address] 09/04/2024 9:30 AM EST Hospital Encounter ENDO [facility], Endoscopy Room [facility] [address] [place] [phone] Sanjuana Baker MD [address] [place] [address] 09/04/2024 9:30 AM EST - 09/04/2024 10:00 AM EST Surgery ENDO [facility], Endoscopy Room [facility] [address] [place] [phone] Sanjuana Baker MD [address] [place] [address] ESOPHAGOGASTRODUODENOSCOPY (EGD), FLEXIBLE, TRANSORAL, DIAGNOSTIC 10/13/2024 3:00 PM EST Laboratory Laboratory [facility] [address] [place] [phone] [facility] 200 [facility] [place] [address] 10/13/2024 4:00 PM EST Office Visit Hematology/Onco logy [facility] [address] [place] [phone] Bette Ortiz CRNP [address] [place] [address] Scheduled Procedures Name Priority Associated Diagnoses Date/Ti me ESOPHAGOGASTRODUODENOSCOPY ( EGD), FLEXIBLE, TRANSORAL, DIAGNOSTIC Esophageal varices (HCC) 09/04/2024 9:30 AM EST Health Maintenance Due Date Last Done Comments Depression Monitoring 1962 CKD PHOS USE SMARTSET 23950 1967 DTaP,Tdap,and Td Vaccines (1 - Tdap) 01/22/1968 Albumin/Creatinine Ratio 01/18/2010 009, 10/28/2006, 04/26/2006, Additional history exists Diabetic Foot Exam 03/18/2015 03/18/2014, 0 01/18/2009, 05/22/2007 COVID-19 Vaccine (1 - season) 2023 HbA1c 11/26/2023 05/28/2023, 080 09/2022, 09/18/2007, Additional history exists Influenza Vaccine (FLU shot) (#1) 2024 06/06/2023, 07/09/2022, 07/03/2021, Additional history exists GFR 10/14/2024 04/13/2024, 09/17, 07/22/2023, Additional history exists Diabetic Eye Exam 12/16/2024 12/17/2023, 07/19/2007 CKD HGB USE SMARTSET 89296 04/13/202504/13, 04/13/2024, 10/14/2023, Additional history exists Colonoscopy 07/24/2026 07/24/2021, 04/2021, 09/15/2018, Additional history exists Pneumococcal Vaccine: 65+ Years Completed 05/29/2017, 05/24/2016, 03/29/2014 Hepatitis B Vaccine Completed 10/12/2019, 05/19/2019, 04/15/2019 RETIRED - COLONOSCOPY-EVERY 5 YRS AGES 18-100 Discontinued 07/24/2021, 07/24/2021, 09/15/2018, Additional history exists Zoster Vaccines Completed 09/11/2021, 04/16, 08/05/2012 Hepatitis C Screening Completed 02/08/2022 HPV (Gardasil) Vaccine Aged Out No lo nger eligible based on patient's age to complete this topic MENINGOCOCCAL (MENACTRA/MENVEO) Aged Out No longer eligible based on patient's age to complete this topic documented as of this encounter Medical Devices Not on filedocumented as of this encounter Care Teams Repairing Calibrator Relationship Specialty Start Date End Date Donovan Ruvalcaba CRNP [address] [facility], [place] [address] PCP - General Nurse Practitioner 03/20/24 documented as of this encounter
--- OUTSIDE RECORDS SUMMARY | 2024-09-14 19:10 | External Medical Summary | Summary of Care ---
Author Name Unknown Organization [facility] Address [address] [place] [address] Phone [phone] Care Team Providers Care Booth Cashier Name Role Phone Donovan Ruvalcaba Primary Care Provide r Reason for Visit * Reason Onset Date Comments Test Results Imaging Study 04/14/2024 Encounter Details Date Type Department Care Team (Late st Contact Info) Description 04/14/2024 Telephone Hematology/Oncology [facility] [place] [address] [place] [facility] [place] [address] Bette Ortiz CRNP [address] [place] [address] Test Results Imaging Study Allergies Active Allergy Reactions Criticality Noted Date Comments Iodinated Contrast Media High 07/13/2021 MRI Other Reaction(s): Vomiting Quinolones Unknown 04/08/1998 ? yrs. ago? documented as of this encounter (statuses as of 04/17/2024) Medications Medication Sig Dispensed Refills Start Date End Date Status ONE TOUCH LANCETS MISCIndications:DM type 2, not at goal (HCC) as directed 100 5 02/10/2002 Active METFORMIN HCL 1000 MG PO TABSIndications:DM type 2, not at goal ([facility]) 1 by mouth twice a day 180 [...] as of this encounter (statuses as of 04/17/2024) Active Problems Problem Noted Date Diagnosed Date Renal colic on left side 06/30/2014 Overview: admitted [facility], cystoscopy, ureteroscopy, lithrotripsy, with ureteral [...] as of this encounter (statuses as of 04/17/2024) Resolved Problems Problem Noted Date Diagnosed Date [...] as of this encounter (statuses as of 04/17/2024) Immunizations Name Administration Dates Next Due Pneumococcal [...] encounter Miscellaneous Notes * Telephone Encounter - Marion Delatorre RN - 04/17/2024 8:59 AM EDT Called patient, he verbalized understanding. * Telephone Encounter - Marion Delatorre RN - 04/16/2024 8:33 AM EDT Left message #2 for return call. * Telephone Encounter - Remi Lemus RN [...] 04/24/2024 2:00 PM EDT Office Visit Cardiology, [facility] [address] [place] [address] Elisa Jay PA-C [address] [place] [address] 09/04/2024 9:30 AM EST Hospital Encounter ENDO [facility], Endoscopy Room [facility] [address] [place] [phone] Sanjuana Baker MD [address] [place] [address] 09/04/2024 9:30 AM EST - 09/04/2024 10:00 AM EST Surgery ENDO [facility], Endoscopy Room [facility] [address] [place] [phone] Sanjuana Baker MD [address] [place] [address] ESOPHAGOGASTRODUODENOSCOPY (EGD), FLEXIBLE, TRANSORAL, DIAGNOSTIC 10/13/2024 3:00 PM EST Laboratory Laboratory [address] [facility] [place] [address] [place] [phone] [place], Lab [address] [facility] [place] [address] 10/13/2024 4:00 PM EST Office Visit Hematology/Onco logy [facility] [place] [address] [place] [address] Bette Ortiz CRNP [address] [place] [address] Scheduled Procedures Name Priority Associated Diagnoses Date/Ti me ESOPHAGOGASTRODUODENOSCOPY ( EGD), FLEXIBLE, TRANSORAL, DIAGNOSTIC Esophageal varices (HCC) 09/04/2024 9:30 AM EST Health Maintenance Due Date Last Done Comments Depression Monitoring 1962 CKD PHOS USE SMARTSET 45927 1967 DTaP,Tdap,and Td Vaccines (1 - Tdap) 01/22/1968 Albumin/Creatinine Ratio 01/18/2010 009, 10/28/2006, 04/26/2006, Additional history exists Diabetic Foot Exam 03/18/2015 03/18/2014, 0 01/18/2009, 05/22/2007 COVID-19 Vaccine ( - 2022- season) 2023 HbA1c 11/26/2023 05/28/2023, 0809/2022, 09/18/2007, Additional history exists Influenza Vaccine (FLU shot) (#1) 2024 06/06/2023, 07/09/2022, 07/03/2021, Additional history exists GFR 10/14/2024 04/13/2024, 09/17, 07/22/2023, Additional history exists Diabetic Eye Exam 12/16/2024 12/17/2023, 07/19/2007 CKD HGB USE SMARTSET 08526 04/13/202504/13, 04/13/2024, 10/14/2023, Additional history exists Colonoscopy 07/24/2026 07/24/2021, 1104/2021, 09/15/2018, Additional history exists Pneumococcal Vaccine: 65+ [...] filedocumented as of this encounter Care Teams Booth Cashier Relationship Specialty Start Date End Date Donovan Ruvalcaba CRNP [address] [place] [address] PCP - General Nurse Practitioner 03/20/24 documented as of this encounter
--- OUTSIDE RECORDS SUMMARY | 2024-09-14 19:10 | External Medical Summary | Summary of Care ---
Author Name Unknown Organization [facility] Address [address] [facility] [address] Phone [phone] Care Team Providers Care Dredge Worker Name Role Phone Donovan Ruvalcaba Primary Care Provide r Reason for Visit * Reason Comments Follow Up Encounter Details Date Type Department Care Team (Late st Contact Info) Description 04/24/2024 2:00 PM EDT Office Visit Cardiology, [facility] [address] [facility] [place] [address] Elisa Jay PA-C [address] [facility] [address] [address] Chronic heart failure with preserved ejection fraction (HFpEF) (HCC)*; Heart block AV third degree (HCC); Cardiac pacemaker in situ; HTN, goal below 140/90; Dyslipidemia, goal LDL below 100 Allergies Active Allergy Reactions Criticality Noted Date Comments Iodinated Contrast Media High 07/13/2021 MRI Other Reaction(s): Vomiting Quinolones Unknown 04/08/1998 ? yrs. ago? documented as of this encounter (statuses as of 04/24/2024) Medications Medication Sig Dispensed Refills Start Date [...] as of this encounter (statuses as of 04/24/2024) Active Problems Problem Noted Date Diagnosed Date Renal colic on left side 06/30/2014 Overview: admitted [facility], cystoscopy, ureteroscopy, lithrotripsy, with ureteral [...] as of this encounter (statuses as of 04/24/2024) Resolved Problems Problem Noted Date Diagnosed Date [...] as of this encounter (statuses as of 04/24/2024) Immunizations Name Administration Dates Next Due Pneumococcal [...] Diagnosis Date Acute cholecystitis Adenocarcinoma of colon ([facility]) Anemia BMI 33.0-33.9,adult Calculus of kidney Calculus of kidney Chronic renal insufficiency 10/28/2006 26/1.4 GFR 55.5 Colon polyps COPD (chronic obstructive pulmonary disease) ([facility]) Corns and callosities Depressive disorder, not elsewhere classified DM type 2, not at goal ([facility]) 04/20/2003 Edema Fatty liver Hyperlipidemia Hypertension Hypogonadism male Keratoconus Kidney disease, chronic, stage III (GFR 30-59 ml/min) ([facility]) Left knee pain Mixed dyslipidemia Panic disorder Panic disorder Panic disorder (episodic paroxysmal anxiety) Polyneuropathy in diabetes(357.2) Renal colic on left side 06/30/2014 admitted [facility], cystoscopy, ureteroscopy, lithrotripsy, with ureteral stent Renal colic on right side 03/14/2014 [facility] ER had distal R ureter stones, largest 11 mm Tinea pedis Tinea unguium Family History Problem Relation Name Age of Onset Cancer Mother breast Cancer Father liver Diabetes Grandmother (Maternal) Heart Disorder Brother CABG age 57 Cancer Sister breat Diabetes Brother Asthma Son Social History Socioeconomic History Marital status: Occupational History Occupation: [employer] Tobacco Use Smoking status: Former Current packs/day: [...] atorvastatin 40 mg daily DISPOSITION: Follow up 6 months or sooner if symptoms worsen/fail to improve. All questions were answered to the patients satisfaction. Patient advised to report to ED with any and all emergencies. The patient agrees to the above plan and will call with additional questions or concerns. Elisa Jay PA-C Cardiology, [address] [place] [address] I spent a total of 35 minutes on the date of service in preparation, delivery, and documentation ofthe care provided to Simone Boykin excluding any time spent in the performance of separately billed services. This chart was completed in part utilizing Ver[employer] Speech Voice Recognition Software. Grammatical errors, random [...] (Latest Contact Info) Description 09/04/2024 9:30 AM [facility] Hospital Encounter ENDO [facility], Endoscopy Room [facility] [address] [place] [phone] Sanjuana Baker MD [address] [place] [address] 09/04/2024 9:30 AM EST - 09/04/2024 10:00 AM EST Surgery ENDO [facility], Endoscopy Room [facility] [address] [place] [phone] Sanjuana Baker MD [address] [place] [address] ESOPHAGOGASTRODUODENOSCOPY (EGD), FLEXIBLE, TRANSORAL, DIAGNOSTIC 10/13/2024 3:00 PM EST Laboratory Laboratory [facility] [address] [place], [place] [address] [place], Lab [facility] [address] [facility] [place] [address] 10/13/2024 4:00 PM EST Office Visit Hematology/Onco logy [facility] [place] [address] [place] [phone] Bette Ortiz CRNP [address] [facility] [address] [address] Scheduled Orders Name Type Priority Associated Diagnoses Orde r Schedule BASIC METABOLIC PANEL Lab Routine Chronic heart failure with preserved ejection fraction (HFpEF) (HCC) Expected: 05/01/2024, Expires: 04/24/2025 Scheduled Procedures Name Priority Associated Diagnoses Date/Ti me ESOPHAGOGASTRODUODENOSCOPY ( EGD), FLEXIBLE, TRANSORAL, DIAGNOSTIC Esophageal varices (HCC) 09/04/2024 9:30 AM EST Health Maintenance Due Date Last Done Comments Depression Monitoring 1962 CKD PHOS USE SMARTSET 21352 1967 DTaP,Tdap,and Td Vaccines (1 - Tdap) [...] 12/16/2024 12/17/2023, 07/19/2007 CKD HGB USE SMARTSET 64082 04/13/202504/13, 04/13/2024, 10/14/2023, Additional history exists Colonoscopy [...] bleeding documented in this encounter Care Teams Dredge Worker Relationship Specialty Start Date End Date Donovan Ruvalcaba CRNP [address] [place] [address] PCP - General Nurse Practitioner 03/20/24 documented as of this encounter
--- OUTSIDE RECORDS SUMMARY | 2024-09-14 19:10 | External Medical Summary | Summary of Care ---
Author Name Unknown Organization [facility] Address [address] [place] [address] Phone [phone] Care Team Providers Care Easement Man Name Role Phone Donovan Ruvalcaba Primary Care Provide r Reason for Visit * Reason Onset Date Comments Medication Refill 05/01/2024 Encounter Details Date Type Department Care Team (Late st Contact Info) Description 05/01/2024 Refill Care Coordination and Integration [address] [place] [address] Liza Alvarado RN [address] [place], [place] [phone] Allergies Active Allergy Reactions Criticality Noted Date Comments Iodinated Contrast Media High 07/13/2021 MRI Other Reaction(s): Vomiting Quinolones Unknown 04/08/1998 ? yrs. ago? documented as of this encounter (statuses as of 05/01/2024) Medications Medication Sig Dispensed Refills Start Date [...] as of this encounter (statuses as of 05/01/2024) Active Problems Problem Noted Date Diagnosed Date Adjustment disorder with mixed anxiety and depre ssed mood 04/28/2024 Anemia 04/28/2024 Ankle edema 04/28/2024 Benign prostatic hyperplasia without urinary obs truction 04/28/2024 Overview: Jan 06, 2008 Entered By: LASHELL WINCHESTER MD Comment: s/p negative biopsies 3/08 Benign prostatic hyperplasia without lower urinary tract [...] on left side 06/30/2014 Overview: admitted [facility], cystoscopy, ureteroscopy, lithrotripsy, with ureteral stent DYSLIPIDEMIA, [...] as of this encounter (statuses as of 05/01/2024) Resolved Problems Problem Noted Date Diagnosed Date [...] as of this encounter (statuses as of 05/01/2024) Immunizations Name Administration Dates Next Due Pneumococcal [...] 05/21/2024 10:30 AM EDT Office Visit Cardiology, [facility] [address] [place] [address] Luisito Do DO [address] [place] [address] 09/04/2024 9:30 AM EST Hospital Encounter ENDO [facility], Endoscopy Room [facility] [address] [place], [place] [phone] Sanjuana Baker MD [address] [place] [address] 09/04/2024 9:30 AM EST - 09/04/2024 10:00 AM EST Surgery ENDO [facility], Endoscopy Room [facility] [address] [place] [phone] Sanjuana Baker MD [address] [place] [address] ESOPHAGOGASTRODUODENOSCOPY (EGD), FLEXIBLE, TRANSORAL, DIAGNOSTIC 10/13/2024 3:00 PM EST Laboratory Laboratory [facility] [address] [facility] [place] [phone] [facility] [address] [facility] [place] [address] 10/13/2024 4:00 PM EST Office Visit Hematology/Onco logy [facility] [place] [address] [facility] [place] [phone] Bette Ortiz CRNP 400 [facility] [place] [address] Scheduled Procedures Name Priority Associated Diagnoses Date/Ti me ESOPHAGOGASTRODUODENOSCOPY ( EGD), FLEXIBLE, TRANSORAL, DIAGNOSTIC Esophageal varices (HCC) 09/04/2024 9:30 AM EST Health Maintenance Due Date Last Done Comments Depression Monitoring 1962 CKD PHOS USE SMARTSET 87642 1967 DTaP,Tdap,and Td Vaccines (1 - Tdap) [...] COPD 03/17/2025 03/17/2024 CKD HGB USE SMARTSET 82265 04/13/202504/13, 04/13/2024, 10/14/2023, Additional history exists Colonoscopy [...] filedocumented as of this encounter Care Teams Easement Man Relationship Specialty Start Date End Date Donovan Ruvalcaba CRNP [address] [place] [address] PCP - General Nurse Practitioner 03/20/24 documented as of this encounter
--- OUTSIDE RECORDS SUMMARY | 2024-09-14 19:10 | External Medical Summary | Summary of Care ---
Author Name Unknown Organization [facility] Address [address] [place] [address] Phone [phone] Care Team Providers Care Honing Job Setter Name Role Phone Donovan Ruvalcaba Primary Care Provide r Reason for Visit * Reason Onset Date Comments Test Results Imaging Study 04/14/2024 Encounter Details Date Type Department Care Team (Late st Contact Info) Description 04/14/2024 Telephone Hematology/Oncology [facility] [place] [address] [place] [facility] [place] [address] Bette Ortiz CRNP [address] [place] [address] Test Results Imaging Study Allergies Active Allergy Reactions Criticality Noted Date Comments Iodinated Contrast Media High 07/13/2021 MRI Other Reaction(s): Vomiting Quinolones Unknown 04/08/1998 ? yrs. ago? documented as of this encounter (statuses as of 04/16/2024) Medications Medication Sig Dispensed Refills Start Date End Date Status ONE TOUCH LANCETS MISCIndications:DM type 2, not at goal (HCC) as directed 100 5 02/10/2002 Active METFORMIN HCL 1000 MG PO TABSIndications:DM type 2, not at goal ([facility]) 1 by mouth twice a day 180 [...] as of this encounter (statuses as of 04/16/2024) Active Problems Problem Noted Date Diagnosed Date Renal colic on left side 06/30/2014 Overview: admitted [facility], cystoscopy, ureteroscopy, lithrotripsy, with ureteral stent DYSLIPIDEMIA, [...] as of this encounter (statuses as of 04/16/2024) Resolved Problems Problem Noted Date Diagnosed Date [...] as of this encounter (statuses as of 04/16/2024) Immunizations Name Administration Dates Next Due Pneumococcal [...] 04/24/2024 2:00 PM EDT Office Visit Cardiology, [facility] [address] [place] [address] Elisa Jay PA-C [address] [place] [address] 09/04/2024 9:30 AM EST Hospital Encounter ENDO [facility], Endoscopy Room [facility] [address] [place] [phone] Sanjuana Baker MD [address] [place] [address] 09/04/2024 9:30 AM EST - 09/04/2024 10:00 AM EST Surgery ENDO [facility], Endoscopy Room [facility] [address] [place] [phone] Sanjuana Baker MD [address] [place] [address] ESOPHAGOGASTRODUODENOSCOPY (EGD), FLEXIBLE, TRANSORAL, DIAGNOSTIC 10/13/2024 3:00 PM EST Laboratory Laboratory [facility] [place] [address] [place] [phone] [place], Lab [facility] [address] [facility] [place] [address] 10/13/2024 4:00 PM EST Office Visit Hematology/Onco logy [facility] [place] [address] [place] [phone] Bette Ortiz CRNP [address] [place] [address] Scheduled Procedures Name Priority Associated Diagnoses Date/Ti me ESOPHAGOGASTRODUODENOSCOPY ( EGD), FLEXIBLE, TRANSORAL, DIAGNOSTIC Esophageal varices (HCC) 09/04/2024 9:30 AM EST Health Maintenance Due Date Last Done Comments Depression Monitoring 1962 CKD PHOS USE SMARTSET 21011 1967 DTaP,Tdap,and Td Vaccines (1 - Tdap) 01/22/1968 Albumin/Creatinine Ratio 01/18/2010 009, 10/28/2006, 04/26/2006, Additional history exists Diabetic Foot Exam 03/18/2015 03/18/2014, 0 01/18/2009, 05/22/2007 COVID-19 Vaccine ( - season) 2023 HbA1c 11/26/2023 05/28/2023, 08/0 09/2022, 09/18/2007, Additional history exists Influenza Vaccine (FLU shot) (#1) 2024 06/06/2023, 07/09/2022, 07/03/2021, Additional history exists GFR 10/14/2024 04/13/2024, 09/17, 07/22/2023, Additional history exists Diabetic Eye Exam 12/16/2024 12/17/2023, 07/19/2007 CKD HGB USE SMARTSET 46032 04/13/202504/13, 04/13/2024, 10/14/2023, Additional history exists Colonoscopy 07/24/2026 07/24/2021, 110 04/2021, 09/15/2018, Additional history exists Pneumococcal Vaccine: [...] filedocumented as of this encounter Care Teams Honing Job Setter Relationship Specialty Start Date End Date Donovan Ruvalcaba CRNP [address] [place] [address] PCP - General Nurse Practitioner 03/20/24 documented as of this encounter
--- OUTSIDE RECORDS SUMMARY | 2024-09-14 19:11 | External Medical Summary | Summary of Care ---
Author Name Unknown Organization [facility] Address [address] [place] [address] Phone [phone] Care Team Providers Care Medical Affairs Leader Name Role Phone Donovan Ruvalcaba Primary Care Provide r Reason for Visit * Reason Onset Date Comments Test Results Imaging Study 04/14/2024 Encounter Details Date Type Department Care Team (Late st Contact Info) Description 04/14/2024 Telephone Hematology/Oncology [facility] [place] [address] [place] [address] Bette Ortiz CRNP [address] [place] [address] Test Results Imaging Study Allergies Active Allergy Reactions Criticality Noted Date Comments Iodinated Contrast Media High 07/13/2021 MRI Other Reaction(s): Vomiting Quinolones Unknown 04/08/1998 ? yrs. ago? documented as of this encounter (statuses as of 04/14/2024) Medications Medication Sig Dispensed Refills Start Date End Date Status ONE TOUCH LANCETS MISCIndications:DM type 2, not at goal (HCC) as directed 100 5 02/10/2002 Active METFORMIN HCL 1000 MG PO TABSIndications:DM type 2, not at goal ([facility]) 1 by mouth twice a day 180 [...] as of this encounter (statuses as of 04/14/2024) Active Problems Problem Noted Date Diagnosed Date Renal colic on left side 06/30/2014 Overview: admitted [facility], cystoscopy, ureteroscopy, lithrotripsy, with ureteral [...] as of this encounter (statuses as of 04/14/2024) Resolved Problems Problem Noted Date Diagnosed Date [...] as of this encounter (statuses as of 04/14/2024) Immunizations Name Administration Dates Next Due Pneumococcal [...] Office Visit Cardiology, [facility] [address] [place] [address] Elisa Jay PA-C [address] [place] [address] [place] [address] 09/04/2024 9:30 AM EST Hospital Encounter [facility], Endoscopy Room [facility] [address] [place] [phone] Sanjuana Baker MD [address] [place] [address] 09/04/2024 9:30 AM EST - 09/04/2024 10:00 AM EST Surgery ENDO [facility], Endoscopy Room [facility] [address] [facility] [place] [phone] Sanjuana Baker MD [address] [place] [address] ESOPHAGOGASTRODUODENOSCOPY (EGD), FLEXIBLE, TRANSORAL, DIAGNOSTIC 10/13/2024 3:00 PM EST Laboratory Laboratory [facility] [place] [address] [place] [phone] [place], Lab [facility] [address] [facility] [place] [address] 10/13/2024 4:00 PM EST Office Visit Hematology/Onco logy [facility] [place] [address] [place] [phone] Bette Ortiz CRNP [address] [facility] [place] [id number] Scheduled Procedures Name Priority Associated Diagnoses Date/Ti md ESOPHAGOGASTRODUODENOSCOPY ( EGD), FLEXIBLE, TRANSORAL, DIAGNOSTIC Esophageal varices (HCC) 09/04/2024 9:30 AM EST Health Maintenance Due Date Last Done Comments Depression Monitoring 1962 CKD PHOS USE SMARTSET 28407 1967 DTaP,Tdap,and Td Vaccines (1 - Tdap) 01/22/1968 Albumin/Creatinine Ratio 01/18/2010 009, 10/28/2006, 04/26/2006, Additional history exists Diabetic Foot Exam 03/18/2015 03/18/2014, 0 01/18/2009, 05/22/2007 COVID-19 Vaccine ( season) 2023 HbA1c 11/26/2023 05/28/2023, 0809/2022, 09/18/2007, Additional history exists Influenza Vaccine (FLU shot) (#1) 2024 06/06/2023, 07/09/2022, 07/03/2021, Additional history exists GFR 10/14/2024 04/13/2024, 09/17, 07/22/2023, Additional history exists Diabetic Eye Exam 12/16/2024 12/17/2023, 07/19/2007 CKD HGB USE SMARTSET 30167 04/13/202504/13, 04/13/2024, 10/14/2023, Additional history exists Colonoscopy [...] filedocumented as of this encounter Care Teams Medical Affairs Leader Relationship Specialty Start Date End Date Donovan Ruvalcaba CRNP [address] [place] [address] PCP - General Nurse Practitioner 03/20/24 documented as of this encounter
--- OUTSIDE RECORDS SUMMARY | 2024-09-14 19:11 | External Medical Summary | Summary of Care ---
Author Name Unknown Organization [facility] Address [address] [place] [facility] [place] [address] Phone [phone] Care Team Providers Care Sawdust Drier Name Role Phone Donovan Ruvalcaba Primary Care Provide r Reason for Visit * Reason Comments Follow Up 6 month follow up * Evaluate & Treat - Unlimited Visits (Within 30 days (routine)) - Authorized Specialty Diagnoses / Procedures Referred By Contac t Referred To Contact Hematology Oncology Diagnoses evaulate and treat Procedures evaluate and treat Donovan Ruvalcaba CRNP [address] [place] [address] Hem/Onc [facility] [address] [place] [address] Referral ID Status Reason Start Date Expiration Date Visits Requested Visits Authorized [id number] Authorized Specialty Services Required 03/26/2024 10/10/[phone] Encounter Details Date Type Department Care Team (Late st Contact Info) Description 04/13/2024 3:00 PM EDT Office Visit Hematology/Oncology [facility] [place] [address] [facility] [place] [address] Bette Ortiz CRNP [address] [address] Encounter for follow-up examination after completed treatment for malignant neoplasm*; History of colon cancer, stage I; Anemia, unspecified type; Stage 3a chronic kidney disease (HCC); Edema of left lower leg; History of DVT (deep vein thrombosis) Allergies Active Allergy Reactions Criticality Noted Date Comments Iodinated Contrast Media High 07/13/2021 MRI Other Reaction(s): Vomiting Quinolones Unknown 04/08/1998 ? yrs. ago? documented as of this encounter (statuses as of 04/13/2024) Medications Medication Sig Dispensed Refills Start Date End Date Status ONE TOUCH LANCETS MISCIndications:DM type 2, not at goal (HCC) as directed 100 5 02/10/2002 Active METFORMIN HCL 1000 MG PO TABSIndications:DM type 2, not at goal (HCC) 1 [...] as of this encounter (statuses as of 04/13/2024) Active Problems Problem Noted Date Diagnosed Date Renal colic on left side 06/30/2014 Overview: admitted [facility], cystoscopy, [...] as of this encounter (statuses as of 04/13/2024) Resolved Problems Problem Noted Date Diagnosed Date [...] as of this encounter (statuses as of 04/13/2024) Immunizations Name Administration Dates Next Due Pneumococcal Polysaccharide PPV23 (Pneumovax) 03/29/2014 Seasonal Influenza, PF, 6 M & above, IM , (FluLaval or Fluzone) 07/09/2022 Seasonal Influenza, Quadriva lent Hd, 65+ Yrs 06/06/2023,07/03/2021,05/30/2020 documented as of this encounter Social History Tobacco Use Types Packs/Day Years Used Date Smoking Tobacco: Former Cigarettes 1 15 0 09/16/1963 - 09/16/1978 Smokeless Tobacco: Never Tobacco Cessation:Counseling Given: Not Answered Alcohol Use Standard Drinks/Week Comments No 0 [...] Sign Reading Time Taken Comments Blood Pressure 122/64 04/13/2024 2:55 PM EDT Pulse 69 04/13/2024 2:55 PM EDT Temperature 36.8 C (98.2 F) 04/13/2024 2:55 PM ED T Respiratory Rate - - Oxygen Saturation 92% 04/13/2024 2:55 PM EDT Inhaled Oxygen Concentration - - Weight 97.9 kg (215 lb 14.4 oz) 04/13/2024 2:55 PM EDT Height - - Body Mass Index 31.88 03/06/2024 11:21 AM EDT documented in this encounter Progress Notes * Bette OrtizCHEPE - 04/13/2024 2:47 PM EDT Hematology/Oncology Outpatient Clinic note [facility] [address] [facility] [place] [address] Name: Simone Boykin Date: 04/13/2024 CHIEF COMPLAINT: Simone Boykin is a 74 year old male patient of Dr. López Reema here today for f/u visit today. From Patient chart confirmed with patient. HEMATOLOGY/ONCOLOGY DIAGNOSIS: Colon cancer Cancer Staging pT2pN0, stage I disease DATE OF DIAGNOSIS: 07/24/21 TREATMENT HISTORY: Laparoscopic assisted right colon resection and umbilical hernia repair on 11/01/2021 CURRENT TREATMENT: Observation ONCOLOGY HISTORY: Patient with past medical history significant for diabetes, hypertension, CKD, neuropathy, anxiety and panic disorder referred for the evaluation of anemia. He presented with complaint of abdominal pain and anemia. He had a colonoscopy done on 07/24/2021 which revealed polypoid lesion in the hepatic flexure. Biopsy was done and pathology consistent with adenocarcinoma moderately differentiated. A. Colon, cecum, polypectomy: Tubular adenoma, multiple. B. Colon, hepatic flexure, mass, biopsy: Adenocarcinoma, moderately differentiated. (See Comment) C. Colon, transverse, polypectomy: Tubular adenoma, multiple. D. Colon, sigmoid, polypectomy: Tubulovillous adenoma. Patient had CT scan of chest and pelvis done which were negative for metastasis. He underwent laparoscopic assisted right colon resection and umbilical hernia repair on 11/01/2021.He had complicated postop course including ileus, hematoma and infection. He was discharged from the hospital on 12/04/2021. Pathology was consistent with adenocarcinoma, grade 1 well-differentiated and tumor size was 3 cm which invades muscularis propria, 15 lymph nodes were removed and there were negative for metastatic disease. Patient has stage pT2pN0, stage I disease and referred for furthermanagement. FINAL DIAGNOSIS A. Colon, right and omentum, resection: - Adenocarcinoma. - See synoptic report. B. Umbilical hernia sac, herniography: - Benign hernia sac. Microscopic Description MISMATCH REPAIR PROTEINS TESTING BY IHC FOR ARVIZU SYNDROME MLH1 Protein: Intact. PMS2 Protein: Intact. MSH2 Protein: Intact. MSH6 Protein: Intact. INTERPRETATION: Intact expression of all four proteins (MLH1, MSH2, MSH6 and PMS2) is present within the carcinoma. The immunohistochemistry findings are not consistent with microsatellite instability. Synoptic Report COLON AND RECTUM: Resection, Including Transanal Disk Excision of Rectal Neoplasms SPECIMEN Procedure: Right hemicolectomy Tumor Site: Hepatic flexure Histologic Type: Adenocarcinoma Histologic Grade: G1: Well differentiated Tumor Size: Greatest dimension (Centimeters) - 3.0 cm Tumor Extension: Tumor invades muscularis propria Macroscopic Tumor Perforation: Not identified Lymphovascular Invasion: Not identified Perineural Invasion: Not identified Treatment Effect: No known presurgical therapy MARGINS Margins: All margins are uninvolved by invasive carcinoma, high grade dysplasia / intramucosal carcinoma, and low grade dysplasia Margins Examined: Proximal, Distal, Radial (circumferential) or Mesenteric Distance of Tumor from Radial (circumferential) Margin: 4.0 cm LYMPH NODES Number of Lymph Nodes Involved: 0 Number of Lymph Nodes Examined: 15 Tumor Deposits: Not identified PATHOLOGIC STAGE CLASSIFICATION (pTNM, AJCC 8th Edition) Note: Reporting of pT, pN, and (when applicable) pM categories is based on information available tothe pathologist at the time the report is issued. As per the AJCC (Chapter 1, 8th Ed.) it is the managing physicians responsibility to establish the final pathologic stage based upon all pertinentinformation, including but potentially not limited to this pathology report. Primary Tumor (pT): pT2 Regional Lymph Nodes (pN): PN0. Currently he is issues with depression recently started on antidepressant medication. He is also under stress because his is sick and currently in the rehab. He denies any headache, dizziness, blurred vision, chest pain, shortness breath palpitation abdominal pain or distention, bleeding, bruising, nausea, vomiting, fever, night sweats, hematuria, hematochezia. Last endoscopy and ultrasound was done on 11/14/2022 and he had biopsy from the liver which is consistent with Evolving cirrhosis. Final Diagnosis A. 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 Recent blood test were done on 05/28/2023 which shows WBC count of 6000, hemoglobin 10 and plateletcount 128. MCV was normal and RDW was high. Creatinine was 1.5 with mild increase in the LFTs. Total bilirubin was 2.3 He quit smoking in 1979. He used to smoke 1 pack per day for about 20 years. He denies drinking. Family history significant for mother and sister were diagnosed of breast cancer. Father was diagnosed of lung cancer. Interval History: EGD 03/17/24: Impression: - Grade I esophageal varices. - Portal hypertensive gastropathy. - Normal duodenal bulb and second portion of the duodenum. - No specimens collected. Recommendation: - Discharge patient to home. - Return to referring physician. - Repeat upper endoscopy in 6 months for surveillance. HISTORY OF PRESENT ILLNESS: Simone Boykin is a 74 year old male with a history as outlined above. Currently here for f/u visittoday. Has been experiencing increased swelling in his lower extremities for the last 1-2 months. Was started on Lasix by cardiology. Has not noticed much improvement yet. Has lost about 5-6 pounds though. Also having swelling in his abdomen. Eats a lot of salt in his diet. Continues to decline colonoscopy. Occasionally has black stools. Has been having more loose stools over the last six months.Going about three times a day. Eats quite a bit of fast food. Takes iron once a day. Notices his left leg is larger than his right and a little more red. Has trouble getting around d/t his legs feeling heavy. Denies any pain or warmth in the leg. Does have a remote history of a RLE DVT and PE in the setting of immobility. Crushed his heel and was in a cast when this occurred. Does have a remote history of a RLE DVT and PE in the setting of immobility. Crushed his heel and was in a cast when this occurred. Took coumadin for six months. Past Medical History: Diagnosis Date Acute cholecystitis Adenocarcinoma of colon (HCC) Anemia BMI 33.0-33.9,adult Calculus of kidney Calculus of kidney Chronic renal insufficiency 10/28/2006 26/1.4 GFR 55.5 Colon polyps COPD (chronic obstructive pulmonary disease) ([facility]) Corns and callosities Depressive disorder, not elsewhere classified DM type 2, not at goal ([facility]) 04/20/2003 Edema Fatty liver Hyperlipidemia Hypertension Hypogonadism male Keratoconus Kidney disease, chronic, stage III (GFR 30-59 ml/min) ([facility]) Left knee pain Mixed dyslipidemia Panic disorder Panic disorder Panic disorder (episodic paroxysmal anxiety) Polyneuropathy in diabetes(357.2) Renal colic on left side 06/30/2014 admitted [facility], cystoscopy, ureteroscopy, lithrotripsy, with ureteral stent Renal colic on right side 03/14/2014 [facility] ER had distal R ureter stones, largest 11 mm Tinea pedis Tinea unguium Past Surgical History: Procedure Laterality Date BIOPSY OF PROSTATE 11/2007 benign, Dr. Rhodes CALCANEOUS FX W/FIXATION 1991 COLONOSCOPY, DIAGNOSTIC (RECTUM) 09/15/2018 adenomatous & hyperplastic polyps, diverticulosis, repeat 5 yrs/COLONOSCOPY FLEXIBLE PROXIMAL DIAGNOSTIC performed by Cheyanne Peña DO at ENDOSCOPY [facility] COLONOSCOPY, DIAGNOSTIC (RECTUM) 07/24/2021 mulitple polyps, rule out malignancy/biopsies show adenocarcinoma, multiple tubular adenoma and tubulovillous adenoma/COLONOSCOPY FLEXIBLE PROXIMAL DIAGNOSTIC performed by Cheyanne Peña DO at ENDOSCOPY [facility] COLORECTAL CANCER SCREEN; NOT AT RISK 06/24/2007 CT ABDOMEN/PELVIS 03/14/2014 liver 21 cm heart enlarged, obstruction calculus in proximal right ureter, at least 4 obstructing calculi in distal right ureter, mod hydronephrosis CYSTOSCOPY/INSERTION OF STENT 07/01/2014 [facility], for left renal stone EGD, FLEXIBLE, DIAGNOSTIC 11/14/2022 esophageal varices / ESOPHAGOGASTRODUODENOSCOPY (EGD), FLEXIBLE, TRANSORAL, DIAGNOSTIC performed byMiguel Burkett MD at ENDOSCOPY [facility] EGD, FLEXIBLE, DIAGNOSTIC 02/19/2023 mild portal gastropathy, eso varices, repeat 1 mo / ESOPHAGOGASTRODUODENOSCOPY (EGD), FLEXIBLE, TRANSORAL, DIAGNOSTIC performed by Sanjuana Baker MD at ENDOSCOPY [facility] EGD, FLEXIBLE, DIAGNOSTIC 03/17/2024 ESOPHAGOGASTRODUODENOSCOPY (EGD), FLEXIBLE, TRANSORAL, DIAGNOSTIC performed by Miguel Burkett MD at ENDOSCOPY [facility] EGD, W/ENDOSCOPIC US 11/14/2022 fatty liver disease / ESOPHAGOGASTRODUODENOSCOPY (EGD), FLEXIBLE, TRANSORAL, ENDOSCOPIC ULTRASOUND performed by Miguel Burkett MD at ENDOSCOPY [facility] KNEE ARTHROSCOPY/MENISCUS REPAIR 07/2003 bilateral REMOVE GALLBLADDER 1994 laparoscopic Social History Socioeconomic History Marital status: Spouse name: Not on file Number of children: Not on file Years of education: Not on file Highest education level: Not on file Occupational History Occupation: [employer] Tobacco Use Smoking status: Former Current packs/day: 0.00 Average packs/day: 1 pack/day for 15.0 years (15.0 ttl pk-yrs) Types: Cigarettes Start date: 09/16/1963 Quit date: 09/16/1978 Years since quittin.6 Smokeless tobacco: Never Vaping Use Vaping status: Never Used Substance and Sexual Activity Alcohol use: No Drug use: No Sexual activity: Yes Partners: Female Other Topics Concern Not on file Social History Narrative Not on file Social Determinants of Health Financial Resource Strain: Not on file Food Insecurity: Not on file Transportation Needs: Not on file Social Connections: Unknown (03/03/2024) Social Connections How often do you feel lonely or isolated from those around you? (Adult - for ages 18 years and over): Not on file Housing Stability: Not on file Review of patient's allergies indicates: Allergen Reactions Iodinated Contrast Media MRI Other Reaction(s): Vomiting Quinolones Unknown ? yrs. ago? Current Outpatient Medications Medication Sig Dispense Refill ONE TOUCH LANCETS MISC as directed 100 5 METFORMIN HCL 1000 MG PO TABS 1 by mouth twice a day 180 3 ONE TOUCH STRP once daily 50 5 ASPIRIN 81 MG PO TABS daily LANTUS 100 UNIT/ML SUBQ SOLN Inject 60 Units under the skin in the morning. allopurinol (ZYLOPRIM) 100 MG Tablet Take 1 Tablet by mouth in the morning. Insulin Syringe 30G X 1/2" 0.5 ML MISC Ferrous Sulfate 325 (65 Fe) MG Oral [...] 1 Tablet by mouth in the morning. No current facility-administered medications for this visit. REVIEW OF SYSTEMS: See HPI - otherwise negative OBJECTIVE: Filed Vitals: 04/13/24 1455 BP: 122/64 Pulse: 69 Temp: 36.8 C (98.2 F) TempSrc: Tympanic SpO2: 92% Weight: 97.9 kg (215 lb 14.4 oz) Wt Readings from Last 5 Encounters: 04/13/24 97.9 kg (215 lb 14.4 oz) 03/20/24 100.2 kg (221 lb) 03/06/24 95.3 kg (210 lb) 10/14/23 94.8 kg (209 lb 1.6 oz) 09/11/23 97.1 kg (214 lb) PHYSICAL EXAM: ECOG: Performance Status 1 = 80-90% Symptoms but nearly ambulatory General Appearance: No acute distress Lymph Nodes: Normal - No palpable lymph nodes in the neck or supraclavicular areas Lungs/Thorax: Normal - Clear to auscultation Heart: Normal - Regular rate and rhythm, normal S1, S2, no appreciable murmurs Extremities: +2 LLE edema - distal aspect of extremity is erythematous; +1 RLE edema Abdomen: Softly distended, nontender, bowel sounds present, Neurologic: alert and oriented x 4, ambulates with cane LABS: Results for orders placed or performed in visit on 04/13/24 COMPREHENSIVE METABOLIC PANEL Result Value Ref Range BUN 11 6 - 20 mg/dL Creatinine 1.2 0.6 - 1.2 mg/dL Estimated Glomerular Filtration Rate 66 >=60 mL/min Sodium 142 135 - 146 mmol/L Potassium 4.2 3.5 - 5.1 mmol/L Chloride 104 98 - 107 mmol/L CO2 27 22 - 32 mmol/L Anion Gap 11 7 - 15 mmol/L Glucose 181 (H) 70 - 120 mg/dL Albumin 3.4 (L) 3.8 - 5.0 g/dL AST 62 (H) 10 - 50 U/L Alkaline Phosphatase 250 (H) 35 - 130 U/L Bilirubin, Total 2.0 (H) <=1.2 mg/dL Calcium 8.8 8.4 - 10.2 mg/dL Protein 6.4 6.0 - 8.3 g/dL ALT 32 10 - 50 U/L CBC Result Value Ref Range WBC 7.77 4.00 - 10.80 K/uL RBC 4.03 4.50 - 5.25 M/uL HGB 10.7 (L) 14.0 - 16.8 g/dL HCT 34.6 (L) 40.0 - 48.4 % MCV 85.9 82.0 - 99.5 fL MCH 26.6 27.0 - 34.0 pg MCHC 30.9 32.0 - 36.0 g/dL RDW 17.5 11.5 - 15.5 % PLT 138 (L) 140 - 400 K/uL MPV 9.3 6.6 - 11.1 fL DIFFERENTIAL, AUTOMATED Result Value Ref Range WBC 7.77 4.00 - 10.80 K/uL Neutrophils % 57.1 40.0 - 75.0 % Lymphocytes % 16.3 (L) 18.0 - 42.0 % Monocytes % 5.7 1.0 - 11.0 % Eosinophils % 19.6 (H) 0.0 - 6.0 % Basophils % 1.3 0.0 - 2.0 % Absolute Neutrophils 4.44 1.80 - 7.70 K/uL Absolute Lymphocytes 1.27 1.00 - 4.80 K/ul Absolute Monocytes 0.44 0.00 - 1.10 K/uL Absolute Eosinophils 1.52 (H) 0.00 - 0.70 K/uL Absolute Basophils 0.10 0.00 - 0.20 K/uL IMPRESSION/PLAN: History of stage I Colon Cancer Anemia of chronic disease S/P laparoscopic assisted right colon resection and umbilical hernia repair on 11/01/2021 Lab results reviewed: Hgb stable at 10.7 Ast 62, alk phos 250, total bilirubin 2.0 - overall stable Ferritin, iron screen and CEA pending - will follow Patient adamantly refuses any further colonoscopies despite education Following with GI for GARCES cirrhosis. Scheduled for next EGD for EV surveillance in August. Continue ferrous sulfate one tablet daily. Tolerating well Continue clinical observation. Edema LLE History of DVT STAT Venous duplex LLE ordered Further recommendations based on results RTC in 6 months with provider with cbc/diff, cmp, iron screen, ferritin and cea CHEPE [facility]is documented in this encounter Nursing Notes * Tiffanie Patel, MED ASSIST - 04/13/2024 2:56 PM EDT Patient identifed by name and birthdate Do you have any concerns about pain management for today's visit? Yes. Patient instructed to discuss pain concerns with provider during the visit today Living Will or Advance Directive for Health Care as noted on the problem list. [facility] is a way you can talk to your provider on line through e-mail. Would you like to sign up? I can activate it for you? NO Filed Vitals: 04/13/24 1455 BP: 122/64 Pulse: 69 Temp: 36.8 C (98.2 F) TempSrc: Tympanic SpO2: 92% Weight: 97.9 kg (215 lb 14.4 oz) Patient was instructed to not get up on the exam table/exam chair until directed and assisted by their provider; patient is to remain seated in the chair/ wheelchair/ exam table/ exam chair for fall prevention and safety reasons. Patient is aware to have assistance to step down off exam table/exam chair with personnel. Patient voiced full comprehension of instructions. documented in this encounter Miscellaneous Notes * Pt Handout (on AVS) - Bette Ortiz CRNP - 04/13/2024 3:20 PM EDT [id number] Eating a High-Fiber Diet Fiber is what gives strength and form to plants. Most grains, beans, vegetables, and fruits containfiber. Foods rich in fiber are often low in calories and fat. Because they are starchy, they will fill you up more quickly than foods with low fiber and empty calories. Eating enough fiber daily is apowerful way to cut your risks for some health problems. To find out how much fiber in a serving of canned, packaged, or frozen foods, read the Nutrition Facts label. And aim for a steady supply of fiber each day. Types of fiber and their benefits Insoluble and soluble are 2 types of fiber. They both aid digestion and help maintain a healthy weight. Insoluble fiber. This is found in whole grains, cereals, certain fruits and vegetables, such as apple skin, corn, and carrots. Insoluble fiber helps prevent constipation. It also reduces the risk for some cancers. It's called insoluble because it doesn't dissolve in water. Soluble fiber. This type of fiber is in oats, beans, and certain fruits and vegetables, such as strawberries and peas. Soluble fiber supports healthy cholesterol levels. This helps lower the risk for heart disease. Eating enough soluble fiber is also a good way to control blood sugar levels. Look for high-fiber foods Try these foods to add fiber to your diet: Whole-grain breads and cereals. Aim for 6 to 8 ounces a day. Include whole grains, such as whole-wheat and oat bran cereals, oatmeal, whole-wheat muffins or toast, and corn tortillas in your meals. Fruits. Aim for 2 cups a day. Apples, oranges, strawberries, pears, and bananas are good sources. (Note: Fruit juice is low in fiber.) Vegetables. Aim for at least 2.5 cups a day. This might include asparagus, carrots, broccoli, peas, cabbage, beets, cucumbers, radishes, onions, squash, leafy greens (cooked and raw), [place] sprouts, and cauliflower to your meals on a regular basis. Beans. One cup of cooked lentils gives you over 15 grams of fiber. Try navy beans, black beans, lentils, flores beans and chickpeas. Nuts and seeds. A small handful of seeds gives you about 3 grams of fiber. Try flax seeds, sunflower, sesame, pumpkin or armand seeds. Nuts are also a great source of fiber. These include almonds, walnuts, pistachios, macadamia, and [place] nuts. Keep track of your fiber Keep track of how much fiber you eat. Read food labels. Then aim to eat a large variety of foods high in fiber every day. Start with breakfast. Ask your healthcare provider how much water you should drink as you start to eat more fiber. Water will keep your digestive system working smoothly. The daily recommended value for fiber intake is 25 grams a day. Some experts advise that women under 50 eat 25 to 28 grams per day. Men under 50 eat 30 to 38 grams per day. Your daily fiber needs drop to 22 grams for women and 28 grams for men after age 50. Before you reach for the fiber supplements, think about this. Fiber is found naturally in healthy whole foods. It gives you that feeling of fullness after you eat. Taking fiber supplements or eating fiber-enriched foods will not give you this full feeling. Nor will it give you all the nutrients youneed. Or vitamins and minerals that come from eating a whole food diet high in fiber. Your fiber intake is a good measure of the quality of your overall diet. You may be lacking other important nutrients as well if you are missing out on your daily amount of fiber. Last Reviewed Date: 09/16/202219996369-9832 [employer]. All rights reserved. This information is not intended as a substitute for professional medical care. Always follow your healthcare professional's instructions. documented in this encounter Plan of Treatment Upcoming Encounters Date Type Department Care Team (Latest Contact Info) Description 04/14/2024 3:30 PM EDT [facility] [address] [place] [address] 04/24/2024 2:00 PM EDT Office Visit Cardiology, [facility] [address] [place] [address] Elisa Jay PA-C [address] [place] [address] [place] [address] 09/04/2024 9:30 AM EST Hospital Encounter ENDO [facility], Endoscopy Room [facility] [address] [place] [phone] Sanjuana Baker MD [address] [place] [address] 09/04/2024 9:30 AM EST - 09/04/2024 10:00 AM EST Surgery ENDO [facility], Endoscopy Room [facility] [address] [place] [phone] Sanjuana Baker MD [address] [place] [address] ESOPHAGOGASTRODUODENOSCOPY (EGD), FLEXIBLE, TRANSORAL, DIAGNOSTIC 10/13/2024 3:00 PM EST Laboratory Laboratory [facility] [place] [address] [place] [phone] [facility] [address] [place] [address] 10/13/2024 4:00 PM EST Office Visit Hematology/Onco logy [facility] [place] [address] [facility] [place] [address] Bette Ortiz CRNP [address] [place] [id number] Scheduled Orders Name Type Priority Associated Diagnoses Order Schedule VASC DUPLEX VENOUS LE UNILAT Medical Imaging STAT Edema of left lower leg History of DVT (deep vein thrombosis) Ordered: 04/13/2024 CBC WITH WBC DIFFERENTIAL Lab STAT Encounter for follow-up examination after completed treatment for malignant neoplasm History of colon cancer, stage I Anemia, unspecified type Stage 3a chronic kidney disease (HCC) Every 6 Months for 2 Occurrences starting 04/13/2024 until 05/14/2025 COMPREHENSIVE METABOLIC PANEL Lab STAT Encounter for follow-up examination after completed treatment for malignant neoplasm History of colon cancer, stage I Anemia, unspecified type Stage 3a chronic kidney disease (HCC) Every 6 Months for 2 Occurrences starting 04/13/2024 until 05/14/2025 IRON SCREEN, INCLUDING TIBC Lab STAT Encounter for follow-up examination after completed treatment for malignant neoplasm History of colon cancer, stage I Anemia, unspecified type Stage 3a chronic kidney disease (HCC) Every 6 Months for 2 Occurrences starting 04/13/2024 until 05/14/2025 FERRITIN Lab STAT Encounter for follow-up examination after completed treatment for malignant neoplasm History of colon cancer, stage I Anemia, unspecified type Stage 3a chronic kidney disease (HCC) Every 6 Months for 2 Occurrences starting 04/13/2024 until 05/14/2025 CEA Lab STAT Encounter for follow-up examination after completed treatment for malignant neoplasm History of colon cancer, stage I Anemia, unspecified type Stage 3a chronic kidney disease (HCC) Every 6 Months for 2 Occurrences starting 04/13/2024 until 05/14/2025 Scheduled Procedures Name Priority Associated Diagnoses Date/Ti me ESOPHAGOGASTRODUODENOSCOPY ( EGD), FLEXIBLE, TRANSORAL, DIAGNOSTIC Esophageal varices (HCC) 09/04/2024 9:30 AM EST Health Maintenance Due Date Last Done Comments Depression Monitoring 1962 CKD PHOS USE SMARTSET 01783 1967 DTaP,Tdap,and Td Vaccines (1 - Tdap) 01/22/1968 Albumin/Creatinine Ratio 01/18/2010 009, 10/28/2006, 04/26/2006, Additional history exists Diabetic Foot Exam 03/18/2015 03/18/2014, 0 01/18/2009, 05/22/2007 COVID-19 Vaccine (2022- season) 2023 HbA1c 11/26/2023 05/28/2023, 0809/2022, 09/18/2007, Additional history exists Influenza Vaccine (FLU shot) (#1) 2024 06/06/2023, 07/09/2022, 07/03/2021, Additional history exists GFR 10/14/2024 04/13/2024, 09/17, 07/22/2023, Additional history exists Diabetic Eye Exam 12/16/2024 12/17/2023, 07/19/2007 CKD HGB USE SMARTSET 79863 04/13/202504/13, 04/13/2024, 10/14/2023, Additional history exists Colonoscopy [...] as of this encounter Visit Diagnoses Diagnosis Encounter for follow-up examination after completed treatment for malignant neoplasm- Primary Unspecified follow-up examination History of colon cancer, stage I Personal history of malignant neoplasm of large intestine Anemia, unspecified type Stage 3a chronic kidney disease (HCC) Edema of left lower leg History of DVT (deep vein thrombosis) Personal history of venous thrombosis and embolism Esophageal varices (HCC) Esophageal varices without mention of bleeding documented in this encounter Care Teams Sawdust Drier Relationship Specialty Start Date End Date Donovan Ruvalcaba CRNP [address] [place] [address] PCP - General Nurse Practitioner 03/20/24 documented as of this encounter
--- OUTSIDE RECORDS SUMMARY | 2024-09-14 19:11 | External Medical Summary ---
Author Name Unknown Address Unknown Organization K09:[facility] [place] [address] Laboratory Report Ordering Provider Test Date Status HAO HUERTAS 04/13/2024 13:44:02 Final Observation Date Value Abnormality Reference (Units ) Status BUN 04/13/2024 13:44:02 11 6-20 (mg/dL) Final Creatinine 04/13/2024 13:44:02 1.2 0.6-1.2 (mg/dL) Final Glomerular filtration rate/1.73 sq M.predicted [Volume Rate/Area] in Serum, Plasma or Blood by Creatinine-based formula (CKD-EPI) 04/13/2024 13:44:02 66 >=60 (mL/min) Final eGFR is calculated based on the CKD-EPI 2020 equation. Sodium 04/13/2024 13:44:02 142 135-146 (m mol/L) Final Potassium 04/13/2024 13:44:02 4.2 3.5-5.1 (m mol/L) Final Cl 04/13/2024 13:44:02 104 98-107 (mm ol/L) Final CO2 04/13/2024 13:44:02 27 22-32 (mmo l/L) Final Anion gap 04/13/2024 13:44:02 11 7-15 (mmol /L) Final Glucose 04/13/2024 13:44:02 181 Above high normal 70 -120 (mg/dL) Final Albumin 04/13/2024 13:44:02 3.4 Below low normal 3.8 -5.0 (g/dL) Final AST (Aspartate aminotransferase) 04/13/2024 13:44:02 62 Above high normal 10-50 (U/L) Final Alk Phos 04/13/2024 13:44:02 250 Above high normal 35 -130 (U/L) Final Bilirubin, Total 04/13/2024 13:44:02 2.0 Above high no rmal <=1.2 (mg/dL) Final Calcium 04/13/2024 13:44:02 8.8 8.4-10.2 ( mg/dL) Final Protein 04/13/2024 13:44:02 6.4 6.0-8.3 (g /dL) Final ALT (Alanine aminotransferase) 04/13/2024 13:44:02 32 10-50 (U/L) Lei loco Performing Location [facility] [place] [address]
--- OUTSIDE RECORDS SUMMARY | 2024-09-14 19:11 | External Medical Summary ---
Author Name Unknown Address Unknown Organization K01:[facility] - [address] [place] [address] Laboratory Report Ordering Provider Test Date Status KIYAHAO 04/13/2024 13:44:02 Final Observation Date Value Abnormality Reference (Units ) Status Ferritin 04/13/2024 13:44:02 51 30-400 (ng /mL) Final Performing Location [facility] [address] [place] [address]
--- OUTSIDE RECORDS SUMMARY | 2024-09-14 19:11 | External Medical Summary | Summary of Care ---
Author Name Unknown Organization [facility] Address [address] [facility] [address] Phone [phone] Care Team Providers Care Polarity Tester Name Role Phone Donovan Ruvalcaba Primary Care Provide r Reason for Visit * Reason Comments Outpatient Testing Encounter Details Date Type Department Care Team (Late st Contact Info) Description 04/13/2024 2:00 PM EDT Laboratory Laboratory [facility] [address] [place] [address] [facility] [address] [place] [address] Malignant neoplasm of colon, unspecified part of colon (HCC); Anemia, unspecified type; Stage 3a chronic kidney disease (HCC); Acute on chronic heart failure with preserved ejection fraction (HCC) Allergies Active Allergy Reactions Criticality Noted Date Comments Iodinated Contrast Media High 07/13/2021 MRI Other Reaction(s): Vomiting Quinolones Unknown 04/08/1998 ? yrs. ago? documented as of this encounter (statuses as of 04/13/2024) Medications Medication Sig Dispensed Refills Start Date End Date Status ONE TOUCH LANCETS MISCIndications:DM type 2, not at goal ([facility]) as directed 100 5 02/10/2002 Active METFORMIN HCL 1000 MG PO TABSIndications:DM type 2, not at goal ([facility]) 1 by mouth twice a day 180 3 12/05/2006 Active ONE TOUCH STRP VIIndications:DM type 2, not at goal ([facility]) once daily 50 5 05/22/2007 Active ASPIRIN [...] colic on left side 06/30/2014 Overview: admitted [facility], cystoscopy, ureteroscopy, lithrotripsy, with ureteral stent DYSLIPIDEMIA, [...] Department Care Team (Latest Contact Info) Description 04/13/2024 3:00 PM EDT Office Visit Hematology/Oncol bijal [facility] [address] [place] [facility] [place] [address] Bette Ortiz CRNP [address] [place] [phone] Arrived 04/24/2024 2:00 PM EDT Office Visit Cardiology, [facility] [address] [place] [address] Elisa Jay PA-C [address] [place] [phone] 09/04/2024 9:30 AM EST Hospital Encounter ENDO [facility], Endoscopy Room [facility] [address] [place] [phone] Sanjuana Baker MD [address] [place] [address] 09/04/2024 9:30 AM EST - 09/04/2024 10:00 AM EST Surgery ENDO [facility], Endoscopy Room [facility] [address] [place] [phone] Sanjuana Baker MD [address] [place] [address] ESOPHAGOGASTRODUODENOSCOPY (EGD), FLEXIBLE, TRANSORAL, DIAGNOSTIC Pending Results Name Type Priority Associated Diagnoses Date /Time COMPREHENSIVE METABOLIC PANEL Lab STAT Malignant neoplasm of colon, unspecified part of colon (HCC) Anemia, unspecified type Stage 3a chronic kidney disease (HCC) 04/13/2024 1:44 PM EDT IRON SCREEN, INCLUDING TIBC Lab STAT Malignant neoplasm of colon, unspecified part of colon (HCC) Anemia, unspecified type Stage 3a chronic kidney disease (HCC) 04/13/2024 1:44 PM EDT FERRITIN Lab STAT Malignant neoplasm of colon, unspecified part of colon (HCC) Anemia, unspecified type Stage 3a chronic kidney disease (HCC) 04/13/2024 1:44 PM EDT CEA Lab STAT Malignant neoplasm of colon, unspecified part of colon (HCC) Anemia, unspecified type Stage 3a chronic kidney disease (HCC) 04/13/2024 1:44 PM EDT Scheduled Procedures Name Priority Associated Diagnoses Date/Ti ut ESOPHAGOGASTRODUODENOSCOPY ( EGD), FLEXIBLE, TRANSORAL, DIAGNOSTIC Esophageal varices (HCC) 09/04/2024 9:30 AM EST Health Maintenance Due Date Last Done Comments Depression Monitoring 1962 CKD PHOS USE SMARTSET 09913 1967 DTaP,Tdap,and Td Vaccines (1 - Tdap) 01/22/1968 Albumin/Creatinine Ratio 01/18/2010 009, 10/28/2006, 04/26/2006, Additional history exists Diabetic Foot Exam 03/18/2015 03/18/2014, 0 01/18/2009, 05/22/2007 COVID-19 Vaccine ( season) 2023 HbA1c 11/26/2023 05/28/2023, 09/2022, 09/18/2007, Additional history exists GFR 04/13/2024 10/14/2023, 02/2023, 05/28/2023, Additional history exists Influenza Vaccine (FLU shot) (#1) 2024 06/06/2023, 07/09/2022, 07/03/2021, Additional history exists Diabetic Eye Exam 12/16/2024 12/17/2023, 07/19/2007 CKD HGB USE SMARTSET 01802 04/13/202504/13, 04/13/2024, 10/14/2023, Additional history exists Colonoscopy [...] Procedure Name Priority Date/Time Associated Diagnosis Comments DIFFERENTIAL, AUTOMATED STAT 04/13/2024 1:44 PM EDT Malignant neoplasm of colon, unspecified part of colon (HCC) Anemia, unspecified type Stage 3a chronic kidney disease (HCC) CBC STAT 04/13/2024 1:44 PM EDT Malignant neoplasm of colon, unspecified part of colon (HCC) Anemia, unspecified type Stage 3a chronic kidney disease (HCC) CBC STAT 04/13/2024 1:44 PM EDT Malignant neoplasm of colon, unspecified part of colon (HCC) Anemia, unspecified type Stage 3a chronic kidney disease (HCC) documented in this encounter Results * (ABNORMAL) DIFFERENTIAL, AUTOMATED (04/13/2024 1:44 PM EDT) WBC 7.77 4.00 - 10.80 K/uL 04/13/2024 1:56 PM EDT [facility] 56- Neutrophils % 57.1 40.0 - 75.0 % 04/13/2024 1:56 PM EDT [facility] 56- Lymphocytes % 16.3(L) 18.0 - 42.0 % 04/13/2024 1:56 PM EDT [facility] 56- Monocytes % 5.7 1.0 - 11.0 % 04/13/2024 1:56 PM EDT [facility] 56- Eosinophils % 19.6(H) 0.0 - 6.0 % 04/13/2024 1:56 PM EDT [facility] 56 Basophils % 1.3 0.0 - 2.0 % 04/13/2024 1:56 PM EDT [facility] 56 Absolute Neutrophils 4.44 1.80 - 7.70 K/uL 04/13/2024 1:56 PM EDT [facility] 56- Absolute Lymphocytes 1.27 1.00 - 4.80 K/ul 04/13/2024 1:56 PM EDT [facility] 56- Absolute Monocytes 0.44 0.00 - 1.10 K/uL 04/13/2024 1:56 PM EDT [facility] 56 Absolute Eosinophils 1.52(H) 0.00 - 0.70 K/uL 04/13/2024 1:56 PM EDT [facility] 56 Absolute Basophils 0.10 0.00 - 0.20 K/uL 04/13/2024 1:56 PM EDT [facility] 56 Blood Venous blood specimen / Unknown Venipuncture / Unknown 04/13/2024 1:44 PM EDT 04/13/2024 1:45 PM EDT [place] LAB BLOOD ORDER POLINA [facility] [address] [place] [address] * (ABNORMAL) CBC (04/13/2024 1:44 PM EDT) WBC 7.77 4.00 - 10.80 K/uL 04/13/2024 1:56 PM EDT [facility] 56 RBC 4.03 4.50 - 5.25 M/uL 04/13/2024 1:56 PM EDT [facility] 56 HGB 10.7(L) 14.0 - 16.8 g/dL 04/13/2024 1:56 PM EDT [facility] 56 HCT 34.6(L) 40.0 - 48.4 % 04/13/2024 1:56 PM EDT [facility] 56 MCV 85.9 82.0 - 99.5 fL 04/13/2024 1:56 PM EDT [facility] 56 MCH 26.6 27.0 - 34.0 pg 04/13/2024 1:56 PM EDT [facility] 56 MCHC 30.9 32.0 - 36.0 g/dL 04/13/2024 1:56 PM EDT [facility] 56 RDW 17.5 11.5 - 15.5 % 04/13/2024 1:56 PM EDT [facility] 56 PLT 138(L) 140 - 400 K/uL 04/13/2024 1:56 PM EDT [facility] 56 MPV 9.3 6.6 - 11.1 fL 04/13/2024 1:56 PM EDT [facility] 56 Blood Venous blood specimen / Unknown Venipuncture / Unknown 04/13/2024 1:44 PM EDT 04/13/2024 1:45 PM EDT [place] LAB BLOOD ORDER POLINA [facility] [address] [place] [address] documented in this encounter Visit Diagnoses Diagnosis Malignant neoplasm of colon, unspecified part of colon (HCC) Anemia, unspecified type Stage 3a chronic kidney disease (HCC) Acute on chronic heart failure with preserved ejection fraction (HCC) Esophageal varices (HCC) Esophageal varices without mention of bleeding documented in this encounter Care Teams Polarity Tester Relationship Specialty Start Date End Date Donovan Ruvalcaba CRNP [address] [place] [address] PCP - General Nurse Practitioner 03/20/24 documented as of this encounter
--- OUTSIDE RECORDS SUMMARY | 2024-09-14 19:11 | External Medical Summary ---
Author Name Unknown Address Unknown Organization K09[facility] [place] [address] Laboratory Report Ordering Provider Test Date Status HAO HUERTAS 04/13/2024 13:44:02 Final Observation Date Value Abnormality Reference (Units ) Status SYNC LEUKOCYTES IN BLOOD BY AUTOMATED COUNT 04/13/2024 13:44:02 7.77 4.00-10.80 (K/uL) Final Segs 04/13/2024 13:44:02 57.1 40.0-75.0 (%) Final Lymphs % 04/13/2024 13:44:02 16.3 Below low normal 18.0-42.0 (%) Final Monos 04/13/2024 13:44:02 5.7 1.0-11.0 (%) Final Eosinophils 04/13/2024 13:44:02 19.6 Above high normal 0.0-6.0 (%) Final Basos 04/13/2024 13:44:02 1.3 0.0-2.0 (%) Final Absolute Segs 04/13/2024 13:44:02 4.44 1.80-7.70 (K/uL) Final Lymphs, absolute 04/13/2024 13:44:02 1.27 1.00-4.80 (K/ul) Final Monos, Abs 04/13/2024 13:44:02 0.44 0.00-1.10 (K/uL) Final Eos, Abs 04/13/2024 13:44:02 1.52 Above high normal 0.00-0.70 (K/uL) Final Basos, Abs 04/13/2024 13:44:02 0.10 0.00-0.20 (K/uL) Final Performing Location [facility] [place] [address]
--- OUTSIDE RECORDS SUMMARY | 2024-09-14 19:11 | External Medical Summary | Summary of Care ---
Author Name Unknown Organization [facility] Address [address] [facility] [place] [address] Phone [phone] Care Team Providers Care Hydrotherapist Name Role Phone Donovan Ruvalcaba Primary Care Provide r Reason for Visit * Reason Onset Date Comments Test Results 04/13/2024 Encounter Details Date Type Department Care Team (Late st Contact Info) Description 04/13/2024 Telephone Cardiology, [place] [address] [place] [address] Elisa [place] PA-C [address] [facility] [address] [address] [address] Test Results Allergies Active Allergy Reactions Criticality Noted Date [...] colic on left side 06/30/2014 Overview: admitted [facility], cystoscopy, ureteroscopy, lithrotripsy, with ureteral stent [...] encounter Miscellaneous Notes * Telephone Encounter - Jasmina Lobo CMA - 04/13/2024 4:20 PM EDT Letter mailed. * Telephone Encounter - Jasmina Lobo CMA - 04/13/2024 4:20 PM EDT ----- Message from Elisa [place] sent at 04/13/2024 4:00 PM EDT ----- Stable labs, continue current medications. documented in this encounter Plan of Treatment Upcoming Encounters Date Type Department Care Team (Latest Contact Info) Description 04/14/2024 3:30 PM EDT Imaging Vascular Lab, [facility] 2nd [facility] [address] [facility] [place] [address] 04/24/2024 2:00 PM EDT Office Visit Cardiology, [address] [place] [address] Elisa [place] PA-C [address] [place] [address] 09/04/2024 9:30 AM EST Hospital Encounter ENDO [facility], Endoscopy Room [facility] [address] [place], [place] [phone] Sanjuana Baker MD [address] [place] [address] 09/04/2024 9:30 AM EST - 09/04/2024 10:00 AM EST Surgery ENDO [facility], Endoscopy Room [facility] [address] [place], [place] [phone] Sanjuana Baker MD [address] [place], [place] [address] ESOPHAGOGASTRODUODENOSCOPY (EGD), FLEXIBLE, TRANSORAL, DIAGNOSTIC 10/13/2024 3:00 PM EST Laboratory Laboratory [facility] [place] [address] [place] [phone] [place], Lab [facility] [address] [facility] [place] [address] 10/13/2024 4:00 PM EST Office Visit Hematology/Onco logy [facility] [address] [place] [phone] Bette Ortiz CRNP [address] [place] [address] Scheduled Procedures Name Priority Associated Diagnoses Date/Ti me ESOPHAGOGASTRODUODENOSCOPY ( EGD), FLEXIBLE, TRANSORAL, DIAGNOSTIC Esophageal varices (HCC) 09/04/2024 9:30 AM EST Health Maintenance Due Date Last Done Comments Depression Monitoring 1962 CKD PHOS USE SMARTSET 90961 1967 DTaP,Tdap,and Td Vaccines (1 - Tdap) [...] 12/16/2024 12/17/2023, 07/19/2007 CKD HGB USE SMARTSET 66109 04/13/202504/13, 04/13/2024, 10/14/2023, Additional history exists Colonoscopy [...] filedocumented as of this encounter Care Teams Hydrotherapist Relationship Specialty Start Date End Date Donovan Ruvalcaba CRNP [address] [place] [address] PCP - General Nurse Practitioner 03/20/24 documented as of this encounter
--- OUTSIDE RECORDS SUMMARY | 2024-09-14 19:11 | External Medical Summary ---
Author Name Unknown Address Unknown Organization K01:[facility] - [address] [place] [address] Laboratory Report Ordering Provider Test Date Status HAO HUERTAS 04/13/2024 13:44:02 Final Observation Date Value Abnormality Reference (Units ) Status Iron 04/13/2024 13:44:02 139 45-176 (ug /dL) Final Iron-binding capacity 04/13/2024 13:44:02 387 250-425 (ug/dL) Final Transferrin Sat % 04/13/2024 13:44:02 36 15 -55 (%) Final Performing Location [facility] - [address] [place] [address]
--- OUTSIDE RECORDS SUMMARY | 2024-09-14 19:11 | External Medical Summary | Summary of Care ---
Author Name Unknown Organization [facility] Address [address] [place] [address] Phone [phone] Care Team Providers Care Tower Helper Name Role Phone Donovan Ruvalcaba Primary Care Provide r Reason for Referral * Evaluate & Treat - Unlimited Visits (Within 10 days (routine)) - Authorized Specialty Diagnoses / Procedures Referred By Radha viera Referred To Contact Hematology/Oncology / Hematology Oncology Diagnoses Anemia, unspecified Donovan Ruvalcaba CRNP [address] [place] [address] Referral ID Status Reason Start Date Expiration Date Visits Requested Visits Authorized [id number] Authorized Specialty Services Required 03/31/2024 09/22/[phone] Question Answer Referral Priority Within 10 days (routine) Where should this appointment be scheduled? [facility] Reason for Referral Anemia Comments Anemia Encounter Details Date Type Department Care Team (Late st Contact Info) Description 03/31/2024 Orders Only Access Center, [place] [address] [place] [address] Ext *DO NOT REMOVE THIS DEPARTMENT* [place] [address] Request, External Referral Anemia, unspecified* Allergies Active Allergy Reactions Criticality Noted Date Comments Iodinated Contrast Media High 07/13/2021 MRI Other Reaction(s): Vomiting Quinolones Unknown 04/08/1998 ? yrs. ago? documented as of this encounter (statuses as of 03/31/2024) Medications Medication Sig Dispensed Refills Start Date [...] as of this encounter (statuses as of 03/31/2024) Active Problems Problem Noted Date Diagnosed Date Renal colic on left side 06/30/2014 Overview: admitted [facility], cystoscopy, ureteroscopy, lithrotripsy, with [...] as of this encounter (statuses as of 03/31/2024) Resolved Problems Problem Noted Date Diagnosed Date [...] as of this encounter (statuses as of 03/31/2024) Immunizations Name Administration Dates Next Due Pneumococcal [...] Care Team (Latest Contact Info) Description 04/13/2024 2:00 PM EDT Laboratory [place] [address] [phone] [facility] [place] [address] 04/13/2024 3:00 PM EDT Office Visit Hematology/[place] [address] [phone] Bette Ortiz CRNP [address] [place] [address] [place] [address] 04/24/2024 2:00 PM EDT Office Visit Cardiology, [facility] [address] [place] [address] Elisa [place] PA-C [address] [place] [address] 09/04/2024 9:30 AM EST Hospital Encounter [facility]O [facility], Endoscopy Room [facility] [address] [place] [phone] Sanjuana Baker MD [address] [place] [address] 09/04/2024 9:30 AM EST - 09/04/2024 10:00 AM EST Surgery ENDO [facility], Endoscopy Room [facility] [address] [place] [phone] Sanjuana Baker MD [address] [place] [address] ESOPHAGOGASTRODUODENOSCOPY (EGD), FLEXIBLE, TRANSORAL, DIAGNOSTIC Scheduled Procedures Name Priority Associated Diagnoses Date/Ti me ESOPHAGOGASTRODUODENOSCOPY ( EGD), FLEXIBLE, TRANSORAL, DIAGNOSTIC Esophageal varices (HCC) 09/04/2024 9:30 AM EST Scheduled Referrals Name Type Priority Associated Diagnoses Orde r Schedule HEMATOLOGY/ONCOLOGY REFERRAL OP Referral Within 10 days (routine) Anemia, unspecified Ordered: 03/31/2024 Health Maintenance Due Date Last Done Comments Depression Monitoring 1962 CKD PHOS USE SMARTSET 76928 1967 DTaP,Tdap,and Td Vaccines (1 - Tdap) 01/22/1968 Albumin/Creatinine Ratio 01/18/2010 009, 10/28/2006, 04/26/2006, Additional history exists Diabetic Foot Exam 03/18/2015 03/18/2014, 0 01/18/2009, 05/22/2007 COVID-19 Vaccine (2022- season) 2023 HbA1c 11/26/2023 05/28/2023, 0809/2022, 09/18/2007, Additional history exists GFR 04/13/2024 10/14/2023, 02/2023, 05/28/2023, Additional history exists Influenza Vaccine (FLU shot) (#1) 2024 06/06/2023, 07/09/2022, 07/03/2021, Additional history exists CKD HGB USE SMARTSET 76765 10/14/202410/14, 10/14/2023, 07/22/2023, Additional history exists Diabetic Eye Exam 12/16/2024 12/17/2023, 07/19/2007 Colonoscopy 07/24/2026 07/24/2021, 04/2021, 09/15/2018, Additional history [...] as of this encounter Visit Diagnoses Diagnosis Anemia, unspecified- Primary Esophageal varices (HCC) Esophageal varices without mention of bleeding documented in this encounter Care Teams Tower Helper Relationship Specialty Start Date End Date Donovan Ruvalcaba CRNP [address] [facility], [place] [address] PCP - General Nurse Practitioner 03/20/24 documented as of this encounter
--- OUTSIDE RECORDS SUMMARY | 2024-09-14 19:11 | External Medical Summary ---
Author Name Unknown Address Unknown Organization K01:[facility] - [address] [place] [address] Laboratory Report Ordering Provider Test Date Status HAO HUERTAS 04/13/2024 13:44:02 Final Observation Date Value Abnormality Reference (Units ) Status CEA 04/13/2024 13:44:02 2.6 <=5.2 (ng/ mL) Final Performing Location [facility] - [address] [place] [address]
--- OUTSIDE RECORDS SUMMARY | 2024-09-14 19:11 | External Medical Summary ---
Author Name Unknown Address Unknown Organization K09:[facility] [address] [place] [address] Laboratory Report Ordering Provider Test Date Status HAO HUERTAS 04/13/2024 13:44:02 Final Observation Date Value Abnormality Reference (Units ) Status WBC, Total 04/13/2024 13:44:02 7.77 4.00-10.8 0 (K/uL) Final RBC 04/13/2024 13:44:02 4.03 4.50-5.25 (M/uL) Final Hemoglobin 04/13/2024 13:44:02 10.7 Below low normal 14 .0-16.8 (g/dL) Final HCT 04/13/2024 13:44:02 34.6 Below low normal 40. 0-48.4 (%) Final MCV 04/13/2024 13:44:02 85.9 82.0-99.5 (fL) Final MCH 04/13/2024 13:44:02 26.6 27.0-34.0 (pg) Final MCHC 04/13/2024 13:44:02 30.9 32.0-36.0 (g/dL) Final RDW 04/13/2024 13:44:02 17.5 11.5-15.5 (%) Final Platelets 04/13/2024 13:44:02 138 Below low normal 140 -400 (K/uL) Final MPV 04/13/2024 13:44:02 9.3 6.6-11.1 ( fL) Final Performing Location [facility] [place] [address]
[2024-09-14] MEDS: INSULIN ASPART PER UNIT CHARGE SC SCH (20:15)
[2024-09-14] MEDS: ENOXAPARIN INJ 40 MG/0.4 ML SYR SQ SCH (20:16)
[2024-09-14] MEDS ORDERED: LANTUS PER UNIT CHARGE SQ SCH (21:00)
[2024-09-14] MEDS: ATORVASTATIN 40 MG TAB PO SCH (22:56)
[2024-09-15 04:10] LABS: Basophils # (auto) 0.04 K/uL (0.00-0.20); Basophils % (auto) 0.7 %; Eosinophils # (auto) 0.26 K/uL (0.00-0.50); Eosinophils % (auto) 4.4 %; Hemoglobin 7.7 g/dl (14.0-18.0); Immature Granulocytes # (auto) 0.04 K/uL (0.01-0.20); Immature Granulocytes % (auto) 0.7 %; Lymphocytes # (auto) 1.05 K/uL (1.20-3.40); Lymphocytes % (auto) 17.7 %; Mean Corpuscular Hemoglobin 23.1 pg (25.0-34.0); Mean Corpuscular Hgb Conc 30.8 g/dL (32.0-36.0); Mean Corpuscular Volume 75.1 fL (80.0-100.0); Monocytes # (auto) 0.43 K/uL (0.11-0.59); Monocytes % (auto) 7.3 %; Neutrophils # (auto) 4.11 K/uL (1.40-6.50); Neutrophils % (auto) 69.2 %; Platelet Count 111 K/uL (130-400); RDW Coefficient of Variation 14.6 % (11.5-14.5); RDW Standard Deviation 38.8 fL (36.4-46.3); Red Blood Count 3.33 M/uL (4.70-6.10); White Blood Count 5.93 K/ul (4.8-10.8)
[2024-09-15 04:28] LABS: Albumin Globulin Ratio 1.1 (0.9-2); Albumin Level 3.2 gm/dl (3.4-5.0); BUN Creatinine Ratio 18.3 (10-20); Bilirubin,Total 2.1 mg/dl (0.2-1.0); Calcium 8.5 mg/dl (8.6-10.3); Creatinine Clr Calc Pharmacy 53.2 ml/min; Potassium 3.6 mmol/L (3.5-5.1); Total Protein 6.2 gm/dl (6.0-8.3)
[2024-09-15 04:34] LABS: Polychromasia 1+
[2024-09-15 08:21] LABS: Estimated Average Glucose > 438 mg/dl; Hemoglobin A1C > 16.9 % (4.5-5.6)
[2024-09-15] MEDS: PANTOprazole 40 MG TAB PO SCH (08:21)
[2024-09-15] MEDS: PANTOprazole 40 MG TAB ONE (08:21)
[2024-09-15] MEDS: ESCITALOPRAM OXALATE 10 MG TAB PO SCH (08:21)
[2024-09-15] MEDS: TAMSULOSIN HCL 0.4 MG CAP PO SCH (08:21)
[2024-09-15] MEDS: allopurinoL 100 MG TAB PO SCH (08:22)
[2024-09-15] MEDS: FUROSEMIDE 40 MG TAB PO SCH (08:22)
[2024-09-15] MEDS: FERROUS SULFATE 325 MG TAB PO SCH (08:22)
[2024-09-15] MEDS: LANTUS PER UNIT CHARGE SC ONE (08:27)
[2024-09-15 10:19] LABS: Ferritin 9.8 ng/ml (8-388)
--- NOTE | 2024-09-15 10:26 | Pharmacy Report ---
Pharmacy Glycemic Short Note 2 - Date of Service September 15, 2024 - Glycemic Short BSG Results (Last 24 hours): 09/14/24 09/14/24 09/14/24 14:10 16:34 17:32 Glucose 745 H* POC Glucose > 600 H* > 600 H* 09/14/24 09/14/24 09/14/24 19:58 21:00 22:01 Glucose POC Glucose 575 H* 566 H* 492 H* 09/14/24 09/14/24 09/15/24 22:59 Unknown 00:04 Glucose 589 H* POC Glucose 435 H* 322 H* 09/15/24 09/15/24 09/15/24 00:57 02:05 03:08 Glucose POC Glucose 253 H 183 H 178 H 09/15/24 09/15/24 09/15/24 03:47 04:05 05:03 Glucose 141 H POC Glucose 154 H 146 H 09/15/24 09/15/24 09/15/24 06:03 07:02 08:24 Glucose POC Glucose 181 H 134 H 162 H 09/15/24 10:08 Glucose POC Glucose 184 H OUTPATIENT ANTIDIABETIC REGIMEN: * Lantus 44 units bid, empagliflozin 25 mg once daily, ozempic 0.25 mg SQ weekly ASSESSMENT: * 74 year old admitted for hyperglycemia last evening, started on insulin infusion. Labs stable, insulin drip initiated for hyperglycemia. Per provider notes, patient currently not taking home diabetic medications. Insulin infusion running this AM ~3.6 units/hr - Will give Lantus 60 units x 1 now to overlap with insulin infusion. Dosing is similar to another prior admission. Will d/c insulin infusion at noon and transition to SQ moving forward. May potentially add on Lantus scale for HS in case BSGs trend upwards. PLAN FOR INPATIENT GLYCEMIC CONTROL: * Hold outpatient oral diabetes medications * Basal insulin * Lantus 60 units x 1 (overlap with insulin infusion) * Bolus insulin * NovoLog per scale ACHS or Q6hrs while NPO * Goal Range: Low 110 mg/dL - High 140 mg/dL * Correction Factor: 15 mg/dL/unit * Nutritional / Prandial insulin per carb ratio of 1 unit per 5 grams CHO consumed
--- NOTE | 2024-09-15 10:35 | Psychiatric Consultation ---
Date of Consultation September 15, 2024 Impression / Recommendations Impression Diagnostically consistent with unspecified depressive disorder-suspect possible MDD vs 2/2 cognitive changes with disinhibition and personality changes/prefrontal cortex changes. Seems symptoms have worsened with confusion related to his medications including how to organize and take his SSRI escitalopram (15mg daily) and increased physical limitations due to difficulty ambulating. Acute risk of self-harm is high given SI with plan and access to multiple guns at home. Acute risk of harm to others is also high as he reports HI with thought of shooting his and endorses physical aggression toward her recently using his cane. Once medically stable plan for likely inpatient psychiatry bed search. He is currently voluntary for inpatient psychiatric treatment but if he asked to leave he would meet 302 criteria given high risk of self-harm and high risk of harm to others. Overall, I spent a total of 60 minutes with this case including review of chart records, review of labwork, direct evaluation of the patient at bedside, counseling the patient, discussion of the patient with the hospitalist provider, discussion with the psychiatric liason during clinical rounds and documentation in the electronic health record. (1) Suicidal ideation: (2) Homicidal ideation: (3) Depression with suicidal ideation: Plan -Continue 1:1 and suicide precautions, he may not leave AMA would meet 302 criteria if asks to leave-if attempts security and psych liason should be called , currently states he'd be voluntary for inpatient psych tx once medically stable -Once hyperglycemia has stabilized consider geriatric psychiatry vs [facility] inpatient psychiatry referral -Psych liason/CM to notify APS given concerns for his aggression toward especially as he describes her as having possible cognitive decline -Would recommend MOCA as suspect possible cognitive decline contributing to disinhibition and possible increased emotional distress, may offer additional tx target and/or treatment needs (i.e. fci placement) if he continues to struggle with cognitive tasks/recall/organizing his medications. -Psych liason to get collateral from his (if she's able) and son to further clarify concerns for possible cognitive decline/dementia component and/or any other safety concerns -Guns need to be secured prior to return to home -Once contact can be made with his then duty to warn to be done given his statements of HI Psych History Identifying Data 74 yo man with a history of major depressive disorder, panic disorder, sick sinus syndrome status post pacemaker, diabetes type 2 with polyneuropathy, hypertension, CKD stage III who was admitted for suicidal ideation and hyperglycemia. Psychiatry consulted for risk assessment/recommendations. Chief Complaint "Not good". History of Present Illness Simone presented to the hospital after being seen by his PCP at the [facility] where he reported SI with plan. Today he continues to express SI with plan to "shoot myself" which he attributes to missing his medications (possibly for last few months) due to confusion filling his pill organizer (starting about 1.5 months ago), increased physical limitations "I can't walk" "my feet don't work". Also endorses HI toward his noting possible plan would be to shoot her and then himself. States he's been arguing with his and at times hits her with his cane. Describes frustration that his can't cook anymore so he only eats unhealthy things and that he is also responsible for helping her with her medications but that "I didn't know what to take". Endorses increased memory issues recently and confusion. Today he is A&Ox3. He isn't sure if his son or knows he is in the hospital, doesn't think his will answer the phone and if she does notes that she is "practically deaf". Endorses depressed mood with decreased sleep. Denies hx of prior suicide attempts. Has access to ~10 guns at home per his report. States some days his son, Cedric, stops by to check on he and his . He is willing for psychiatric hopsitalization once medically stable. Allergies Allergy/AdvReac Type Severity Reaction Status Date / Time Iodinated Contrast Media AdvReac Intermediate Vomiting Verified 03/24/24 15:16 Home Medications Medication Instructions Recorded Confirmed Type allopurinol 100 mg tablet 100 mg PO QAM 06/24/19 09/14/24 History empagliflozin 25 mg tablet 25 mg PO QAM 10/19/21 09/14/24 History semaglutide 1 mg/dose (4 mg/3 mL) 0.25 mg subcut WK 04/17/22 09/14/24 History subcutaneous pen injector (Ozempic) ascorbic acid (vitamin C) 500 mg 250 mg PO DAILY 10/16/22 09/14/24 History tablet,extended release (Vitamin C ER) ferrous sulfate 325 mg (65 mg 325 mg PO DAILY 10/16/22 09/14/24 History iron) tablet atorvastatin 80 mg tablet 80 mg PO ONCE HS 01/27/24 09/14/24 History glucose 4 gram chewable tablet 4 g PO Q15M PRN Hypoglycemia 01/27/24 09/14/24 History alfuzosin 10 mg tablet,extended 10 mg PO DAILY #90 tabs 03/24/24 09/14/24 Rx release 24 hr escitalopram oxalate 5 mg tablet 15 mg PO DAILY 09/14/24 09/14/24 History furosemide 20 mg tablet 40 mg PO QAM 09/14/24 09/14/24 History insulin glargine 100 unit/mL (3 44 unit subcut BID 09/14/24 09/14/24 History mL) subcutaneous pen pantoprazole 40 mg tablet,delayed 40 mg PO DAILY 09/14/24 09/14/24 History release Patient History Medical History Anemia BMI 34.0-34.9,adult Cancer COLON-REASON FOR SURGERY Chronic obstructive pulmonary disease LAST INHALER USE LAST WEEK CKD (chronic kidney disease) stage 3, GFR 30-59 ml/min Diabetes mellitus Dyslipidemia History of kidney stones History of pulmonary embolus (PE) REMOTE HX / LEG IN A A CAST - NO PROBLEMS SINCE Hypertension Neuropathy Obesity Sleep apnea CPAP/DOESN'T USE SOB (shortness of breath) on exertion 1 FLIGHT-"OUT OF SHAPE" Surgical History History of cholecystectomy History of colonoscopy 2020 History of esophagogastroduodenoscopy (EGD) (02/19/23) Dr. Baker History of total right knee replacement Hx of foot surgery LEFT HEEL Hx of repair of rotator cuff R&L S/P colon resection (10/26/21) Laparoscopic Assisted Right Colon Resection, Umbilical Hernia Repair- Singh Ambrose MD, FACS 10/26/2021 Status post laser lithotripsy of ureteral calculus 12/18/19 Family History Grandmother Diabetes Mother Breast cancer Sister Breast cancer Social History Smoking Status: Former smoker packs per day: 1; Second Hand Exposure: No; Do You Dip or Chew Tobacco: No; Hx Alcohol Use: No Hx Substance Use: No Preferred Language: Faroese Communication Ability: Effective C.O.D. Audit Clerk Required: No Beliefs That Will Affect Care: None marital status: Current Living Situation: Spouse Current Living Situation Comment: house, states needs help current occupational status: retired How many Children do You have: 1 Feels Safe at Home: Yes during the past year weight has: remained stable Assistive Devices: Cane Physical Exam Psychiatric: Orientation: alert and oriented x 3 Apperance: + disheveled Eye Contact: + fair eye contact Motor Behavior: no abnormal motor movements Speech: + abnormal rate/rhythm/volume of speech (soft, mumbled at times) Affect: + constricted affect Mood: + depressed mood Thought Process: + circumstantial thought process Thought Content: reality based without delusions Suicidal Thoughts: denies suicidal intent (feels safe in the hospital); + reports suicidal thoughts and + reports suicidal plan Homicidal Thoughts: denies homicidal intent; + reports homicidal thoughts and + reports homicidal plan Hallucinations: no auditory hallucinations and no visual hallucinations Insight: + poor insight Judgment: + poor judgement Vital Signs (Past 24 Hours): Last Vital Signs Temp 36.6 C 09/14/24 13:15 Pulse 79 09/15/24 08:48 Resp 20 09/15/24 08:48 BP 120/70 09/15/24 08:48 Pulse Ox 99 09/15/24 06:42 O2 Del Method Nasal Cannula 09/15/24 06:42 O2 Flow Rate 4 09/15/24 06:42 Results & Data (PSY) Medications Administered Allopurinol (Allopurinol 100 Mg Tab) 100 mg PO QAM DEVIN Stop: 10/15/24 08:59 Last Admin: 09/15/24 08:22 Dose: 100 mg Documented By: JI Atorvastatin Calcium (Atorvastatin 40 Mg Tab) 80 mg PO HS DEVIN Stop: 10/14/24 20:59 Last Admin: 09/14/24 22:56 Dose: 80 mg Documented By: MALIK Enoxaparin Sodium (Enoxaparin Inj 40 Mg/0.4 Ml Syr) 40 mg SQ Q24H DEVIN Stop: 10/14/24 17:59 Last Admin: 09/14/24 20:16 Dose: Not Given Documented By: MALIK Escitalopram Oxalate (Escitalopram Oxalate 10 Mg Tab) 15 mg PO DAILY [facility] Stop: 10/15/24 08:59 Last Admin: 09/15/24 08:21 Dose: 15 mg Documented By: JI Ferrous Sulfate (Ferrous Sulfate 325 Mg Tab) 325 mg PO DAILY [facility]IN Stop: 10/15/24 08:59 Last Admin: 09/15/24 08:22 Dose: 325 mg Documented By: ARS Furosemide (Furosemide 40 Mg Tab) 40 mg PO QAM [facility] Stop: 10/15/24 08:59 Last Admin: 09/15/24 08:22 Dose: 40 mg Documented By: JI Promethazine HCl (Phenergan) 6.25 mg in 50.25 mls @ 201 mls/hr IV Q6H PRN PRN Reason: Nausea And Vomiting Stop: 10/14/24 18:06 Last Infusion: 09/15/24 10:29 Dose: Infused Documented By: Admin: 09/15/24 09:08 Dose: 201 mls/hr Documented By: Infusion: 09/14/24 19:00 Dose: Infused Documented By: Admin: 09/14/24 18:30 Dose: 201 mls/hr Documented By: ANDREE Insulin Human Regular 250 (units/ Sodium Chloride) 250 mls @ 4.3 mls/hr IV .Q24H [facility]; Protocol Stop: 09/15/24 12:00 Last Titration: 09/15/24 10:17 Dose: 4.3 units/hr, 4.3 mls/hr Documented By: JI Co-signed By: AM Titration: 09/15/24 07:37 Dose: 3.6 units/hr, 3.6 mls/hr Documented By: JI Co-signed By: MR Titration: 09/15/24 06:05 Dose: 6 units/hr, 6 mls/hr Documented By: BRENDA Co-signed By: JT Titration: 09/15/24 05:05 Dose: 5 units/hr, 5 mls/hr Documented By: BRENDA Co-signed By: DLH Titration: 09/15/24 04:05 Dose: 5 units/hr, 5 mls/hr Documented By: BRENDA Co-signed By: JT Titration: 09/15/24 03:05 Dose: 5 units/hr, 5 mls/hr Documented By: MAR Co-signed By: BRENDA Titration: 09/15/24 02:05 Dose: 5 units/hr, 5 mls/hr Documented By: MAR Co-signed By: EBENEZER Titration: 09/15/24 01:00 Dose: 5 units/hr, 5 mls/hr Documented By: MAR Co-signed By: DUDLEY Titration: 09/15/24 00:05 Dose: 6.2 units/hr, 6.2 mls/hr Documented By: SADIES Co-signed By: TREE Titration: 09/14/24 23:06 Dose: 6.2 units/hr, 6.2 mls/hr Documented By: MALIK Co-signed By: MAR Titration: 09/14/24 22:08 Dose: 5.2 units/hr, 5.2 mls/hr Documented By: MALIK Co-signed By: COLLEEN Titration: 09/14/24 21:00 Dose: 4.3 units/hr, 4.3 mls/hr Documented By: MALIK Co-signed By: UGO Titration: 09/14/24 20:00 Dose: 3.6 units/hr, 3.6 mls/hr Documented By: MALIK Co-signed By: COLLEEN Admin: 09/14/24 18:57 Dose: 3 units/hr, 3 mls/hr Documented By: ANDREE Co-signed By: MALIK Pantoprazole Sodium (Pantoprazole 40 Mg Tab) 40 mg PO DAILY [facility] Stop: 10/15/24 08:59 Last Admin: 09/15/24 08:21 Dose: 40 mg Documented By: JI Tamsulosin HCl (Tamsulosin Hcl 0.4 Mg Cap) 0.4 mg PO DAILY [facility] Stop: 10/15/24 08:59 Last Admin: 09/15/24 08:21 Dose: 0.4 mg Documented By: JI Coding Level of Care Code 41580 IN/OBS CONSULT LVL 4,60M Diagnoses Suicidal ideation R45.851 Homicidal ideation R45.850 Depression with suicidal ideation F32.A; R45.851
[2024-09-15] MEDS: ONDANSETRON INJ 2 MG/ML 2 ML VIAL IV PRN (10:43)
[2024-09-15 10:57] LABS: Folate (Folic Acid),Ser orPlas 10.96 ng/ml (>5.38)
[2024-09-15] MEDS: INSULIN ASPART PER UNIT CHARGE SC SCH ×2 (12:44→23:15)
--- NOTE | 2024-09-15 13:57 | Hospitalist Progress Note ---
Date of Service September 15, 2024 Assessment & Plan (1) Suicidal ideation: (2) Hyperglycemia: Plan: 74-year-old male with history of major depressive disorder, panic disorder, sick sinus syndrome status post pacemaker, diabetes type 2 with polyneuropathy, hyper tension, CKD stage III presenting with suicidal ideation. 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 Chavez to consider IV Venofer infusion tomorrow on PPI, monitor h/h closely given hx of varices upper GI last done March grade 1 varices and portal HTN gastropathy recommend repeat was to be 08/2024 If hgb remains < 8 would consider GI eval while IP DVT prophylaxis d/c lovenox if favor of scds in setting of anemia Full code per patient PCP: CHEPE Perez Disposition not yet medically stable, plan for inpatient psych treatment Pt was seen and examined in collaboration with Dr. Chavez, please see addendum I spent a total of 56 minutes reviewing notes, outpatient records, labs, medication, coordinating, documenting and providing care for this patient excluding time spent in the performance of separately billed services. Admission and Anticipated Discharge Date Admission Date: September 14, 2024 Supervising Physician Co-Signing Physician Notes Attending addendum: The patient was seen and examined in emergency room He was admitted with suicidal ideation and noted to have very high blood sugar Complains to have some weakness and tiredness but did not have any suicidal ideation during examination in the emergency room Has been feeling better since admission On examination Lying in bed without any acute distress Hemodynamically stable Chestclear to auscultate bilaterally HeartS1-S2, regular Abdomenbenign Extremitiesnegative CNSalert, awake and oriented x 3. Generally weak His admission labs, EKG and imaging studies reviewed Suicidal ideationevaluated by psychiatrist and advised to have one-to-one sitter if needed and also the patient is allowed to sign out AMA Uncontrolled diabetes with very high blood sugarhas been on insulin drip and the patient is tolerating well Agree with assessment plan as outlined above by Marj Moss PA-C and take the full responsibility of care in the hospital Dr Chrissy Chavez Subjective Pt seen in A5 in the ED as a admission hold. He reports feeling nauseated. "I can't feel anything." He denies wanting to harm himself at this time. Per nursing he has been dry heaving. Pt denies abd pain, f/c/s chest pain, sob, hematuria, melena or hematochezia. Review of Systems Review of Systems: All systems reviewed & are unremarkable except as noted in HPI & below Physical Exam Physical Exam: Gen: WD/WN, M, lying in bed, NAD, A&O x3, very flat affect HEENT: Normocephalic, atraumatic, conjunctivae moist, sclerae anicteric, mucous membranes moist. Lung: Clear to Auscultation bilaterally, no wheezes/rales/rhonchi Heart: Regular rate, regular rhythm, no murmurs, rubs, or gallops Abdomen: Soft, NT, ND +BS x 4 Extremities: No edema Skin: Warm, no rash, negative turgor. Results & Data Results & Data Vital Signs (Past 12 Hours) Vital Signs Pulse Pulse Resp BP BP Pulse Ox O2 Del Method 09/15/24 13:00 78 16 127/66 100 Room Air 09/15/24 12:30 77 19 112/69 98 Room Air 09/15/24 08:48 79 20 120/70 09/15/24 07:24 80 13 09/15/24 07:09 101 H 18 120/70 09/15/24 07:01 130/61 09/15/24 06:57 83 09/15/24 06:42 85 18 99 Nasal Cannula 09/15/24 06:39 78 16 130/61 100 Nasal Cannula, Other 09/15/24 06:30 120/58 L 09/15/24 06:30 83 17 120/58 L 99 Room Air 09/15/24 06:00 79 17 123/59 L 100 Room Air 09/15/24 05:51 76 15 120/58 L 89 L Room Air 09/15/24 05:30 120/57 L 09/15/24 05:30 80 15 93 Nasal Cannula 09/15/24 05:10 87 20 122/80 96 Room Air 09/15/24 05:06 90 19 120/57 L 09/15/24 04:09 90 16 105/65 95 Nasal Cannula 09/15/24 04:03 85 22 94 Nasal Cannula 09/15/24 03:47 79 18 111/52 L 95 Nasal Cannula 09/15/24 03:20 101 H 21 130/66 09/15/24 03:11 86 19 110/50 L 09/15/24 02:26 16 95 Nasal Cannula 09/15/24 02:12 100/60 09/15/24 02:06 88 20 09/15/24 02:03 79 17 O2 Flow Rate 09/15/24 13:00 09/15/24 12:30 09/15/24 08:48 09/15/24 07:24 09/15/24 07:09 09/15/24 07:01 09/15/24 06:57 09/15/24 06:42 4 09/15/24 06:39 4 09/15/24 06:30 09/15/24 06:30 09/15/24 06:00 09/15/24 05:51 09/15/24 05:30 09/15/24 05:30 4 09/15/24 05:10 09/15/24 05:06 09/15/24 04:09 4 09/15/24 04:03 4 09/15/24 03:47 4 09/15/24 03:20 09/15/24 03:11 09/15/24 02:26 4 09/15/24 02:12 09/15/24 02:06 09/15/24 02:03 Laboratory Results Short CBC 09/14/24 09/15/24 Range/Units 14:10 03:47 WBC 4.97 5.93 (4.8-10.8) K/ul Hgb 8.3 L 7.7 L (14.0-18.0) g/dl Hct 26.3 L 25.0 L (42.0-52.0) % Plt Count 112 L 111 L (130-400) K/uL BMP 09/14/24 09/14/24 09/15/24 14:10 Unknown 03:47 Sodium 123 L 128 L 133 L Potassium 4.8 4.0 3.6 Chloride 89 L 93 L 98 Carbon Dioxide 27 28 29 BUN 24 H 23 22 Creatinine 1.31 1.34 1.20 Glucose 745 H* 589 H* 141 H Calcium 9.0 8.4 L 8.5 L Liver Function 09/14/24 09/15/24 Range/Units 14:10 03:47 Total Bilirubin 2.2 H 2.1 H (0.2-1.0) mg/dl AST 34 39 (13-39) U/L ALT 32 30 (7-52) U/L Alkaline Phosphatase 160 H 135 H (34-104) U/L Albumin 3.6 3.2 L (3.4-5.0) gm/dl Urine 09/14/24 Range/Units 13:45 Urine Color Yellow Urine Appearance Clear (Clear) Urine pH 5.5 (4.5-7.5) Ur Specific [place] 1.030 (1.000-1.030) Urine Protein Negative (Negative) Urine Glucose (UA) 3+ H (Negative) I have independently reviewed and interpreted patient's admitting labs including CBC, BMP Medications Administered Current Inpatient Medications Acetaminophen (Acetaminophen 325 Mg Tab) 650 mg PO Q4H PRN PRN Reason: Pain or Fever Stop: 10/14/24 17:27 Allopurinol (Allopurinol 100 Mg Tab) 100 mg PO QAM [facility]IN Stop: 10/15/24 08:59 Last Admin: 09/15/24 08:22 Dose: 100 mg Atorvastatin Calcium (Atorvastatin 40 Mg Tab) 80 mg PO HS DEVNI Stop: 10/14/24 20:59 Last Admin: 09/14/24 22:56 Dose: 80 mg Dextrose (Dextrose 50% 50 Ml Syringe) 25 - 50 ml IV UD PRN; Protocol PRN Reason: Hypoglycemia Protocol Stop: 10/14/24 17:27 Enoxaparin Sodium (Enoxaparin Inj 40 Mg/0.4 Ml Syr) 40 mg SQ Q24H [facility] Stop: 10/14/24 17:59 Last Admin: 09/14/24 20:16 Dose: Not Given Escitalopram Oxalate (Escitalopram Oxalate 10 Mg Tab) 15 mg PO DAILY [facility] Stop: 10/15/24 08:59 Last Admin: 09/15/24 08:21 Dose: 15 mg Ferrous Sulfate (Ferrous Sulfate 325 Mg Tab) 325 mg PO DAILY [facility] Stop: 10/15/24 08:59 Last Admin: 09/15/24 08:22 Dose: 325 mg Furosemide (Furosemide 40 Mg Tab) 40 mg PO QAM [facility] Stop: 10/15/24 08:59 Last Admin: 09/15/24 08:22 Dose: 40 mg Glucagon (Glucagon For Inj 1 Mg Vial) 1 mg SQ UD PRN; Protocol PRN Reason: Hypoglycemia Protocol Stop: 10/14/24 17:27 Glucose (Glucose 40% Gel 15 Gm Tube) 15 - 30 gm PO UD PRN; Protocol PRN Reason: Hypoglycemia Protocol Stop: 10/14/24 17:27 Glucose (Glucose 10 Tab/Tube) 4 - 8 tab PO UD PRN; Protocol PRN Reason: Hypoglycemia Protocol Stop: 10/14/24 17:27 Promethazine HCl (Phenergan) 6.25 mg in 50.25 mls @ 201 mls/hr IV Q6H PRN PRN Reason: Nausea And Vomiting Stop: 10/14/24 18:06 Last Infusion: 09/15/24 10:29 Dose: Infused Insulin Human Regular 250 (units/ Sodium Chloride) 250 mls @ 0 mls/hr IV .Q0M [facility]; Protocol Stop: 09/15/24 16:00 Last Titration: 09/15/24 12:08 Dose: 0 units/hr, 0 mls/hr Insulin Aspart (Insulin Aspart Per Unit Charge) 0 units SC ACHS [facility] Stop: 10/15/24 11:29 Last Admin: 09/15/24 12:44 Dose: 3 units Melatonin (Melatonin 3 Mg Tab) 6 mg PO HS PRN PRN Reason: Sleep Stop: 10/15/24 20:59 Miscellaneous (Carbohydrates For Hypoglycemia ) 15 - 30 gm PO UD PRN PRN Reason: Hypoglycemia Protocol Stop: 10/14/24 17:27 Miscellaneous Information (Pharmacy Glycemic Mgmt Consult) 1 each N/A UD PRN PRN Reason: Consult Stop: 10/14/24 17:27 Ondansetron HCl (Ondansetron Inj 2 Mg/Ml 2 Ml Vial) 4 mg IV Q4H PRN PRN Reason: Nausea Stop: 10/15/24 10:00 Last Admin: 09/15/24 10:43 Dose: 4 mg Pantoprazole Sodium (Pantoprazole 40 Mg Tab) 40 mg PO DAILY [facility] Stop: 10/15/24 08:59 Last Admin: 09/15/24 08:21 Dose: 40 mg Tamsulosin HCl (Tamsulosin Hcl 0.4 Mg Cap) 0.4 mg PO DAILY [facility] Stop: 10/15/24 08:59 Last Admin: 09/15/24 08:21 Dose: 0.4 mg
[2024-09-15] MEDS: LANTUS PER UNIT CHARGE SC SCH (20:43)
[2024-09-16] MEDS: MECLIZINE 12.5 MG TAB PO STA (00:17)
[2024-09-16] MEDS: LANTUS PER UNIT CHARGE SC SCH (09:33)
[2024-09-16 09:51] LABS: BUN Creatinine Ratio 13.7 (10-20); Calcium 8.1 mg/dl (8.6-10.3); Creatinine Clr Calc Pharmacy 51.5 ml/min; Magnesium 1.8 mg/dl (1.7-2.4); Phosphorus 3.1 mg/dl (2.5-4.9); Potassium 3.7 mmol/L (3.5-5.1)
--- NOTE | 2024-09-16 16:12 | Hospitalist Progress Note ---
Date of Service September 16, 2024 Assessment & Plan (1) Suicidal ideation: (2) Hyperglycemia: Plan: 74-year-old male with history of major depressive disorder, panic disorder, sick sinus syndrome status post pacemaker, diabetes type 2 with polyneuropathy, hypertension, CKD stage III presenting with suicidal ideation. Suicidal ideation History of major depressive disorder, panic disorder Usually on escitalopram, not taking recently due to feeling " overwhelmed " One-to-one observation Psych eval pt he may not leave AMA and would meet 302 criteria, pt currently voluntary or inpatient Denies any more suicidal ideation Looks depressed and has been conversing reasonably MiraLAX will be given for constipation Hyperglycemia Diabetes type 2 A1C 16.9 Usually on empagliflozin, glargine stable insulin aspart dose 80 Started with intravenous insulin infusion and there was discontinued following improvement of the blood sugar Now he has been getting regular subcu insulin and sliding scale He has been feeling better Sick sinus syndrome status post pacemaker No cardiac symptoms Dizziness with ambulation-likely has postural hypotension Will get orthostasis vitals CHF, grade 1 diastolic dysfunction daily weights, strict I and o continue lasix Last echo in March with preserved LVEF Mouth is very dry and told he has trace edema bilaterally will hold Lasix for now Advised to drink more fluid CKD stage III Stable BPH Patient reports urinary continence UA no signs of UTI Continue usual alfuzosin History of colon cancer Liver 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 Chavez to consider IV Venofer infusion tomorrow on PPI, monitor h/h closely given hx of varices upper GI last done March grade 1 varices and portal HTN gastropathy recommend repeat was to be 08/2024 If hgb remains < 8 would consider GI eval while IP Will give intravenous Venofer tomorrow with further improvement of general condition DVT prophylaxis d/c lovenox if favor of scds in setting of anemia Full code per patient PCP: CHEPE Perez Disposition not yet medically stable, plan for inpatient psych treatment Admission and Anticipated Discharge Date Admission Date: September 14, 2024 Subjective 09/16/2024 Patient was seen and examined in emergency room He has been feeling much better but complains to have profound weakness and also dizziness with ambulation He feels depressed but does not have any more suicidal ideation His blood sugar has been improving Review of Systems Review of Systems: All systems reviewed and are unremarkable except as noted below Physical Exam Physical Exam: On examination Lying in bed without any acute distress Hemodynamically stable Chestclear to auscultate bilaterally HeartS1-S2, regular Abdomenbenign Extremitiesnegative CNSalert, awake and oriented x 3. Generally weak Results & Data Results & Data Vital Signs (Past 12 Hours) Vital Signs Pulse Pulse Resp BP BP Pulse Ox O2 Del Method 09/16/24 15:25 84 09/16/24 14:30 85 18 112/45 L 96 Room Air 09/16/24 10:15 109/66 92 09/16/24 10:09 81 15 09/16/24 10:06 84 19 09/16/24 09:48 82 23 09/16/24 08:09 80 14 97 09/16/24 07:33 81 25 H 94 09/16/24 06:59 86 09/16/24 06:03 85 22 09/16/24 05:45 84 20 09/16/24 05:30 78 16 113/52 L 96 Room Air 09/16/24 04:30 74 16 110/54 L 96 Room Air Laboratory Results BMP 09/16/24 09:14 Sodium 134 L Potassium 3.7 Chloride 98 Carbon Dioxide 30 BUN 17 Creatinine 1.24 Glucose 269 H Calcium 8.1 L Medications Administered Current Inpatient Medications Acetaminophen (Acetaminophen 325 Mg Tab) 650 mg PO Q4H PRN PRN Reason: Pain or Fever Stop: 10/14/24 17:27 Allopurinol (Allopurinol 100 Mg Tab) 100 mg PO QAM DEVIN Stop: 10/15/24 08:59 Last Admin: 09/16/24 09:17 Dose: 100 mg Atorvastatin Calcium (Atorvastatin 40 Mg Tab) 80 mg PO HS DEVIN Stop: 10/14/24 20:59 Last Admin: 09/15/24 22:12 Dose: 80 mg Dextrose (Dextrose 50% 50 Ml Syringe) 25 - 50 ml IV UD PRN; Protocol PRN Reason: Hypoglycemia Protocol Stop: 10/14/24 17:27 Enoxaparin Sodium (Enoxaparin Inj 40 Mg/0.4 Ml Syr) 40 mg SQ Q24H DEVIN Stop: 10/14/24 17:59 Last Admin: 09/14/24 20:16 Dose: Not Given Escitalopram Oxalate (Escitalopram Oxalate 10 Mg Tab) 15 mg PO DAILY DEVIN Stop: 10/15/24 08:59 Last Admin: 09/16/24 09:17 Dose: 15 mg Ferrous Sulfate (Ferrous Sulfate 325 Mg Tab) 325 mg PO DAILY DEVIN Stop: 10/15/24 08:59 Last Admin: 09/16/24 09:17 Dose: 325 mg Furosemide (Furosemide 40 Mg Tab) 40 mg PO QAM DEVIN Stop: 10/15/24 08:59 Last Admin: 09/16/24 09:18 Dose: 40 mg Glucagon (Glucagon For Inj 1 Mg Vial) 1 mg SQ UD PRN; Protocol PRN Reason: Hypoglycemia Protocol Stop: 10/14/24 17:27 Glucose (Glucose 40% Gel 15 Gm Tube) 15 - 30 gm PO UD PRN; Protocol PRN Reason: Hypoglycemia Protocol Stop: 10/14/24 17:27 Glucose (Glucose 10 Tab/Tube) 4 - 8 tab PO UD PRN; Protocol PRN Reason: Hypoglycemia Protocol Stop: 10/14/24 17:27 Promethazine HCl (Phenergan) 6.25 mg in 50.25 mls @ 201 mls/hr IV Q6H PRN PRN Reason: Nausea And Vomiting Stop: 10/14/24 18:06 Last Infusion: 09/15/24 10:29 Dose: Infused Insulin Aspart (Insulin Aspart Per Unit Charge) 0 units SC ACHS COUNTS INCLUDE 234 BEDS AT THE [facility] Stop: 10/15/24 11:29 Last Admin: 09/16/24 13:27 Dose: 17 units Insulin Glargine (Lantus Per Unit Charge) 80 units SC DAILY COUNTS INCLUDE 234 BEDS AT THE [facility] Stop: 10/15/24 20:59 Last Admin: 09/16/24 09:33 Dose: 80 units Melatonin (Melatonin 3 Mg Tab) 6 mg PO HS PRN PRN Reason: Sleep Stop: 10/15/24 20:59 Miscellaneous (Carbohydrates For Hypoglycemia ) 15 - 30 gm PO UD PRN PRN Reason: Hypoglycemia Protocol Stop: 10/14/24 17:27 Miscellaneous Information (Pharmacy Glycemic Mgmt Consult) 1 each N/A UD PRN PRN Reason: Consult Stop: 10/14/24 17:27 Ondansetron HCl (Ondansetron Inj 2 Mg/Ml 2 Ml Vial) 4 mg IV Q4H PRN PRN Reason: Nausea Stop: 10/15/24 10:00 Last Admin: 09/15/24 23:19 Dose: 4 mg Pantoprazole Sodium (Pantoprazole 40 Mg Tab) 40 mg PO DAILY COUNTS INCLUDE 234 BEDS AT THE [facility] Stop: 10/15/24 08:59 Last Admin: 09/16/24 09:18 Dose: 40 mg Tamsulosin HCl (Tamsulosin Hcl 0.4 Mg Cap) 0.4 mg PO DAILY COUNTS INCLUDE 234 BEDS AT THE [facility] Stop: 10/15/24 08:59 Last Admin: 09/16/24 09:16 Dose: 0.4 mg
[2024-09-16] MEDS: POLYETHYLENE (MIRALAX) 17 GM PACK PO SCH (18:17)
[2024-09-16] MEDS: MAGNESIUM HYDROXIDE SUSP 30 ML UDC PO ONE (18:17)
[2024-09-16] MEDS: MELATONIN 3 MG TAB PO PRN (22:39)
[2024-09-17] MEDS: hydrOXYzine HCl 10 MG TAB PO STA (02:24)
[2024-09-17 08:58] LABS: Hematocrit (blood only) 24.1 % (42.0-52.0); Hemoglobin 7.4 g/dl (14.0-18.0); Mean Corpuscular Hemoglobin 23.2 pg (25.0-34.0); Mean Corpuscular Hgb Conc 30.7 g/dL (32.0-36.0); Mean Corpuscular Volume 75.5 fL (80.0-100.0); Mean Platelet Volume 9.8 fL (9.4-12.4); Platelet Count 112 K/uL (130-400); RDW Coefficient of Variation 14.7 % (11.5-14.5); RDW Standard Deviation 40.6 fL (36.4-46.3); Red Blood Count 3.19 M/uL (4.70-6.10); White Blood Count 4.46 K/ul (4.8-10.8)
[2024-09-17 09:17] LABS: Calcium 7.9 mg/dl (8.6-10.3); Creatinine Clr Calc Pharmacy 50.3 ml/min; Potassium 3.7 mmol/L (3.5-5.1)
[2024-09-17 09:20] LABS: Basophils # (auto) 0.03 K/uL (0.00-0.20); Basophils % (auto) 0.7 %; Eosinophils # (auto) 0.16 K/uL (0.00-0.50); Eosinophils % (auto) 3.6 %; Immature Granulocytes # (auto) 0.01 K/uL (0.01-0.20); Immature Granulocytes % (auto) 0.2 %; Lymphocytes # (auto) 0.76 K/uL (1.20-3.40); Monocytes # (auto) 0.34 K/uL (0.11-0.59); Monocytes % (auto) 7.6 %; Neutrophils # (auto) 3.16 K/uL (1.40-6.50); Neutrophils % (auto) 70.9 %; RBC Morphology Unremarkable
--- NOTE | 2024-09-17 09:26 | Hospitalist Progress Note ---
Date of Service September 17, 2024 Assessment & Plan (1) Suicidal ideation: (2) Hyperglycemia: Plan: 74-year-old male with history of major depressive disorder, panic disorder, sick sinus syndrome status post pacemaker, diabetes type 2 with polyneuropathy, hypertension, CKD stage III presenting with suicidal ideation. Suicidal ideation History of major depressive disorder, panic disorder Usually on escitalopram, not taking recently due to feeling " overwhelmed " One-to-one observation Psych eval pt he may not leave AMA and would meet 302 criteria, pt currently voluntary or inpatient Denies any more suicidal ideation Looks depressed and has been conversing reasonably Hyperglycemia Diabetes type 2 A1C 16.9 Usually on empagliflozin, glargine stable insulin aspart dose 80 Started with intravenous insulin infusion and there was discontinued following improvement of the blood sugar Compliant with insulin regimen, BSG improved at 162 this AM Sick sinus syndrome status post pacemaker No cardiac symptoms Dizziness with ambulation-likely has postural hypotension, anemia contributing CHF, grade 1 diastolic dysfunction daily weights, strict I and o continue lasix Last echo in March with preserved LVEF Lasix held 2/2 dry appearance CKD stage III Stable BPH Patient reports urinary continence UA no signs of UTI Continue usual alfuzosin History of colon cancer Liver 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 Follow-up as an outpatient Will check Hemoccult Iron Deficiency anemia Hgb 7.4 today Iron/Ferritin low, TIBC High On oral Iron, last iron panel done in March was normal On PPI, monitor h/h closely given hx of varices Upper GI last done March grade 1 varices and portal HTN gastropathy Recommend repeat was to be 08/2024 Consider blood transfusion for hgb <7 Will give intravenous Venofer tomorrow with further improvement of general condition Consider GI consult if hgb continues to downtrend DVT prophylaxis d/c lovenox if favor of scds in setting of anemia Full code per patient PCP: CHEPE Perez Disposition not yet medically stable, plan for inpatient psych treatment I spent a total of 40 minutes coordinating, documenting, and providing care for this patient excluding time spent in the performance of separately billed services. Admission and Anticipated Discharge Date Admission Date: September 14, 2024 Supervising Physician Co-Signing Physician Notes Attending addendum: The patient was seen and examined in emergency room He has been stable and looks depressed Denies any other significant symptoms No more suicidal On examination Lying in bed without any acute distress Hemodynamically stable Chestclear to auscultate bilaterally HeartS1-S2, regular Abdomenbenign Extremitiesnegative CNSalert, awake and oriented x 3. Generally weak He is labs and medications reviewed Suicidal ideation and noted to have uncontrolled diabetes and required intravenous insulin Improving and also continue with current management His hemoglobin remains low at 7.4 and iron level is low to will start IV Venofer 300 mg IV today and weekly in the milligram IV tomorrow Will check Hemoccult Agree with assessment and plan as outlined above by Radha Gonzales PA-C and take full responsibility of care in the hospital DR Chrissy Chavez Subjective Seen and examined in A5. Patient is pleasant, resting comfortably, feels down. No acute events overnight. Nursing states he has been compliant with all medications. Some lightheadedness with sitting upright. Denies any visual changes, palpitations, chest pain or shortness of breath. No nausea, vomiting, abdominal pain, dysuria, diarrhea or constipation. No SI. Review of Systems Review of Systems: At least ten systems reviewed and negative except as noted in the HPI. Physical Exam Physical Exam: Gen: WD/WN, NAD, resting in bed, A&Ox3, + depressed mood HEENT: Normocephalic, atraumatic, conjunctivae moist, sclerae anicteric, mucous membranes moist Lung: Clear to Auscultation bilaterally, no wheezes/rales/rhonchi Heart: Regular rate, regular rhythm Abdomen: Soft, NT, ND +BS x 4 Extremities: no edema Skin: Warm, no rash Results & Data Results & Data Vital Signs (Past 12 Hours) Vital Signs Pulse Pulse Resp BP BP Pulse Ox O2 Del Method 09/17/24 07:54 80 09/17/24 06:20 79 18 110/43 L 96 Room Air 09/17/24 05:07 84 09/17/24 02:00 86 13 97/52 L 96 Room Air 09/16/24 23:18 90 14 99/55 L 96 Room Air 09/16/24 23:09 88 18 98/55 L 96 Room Air 09/16/24 22:28 88 16 111/52 L 94 Room Air Laboratory Results Short CBC 09/17/24 Range/Units 08:16 WBC 4.46 L (4.8-10.8) K/ul Hgb 7.4 L (14.0-18.0) g/dl Hct 24.1 L (42.0-52.0) % Plt Count 112 L (130-400) K/uL [facility] 09/17/24 08:16 Sodium 135 L Potassium 3.7 Chloride 99 Carbon Dioxide 32 BUN 19 Creatinine 1.27 Glucose 162 H Calcium 7.9 L Diagnostic Findings Chest X-Ray 09/14/24 14:05 XR chest 1V portable CLINICAL HISTORY: illness COMPARISON STUDY: Chest radiograph May 21, 2023. FINDINGS: Left subclavian pacer is in place. Cardiomegaly is unchanged. There is mild interstitial thickening. Minimal left basilar opacity favors atelectasis. There is no pneumothorax or pleural effusion. There are surgical anchors within the left humeral head. IMPRESSION: Cardiomegaly. Interstitial thickening which may reflect mild pulmonary edema. An infectious process could appear similar although is considered less likely. ACT 112: Negative or not required by law. Electronically signed by: Joshua Sinclair M.D. 09/14/2024 2:[address] 09/14/24 14:21 CT OF THE HEAD WITHOUT CONTRAST CLINICAL HISTORY: Fall. COMPARISON STUDY: No previous studies for comparison. CT DOSE: 625.8 mGy.cm TECHNIQUE: Helical axial images of the head were obtained without IV contrast. Automated exposure control was utilized for the study. A dose lowering technique was utilized adhering to the principles of ALARA. FINDINGS: No acute intracranial hemorrhage, midline shift or mass effect is present. Mild ventricular dilatation is likely due to central atrophy. White matter hypodense foci suggest small vessel disease. The basal cisterns are patent. No extra-axial collections are present. There are no findings to suggest acute dural sinus thrombosis or acute territorial infarct. No significant calvarial abnormalities are present. Visualized portions of the sinuses and mastoid air cells are clear. IMPRESSION: 1. No acute intracranial findings. 2. No calvarial fractures. ACT 112: Negative or not required by law. Electronically signed by: Joshua Sinclair M.D. 09/14/2024 3:47 PM
--- NOTE | 2024-09-17 10:13 | Pharmacy Report ---
Pharmacy Glycemic Short Note 2 - Date of Service September 17, 2024 - Glycemic Short BSG Results (Last 24 hours): 09/16/24 09/16/24 09/16/24 13:00 17:58 20:23 Glucose POC Glucose 236 H 96 183 H 09/17/24 09/17/24 08:16 08:33 Glucose 162 H POC Glucose 171 H OUTPATIENT ANTIDIABETIC REGIMEN: * Lantus 44 units bid, empagliflozin 25 mg once daily, ozempic 0.25 mg SQ weekly * A1c > 16.9% ASSESSMENT: 09/17/24 * Patient received 141 units of insulin yesterday, 80 units basal, fasting BG at goal, continue. * BG up and down throughout yesterday, continue current NovoLog parameters at this time. * Plan for inpatient psych treatment. CDE Consult placed. 09/15 * 74 year old admitted for hyperglycemia last evening, started on insulin infusion. Labs stable, insulin drip initiated for hyperglycemia. Per provider notes, patient currently not taking home diabetic medications. Insulin infusion running this AM ~3.6 units/hr - Will give Lantus 60 units x 1 now to overlap with insulin infusion. Dosing is similar to another prior admission. Will d/c insulin infusion at noon and transition to SQ moving forward. May potentially add on Lantus scale for HS in case BSGs trend upwards. PLAN FOR INPATIENT GLYCEMIC CONTROL: * Hold outpatient diabetes medications * Basal insulin * Lantus 80 units SC daily * Bolus insulin * NovoLog per scale ACHS or Q6hrs while NPO * Goal Range: Low 110 mg/dL - High 140 mg/dL * Correction Factor: 12 mg/dL/unit * Nutritional / Prandial insulin per carb ratio of 1 unit per 4 grams CHO consumed
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
[2024-09-17] MEDS: IRON SUCROSE 300 MG in SODIUM CHLORIDE 0.9% 250 ML IV ONE (15:13)
[2024-09-18 04:03] LABS: Hematocrit (blood only) 24.9 % (42.0-52.0); Hemoglobin 7.5 g/dl (14.0-18.0); Mean Corpuscular Hemoglobin 23.1 pg (25.0-34.0); Mean Corpuscular Hgb Conc 30.1 g/dL (32.0-36.0); Mean Corpuscular Volume 76.9 fL (80.0-100.0); Mean Platelet Volume 10.2 fL (9.4-12.4); Platelet Count 107 K/uL (130-400); RDW Coefficient of Variation 14.7 % (11.5-14.5); RDW Standard Deviation 41.1 fL (36.4-46.3); Red Blood Count 3.24 M/uL (4.70-6.10); White Blood Count 5.26 K/ul (4.8-10.8)
[2024-09-18 04:20] LABS: BUN Creatinine Ratio 15.9 (10-20); Calcium 7.8 mg/dl (8.6-10.3); Creatinine Clr Calc Pharmacy 50.7 ml/min; Potassium 3.7 mmol/L (3.5-5.1)
--- NOTE | 2024-09-18 08:32 | Pharmacy Report ---
Pharmacy Glycemic Short Note 2 - Date of Service September 18, 2024 - Glycemic Short BSG Results (Last 24 hours): 09/17/24 09/17/24 09/17/24 08:16 08:33 13:08 Glucose 162 H POC Glucose 171 H 148 H 09/17/24 09/17/24 09/18/24 18:12 21:38 01:36 Glucose POC Glucose 117 H 205 H 162 H 09/18/24 09/18/24 03:28 07:37 Glucose 182 H POC Glucose 114 H OUTPATIENT ANTIDIABETIC REGIMEN: * Lantus 44 units bid, empagliflozin 25 mg once daily, ozempic 0.25 mg SQ weekly * A1c > 16.9% ASSESSMENT: 09/18/24 * Stressors stable * Am fasting BSG now in goal range, but with notable trend down. Will reduce Lantus slightly to help prevent further decline and also scale for tomorrow * Trend x2 days with lowest BSG at dinner - possibly from high lunch BSG with overcorrection. Will therefore have tighter scale with breakfast but looser with lunch, dinner and HS 09/17/24 * Patient received 141 units of insulin yesterday, 80 units basal, fasting BG at goal, continue. * BG up and down throughout yesterday, continue current NovoLog parameters at this time. * Plan for inpatient psych treatment. CDE Consult placed. 09/15 * 74 year old admitted for hyperglycemia last evening, started on insulin infusion. Labs stable, insulin drip initiated for hyperglycemia. Per provider notes, patient currently not taking home diabetic medications. Insulin infusion running this AM ~3.6 units/hr - Will give Lantus 60 units x 1 now to overlap with insulin infusion. Dosing is similar to another prior admission. Will d/c insulin infusion at noon and transition to SQ moving forward. May potentially add on Lantus scale for HS in case BSGs trend upwards. PLAN FOR INPATIENT GLYCEMIC CONTROL: * Hold outpatient diabetes medications * Basal insulin * Lantus 40-80 units SC daily * Bolus insulin * NovoLog per scale ACHS or Q6hrs while NPO * Goal Range: Low 110 mg/dL - High 140 mg/dL * Correction Factor: 12 mg/dL/unit with breakfast, 15 mg/dL/unit with lunch, dinner, HS * CHO ratio: 4 g CHO/unit with breakfast, 5 g CHO/unit with lunch, dinner, HS
[2024-09-18] MEDS: INSULIN ASPART PER UNIT CHARGE SC SCH ×2 (09:26→13:40)
[2024-09-18] MEDS: LANTUS PER UNIT CHARGE SC SCH (09:26)
[2024-09-18] MEDS: IRON SUCROSE 300 MG in SODIUM CHLORIDE 0.9% 250 ML IV ONE (09:56)
--- NOTE | 2024-09-18 14:56 | Hospitalist Progress Note ---
Date of Service September 18, 2024 Assessment & Plan (1) Suicidal ideation: (2) Hyperglycemia: Plan: This is a 74-year-old male with history of major depressive disorder, panic disorder, sick sinus syndrome status post pacemaker, diabetes type 2 with polyneuropathy, hypertension, CKD stage III presenting with suicidal ideation. Suicidal ideation History of major depressive disorder, panic disorder Usually on escitalopram, not taking recently due to feeling " overwhelmed " - has been resumed during admission No longer requiring 1:1 per psych. However patient still may not leave AMA and would meet 302 criteria; contact psych liaison if attempts to leave Denies any more suicidal ideation Looks depressed and has been conversing reasonably Psych to re-evaluate need for inpatient psychiatry once medically stable Once hyperglycemia has stabilized consider geriatric psychiatry vs [place] inpatient psychiatry referral Hyperglycemia Uncontrolled diabetes type 2 A1C 16.9 Usually on empagliflozin, glargine stable insulin aspart dose 80 Started with intravenous insulin infusion and there was discontinued following improvement of the blood sugar Compliant with insulin regimen, BSG improved at 162 this AM Appreciate glycemic pharmacy support Generalized weakness Ambulates with cane at baseline, unsteady Feel depressed mood and poor PO intake/ nutrition contributing Check ionized Ca, resumed Vit D supplement per OP list PT/OT evals ordered Sick sinus syndrome status post pacemaker No cardiac symptoms CHF, grade 1 diastolic dysfunction Strict I&Os Last echo in March with preserved LVEF Appears euvolemic today - still with poor PO intake. 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 Follow-up as an outpatient Will check Hemoccult with hgb below baseline Iron Deficiency anemia Hgb 7.5 today Iron/Ferritin low, TIBC High On oral Iron, last iron panel done in March was normal On PPI, monitor h/h closely given hx of varices Upper GI last done March grade 1 varices and portal HTN gastropathy Recommend repeat was to be 08/2024 Consider blood transfusion for hgb <7 Given Venofer yesterday and today Consider GI consult if hgb continues to downtrend DVT prophylaxis D/c lovenox if favor of scds in setting of anemia Full code per patient PCP: CHEPE Perez Disposition not yet medically stable, plan for inpatient psych treatment I spent a total of 40 minutes coordinating, documenting, and providing care for this patient excluding time spent in the performance of separately billed services. Admission and Anticipated Discharge Date Admission Date: September 14, 2024 Supervising Physician Co-Signing Physician Notes Attending addendum: The patient was seen and examined in emergency room He has been eating normally and denies any significant symptoms Remains pleasantly confused though On examination Sitting on edge of bed and eating without any apparent distress Remains hemodynamically stable Other system examination unremarkable His labs, medications and imaging studies reviewed Psychiatric note review He seems to be no more suicidal and one-to-one will be taken off Agree with assessment plan as outlined above by Radha Gonzales PA-C and take the full responsibility of care in the hospital Dr Chrissy Chavez Subjective Seen and examined in C4 (admitted). Patient is pleasant, resting comfortably, still feels down but no acute complaints. No acute events overnight. Nursing states he has been compliant with all medications. Lightheadedness with sitting has improved since IV Venofer. Denies any visual changes, palpitations, chest pain or shortness of breath. No nausea, vomiting, abdominal pain, dysuria, diarrhea or constipation. No SI. Review of Systems Review of Systems: At least ten systems reviewed and negative except as noted in the HPI. Physical Exam Physical Exam: Gen: WD/WN, NAD, resting in bed, A&Ox3, + depressed mood, appears weak HEENT: Normocephalic, atraumatic, conjunctivae moist, sclerae anicteric, mucous membranes moist Lung: Clear to Auscultation bilaterally, no wheezes/rales/rhonchi Heart: Regular rate, regular rhythm Abdomen: Soft, NT, ND +BS x 4 Extremities: no edema Skin: Warm, no rash Results & Data Results & Data Vital Signs (Past 12 Hours) Vital Signs Temp Pulse Pulse Resp BP BP Pulse Ox 09/18/24 13:09 86 18 112/66 95 09/18/24 12:39 88 18 09/18/24 08:33 36.8 C 82 16 113/58 L 97 09/18/24 07:38 73 09/18/24 04:20 88 18 119/59 L 97 O2 Del Method 09/18/24 13:09 Room Air 09/18/24 12:39 09/18/24 08:33 Room Air 09/18/24 07:38 09/18/24 04:20 Room Air Laboratory Results Short CBC 09/18/24 Range/Units 03:28 WBC 5.26 (4.8-10.8) K/ul Hgb 7.5 L (14.0-18.0) g/dl Hct 24.9 L (42.0-52.0) % Plt Count 107 L (130-400) K/uL [facility] 09/18/24 03:28 Sodium 135 L Potassium 3.7 Chloride 99 Carbon Dioxide 30 BUN 20 Creatinine 1.26 Glucose 182 H Calcium 7.8 L Diagnostic Findings Chest X-Ray 09/14/24 14:05 XR chest 1V portable CLINICAL HISTORY: illness COMPARISON STUDY: Chest radiograph May 21, 2023. FINDINGS: Left subclavian pacer is in place. Cardiomegaly is unchanged. There is mild interstitial thickening. Minimal left basilar opacity favors atelectasis. There is no pneumothorax or pleural effusion. There are surgical anchors within the left humeral head. IMPRESSION: Cardiomegaly. Interstitial thickening which may reflect mild pulmonary edema. An infectious process could appear similar although is considered less likely. ACT 112: Negative or not required by law. Electronically signed by: Joshua Sinclair M.D. 09/14/2024 2:[address] 09/14/24 14:21 CT OF THE HEAD WITHOUT CONTRAST CLINICAL HISTORY: Fall. COMPARISON STUDY: No previous studies for comparison. CT DOSE: 625.8 mGy.cm TECHNIQUE: Helical axial images of the head were obtained without IV contrast. Automated exposure control was utilized for the study. A dose lowering technique was utilized adhering to the principles of ALARA. FINDINGS: No acute intracranial hemorrhage, midline shift or mass effect is present. Mild ventricular dilatation is likely due to central atrophy. White matter hypodense foci suggest small vessel disease. The basal cisterns are patent. No extra-axial collections are present. There are no findings to suggest acute dural sinus thrombosis or acute territorial infarct. No significant calvarial abnormalities are present. Visualized portions of the sinuses and mastoid air cells are clear. IMPRESSION: 1. No acute intracranial findings. 2. No calvarial fractures. ACT 112: Negative or not required by law. Electronically signed by: Joshua Sinclair M.D. 09/14/2024 3:47 PM
[2024-09-19 06:08] LABS: Hematocrit (blood only) 25.5 % (42.0-52.0); Hemoglobin 7.8 g/dl (14.0-18.0); Mean Corpuscular Hgb Conc 30.6 g/dL (32.0-36.0); Mean Corpuscular Volume 75.2 fL (80.0-100.0); Mean Platelet Volume 9.7 fL (9.4-12.4); Platelet Count 126 K/uL (130-400); RDW Coefficient of Variation 15.2 % (11.5-14.5); RDW Standard Deviation 40.9 fL (36.4-46.3); Red Blood Count 3.39 M/uL (4.70-6.10); White Blood Count 6.63 K/ul (4.8-10.8)
[2024-09-19 06:20] LABS: BUN Creatinine Ratio 15.3 (10-20); Calcium 8.4 mg/dl (8.6-10.3); Creatinine Clr Calc Pharmacy 54.1 ml/min; Potassium 3.9 mmol/L (3.5-5.1)
--- NOTE | 2024-09-19 08:28 | Hospitalist Progress Note ---
Date of Service September 19, 2024 Assessment & Plan (1) Suicidal ideation: (2) Hyperglycemia: Plan: This is a 74-year-old male with history of major depressive disorder, panic disorder, sick sinus syndrome status post pacemaker, diabetes type 2 with polyneuropathy, hypertension, CKD stage III presenting with suicidal ideation. Suicidal ideation History of major depressive disorder, panic disorder Usually on escitalopram, not taking recently due to feeling " overwhelmed " - has been resumed during admission and tolerating well No longer requiring 1:1 per psych. 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 Iron Deficiency anemia Hgb 7.8 today Iron/Ferritin low, TIBC High On oral Iron, last iron panel done in March (normal) On PPI, monitor h/h closely given hx of varices Upper GI last done 04/07; grade 1 varices and portal HTN gastropathy Recommend repeat was to be 08/2024 Consider blood transfusion for hgb <7 Given Venofer yesterday and today; takes daily Ferrous Sulfate; will increase to BID starting tonight given that he has received loading Iron Consider GI consult if hgb continues to downtrend Hyperglycemia Uncontrolled diabetes type 2 A1C 16.9 Usually on empagliflozin, glargine stable insulin aspart dose 80 Started with insulin drip; has since been discontinued. Current glucose 71 glycemic pharmacy on board Sick sinus syndrome status post pacemaker No cardiac symptoms CHF, grade 1 diastolic dysfunction Strict I&Os Last echo in March with preserved LVEF Appears euvolemic today - still with poor PO intake. Holding lasix CKD stage III Stable BPH UA no signs of UTI Continue usual alfuzosin DVT prophylaxis D/c lovenox if favor of scds in setting of anemia Full code per patient PCP: CHEPE Perez Disposition not yet medically stable, plan for inpatient psych treatment; I spent a total of 48 case management assisting minutes coordinating, documenting, and providing care for this patient excluding time spent in the performance of separately billed services. Admission and Anticipated Discharge Date Admission Date: September 14, 2024 Supervising Physician Co-Signing Physician Notes 09/19/2024 The patient was seen and examined in medical floor He has been feeling much better and denies any significant symptoms No more suicidal ideation and his depression seems to be improved He has been eating and drinking well On examination Sitting on the bed without any acute distress Remains hemodynamically stable Other system examination is unremarkable His labs, medications reviewed Presented with suicidal ideation and depression and noted to have very high blood sugar Condition seems to be improved a lot Agree with assessment and plan as outlined above by Negin MO and take the full responsibility of care in the hospital DR Chrissy mina Subjective Seen and examined in 351-2. Patient is pleasant, resting comfortably, still feels down but no acute complaints. No acute events overnight. Nursing states he has been compliant with all medications. just finished working with OT; was able to ambulate with his cane around the room; reportedly became unsteady x 1 but quickly regained his footing independently. Denies any visual changes, palpitations, chest pain or shortness of breath. No nausea, vomiting, abdominal pain, dysuria, diarrhea or constipation. No SI. One-on-one has been removed. Continue safe tray. During my examination and conversation he was appropriate. Review of Systems Review of Systems: Neuro: (-) Falls, trauma, slurred speech HEENT: (-) BEAVERS, dizziness, dysphagia, visual or auditory changes CV: (-) CP, palpitations, swelling Resp: (-) SOB GI: (-) appetite changes, N/V/D, bowel changes : (-) urinary changes Skin: (-) rashes Psych: (-) anxiety, (+) Depression, no current suicidal ideation Physical Exam Physical Exam: Neuro: AAOx4, PERRLA, no aphagia, memory changes, CNII-XII grossly intact HEENT: head normocephalic, moist mucus membranes CV: S1/S2, (-) M/G/R, (-) edema, cap refill < 3 seconds Resp: Lungs CTA in all melo. On RA GI: Abdomen S/NT/ND, Ax4 bowel sounds, (-) CVA tenderness Musculoskeletal: 5/5 B/L UE strength, 5/5 B/L LE strength. uses cane for ambulation/ working with PT OT Skin: (-) rashes , (-) erythema. Psych: euthymic mood, interacting positively Results & Data Results & Data Vital Signs (Past 12 Hours) Vital Signs O2 Del Method 09/19/24 07:54 Room Air Laboratory Results Short CBC 09/19/24 Range/Units 05:49 WBC 6.63 (4.8-10.8) K/ul Hgb 7.8 L (14.0-18.0) g/dl Hct 25.5 L (42.0-52.0) % Plt Count 126 L (130-400) K/uL BMP 09/19/24 05:49 Sodium 139 Potassium 3.9 Chloride 103 Carbon Dioxide 31 BUN 18 Creatinine 1.18 Glucose 71 Calcium 8.4 L
[2024-09-19] MEDS: CHOLECALCIFEROL 25 MCG (1000 UNITS) TAB PO SCH (08:35)
[2024-09-19] MEDS: FERROUS SULFATE 325 MG TAB PO SCH (21:03)
--- NOTE | 2024-09-20 07:47 | Hospitalist Progress Note ---
Date of Service September 20, 2024 Assessment & Plan (1) Suicidal ideation: (2) Hyperglycemia: Plan: This is a 74-year-old male with history of major depressive disorder, panic disorder, sick sinus syndrome status post pacemaker, diabetes type 2 with polyneuropathy, hypertension, CKD stage III presenting with suicidal ideation. Suicidal ideation History of major depressive disorder, panic disorder Usually on escitalopram, not taking recently due to feeling " overwhelmed " - has been resumed during admission and tolerating well No longer requiring 1:1 per psych. However patient still may not leave AMA and would meet 302 criteria; contact psych liaison if attempts to leave Denies any more SI. Discussed with Psych this AM who will see this afternoon; would like their input regarding if they still feel that he requires inpatient psych services. Looks depressed and has been conversing reasonably and appropriately Psych to re-evaluate need for inpatient psychiatry; likely not based on my assessment; Has been working with OT; who recommended returning home with additional support with IADL's. 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 Iron Deficiency anemia Hgb 7.8 today Iron/Ferritin low, TIBC High On oral Iron, last iron panel done in March (normal) On PPI, monitor h/h closely given hx of varices Upper GI last done 04/07; grade 1 varices and portal HTN gastropathy Recommend repeat was to be 08/2024 Consider blood transfusion for hgb <7 Given Venofer yesterday and today; takes daily Ferrous Sulfate; will increase to BID starting tonight given that he has received loading Iron Consider GI consult if hgb continues to downtrend Hyperglycemia Uncontrolled diabetes type 2 A1C 16.9 Usually on empagliflozin, glargine stable insulin aspart dose 80 Started with insulin drip; has since been discontinued. Current glucose 71 glycemic pharmacy on board Sick sinus syndrome status post pacemaker No cardiac symptoms CHF, grade 1 diastolic dysfunction Strict I&Os Last echo in March with preserved LVEF Appears euvolemic today - still with poor PO intake. Holding lasix CKD stage III Stable BPH UA no signs of UTI Continue usual alfuzosin DVT prophylaxis D/c lovenox if favor of scds in setting of anemia Full code per patient PCP: CHEPE Perez Disposition home vs psych based on psych review later afternoon 09/20. I spent a total of 48 case management assisting minutes coordinating, documenting, and providing care for this patient excluding time spent in the performance of separately billed services. Admission and Anticipated Discharge Date Admission Date: September 14, 2024 Supervising Physician Co-Signing Physician Notes 09/20/2024 Patient was seen and examined in medical floor He has been stable and denies any significant symptoms and wants to go home On examination Lying in bed without any acute distress Remains hemodynamically stable Systemic examinations are His labs and medications were reviewed Remains medically stable with depression/anxiety associated with uncontrolled diabetes initially required intravenous insulin Agree with assessment plan as outlined above by Negin MO take the full responsibility to care in the hospital DR Chrissy Chavez Subjective Seen and examined in [facility]. Patient is pleasant, resting comfortably, still feels down but no acute complaints. No acute events overnight. Nursing states he has been compliant with all medications. worked with OT on 09/19 who recommended he could be discharged home with additional home services support Denies any visual changes, palpitations, chest pain or shortness of breath. No nausea, vomiting, abdominal pain, dysuria, diarrhea or constipation. No SI. One-on-one has been removed. During my examination and conversation he was appropriate and coherent Review of Systems Review of Systems: Neuro: (-) Falls, trauma, slurred speech HEENT: (-) BEAVERS, dizziness, dysphagia, visual or auditory changes CV: (-) CP, palpitations, swelling Resp: (-) SOB GI: (-) appetite changes, N/V/D, bowel changes : (-) urinary changes Skin: (-) rashes Psych: (-) anxiety, (+) Depression, no current suicidal ideation Physical Exam Physical Exam: Neuro: AAOx4, PERRLA, no aphagia, memory changes, CNII-XII grossly intact HEENT: head normocephalic, moist mucus membranes CV: S1/S2, (-) M/G/R, (-) edema, cap refill < 3 seconds Resp: Lungs CTA in all melo. On RA GI: Abdomen S/NT/ND, Ax4 bowel sounds, (-) CVA tenderness Musculoskeletal: 5/5 B/L UE strength, 5/5 B/L LE strength. uses cane for ambulation/ working with PT OT Skin: (-) rashes , (-) erythema. Psych: euthymic mood, interacting positively Results & Data Results & Data Vital Signs (Past 12 Hours) Vital Signs O2 Del Method 09/19/24 22:49 Room Air Laboratory Results Short CBC 09/20/24 Range/Units 07:54 WBC 5.65 (4.8-10.8) K/ul Hgb 7.5 L (14.0-18.0) g/dl Hct 25.0 L (42.0-52.0) % Plt Count 138 (130-400) K/uL BMP 09/20/24 07:54 Sodium 137 Potassium 4.3 Chloride 102 Carbon Dioxide 30 BUN 22 Creatinine 1.20 Glucose 142 H Calcium 8.4 L
[2024-09-20 08:10] LABS: Hemoglobin 7.5 g/dl (14.0-18.0); Mean Corpuscular Hemoglobin 23.3 pg (25.0-34.0); Mean Corpuscular Volume 77.6 fL (80.0-100.0); Platelet Count 138 K/uL (130-400); RDW Coefficient of Variation 15.4 % (11.5-14.5); RDW Standard Deviation 42.5 fL (36.4-46.3); Red Blood Count 3.22 M/uL (4.70-6.10); White Blood Count 5.65 K/ul (4.8-10.8)
[2024-09-20 08:24] LABS: BUN Creatinine Ratio 18.3 (10-20); Calcium 8.4 mg/dl (8.6-10.3); Creatinine Clr Calc Pharmacy 53.2 ml/min; Potassium 4.3 mmol/L (3.5-5.1)
[2024-09-20] MEDS: LANTUS PER UNIT CHARGE SC SCH (08:56)
--- NOTE | 2024-09-20 14:02 | Pharmacy Report ---
Pharmacy Glycemic Short Note 2 - Date of Service September 20, 2024 - Glycemic Short BSG Results (Last 24 hours): 09/19/24 09/19/24 09/20/24 16:43 20:38 07:49 Glucose POC Glucose 178 H 158 H 156 H 09/20/24 09/20/24 07:54 11:38 Glucose 142 H POC Glucose 207 H OUTPATIENT ANTIDIABETIC REGIMEN: * Lantus 44 units bid, empagliflozin 25 mg once daily, ozempic 0.25 mg SQ weekly * A1c > 16.9% ASSESSMENT: 09/20: * Simone received 96 units of insulin yesterday, 40 basal + 56 bolus. BSGs were: [phone] mg/dL. * Fasting BSG increased to 156 mg/dL this AM. Believe fasting below goal yesterday may have been related to patient receiving 80 units of basal for a few days prior. Do not believe 40 units of basal is sufficient for this patient. Will schedule 60 units of basal daily to see how patient responds. * Patient has had tighter Novolog parameters with breakfast only for a few days now. Lunchtime BSGs remain well above goal. Will tighten just carb ratio with breakfast only today. 09/18/24 * Stressors stable * Am fasting BSG now in goal range, but with notable trend down. Will reduce Lantus slightly to help prevent further decline and also scale for tomorrow * Trend x2 days with lowest BSG at dinner - possibly from high lunch BSG with overcorrection. Will therefore have tighter scale with breakfast but looser with lunch, dinner and HS 09/17/24 * Patient received 141 units of insulin yesterday, 80 units basal, fasting BG at goal, continue. * BG up and down throughout yesterday, continue current NovoLog parameters at this time. * Plan for inpatient psych treatment. CDE Consult placed. 09/15 * 74 year old admitted for hyperglycemia last evening, started on insulin infusion. Labs stable, insulin drip initiated for hyperglycemia. Per provider notes, patient currently not taking home diabetic medications. Insulin infusion running this AM ~3.6 units/hr - Will give Lantus 60 units x 1 now to overlap with insulin infusion. Dosing is similar to another prior admission. Will d/c insulin infusion at noon and transition to SQ moving forward. May potentially add on Lantus scale for HS in case BSGs trend upwards. PLAN FOR INPATIENT GLYCEMIC CONTROL: * Hold outpatient diabetes medications * Basal insulin * Lantus 60 units SC daily * Bolus insulin * NovoLog per scale ACHS or Q6hrs while NPO * Goal Range: Low 110 mg/dL - High 140 mg/dL * Correction Factor: 12 mg/dL/unit with breakfast, 15 mg/dL/unit with lunch, dinner, HS * CHO ratio: 3 g CHO/unit with breakfast, 5 g CHO/unit with lunch, dinner, HS
--- NOTE | 2024-09-20 15:13 | Psychiatric Progress Note ---
Date of Service September 20, 2024 Impression / Recommendations Impression Diagnostically consistent with unspecified depressive disorder-suspect possible MDD vs 2/2 cognitive changes with disinhibition and personality changes/prefrontal cortex changes. Seems symptoms have worsened with confusion related to his medications including how to organize and take his SSRI escitalopram (15mg daily) and increased physical limitations due to difficulty ambulating. A: His mood has significantly improved and he continues to consistently deny SI and HI as his blood sugar has stabilized. Suspect his mood symptoms were due to a combination of non-adherence with his psychiatric medication, feeling overwhelmed by his caregiving needs, and delirium from hyperglycemia. Acute risk of self-harm is now low given denial of SI, future-oriented, able to speak to supports, able to safety plan/speak to crisis resources. Chronic risk is moderate given hx of depression/anxiety, caregiving burden for his , chronic medical conditions, age, male but also with protective factors including good social support, sense of responsibility to family and social supports, outpatient care in place, positive problem solving, capacity to establish therapeutic alliance, capacity for self-observation. Counseled on ways to reduce acute and chronic risk including engaging with outpatient providers, utilizing supports, taking medication, and using crisis resources/[facility] if needed. Modifiable risk factors of SI, HI and depression have resolved with reinitiation of escitalopram and improvement of his medical conditions. safety planning completed including son securing guns. Acute risk of harm to others is low given denial of HI, no violent or aggressive behaviors during hospitalization. Chronic risk is low to moderate given family collateral of no history of violence, though possible history of aggression toward . Attempting to modify risk by encouraging increased home health services and support within the home, counseled on caregiver burden and ways to seek support and relief if needed. Psych liason confirmed that duty to warn was done by police to regarding his previous statements of HI. He doesn't meet 302 criteria given denial of any mood symptoms, denial of SI, denial of HI, no evidence for violence/aggression, and able to meet his basic needs. Given high suspicion that his hyperglycemia lead to worsening of mood and emergence of SI and HI encourage ongoing efforts to increase home supports for medication management or use of bubble packs, frequent family check-ins, no driving, home meal delivery, and ongoing diabetes education. Overall, I spent a total of 60 minutes with this case including review of chart records, review of labwork, direct evaluation of the patient at bedside, counseling the patient, discussion of the patient with the Nurse and with the hospitalist provider, discussion with the psychiatric liason during clinical rounds, review of collateral historian information from the family and documentation in the electronic health record. (1) Depression due to physical illness: (2) Hyperglycemia: Plan -He doesn't meet 302 criteria and can leave AMA if he chooses to do so -Continue escitalopram -Recommend his license be removed/keys to car taken by son to prevent driving -He needs significant help regarding his diabetes education -Requires help with organizing his medications, ideally bubble pack scripts -Encourage home health and additional home-based services -Ongoing outpatient support via [place] -Reviewed safety planning/crisis resources and he understands and agrees to return to the hospital or call 911 if he were to worsen, not improve, have thoughts of SI or HI, or feel unsafe in the future Interval History Identifying Information 74 yo man with a history of major depressive disorder, panic disorder, sick sinus syndrome status post pacemaker, diabetes type 2 with polyneuropathy, hypertension, CKD stage III who was admitted for suicidal ideation and hyperglycemia. Psychiatry consulted for risk assessment/recommendations. Chief Complaint "Good". Subjective Subjective Patient was seen & assessed and interval progress reviewed. Today he continues to deny SI and reports ongoing mood improvement and that he feels "good". He attributes the resolution of his depression to "well I got my sugar under control". His family visited today including his , son and granddaughter which he enjoyed. He misses being able to watch "cowboy" shows on TV. He's hopeful he can return home soon, declines option for inpatient psychiatry hospitalization. Discussed concerns about him driving, especially until he has confidence managing his blood sugar in the outpatient setting and he is agreeable with not driving. He typically only drives to the grocery store so feels he won't need to drive as long as his son can bulk picker groceries. He continues to worry about his ability to manage his medications noting [facility] but they were unable to do this. He thinks if his son or someone can help him set up his pill container "I just need help getting it started" that then he can take his daily medications. He doesn't know how to manage his blood sugar stating "what are you supposed to do when your sugar's high?". He agrees to alert his [facility] providers if he were to re-develop SI or depression though he doesn't think this will happen. States he talks to people [facility] and this can be helpful. he continues to deny HI. He agrees that if he were to get frustrated or overwhelmed by his 's care he will "tell the [facility]". He knows he can ask for help if he becomes overwhelmed by caring for his . Physical Exam Psychiatric Orientation: alert, oriented x 3 and cooperative Apperance: appropriately groomed Eye Contact: good eye contact Motor Behavior: no abnormal motor movements Speech: normal rate/rhythm/volume of speech Affect: euthymic affect Mood: no depressed mood and no anxious mood Thought Process: goal directed thought process Thought Content: reality based without delusions Suicidal Thoughts: denies suicidal thoughts Homicidal Thoughts: denies homicidal thoughts Hallucinations: no auditory hallucinations and no visual hallucinations Insight: + limited insight Judgment: + limited judgement Vital Signs (Past 24 Hours) Last Vital Signs Temp 36.7 C 09/20/24 08:11 Pulse 69 09/20/24 08:11 Resp 17 09/20/24 08:11 BP 125/63 09/20/24 08:11 Pulse Ox 95 09/20/24 08:11 O2 Del Method Room Air 09/20/24 08:11 O2 Flow Rate 2 09/16/24 00:00 Results & Data ([facility]) Laboratory Results Laboratory Results - last 24 hr 09/19/24 09/19/24 09/20/24 16:43 20:38 07:49 WBC RBC Hgb Hct MCV MCH MCHC RDW Std Deviation RDW Coeff of Rea Plt Count MPV Sodium Potassium Chloride Carbon Dioxide Anion Gap BUN Creatinine Est Cr Clr Drug Dosing eGFR BUN/Creatinine Ratio Glucose POC Glucose 178 H 158 H 156 H Calcium 09/20/24 09/20/24 07:54 11:38 WBC 5.65 RBC 3.22 L Hgb 7.5 L Hct 25.0 L MCV 77.6 L MCH 23.3 L MCHC 30.0 L RDW Std Deviation 42.5 RDW Coeff of Rea 15.4 H Plt Count 138 MPV 10.0 Sodium 137 Potassium 4.3 Chloride 102 Carbon Dioxide 30 Anion Gap 5 BUN 22 Creatinine 1.20 Est Cr Clr Drug Dosing 53.2 eGFR 63.07 BUN/Creatinine Ratio 18.3 Glucose 142 H POC Glucose 207 H Calcium 8.4 L Current Inpatient Medications Current Inpatient Medications: Current Inpatient Medications Acetaminophen (Acetaminophen 325 Mg Tab) 650 mg PO Q4H PRN PRN Reason: Pain or Fever Stop: 10/14/24 17:27 Allopurinol (Allopurinol 100 Mg Tab) 100 mg PO QAM DEVIN Stop: 10/15/24 08:59 Last Admin: 09/20/24 08:57 Dose: 100 mg Atorvastatin Calcium (Atorvastatin 40 Mg Tab) 80 mg PO HS [facility] Stop: 10/14/24 20:59 Last Admin: 09/19/24 21:02 Dose: 80 mg Dextrose (Dextrose 50% 50 Ml Syringe) 25 - 50 ml IV UD PRN; Protocol PRN Reason: Hypoglycemia Protocol Stop: 10/14/24 17:27 Enoxaparin Sodium (Enoxaparin Inj 40 Mg/0.4 Ml Syr) 40 mg SQ Q24H DEVIN Stop: 10/14/24 17:59 Last Admin: 09/14/24 20:16 Dose: Not Given Escitalopram Oxalate (Escitalopram Oxalate 10 Mg Tab) 15 mg PO DAILY DEVIN Stop: 10/15/24 08:59 Last Admin: 09/20/24 08:57 Dose: 15 mg Ferrous Sulfate (Ferrous Sulfate 325 Mg Tab) 325 mg PO BID DEVIN Stop: 10/19/24 20:59 Last Admin: 09/20/24 08:58 Dose: 325 mg Furosemide (Furosemide 40 Mg Tab) 40 mg PO QAM DEVIN Stop: 10/15/24 08:59 Last Admin: 09/16/24 09:18 Dose: 40 mg Glucagon (Glucagon For Inj 1 Mg Vial) 1 mg SQ UD PRN; Protocol PRN Reason: Hypoglycemia Protocol Stop: 10/14/24 17:27 Glucose (Glucose 40% Gel 15 Gm Tube) 15 - 30 gm PO UD PRN; Protocol PRN Reason: Hypoglycemia Protocol Stop: 10/14/24 17:27 Glucose (Glucose 10 Tab/Tube) 4 - 8 tab PO UD PRN; Protocol PRN Reason: Hypoglycemia Protocol Stop: 10/14/24 17:27 Promethazine HCl (Phenergan) 6.25 mg in 50.25 mls @ 201 mls/hr IV Q6H PRN PRN Reason: Nausea And Vomiting Stop: 10/14/24 18:06 Last Infusion: 09/15/24 10:29 Dose: Infused Insulin Aspart (Insulin Aspart Per Unit Charge) 0 units SC DAILY@0730 [facility] Stop: 10/18/24 07:29 Last Admin: 09/20/24 08:56 Dose: 25 units Insulin Aspart (Insulin Aspart Per Unit Charge) 0 units SC TID@1130,1630,2100 [facility] Stop: 10/18/24 11:29 Last Admin: 09/20/24 12:24 Dose: 13 units Insulin Glargine (Lantus Per Unit Charge) 60 units SC DAILY [facility]; Protocol Stop: 10/18/24 08:59 Last Admin: 09/20/24 08:56 Dose: 60 units Melatonin (Melatonin 3 Mg Tab) 6 mg PO HS PRN PRN Reason: Sleep Stop: 10/15/24 20:59 Last Admin: 09/19/24 21:09 Dose: 6 mg Miscellaneous (Carbohydrates For Hypoglycemia ) 15 - 30 gm PO UD PRN PRN Reason: Hypoglycemia Protocol Stop: 10/14/24 17:27 Miscellaneous Information (Pharmacy Glycemic Mgmt Consult) 1 each N/A UD PRN PRN Reason: Consult Stop: 10/14/24 17:27 Ondansetron HCl (Ondansetron Inj 2 Mg/Ml 2 Ml Vial) 4 mg IV Q4H PRN PRN Reason: Nausea Stop: 10/15/24 10:00 Last Admin: 09/15/24 23:19 Dose: 4 mg Pantoprazole Sodium (Pantoprazole 40 Mg Tab) 40 mg PO DAILY [facility] Stop: 10/15/24 08:59 Last Admin: 09/20/24 08:58 Dose: 40 mg Polyethylene Glycol (Polyethylene (Miralax) 17 Gm Pack) 17 gm PO DAILY [facility] Stop: 10/16/24 16:14 Last Admin: 09/20/24 08:58 Dose: 17 gm Tamsulosin HCl (Tamsulosin Hcl 0.4 Mg Cap) 0.4 mg PO DAILY [facility] Stop: 10/15/24 08:59 Last Admin: 09/20/24 08:57 Dose: 0.4 mg Vitamin D (Cholecalciferol 25 Mcg (1000 Units) Tab) 25 mcg PO DAILY [facility] Stop: 10/19/24 08:59 Last Admin: 09/20/24 08:58 Dose: 25 mcg
[2024-09-21] MEDS: LANTUS PER UNIT CHARGE SC SCH (08:48)
--- NOTE | 2024-09-21 14:28 | Hospitalist Progress Note ---
Date of Service September 21, 2024 Assessment & Plan (1) Suicidal ideation: (2) Hyperglycemia: Plan: This is a 74-year-old male with history of major depressive disorder, panic disorder, sick sinus syndrome status post pacemaker, diabetes type 2 with polyneuropathy, hypertension, CKD stage III presenting with suicidal ideation. Suicidal ideation History of major depressive disorder, panic disorder Usually on escitalopram, not taking recently due to feeling " overwhelmed " - has been resumed during admission and tolerating well No longer requiring 1:1 per psych. Denies any more SI. Looks depressed and has been conversing reasonably and appropriately Psych re evaluated and felt inpt psych was not necessary at this time Has been working with OT; who recommended returning home with additional support with IADL's. 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 Iron Deficiency anemia Hgb 7.5 on 09/20 Iron/Ferritin low, TIBC High On oral Iron, last iron panel done in March (normal) On PPI, monitor h/h closely given hx of varices Upper GI last done 04/07; grade 1 varices and portal HTN gastropathy Recommend repeat was to be 08/2024 Consider blood transfusion for hgb <7 Given Venofer yesterday and today; takes daily Ferrous Sulfate; will increase to BID starting tonight given that he has received loading Iron recommend outpt c scope/endoscopy - pt declines work up at this time, will defer to pcp recommend repeat cbc in 1 week Hyperglycemia Uncontrolled diabetes type 2 A1C 16.9 Plan to d/c on once daily Lantus, Jardiance will d/c ozempic as pt wasn't tolerating Sick sinus syndrome status post pacemaker No cardiac symptoms CHF, grade 1 diastolic dysfunction Strict I&Os Last echo in March with preserved LVEF Appears euvolemic today - still with poor PO intake. Holding lasix CKD stage III Stable BPH UA no signs of UTI Continue usual alfuzosin DVT prophylaxis D/c lovenox if favor of scds in setting of anemia Full code per patient PCP: CHEPE Perez Disposition Home discussed with CM who will place referrals to home health, OOA and MOW I spent a total of 46 case management assisting minutes coordinating, documenting, and providing care for this patient excluding time spent in the performance of separately billed services. Discussed with angeli Boykin, , regarding current plan of care and plan to tentative d/c on 09/22. He agrees with above. Admission and Anticipated Discharge Date Admission Date: September 14, 2024 Supervising Physician Co-Signing Physician Notes 09/21/2024 The patient was seen and examined in medical floor He has been feeling much better and denies any symptoms He has been cleared by the psychiatrist to be discharged Will have PT and OT evaluation and also diabetic teaching before discharge On examination Lying in bed without any acute distress Hemodynamically stable Other system examination with unremarkable His labs and medications reviewed Has uncontrolled diabetes with anxiety/depressionmanaged appropriately Appreciate assessment and plan as outlined above by Marj Moss PA-C and take the full responsibility of care in the hospital DR Chrissy Chavez Subjective Seen and examined in [facility]-2. He reports feeling okay today. He is independent in his room. Denies f/c/s, chest pain, sob, n/v/d. He is hopeful to go home tomorrow. Review of Systems Review of Systems: All systems reviewed & are unremarkable except as noted in HPI & below Physical Exam Physical Exam: Gen: WD/WN, M, lying in bed, NAD, A&O x3, flat affect but answers questions appropriately HEENT: Normocephalic, atraumatic, conjunctivae moist, sclerae anicteric, mucous membranes moist. Lung: Clear to Auscultation bilaterally, no wheezes/rales/rhonchi Heart: Regular rate, regular rhythm, no murmurs, rubs, or gallops Abdomen: Soft, NT, ND +BS x 4 Extremities: No edema Skin: Warm, no rash, negative turgor. Results & Data Results & Data Vital Signs (Past 12 Hours) Vital Signs Temp Pulse Resp BP Pulse Ox O2 Del Method 09/21/24 07:28 36.8 C 66 16 127/54 L 94 Room Air Medications Administered Current Inpatient Medications Acetaminophen (Acetaminophen 325 Mg Tab) 650 mg PO Q4H PRN PRN Reason: Pain or Fever Stop: 10/14/24 17:27 Allopurinol (Allopurinol 100 Mg Tab) 100 mg PO QAM COUNTS INCLUDE 234 BEDS AT THE [facility] Stop: 10/15/24 08:59 Last Admin: 09/21/24 08:37 Dose: 100 mg Atorvastatin Calcium (Atorvastatin 40 Mg Tab) 80 mg PO HS COUNTS INCLUDE 234 BEDS AT THE [facility] Stop: 10/14/24 20:59 Last Admin: 09/20/24 21:05 Dose: 80 mg Dextrose (Dextrose 50% 50 Ml Syringe) 25 - 50 ml IV UD PRN; Protocol PRN Reason: Hypoglycemia Protocol Stop: 10/14/24 17:27 Enoxaparin Sodium (Enoxaparin Inj 40 Mg/0.4 Ml Syr) 40 mg SQ Q24H COUNTS INCLUDE 234 BEDS AT THE [facility] Stop: 10/14/24 17:59 Last Admin: 09/14/24 20:16 Dose: Not Given Escitalopram Oxalate (Escitalopram Oxalate 10 Mg Tab) 15 mg PO DAILY DEVIN Stop: 10/15/24 08:59 Last Admin: 09/21/24 08:36 Dose: 15 mg Ferrous Sulfate (Ferrous Sulfate 325 Mg Tab) 325 mg PO BID DEVIN Stop: 10/19/24 20:59 Last Admin: 09/21/24 08:37 Dose: 325 mg Furosemide (Furosemide 40 Mg Tab) 40 mg PO QAM COUNTS INCLUDE 234 BEDS AT THE [facility] Stop: 10/15/24 08:59 Last Admin: 09/16/24 09:18 Dose: 40 mg Glucagon (Glucagon For Inj 1 Mg Vial) 1 mg SQ UD PRN; Protocol PRN Reason: Hypoglycemia Protocol Stop: 10/14/24 17:27 Glucose (Glucose 40% Gel 15 Gm Tube) 15 - 30 gm PO UD PRN; Protocol PRN Reason: Hypoglycemia Protocol Stop: 10/14/24 17:27 Glucose (Glucose 10 Tab/Tube) 4 - 8 tab PO UD PRN; Protocol PRN Reason: Hypoglycemia Protocol Stop: 10/14/24 17:27 Promethazine HCl (Phenergan) 6.25 mg in 50.25 mls @ 201 mls/hr IV Q6H PRN PRN Reason: Nausea And Vomiting Stop: 10/14/24 18:06 Last Infusion: 09/15/24 10:29 Dose: Infused Insulin Aspart (Insulin Aspart Per Unit Charge) 0 units SC DAILY@0730 COUNTS INCLUDE 234 BEDS AT THE [facility] Stop: 10/18/24 07:29 Last Admin: 09/21/24 08:49 Dose: 29 units Insulin Aspart (Insulin Aspart Per Unit Charge) 0 units SC TID@1130,1630,2100 COUNTS INCLUDE 234 BEDS AT THE [facility] Stop: 10/18/24 11:29 Last Admin: 09/21/24 12:21 Dose: 17 units Insulin Glargine (Lantus Per Unit Charge) 70 units SC DAILY COUNTS INCLUDE 234 BEDS AT THE [facility]; Protocol Stop: 10/18/24 08:59 Last Admin: 09/21/24 08:48 Dose: 70 units Melatonin (Melatonin 3 Mg Tab) 6 mg PO HS PRN PRN Reason: Sleep Stop: 10/15/24 20:59 Last Admin: 09/20/24 21:06 Dose: 6 mg Miscellaneous (Carbohydrates For Hypoglycemia ) 15 - 30 gm PO UD PRN PRN Reason: Hypoglycemia Protocol Stop: 10/14/24 17:27 Miscellaneous Information (Pharmacy Glycemic Mgmt Consult) 1 each N/A UD PRN PRN Reason: Consult Stop: 10/14/24 17:27 Ondansetron HCl (Ondansetron Inj 2 Mg/Ml 2 Ml Vial) 4 mg IV Q4H PRN PRN Reason: Nausea Stop: 10/15/24 10:00 Last Admin: 09/15/24 23:19 Dose: 4 mg Pantoprazole Sodium (Pantoprazole 40 Mg Tab) 40 mg PO DAILY COUNTS INCLUDE 234 BEDS AT THE [facility] Stop: 10/15/24 08:59 Last Admin: 09/21/24 08:37 Dose: 40 mg Polyethylene Glycol (Polyethylene (Miralax) 17 Gm Pack) 17 gm PO DAILY COUNTS INCLUDE 234 BEDS AT THE [facility] Stop: 10/16/24 16:14 Last Admin: 09/21/24 08:40 Dose: Not Given Tamsulosin HCl (Tamsulosin Hcl 0.4 Mg Cap) 0.4 mg PO DAILY COUNTS INCLUDE 234 BEDS AT THE [facility] Stop: 10/15/24 08:59 Last Admin: 09/21/24 08:37 Dose: 0.4 mg Vitamin D (Cholecalciferol 25 Mcg (1000 Units) Tab) 25 mcg PO DAILY COUNTS INCLUDE 234 BEDS AT THE [facility] Stop: 10/19/24 08:59 Last Admin: 09/21/24 08:36 Dose: 25 mcg
--- OUTSIDE RECORDS SUMMARY | 2024-09-22 00:11 | External Medical Summary | Summary of Care ---
Author Name Unknown Organization [facility] Address [address] [facility] [place] [address] Phone [phone] Care Team Providers Care Button Sawyer Name Role Phone Donovan Ruvalcaba Primary Care Provide r Reason for Visit * Reason Onset Date Comments Pacemaker Clinic 09/15/2024 Remote transmis fabian Encounter Details Date Type Department Care Team (Late st Contact Info) Description 09/15/2024 Telephone Cardiology, [facility] [address] [facility] [place] [address] [place], Pacer Clinic [facility] [address] [facility] [place] [address] Pacemaker Clinic (Remote transmission ) Allergies Active Allergy Reactions Criticality Noted Date Comments Iodinated Contrast Media High 07/13/2021 MRI Other Reaction(s): Vomiting Quinolones Unknown 04/08/1998 ? yrs. ago? documented as of this encounter (statuses as of 09/17/2024) Medications ONE TOUCH LANCETS MISCIndications:D M type 2, not at goal ([facility]) as directed 100 5 2 Active ONE TOUCH STRP VIIndications:DM type 2, not at goal ([facility]) once daily 50 5 7 [...] as of this encounter (statuses as of 09/17/2024) Active Problems Problem Noted Date Diagnosed Date [...] Overview (04/28/2024): Jun 13, 2023 Entered By: ARAD ORTIZ Comment: due to GARCES per GI [...] on left side 06/30/2014 Overview (07/09/2014): admitted [facility], cystoscopy, ureteroscopy, lithrotripsy, with ureteral stent [...] as of this encounter (statuses as of 09/17/2024) Resolved Problems Problem Noted Date Diagnosed Date [...] as of this encounter (statuses as of 09/17/2024) Immunizations Name Administration Dates Next Due Pneumococcal [...] Job Start Date Job End Date Carisa hayes [email or web address] Not on file Not on file Not on file documented as of this encounter Miscellaneous Notes * Telephone Encounter - Ritika Birch CRNP - 09/17/2024 4:14 PM EST Also in agreement with Ms. Jay's recommendation. Reviewed this in coverage of Dr. Do * Telephone Encounter - Elisa Jay PA-C - 09/17/2024 3:25 PM EST Patient currently admitted at [facility] for depression and suicidal ideations. Has been overwhelmed by calls in past and has history of medication noncompliance. I think it would be best to review his device interrogation in person at his upcoming office visit. * Telephone Encounter - Kiah White LPN - 09/15/2024 9:15 AM EST Normal Remote: With Events Normal Device Function Events or Alerts: 1 Battery: 3.06V, 13.08 yrs Sensing, impedance and thresholds reviewed Programmed parameters reviewed Presenting rhythm ASVP Heart Rate Histograms reviewed Tachycardia: AFL Stored EGMs are consistent with or suggestive of Atrial Flutter AT [employer]: 0% Total number of events: 1 Episode lasting 4min 53sec Alert: Yellow A Yellow Alert was reported by the device: New onset AFL Episode lasting 4min 53sec documented in this encounter Plan of Treatment Upcoming Encounters Date Type Department Care Team (Late st Contact Info) Description 10/13/2024 12:00 PM EST Office Visit Gastroenterology, [facility] [address] [facility] [place] [address] Viridiana Ortiz CRNP [address] [facility] [place] [address] 10/13/2024 3:00 PM EST Laboratory Laboratory [facility] [address] [place] [phone] [facility] [address] [facility] [place] [address] 10/13/2024 4:00 PM EST Office Visit Hematology/Oncology [facility] [address] [facility] [place] [phone] Bette Ortiz CRNP [address] [facility] [place] [address] 11/12/2024 1:30 PM EST Office Visit Cardiology, [facility] [address] [facility] [place] [address] Elisa Jay PA-C [address] [facility] [address] [phone] Health Maintenance Due Date Last Done Comments CKD PHOS USE SMARTSET 22691 1967 DTap/Tdap Vaccines (1 - Tdap) 01/22/1968 [...] COPD 03/17/2025 03/17/2024 CKD HGB USE SMARTSET 87007 04/13/202504/13, 04/13/2024, 10/14/2023, Additional history exists Depression Monitoring 06/19/2025 06/19/2024 Colonoscopy 07/24/2026 07/24/2021, 04/2021, 09/15/2018, Additional history exists Pneumococcal Vaccine: 50+ Years Completed 05/29/2017, 05/24/2016, 03/29/2014 Hepatitis B [...] filedocumented as of this encounter Care Teams Button Sawyer Relationship Specialty Start Date End Date Donovan Ruvalcaba CRNP [address] [place] [address] PCP - General Nurse Practitioner 03/20/24 documented as of this encounter
--- OUTSIDE RECORDS SUMMARY | 2024-09-22 00:11 | External Medical Summary | Summary of Care ---
Author Name Unknown Organization [facility] Address [address] [facility] [place] [address] Phone [phone] Care Team Providers Care Websphere Portal Developer Name Role Phone Donovan Ruvalcaba Primary Care Provide r Reason for Visit * Reason Onset Date Comments Pacemaker Clinic 09/15/2024 Remote transmis fabian Encounter Details Date Type Department Care Team (Late st Contact Info) Description 09/15/2024 Telephone Cardiology, [facility] [address] [facility] [place] [address] [place], Pacer Clinic [facility] [address] [place] [address] Pacemaker Clinic (Remote transmission ) Allergies Active Allergy Reactions Criticality Noted Date Comments Iodinated Contrast Media High 07/13/2021 MRI Other Reaction(s): Vomiting Quinolones Unknown 04/08/1998 ? yrs. ago? documented as of this encounter (statuses as of 09/17/2024) Medications ONE TOUCH LANCETS MISCIndications:D M type 2, not at goal ([facility]) as directed 100 5 2 Active ONE TOUCH STRP VIIndications:DM type 2, not at goal ([facility]) once daily 50 5 7 [...] on left side 06/30/2014 Overview (07/09/2014): admitted [facility], cystoscopy, ureteroscopy, lithrotripsy, with [...] encounter Miscellaneous Notes * Telephone Encounter - Elisa Jay PA-C - 09/17/2024 3:25 PM EST Patient currently admitted at [facility] for depression and suicidal ideations. Has been [...] with or suggestive of Atrial Flutter AT [place]: 0% Total number of events: 1 Episode lasting 4min 53sec Alert: Yellow A Yellow Alert was reported by the device: New onset AFL Episode lasting 4min 53sec documented in this encounter Plan of Treatment Upcoming Encounters Date Type Department Care Team (Late st Contact Info) Description 10/13/2024 12:00 PM EST Office Visit Gastroenterology, [facility] [address] [place] [address] Viridiana Ortiz CRNP [address] [place] [address] 10/13/2024 3:00 PM EST Laboratory Laboratory [facility] [address] [place], [place] [phone] [place], Lab [facility] [address] [place], [place] [address] 10/13/2024 4:00 PM EST Office Visit Hematology/Oncology [facility] [address] [place] [phone] Bette Ortiz CRNP [address] [facility] [place] [phone] 11/12/2024 1:30 PM EST Office Visit Cardiology, [facility] [address] [facility] [address] [facility] [place] [address] Elisa Jay PA-C [address] [facility] [place] [address] Health Maintenance Due Date Last Done Comments CKD PHOS USE SMARTSET 47091 1968 DTap/Tdap Vaccines (1 - Tdap) 01/22/1969 [...] COPD 03/17/2025 03/17/2024 CKD HGB USE SMARTSET 20870 04/13/202504/13, 04/13/2024, 10/14/2023, Additional history exists Depression [...] filedocumented as of this encounter Care Teams Websphere Portal Developer Relationship Specialty Start Date End Date Donovan Ruvalcaba CRNP [address] [place] [address] PCP - General Nurse Practitioner 03/20/24 documented as of this encounter
--- OUTSIDE RECORDS SUMMARY | 2024-09-22 00:11 | External Medical Summary | Summary of Care ---
Author Name Unknown Organization [facility] Address [address] [facility] [place] [address] Phone [phone] Care Team Providers Care Store Protection Specialist Name Role Phone Donovan Ruvalcaba Primary Care Provide r Encounter Details Date Type Department Care Team (Late st Contact Info) Description 09/17/2024 Population Health External Data Unspecified Department Allergies Active Allergy Reactions Criticality Noted Date [...] Overview (04/28/2024): Jan 06, 2008 Entered By: LASHLEL WINCHESTER MD Comment: s/p negative biopsies 11/21 [...] left side 06/30/2014 Overview (07/09/2014): admitted [facility], cystoscopy, ureteroscopy, lithrotripsy, with ureteral stent [...] Industry Job Start Date Job End Date [employer] Not on file Not on file Not on file documented as of this encounter Plan of Treatment Upcoming Encounters Date Type Department Care Team (Late st Contact Info) Description 10/13/2024 12:00 PM EST Office Visit Gastroenterology, [facility] [address] [facility] [place] [address] Viridiana Ortiz CRNP 132 [facility] [place] [address] 10/13/2024 3:00 PM EST Laboratory Laboratory [facility] [address] [place] [phone] [place], Lab [facility] [address] [facility] [place] [address] 10/13/2024 4:00 PM EST Office Visit Hematology/Oncology [facility] [address] [place] [phone] Bette Ortiz CRNP [address] [place] [address] 11/12/2024 1:30 PM EST Office Visit Cardiology, [facility] [address] [facility] [place] [address] Elisa Jay PA-C [address] [facility] [address] [phone] Health Maintenance Due Date Last Done Comments CKD PHOS USE SMARTSET 69694 1968 DTap/Tdap Vaccines (1 - Tdap) 01/22/1968 [...] COPD 03/17/2025 03/17/2024 CKD HGB USE SMARTSET [address] 04/13/202504/13, 04/13/2024, 10/14/2023, Additional history exists Depression [...] filedocumented as of this encounter Care Teams Store Protection Specialist Relationship Specialty Start Date End Date Donovan Ruvalcaba CRNP [address] [place] [address] PCP - General Nurse Practitioner 03/20/24 documented as of this encounter
--- OUTSIDE RECORDS SUMMARY | 2024-09-22 00:12 | External Medical Summary | Summary of Care ---
Author Name Unknown Organization [facility] Address [address] [facility] [place] [address] Phone [phone] Care Team Providers Care Oil Pipe Inspector Name Role Phone Donovan Ruvalcaba Primary Care Provide r Reason for Visit * Reason Onset Date Comments Pacemaker Clinic 09/15/2024 Remote transmis fabian Encounter Details Date Type Department Care Team (Late st Contact Info) Description 09/15/2024 Telephone Cardiology, [facility] [address] [facility] [place] [address] [place], Pacer Clinic [facility] [address] [place] [address] Pacemaker Clinic (Remote transmission ) Allergies Active Allergy Reactions Criticality Noted Date Comments Iodinated Contrast Media High 07/13/2021 MRI Other Reaction(s): Vomiting Quinolones Unknown 04/08/1998 ? yrs. ago? documented as of this encounter (statuses as of 09/15/2024) Medications ONE TOUCH LANCETS MISCIndications:D M type 2, not at goal ([facility]) as directed 100 5 2 Active ONE TOUCH STRP VIIndications:DM type 2, not at goal ([facility]) once daily 50 5 7 Active ASPIRIN [...] as of this encounter (statuses as of 09/15/2024) Active Problems Problem Noted Date Diagnosed Date [...] on left side 06/30/2014 Overview (07/09/2014): admitted [facility], cystoscopy, ureteroscopy, lithrotripsy, with ureteral [...] as of this encounter (statuses as of 09/15/2024) Resolved Problems Problem Noted Date Diagnosed Date [...] as of this encounter (statuses as of 09/15/2024) Immunizations Name Administration Dates Next Due Pneumococcal [...] Job Start Date Job End Date [employer] Not on file Not on file Not on file documented as of this encounter Miscellaneous Notes * Telephone Encounter - Kiah White LPN - 09/15/2024 9:15 AM EST Normal Remote: With Events Normal Device Function Events or Alerts: 1 Battery: 3.06V, 13.08 yrs Sensing, impedance and thresholds reviewed Programmed parameters reviewed Presenting rhythm ASVP Heart Rate Histograms reviewed Tachycardia: AFL Stored EGMs are consistent with or suggestive of Atrial Flutter AT [place]: 0% Total number of events: 1 Episode lasting 4min 53sec Alert: Yellow A Yellow Alert was reported by the device: New onset AFL Episode lasting 4min 53sec documented in this encounter Plan of Treatment Upcoming Encounters Date Type Department Care Team (Late st Contact Info) Description 10/13/2024 12:00 PM EST Office Visit Gastroenterology, [facility] [address] Viridiana Ortiz CRNP [address] [facility] [address] 10/13/2024 3:00 PM EST Laboratory Laboratory [facility] [address] [place] [phone] Marquis Benjamin [facility] [address] [facility] [place] [address] 10/13/2024 4:00 PM EST Office Visit Hematology/Oncology [facility] [address] [place] [phone] Bette Ortiz CRNP [address] [place] [address] 11/12/2024 1:30 PM EST Office Visit Cardiology, [facility] [address] [place] [address] Elisa Jay PA-C [address] [place] [address] Health Maintenance Due Date Last Done Comments CKD PHOS USE SMARTSET 65680 1968 DTap/Tdap Vaccines (1 - Tdap) 01/22/1969 [...] COPD 03/17/2025 03/17/2024 CKD HGB USE SMARTSET 53179 04/13/202504/13, 04/13/2024, 10/14/2023, Additional history exists Depression [...] filedocumented as of this encounter Care Teams Oil Pipe Inspector Relationship Specialty Start Date End Date Donovan Ruvalcaba CRNP [address] [place] [address] PCP - General Nurse Practitioner 03/20/24 documented as of this encounter
[2024-09-22 07:42] VITALS: PULSE 75; RESP 18; TEMP 97.7; O2SAT 93
--- NOTE | 2024-09-22 09:36 | Pharmacy Report ---
Pharmacy Glycemic Short Note 2 - Date of Service September 22, 2024 - Glycemic Short BSG Results (Last 24 hours): 09/21/24 09/21/24 09/21/24 11:23 16:48 20:07 POC Glucose 255 H 153 H 170 H 09/22/24 07:36 POC Glucose 208 H OUTPATIENT ANTIDIABETIC REGIMEN: * Lantus 44 units bid, empagliflozin 25 mg once daily, ozempic 0.25 mg SQ weekly HbA1c > 16.9% (09/15/24) ASSESSMENT: 09/22: * Blood sugars elevated over past 48 hours, ranging 153-255 mg/dL * Received 135 units of insulin yesterday (70 units of basal and 65 units of prandial/correctional bolus) * Novolog tightened yesterday and basal increased. Will tighten Novolog again today and consider further increase in basal w/ HS scale 09/20: * Simone received 96 units of insulin yesterday, 40 basal + 56 bolus. BSGs were: [phone] mg/dL. * Fasting BSG increased to 156 mg/dL this AM. Believe fasting below goal yesterday may have been related to patient receiving 80 units of basal for a few days prior. Do not believe 40 units of basal is sufficient for this patient. Will schedule 60 units of basal daily to see how patient responds. * Patient has had tighter Novolog parameters with breakfast only for a few days now. Lunchtime BSGs remain well above goal. Will tighten just carb ratio with breakfast only today. 09/18/24 * Stressors stable * Am fasting BSG now in goal range, but with notable trend down. Will reduce Lantus slightly to help prevent further decline and also scale for tomorrow * Trend x2 days with lowest BSG at dinner - possibly from high lunch BSG with overcorrection. Will therefore have tighter scale with breakfast but looser with lunch, dinner and HS 09/17/24 * Patient received 141 units of insulin yesterday, 80 units basal, fasting BG at goal, continue. * BG up and down throughout yesterday, continue current NovoLog parameters at this time. * Plan for inpatient psych treatment. CDE Consult placed. 09/15 * 74 year old admitted for hyperglycemia last evening, started on insulin infusion. Labs stable, insulin drip initiated for hyperglycemia. Per provider notes, patient currently not taking home diabetic medications. Insulin infusion running this AM ~3.6 units/hr - Will give Lantus 60 units x 1 now to overlap with insulin infusion. Dosing is similar to another prior admission. Will d/c insulin infusion at noon and transition to SQ moving forward. May potentially add on Lantus scale for HS in case BSGs trend upwards. PLAN FOR INPATIENT GLYCEMIC CONTROL: * Hold outpatient diabetes medications * Basal insulin * Lantus 70 units SC daily * Lantus scale SC HS (see EHR for details) * Bolus insulin * NovoLog per scale ACHS or Q6hrs while NPO * Goal Range: Low 110 mg/dL - High 140 mg/dL * Correction Factor: 10 mg/dL/unit with breakfast, 15 mg/dL/unit with lunch, dinner, HS * CHO ratio: 2 g CHO/unit with breakfast, 4 g CHO/unit with lunch, dinner, HS
--- NOTE | 2024-09-22 12:01 | Discharge Summary ---
Discharge Summary Date of Service September 22, 2024 Principal Dx & Hospital Course #1 = Principal Diagnosis (1) Suicidal ideation: (2) Hyperglycemia: This is a 74-year-old male with history of major depressive disorder, panic disorder, sick sinus syndrome status post pacemaker, diabetes type 2 with polyneuropathy, hypertension, CKD stage III presenting with suicidal ideation. Suicidal ideation History of major depressive disorder, panic disorder Usually on escitalopram, not taking recently due to feeling " overwhelmed " - has been resumed during admission and tolerating well No longer requiring 1:1 per psych. Denies any more SI. Looks depressed and has been conversing reasonably and appropriately Psych re evaluated and felt inpt psych was not necessary at this time Has been working with OT; who recommended returning home with additional support with IADL's. 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 Iron Deficiency anemia Hgb 7.5 on 09/20 Iron/Ferritin low, TIBC High On oral Iron, last iron panel done in March (normal) On PPI, monitor h/h closely given hx of varices Upper GI last done 04/07; grade 1 varices and portal HTN gastropathy Recommend repeat was to be 08/2024 Consider blood transfusion for hgb <7 Given Venofer yesterday and today; takes daily Ferrous Sulfate; will increase to BID starting tonight given that he has received loading Iron recommend outpt c scope/endoscopy - pt declines work up at this time, will defer to pcp recommend repeat cbc in 1 week Hyperglycemia Uncontrolled diabetes type 2 A1C 16.9 Plan to d/c on once daily Lantus, Jardiance will d/c ozempic as pt wasn't tolerating will need close outpatient follow up for further medication adjustments Sick sinus syndrome status post pacemaker No cardiac symptoms CHF, grade 1 diastolic dysfunction Strict I&Os Last echo in March with preserved LVEF Appears euvolemic today - still with poor PO intake. Holding lasix for now given intermittent intake. Will defer to PCP regarding resumption of this medication CKD stage III Stable BPH UA no signs of UTI Continue usual alfuzosin Full code per patient PCP: CHEPE Perez Disposition Home with home health services today Notes For Next Care Provider Repeat CBC in 1 week of discharge. Please ensure pt has appropriate GI follow up regarding Anemia. Please have patient follow with a Pet Counselor, A1C was > 16.9 on admission. He will likely need adjustments to his regimen. Medication Changes From Visit Lantus - Inject 70 units subcutaneously once daily in the morning. Your next dose is scheduled on the morning of 09/23/23. Increase your Iron tablet (Ferrous Sulfate) to twice daily. Please do not take your furosemide until you are seen by your Primary Care Provider. Please discuss with them if/when you should resume. Please stop taking Ozempic Admission HPI Per Admitting Provider 74-year-old male with history of major depressive disorder, panic disorder, sick sinus syndrome status post pacemaker, diabetes type 2 with polyneuropathy, hypertension, CKD stage III presenting with suicidal ideation. History obtained from ER physician and patient. Patient has not been taking his psychiatric medications and insulin for the past few months because he feels "overwhelmed ". He has been being worsening of mood and elevated blood sugar as a result of this. Today, patient was sent by primary care physician due to suicidal ideation. At the ER, patient received with stable vital signs. BSG found to be 745 No anion gap, no acidosis Patient given 8 units of insulin NovoLog. Hospitalist consulted for admission-mental health evaluation and hyperglycemia. On exam patient seen resting in bed, sitting up, comfortable, not in distress, oriented x 3, answering of questions appropriately, calm and cooperative. When asked if he is still having thoughts of suicidal ideations, patient reports " I do not have anything around here to use for it". Patient reassured that we are going to help him including psychiatry evaluation, and medical treatment. Patient verbalized understanding and agreement He denies headache, dizziness, sore throat, chest pain, cough, abdominal pain, nausea vomiting. He reports urinary incontinence but no dysuria No diarrhea Admission Exam Per Admitting Provider General- oriented x 3, not in distress, speaks in sentences with no effort or accessory muscle use Head- atraumatic Eyes- PERRL, EOMI, anicteric ENT- oropharynx clear Neck- supple, no JVD, no adenopathy, no thyromegaly; carotids +2/2, no bruits appreciated Lungs- clear to auscultation bilaterally, no rales/wheezes Heart- normal rate, regular rhythm; no murmur, no gallop, no rub appreciated Abdomen- normal bowel sounds, nondistended, soft, nontender, no masses or hepatosplenomegaly Extremities- no pretibial edema, no calf tenderness; peripheral pulses intact Neuro- alert, oriented x 3; CN 2-12 grossly intact; motor 5/5 bilaterally;sensation 100% on all extremities; no other gross focal neurologic deficits Skin- warm & dry Psych- depressed affect but calm, cooperative Discharge Exam Gen: WD/WN, M, lying in bed, NAD, A&O x3, pleasant HEENT: Normocephalic, atraumatic, conjunctivae moist, sclerae anicteric, mucous membranes moist. Lung: Clear to Auscultation bilaterally, no wheezes/rales/rhonchi Heart: Regular rate, regular rhythm, no murmurs, rubs, or gallops Abdomen: Soft, NT, ND +BS x 4 Extremities: No edema Skin: Warm, no rash, negative turgor. Updated Medication List Medication Instructions Recorded Confirmed Type glucose 4 gram chewable tablet 4 g PO Q15M PRN Hypoglycemia 01/27/24 09/14/24 History furosemide 20 mg tablet 40 mg PO QAM 09/14/24 09/14/24 History alfuzosin 10 mg tablet,extended 10 mg PO DAILY #90 tabs 09/21/24 Rx release 24 hr allopurinol 100 mg tablet 100 mg PO QAM #30 tabs 09/21/24 Rx ascorbic acid (vitamin C) 500 mg 250 mg (1/2 x 500 mg) PO DAILY #30 09/21/24 Rx tablet,extended release (Vitamin C tabs ER) atorvastatin 80 mg tablet 80 mg PO HS #30 tabs 09/21/24 Rx blood-glucose sensor (Dexcom G7 #1 box 09/21/24 Rx Sensor device) cholecalciferol (vitamin D3) 25 25 mcg PO DAILY #30 tabs 09/21/24 Rx mcg (1,000 unit) tablet empagliflozin 25 mg tablet 25 mg PO QAM #30 tabs 09/21/24 Rx escitalopram oxalate 5 mg tablet 15 mg (3 x 5 mg) PO DAILY #30 tabs 09/21/24 Rx ferrous sulfate 325 mg (65 mg 325 mg PO BID #60 tabs 09/21/24 Rx iron) tablet insulin glargine 100 unit/mL (3 70 unit (0.7 mL) subcut QAM #15 mL 09/21/24 Rx mL) subcutaneous pen (Lantus Solostar U-100 Insulin) pantoprazole 40 mg tablet,delayed 40 mg PO DAILY #30 tabs 09/21/24 Rx release pen needle, diabetic 32 gauge x #100 ea 09/21/24 Rx 32" (Pen Needle) Hospital Stay Data Consultations 09/14/24 16:20 Consult Psychiatry Stat 09/14/24 16:26 ED Decision to Admit Stat Diagnostic Imagining Performed 09/14/24 14:21 CT head/brain wo con Stat Pending Results Patient Have Any Pending Studies at Discharge: No Discharge Instructions Given to Patient (Per Discharging Provider) Carlo Lew were admitted to the [facility] on September 14 with suicidal ideation symptoms. Originally, our psychiatric liason evaluated you and we are grateful that you were receptive to remaining in the hospital in order to keep you safe. You expressed that you had been taking a medication called Lexapro but had stopped taking it in previous weeks. You also indicated that you felt dizzy with changing positions. You stated that you missed taking this medications for many weeks due to caring for your and "I put off taking them and then it would be the afternoon and I'd decide not to take it and then I'd forget". Your blood sugar was found to be uncontrolled and was measuring greater than 600. While you have been using a dexcom; it is recommended that you establish a relationship with a clinical systems educator in order to gain better control of your diabetes. You have been working with occupational therapy while here who recommended returning home with additional support throughout your day. MEDICATION CHANGES: Lantus - Inject 70 units subcutaneously once daily in the morning. Your next dose is scheduled on the morning of 09/23/23. Increase your Iron tablet (Ferrous Sulfate) to twice daily. Please do not take your furosemide until you are seen by your Primary Care Provider. Please discuss with them if/when you should resume. Please stop taking Ozempic SUMMARY OF TEST RESULTS: 09/[address]: No acute intracranial findings. 09/14 Chest x-ray: Cardiomegaly. Interstitial thickening which may reflect mild pulmonary edema. An infectious process could appear similar although is considered less likely. RECOMMENDATIONS FOR FOLLOW-UP: 1. Follow up with your PCP within one week upon your discharge from the hospital 2. Follow up with outpatient Psychiatry: 3. It is recommended that you follow with a clinical systems educator 4. It is recommended that you avoid driving for the near future and obtain your meals from an outside service such as [employer] Whe[employer] 5. Please Monitor your blood sugar on your Dexcom. Keep a log of your blood sug ar and take this with you to your next Primary Care Appointment. 6. If your blood sugar is consistently running over 300 or less than 100 please contact your Primary Care Provider immediately for further instructions. 7. Please monitor for signs and symptoms of hypoglycemia including lightheaded, dizziness, nausea, sweating, shakiness, blurred vision or headache. If you notice any of these symptoms please monitor your blood sugar immediately. It is important to have a small snack or glucose tablets on hand in the event your blood sugar drops. A low blood sugar is anything less than 80 OR if you are otherwise symptomatic. 8. Please have your Primary Care Provider monitor your blood counts for Anemia. I recommend you have repeat lab work, CBC, in 1 week of discharge. 9. It is recommended you follow up with your Store [facility] and reschedule your Endoscopy and colonoscopy due to your anemia. OTHER INSTRUCTIONS: Seek medical attention if you have: * temperature above 101 * chest pain or trouble breathing * abdominal pain, nausea, vomiting * diarrhea, dark stools or bloody stools * any unanswered questions or concerns Call 911 if symptoms are severe. Please take good care of yourself. It has been a pleasure taking care of you. Please take care of yourself. If you have any questions regarding your recent hospitalization please contact [facility] and request [facility] Santoyo[facility] @ [phone]. Total Time Total Time Spent Total Time Spent (In Minutes): 45 minutes Supervising Physician Co-Signing Physician Notes Attending addendum: The patient was seen and examined in medical floor He has been stable and denies any significant symptoms Has been following diabetic diet and he knows how to use the insulin pen and how to administer insulin He is confident that he will do better with it On examination Lying in bed without any acute distress Hemodynamically stable Other system examination is unremarkable His labs and medications reviewed in detail Recent depression with suicidal ideationresolved with medication Uncontrolled diabeteshas had proper education He was discharged home Reviewed with assessment plan as outlined above by Marj Souza PA-C and take the full responsibility of care in the hospital DR Chrissy Chavez
[2024-09-22 13:28] VITALS: BP 116/60
[2024-09-22] MEDS ORDERED: LANTUS PER UNIT CHARGE SC SCH (21:00)
== END 2024-09-22 15:50 | disposition home health service (06) | DRG 638 ==
LOC: ED 13:24 → EDINP 16:20 → SUATTDRO 16:20 → 3W 09-17 17:29
DX: R45.851 Suicidal ideations; Z79.85 Long-term (current) use of injectable non-insulin antidiabetic drugs; D50.9 Iron deficiency anemia, unspecified; K74.69 Other cirrhosis of liver; I85.10 Secondary esophageal varices without bleeding; E78.5 Hyperlipidemia, unspecified; I50.89 Other heart failure; K75.81 Nonalcoholic steatohepatitis (NASH); Z95.0 Presence of cardiac pacemaker; R45.850 Homicidal ideations; K31.89 Other diseases of stomach and duodenum; Z79.899 Other long term (current) drug therapy; E11.42 Type 2 diabetes mellitus with diabetic polyneuropathy; R53.1 Weakness; T43.226A Underdosing of selective serotonin reuptake inhibitors, initial encounter; Z90.49 Acquired absence of other specified parts of digestive tract; I13.0 Hypertensive heart and chronic kidney disease with heart failure and stage 1 through stage 4 chronic kidney disease, or unspecified chronic kidney disease; E11.65 Type 2 diabetes mellitus with hyperglycemia; I49.5 Sick sinus syndrome; F41.0 Panic disorder [episodic paroxysmal anxiety]; Z79.4 Long term (current) use of insulin; Z98.0 Intestinal bypass and anastomosis status; Z91.041 Radiographic dye allergy status; F32.89 Other specified depressive episodes; Z91.128 Patient's intentional underdosing of medication regimen for other reason; N40.0 Benign prostatic hyperplasia without lower urinary tract symptoms; T38.3X6A Underdosing of insulin and oral hypoglycemic [antidiabetic] drugs, initial encounter; N18.30 Chronic kidney disease, stage 3 unspecified; Z85.038 Personal history of other malignant neoplasm of large intestine; Z63.6 Dependent relative needing care at home; Z87.891 Personal history of nicotine dependence; E11.22 Type 2 diabetes mellitus with diabetic chronic kidney disease; Z79.84 Long term (current) use of oral hypoglycemic drugs

== ENCOUNTER 2024-12-05 11:15 | Inpatient (IN) ==
--- OUTSIDE RECORDS SUMMARY | 2024-12-05 11:20 | External Medical Summary | Summary of Care ---
Author Name Unknown Organization [facility] Address [address] [place] [address] Phone [phone] Care Team Providers Care Director Of Development And Marketing Name Role Phone Donovan Ruvalcaba Primary Care Provide r Reason for Visit * Reason Comments Infusion Venofer / Encounter Details Date Type Department Care Team (Latest Contact Info) Description 11/16/2024 2:30 PM EST Hem/Onc Treatment Hematology/Oncology Treatment, [place] [address] [place] [address] Cassidy, Chair 8 Hem Onc [facility] [address] [place] [address] Iron deficiency anemia due to chronic blood loss* Allergies Active Allergy Reactions Criticality Noted Date Comments Iodinated Contrast Media High 07/13/2021 MRI Other Reaction(s): Vomiting Quinolones Unknown 04/08/1998 ? yrs. ago? documented as of this encounter (statuses as of 11/17/2024) Medications ONE TOUCH LANCETS MISCIndications:D M type 2, not at goal ([facility]) as directed 100 5 2 Active ONE TOUCH STRP VIIndications:DM type 2, not at goal ([facility]) once daily 50 5 7 Active [...] by mouth in the morning. 2 Active hydrOXYzine HCl 10 MG Oral Tablet [...] the morning. 90 Tablet 3 3 Active Alfuzosin HCl ER 10 MG Oral Tablet Extended Release 24 Hour (Uroxatral) Take 1 Tablet by mouth in the morning. Active Escitalopram Oxalate 10 MG Oral Tablet (Lexapro) Take 1 Tablet by mouth in the morning. Active Atorvastatin Calcium 80 MG Oral Tablet (Lipitor) Take 1 Tablet by mouth in the morning. Active Insulin Glargine 100 UNIT/ML Subcutaneous Solution (Lantus) Inject 70 Units under the skin in the morning. Pen. Active Furosemide 20 MG Oral Tablet (Lasix) Take 2 Tablets by mouth in the morning. 180 Tablet 3 4 Active Nadolol 20 MG Oral Tablet (Corgard) Take 1 Tablet by mouth in the morning. 180 Tablet 2 5 Active Spironolactone 50 MG Oral Tablet (Aldactone) Take 1 Tablet by mouth in the morning. 180 Tablet 3 5 Active documented as of this encounter (statuses as of 11/17/2024) Active Problems Problem Noted Date Diagnosed Date Iron deficiency anemia due to chronic blood loss 11/02/2024 Adjustment disorder with mixed anxiety and depre [...] Overview (07/09/2014): admitted [facility], cystoscopy, ureteroscopy, lithrotripsy, with ureteral stent DYSLIPIDEMIA, [...] as of this encounter (statuses as of 11/17/2024) Resolved Problems Problem Noted Date Diagnosed Date [...] as of this encounter (statuses as of 11/17/2024) Immunizations Name Administration Dates Next Due Pneumococcal Polysaccharide PPV23 (Pneumovax) 03/29/2014 Seasonal Influenza, PF, 6 M & above, IM , (FluLaval or Fluzone) 07/09/2022 Seasonal Influenza, [address] Hd, 65+ Yrs 06/06/2023,07/03/2021,05/30/2020 documented as of this encounter Social History Tobacco Use Types Packs/Day Years Used Date Smoking Tobacco: Former Cigarettes 1 15 0 09/16/1963 - 09/16/1978 Smokeless Tobacco: Never Alcohol Use Standard Drinks/Week Comments No 0 (1 standard drink = 0.6 oz pur e alcohol) PHQ-2 Answer Date Recorded PHQ Adult Total Score 0 09/24/2024 Hunger Vital Sign Answer Date Recorded Within the past 12 months, y ou worried that your food would run out before you got the money to buy more. Never true 09/24/19 25 Within the past 12 months, t he food you bought just didn't last and you didn't have money to get more. Never true 09/24/2024 Childcare Answer Date Recorded Do you feel overwhelmed with taking care of a child, family member or friend? No 09/24/2024 Does your family need help f inding childcare? (Household - for ages 0-17 years) Not on file 09/24/2024 Clothing Answer Date Recorded Have you been unable to get clothing when it was really needed? No 09/24/2024 Is your family able to get c lothes or diapers when needed? (Household - for ages 0-17 years) Not on file 09/24/2024 Personal Safety Answer Date Recorded Do you feel unsafe or have concerns for your saf ety? No 09/24/2024 Do you have concerns for you r family's safety? (Household - for ages 0-17 years) Not on file 09/24/2024 Utilities Answer Date Recorded Do you have trouble paying y our heating, water, or electric bill? No 09/24/2024 Is your family able to pay t he heat, water, or electric bill? (Household - for ages 0-17 years) Not on file 09/24/2024 Does your family have access to good internet? (Household - for ages 0-17 years) Not on file 09/24/2024 Employment Status Answer Date Recorded Are you unemployed or without regular income? No 09/24/2024 Does the household have a re gular source of income? (Household - for ages 0-17 years) Not on file 09/24/2024 Social Connections Answer Date Recorded How often do you feel lonely or isolated from th ose around you? Rarely 09/24/2024 Financial Resource Strain Answer Date R ecorded Do you have any trouble payi ng for your medications, or do you think you might in the future? No 09/24/2024 Does your family have troubl e paying for medicine? (Household - for ages 0-17 years) Not on file 09/24/2024 Transportation Needs Answer Date Record ed Do you have trouble getting a ride to medical visits or work? (Adult - for ages 18 years and over) Not on file 09/24/2024 Does your family have a hard time getting a ride to doctors visits? (Household - for ages 0-17 years) Not on file 09/24/2024 Has lack of transportation k ept you from medical appointments, meetings, work, or from getting things needed for daily living? Check all that apply. No 09/24/2024 Do you (or your family) have trouble finding or paying for a ride (transportation)? (Household - for ages 0-17 years) Not on file 09/24/2024 Housing Stability Answer Date Recorded Do you currently live in a s helter or have no steady place to sleep at night? No 09/24/2024 Do you think you are at risk of becoming homeless? (Adult - for ages 18 years and over) Not on file 09/24/2024 Does your family worry about paying for your home or becoming homeless? (Household - for ages 0-17 years) Not on file 0 09/24/2024 Are you homeless or worried that you might be in the future? No 09/24/2024 Are you (or your family) will eless or worried that you might be in the future? (Household - for ages 0-17 years) Not on file Food Insecurity Answer Date Recorded Do you need food for this week? No 09/24/2024 Are you able to get enough f ood for your family? (Household - for ages 0-17 years) Not on file 09/24/2024 Does your family need food t his week? (Household - for ages 0-17 years) Not on file 09/24/2024 Do you always have enough fo od for your family? (Household - for ages 0-17 years) Not on file 09/24/2024 Food Insecurity Answer Date Recorded Within the past 12 months, y ou worried that your food would run out before you got the money to buy more. Never true 09/24/19 25 Within the past 12 months, t he food you bought just didn't last and you didn't have money to get more. Never true 09/24/2024 Do you need food for this week? No 09/24/2024 Sex and Gender Information Value Date Recorded Sex Assigned at Not on file Legal Sex Male 5:24 AM EST Gender Identity Not on file Sexual Orientation Not on file Occupation Industry Job Start Date Job End Date [employer] Not on file Not on file Not on file documented as of this encounter Last Filed Vital Signs Vital Sign Reading Time Taken Comments Blood Pressure 144/70 11/16/2024 2:45 PM EST Pulse 82 11/16/2024 2:45 PM EST Temperature 36.3 C (97.3 F) 11/16/2024 2:45 PM ES T Respiratory Rate 18 11/16/2024 2:45 PM EST Oxygen Saturation 94% 11/16/2024 2:45 PM EST Inhaled Oxygen Concentration - - Weight - - Height - - Body Mass Index - - documented in this encounter Nursing Notes * Sheree Mccoy LPN - 11/16/2024 4:18 PM EST 1618 Patient completed IV therapy. IV access discontinued; site cleaned and bandaged. Patient instructed to remove Coban wrap after 30 minutes. Patient understood and agreed. Patient discharged in stable condition and will return on November 23. * Carolina Canales LPN - 11/16/2024 2:45 PM EST 1430: Pt arrived for Venofer 10/20 infusion. PIV in LFA. Pt tolerated well. VSS. Pt has no complaintsat this time. Patient instructed on use of heat and massage functions where applicable. Patient shown how to operate the heat function of the chair and to alert nursing staff if the chair feels too warm. Patient instructed on the risk of potential vale while using the heat function. documented in this encounter Plan of Treatment Upcoming Encounters Date Type Department Care Team (Latest Contact Info) Description 11/17/2024 12:00 PM EST Office Visit Hematology/Oncol ogy [facility] [address] [place] [phone] Bette Ortiz CRNP [address] [place] [id number] 11/23/2024 3:00 PM EDT [facility] [place] [address] [place] [phone] Cassidy, Chair 1 Hem Onc [facility] [address] [place] [address] 01/13/2025 2:00 PM EDT Office Visit Gastroenterology , [facility] [address] [place] [address] Viridiana Ortiz CRNP [address] [place] [address] 03/29/2025 2:00 PM EDT Hospital Encounter ENDO OSS[facility], Endoscopy Room [facility] [address] [place] [phone] Lena Parsons MD [address] [place] [address] 03/29/2025 2:00 PM EDT - 03/29/2025 2:30 PM EDT Surgery ENDO [facility], Endoscopy Room [facility] [address] [place] [phone] Lena Parsons MD [address] [place] [address] ESOPHAGOGASTRODUODENOSCOPY (EGD), FLEXIBLE, TRANSORAL, DIAGNOSTIC 06/07/2025 3:00 PM EDT Office Visit Cardiology, [facility] [address] [place] [address] Elisa Jay PA-C [address] [place] [address] Scheduled Procedures Name Priority Associated Diagnoses Date/Ti me ESOPHAGOGASTRODUODENOSCOPY ( EGD), FLEXIBLE, TRANSORAL, DIAGNOSTIC 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) Secondary esophageal varices without bleeding (HCC) 03/29/2025 2:00 PM EDT Health Maintenance Due Date Last Done Comments CKD PHOS USE SMARTSET 55995 1967 DTap/Tdap Vaccines (1 - Tdap) 01/22/1968 Albumin/Creatinine Ratio 01/18/2010 009, 10/28/2006, 04/26/2006, Additional history exists Diabetic Foot Exam 03/18/2015 03/18/2014, 0 01/18/2009, 05/22/2007 HbA1c 11/26/2023 05/28/2023, 0809/2022, 09/18/2007, Additional history exists *COPD SEVERITY VERIFIED BY PFT 04/30/2024 COVID-19 Vaccine ( season) 2024 Diabetic Eye Exam 12/16/2024 12/17/2023, 07/19/2007 O2 ASSESSMENT COMPLETED IN PAST YEAR FOR COPD 03/17/2025 03/17/2024 GFR 04/28/2025 10/29/2024, 03/17, 10/14/2023, Additional history exists Depression Monitoring 09/24/2025 09/24/2024 CKD HGB USE SMARTSET 45708 10/29/202510/29, 10/29/2024, 04/13/2024, Additional history exists Colonoscopy 07/24/2026 07/24/2021, 110 04/2021, 09/15/2018, Additional history exists Pneumococcal Vaccine: 50+ Years Completed 05/29/2017, 05/24/2016, 03/29/2014 Hepatitis B Vaccine Completed 10/12/2019, 05/19/2019, 04/15/2019 RETIRED - COLONOSCOPY-EVERY 5 YRS AGES 18-100 Discontinued 07/24/2021, 07/24/2021, 09/15/2018, Additional history exists Zoster Vaccines Completed 09/11/2021, 04/16, 08/05/2012 Alpha-1 Antitrypsin Completed 02/08/2022, Influenza Vaccine (FLU shot) Completed 06/02/2024, 06/06/2023, 07/09/2022, Additional history exists HPV (Gardasil) Vaccine Aged Out No lo nger eligible based on patient's age to complete this topic MENINGOCOCCAL (MENACTRA/MENVEO) Aged Out No longer eligible based on patient's age to complete this topic Meningitis B Vaccine (Bexsero/Trumemba) Aged Out No longer eligible based on patient's age to complete this topic documented as of this encounter Medical Devices Not on filedocumented as of this encounter Visit Diagnoses Diagnosis Iron deficiency anemia due to chronic blood loss- Primary Iron deficiency anemia secondary to blood loss (chronic) 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) Secondary esophageal varices without bleeding (HCC) Esophageal varices without mention of bleeding in diseases classified elsewhere documented in this encounter Administered Medications Inactive Administered Medications - up to 3 most recent administrations Medication Order MAR Action Action Date Dose Rate Site Iron Sucrose (Venofer) 300 mg in NSS 250 mL ivpb 300 mg, IV Piggyback, ONCE, 1 dose, On Sat11/16/24 at 1600, Administer over 90 MinutesIndications:Iron deficiency anemia due to chronic blood loss Start Infusion 11/16/2024 2:34 PM EST 300 mg 180 mL/hr NSS infusion 500 mL, Intravenous, at 50 mL/hr, CONTINUOUS, Starting on Sat11/16/24 at 1530, Until Sat11/16/24 at 2019Indications:Iron deficiency anemia due to chronic blood loss Start Infusion 11/16/2024 2:32 PM EST 500 mL 50 mL/hr documented in this encounter Care Teams Director Of Development And Marketing Relationship Specialty Start Date End Date Donovan Ruvalcaba CRNP [address] [facility], [place] [address] PCP - General Nurse Practitioner 03/20/24 documented as of this encounter
--- OUTSIDE RECORDS SUMMARY | 2024-12-05 11:20 | External Medical Summary | Summary of Care ---
Author Name Unknown Organization [facility] Address [address] [place] [address] Phone [phone] Care Team Providers Care Mortgage Loan Originator Name Role Phone Donovan Ruvalcaba Primary Care Provide r Reason for Visit * Reason Comments Medication Administration venofer Encounter Details Date Type Department Care Team (Latest Contact Info) Description 11/30/2024 3:00 PM EDT Hem/Onc Treatment Hematology/Oncology Treatment, [place] [address] [place] [address] Cassidy, Chair 6 Hem Onc [facility] [address] [place] [address] Iron deficiency anemia due to chronic blood loss* Allergies Active Allergy Reactions Criticality Noted Date Comments Iodinated Contrast Media High 07/13/2021 MRI Other Reaction(s): Vomiting Quinolones Unknown 04/08/1998 ? yrs. ago? documented as of this encounter (statuses as of 12/01/2024) Medications ONE TOUCH LANCETS MISCIndications: DM type 2, [...] the morning. 180 Tablet 3 4 Active Additional Information Patient not taking.Reported on 11/17/2024 Nadolol 20 MG Oral Tablet (Corgard) Take 1 Tablet by mouth in the morning. 180 Tablet 2 5 Active Spironolactone 50 MG Oral Tablet (Aldactone) Take 1 Tablet by mouth in the morning. 180 Tablet 3 5 Active documented as of this encounter (statuses as of 12/01/2024) Active Problems Problem Noted Date Diagnosed Date [...] on left side 06/30/2014 Overview (07/09/2014): admitted [facility], cystoscopy, ureteroscopy, lithrotripsy, with ureteral [...] as of this encounter (statuses as of 12/01/2024) Resolved Problems Problem Noted Date Diagnosed Date [...] as of this encounter (statuses as of 12/01/2024) Immunizations Name Administration Dates Next Due Pneumococcal [...] Industry Job Start Date Job End Date [employer] Not on file Not on file Not on file documented as of this encounter Last Filed Vital Signs Vital Sign Reading Time Taken Comments Blood Pressure 115/63 11/30/2024 2:55 PM EDT Pulse 66 11/30/2024 2:55 PM EDT Temperature 36.2 C (97.1 F) 11/30/2024 2:55 PM ED T Respiratory Rate 18 11/30/2024 2:55 PM EDT Oxygen Saturation 93% 11/30/2024 2:55 PM EDT Inhaled Oxygen Concentration - - Weight - - Height - - Body Mass Index - - documented in this encounter Nursing Notes * Elodia Austin, HOWIE - 11/30/2024 4:40 PM EDT Infusion complete. Patient tolerated well. No complaints. IV site removed and dry dressing applied. Goals: Patient will remain free from injury. Possible barriers to meeting goals: ambulating with IV pole. Limited mobility, use of cane Stability of the patient: Moderately stable - low risk of patient condition declining or worsening Summary regarding today's goals: Met: Patient remained free from harm/injury during treatment. Patient left facility in stable condition. * Elodia Austin, HOWIE - 11/30/2024 2:55 PM EDT Chair 12, patient here for venofer infusion. Patient with no complaints. IV started without difficulty. Patient tolerated well. Safety and Risk for Injury Patient will remain free from injury. Ensure appropriate safety devices are available. Provide and maintain safe environment. Patient instructed on use of heat and [...] Department Care Team (Latest Contact Info) Description 12/29/2024 1:00 PM EDT Laboratory Laboratory [facility] [address] [place] [phone] Marquis Benjamin [facility] [address] [facility] [place] [address] 01/13/2025 2:00 PM EDT [facility] [address] [facility] [place] [address] Viridiana Ortiz CRNP [address] [place] [address] 03/29/2025 2:00 PM EDT Hospital Encounter ENDO OSS[facility], Endoscopy Room [facility] [address] [place] [phone] Lena Parsons MD [address] [place] [address] 03/29/2025 2:00 PM EDT - 03/29/2025 2:30 PM EDT Surgery ENDO [facility], Endoscopy Room [facility] [address] [place] [phone] Lena Parsons MD [address] [place] [address] ESOPHAGOGASTRODUODENOSCOPY (EGD), FLEXIBLE, TRANSORAL, DIAGNOSTIC 05/13/2025 1:00 PM EDT Laboratory Laboratory [facility] [address] [place], [place] [phone] Cassidy, Lab [facility] [place] [address] [place] [address] 05/20/2025 3:30 PM EDT Office Visit Hematology/Onco logy [facility] [address] [place] [phone] Bette Ortiz CRNP [address] [facility] [place] [id number] 06/07/2025 3:00 PM EDT Office Visit Cardiology, [facility] [address] [facility] [place] [address] Elisa Jay PA-C [address] [place] [id number] Scheduled Procedures Name Priority Associated Diagnoses Date/Ti me ESOPHAGOGASTRODUODENOSCOPY ( EGD), FLEXIBLE, TRANSORAL, DIAGNOSTIC 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) Secondary esophageal varices without bleeding (HCC) 03/29/2025 2:00 PM EDT Health Maintenance Due Date Last Done Comments CKD PHOS USE SMARTSET 17344 1967 DTap/Tdap Vaccines (1 - Tdap) 01/22/1968 [...] Monitoring 09/24/2025 09/24/2024 CKD HGB USE SMARTSET 90223 10/29/202510/29, 10/29/2024, 04/13/2024, Additional history exists Colonoscopy 07/24/2026 07/24/2021, 04/2021, [...] mg, IV Piggyback, ONCE, 1 dose, On 11/30/24 at 1630, Administer over 90 MinutesIndications:Iron deficiency anemia due to chronic blood loss Start Infusion 11/30/2024 2:53 PM EDT 300 mg 180 mL/hr NSS infusion 500 mL, Intravenous, at 50 mL/hr, CONTINUOUS, Starting on Sat11/30/24 at 1600, Until Sat11/30/24 at 2041Indications:Iron deficiency anemia due to chronic blood loss Start Infusion 11/30/2024 2:52 PM EDT 500 mL 50 mL/hr documented in this encounter Care Teams Mortgage Loan Originator Relationship Specialty Start Date End Date Donovan Ruvalcaba CRNP [address] [place] [address] PCP - General Nurse Practitioner 03/20/24 documented as of this encounter
--- OUTSIDE RECORDS SUMMARY | 2024-12-05 11:20 | External Medical Summary | Summary of Care ---
Author Name Unknown Organization [facility] Address [address] [place] [place] [place] [address] Phone [phone] Care Team Providers Care Supervisor Steno Pool Name Role Phone Donovan Ruvalcaba Primary Care Provide r Reason for Visit * Reason Comments IV Therapy Venofer 09/18 Encounter Details Date Type Department Care Team (Latest Contact Info) Description 11/09/2024 1:30 PM EST Hem/Onc Treatment Hematology/Oncology Treatment, [place] [address] [place] [address] Cassidy, Chair 8 Hem Onc [facility] [address] [facility] [place] [address] Iron deficiency anemia due to chronic blood loss* Allergies Active Allergy Reactions Criticality Noted Date Comments Iodinated Contrast Media High 07/13/2021 MRI Other Reaction(s): Vomiting Quinolones Unknown 04/08/1998 ? yrs. ago? documented as of this encounter (statuses as of 11/23/2024) Medications ONE TOUCH LANCETS MISCIndications:D M type 2, not at goal ([facility]) as directed 100 5 2 Active ONE TOUCH STRP VIIndications:DM type 2, not at goal ([facility]) once daily 50 5 7 Active ASPIRIN [...] as of this encounter (statuses as of 11/23/2024) Active Problems Problem Noted Date Diagnosed Date [...] on left side 06/30/2014 Overview (07/09/2014): admitted [facility], cystoscopy, ureteroscopy, lithrotripsy, with [...] as of this encounter (statuses as of 11/23/2024) Resolved Problems Problem Noted Date Diagnosed Date [...] as of this encounter (statuses as of 11/23/2024) Immunizations Name Administration Dates Next Due Pneumococcal [...] Job Start Date Job End Date [employer] Not on file Not on file Not on file documented as of this encounter Last Filed Vital Signs Vital Sign Reading Time Taken Comments Blood Pressure 133/67 11/09/2024 1:26 PM EST Pulse 74 11/09/2024 1:26 PM EST Temperature 36.5 C (97.7 F) 11/09/2024 1:26 PM ES T Respiratory Rate 16 11/09/2024 1:26 PM EST Oxygen Saturation 92% 11/09/2024 1:26 PM EST Inhaled Oxygen Concentration - - Weight - - Height - - Body Mass Index - - documented in this encounter Nursing Notes * Carolina Canales LPN - 11/09/2024 3:13 PM EST 1500: Pt tolerated Venofer infusion well. PIV removed intact. Pt to return in one week. Discharged in stable condition. * Sheree Mccoy LPN - 11/09/2024 1:33 PM EST Patient arrived Chair 7 for IV therapy Venofer. Vital signs are stable. IV access successful at theright metacarpal vein; positive blood return; IV line flushed with ease; IV fluids connected and infusing. Call lawson within reach. Patient instructed on use of heat and [...] Department Care Team (Latest Contact Info) Description 11/23/2024 3:00 PM EDT Hem/Onc Treatment Hematology/Onco logy [facility] [address] [place] [phone] Cassidy, Chair 1 Hem Onc [place] [address] [place] [address] 11/24/2024 2:30 PM EDT Imaging Radiology [facility] [address] [place] [phone] 12/29/2024 1:00 PM EDT Laboratory Laboratory [facility] [address] [facility] [place] [phone] [place], Lab Scenery [address] [place] [address] 01/13/2025 2:00 PM EDT Office Visit Gastroenterolog y, [facility] [address] [place] [address] Viridiana Ortiz CRNP [address] [place] [address] 03/29/2025 2:00 PM EDT Hospital Encounter ENDO [facility], Endoscopy Room [facility] [address] [place] [phone] Lena Parsons MD [address] [place] [address] 03/29/2025 2:00 PM EDT - 03/29/2025 2:30 PM EDT Surgery ENDO [facility], Endoscopy Room [facility] [address] [place] [phone] Lena Parsons MD [address] [place] [address] ESOPHAGOGASTRODUODENOSCOPY (EGD), FLEXIBLE, TRANSORAL, DIAGNOSTIC 05/13/2025 1:00 PM EDT Laboratory Laboratory [facility] [address] [place] [phone] [facility] [address] [place] [address] 05/20/2025 3:30 PM EDT Office Visit Hematology/Onco logy [facility] [address] [place] [phone] Bette Ortiz CRNP [address] [place] [address] 06/07/2025 3:00 PM EDT Office Visit Cardiology, [facility] [address] [facility] [place] [address] Elisa Jay PA-C [address] [place] [phone] Scheduled Procedures Name Priority Associated Diagnoses Date/Ti me ESOPHAGOGASTRODUODENOSCOPY ( EGD), FLEXIBLE, TRANSORAL, DIAGNOSTIC 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) Secondary esophageal varices without bleeding (HCC) 03/29/2025 2:00 PM EDT Health Maintenance Due Date Last Done Comments CKD PHOS USE SMARTSET 87262 1967 DTap/Tdap Vaccines (1 - Tdap) 01/22/1968 [...] Monitoring 09/24/2025 09/24/2024 CKD HGB USE SMARTSET 91810 10/29/202510/29, 10/29/2024, 04/13/2024, Additional history exists Colonoscopy [...] mg, IV Piggyback, ONCE, 1 dose, On Sat11/09/24 at 1445, Administer over 90 MinutesIndications:Iron deficiency anemia due to chronic blood loss Start Infusion 11/09/2024 1:23 PM EST 300 mg 180 mL/hr NSS infusion 500 mL, Intravenous, at 50 mL/hr, CONTINUOUS, Starting on Sat11/09/24 at 1415, Until Sat11/09/24 at 1920Indications:Iron deficiency anemia due to chronic blood loss Start Infusion 11/09/2024 1:21 PM EST 500 mL 50 mL/hr documented in this encounter Care Teams Supervisor Steno Pool Relationship Specialty Start Date End Date Donovan Ruvalcaba CRNP [address] [place] [address] PCP - General Nurse Practitioner 03/20/24 documented as of this encounter
--- OUTSIDE RECORDS SUMMARY | 2024-12-05 11:20 | External Medical Summary | Summary of Care ---
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 [employer] Name Role Phone Donovan Ruvalcaba Primary Care Provide r Reason for Visit * Reason Comments IV Therapy Venofer Encounter Details Date Type Department Care Team (Latest Contact Info) Description 11/23/2024 3:00 PM EDT Hem/Onc Treatment Hematology/Oncology Treatment, [place] [address] [place] [address] Cassidy, Chair 1 Hem Onc [facility] [address] [place] [address] Iron deficiency anemia due to chronic blood loss* Allergies Active Allergy Reactions Criticality Noted Date Comments Iodinated Contrast Media High 07/13/2021 MRI Other Reaction(s): Vomiting Quinolones Unknown 04/08/1998 ? yrs. ago? documented as of this encounter (statuses as of 11/24/2024) Medications ONE TOUCH LANCETS MISCIndications: DM type [...] as of this encounter (statuses as of 11/24/2024) Active Problems Problem Noted Date Diagnosed Date [...] on left side 06/30/2014 Overview (07/09/2014): admitted [facility], cystoscopy, [...] as of this encounter (statuses as of 11/24/2024) Resolved Problems Problem Noted Date Diagnosed Date [...] as of this encounter (statuses as of 11/24/2024) Immunizations Name Administration Dates Next Due Pneumococcal [...] Industry Job Start Date Job End Date [employer] Not on file Not on file Not on file documented as of this encounter Last Filed Vital Signs Vital Sign Reading Time Taken Comments Blood Pressure 124/65 11/23/2024 3:08 PM EDT Pulse 63 11/23/2024 3:08 PM EDT Temperature 36.8 C (98.2 F) 11/23/2024 3:08 PM ED T Respiratory Rate 16 11/23/2024 3:08 PM EDT Oxygen Saturation 97% 11/23/2024 3:08 PM EDT Inhaled Oxygen Concentration - - Weight - - Height - - Body Mass Index - - documented in this encounter Nursing Notes * Samanta Penaloza RN - 11/24/2024 8:32 AM EDT Patient instructed on use of heat and massage functions where applicable. Patient shown how to operate the heat function of the chair and to alert nursing staff if the chair feels too warm. Patient instructed on the risk of potential vale while using the heat function. Goals: Patient will remain free from injury. Possible barriers to meeting goals: ambulating with IV pole Stability of the patient: Moderately stable - low risk of patient condition declining or worsening Summary regarding today's goals: Met: pt remained free of harm today Patient tolerated treatment well without any acute issues or problems. Patient left facility in stable condition and denied any further needs. * Shannon Frazier RN - 11/23/2024 4:08 PM EDT Chair 8, Venofer. Pt presents to clinic using a cane for ambulation; pt moves very slowly and appears unsteady at times. Pt reported he doesn't have "any more energy" since starting iron infusions. Reassured pt that it may take a few weeks to feel a benefit from the treatment. Pt has no other concerns at this time. PIV established in L wrist; Venofer infusing. Safety and Risk for Injury Patient will remain free from injury. Ensure appropriate safety devices are available. Provide and maintain safe environment. documented in this encounter Plan of Treatment Upcoming Encounters Date Type Department Care Team (Latest Contact Info) Description 11/24/2024 2:30 PM EDT Imaging Radiology [facility] [address] [place] [phone] 11/30/2024 3:00 PM EDT Hem/Onc Treatment Hematology/Onco logy [facility], [place] [address] [place] [phone] Cassidy, Chair 6 Hem Onc [place] [address] [place] [address] 12/29/2024 1:00 PM EDT Laboratory Laboratory [facility] [place] [address] [place] [phone] Cassidy, Lab Scenery [address] [place] [address] 01/13/2025 2:00 PM EDT Office Visit Gastroenterolog y, [facility] [address] [place] [address] Viridiana Ortiz CRNP [address] [place] [address] 03/29/2025 2:00 PM EDT Hospital Encounter ENDO [facility], Endoscopy Room [facility] [address] [place] [phone] Lena Parsons MD [address] [place] [id number] 03/29/2025 2:00 PM EDT - 03/29/2025 2:30 PM EDT Surgery ENDO [facility], Endoscopy Room [facility] [address] [facility] [place] [phone] Lena Parsons MD [address] [place] [address] ESOPHAGOGASTRODUODENOSCOPY (EGD), FLEXIBLE, TRANSORAL, DIAGNOSTIC 05/13/2025 1:00 PM EDT Laboratory Laboratory [facility] [address] [place] [phone] [facility] [address] [place] [address] 05/20/2025 3:30 PM EDT Office Visit Hematology/Onco logy [facility] [address] [place] [phone] Bette Ortiz CRNP [address] [place] [address] 06/07/2025 3:00 PM EDT Office Visit Cardiology, [facility] [address] [facility] [place] [address] Elisa Jay PA-C [address] [place] [address] Scheduled Procedures Name Priority Associated Diagnoses Date/Ti me ESOPHAGOGASTRODUODENOSCOPY ( EGD), FLEXIBLE, TRANSORAL, DIAGNOSTIC 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) Secondary esophageal varices without bleeding (HCC) 03/29/2025 2:00 PM EDT Health Maintenance Due Date Last Done Comments CKD PHOS USE SMARTSET 86054 1967 DTap/Tdap Vaccines (1 - Tdap) 01/22/1968 Albumin/Creatinine Ratio 01/18/2010 009, 10/28/2006, 04/26/2006, Additional history exists Diabetic Foot Exam 03/18/2015 03/18/2014, 0 01/18/2009, 05/22/2007 HbA1c 11/26/2023 05/28/2023, 0809/2022, 09/18/2007, Additional history exists *COPD SEVERITY VERIFIED BY PFT 04/30/2024 COVID-19 Vaccine (2023- season) 2024 Diabetic Eye Exam 12/16/2024 12/17/2023, 07/19/2007 O2 ASSESSMENT COMPLETED IN PAST YEAR FOR COPD 03/17/2025 03/17/2024 GFR 04/28/2025 10/29/2024, 03/17, 10/14/2023, Additional history exists Depression Monitoring 09/24/2025 09/24/2024 CKD HGB USE SMARTSET 51808 10/29/202510/29, 10/29/2024, 04/13/2024, Additional history exists Colonoscopy [...] elsewhere documented in this encounter Administered Medications Active Administered Medications - up to 3 most recent administrations Medication Order MAR Action Action Date Dose Rate Site diphenhydrAMINE (Benadryl) inj 50 mg 50 mg, IV Push, ONCE PRN Other, Hypersensitivity Reaction, Starting on Sat11/23/24 at 1515, Until Sat11/24/24 at 1514, For 24 hoursIndications:Iron deficiency anemia due to chronic blood loss EPINEPHrine 1 MG/ML inj 0.3 mg 0.3 mg, Intramuscular, ONCE PRN Other, Hypersensitivity Reaction or Anaphylaxis, Starting on Sat11/23/24 at 1515, Until Sat11/24/24 at 1514, For 24 hoursIndications:Iron deficiency anemia due to chronic blood loss hEParin 100 UNIT/ML Lock Flush inj 500 Units 500 Units (5 mL), IV Lock, PRN Other, IV Flush, Starting on Sat11/23/24 at 1515, Until Sat11/24/24 at 1514, For 24 hours, Do not flush if lock, PICC, or central line not in place; IV infusing or unable to flush.Indications:Iron deficiency anemia due to chronic blood loss Hydrocortisone Sod Suc (PF) (Solu-Cortef) inj 100 mg 100 mg, IV Push, ONCE PRN Other, Hypersensitivity Reaction, Starting on Sat11/23/24 at 1515, Until Sat11/24/24 at 1514, For 24 hoursIndications:Iron deficiency anemia due to chronic blood loss oxygen GAS Inhalation, OXYGEN, First dose on Sat11/23/24 at 1600, Until Discontinued, Device/Managed by: Low Flow Device, Goal SPO2 (%): 91-95, Starting Device: Nasal Cannula, Initial Flow Rate (LPM): 2, Lowest Support: Nasal Cannula: Flow 0-6 LPM. Titrate up/down by 1 LPM., Higher Support: Non-Rebreather (NRB) Mask: Minimum of 10 LPM. Titrate to maintain bag inflation., Titration Interval: Q2 minutes and as needed., Notify Provider: For sudden DECREASE in resting SPO2 to less than 85% and when escalating delivery device., Wean patient off Oxygen when the oxygen saturation is greater than or equal to 93%Indications:Iron deficiency anemia due to chronic blood loss sodium chloride 0.9 % flush central line 10 mL 10 mL, IV Push, PRN Other, IV Flush, Starting on Sat11/23/24 at 1515, Until Sat11/24/24 at 1514, For 24 hours, Do not flush if lock, PICC, or central line not in place; IV infusing or unable to flush.Indications:Iron deficiency anemia due to chronic blood loss Inactive Administered Medications - up to 3 most recent administrations Medication Order MAR Action Action Date Dose Rate Site Iron Sucrose (Venofer) 300 mg in NSS 250 mL ivpb 300 mg, IV Piggyback, ONCE, 1 dose, On Sat11/23/24 at 1700, Administer over 90 MinutesIndications:Iron deficiency anemia due to chronic blood loss Start Infusion 11/23/2024 3:22 PM EDT 300 mg 180 mL/hr NSS infusion 500 mL, Intravenous, at 50 mL/hr, CONTINUOUS, Starting on Sat11/23/24 at 1630, Until Sat11/24/24 at 0229Indications:Iron deficiency anemia due to chronic blood loss Start Infusion 11/23/2024 3:17 PM EDT 500 mL 50 mL/hr documented in this encounter Care Teams Metal Sprayer Protective Coating Relationship Specialty Start Date End Date Donovan Ruvalcaba CRNP [address] [place] [address] PCP - General Nurse Practitioner 03/20/24 documented as of this encounter
--- OUTSIDE RECORDS SUMMARY | 2024-12-05 11:20 | External Medical Summary | Summary of Care ---
Author Name Unknown Organization [facility] Address [address] [facility] [place] [address] Phone [phone] Care Team Providers Care Assembler [employer] Name Role Phone Donovan Ruvalcaba Primary Care Provide r Reason for Visit * Reason Comments Follow Up Encounter Details Date Type Department Care Team (Late st Contact Info) Description 11/17/2024 12:00 PM EST Office Visit Hematology/Oncology [facility] [place] [address] [facility] [address] [phone] Bette Ortiz CRNP [address] [facility] [place] [address] Encounter for follow-up examination after completed treatment for malignant neoplasm*; History of colon cancer, stage I; Iron deficiency anemia due to chronic blood loss Allergies Active Allergy Reactions Criticality Noted Date Comments Iodinated Contrast Media High 07/13/2021 MRI Other Reaction(s): Vomiting Quinolones Unknown 04/08/1998 ? yrs. ago? documented as of this encounter (statuses as of 11/29/2024) Medications ONE TOUCH LANCETS MISCIndications: DM type [...] as of this encounter (statuses as of 11/29/2024) Active Problems Problem Noted Date Diagnosed Date [...] (04/28/2024): Jun 13, 2023 Entered By: RAAD OTRIZ Comment: due to GARCES per GI Vertigo [...] on left side 06/30/2014 Overview (07/09/2014): admitted [facility], cystoscopy, ureteroscopy, lithrotripsy, with ureteral stent [...] as of this encounter (statuses as of 11/29/2024) Resolved Problems Problem Noted Date Diagnosed Date [...] as of this encounter (statuses as of 11/29/2024) Immunizations Name Administration Dates Next Due Pneumococcal [...] Industry Job Start Date Job End Date [employer] Not on file Not on file Not on file documented as of this encounter Last Filed Vital Signs Vital Sign Reading Time Taken Comments Blood Pressure 138/71 11/17/2024 11:51 AM EST Pulse 86 11/17/2024 11:51 AM EST Temperature 36.7 C (98 F) 11/17/2024 11:51 AM EST Respiratory Rate - - Oxygen Saturation 90% 11/17/2024 11:51 AM EST Inhaled Oxygen Concentration - - Weight 112.5 kg (248 lb) 11/17/2024 11:51 AM EST Height - - Body Mass Index 36.62 10/29/2024 12:41 PM EST documented in this encounter Progress Notes * Bette Ortiz CRNP - 11/17/2024 12:00 PM EST Hematology/Oncology Outpatient Clinic note Jayme Benjamin [address] [place] [address] Name: Simone Boykin Date: 11/17/2024 CHIEF COMPLAINT: Simone Boykin is a 74 year old male patient of Dr. López Reema here today for f/u visit today. From Patient chart confirmed with patient. HEMATOLOGY/ONCOLOGY DIAGNOSIS: Colon cancer Iron deficiency anemia GARCES cirrhosis Portal hypertensive gastropathy and grade 1 EV Cancer Staging pT2pN0, stage I disease DATE OF DIAGNOSIS: 07/24/21 TREATMENT HISTORY: Laparoscopic assisted right colon resection and umbilical hernia repair on 11/01/2021 CURRENT TREATMENT: IV Venofer 300 mg weekly x 4 infusions - currently received 2/4 scheduled doses Ferrous sulfate one tablet daily ONCOLOGY HISTORY: Patient with past medical history [...] outlined above. Currently here for f/u visittoday. Is not taking his Lasix. States he has too much going on and just hasn't been taking it. Is worried about the swelling in his abdomen and legs. Eats a lot of salt in his diet. Continues to decline colonoscopy. Occasionally has black stools. Has been having more loose stools over the last sixmonths. Going about three times a day. Eats quite a bit of fast food. Takes iron once a day. Is tolerating the iron infusions well. Past Medical History: Diagnosis Date Acute cholecystitis Adenocarcinoma of colon (HCC) Anemia BMI 33.0-33.9,adult Calculus of kidney Calculus of kidney Chronic renal insufficiency 10/28/2006 26/1.4 GFR 55.5 Colon polyps COPD (chronic obstructive pulmonary disease) ([facility]) Corns and callosities Depressive disorder, not elsewhere classified DM type 2, not at goal ([facility]) 04/20/2003 Edema Fatty liver Hyperlipidemia Hypertension Hypogonadism male Keratoconus Kidney disease, chronic, stage III (GFR 30-59 ml/min) ([facility]) Left knee pain Mixed dyslipidemia Panic disorder Panic disorder Panic disorder (episodic paroxysmal anxiety) Polyneuropathy in diabetes(357.2) Renal colic on left side 06/30/[address] [facility], cystoscopy, ureteroscopy, lithrotripsy, with ureteral stent Renal colic on right side 03/14/2014 [facility] ER had distal R ureter stones, largest 11 mm Tinea pedis Tinea unguium Past Surgical History: Procedure Laterality Date BIOPSY OF PROSTATE 11/2007 benign, Dr. Rhodes CALCANEOUS FX W/FIXATION 1991 COLONOSCOPY, DIAGNOSTIC (RECTUM) 09/15/2018 adenomatous & hyperplastic polyps, diverticulosis, repeat 5 yrs/COLONOSCOPY FLEXIBLE PROXIMAL DIAGNOSTIC performed by Cheyanne Peña DO at END[facility]COPY [facility] COLONOSCOPY, DIAGNOSTIC (RECTUM) 07/24/2021 mulitple polyps, rule out malignancy/biopsies show adenocarcinoma, multiple tubular adenoma and tubulovillous adenoma/COLONOSCOPY FLEXIBLE PROXIMAL DIAGNOSTIC performed by Cheyanne ePña DO at ENDOSCOPY [facility] COLORECTAL CANCER SCREEN; NOT AT RISK 06/24/2007 CT ABDOMEN/PELVIS 03/14/2014 liver 21 cm heart enlarged, obstruction calculus in proximal right ureter, at least 4 obstructing calculi in distal right ureter, mod hydronephrosis CYSTOSCOPY/INSERTION OF STENT 07/01/2014 [facility], for left renal stone EGD, FLEXIBLE, DIAGNOSTIC 11/14/2022 esophageal varices / ESOPHAGOGASTRODUODENOSCOPY (EGD), FLEXIBLE, TRANSORAL, DIAGNOSTIC performed byMiguel Burkett MD at ENDOSCOPY [facility] EGD, FLEXIBLE, DIAGNOSTIC 02/19/2023 mild portal gastropathy, eso varices, repeat 1 mo / ESOPHAGOGASTRODUODENOSCOPY (EGD), FLEXIBLE, TRANSORAL, DIAGNOSTIC performed by Sanjuana Baker MD at [facility]OSCOPY [facility] EGD, FLEXIBLE, DIAGNOSTIC 03/17/2024 grade I esophageal varices/portal hypertensive gastropathy/recall 6 months/ESOPHAGOGASTRODUODENOSCOPY (EGD), FLEXIBLE, TRANSORAL, DIAGNOSTIC performed by Miguel Burkett MD at ENDOSCOPY [facility] EGD, W/ENDOSCOPIC US 11/14/2022 fatty liver disease / ESOPHAGOGASTRODUODENOSCOPY (EGD), FLEXIBLE, TRANSORAL, ENDOSCOPIC ULTRASOUND performed by Miguel Burkett MD at [facility]OSCOPY [facility] KNEE ARTHROSCOPY/MENISCUS REPAIR 07/2003 bilateral REMOVE GALLBLADDER 1994 laparoscopic Social History Socioeconomic History Marital status: Spouse name: Not on file Number of children: Not on file Years of education: Not on file Highest education level: Not on file Occupational History Occupation: [employer] Tobacco Use Smoking status: Former Current packs/day: 0.00 Average packs/day: 1 pack/day for 15.0 years (15.0 ttl pk-yrs) Types: Cigarettes Start date: 09/16/1963 Quit date: 09/16/1978 Years since quittin.2 Smokeless tobacco: Never Vaping Use Vaping status: Never Used Substance and Sexual Activity Alcohol use: No Drug use: No Sexual activity: Yes Partners: Female Other Topics Concern Not on file Social History Narrative Not on file Social Needs Financial Resource Strain: Low Risk (09/24/2024) Financial Resource Strain Do you have any trouble paying for your medications, or do you think you might in the future? (Adult - for ages 18 years and over): No Does your family have trouble paying for medicine? (Household - for ages 0-17 years): Not on file Food Insecurity: No Food Insecurity (09/24/2024) Food Insecurity Worried About Running Out of Food in the Last Year: Never true Ran Out of Food in the Last Year: Never true Do you need food for this week? (Adult - for ages 18 years and over): No Transportation Needs: No Transportation Needs (09/24/2024) Transportation Needs Do you have trouble getting a ride to medical visits or work? (Adult - for ages 18 years and over):Not on file Does your family have a hard time getting a ride to doctors visits? (Household - for ages 0-17 years): Not on file Has lack of transportation kept you from medical appointments, meetings, work, or from getting things needed for daily living? Check all that apply. (Adult - for ages 18 years and over): No Do you (or your family) have trouble finding or paying for a ride (transportation)? (Household - for ages 0-17 years): Not on file Social Connections: Socially Integrated (09/24/2024) Social Connections How often do you feel lonely or isolated from those around you? (Adult - for ages 18 years and over): Rarely Housing Stability: Low Risk (09/24/2024) Housing Stability Do you currently live in a jail or have no steady place to sleep at night? (Adult - for ages 18 years and over): No Do you think you are at risk of becoming homeless? (Adult - for ages 18 years and over): Not on file Does your family worry about paying for your home or becoming homeless? (Household - for ages 0-17 years): Not on file Are you homeless or worried that you might be in the future? (Adult - for ages 18 years and over): No Are you (or your family) homeless or worried that you might be in the future? (Household - for ages0-17 years): Not on file Review of patient's allergies indicates: Allergen Reactions Iodinated Contrast Media MRI Other Reaction(s): Vomiting Quinolones Unknown ? yrs. ago? Current Outpatient Medications Medication Sig Dispense Refill ONE TOUCH LANCETS MISC as directed 100 5 ONE TOUCH STRP once daily 50 5 ASPIRIN 81 MG PO TABS daily (Patient not taking: Reported on 10/29/2024) allopurinol (ZYLOPRIM) 100 MG Tablet Take 1 [...] 1 Tablet by mouth in the morning. hydrOXYzine HCl 10 MG Oral Tablet (Atarax) Take 1 Tablet by mouth at bedtime as needed for Itching or Other (sleep). (Patient not taking: Reported on 10/29/2024) Albuterol Sulfate HFA 108 (90 Base) MCG/ACT Inhalation Aerosol Solution Inhale 2 Puffs by mouth every 6 hours as needed. Vitamin C 500 MG Oral Tablet Chewable Take 0.5 Tablets by mouth in the morning. Pantoprazole Sodium 40 MG Oral Tablet Delayed Release (Protonix) Take 1 Tablet by mouth in the morning. 90 Tablet 3 Alfuzosin HCl ER 10 MG Oral Tablet [...] under the skin in the morning. Pen. Furosemide 20 MG Oral Tablet (Lasix) Take 2 Tablets by mouth in the morning. 180 Tablet 3 Nadolol 20 MG Oral Tablet (Corgard) Take 1 Tablet by mouth in the morning. 180 Tablet 2 Spironolactone 50 MG Oral Tablet (Aldactone) Take 1 Tablet by mouth in the morning. 180 Tablet 3 No current facility-administered medications for this visit. REVIEW OF SYSTEMS: See HPI - otherwise negative OBJECTIVE: Filed Vitals: 11/17/24 1151 BP: 138/71 Pulse: 86 Temp: 36.7 C (98 F) TempSrc: Tympanic SpO2: 90% Weight: 112.5 kg (248 lb) Wt Readings from Last 5 Encounters: 11/17/24 112.5 kg (248 lb) 10/29/24 106.4 kg (234 lb 8 oz) 05/21/24 95.7 kg (211 lb) 04/24/24 98.5 kg (217 lb 1.6 oz) 04/13/24 97.9 kg (215 lb 14.4 oz) PHYSICAL EXAM: ECOG: Performance Status 1 = [...] orders placed or performed in visit on 10/29/24 COMPREHENSIVE METABOLIC PANEL Result Value Ref Range BUN 14 6 - 20 mg/dL CREATININE 1.2 0.6 - 1.2 mg/dL EGFR 62 >=60 mL/min SODIUM 141 135 - 146 mmol/L POTASSIUM 4.0 3.5 - 5.1 mmol/L CHLORIDE 104 98 - 107 mmol/L CO2 29 22 - 32 mmol/L ANION GAP 8 7 - 15 mmol/L GLUCOSE 75 70 - 120 mg/dL Albumin 3.2 (L) 3.8 - 5.0 g/dL AST 55 (H) 10 - 50 U/L Alkaline Phosphatase 223 (H) 35 - 130 U/L Bilirubin, Total 1.7 (H) <=1.2 mg/dL CALCIUM 8.6 8.4 - 10.2 mg/dL Protein 5.9 (L) 6.0 - 8.3 g/dL ALT 33 10 - 50 U/L IRON SCREEN, INCLUDING TIBC Result Value Ref Range Iron 18 (L) 45 - 176 ug/dL Iron Binding Capacity 420 250 - 425 ug/dL Transferrin Saturation Percent 4 (L) 15 - 55 % FERRITIN Result Value Ref Range Ferritin 44 30 - 400 ng/mL CEA Result Value Ref Range CEA 3.2 <=5.2 ng/mL PT INR Result Value Ref Range Prothrombin Time 15.3 (H) 11.6 - 15.2 seconds INR 1.2 0.8 - 1.2 CBC Result Value Ref Range WBC 4.40 4.00 - 10.80 K/uL RBC 3.45 4.50 - 5.25 M/uL HGB 8.7 (L) 14.0 - 16.8 g/dL HCT 29.4 (L) 40.0 - 48.4 % MCV 85.2 82.0 - 99.5 fL MCH 25.2 27.0 - 34.0 pg MCHC 29.6 32.0 - 36.0 g/dL RDW 21.1 11.5 - 15.5 % PLT 117 (L) 140 - 400 K/uL MPV 8.7 6.6 - 11.1 fL DIFFERENTIAL, AUTOMATED Result Value Ref Range WBC 4.40 4.00 - 10.80 K/uL Neutrophils % 73.0 40.0 - 75.0 % Lymphocytes % 15.7 (L) 18.0 - 42.0 % Monocytes % 7.0 1.0 - 11.0 % Eosinophils % 3.4 0.0 - 6.0 % Basophils % 0.9 0.0 - 2.0 % Absolute Neutrophils 3.21 1.80 - 7.70 K/uL Absolute Lymphocytes 0.69 (L) 1.00 - 4.80 K/ul Absolute Monocytes 0.31 0.00 - 1.10 K/uL Absolute Eosinophils 0.15 0.00 - 0.70 K/uL Absolute Basophils 0.04 0.00 - 0.20 K/uL DIFFERENTIAL, TECHNOLOGIST REVIEW Result Value Ref Range nRBCs Schistocytes Few (A) None Seen IMPRESSION/PLAN: History of stage I Colon Cancer Iron deficiency anemia S/P laparoscopic assisted right colon resection and umbilical hernia repair on 11/01/2021 Lab results reviewed: Hgb has declined to 8.7 Iron deficiency present with ferritin 44 and TSAT 4% Ast 55, alk phos 223, total bilirubin 1.7 - overall stable CEA WNL Patient adamantly refuses any further colonoscopies despite education Patient currently completing course of IV Venofer 300 mg weekly x 4 infusions - currently received 2/4 scheduled doses thus far. Repeat CBCd, iron screen and ferritin one month after last infusion and every three months. Following with GI for GARCES cirrhosis. Scheduled for next EGD for EV surveillance in March. Encouraged patient to schedule ordered abdominal U/S. Continue ferrous sulfate one tablet daily. Tolerating well Continue clinical observation. RTC in 6 months with provider with cbc/diff, cmp, iron screen, ferritin and cea CHEPE Solis documented in this encounter Nursing Notes * Carolina Romo MED ASSIST - 11/17/2024 11:53 AM EST Patient identifed by name and birthdate Do you have any concerns about pain management for today's visit? Yes. Patient instructed to discuss pain concerns with provider during the visit today Living Will or Advance Directive for Health Care as noted on the problem list. [employer] is a way you can talk to your provider on line through e-mail. Would you like to sign up? I can activate it for you? NO Filed Vitals: 11/17/24 1151 BP: 138/71 Pulse: 86 Temp: 36.7 C (98 F) TempSrc: Tympanic SpO2: 90% Weight: 112.5 kg (248 lb) Patient was instructed to not get up [...] Description 11/30/2024 3:00 PM EDT Hem/Onc Treatment Hematology/Onco logy Treatment, [place] [address] [place] [phone] Cassidy, Chair 6 Hem Onc [address] [address] 12/29/2024 1:00 PM EDT Laboratory Laboratory [facility] [address] [place] [phone] Marquis Benjaminry [address] [place], [place] [address] 01/13/2025 2:00 PM EDT Office Visit Gastroenterolog y, [facility] [address] [place] [address] Viridiana Ortiz CRNP [address] [facility] [place] [address] 03/29/2025 2:00 PM EDT Hospital Encounter ENDO [facility], Endoscopy Room [facility] [address] [facility], [place] [phone] Lena Parsons MD [address] [facility] [place] [id number] 03/29/2025 2:00 PM EDT - 03/29/2025 2:30 PM EDT Surgery ENDO [facility], Endoscopy Room [facility] [address] [facility], [place] [phone] Lena Parsons MD [address] [facility] [place] [address] ESOPHAGOGASTRODUODENOSCOPY (EGD), FLEXIBLE, TRANSORAL, DIAGNOSTIC 05/13/2025 1:00 PM EDT Laboratory Laboratory [address] [place] [address] [place] [phone] Marquis Benjaminry [address] [facility] [place] [address] 05/20/2025 3:30 PM EDT Office Visit Hematology/Onco logy Phong Cassidy [place] [address] [place] [phone] Bette Ortiz CRNP [address] [place] [address] 06/07/2025 3:00 PM EDT Office Visit Cardiology, [facility] [address] [place] [address] Elisa Jay PA-C [address] [place] [address] Scheduled Orders Name Type Priority Associated Diagnoses Orde r Schedule CBC WITH WBC DIFFERENTIAL Lab STAT Encounter for follow-up examination after completed treatment for malignant neoplasm History of colon cancer, stage I Iron deficiency anemia due to chronic blood loss Every 3 Months for 4 Occurrences starting 11/29/2024 until 12/17/2025 IRON SCREEN, INCLUDING TIBC Lab STAT Encounter for follow-up examination after completed treatment for malignant neoplasm History of colon cancer, stage I Iron deficiency anemia due to chronic blood loss Every 3 Months for 4 Occurrences starting 11/29/2024 until 12/17/2025 FERRITIN Lab STAT Encounter for follow-up examination after completed treatment for malignant neoplasm History of colon cancer, stage I Iron deficiency anemia due to chronic blood loss Every 3 Months for 4 Occurrences starting 11/29/2024 until 12/17/2025 Scheduled Procedures Name Priority Associated Diagnoses Date/Ti me ESOPHAGOGASTRODUODENOSCOPY ( EGD), FLEXIBLE, TRANSORAL, DIAGNOSTIC 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) Secondary esophageal varices without bleeding (HCC) 03/29/2025 2:00 PM EDT Health Maintenance Due Date Last Done Comments CKD PHOS USE SMARTSET 85990 1967 DTap/Tdap Vaccines (1 - Tdap) 01/22/1968 [...] Monitoring 09/24/2025 09/24/2024 CKD HGB USE SMARTSET 78518 10/29/202510/29, 10/29/2024, 04/13/2024, Additional history exists Colonoscopy [...] history of malignant neoplasm of large intestine Iron deficiency anemia due to chronic blood loss Iron deficiency anemia secondary to blood loss (chronic) 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
--- OUTSIDE RECORDS SUMMARY | 2024-12-05 11:21 | External Medical Summary | Summary of Care ---
Author Name Unknown Organization [facility] Address [address] [facility] [place] [address] Phone [phone] Care Team Providers Care Professor Of Education Name Role Phone Donovan Ruvalcaba Primary Care Provide r Reason for Visit * Reason Comments Outpatient Testing Encounter Details Date Type Department Care Team (Latest Contact Info) Description 10/29/2024 1:30 PM EST Laboratory Laboratory, [facility] [address] [facility] [phone] [facility] [address] [facility] [address] Encounter for follow-up examination after completed treatment for malignant neoplasm; History of colon cancer, stage I; Anemia, unspecified type; Stage 3a chronic kidney disease (HCC); 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 yrs. ago? 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 goal ([facility]) as directed 100 5 2 Active ONE TOUCH STRP VIIndications:DM type 2, not at goal ([facility]) once daily 50 5 7 [...] as of this encounter (statuses as of 10/29/2024) Active Problems Problem Noted Date Diagnosed Date [...] PA-C Comment: abnormal nuclear 2018 Entered By: LASHLEL LIU PA-C Comment: no further cardiac testing [...] on left side 06/30/2014 Overview (07/09/2014): admitted [facility], cystoscopy, ureteroscopy, lithrotripsy, with ureteral stent [...] as of this encounter (statuses as of 10/29/2024) Resolved Problems Problem Noted Date Diagnosed Date [...] as of this encounter (statuses as of 10/29/2024) Immunizations Name Administration Dates Next Due Pneumococcal [...] Industry Job Start Date Job End Date [employer] Not on file Not on file Not on file documented as of this encounter Plan of Treatment Upcoming Encounters Date Type Department Care Team (Latest Contact Info) Description 11/06/2024 1:15 PM EST Imaging Radiology [facility] [place] [address] 11/12/2024 1:30 PM EST Office Visit Cardiology, [facility] [address] [place] [address] Elisa Jay PA-C [address] [place] [address] [place] [address] 01/13/2025 2:00 PM EDT Office Visit Gastroenterology , [facility] [address] [place] [address] Viridiana Ortiz CRNP [address] [place] [address] 03/29/2025 2:00 PM EDT Hospital Encounter ENDO [facility], Endoscopy Room [facility] [address] [place] [phone] Lena Parsons MD [address] [place] [address] [place] [address] 03/29/2025 2:00 PM EDT - 03/29/2025 2:30 PM EDT Surgery ENDO [facility], Endoscopy Room [facility] 132 [facility] [place] [address] Lena Parsons MD [address] [place] [address] ESOPHAGOGASTRODUODENOSCOPY (EGD), FLEXIBLE, TRANSORAL, DIAGNOSTIC Pending Results Name Type Priority Associated Diagnoses Date /Time IRON SCREEN, INCLUDING TIBC Lab STAT Encounter for follow-up examination after completed treatment for malignant neoplasm History of colon cancer, stage I Anemia, unspecified type Stage 3a chronic kidney disease (HCC) 10/29/2024 1:25 PM EST FERRITIN Lab STAT Encounter for follow-up examination after completed treatment for malignant neoplasm History of colon cancer, stage I Anemia, unspecified type Stage 3a chronic kidney disease (HCC) 10/29/2024 1:25 PM EST CEA Lab STAT Encounter for follow-up examination after completed treatment for malignant neoplasm History of colon cancer, stage I Anemia, unspecified type Stage 3a chronic kidney disease (HCC) 10/29/2024 1:25 PM EST Scheduled Procedures Name Priority Associated Diagnoses Date/Ti me ESOPHAGOGASTRODUODENOSCOPY ( EGD), FLEXIBLE, TRANSORAL, DIAGNOSTIC 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) Secondary esophageal varices without bleeding (HCC) 03/29/2025 2:00 PM EDT Health Maintenance Due Date Last Done Comments CKD PHOS USE SMARTSET 60304 1967 DTap/Tdap Vaccines (1 - Tdap) 01/22/1968 [...] Monitoring 09/24/2025 09/24/2024 CKD HGB USE SMARTSET 46161 10/29/202510/29, 10/29/2024, 04/13/2024, Additional history exists Colonoscopy [...] Date/Time Associated Diagnosis Comments DIFFERENTIAL, AUTOMATED STAT 10/29/2024 1:25 PM EST Encounter for follow-up examination after completed treatment for malignant neoplasm History of colon cancer, stage I Anemia, unspecified type Stage 3a chronic kidney disease (HCC) COMPREHENSIVE METABOLIC PANEL STAT 10/29/2024 1:25 PM EST Encounter for follow-up examination after completed treatment for malignant neoplasm History of colon cancer, stage I Anemia, unspecified type Stage 3a chronic kidney disease (HCC) CBC STAT 10/29/2024 1:25 PM EST Encounter for follow-up examination after completed treatment for malignant neoplasm History of colon cancer, stage I Anemia, unspecified type Stage 3a chronic kidney disease (HCC) PT INR Routine 10/29/2024 1:25 PM EST 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) CBC STAT 10/29/2024 1:25 PM EST Encounter for follow-up examination after completed treatment for malignant neoplasm History of colon cancer, stage I Anemia, unspecified type Stage 3a chronic kidney disease (HCC) DIFFERENTIAL, TECHNOLOGIST REVIEW Routine 10/29/2024 1:25 PM EST Encounter for follow-up examination after completed treatment for malignant neoplasm History of colon cancer, stage I Anemia, unspecified type Stage 3a chronic kidney disease (HCC) documented in this encounter Results * (ABNORMAL) DIFFERENTIAL, TECHNOLOGIST REVIEW (10/29/2024 1:25 PM EST) nRs 10/29/2024 2:08 PM EST [facility] [facility] Schistocytes Few(A) None Seen 10/29/2024 2:08 PM EST [facility] [facility] Blood Venous blood specimen / Unknown Venipuncture / Unknown 10/29/2024 1:25 PM EST 10/29/2024 1:25 PM EST us Bette [place] LAB BLOOD ORDERABLES Fi nal Result [facility] [place] [facility]-10 [address] [place] [address] * (ABNORMAL) DIFFERENTIAL, AUTOMATED (10/29/2024 1:25 PM EST) WBC 4.40 4.00 - 10.80 K/uL 10/29/2024 2:08 PM EST [facility] Neutrophils % 73.0 40.0 - 75.0 % 10/29/2024 2:08 PM EST [facility] Lymphocytes % 15.7(L) 18.0 - 42.0 % 10/29/2024 2:08 PM EST [facility] Monocytes % 7.0 1.0 - 11.0 % 10/29/2024 2:08 PM EST [facility] Eosinophils % 3.4 0.0 - 6.0 % 10/29/2024 2:08 PM EST [facility] Basophils % 0.9 0.0 - 2.0 % 10/29/2024 2:08 PM EST [facility] [place] [facility] [facility]10 Absolute Neutrophils 3.21 1.80 - 7.70 K/uL 10/29/2024 2:08 PM EST [facility] Absolute Lymphocytes 0.69(L) 1.00 - 4.80 K/ul 10/29/2024 2:08 PM EST [facility] Absolute Monocytes 0.31 0.00 - 1.10 K/uL 10/29/2024 2:08 PM EST [facility] Absolute Eosinophils 0.15 0.00 - 0.70 K/uL 10/29/2024 2:08 PM EST [facility] Absolute Basophils 0.04 0.00 - 0.20 K/uL 10/29/2024 2:08 PM EST [facility] Blood Venous blood specimen / Unknown Venipuncture / Unknown 10/29/2024 1:25 PM EST 10/29/2024 1:25 PM EST us Bette [place] LAB BLOOD ORDERABLES Fi nal Result [facility] [place] [address] * (ABNORMAL) CBC (10/29/2024 1:25 PM EST) Pathologist [facility] WBC 4.40 4.00 - 10.80 K/uL 10/29/2024 2:08 PM EST [facility] RBC 3.45 4.50 - 5.25 M/uL 10/29/2024 2:08 PM EST [facility] 57-10 HGB 8.7(L) 14.0 - 16.8 g/dL 10/29/2024 2:08 PM EST [facility]10 HCT 29.4(L) 40.0 - 48.4 % 10/29/2024 2:08 PM EST [facility]10 MCV 85.2 82.0 - 99.5 fL 10/29/2024 2:08 PM EST [facility]10 MCH 25.2 27.0 - 34.0 pg 10/29/2024 2:08 PM EST [facility] 57[facility]10 MCHC 29.6 32.0 - 36.0 g/dL 10/29/2024 2:08 PM EST [facility] [place] 57-10 RDW 21.1 11.5 - 15.5 % 10/29/2024 2:08 PM EST [facility] 57[facility]10 PLT 117(L) 140 - 400 K/uL 10/29/2024 2:08 PM EST [facility] 57[facility]10 MPV 8.7 6.6 - 11.1 fL 10/29/2024 2:08 PM EST [facility] [place] 57-10 Blood Venous blood specimen / Unknown Venipuncture / Unknown 10/29/2024 1:25 PM EST 10/29/2024 1:25 PM EST us Bette [place] LAB BLOOD ORDERABLES Fi nal Result [facility] 57-10 [address] [place] [address] * (ABNORMAL) PT INR (10/29/2024 1:25 PM EST) Prothrombin Time 15.3(H) 11.6 - 15.2 seconds 10/29/2024 1:56 PM EST [facility] 57-10 INR 1.2 0.8 - 1.2 10/29/2024 1:56 PM EST [facility] 57[facility]10 Blood Venous blood specimen / Unknown Venipuncture / Unknown 10/29/2024 1:25 PM EST 10/29/2024 1:25 PM EST Narrative [facility] [place] 57-10 - 10/29/2024 1:56 PM EST Warfarin Therapy INR: 2.0-3.0 conventional anticoagulation INR: 2.5-3.5 high intensity anticoagulation us Viridiana MO LAB BLOOD ORDERABLES Final Result [facility]10 [address] [place] [address] * (ABNORMAL) COMPREHENSIVE METABOLIC PANEL (10/29/2024 1:25 PM EST) BUN 14 6 - 20 mg/dL 10/29/2024 1:56 PM EST [facility] [place] 57-10 CREATININE 1.2 0.6 - 1.2 mg/dL 10/29/2024 1:56 PM EST [facility] [place] 57-10 EGFR 62 >=60 mL/min 10/29/2024 1:56 PM EST [facility] 57[facility]10 Comment:eGFR is calculated b ased on the CKD-EPI 2020 equation. SODIUM 141 135 - 146 mmol/L 10/29/2024 1:56 PM EST [facility] [place] 57-10 POTASSIUM 4.0 3.5 - 5.1 mmol/L 10/29/2024 1:56 PM EST [facility] [place] 57-10 CHLORIDE 104 98 - 107 mmol/L 10/29/2024 1:56 PM EST [facility] [place] 57-10 CO2 29 22 - 32 mmol/L 10/29/2024 1:56 PM EST [facility]10 ANION GAP 8 7 - 15 mmol/L 10/29/2024 1:56 PM EST [facility] 57[facility]10 GLUCOSE 75 70 - 120 mg/dL 10/29/2024 1:56 PM EST [facility] [place] 57-10 Albumin 3.2(L) 3.8 - 5.0 g/dL 10/29/2024 1:56 PM EST [facility] AST 55(H) 10 - 50 U/L 10/29/2024 1:56 PM EST [facility] [place] [facility] [facility] Alkaline Phosphatase 223(H) 35 - 130 U/L 10/29/2024 1:56 PM EST [facility] [place] [facility] Bilirubin, Total 1.7(H) <=1.2 mg/dL 10/29/2024 1:56 PM EST [facility] [place] [facility] CALCIUM 8.6 8.4 - 10.2 mg/dL 10/29/2024 1:56 PM EST [facility] Protein 5.9(L) 6.0 - 8.3 g/dL 10/29/2024 1:56 PM EST [facility] [place] [facility] ALT 33 10 - 50 U/L 10/29/2024 1:56 PM EST [facility] [place] [facility]10 Blood Venous blood specimen / Unknown Venipuncture / Unknown 10/29/2024 1:25 PM EST 10/29/2024 1:25 PM EST us Bette MO LAB BLOOD ORDERABLES Fi nal Result [facility] [place] 57-10 [address] [facility] [address] documented in this encounter Visit Diagnoses Diagnosis Encounter for follow-up examination after completed treatment for malignant neoplasm Unspecified follow-up examination History of colon cancer, stage I Personal history of malignant neoplasm of large intestine Anemia, unspecified type Stage 3a chronic kidney disease (HCC) 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
--- OUTSIDE RECORDS SUMMARY | 2024-12-05 11:21 | External Medical Summary | Summary of Care ---
Author Name Unknown Organization [facility] Address [address] [facility] [address] Phone [phone] Care Team Providers Care Fur Operator Name Role Phone Donovan Ruvalcaba Primary Care Provide r Encounter Details Date Type Department Care Team (Late st Contact Info) Description 10/30/2024 Telephone Hematology/Oncology [facility] [place] [address] [facility] [address] Bette Ortiz CRNP [address] [facility] [place] [address] Allergies Active Allergy Reactions Criticality Noted Date Comments Iodinated Contrast Media High 07/13/2021 MRI Other Reaction(s): Vomiting Quinolones Unknown 04/08/1998 ? yrs. ago? documented as of this encounter (statuses as of 10/30/2024) Medications ONE TOUCH LANCETS MISCIndications:D M type [...] as of this encounter (statuses as of 10/30/2024) Active Problems Problem Noted Date Diagnosed Date [...] left side 06/30/2014 Overview (07/09/2014): admitted [facility], cystoscopy, ureteroscopy, lithrotripsy, with ureteral stent [...] as of this encounter (statuses as of 10/30/2024) Resolved Problems Problem Noted Date Diagnosed Date [...] as of this encounter (statuses as of 10/30/2024) Immunizations Name Administration Dates Next Due Pneumococcal [...] Job Start Date Job End Date [employer] Not on file Not on file Not on file documented as of this encounter Miscellaneous Notes * Telephone Encounter - Bette rOtizCHEPE - 10/30/2024 11:02 AM EST Results for orders placed or performed in [...] Range nRBCs Schistocytes Few (A) None Seen Worsening iron deficiency anemia despite taking ferrous sulfate one tablet daily. Order placed for IV Venofer 300 mg weekly x 4 infusions. Please make patient aware and assist with scheduling if agreeable. Patient also needs to reschedule missed office visit with provider. documented in this encounter Plan of Treatment Upcoming Encounters Date Type Department Care Team (Latest Contact Info) Description 11/06/2024 1:15 PM EST Imaging Radiology [facility] 132 [facility] [place] [phone] 11/12/2024 1:30 PM EST Office Visit Cardiology, [address] [place] [address] Elisa Jay PA-C [address] [place] [address] 01/13/2025 2:00 PM EDT Office Visit Gastroenterology , [facility] [address] [place] [address] Viridiana Ortiz CRNP [address] [place] [address] 03/29/2025 2:00 PM EDT Hospital En[facility] [place] [phone] Lena Parsons MD [facility] [place] [address] 03/29/2025 2:00 PM EDT - 03/29/2025 2:30 PM EDT Surgery ENDO [facility], Endoscopy Room [facility] 132 [facility] [place] [phone] Lena Parsons MD [address] [place] [address] ESOPHAGOGASTRODUODENOSCOPY (EGD), FLEXIBLE, TRANSORAL, DIAGNOSTIC Scheduled Procedures Name Priority Associated Diagnoses Date/Ti ut ESOPHAGOGASTRODUODENOSCOPY ( EGD), FLEXIBLE, TRANSORAL, DIAGNOSTIC 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) Secondary esophageal varices without bleeding (HCC) 03/29/2025 2:00 PM EDT Health Maintenance Due Date Last Done Comments CKD PHOS USE SMARTSET 91741 1967 DTap/Tdap Vaccines (1 - Tdap) 01/22/1968 Albumin/Creatinine Ratio 01/18/2010 009, 10/28/2006, 04/26/2006, Additional history exists Diabetic Foot Exam 03/18/2015 03/18/2014, 0 01/18/2009, 05/22/2007 HbA1c 11/26/2023 05/28/2023, 09/2022, 09/18/2007, Additional history exists *COPD SEVERITY VERIFIED BY PFT 04/30/2024 COVID-19 Vaccine ( season) 2024 Diabetic Eye Exam 12/16/2024 12/17/2023, 07/19/2007 O2 ASSESSMENT COMPLETED IN PAST YEAR FOR COPD 03/17/2025 03/17/2024 GFR 04/28/2025 10/29/2024, 03/17, 10/14/2023, Additional history exists Depression Monitoring 09/24/2025 09/24/2024 CKD HGB USE SMARTSET 11603 10/29/202510/29, 10/29/2024, 04/13/2024, Additional history exists Colonoscopy [...] elsewhere documented in this encounter Care Teams Fur Operator Relationship Specialty Start Date End Date Donovan Ruvalcaba CRNP [address] [place] [address] PCP - General Nurse Practitioner 03/20/24 documented as of this encounter
--- OUTSIDE RECORDS SUMMARY | 2024-12-05 11:21 | External Medical Summary | Summary of Care ---
Author Name Unknown Organization [facility] Address [address] [place] [address] Phone [phone] Care Team Providers Care Etiquette Teacher Name Role Phone Donovan Ruvalcaba Primary Care Provide r Reason for Visit * Reason Onset Date Comments Test Results Lab 10/30/2024 Gregoria Encounter Details Date Type Department Care Team (Late st Contact Info) Description 10/30/2024 Telephone Hematology/Oncology [facility] [place] [address] [facility] [address] Bette Ortiz CRNP [address] [place] [address] Test Results Lab (Gregoria) Allergies Active Allergy Reactions Criticality Noted Date Comments Iodinated Contrast Media High 07/13/2021 MRI Other Reaction(s): Vomiting Quinolones Unknown 04/08/1998 ? yrs. ago? 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 goal ([facility]) as directed 100 5 2 Active ONE TOUCH STRP VIIndications:DM type 2, not at goal ([facility]) once daily 50 5 7 Active ASPIRIN [...] as of this encounter (statuses as of 11/02/2024) Active Problems Problem Noted Date Diagnosed Date [...] on left side 06/30/2014 Overview (07/09/2014): admitted [facility], cystoscopy, ureteroscopy, lithrotripsy, with ureteral [...] as of this encounter (statuses as of 11/02/2024) Resolved Problems Problem Noted Date Diagnosed Date [...] as of this encounter (statuses as of 11/02/2024) Immunizations Name Administration Dates Next Due Pneumococcal [...] Industry Job Start Date Job End Date [employer] Not on file Not on file Not on file documented as of this encounter Miscellaneous Notes * Telephone Encounter - Sheila Munoz LPN - 11/02/2024 12:18 PM EST Bette [employer] Patient is agreeable to iron infusions. He reports he takes 1 tablet twice daily of the Ferrous Sulfate. * Telephone Encounter - Sheila Munoz LPN - 11/02/2024 12:03 PM EST Spoke with patient, informed patient of test result message from provider below. Patient states he takes "one tablet twice a day" of the Ferrous Sulfate. Provided patient with medication on Venofer. Patient verbalized understanding and is in agreement to having the venofer infusions. He refused offer to schedule all appointments at once. Patient agreeable to scheduling his first infusion on 11/09/2024 at 1:30 pm. Provided patient education on treatment room and visitor policies, he verbalized understanding. Patient is requesting afternoon appointments, he accept rescheduled appointment with Bette on 11/17/2024 at 12:00 pm. He denies any other needs or concerns at this time. * Telephone Encounter - Bette Ortiz CRNP - 10/30/2024 11:02 AM EST Results for [...] Description 11/06/2024 1:15 PM EST Imaging Radiology [facility] 132 [facility] [place] [phone] 11/09/2024 1:30 PM EST Hem/Onc Treatment Hematology/Oncol [facility] [address] [facility] [phone] [place], Chair 8 Hem Onc [address] [place] [address] 11/12/2024 1:30 PM EST Office Visit Cardiology, [facility] 132 [facility] [place] [address] Elisa Jay PA-C [address] [place] [phone] 11/17/2024 12:00 PM EST [facility] [address] [facility] [phone] Bette Ortiz CRNP [address] [place] [address] 01/13/2025 2:00 PM EDT Office Visit Gastroenterology , [facility] [address] [place] [address] Viridiana Ortiz CRNP [address] [place], [place] [address] 03/29/2025 2:00 PM EDT Hospital Encounter ENDO [facility], Endoscopy Room [facility] 132 [facility] [place], [place] [phone] Lena Parsons MD [facility] [place] [address] 03/29/2025 2:00 PM EDT - 03/29/2025 2:30 PM EDT Surgery ENDO [facility], Endoscopy Room [facility] [place] [phone] Lena Parsons MD [address] [place] [address] ESOPHAGOGASTRODUODENOSCOPY (EGD), FLEXIBLE, TRANSORAL, DIAGNOSTIC Scheduled Procedures Name Priority Associated Diagnoses Date/Ti oh ESOPHAGOGASTRODUODENOSCOPY ( EGD), FLEXIBLE, TRANSORAL, DIAGNOSTIC 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
--- OUTSIDE RECORDS SUMMARY | 2024-12-05 11:21 | External Medical Summary | Summary of Care ---
Author Name Unknown Organization [facility] Address [address] [place] [address] Phone [phone] Care Team Providers Care Locker Room Supervisor Name Role Phone Donovan Ruvalcaba Primary Care Provide r Reason for Visit * Reason Comments NEW PATIENT Liver Disease * Evaluate & Treat - Unlimited Visits (Within 30 days (routine)) - Authorized Specialty Diagnoses / Procedures Referred By Radha viera Referred To Contact Gastroenterology Diagnoses Nausea with vomiting, unspecified Donovan Ruvalcaba CRNP [address] [place] [address] Phone: tel: fax: Referral ID Status Reason Start Date Expiration Date Visits Requested Visits Authorized [id number] Authorized Specialty Services Required 05/20/2024 02/10/[phone] Encounter Details Date Type Department Care Team (Latest Contact Info) Description 10/29/2024 12:00 PM EST Office Visit Gastroenterology, [facility] [address] [address] Viridiana Ortiz CRNP [address] [place] [address] 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 yrs. ago? documented as of this encounter (statuses as of 10/29/2024) Medications ONE TOUCH LANCETS MISCIndications: DM type [...] the morning. 180 Tablet 3 5 Active Ozempic (0.25 or 0.5 MG/DOSE) 2 MG/1.5ML Solution Pen-injector (Semaglutide(0.2 5 or 0.5MG/DOS)) Inject 0.25 mg under the skin once a week. 10/29/19 Discontinu ed(Patient preference /discontin uation) Nadolol 20 MG Oral Tablet (Corgard) Take 1 Tablet by mouth in the morning. 180 Tablet 2 3 10/29/19 Discontinu ed(Refill) documented as of this encounter (statuses as [...] By: LASHELL LIU PA-C Comment: abnormal nuclear 10/2019Oct 16, 2019 Entered By: LASHELL LIU PA-C Comment: no [...] on left side 06/30/2014 Overview (07/09/2014): admitted [facility], cystoscopy, ureteroscopy, lithrotripsy, with ureteral [...] No 09/24/2024 Does the household have a [facility] source of income? (Household - for ages [...] Industry Job Start Date Job End Date [employer] Not on file Not on file Not on file documented as of this encounter Last Filed Vital Signs Vital Sign Reading Time Taken Comments Blood Pressure 138/77 10/29/2024 12:41 PM EST Pulse 72 10/29/2024 12:41 PM EST Temperature 36.8 C (98.2 F) 10/29/2024 12:[address] Respiratory Rate 18 10/29/2024 12:41 PM EST Oxygen Saturation - - Inhaled Oxygen Concentration - - Weight 106.4 kg (234 lb 8 oz) 10/29/2024 12:41 P M EST Height 175.3 cm (5' 9") 10/29/2024 12:41 PM EST Body Mass Index 34.63 10/29/2024 12:41 PM EST documented in this encounter Patient Instructions * Patient Instructions* Viridiana Ortiz CRNP - 10/29/2024 12:57 PM EST New medicines: 1 Nadolol 20mg daily. You were on this in 2022 - not sure why it was stopped, but it prevents bleeding from the esophageal varices. 2. Spironolactone 50mg every morning. This helps the swelling in your abdomen and legs. These [place]. Please get your blood tests done a week after starting these medicines. You need an ultrasound on your liver to check for cancer. You need an EGD every year due in March See me again in 2 months. documented in this encounter Progress Notes * Viridiana Ortiz CRNP - 10/29/2024 12:26 PM EST Consult requested by REF: SELF NO STRE[address] ADDRESS AVAILABLE CC: Cirrhosis HPI: 74 year old male pt of CHEPE Ovalles with a hx of colon adenocarcinoma, COPD, HTN, HLD, DM-2 fatty liver who presents today for Cirrhosis. He presents in a wheelchair. He was seen here previously at that time on Nadolol for EV. He doesn't recall being on Nadolol and is unsure why he was taken off Nadolol No yellow eyes, no yellow skin, no abd pain,no blood in BMs, No N/V, denies his abd getting larger. Diagnostic Testing: EGD March 2024: - Grade I esophageal varices. - Portal hypertensive gastropathy. - Normal duodenal bulb and second Liver bx November 2022: Evolving cirrhosis (stage 3-4 of 4) in background of moderate steatohepatitis and Sofía body formation. Liver US Jun 2023: Status post cholecystectomy. Extrahepatic common duct again prominent as discussed above. Hepatomegaly. Nonspecific hepatic findings compatible with patient's clinical history of cirrhosis. Splenomegaly. Small amount of perihepatic ascitic fluid. Labs: most recent CBC, CMP in March 2024 Hb 10.7, creatinine 1.2. T Bili 2.0. ROS: + as per HPI A total of 12 systems were reviewed, all others (-). ALLERGIES: Review of patient's allergies indicates: Allergen Reactions Iodinated Contrast Media MRI Other Reaction(s): Vomiting Quinolones Unknown ? yrs. ago? PMH/PSH/Soc Hx reviewed, significant for: Past Medical History: Diagnosis Date Acute cholecystitis Adenocarcinoma of colon (HCC) Anemia BMI 33.0-33.9,adult Calculus of kidney Calculus of kidney Chronic renal insufficiency 10/28/2006 26/1.4 GFR 55.5 Colon polyps COPD (chronic obstructive pulmonary disease) (HCC) Corns and callosities Depressive disorder, not elsewhere classified DM type 2, not at goal (HCC) 04/20/2003 Edema Fatty liver Hyperlipidemia Hypertension Hypogonadism male Keratoconus Kidney disease, chronic, stage III (GFR 30-59 ml/min) (HCC) Left knee pain Mixed dyslipidemia Panic disorder Panic disorder Panic disorder (episodic paroxysmal anxiety) Polyneuropathy in diabetes(357.2) Renal colic on left side 06/30/2014 admitted [facility], cystoscopy, ureteroscopy, lithrotripsy, with ureteral stent Renal colic on right side 03/14/2014 [facility] ER had distal R ureter stones, largest 11 mm Tinea pedis Tinea unguium Past Surgical History: Procedure Laterality Date BIOPSY OF PROSTATE 11/2007 benign, Dr. Rhodes CALCANEOUS FX W/FIXATION 1991 COLONOSCOPY, DIAGNOSTIC (RECTUM) 09/15/2018 adenomatous & hyperplastic polyps, diverticulosis, repeat 5 yrs/COLONOSCOPY FLEXIBLE PROXIMAL DIAGNOSTIC performed by Cheyanne Peña DO at ENDOSCOPY [facility] COLONOSCOPY, DIAGNOSTIC (RECTUM) 07/24/2021 mulitple polyps, rule out malignancy/biopsies show adenocarcinoma, multiple tubular adenoma and tubulovillous adenoma/COLONOSCOPY FLEXIBLE PROXIMAL DIAGNOSTIC performed by Cheyanne Peña DO at ENDOSCOPY [facility] COLORECTAL CANCER SCREEN; NOT AT RISK 06/24/2007 CT ABDOMEN/PELVIS 03/14/2014 liver 21 cm heart enlarged, obstruction calculus in proximal right ureter, at least 4 obstructing calculi in distal right ureter, mod hydronephrosis CYSTOSCOPY/INSERTION OF STENT 07/01/2014 [facility], for left renal stone EGD, FLEXIBLE, DIAGNOSTIC 11/14/2022 esophageal varices / ESOPHAGOGASTRODUODENOSCOPY (EGD), FLEXIBLE, TRANSORAL, DIAGNOSTIC performed byMiguel Burkett MD at ENDOSCOPY [facility] EGD, FLEXIBLE, DIAGNOSTIC 02/19/2023 mild portal gastropathy, eso varices, repeat 1 mo / ESOPHAGOGASTRODUODENOSCOPY (EGD), FLEXIBLE, TRANSORAL, DIAGNOSTIC performed by Sanjuana Baker MD at ENDOSCOPY [facility] EGD, FLEXIBLE, DIAGNOSTIC 03/17/2024 grade I esophageal varices/portal hypertensive gastropathy/recall 6 months/ESOPHAGOGASTRODUODENOSCOPY (EGD), FLEXIBLE, TRANSORAL, DIAGNOSTIC performed by Miguel Burkett MD at ENDOSCOPY [facility] EGD, W/ENDOSCOPIC US 11/14/2022 fatty liver disease / ESOPHAGOGASTRODUODENOSCOPY (EGD), FLEXIBLE, TRANSORAL, ENDOSCOPIC ULTRASOUND performed by Miguel Burkett MD at ENDOSCOPY [facility] KNEE ARTHROSCOPY/MENISCUS REPAIR 07/2003 bilateral REMOVE GALLBLADDER 1994 laparoscopic Social History Socioeconomic History Marital status: Occupational History Occupation: [employer] Tobacco Use Smoking status: Former Current packs/day: 0.00 Average packs/day: 1 pack/day for 15.0 years (15.0 ttl pk-yrs) Types: Cigarettes Start date: 09/16/1963 Quit date: 09/16/1978 Years since quittin.1 Smokeless tobacco: Never Vaping Use Vaping status: Never Used Substance and Sexual Activity Alcohol use: No Drug use: No Sexual activity: Yes Partners: Female Social Needs Financial Resource Strain: Low Risk (09/24/2024) Financial Resource Strain Do you have any trouble paying for your medications, or do you think you might in the future? (Adult - for ages 18 years and over): No Food Insecurity: No Food Insecurity (09/24/2024) Food Insecurity Worried About Running Out of Food in the Last Year: Never true Ran Out of Food in the Last Year: Never true Do you need food for this week? (Adult - for ages 18 years and over): No Transportation Needs: No Transportation Needs (09/24/2024) Transportation Needs Has lack of transportation kept you from medical appointments, meetings, work, or from getting things needed for daily living? Check all that apply. (Adult - for ages 18 years and over): No Social Connections: Socially Integrated (09/24/2024) Social Connections How often do you feel lonely or isolated from those around you? (Adult - for ages 18 years and over): Rarely Housing Stability: Low Risk (09/24/2024) Housing Stability Do you currently live in a fpc or have no steady place to sleep at night? (Adult - for ages 18 years and over): No Are you homeless or worried that you might be in the future? (Adult - for ages 18 years and over): No Family history reviewed and significant for: Family History Problem Relation Name Age of Onset Cancer Mother breast Cancer Father liver Diabetes Grandmother (Maternal) Heart Disorder Brother CABG age 57 Cancer Sister breat Diabetes Brother Asthma Son Current Outpatient Medications Medication Sig Dispense Refill Furosemide 20 MG Oral Tablet (Lasix) Take 2 Tablets by mouth in the morning. 180 Tablet 3 Insulin Glargine 100 UNIT/ML Subcutaneous Solution (Lantus) Inject 70 Units under the skin in the morning. Pen. Alfuzosin HCl ER 10 MG Oral Tablet Extended Release 24 Hour (Uroxatral) Take 1 Tablet by mouth in the morning. Atorvastatin Calcium 80 MG Oral Tablet (Lipitor) Take 1 Tablet by mouth in the morning. Escitalopram Oxalate 10 MG Oral Tablet (Lexapro) Take 1 Tablet by mouth in the morning. Nadolol 20 MG Oral Tablet (Corgard) Take 1 Tablet by mouth in the morning. 180 Tablet 2 Pantoprazole Sodium 40 MG Oral Tablet Delayed Release (Protonix) Take 1 Tablet by mouth in the morning. 90 Tablet 3 Albuterol Sulfate HFA 108 (90 Base) MCG/ACT Inhalation Aerosol Solution Inhale 2 Puffs by mouth every 6 hours as needed. Vitamin C 500 MG Oral Tablet Chewable Take 0.5 Tablets by mouth in the morning. hydrOXYzine HCl 10 MG Oral Tablet (Atarax) Take 1 Tablet by mouth at bedtime as needed for Itching or Other (sleep). Ozempic (0.25 or 0.5 MG/DOSE) 2 MG/1.5ML Solution Pen-injector (Semaglutide(0.25 or 0.5MG/DOS)) Inject 0.25 mg under the skin once a week. Empagliflozin 25 MG Oral Tablet (Jardiance) Take 1 Tablet by mouth in the morning. Cholecalciferol 25 MCG (1000 UT) Oral Capsule Take 2 Capsules by mouth in the morning. Ferrous Sulfate 325 (65 Fe) MG Oral Tablet (Feosol) Take 1 Tablet by mouth daily with breakfast. allopurinol (ZYLOPRIM) 100 MG Tablet Take 1 Tablet by mouth in the morning. Insulin Syringe 30G X 1/2" 0.5 ML MISC ASPIRIN 81 MG PO TABS daily ONE TOUCH STRP once daily 50 5 ONE TOUCH LANCETS MISC as directed 100 5 No current facility-administered medications for this visit. EXAM: BP 138/77 | Pulse 72 | Temp 36.8 C (98.2 F) | Resp 18 | Ht 1.753 m (5' 9") | Wt 106.4 kg (234 lb 8 oz) | BMI 34.63 kg/m | BSA 2.28 m GENERAL: 74 year old male well developed and well nourished in no acute distress SKIN: no rashes, ulcers, or spider angiomata HEENT: normocephalic, sclera clear, pharynx normal NECK: supple, no lymphadenopathy, no masses or thyroid enlargement LUNGS: clear to auscultation anterior and posterior HEART: regular rate & rhythm, no murmurs and no gallops ABDOMEN: normo-active bowel sounds, soft, non-tender, non-distended no masses, no hepatosplenomegaly, no rebound or guarding, no bruits, no ascites EXTREMITIES: 1-2 + edema of the lower legs, no palmar erythema, no edema, no skin discoloration, noclubbing, no cyanosis NEURO: no lateralizing findings, Sensory/Motor grossly normal IMPRESSION/RECOMMENDATIONS: 74 year old male with 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) (Primary) - CBC WITH WBC DIFFERENTIAL; Future; Expected date: 10/29/2024 - COMPREHENSIVE METABOLIC PANEL - PT INR; Future; Expected date: 10/29/2024 - US ABDOMEN LIMITED; Future; Expected date: 10/29/2024 - BASIC METABOLIC PANEL; Future; Expected date: 11/05/2024 - EGD, FLEXIBLE, DIAGNOSTIC Secondary esophageal varices without bleeding (HCC) - EGD, FLEXIBLE, DIAGNOSTIC due in March. - Nadolol 20 MG Oral Tablet (Corgard); Take 1 Tablet by mouth in the morning. For prevention of variceal bleeding - Spironolactone 50 MG Oral Tablet (Aldactone); Take 1 Tablet by mouth in the morning. For ascites/edema - 2 gram sodium diet. Hx colon cancer: refuses colonoscopy - BASIC METABOLIC PANEL; Future; Expected date: 11/05/2024 Call if yellow eyes, yellow skin, enlarging abdomen or severe fluid on lower legs. Recheck here in 2 months. I spent a total of 60 minutes on the date of service in review of patient's record, and previously obtained information in person and appropriate medical visit, discussion and education of plan, withpatient and/or caregiver, placing orders for tests/referral/procedures as medically necessary and documentation of pertinent clinical information in patient's medical records for their visit today. [facility] Gastroenterology documented in this encounter Nursing Notes * Kavya Anna RN - 10/29/2024 12:42 PM EST Chief Complaint Patient presents with NEW PATIENT Liver Disease Pt no longer taking Nadolol documented in this encounter Plan of Treatment Upcoming Encounters Date Type Department Care Team (Latest Contact Info) Description 11/06/2024 1:15 PM EST Imaging Radiology [address] [place] [address] 11/12/2024 1:30 PM EST Office Visit Cardiology, [address] [place] [address] Elisa Jay PA-C [address] [place] [address] [id number] 01/13/2025 2:00 PM EDT Office Visit Gastroenterology , [facility] [address] [place] [address] Viridiana Ortiz CRNP [address] [place] [address] 03/29/2025 2:00 PM EDT Hospital Encounter ENDO [facility], Endoscopy Room [facility] [address] [place] [phone] Lena Parsons MD [address] [address] 03/29/2025 2:00 PM EDT - 03/29/2025 2:30 PM EDT Surgery ENDO [facility], Endoscopy Room [facility] [address] [place] [address] Lena Parsons MD [address] [place] [id number] ESOPHAGOGASTRODUODENOSCOPY (EGD), FLEXIBLE, TRANSORAL, DIAGNOSTIC Scheduled Orders Name Type Priority Associated Diagnoses Orde r Schedule US ABDOMEN LIMITED Medical Imaging Routine 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) Expected: 10/29/2024, Expires: 11/26/2025 BASIC METABOLIC PANEL Lab Routine 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) Secondary esophageal varices without bleeding (HCC) Expected: 11/05/2024, Expires: 10/29/2025 EGD, FLEXIBLE, DIAGNOSTIC Procedures Routine 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) Secondary esophageal varices without bleeding (HCC) Ordered: 10/29/2024 Scheduled Procedures Name Priority Associated Diagnoses Date/Ti me ESOPHAGOGASTRODUODENOSCOPY ( EGD), FLEXIBLE, TRANSORAL, DIAGNOSTIC 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) Secondary esophageal varices without bleeding (HCC) 03/29/2025 2:00 PM EDT Health Maintenance Due Date Last Done Comments CKD PHOS USE SMARTSET 62993 1967 DTap/Tdap Vaccines (1 - Tdap) 01/22/1968 [...] Monitoring 09/24/2025 09/24/2024 CKD HGB USE SMARTSET 51017 10/29/202510/29, 10/29/2024, 04/13/2024, Additional history exists Colonoscopy [...] Not on filedocumented as of this encounter Results * (ABNORMAL) PT INR (10/29/2024 1:25 PM EST) Prothrombin Time 15.3(H) 11.6 - 15.2 seconds 10/29/2024 1:56 PM EST [facility] [place] 57-10 INR 1.2 0.8 - 1.2 10/29/2024 1:56 PM EST [facility] [place] 57-10 Blood Venous blood specimen / Unknown Venipuncture / Unknown 10/29/2024 1:25 PM EST 10/29/2024 1:25 PM EST Narrative [facility] [place] 57-10 - 10/29/2024 1:56 PM EST Warfarin Therapy INR: 2.0-3.0 conventional anticoagulation INR: 2.5-3.5 high intensity anticoagulation Viridiana MO LAB BLOOD ORDERABLES Final Result [facility] [place] [facility] [address] [facility] [address] documented in this encounter Visit Diagnoses Diagnosis 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)- Primary Idiopathic esophageal varices without bleeding (HCC) Secondary esophageal varices without bleeding (HCC) Esophageal varices without mention of bleeding in diseases classified elsewhere 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) Secondary esophageal varices without bleeding (HCC) Esophageal varices without mention of bleeding in diseases classified elsewhere documented in this encounter Care Teams Locker Room Supervisor Relationship Specialty Start Date End Date Donovan Ruvalcaba CRNP [address] [facility], [place] [address] PCP - General Nurse Practitioner 03/20/24 documented as of this encounter
--- OUTSIDE RECORDS SUMMARY | 2024-12-05 11:21 | External Medical Summary | Summary of Care ---
Author Name Unknown Organization [facility] Address [address] [place] [address] Phone [phone] Care Team Providers Care Electrical Systems Design Engineer Name Role Phone Donovan Ruvalcaba Primary Care Provide r Reason for Visit * Reason Comments IV Therapy Venofer 09/18 Encounter Details Date Type Department Care Team (Latest Contact Info) Description 11/09/2024 1:30 PM EST Hem/Onc Treatment Hematology/Oncology Treatment, [place] [address] [place] [address] Cassidy, Chair 8 Hem Onc [facility] [address] [facility] [place] [address] Iron deficiency anemia due to chronic blood loss* Allergies Active Allergy Reactions Criticality Noted Date Comments Iodinated Contrast Media High 07/13/2021 MRI Other Reaction(s): Vomiting Quinolones Unknown 04/08/1998 ? yrs. ago? documented as of this encounter (statuses as of 11/10/2024) Medications ONE TOUCH LANCETS MISCIndications:D M type 2, not at goal ([facility]) as directed 100 5 2 Active ONE TOUCH STRP VIIndications:DM type 2, not at goal ([facility]) once daily 50 5 7 [...] as of this encounter (statuses as of 11/10/2024) Active Problems Problem Noted Date Diagnosed Date [...] as of this encounter (statuses as of 11/10/2024) Resolved Problems Problem Noted Date Diagnosed Date [...] as of this encounter (statuses as of 11/10/2024) Immunizations Name Administration Dates Next Due Pneumococcal [...] Job Start Date Job End Date [address] Not on file Not on file Not [...] Department Care Team (Latest Contact Info) Description 11/12/2024 1:30 PM EST Office Visit Cardiology, [facility] [address] [facility] [place] [address] Elisa Jay PA-C [address] [place] [address] 11/16/2024 2:30 PM EST [facility] [address] [facility] [place] [phone] Cassidy, Chair 8 Hem Onc [address] [place] [address] 11/17/2024 12:00 PM EST Office Visit Hematology/Oncol ogy [facility] [address] [facility] [phone] Bette Ortiz CRNP [address] [place] [address] 01/13/2025 2:00 PM EDT Office Visit Gastroenterology , [facility] [address] [facility] [place] [address] Viridiana Ortiz CRNP [address] [facility] [place] [address] 03/29/2025 2:00 PM EDT Hospital Encounter [facility]O [facility], Endoscopy Room [facility] [address] [place] [phone] Lena Parsons MD [address] [place] [address] [place] [address] 03/29/2025 2:00 PM EDT - 03/29/2025 2:30 PM EDT Surgery [facility], Endoscopy Room [facility] [address] [place] [address] Lena Parsons MD [address] [place] [address] ESOPHAGOGASTRODUODENOSCOPY (EGD), FLEXIBLE, TRANSORAL, DIAGNOSTIC Scheduled Procedures Name Priority Associated Diagnoses Date/Ti me ESOPHAGOGASTRODUODENOSCOPY ( EGD), FLEXIBLE, TRANSORAL, DIAGNOSTIC 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) Secondary esophageal varices without bleeding (HCC) 03/29/2025 2:00 PM EDT Health Maintenance Due Date Last Done Comments CKD PHOS USE SMARTSET 60707 1967 DTap/Tdap Vaccines (1 - Tdap) 01/22/1968 [...] Monitoring 09/24/2025 09/24/2024 CKD HGB USE SMARTSET 92078 10/29/202510/29, 10/29/2024, 04/13/2024, Additional history exists Colonoscopy 07/24/2026 07/24/2021, 11/0 04/2021, 09/15/2018, Additional [...] mL/hr documented in this encounter Care Teams Electrical Systems Design Engineer Relationship Specialty Start Date End Date Donovan Ruvalcaba CRNP [address] [place] [address] PCP - General Nurse Practitioner 03/20/24 documented as of this encounter
--- OUTSIDE RECORDS SUMMARY | 2024-12-05 11:21 | External Medical Summary | Summary of Care ---
Author Name Unknown Organization [facility] Address [address] [place] [address] Phone [phone] Care Team Providers Care Husker Operator Name Role Phone Donovan Ruvalcaba Primary Care Provide r Reason for Visit * Reason Comments NEW PATIENT Liver Disease * Evaluate & Treat - Unlimited Visits (Within 30 days (routine)) - Authorized Specialty Diagnoses / Procedures Referred By Radha viera Referred To Contact Gastroenterology Diagnoses Nausea with vomiting, unspecified Donovan Ruvalcaba CRNP [address] [place] [address] Phone: tel: fax: Referral ID Status Reason Start Date Expiration Date Visits Requested Visits Authorized [id number] Authorized Specialty Services Required 05/20/2024 02/10/2025 [id number] Encounter Details Date Type Department Care Team (Latest Contact Info) Description 10/29/2024 12:00 PM EST Office Visit Gastroenterology, [facility] [address] [address] Viridiana Ortiz CRNP [address] [address] 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 yrs. ago? documented as of this encounter (statuses as of 11/02/2024) Medications ONE TOUCH LANCETS MISCIndications: DM type [...] the morning. 180 Tablet 2 3 10/29/19 25 Discontinu ed(Refill) documented as of this encounter [...] nuclear 10/2019Oct 16, 2019 Entered By: LASHELL LUI PA-C Comment: no further cardiac testing per [...] on left side 06/30/2014 Overview (07/09/2014): admitted [facility], cystoscopy, ureteroscopy, lithrotripsy, with ureteral stent DYSLIPIDEMIA, [...] No 09/24/2024 Does the household have a [facility] source of income? (Household - for ages [...] Industry Job Start Date Job End Date [employer] Not on file Not on file Not [...] legs. These medicines were sent to the [place] pharmacy. Please get your blood tests done a week after starting these medicines. You need an ultrasound on your liver to check for cancer. You need an EGD every year due in March See me again in 2 months. documented in this encounter Progress Notes * Viridiana Ortiz CRNP - 11/02/2024 8:34 AM EST Hb 9.7 down from 10 6m ago. See hem/onc. IV iron ordered. EGD arranged. Pt refused colonoscopy at visit. MELD 3.0: 13 at 10/29/2024 1:25 PM Calculated from: Serum Creatinine: 1.2 mg/dL at 10/29/2024 1:25 PM Serum Sodium: 141 mmol/L (Using max of 137 mmol/L) at 10/29/2024 1:25 PM Total Bilirubin: 1.7 mg/dL at 10/29/2024 1:25 PM Serum Albumin: 3.2 g/dL at 10/29/2024 1:25 PM INR(ratio): 1.2 at 10/29/2024 1:25 PM Age at listing (hypothetical): 74 years Sex: Male at 10/29/2024 1:25 PM * Viridiana Ortiz CRNP - 10/29/2024 12:26 [...] Renal colic on left side 06/30/2014 admitted [facility], cystoscopy, ureteroscopy, lithrotripsy, with ureteral stent Renal colic on right side 03/14/2014 [facility] ER had distal R ureter stones, largest 11 mm Tinea pedis Tinea unguium Past Surgical History: Procedure Laterality Date BIOPSY OF PROSTATE 11/2007 benign, Dr. Rhodes CALCANEOUS FX W/FIXATION 1991 COLONOSCOPY, DIAGNOSTIC (RECTUM) 09/15/2018 adenomatous & hyperplastic polyps, diverticulosis, repeat 5 yrs/COLONOSCOPY FLEXIBLE PROXIMAL DIAGNOSTIC performed by Cheyanne Peña DO at ENDOSCOPY [facility] COLONOSCOPY, DIAGNOSTIC (RECTUM) 07/24/2021 mulitple polyps, rule out malignancy/biopsies show adenocarcinoma, multiple tubular adenoma and tubulovillous adenoma/COLONOSCOPY FLEXIBLE PROXIMAL DIAGNOSTIC performed by Cheyanne Peña DO at ENDOSCOPY [facility] COLORECTAL CANCER SCREEN; NOT AT RISK 06/24/2007 CT ABDOMEN/PELVIS 03/14/2014 liver 21 cm heart enlarged, obstruction calculus in proximal right ureter, at least 4 obstructing calculi in distal right ureter, mod hydronephrosis CYSTOSCOPY/INSERTION OF STENT 07/01/2014 [facility], for left renal stone EGD, FLEXIBLE, DIAGNOSTIC 11/14/2022 esophageal varices / ESOPHAGOGASTRODUODENOSCOPY (EGD), FLEXIBLE, TRANSORAL, DIAGNOSTIC performed byMigeul Burkett MD at ENDOSCOPY [facility] EGD, FLEXIBLE, DIAGNOSTIC 02/19/2023 mild portal gastropathy, eso varices, repeat 1 mo / ESOPHAGOGASTRODUODENOSCOPY (EGD), FLEXIBLE, TRANSORAL, DIAGNOSTIC performed by Sanjuana Baker MD at ENDOSCOPY [facility] EGD, FLEXIBLE, DIAGNOSTIC 03/17/2024 grade I esophageal varices/portal hypertensive gastropathy/recall 6 months/ESOPHAGOGASTRODUODENOSCOPY (EGD), FLEXIBLE, TRANSORAL, DIAGNOSTIC performed by Miguel Burkett MD at ENDOSCOPY [facility] EGD, W/ENDOSCOPIC US 11/14/2022 fatty liver disease / ESOPHAGOGASTRODUODENOSCOPY (EGD), FLEXIBLE, TRANSORAL, ENDOSCOPIC ULTRASOUND performed by Miguel Burkett MD at ENDOSCOPY [facility] KNEE ARTHROSCOPY/MENISCUS REPAIR 07/2003 bilateral REMOVE GALLBLADDER 1994 laparoscopic Social History Socioeconomic History Marital status: Occupational History Occupation: [employer] Tobacco Use Smoking status: Former Current packs/day: [...] Stability Do you currently live in a longterm or have no steady place to sleep [...] records for their visit today. CHEPE Soto [facility] Gastroenterology documented in this encounter Nursing Notes * Kavya Anna, RN - 10/29/2024 12:42 PM EST Chief Complaint Patient presents with NEW PATIENT Liver Disease Pt no longer taking Nadolol documented in this encounter Plan of Treatment Upcoming Encounters Date Type Department Care Team (Latest Contact Info) Description 11/06/2024 1:15 PM EST Imaging Radiology [facility] [address] [place] [address] 11/12/2024 1:30 PM EST Office Visit Cardiology, [facility] 132 [facility] [place] [address] Elisa Jay PA-C [address] [place] [address] 01/13/2025 2:00 PM EDT Office Visit Gastroenterology , [facility] 132 [facility] [place] [address] Viridiana Ortiz CRNP [address] [place] [address] 03/29/2025 2:00 PM EDT Hospital Encounter ENDO [facility], Endoscopy Room [facility] [address] [place] [phone] Lena Parsons MD [address] [place] [address] [place] [address] 03/29/2025 2:00 PM EDT - 03/29/2025 2:30 PM EDT Surgery ENDO [facility], Endoscopy Room [facility] [address] [place] [phone] Lena Parsons MD [address] [place] [address] ESOPHAGOGASTRODUODENOSCOPY (EGD), FLEXIBLE, TRANSORAL, DIAGNOSTIC Scheduled Orders [...] Last Done Comments CKD PHOS USE SMARTSET 73366 1967 DTap/Tdap Vaccines (1 - Tdap) 01/22/1968 [...] Monitoring 09/24/2025 09/24/2024 CKD HGB USE SMARTSET 83634 10/29/202510/29, 10/29/2024, 04/13/2024, Additional history exists Colonoscopy [...] [place] LAB BLOOD ORDERABLES Final Result LABORATORY [place] [address] [place] [address] documented in this encounter Visit Diagnoses Diagnosis [...] elsewhere documented in this encounter Care Teams Husker Operator Relationship Specialty Start Date End Date Donovan Ruvalcaba CRNP [address] [place] [address] PCP - General Nurse Practitioner 03/20/24 documented as of this encounter
--- OUTSIDE RECORDS SUMMARY | 2024-12-05 11:21 | External Medical Summary | Summary of Care ---
Author Name Unknown Organization [facility] Address [address] [place] [address] Phone [phone] Care Team Providers Care Disability Benefits Specialist Name Role Phone Donovan Ruvalcaba Primary Care Provide r Reason for Visit * Reason Onset Date Comments Test Results Lab 10/30/2024 Gregoria Encounter Details Date Type Department Care Team (Late st Contact Info) Description 10/30/2024 Telephone Hematology/Oncology [facility] [place] [address] [facility] [phone] Bette Ortiz CRNP [address] [place] [address] Test Results Lab (Gregoria) Allergies [...] on left side 06/30/2014 Overview (07/09/2014): admitted [facility], cystoscopy, ureteroscopy, lithrotripsy, with ureteral stent [...] Industry Job Start Date Job End Date [employer] Not on file Not on file Not [...] Imaging Radiology [facility] 132 [facility] [place] [phone] 11/09/2024 1:30 PM EST Hem/Onc Treatment Hematology/Oncol [facility] [address] [facility] [phone] Cassidy, Chair 8 Hem Onc [address] [place] [address] 11/12/2024 1:30 PM EST Office Visit Cardiology, [facility] 132 [facility] [place] [address] Elisa Jay PA-C [address] [place] [id number] 11/17/2024 12:00 PM EST Office Visit Hematology/Oncol [facility] [address] [facility] [phone] Bette Ortiz CRNP [address] [place] [address] 01/13/2025 2:00 PM EDT Office Visit Gastroenterology , [facility] [address] [place], [place] [address] Viridiana Ortiz CRNP [address] [place], [place] [address] 03/29/2025 2:00 PM EDT Hospital Encounter ENDO [facility], Endoscopy Room [facility] 132 [facility] [place], [place] [phone] Lena Parsons MD [facility] [address] [place] [address] 03/29/2025 2:00 PM EDT - 03/29/2025 2:30 PM EDT Surgery ENDO [facility], [facility] [place] [phone] Lena Parsons MD [address] [place] [address] ESOPHAGOGASTRODUODENOSCOPY (EGD), FLEXIBLE, TRANSORAL, DIAGNOSTIC Scheduled Procedures Name Priority Associated Diagnoses Date/Ti nv ESOPHAGOGASTRODUODENOSCOPY ( EGD), FLEXIBLE, TRANSORAL, DIAGNOSTIC 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) Secondary esophageal varices without bleeding (HCC) 03/29/2025 2:00 PM EDT Health Maintenance Due Date Last Done Comments CKD PHOS USE SMARTSET 67548 1967 DTap/Tdap Vaccines (1 - Tdap) 01/22/1968 [...] Monitoring 09/24/2025 09/24/2024 CKD HGB USE SMARTSET 05946 10/29/202510/29, 10/29/2024, 04/13/2024, Additional history exists Colonoscopy [...] elsewhere documented in this encounter Care Teams Disability Benefits Specialist Relationship Specialty Start Date End Date Donovan Ruvalcaba CRNP [address] [place] [address] PCP - General Nurse Practitioner 03/20/24 documented as of this encounter
--- OUTSIDE RECORDS SUMMARY | 2024-12-05 11:21 | External Medical Summary | Summary of Care ---
Author Name Unknown Organization [facility] Address [address] [place] [address] Phone [phone] Care Team Providers Care Bullet Slugs Inspector Name Role Phone Donovan Ruvalcaba Primary Care Provide r Reason for Visit * Reason Comments NEW PATIENT Liver Disease * Evaluate & Treat - Unlimited Visits (Within 30 days (routine)) - Authorized Specialty Diagnoses / Procedures Referred By Radha viera Referred To Contact Gastroenterology Diagnoses Nausea with vomiting, unspecified Donovan Ruvalcaba CRNP [address] [place] [address] Phone: tel: fax: Referral ID Status Reason Start Date Expiration Date Visits Requested Visits Authorized [id number] Authorized Specialty Services Required 05/20/2024 02/10/[phone] Encounter Details Date Type Department Care Team (Latest Contact Info) Description 10/29/2024 12:00 PM EST Office Visit Gastroenterology, [facility] [address] [address] Viridiana Ortiz CRNP [address] [address] 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) [...] left side 06/30/2014 Overview (07/09/2014): admitted [facility], cystoscopy, ureteroscopy, lithrotripsy, with ureteral stent [...] Does the household have a [facility] income? (Household - for ages [...] Industry Job Start Date Job End Date [employer] Not on file Not on file Not [...] legs. These medicines were sent to the [place] pharmacy. Please get your blood tests done [...] colic on left side 06/30/2014 admitted [facility], cystoscopy, ureteroscopy, lithrotripsy, with ureteral stent Renal colic on right side 03/14/2014 [facility] ER had distal R ureter stones, largest 11 mm Tinea pedis Tinea unguium Past Surgical History: Procedure Laterality Date BIOPSY OF PROSTATE 11/2007 benign, Dr. Rhodes CALCANEOUS FX W/FIXATION 1991 COLONOSCOPY, DIAGNOSTIC (RECTUM) 09/15/2018 adenomatous & hyperplastic polyps, diverticulosis, repeat 5 yrs/COLONOSCOPY FLEXIBLE PROXIMAL DIAGNOSTIC performed by Cheyanne Peña DO at ENDOSCOPY [facility] COLONOSCOPY, DIAGNOSTIC (RECTUM) 07/24/2021 mulitple polyps, rule out malignancy/biopsies show adenocarcinoma, multiple tubular adenoma and tubulovillous adenoma/COLONOSCOPY FLEXIBLE PROXIMAL DIAGNOSTIC performed by Cheyanne Peña DO at ENDOSCOPY [facility] COLORECTAL CANCER SCREEN; NOT AT RISK 06/24/2007 CT ABDOMEN/PELVIS 03/14/2014 liver 21 cm heart enlarged, obstruction calculus in proximal right ureter, at least 4 obstructing calculi in distal right ureter, mod hydronephrosis CYSTOSCOPY/INSERTION OF STENT 07/01/2014 [facility], for left renal stone EGD, FLEXIBLE, DIAGNOSTIC 11/14/2022 esophageal varices / ESOPHAGOGASTRODUODENOSCOPY (EGD), FLEXIBLE, TRANSORAL, DIAGNOSTIC performed byMiguel Burkett MD at ENDOSCOPY [facility] EGD, FLEXIBLE, DIAGNOSTIC 02/19/2023 mild portal gastropathy, eso varices, repeat 1 mo / ESOPHAGOGASTRODUODENOSCOPY (EGD), FLEXIBLE, TRANSORAL, DIAGNOSTIC performed by Sanjuana Baker MD at ENDOSCOPY [facility] EGD, FLEXIBLE, DIAGNOSTIC 03/17/2024 grade I esophageal varices/portal hypertensive gastropathy/recall 6 months/ESOPHAGOGASTRODUODENOSCOPY (EGD), FLEXIBLE, TRANSORAL, DIAGNOSTIC performed by Miguel Burkett MD at ENDOSCOPY [facility] EGD, W/ENDOSCOPIC US 11/14/2022 fatty liver disease / ESOPHAGOGASTRODUODENOSCOPY (EGD), FLEXIBLE, TRANSORAL, ENDOSCOPIC ULTRASOUND performed by Miguel Burkett MD at ENDOSCOPY [facility] KNEE ARTHROSCOPY/MENISCUS REPAIR 07/2003 bilateral REMOVE GALLBLADDER 1994 laparoscopic Social History Socioeconomic History Marital status: Occupational History Occupation: [employer] Tobacco Use Smoking status: Former Current packs/day: [...] records for their visit today. CHEPE Soto [facility] Gastroenterology documented in this encounter Nursing Notes * Kavya Anna, RN - 10/29/2024 12:42 PM EST Chief Complaint Patient presents with NEW PATIENT Liver Disease Pt no longer taking Nadolol documented in this encounter Plan of Treatment Upcoming Encounters Date Type Department Care Team (Latest Contact Info) Description 11/06/2024 1:15 PM EST Imaging Radiology [facility] [address] [place] [address] 11/12/2024 1:30 PM EST Office Visit Cardiology, [facility] 132 [facility] [place] [address] Elisa aJy PA-C [address] [place] [address] 01/13/2025 2:00 PM EDT Office Visit Gastroenterology , [facility] 132 [facility] [place] [address] Viridiana Ortiz CRNP [address] [place] [address] 03/29/2025 2:00 PM EDT Hospital Encounter ENDO [facility], Endoscopy Room [facility] [address] [place] [phone] Lena Parsons MD [address] [place] [address] [place] [address] 03/29/2025 2:00 PM EDT - 03/29/2025 2:30 PM EDT Surgery ENDO [facility], Endoscopy Room [facility] [address] [place] [phone] Lena Parsons MD [address] [place] [address] ESOPHAGOGASTRODUODENOSCOPY (EGD), FLEXIBLE, TRANSORAL, DIAGNOSTIC Scheduled Orders [...] Last Done Comments CKD PHOS USE SMARTSET 66103 1967 DTap/Tdap Vaccines (1 - Tdap) 01/22/1968 [...] Monitoring 09/24/2025 09/24/2024 CKD HGB USE SMARTSET 82533 10/29/202510/29, 10/29/2024, 04/13/2024, Additional history exists Colonoscopy [...] [address] [place] [address] documented in this encounter Visit Diagnoses Diagnosis [...] elsewhere documented in this encounter Care Teams Bullet Slugs Inspector Relationship Specialty Start Date End Date Donovan Ruvalcaba CRNP [address] [place] [address] PCP - General Nurse Practitioner 03/20/24 documented as of this encounter
--- OUTSIDE RECORDS SUMMARY | 2024-12-05 11:21 | External Medical Summary | Summary of Care ---
Author Name Unknown Organization [facility] Address [address] [place] [address] Phone [phone] Care Team Providers Care Business Continuity Specialist Name Role Phone Donovan Ruvalcaba Primary Care Provide r Reason for Visit * Reason Comments NEW PATIENT Liver Disease * Evaluate & Treat - Unlimited Visits (Within 30 days (routine)) - Authorized Specialty Diagnoses / Procedures Referred By Radha viera Referred To Contact Gastroenterology Diagnoses Nausea with vomiting, unspecified Donovan Ruvalcaba CRNP [address] [place] [address] Phone: tel: fax: Referral ID Status Reason Start Date Expiration Date Visits Requested Visits Authorized [id number] Authorized Specialty Services Required 05/20/2024 02/10/[phone] Encounter Details Date Type Department Care Team (Latest Contact Info) Description 10/29/2024 12:00 PM EST Office Visit Gastroenterology, [facility] [address] [address] Viridiana Ortiz CRNP [address] [address] 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) [...] No 09/24/2024 Does the household have a [facility] source of income? (Household - [...] Industry Job Start Date Job End Date [employer] Not on file Not on file Not [...] legs. These medicines were sent to the [place] pharmacy. Please get your blood tests done [...] colic on left side 06/30/2014 admitted [facility], cystoscopy, ureteroscopy, lithrotripsy, with ureteral stent Renal colic on right side 03/14/2014 [facility] ER had distal R ureter stones, largest 11 mm Tinea pedis Tinea unguium Past Surgical History: Procedure Laterality Date BIOPSY OF PROSTATE 11/2007 benign, Dr. Rhodes CALCANEOUS FX W/FIXATION 1991 COLONOSCOPY, DIAGNOSTIC (RECTUM) 09/15/2018 adenomatous & hyperplastic polyps, diverticulosis, repeat 5 yrs/COLONOSCOPY FLEXIBLE PROXIMAL DIAGNOSTIC performed by Cheyanne Peña DO at ENDOSCOPY [facility] COLONOSCOPY, DIAGNOSTIC (RECTUM) 07/24/2021 mulitple polyps, rule out malignancy/biopsies show adenocarcinoma, multiple tubular adenoma and tubulovillous adenoma/COLONOSCOPY FLEXIBLE PROXIMAL DIAGNOSTIC performed by Cheyanne Peña DO at ENDOSCOPY [facility] COLORECTAL CANCER SCREEN; NOT AT RISK 06/24/2007 CT ABDOMEN/PELVIS 03/14/2014 liver 21 cm heart enlarged, obstruction calculus in proximal right ureter, at least 4 obstructing calculi in distal right ureter, mod hydronephrosis CYSTOSCOPY/INSERTION OF STENT 07/01/2014 [facility], for left renal stone EGD, FLEXIBLE, DIAGNOSTIC 11/14/2022 esophageal varices / ESOPHAGOGASTRODUODENOSCOPY (EGD), FLEXIBLE, TRANSORAL, DIAGNOSTIC performed byMiguel Burkett MD at ENDOSCOPY [facility] EGD, FLEXIBLE, DIAGNOSTIC 02/19/2023 mild portal gastropathy, eso varices, repeat 1 mo / ESOPHAGOGASTRODUODENOSCOPY (EGD), FLEXIBLE, TRANSORAL, DIAGNOSTIC performed by Sanjuana Baker MD at ENDOSCOPY [facility] EGD, FLEXIBLE, DIAGNOSTIC 03/17/2024 grade I esophageal varices/portal hypertensive gastropathy/recall 6 months/ESOPHAGOGASTRODUODENOSCOPY (EGD), FLEXIBLE, TRANSORAL, DIAGNOSTIC performed by Miguel Burkett MD at ENDOSCOPY [facility] EGD, W/ENDOSCOPIC US 11/14/2022 fatty liver disease / ESOPHAGOGASTRODUODENOSCOPY (EGD), FLEXIBLE, TRANSORAL, ENDOSCOPIC ULTRASOUND performed by Miguel Burkett MD at ENDOSCOPY [facility] KNEE ARTHROSCOPY/MENISCUS REPAIR 07/2003 bilateral REMOVE GALLBLADDER 1994 laparoscopic Social History Socioeconomic History Marital status: Occupational History Occupation: [employer] Tobacco Use Smoking status: Former Current packs/day: [...] Stability Do you currently live in a nursing home or have no steady place to sleep [...] records for their visit today. CHEPE Soto [facility] Gastroenterology documented in this encounter Nursing Notes * Kavya Anna RN - 10/29/2024 12:42 PM EST Chief Complaint Patient presents with NEW PATIENT Liver Disease Pt no longer taking Nadolol documented in this encounter Plan of Treatment Upcoming Encounters Date Type Department Care Team (Latest Contact Info) Description 11/06/2024 1:15 PM EST Imaging Radiology [address] [place] [phone] 11/12/2024 1:30 PM EST Office Visit Cardiology, [address] [place] [address] Elisa Jay PA-C [address] [place] [address] [phone] 01/13/2025 2:00 PM EDT Office Visit Gastroenterology , [facility] [address] [place] [address] Viridiana Ortiz CRNP [address] [place] [address] 03/29/2025 2:00 PM EDT Hospital Encounter ENDO O[facility], Endoscopy Room [facility] [address] [place] [phone] Lena Parsons MD [address] [address] 03/29/2025 2:00 PM EDT - 03/29/2025 2:30 PM EDT Surgery ENDO [facility], Endoscopy Room [facility] [address] [place] [address] Lena Parsons MD [address] [place] [id number] ESOPHAGOGASTRODUODENOSCOPY (EGD), FLEXIBLE, TRANSORAL, DIAGNOSTIC Scheduled Orders [...] Last Done Comments CKD PHOS USE SMARTSET 92473 1967 DTap/Tdap Vaccines (1 - Tdap) 01/22/1968 [...] Monitoring 09/24/2025 09/24/2024 CKD HGB USE SMARTSET 71509 10/29/202510/29, 10/29/2024, 04/13/2024, Additional history exists Colonoscopy [...] Final Result LABORATORY [place] [address] [facility] [address] documented in this encounter Visit Diagnoses Diagnosis [...] elsewhere documented in this encounter Care Teams Business Continuity Specialist Relationship Specialty Start Date End Date Donovan Ruvalcaba CRNP [address] [facility], [place] [address] PCP - General Nurse Practitioner 03/20/24 documented as of this encounter
--- OUTSIDE RECORDS SUMMARY | 2024-12-05 11:21 | External Medical Summary | Summary of Care ---
Author Name Unknown Organization [facility] Address [address] [facility] [address] Phone [phone] Care Team Providers Care Log Hauler Name Role Phone Donovan Ruvalcaba Primary Care Provide r Encounter Details Date Type Department Care Team (Late st Contact Info) Description 10/30/2024 Telephone Hematology/Oncology [facility] [place] [address] [facility] [phone] Bette Ortiz CRNP [address] [facility] [place] [address] Allergies Active Allergy Reactions Criticality Noted Date Comments Iodinated Contrast Media High 07/13/2021 MRI Other Reaction(s): Vomiting Quinolones Unknown 04/08/1998 ? yrs. ago? documented as of this encounter (statuses as of 10/30/2024) Medications ONE TOUCH LANCETS MISCIndications:D M type 2, not at goal ([facility]) as directed 100 5 2 Active ONE TOUCH STRP VIIndications:DM type 2, not at goal ([facility]) once daily 50 5 7 Active [...] on left side 06/30/2014 Overview (07/09/2014): admitted [facility], cystoscopy, ureteroscopy, lithrotripsy, with ureteral stent DYSLIPIDEMIA, [...] Job Start Date Job End Date [employer] Not on file Not on file Not on file documented as of this encounter Miscellaneous Notes * Telephone Encounter - Bette OrtizCHEPE - 10/30/2024 11:02 AM EST Results for [...] Description 11/06/2024 1:15 PM EST Imaging Radiology [facility] 132 [facility] [place] [phone] 11/12/2024 1:30 PM EST Office Visit Cardiology, [address] [place] [address] Elisa Jay PA-C [address] [facility] [place] [address] 01/13/2025 2:00 PM EDT Office Visit Gastroenterology , [facility] [address] [place] [address] Viridiana Ortiz CRNP [address] [place] [address] 03/29/2025 2:00 PM EDT Hospital Encounter ENDO [facility], [facility] [place] [phone] Lena Parsons MD 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
--- OUTSIDE RECORDS SUMMARY | 2024-12-05 11:21 | External Medical Summary | Summary of Care ---
Author Name Unknown Organization [facility] Address [address] [place] [facility] [place] [address] Phone [phone] Care Team Providers Care Skills Auditor Name Role Phone Donovan Ruvalcaba Primary Care Provide r Reason for Visit * Reason Comments IV Therapy Venofer 09/18 Encounter Details Date Type Department Care Team (Latest Contact Info) Description 11/09/2024 1:30 PM EST Hem/Onc Treatment Hematology/Oncology Treatment, [place] [address] [place] [address] Cassidy, Chair 8 Hem Onc [facility] 200 [place] [address] Iron deficiency anemia due to chronic blood loss* Allergies Active Allergy Reactions Criticality Noted Date Comments Iodinated Contrast Media High 07/13/2021 MRI Other Reaction(s): Vomiting Quinolones Unknown 04/08/1998 ? yrs. ago? documented as of this encounter (statuses as of 11/11/2024) Medications ONE TOUCH LANCETS MISCIndications:D M type [...] as of this encounter (statuses as of 11/11/2024) Active Problems Problem Noted Date Diagnosed Date [...] on left side 06/30/2014 Overview (07/09/2014): admitted [facility], cystoscopy, ureteroscopy, lithrotripsy, with ureteral stent DYSLIPIDEMIA, [...] as of this encounter (statuses as of 11/11/2024) Resolved Problems Problem Noted Date Diagnosed Date [...] as of this encounter (statuses as of 11/11/2024) Immunizations Name Administration Dates Next Due Pneumococcal [...] Job Start Date Job End Date [employer] Not on file Not on file Not [...] 11/12/2024 1:30 PM EST Office Visit Cardiology, [facility] 132 [facility] [place] [address] Elisa Jay PA-C [address] [place] [address] 11/16/2024 2:30 PM EST [facility] 200 [place] [phone] Cassidy, Chair 8 Hem Onc [address] [place] [address] 11/17/2024 12:00 PM EST Office Visit Hematology/Oncol ogy [facility] [phone] Bette Ortiz CRNP [address] [place] [address] 01/13/2025 2:00 PM EDT Office Visit Gastroenterology , [facility] 132 [facility] [place] [address] Viridiana Ortiz CRNP 132 [facility] [place] [address] 03/29/2025 2:00 PM EDT Hospital Encounter ENDO [facility], Endoscopy Room [facility] [address] [place] [phone] Lena Parsons MD [address] [place] [address] [place] [address] 03/29/2025 2:00 PM EDT - 03/29/2025 2:30 PM EDT Surgery ENDO [facility], Endoscopy Room [facility] [address] [place] [address] Lena Parsons MD [address] [place] [address] ESOPHAGOGASTRODUODENOSCOPY (EGD), FLEXIBLE, TRANSORAL, DIAGNOSTIC Scheduled Procedures Name Priority Associated Diagnoses Date/Ti me ESOPHAGOGASTRODUODENOSCOPY ( EGD), FLEXIBLE, TRANSORAL, DIAGNOSTIC 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) Secondary esophageal varices without bleeding (HCC) 03/29/2025 2:00 PM EDT Health Maintenance Due Date Last Done Comments CKD PHOS USE SMARTSET 58398 1968 DTap/Tdap Vaccines (1 - Tdap) 01/22/1968 [...] Monitoring 09/24/2025 09/24/2024 CKD HGB USE SMARTSET 01504 10/29/202510/29, 10/29/2024, 04/13/2024, Additional history exists Colonoscopy [...] mL/hr documented in this encounter Care Teams Skills Auditor Relationship Specialty Start Date End Date Donovan Ruvalcaba CRNP [address] [place] [address] PCP - General Nurse Practitioner 03/20/24 documented as of this encounter
--- OUTSIDE RECORDS SUMMARY | 2024-12-05 11:22 | External Medical Summary ---
Author Name Unknown Address Unknown Organization [facility] [facility] [address] [place] [address] Laboratory Report Ordering Provider Test Date Status HAO HUERTAS 10/29/2024 13:25:25 Final Observation Date Value Abnormality Reference (Units ) Status WBC, Total 10/29/2024 13:25:25 4.40 4.00-10.8 0 (K/uL) Final RBC 10/29/2024 13:25:25 3.45 4.50-5.25 (M/uL) Final Hemoglobin 10/29/2024 13:25:25 8.7 Below low normal 14 .0-16.8 (g/dL) Final HCT 10/29/2024 13:25:25 29.4 Below low normal 40. 0-48.4 (%) Final MCV 10/29/2024 13:25:25 85.2 82.0-99.5 (fL) Final MCH 10/29/2024 13:25:25 25.2 27.0-34.0 (pg) Final MCHC 10/29/2024 13:25:25 29.6 32.0-36.0 (g/dL) Final RDW 10/29/2024 13:25:25 21.1 11.5-15.5 (%) Final Platelets 10/29/2024 13:25:25 117 Below low normal 140 -400 (K/uL) Final MPV 10/29/2024 13:25:25 8.7 6.6-11.1 ( fL) Final Performing Location LABORATORY [facility] 57-[address] 0 - [address] [place] [address]
--- OUTSIDE RECORDS SUMMARY | 2024-12-05 11:22 | External Medical Summary ---
Author Name Unknown Address Unknown Organization K0G:[facility]ORY [place] 57-[address] - [address] [place] [address] Laboratory Report Ordering Provider Test Date Status HAO LYNN 10/29/2024 13:25:25 Final Warfarin Therapy
INR: 2 .0-3.0 conventional anticoagulation
INR: 2.5- 3.5 high intensity anticoagulation Observation Date Value Abnormality Reference (Units ) Status PT 10/29/2024 13:25:25 15.3 Above high normal 11 .6-15.2 (seconds) Final INR 10/29/2024 13:25:25 1.2 0.8-1.2 Final Performing Location LABORATORY [place] 57-[address] 0 - [address] [place] [address]
--- OUTSIDE RECORDS SUMMARY | 2024-12-05 11:22 | External Medical Summary ---
Author Name Unknown Address Unknown Organization K01:LABORATORY C - [address] [place] [address] Laboratory Report Ordering Provider Test Date Status KIYAHAO 10/29/2024 13:25:25 Final Observation Date Value Abnormality Reference (Units ) Status Ferritin 10/29/2024 13:25:25 44 30-400 (ng /mL) Final Performing Location LABORATORY [facility] - [address] [place] [address]
--- OUTSIDE RECORDS SUMMARY | 2024-12-05 11:22 | External Medical Summary | Summary of Care ---
Author Name Unknown Organization [facility] Address [address] [facility] [place] [address] Phone [phone] Care Team Providers Care Director Medicaid Name Role Phone Donovan Ruvalcaba Primary Care Provide r Encounter Details Date Type Department Care Team (Late st Contact Info) Description 10/05/2024 Population Health External Data Unspecified Department Allergies Active Allergy Reactions Criticality Noted Date Comments Iodinated Contrast Media High 07/13/2021 MRI Other Reaction(s): Vomiting Quinolones Unknown 04/08/1998 ? yrs. ago? documented as of this encounter (statuses as of 10/05/2024) Medications ONE TOUCH LANCETS MISCIndications:D M type [...] as of this encounter (statuses as of 10/05/2024) Active Problems Problem Noted Date Diagnosed Date [...] Overview (07/09/2014): admitted [facility], cystoscopy, [...] as of this encounter (statuses as of 10/05/2024) Resolved Problems Problem Noted Date Diagnosed Date [...] as of this encounter (statuses as of 10/05/2024) Immunizations Name Administration Dates Next Due Pneumococcal [...] ages 0-17 years) Not on file 09/24/2024 Sex and Gender Information Value Date Recorded Sex Assigned at Not on file Legal Sex Male 5:24 AM EST Gender Identity Not on file Sexual Orientation Not on file Occupation Industry Job Start Date Job End Date [employer] Not on file Not on file Not on file documented as of this encounter Plan of Treatment Upcoming Encounters Date Type Department Care Team (Late st Contact Info) Description 10/13/2024 3:00 PM EST Laboratory Laboratory [facility] [address] [place] [phone] [facility] 200 [facility] [place] [address] 10/13/2024 4:00 PM EST Office Visit Hematology/Oncology [facility] [address] [place] [phone] Bette Ortiz CRNP 400 [facility] [place] [id number] 10/29/2024 12:00 PM EST Office Visit Gastroenterology, [facility] [address] Viridiana [facility]iz CRNP [facility] [address] 11/12/2024 1:30 PM EST Office Visit Cardiology, [facility] 132 [facility] [place] [address] Elisa Jay PA-C 400 [facility] [place] [address] Health Maintenance Due Date Last Done Comments CKD PHOS USE SMARTSET 58351 1967 DTap/Tdap Vaccines (1 - Tdap) 01/22/1968 Albumin/Creatinine Ratio 01/18/2010 009, 10/28/2006, 04/26/2006, Additional history exists Diabetic Foot Exam 03/18/2015 03/18/2014, 0 01/18/2009, 05/22/2007 HbA1c 11/26/2023 05/28/2023, 08/0 09/2022, 09/18/2007, Additional history exists *COPD SEVERITY VERIFIED BY PFT 04/30/2024 COVID-19 Vaccine ( season) 2024 GFR 10/14/2024 04/13/2024, 09/17, 07/22/2023, Additional history exists Diabetic Eye Exam 12/16/2024 12/17/2023, 07/19/2007 O2 ASSESSMENT COMPLETED IN PAST YEAR FOR COPD 03/17/2025 03/17/2024 CKD HGB USE SMARTSET 97136 04/13/202504/13, 04/13/2024, 10/14/2023, Additional history exists Depression Monitoring 09/24/2025 09/24/2024 Colonoscopy 07/24/2026 07/24/2021, 04/2021, 09/15/2018, Additional history [...] filedocumented as of this encounter Care Teams Director Medicaid Relationship Specialty Start Date End Date Donovan Ruvalcaba CRNP [address] [facility], [place] [address] PCP - General Nurse Practitioner 03/20/24 documented as of this encounter
--- OUTSIDE RECORDS SUMMARY | 2024-12-05 11:22 | External Medical Summary ---
Author Name Unknown Address Unknown Organization K01:LABORATORY [facility] - [address] [place] [address] Laboratory Report Ordering Provider Test Date Status HAO HUERTAS 10/29/2024 13:25:25 Final Observation Date Value Abnormality Reference (Units ) Status CEA 10/29/2024 13:25:25 3.2 <=5.2 (ng/ mL) Final Performing Location LAB[facility]ATORY [facility] - [address] [place] [address]
--- OUTSIDE RECORDS SUMMARY | 2024-12-05 11:22 | External Medical Summary | Summary of Care ---
Author Name Unknown Organization [facility] Address [address] [place] [address] Phone [phone] Care Team Providers Care Steam Hoist Operator Name Role Phone Donovan Ruvalcaba Primary Care Provide r Encounter Details Date Type Department Care Team (Late st Contact Info) Description 10/22/2024 Result Scan Unspecified Department Lorenza Parnell, DO 400 [facility] [place] [address] [address] <No scans attached> Allergies Active Allergy Reactions Criticality Noted Date Comments Iodinated Contrast Media High 07/13/2021 MRI Other Reaction(s): Vomiting Quinolones Unknown 04/08/1998 ? yrs. ago? 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 goal ([facility]) as directed 100 5 2 Active ONE TOUCH STRP VIIndications:DM type 2, not at goal ([facility]) once daily 50 5 7 Active [...] as of this encounter (statuses as of 10/22/2024) Active Problems Problem Noted Date Diagnosed Date [...] Comment: abnormal nuclear 2018 Entered By: LASHELL ILU PA-C Comment: no further cardiac testing per [...] left side 06/30/2014 Overview (07/09/2014): admitted [facility], cystoscopy, ureteroscopy, lithrotripsy, with ureteral stent [...] as of this encounter (statuses as of 10/22/2024) Resolved Problems Problem Noted Date Diagnosed Date [...] as of this encounter (statuses as of 10/22/2024) Immunizations Name Administration Dates Next Due Pneumococcal [...] Job Start Date Job End Date [email or web address] Not on file Not on file Not on file documented as of this encounter Plan of Treatment Upcoming Encounters Date Type Department Care Team (Late st Contact Info) Description 10/29/2024 12:00 PM EST Office Visit Gastroenterology, [facility] [address] [place] [address] Viridiana Ortiz CRNP 132 [facility] [place] [address] 11/12/2024 1:30 PM EST Office Visit Cardiology, [facility] 132 [facility] [place] [address] Elisa Jay PA-C [address] [place] [address] [place] [address] Health Maintenance Due Date Last Done Comments CKD PHOS USE SMARTSET 83947 1968 DTap/Tdap Vaccines (1 - Tdap) 01/22/1968 [...] COPD 03/17/2025 03/17/2024 CKD HGB USE SMARTSET 59818 04/13/202504/13, 04/13/2024, 10/14/2023, Additional history exists Depression [...] Date/Time Associated Diagnosis Comments CARDIOLOGY SCANNED RESULT 10/22/2024 documented in this encounter Results * CARDIOLOGY SCANNED RESULT (10/22/2024) 10/22/2024 Lorenza Parnell DO OTHER Final R esult documented in this encounter Care Teams Steam Hoist Operator Relationship Specialty Start Date End Date Donovan Ruvalcaba CRNP [address] [place] [address] PCP - General Nurse Practitioner 03/20/24 documented as of this encounter
--- OUTSIDE RECORDS SUMMARY | 2024-12-05 11:22 | External Medical Summary ---
Author Name Unknown Address Unknown Organization K0G:LABORATORY [place] 57-[address] - [address] [place] [address] Laboratory Report Ordering Provider Test Date Status HAO HUERTAS 10/29/2024 13:25:25 Final Observation Date Value Abnormality Reference (Units ) Status SYNC LEUKOCYTES IN BLOOD BY AUTOMATED COUNT 10/29/2024 13:25:25 4.40 4.00-10.80 (K/uL) Final Segs 10/29/2024 13:25:25 73.0 40.0-75.0 (%) Final Lymphs % 10/29/2024 13:25:25 15.7 Below low normal 18.0-42.0 (%) Final Monos 10/29/2024 13:25:25 7.0 1.0-11.0 (%) Final Eosinophils 10/29/2024 13:25:25 3.4 0.0-6.0 (%) Final Basos 10/29/2024 13:25:25 0.9 0.0-2.0 (%) Final Absolute Segs 10/29/2024 13:25:25 3.21 1.80-7.70 (K/uL) Final Lymphs, absolute 10/29/2024 13:25:25 0.69 Below low normal 1.00-4.80 (K/ul) Final Monos, Abs 10/29/2024 13:25:25 0.31 0.00-1.10 (K/uL) Final Eos, Abs 10/29/2024 13:25:25 0.15 0.00-0.70 (K/uL) Final Basos, Abs 10/29/2024 13:25:25 0.04 0.00-0.20 (K/uL) Final Performing Location LABORATORY [place] 57-[address] - [address] [place] [address]
--- OUTSIDE RECORDS SUMMARY | 2024-12-05 11:22 | External Medical Summary ---
Author Name Unknown Address Unknown Organization K0G:[facility]ATORY [place] 57-[address] - [address] [place] [address] Laboratory Report Ordering Provider Test Date Status HAO HUERTAS 10/29/2024 13:25:25 Final Observation Date Value Abnormality Reference (Units ) Status Nucleated erythrocytes/100 leukocytes [Ratio] in Blood by Automated count 10/29/2024 13:25:25 Final Schistocytes 10/29/2024 13:25:25 Few Abnormal None Seen Final Performing Location [facility]ORY [place] 57-[address] 0 - [address] [place] [address]
--- OUTSIDE RECORDS SUMMARY | 2024-12-05 11:22 | External Medical Summary ---
Author Name Unknown Address Unknown Organization K01:LABORATORY [facility] - [address] [place] [address] Laboratory Report Ordering Provider Test Date Status HAO HUERTAS 10/29/2024 13:25:25 Final Observation Date Value Abnormality Reference (Units ) Status Iron 10/29/2024 13:25:25 18 Below low normal 45-176 (ug/dL) Final Iron-binding capacity 10/29/2024 13:25:25 420 250-425 (ug/dL) Final Transferrin Sat % 10/29/2024 13:25:25 4 Below low normal 15-55 (%) Final Performing Location LABORATORY C - [address] [place] [address]
--- OUTSIDE RECORDS SUMMARY | 2024-12-05 11:22 | External Medical Summary ---
Author Name Unknown Address Unknown Organization K0G:LABORATORY [place] 57-[address] - [address] [place] [address] Laboratory Report Ordering Provider Test Date Status HAO HUERTAS 10/29/2024 13:25:25 Final Observation Date Value Abnormality Reference (Units ) Status BUN 10/29/2024 13:25:25 14 6-20 (mg/dL) Final Creatinine 10/29/2024 13:25:25 1.2 0.6-1.2 (mg/dL) Final Glomerular filtration rate/1.73 sq M.predicted [Volume Rate/Area] in Serum, Plasma or Blood by Creatinine-based formula (CKD-EPI) 10/29/2024 13:25:25 62 >=60 (mL/min) Final eGFR is calculated based on the CKD-EPI 2020 equation. Sodium 10/29/2024 13:25:25 141 135-146 (m mol/L) Final Potassium 10/29/2024 13:25:25 4.0 3.5-5.1 (m mol/L) Final Cl 10/29/2024 13:25:25 104 98-107 (mm ol/L) Final CO2 10/29/2024 13:25:25 29 22-32 (mmo l/L) Final Anion gap 10/29/2024 13:25:25 8 7-15 (mmol /L) Final Glucose 10/29/2024 13:25:25 75 70-120 (mg /dL) Final Albumin 10/29/2024 13:25:25 3.2 Below low normal 3.8 -5.0 (g/dL) Final AST (Aspartate aminotransferase) 10/29/2024 13:25:25 55 Above high normal 10-50 (U/L) Final Alk Phos 10/29/2024 13:25:25 223 Above high normal 35 -130 (U/L) Final Bilirubin, Total 10/29/2024 13:25:25 1.7 Above high no rmal <=1.2 (mg/dL) Final Calcium 10/29/2024 13:25:25 8.6 8.4-10.2 ( mg/dL) Final Protein 10/29/2024 13:25:25 5.9 Below low normal 6.0 -8.3 (g/dL) Final ALT (Alanine aminotransferase) 10/29/2024 13:25:25 33 10-50 (U/L) Lei loco Performing Location LABORATORY [place] 57-[address] - [address] [facility] [address]
--- OUTSIDE RECORDS SUMMARY | 2024-12-05 11:22 | External Medical Summary | Summary of Care ---
Author Name Unknown Organization [facility] Address [address] [place] [address] Phone [phone] Care Team Providers Care Toucher Up Name Role Phone Donovan Ruvalcaba Primary Care Provide r Reason for Visit * Reason Comments NEW PATIENT Liver Disease * Evaluate & Treat - Unlimited Visits (Within 30 days (routine)) - Authorized Specialty Diagnoses / Procedures Referred By Radha viera Referred To Contact Gastroenterology Diagnoses Nausea with vomiting, unspecified Donovan Ruvalcaba CRNP [address] [place] [address] Phone: tel: fax: Referral ID Status Reason Start Date Expiration Date Visits Requested Visits Authorized [id number] Authorized Specialty Services Required 05/20/2024 02/10/2025 [id number] Encounter Details Date Type Department Care Team (Latest Contact Info) Description 10/29/2024 12:00 PM EST Office Visit Gastroenterology, [facility] [address] [address] Viridiana Ortiz CRNP [address] [address] 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) [...] on left side 06/30/2014 Overview (07/09/2014): admitted [facility], cystoscopy, ureteroscopy, lithrotripsy, with ureteral stent DYSLIPIDEMIA, [...] No 09/24/2024 Does the household have a [facility] source of income? (Household - for [...] Industry Job Start Date Job End Date [employer] Not on file Not on file Not [...] legs. These [place]. Please get your blood tests done [...] Renal colic on left side 06/30/2014 admitted [facility], cystoscopy, ureteroscopy, lithrotripsy, with ureteral stent Renal colic on right side 03/14/2014 [facility] ER had distal R ureter stones, largest 11 mm Tinea pedis Tinea unguium Past Surgical History: Procedure Laterality Date BIOPSY OF PROSTATE 11/2007 benign, Dr. Rhodes CALCANEOUS FX W/FIXATION 1991 COLONOSCOPY, DIAGNOSTIC (RECTUM) 09/15/2018 adenomatous & hyperplastic polyps, diverticulosis, repeat 5 yrs/COLONOSCOPY FLEXIBLE PROXIMAL DIAGNOSTIC performed by Cheyanne Peña DO at ENDOSCOPY [facility] COLONOSCOPY, DIAGNOSTIC (RECTUM) 07/24/2021 mulitple polyps, rule out malignancy/biopsies show adenocarcinoma, multiple tubular adenoma and tubulovillous adenoma/COLONOSCOPY FLEXIBLE PROXIMAL DIAGNOSTIC performed by Cheyanne Peña DO at ENDOSCOPY [facility] COLORECTAL CANCER SCREEN; NOT AT RISK 06/24/2007 CT ABDOMEN/PELVIS 03/14/2014 liver 21 cm heart enlarged, obstruction calculus in proximal right ureter, at least 4 obstructing calculi in distal right ureter, mod hydronephrosis CYSTOSCOPY/INSERTION OF STENT 07/01/2014 [facility], for left renal stone EGD, FLEXIBLE, DIAGNOSTIC 11/14/2022 esophageal varices / ESOPHAGOGASTRODUODENOSCOPY (EGD), FLEXIBLE, TRANSORAL, DIAGNOSTIC performed byMiguel Burkett MD at ENDOSCOPY [facility] EGD, FLEXIBLE, DIAGNOSTIC 02/19/2023 mild portal gastropathy, eso varices, repeat 1 mo / ESOPHAGOGASTRODUODENOSCOPY (EGD), FLEXIBLE, TRANSORAL, DIAGNOSTIC performed by Sanjuana Baker MD at ENDOSCOPY [facility] EGD, FLEXIBLE, DIAGNOSTIC 03/17/2024 grade I esophageal varices/portal hypertensive gastropathy/recall 6 months/ESOPHAGOGASTRODUODENOSCOPY (EGD), FLEXIBLE, TRANSORAL, DIAGNOSTIC performed by Miguel Burkett MD at ENDOSCOPY [facility] EGD, W/ENDOSCOPIC US 11/14/2022 fatty liver disease / ESOPHAGOGASTRODUODENOSCOPY (EGD), FLEXIBLE, TRANSORAL, ENDOSCOPIC ULTRASOUND performed by Miguel Burkett MD at ENDOSCOPY [facility] KNEE ARTHROSCOPY/MENISCUS REPAIR 07/2003 bilateral REMOVE GALLBLADDER 1994 laparoscopic Social History Socioeconomic History Marital status: Occupational History Occupation: [employer] Tobacco Use Smoking status: Former Current packs/day: [...] Stability Do you currently live in a long term or have no steady place to sleep [...] records for their visit today. CHEPE [facility] Gastroenterology documented in this encounter Nursing Notes * Kavya Anna RN - 10/29/2024 12:42 PM EST Chief Complaint Patient presents with NEW PATIENT Liver Disease Pt no longer taking Nadolol documented in this encounter Plan of Treatment Upcoming Encounters Date Type Department Care Team (Latest Contact Info) Description 11/06/2024 1:15 PM EST Imaging Radiology [address] [place] [phone] 11/12/2024 1:30 PM EST Office Visit Cardiology, [address] [place] [address] Elisa Jay PA-C [address] [place] [address] [phone] 01/13/2025 2:00 PM EDT Office Visit Gastroenterology , [facility] [address] [place] [address] Viridiana Ortiz CRNP [address] [place] [address] 03/29/2025 2:00 PM EDT Hospital Encounter [facility], Endoscopy Room [facility] [address] [place] [phone] Lena Parsons MD [address] [address] 03/29/2025 2:00 PM EDT - 03/29/2025 2:30 PM EDT Surgery [facility], Endoscopy Room [facility] [address] [place] [id number] Lena Parsons MD [address] [place] [id number] ESOPHAGOGASTRODUODENOSCOPY (EGD), FLEXIBLE, TRANSORAL, DIAGNOSTIC Scheduled Orders [...] Last Done Comments CKD PHOS USE SMARTSET 59319 1967 DTap/Tdap Vaccines (1 - Tdap) 01/22/1968 [...] Monitoring 09/24/2025 09/24/2024 CKD HGB USE SMARTSET 88059 10/29/202510/29, 10/29/2024, 04/13/2024, Additional history exists Colonoscopy [...] Final Result [facility] [place] [id number] [facility] [address] documented in this encounter Visit Diagnoses Diagnosis [...] elsewhere documented in this encounter Care Teams Toucher Up Relationship Specialty Start Date End Date Donovan Ruvalcaba CRNP [address] [facility], [place] [address] PCP - General Nurse Practitioner 03/20/24 documented as of this encounter
[2024-12-05] MEDS: oxyCODONE HCL IR 5 MG TAB (IMMEDIATE RELEASE) PO STA (11:57)
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
--- NOTE | 2024-12-05 12:28 | XRay Report ---
XR shoulder RT min 2V routine CLINICAL HISTORY: R shoulder pain s/p fall COMPARISON: None FINDINGS: Alignment of the right shoulder is anatomic. There is no acute fracture. There is moderate acromioclavicular joint osteoarthritis. There is also mild osteophytosis of the glenohumeral joint. Left subclavian pacer leads are partially imaged. Electronic device of the right upper arm is present . IMPRESSION: 1. No fracture or dislocation within the right shoulder. 2. Moderate degenerative changes within the right shoulder. ACT 112: Negative or not required by law. Electronically signed by: Joshua Sinclair M.D. 12/05/2024 12:26 PM
--- NOTE | 2024-12-05 15:08 | CT Scan Report ---
HISTORY: Right shoulder pain. Ground-level fall on , fell onto right side. Did not strike head. EXAM: CT chest diagnostic without contrast Comparison: Portable chest 09/14/2024 FINDINGS: Lung zones remain expanded without pneumothorax or significant pleural effusion. Mild areas of linear atelectasis/fibrosis are seen in both lower lobes similar to the previous study. Otherwise no acute infiltrate or edema is seen at this time. No significant abnormal hilar or mediastinal mass or adenopathy is seen. Left-sided pacemaker is present. Severe coronary artery calcifications are present. No acute bony trauma is identified at the examined levels. IMPRESSION: 1. Negative for acute traumatic abnormalities. 2. Mild areas of atelectasis/scarring/fibrosis in the lower lobes bilaterally. 3. Severe coronary artery calcification. Electronically signed by Chris Jay 12-05-2024 3:07 PM
--- NOTE | 2024-12-05 15:14 | CT Scan Report ---
REASON FOR EXAM: Right shoulder pain. Ground-level fall on .. HISTORY: Right shoulder pain EXAM: CT abdomen/pelvis without contrast Comparison exam: CT abdomen/pelvis 11/03/2021. FINDINGS: Liver remains normal in size but is quite nodular in appearance suggesting chronic hepatic cirrhosis. No definite focal liver lesion seen on unenhanced only images. Spleen is mildly enlarged. Moderate amount of ascites is seen in the upper abdomen. Mild venous prominence suggesting possible early cavernous transformation of the portal vein. Pancreas unremarkable. Clips from cholecystectomy are noted. Adrenal glands are unremarkable. Right kidney shows 5 mm lower pole calculus but no hydronephrosis. Left kidney shows 3 mm lower pole calculus and 4.5 the lower pole cyst but no hydronephrosis. Moderate amount of ascites is also present in the pelvis. No evidence of bowel obstruction or free intraperitoneal air is seen at this time. There is some diffuse thickening of the wall of the urinary bladder with mild prostatic enlargement. Degenerative changes but no acute bony trauma identified at this time. IMPRESSION: 1. Chronic hepatic cirrhosis with evidence of portal venous hypertension including splenomegaly, early cavernous transformation of portal vein and a large amount of abdominal and pelvic ascites. 2. Bilateral renal calculi without hydronephrosis. Left renal cysts. Electronically signed by Chris Jay 12-05-2024 3:14 PM
[2024-12-05 16:43] LABS: Hematocrit (blood only) 36.4 % (42.0-52.0); Hemoglobin 11.4 g/dl (14.0-18.0); Mean Corpuscular Hemoglobin 26.9 pg (25.0-34.0); Mean Corpuscular Hgb Conc 31.3 g/dL (32.0-36.0); Mean Corpuscular Volume 85.8 fL (80.0-100.0); Mean Platelet Volume 9.6 fL (9.4-12.4); Platelet Count 123 K/uL (130-400); RDW Coefficient of Variation 20.9 % (11.5-14.5); RDW Standard Deviation 65.1 fL (36.4-46.3); Red Blood Count 4.24 M/uL (4.70-6.10); White Blood Count 16.13 K/ul (4.8-10.8)
[2024-12-05 16:55] LABS: Albumin Level 3.5 gm/dl (3.4-5.0); Anion Gap 7 (3-11); Bilirubin,Total 3.2 mg/dl (0.2-1.0); Calcium 8.8 mg/dl (8.6-10.3); Carbon Dioxide 27 mmol/L (21-32); Chloride 103 mmol/L (98-107); Potassium 4.5 mmol/L (3.5-5.1); Sodium 137 mmol/L (136-145)
--- NOTE | 2024-12-05 16:58 | History & Physical Report ---
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 Pt reports being non-compliant with diuretic regimen and notes progressive ascites and edema. On work-up in the ED, he was noted to have leukocytosis with WBC count of 16.13, UA pending. Renal function at baseline. Chronic thrombocytopenia related to cirrhosis that is unchanged from baseline. Pt was referred for admission for further work-up and management related to generalized weakness and fall. #Fall #Generalized weakness #Leukocytosis #Right shoulder pain - Admit to med surg - Fall precautions - Place alberto, collect cath UA withe reflex culture - Empiric ceftriaxone for possible UTI, SBP - Labs in the AM - CBC, BMP, LFTs - Lidocaine patch, Myoflex topical to shoulder, prn oxy for severe pain, will give single dose of cyclobenzaprine - PT/OT evaluations #Progressive ascites and peripheral edema #Cirrhosis due to fatty liver - IV furosemide 40 mg today, repeat in the AM and reassess - Alberto as above - Daily weights #Iron deficiency anemia - currently receiving iron infusions through hematology - Continue oral iron supplement - H&H improved from admission in September #DM2 - on Lantus 48 units in the AM, 40 units in the PM - Continue basal insulin but add sliding scale - Glycemic pharmacy consult - Diabetic diet #Depression with hx of suicidal ideations - Continue outpatient medication for now - Consider psychiatry evaluation pending hospital course Pt seen and reviewed with collaborating physician, Dr. Queen. Plan of care discussed and as outlined above. Code status: full code DVT prophylaxis: Lovenox, platelets >100K, no signs of active bleeding Pt's sonCedric, was at the bedside and assists with pt's care. He requests updates from the providers, specifically requesting an accurate list of pt's medications at discharge since he is the one managing those day-to-day. His phone number is [phone]. 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 Pt reports that he was in his usual state of health until a few days ago when he lost his balance and fell at home landing on his right shoulder. No LOC, did not hit head. Since the fall, he notes generalized pain but worst in the right shoulder and describes feeling "terrible." He is not sleeping well with resultant fatigue. He uses a cane for ambulation at baseline but son reports that pt usually has no significant difficulty getting around at home. He also notes back and neck pain since the fall. Appetite is decreased but no N/V. He notes progressive peripheral edema and abdominal distention over the last several days but reports that he is not taking his diuretics as he doesn't like how much they make him urinate, especially if he has somewhere to be outside of the house that day. His son tries to help him with his meds but admits that he isn't sure that he has an accurate list of what the patient is presently caicedo pposed to be taking. Pt is difficult to get a history from and often answers questions with vague, non-specific responses. Allergies Allergy/AdvReac Type Severity Reaction Status Date / Time Iodinated Contrast Media AdvReac Intermediate Vomiting Verified 03/24/24 15:16 Home Medications Medication Instructions Recorded Confirmed Type alfuzosin 10 mg tablet,extended 10 mg PO DAILY #90 tabs 09/21/24 12/05/24 Rx release 24 hr allopurinol 100 mg tablet 100 mg PO QAM #30 tabs 09/21/24 12/05/24 Rx ascorbic acid (vitamin C) 500 mg 250 mg (1/2 x 500 mg) PO DAILY #30 01/06/25 03/22/25 Rx tablet,extended release (Vitamin C tabs ER) atorvastatin 80 mg tablet 80 mg PO HS #30 tabs 09/21/24 12/05/24 Rx empagliflozin 25 mg tablet 25 mg PO QAM #30 tabs 09/21/24 12/05/24 Rx ferrous sulfate 325 mg (65 mg 325 mg PO BID #60 tabs 09/21/24 12/05/24 Rx iron) tablet pantoprazole 40 mg tablet,delayed 40 mg PO DAILY #30 tabs 09/21/24 12/05/24 Rx release cholecalciferol (vitamin D3) 25 50 mcg PO DAILY 12/05/24 12/05/24 History mcg (1,000 unit) tablet escitalopram oxalate 5 mg tablet 10 mg PO DAILY 12/05/24 12/05/24 History insulin glargine 100 unit/mL (3 See Rx Instructions .Route .COMPLEX 12/05/24 12/05/24 History mL) subcutaneous pen (Lantus Solostar U-100 Insulin) Past Med/Surg History Problem List (Updated 12/05/24 @ 21:44 by Sharon Dunaway PA-C) Iron deficiency anemia Generalized weakness (Acute) Abdominal ascites (Acute) Fall from standing (Acute) Acute pain of right shoulder (Acute) Noncompliance with medications (Acute) Obesity Medical History (Updated 12/05/24 @ 21:44 by Sharon Dunaway PA-C) Panic disorder Cirrhosis of liver 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 mellitus Diabetic polyneuropathy Depression due to physical illness Depression with suicidal ideation BPH loc w urin obs/LUTS CHF (congestive heart failure) Paroxysmal atrial fibrillation Colon cancer SOB (shortness of breath) on exertion 1 FLIGHT-"OUT OF SHAPE" Chronic obstructive pulmonary disease History of pulmonary embolus (PE) REMOTE HX / LEG IN A A CAST - NO PROBLEMS SINCE History of kidney stones CKD (chronic kidney disease) stage 3, GFR 30-59 ml/min BMI 34.0-34.9,adult Sleep apnea CPAP/DOESN'T USE Hypertension Dyslipidemia Diabetes mellitus Surgical History (Updated 12/05/24 @ 16:39 by Sharon Dunaway PA-C) Status post cardiac pacemaker procedure S/P colon resection (10/26/21) Laparoscopic Assisted Right Colon Resection, Umbilical Hernia Repair- Singh M. Ramondelli, MD, FACS 10/26/2021 History of esophagogastroduodenoscopy (EGD) (02/19/23) Dr. Baker History of colonoscopy 2020 History of total right knee replacement Hx of repair of rotator cuff R&L Hx of foot surgery LEFT HEEL Status post laser lithotripsy of ureteral calculus 12/18/19 History of cholecystectomy Family History Grandmother Diabetes Mother Breast cancer Sister Breast cancer Social History Smoking Status: Former smoker Tobacco Type: Cigarettes packs per day: 1; Second Hand Exposure: No; Do You Dip or Chew Tobacco: No; Hx Alcohol Use: No Hx Substance Use: No Preferred Language: Angolan Communication Ability: Effective Syrup Blender Required: No Beliefs That Will Affect Care: None marital status: Current Living Situation: Spouse Current Living Situation Comment: Lives at home with current occupational status: retired How many Children do You have: 1 Feels Safe at Home: No Is there a partner from a previous relationship who is making you feel unsafe now?: No Safety Concerns: Feels Safe At This Time during the past year weight has: remained stable Assistive Devices: Cane Review of Systems Review of Systems: All systems reviewed & are unremarkable except as noted in Subjective Physical Exam Physical Exam: Please see physician note for details of the physical exam Results & Data Results & Data Vital Signs (Past 12 Hours) Vital Signs Temp Pulse Pulse Resp BP BP Pulse Ox 12/05/24 13:16 69 20 142/67 H 94 12/05/24 11:31 36.7 C 74 16 143/74 H 95 O2 Del Method 12/05/24 13:16 Room Air 12/05/24 11:31 Room Air Laboratory Results Lab Results 12/05/24 Range/Units 16:21 WBC 16.13 H (4.8-10.8) K/ul RBC 4.24 L (4.70-6.10) M/uL Hgb 11.4 L (14.0-18.0) g/dl Hct 36.4 L (42.0-52.0) % MCV 85.8 (80.0-100.0) fL MCH 26.9 (25.0-34.0) pg MCHC 31.3 L (32.0-36.0) g/dL RDW Std Deviation 65.1 H (36.4-46.3) fL RDW Coeff of Rea 20.9 H (11.5-14.5) % Plt Count 123 L (130-400) K/uL MPV 9.6 (9.4-12.4) fL Sodium 137 (136-145) mmol/L Potassium 4.5 (3.5-5.1) mmol/L Chloride 103 (98-107) mmol/L Carbon Dioxide 27 (21-32) mmol/L Anion Gap 7 (3-11) Calcium 8.8 (8.6-10.3) mg/dl Total Bilirubin 3.2 H (0.2-1.0) mg/dl Albumin 3.5 (3.4-5.0) gm/dl Diagnostic Findings Shoulder X-Ray 12/05/24 11:40 XR shoulder RT min 2V routine CLINICAL HISTORY: R shoulder pain s/p fall COMPARISON: None FINDINGS: Alignment of the right shoulder is anatomic. There is no acute fracture. There is moderate acromioclavicular joint osteoarthritis. There is also mild osteophytosis of the glenohumeral joint. Left subclavian pacer leads are partially imaged. Electronic device of the right upper arm is present. IMPRESSION: 1. No fracture or dislocation within the right shoulder. 2. Moderate degenerative changes within the right shoulder. ACT 112: Negative or not required by law. Electronically signed by: Joshua Sinclair M.D. 12/05/2024 12:26 PM Abdomen/Pelvis CT 12/05/24 14:06 REASON FOR EXAM: Right shoulder pain. Ground-level fall on .. HISTORY: Right shoulder pain EXAM: CT abdomen/pelvis without contrast Comparison exam: CT abdomen/pelvis 11/03/2021. FINDINGS: Liver remains normal in size but is quite nodular in appearance suggesting chronic hepatic cirrhosis. No definite focal liver lesion seen on unenhanced only images. Spleen is mildly enlarged. Moderate amount of ascites is seen in the upper abdomen. Mild venous prominence suggesting possible early cavernous transformation of the portal vein. Pancreas unremarkable. Clips from cholecystectomy are noted. Adrenal glands are unremarkable. Right kidney shows 5 mm lower pole calculus but no hydronephrosis. Left kidney shows 3 mm lower pole calculus and 4.5 the lower pole cyst but no hydronephrosis. Moderate amount of ascites is also present in the pelvis. No evidence of bowel obstruction or free intraperitoneal air is seen at this time. There is some diffuse thickening of the wall of the urinary bladder with mild prostatic enlargement. Degenerative changes but no acute bony trauma identified at this time. IMPRESSION: 1. Chronic hepatic cirrhosis with evidence of portal venous hypertension including splenomegaly, early cavernous transformation of portal vein and a large amount of abdominal and pelvic ascites. 2. Bilateral renal calculi without hydronephrosis. Left renal cysts. Electronically signed by Chris Jay 12-05-2024 3:[address] 12/05/24 14:06 HISTORY: Right shoulder pain. Ground-level fall on , fell onto right side. Did not strike head. EXAM: CT chest diagnostic without contrast Comparison: Portable chest 09/14/2024 FINDINGS: Lung zones remain expanded without pneumothorax or significant pleural effusion. Mild areas of linear atelectasis/fibrosis are seen in both lower lobes similar to the previous study. Otherwise no acute infiltrate or edema is seen at this time. No significant abnormal hilar or mediastinal mass or adenopathy is seen. Left-sided pacemaker is present. Severe coronary artery calcifications are present. No acute bony trauma is identified at the examined levels. IMPRESSION: 1. Negative for acute traumatic abnormalities. 2. Mild areas of atelectasis/scarring/fibrosis in the lower lobes bilaterally. 3. Severe coronary artery calcification. Electronically signed by Crhis Jay 12-05-2024 3:07 PM Medications Administered Discontinued Medications Oxycodone HCl (Oxycodone Hcl Ir 5 Mg Tab (Immediate Release)) 5 mg PO NOW STA Stop: 12/05/24 11:52 Last Admin: 12/05/24 11:57 Dose: 5 mg Documented By: OUMAR Supervising Physician Co-Signing Physician Notes I have seen and discussed the case with the collaborating advanced practitioner. I agree with the above H&P. I have reviewed and confirmed the patients medical history, the findings on physical examination, and the patients diagnosis and treatment plan with Emelyn AMIN and agree with the information documented. In short, Mr. Boykin is a 74 yo gentleman who presented with mechanical fall; however, exam revealed concerns for decompensated cirrhosis. Patient very difficult to obtain history and son at bedside tried, but is also unaware of mist of the medications. Patient reports noncompliance with diuretics given issues with urination. Patient potentially a good candidate to establish with palliative care at some point either inpatient v op. GENERAL APPEARANCE: AxOx3 flat affect, no distress but minimal participation in exam HEENT: NC, AT. MMM. EOMI, clear conjunctiva, oropharynx clear. NECK: Supple without lymphadenopathy. No stiffness or restricted ROM. HEART: Normal rate and regular rhythm, normal S1/S1, no m/r/g LUNGS: CTAB, moving air well. No crackles or wheezes are heard. ABDOMEN: protuberant and firm abdomen, NT, BS+ BACK: No CVAT, no obvious deformity. EXTREMITIES: BLE 1+ pitting edema with chronic edematous changes noted NEUROLOGICAL: Grossly nonfocal. Alert and oriented, moving all 4 extremities. CN not formally tested but appear grossly intact. Skin: Warm and dry without any rash. #Leukocytosis #generalized weakness with mechanical fall UA questionable also with decompensated cirrhosis RSV/flu negative Follow cultures continue CTX #Right shoulder pain analgesia as above #Cirrhosis 2/2 GARCES, decompensated - MELD labs ordered - Last EGD 03/202424 grade I EV - PSE: Denies h/o HE, no evidence of HE on exam, ctm, ammonia level added - Ascites: home Lasix:Francisco J 40:50; Continue spironolactone, start IV lasix 40mg daily - Ascites: consider consult IR for paracentesis - SBP: no history, but will c/w Rocephin given questionable UA and decompensation - EV: No evidence of GIB presently, close monitoring - on protonix daily for PPx at home, will continue - HRS: Cr at baseline - Daily CMP + INR to calculate MELD; low Na diet #Colon adencarcinoma 2020 S/P laparoscopic assisted right colon resection and umbilical hernia repair on 11/01/[address] Sewell OP #Iron deficiency anemia follow naz for iron transfusions stable anemia no active sign of bleeding trend cbc rest of plan as above I spent a total of 20 minutes coordinating, documenting, and providing care for this patient excluding time spent in the performance of separately billed services. All of the aforementioned completed outside of collaborating with the assigned advanced practitioner for a full treatment plan. I have reviewed the advanced practitioner's documentation, and I agree with, and take responsibility for the plan of care (2) Fall from standing Encounter type: initial encounter Qualified Code(s): W19.XXXA - Unspecified fall, initial encounter (4) Iron deficiency anemia Iron deficiency anemia type: unspecified iron deficiency Qualified Code(s): D50.9 - Iron deficiency anemia, unspecified (5) Abdominal ascites Ascites type: other type Qualified Code(s): R18.8 - Other ascites (7) Diabetic polyneuropathy Diabetes mellitus type: type 2 Qualified Code(s): E11.42 - Type 2 diabetes mellitus with diabetic polyneuropathy (8) CKD (chronic kidney disease) stage 3, GFR 30-59 ml/min Chronic kidney disease stage 3 subtype: unspecified whether 3a or 3b Qualified Code(s): N18.30 - Chronic kidney disease, stage 3 unspecified (9) Hypertension Hypertension type: unspecified Qualified Code(s): I10 - Essential (primary) hypertension (10) Diabetes mellitus Diabetes mellitus complication detail: with polyneuropathy Diabetes mellitus complication status: with neurologic complications Diabetes mellitus mcfp insulin use: with mcfp use Diabetes mellitus type: type 2 Qualified Code(s): E11.42 - Type 2 diabetes mellitus with diabetic polyneuropathy; Z79.4 - care home (current) use of insulin (12) Cirrhosis of liver Hepatic cirrhosis type: other cirrhosis Qualified Code(s): K74.69 - Other cirrhosis of liver
[2024-12-05 17:01] LABS: Alanine Aminotransferase 23 U/L (7-52); Albumin Globulin Ratio 1.1 (0.9-2); Alkaline Phosphatase 182 U/L (34-104); Aspartate Aminotransferase 42 U/L (13-39); BUN Creatinine Ratio 12.4 (10-20); Blood Urea Nitrogen 15 mg/dl (6-23); Globulin 3.1 gm/dl (2.5-4.0); Glucose 154 mg/dl (70-99(Fasting)); Total Protein 6.6 gm/dl (6.0-8.3)
[2024-12-05 17:07] LABS: Anisocytosis Present; Basophils # (auto) 0.05 K/uL (0.00-0.20); Basophils % (auto) 0.3 %; Eosinophils # (auto) 0.02 K/uL (0.00-0.50); Eosinophils % (auto) 0.1 %; Immature Granulocytes # (auto) 0.08 K/uL (0.01-0.20); Immature Granulocytes % (auto) 0.5 %; Lymphocytes # (auto) 0.38 K/uL (1.20-3.40); Lymphocytes % (auto) 2.4 %; Monocytes # (auto) 0.58 K/uL (0.11-0.59); Monocytes % (auto) 3.6 %; Neutrophils # (auto) 15.02 K/uL (1.40-6.50); Neutrophils % (auto) 93.1 %; Ovalocytes 1+; Polychromasia 1+
[2024-12-05] MEDS: FUROSEMIDE 40 MG/4 ML VIAL IV ONE (17:38)
[2024-12-05] MEDS: LIDOCAINE 5% 1 PATCH TD SCH (17:39)
[2024-12-05] MEDS: CYCLOBENZAPRINE HCL 5 MG TAB PO ONE (17:39)
[2024-12-05] MEDS: cefTRIAXone SODIUM 2,000 MG/50 ML BAG IV SCH (17:39)
[2024-12-05 18:31] LABS: Appearance Urine Cloudy (Clear); Bacteria Urine Automated 2+ (None Seen); Bilirubin Urine Negative (Negative); Blood Urine 2+ (Negative); Color Urine Yellow; Epithelial Cell Urine Auto 0-2 /hpf (0-2); Glucose Urine UA 3+ (Negative); Ketones Urine Negative (Negative); Leukocyte Esterase Urine 1+ (Negative); Nitrite Urine Positive (Negative); Protein Urine Trace (Negative); Specific Gravity Urine 1.026 (1.000-1.030); Urobilinogen Urine Negative (Negative); White Blood Cell Casts Urine Present /lpf (None Prsent)
[2024-12-05 18:32] LABS: WBC Urine Automated 21-50 /hpf (0-5)
[2024-12-05 18:46] LABS: Influenza A virus by PCR Negative (Neg); Influenza B virus by PCR Negative (Neg); RSV by PCR Negative (Neg); SARS CoV2 RNA(COVID-19) Ceph NEGATIVE (Negative)
[2024-12-05 18:49] LABS: Troponin I High Sensitivity 20.2 pg/ml (0-20)
[2024-12-05] MEDS: TROLAMINE SALICYLATE 10% CRM 255 APPLN/85 GM TUBE EXT SCH (19:38)
[2024-12-05] MEDS: oxyCODONE HCL IR 5 MG TAB (IMMEDIATE RELEASE) PO PRN (20:14)
[2024-12-05] MEDS ORDERED: PHARMACY GLYCEMIC MGMT CONSULT PRN (20:51)
[2024-12-05] MEDS ORDERED: GLUCAGON FOR INJ 1 MG VIAL SQ PRN (20:51)
[2024-12-05] MEDS ORDERED: CARBOHYDRATES FOR HYPOGLYCEMIA PO PRN (20:51)
[2024-12-05] MEDS ORDERED: GLUCOSE 10 TAB/TUBE PO PRN (20:51)
[2024-12-05] MEDS ORDERED: DEXTROSE 50% 50 ML SYRINGE IV PRN (20:51)
[2024-12-05] MEDS ORDERED: GLUCOSE 40% GEL 15 GM TUBE PO PRN (20:51)
[2024-12-05] MEDS: INSULIN ASPART PER UNIT CHARGE SC SCH (21:38)
[2024-12-05] MEDS: LANTUS PER UNIT CHARGE SQ SCH (21:54)
[2024-12-05] MEDS: FERROUS SULFATE 325 MG TAB PO SCH (21:55)
[2024-12-05] MEDS: ATORVASTATIN 40 MG TAB PO SCH (21:55)
[2024-12-05 23:17] LABS: INR 1.2 (0.9-1.1); Prothrombin Time 12.8 Seconds (9.0-12.0)
[2024-12-06 07:05] LABS: Hematocrit (blood only) 29.3 % (42.0-52.0); Hemoglobin 9.4 g/dl (14.0-18.0); Mean Corpuscular Hemoglobin 27.1 pg (25.0-34.0); Mean Corpuscular Hgb Conc 32.1 g/dL (32.0-36.0); Mean Corpuscular Volume 84.4 fL (80.0-100.0); Mean Platelet Volume 9.7 fL (9.4-12.4); Platelet Count 109 K/uL (130-400); RDW Standard Deviation 65.1 fL (36.4-46.3); Red Blood Count 3.47 M/uL (4.70-6.10); White Blood Count 13.22 K/ul (4.8-10.8)
[2024-12-06 07:22] LABS: Albumin Level 2.8 gm/dl (3.4-5.0); BUN Creatinine Ratio 13.6 (10-20); Bilirubin Direct 0.7 mg/dl (0-0.2); Bilirubin,Total 2.4 mg/dl (0.2-1.0); Calcium 8.1 mg/dl (8.6-10.3); Creatinine Clr Calc Pharmacy 63.8 ml/min; Potassium 3.8 mmol/L (3.5-5.1); Total Protein 5.3 gm/dl (6.0-8.3)
[2024-12-06 07:38] LABS: Anisocytosis Present; Basophils # (auto) 0.03 K/uL (0.00-0.20); Basophils % (auto) 0.2 %; Eosinophils # (auto) 0.05 K/uL (0.00-0.50); Eosinophils % (auto) 0.4 %; Immature Granulocytes # (auto) 0.06 K/uL (0.01-0.20); Immature Granulocytes % (auto) 0.5 %; Lymphocytes # (auto) 0.52 K/uL (1.20-3.40); Lymphocytes % (auto) 3.9 %; Monocytes # (auto) 0.61 K/uL (0.11-0.59); Monocytes % (auto) 4.6 %; Neutrophils # (auto) 11.95 K/uL (1.40-6.50); Neutrophils % (auto) 90.4 %; Ovalocytes 1+; Polychromasia 1+; Tear Drop Cells 1+
[2024-12-06 07:40] LABS: Estimated Average Glucose 123 mg/dl; Hemoglobin A1C 5.9 % (4.5-5.6)
[2024-12-06 07:41] LABS: INR 1.3 (0.9-1.1); Prothrombin Time 13.6 Seconds (9.0-12.0)
[2024-12-06] MEDS: FUROSEMIDE 40 MG/4 ML VIAL IV ONE ×3 (08:00→21:59)
[2024-12-06] MEDS: PANTOprazole 40 MG TAB PO SCH (08:03)
[2024-12-06] MEDS: CHOLECALCIFEROL 25 MCG (1000 UNITS) TAB PO SCH (08:03)
[2024-12-06] MEDS: TAMSULOSIN HCL 0.4 MG CAP PO SCH (08:03)
[2024-12-06] MEDS: ESCITALOPRAM OXALATE 10 MG TAB PO SCH (08:04)
[2024-12-06] MEDS: allopurinoL 100 MG TAB PO SCH (08:04)
[2024-12-06] MEDS: ASCORBIC ACID 500 MG TAB PO SCH (08:04)
[2024-12-06] MEDS: LANTUS PER UNIT CHARGE SQ SCH ×2 (08:54→21:01)
--- NOTE | 2024-12-06 12:27 | Electrocardiogram Report ---
Test Reason : Blood Pressure : */* mmHG Vent. Rate : 79 BPM Atrial Rate : 79 BPM P-R Int : 188 ms QRS Dur : 98 ms QT Int : 408 ms P-R-T Axes : 33 -54 83 degrees QTcB Int : 467 ms Atrial-sensed ventricular-paced rhythm Abnormal ECG When compared with ECG of 14-Sep-2024 14:25, Electronic ventricular pacemaker has replaced Sinus rhythm Confirmed by Jr Marks ([id number]) on 12/06/2024 12:27:20 PM Referred By: REFERRED SELF Confirmed By: Jr Marks
--- NOTE | 2024-12-06 13:36 | Pharmacy Report ---
Pharmacy Glycemic Short Note 2 - Date of Service December 06, 2024 - Glycemic Short BSG Results (Last 24 hours): 12/05/24 12/05/24 12/06/24 16:21 21:27 06:15 Glucose 154 H 105 H POC Glucose 157 H 12/06/24 12/06/24 07:01 12:45 Glucose POC Glucose 107 H 140 H OUTPATIENT ANTIDIABETIC REGIMEN: * Lantus 48 units SC qAM, 40 units SC qPM * Empagliflozin 25 mg PO daily HbA1c: 5.9% (12/06/24) ASSESSMENT: * HS is a 74 year old male who presented to ED w/ acute right shoulder pain s/p fall ~48 hours ago * Past inpatient glycemic data suggests aggressive insulin regimen may be necessary, however will utilize some caution given HbA1c and AM blood sugar of 107 mg/dL * T2DM diet ordered PLAN FOR INPATIENT GLYCEMIC CONTROL: * Hold outpatient oral diabetes medications * Basal insulin * Lantus 20-30-40 units SQ BID * Bolus insulin * NovoLog per scale ACHS or Q6hrs while NPO * Goal Range: Low 120 mg/dL - High 160 mg/dL * Correction Factor: 15 mg/dL/unit * Nutritional / Prandial insulin per carb ratio of 1 unit per 4 grams CHO consumed
[2024-12-06] MEDS ORDERED: VANCOMYCIN CONSULT ACTIVE PRN (16:45)
--- NOTE | 2024-12-06 17:01 | Pharmacy Report ---
Pharmacy PK ABX Note - Date of Service December 06, 2024 - Assessment and Plan Assessment 74 year old M receiving ceftriaxone/vancomycin for empiric coverage. Patient with hx of cirrhosis, CHF, type II diabetes. WBC initially elevated 16 --> 13. Fever documented this afternoon. UA (indwelling alberto) growing S. aureus sensitivities pending. Blood cultures to be obtained, starting vancomycin at this time. Plan Vancomycin * Loading dose: 2500 mg IV x 1 * Maintenance dose: 1000 mg IV every 12 hours * Regimen is predicted to achieve target AUC/EULOGIO of 400-600 mg/L.hr * Random level to be ordered if continued > 48 hours Pharmacy will continue to follow and will adjust dose/frequency as necessary. Thank you. Pharmacy has transitioned to AUC monitoring for vancomycin. AUC/EULOGIO is the preferred PK/PD target and is associated with decreased risk of nephrotoxicity compared to traditional trough targets.
--- NOTE | 2024-12-06 17:06 | Hospitalist Progress Note ---
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 Pt reports being non-compliant with diuretic regimen and notes progressive ascites and edema. On work-up in the ED, he was noted to have leukocytosis with WBC count of 16.13, UA pending. Renal function at baseline. Chronic thrombocytopenia related to cirrhosis that is unchanged from baseline. Pt was referred for admission for further work-up and management related to generalized weakness and fall. Mechanical Fall Generalized weakness Right shoulder pain likely due to osteoarthritis --Shoulder X ray:No fracture or dislocation within the right shoulder. Moderate degenerative changes within the right shoulder. Fall precautions PT OT Continue right upper extremity sling for comfort Consider orthopedics evaluation if needed Urinary tract infection Urine culture preliminary growing Staph aureus H/O MRSA Empirically on ceftriaxone, vancomycin Follow-up cultures Adjust antibiotics as needed Dysphagia Aspiration precautions Speech therapy consulted GARCES cirrhosis decompensated Progressive ascites and peripheral edema --CT ABD:Chronic hepatic cirrhosis with evidence of portal venous hypertension including splenomegaly, early cavernous transformation of portal vein and a large amount of abdominal and pelvic ascites. Bilateral renal calculi without hydronephrosis. Left renal cysts. -Saturating well on room air Received IV Lasix today Monitor volume status, daily weight Will consult GI tomorrow Will likely need paracentesis by IR Iron deficiency anemia currently receiving iron infusions through hematology Dr. Salvador Sewell Continue oral iron supplement Monitor CBC H/O colon adenocarcinoma S/P laparoscopic assisted right colon resection and umbilical hernia repair on 11/01/[address] Salvador Sewell as outpatient DM II - on Lantus 48 units in the AM, 40 units in the PM Continue insulin per protocol Glycemic pharmacist consulted Monitor blood glucose levels Depression H/O suicidal ideations Continue outpatient medications DVT Px: SCDs, SQ heparin for now Code status: full code Disposition PT OT prior to discharge Admission and Anticipated Discharge Date Admission Date: December 05, 2024 Subjective Patient is seen and examined at bedside States having right shoulder pain but otherwise no complaints RN noted patient to have trouble swallowing this morning Patient denied any chest pain, dyspnea, nausea, vomiting, abdominal pain Poor historian States feeling tired Review of Systems Review of Systems: All systems reviewed & are unremarkable except as noted in Subjective Physical Exam Physical Exam: Physical Exam: Vitals signs as noted above General Appearance:Moderately built and nourished, no apparent distress, chronic ill apperaing Head: normocephalic, Atraumatic Eyes: normal inspection, EOMI Neck: supple, Trachea midline Respiratory/Chest: Normal breath sounds, CTA, No accessory muscle use Cardiovascular: S1, S2, +murmur Abdomen/GI:Soft, Non tender, distended, Bowel sounds present Extremities/Musculoskeletal:normal inspection, 3+ edema, chronic venous stasis changes, RUE in sling Neurologic/Psych:AAOX2, grossly no focal neurological deficits Skin: normal color, warm Results & Data Results & Data Vital Signs (Past 12 Hours) Vital Signs Temp Pulse Resp BP Pulse Ox O2 Del Method O2 Flow Rate 12/06/24 14:21 39.2 C H 79 18 129/64 90 Room Air 12/06/24 07:02 36.8 C 76 22 114/51 L 94 Nasal Cannula 2 Laboratory Results Short CBC 12/06/24 Range/Units 06:15 WBC 13.22 H (4.8-10.8) K/ul Hgb 9.4 L (14.0-18.0) g/dl Hct 29.3 L (42.0-52.0) % Plt Count 109 L (130-400) K/uL BMP 12/05/24 12/06/24 16:21 06:15 Sodium 139 Potassium 3.8 Chloride 104 Carbon Dioxide 29 BUN 15 17 Creatinine 1.21 1.25 Glucose 154 H 105 H Calcium 8.1 L Liver Function 12/05/24 12/06/24 Range/Units 16:21 06:15 Total Bilirubin 2.4 H (0.2-1.0) mg/dl Direct Bilirubin 0.7 H (0-0.2) mg/dl AST 42 H 28 (13-39) U/L ALT 23 17 (7-52) U/L Alkaline Phosphatase 182 H 140 H (34-104) U/L Albumin 2.8 L (3.4-5.0) gm/dl Urine 12/05/24 Range/Units 17:40 Urine Color Yellow Urine Appearance Cloudy A (Clear) Urine pH 5.0 (4.5-7.5) Ur Specific [place] 1.026 (1.000-1.030) Urine Protein Trace H (Negative) Urine Glucose (UA) 3+ H (Negative) (2) Fall from standing Encounter type: initial encounter Qualified Code(s): W19.XXXA - Unspecified fall, initial encounter (4) Iron deficiency anemia Iron deficiency anemia type: unspecified iron deficiency Qualified Code(s): D50.9 - Iron deficiency anemia, unspecified (5) Abdominal ascites Ascites type: other type Qualified Code(s): R18.8 - Other ascites (7) Diabetic polyneuropathy Diabetes mellitus type: type 2 Qualified Code(s): E11.42 - Type 2 diabetes me llitus with diabetic polyneuropathy (8) CKD (chronic kidney disease) stage 3, GFR 30-59 ml/min Chronic kidney disease stage 3 subtype: unspecified whether 3a or 3b Qualified Code(s): N18.30 - Chronic kidney disease, stage 3 unspecified (9) Hypertension Hypertension type: unspecified Qualified Code(s): I10 - Essential (primary) hypertension (10) Diabetes mellitus Diabetes mellitus type: type 2 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
[2024-12-06] MEDS: VANCOMYCIN HCL 2,500 MG in SODIUM CHLORIDE 0.9% 500 ML IV ONE (18:03)
--- NOTE | 2024-12-06 20:55 | Communication Note ---
Date of Service: December 06, 2024
[2024-12-06] MEDS: HEPARIN SOD 5,000 UNIT/0.5 ML VIAL SQ SCH (21:02)
[2024-12-06] MEDS: ACETAMINOPHEN 325 MG TAB PO STA (21:02)
[2024-12-06 21:15] LABS: Base Excess VBG 8.2 mEq/L; HCO3 VBG 30 mmol/L; Oxygen Saturation VBG 99.4 %; PCO2 VBG 30 mmHg (38-50); PO2 VBG 139 mmHg
[2024-12-06 21:17] LABS: Magnesium 1.5 mg/dl (1.7-2.4)
[2024-12-06 21:28] LABS: Partial Thromboplastin Ratio 1.2; Partial Thromboplastin Time 32 Seconds (21-31)
--- NOTE | 2024-12-06 23:50 | XRay Report ---
Exam(s): XR CXR 1 VIEW EXAM: XR Chest, 1 View CLINICAL HISTORY: Reason for exam: low o2. TECHNIQUE: Frontal view of the chest. COMPARISON: 09/14/[address] chest: 12/05/2024 FINDINGS: Lungs: There is mild vascular congestion. There is bibasilar atelectasis, left greater than right. There is a probable small left basilar pleural effusion. Pleural space: No pneumothorax. Heart: Unremarkable. No cardiomegaly. Mediastinum: Unremarkable. Normal mediastinal contour. Bones/joints: Unremarkable. No acute fracture. Tubes, lines and devices: There is mild chordee megaly. A cardiac pacemaker projects over the left chest. IMPRESSION: There is mild vascular congestion. There is bibasilar atelectasis, left greater than right. There is a probable small left basilar pleural effusion. Electronically signed by: Noam Roca MD 12/06/24 23:49 PM
[2024-12-07] MEDS: VANCOMYCIN HCL 1,000 MG/270 ML BAG IV SCH (05:53)
[2024-12-07 08:01] LABS: Albumin Level 2.9 gm/dl (3.4-5.0); BUN Creatinine Ratio 14.8 (10-20); Bilirubin,Total 2.1 mg/dl (0.2-1.0); Calcium 7.9 mg/dl (8.6-10.3); Creatinine Clr Calc Pharmacy 53.1 ml/min; Globulin 2.8 gm/dl (2.5-4.0); Magnesium 1.5 mg/dl (1.7-2.4); Potassium 3.4 mmol/L (3.5-5.1); Total Protein 5.7 gm/dl (6.0-8.3)
[2024-12-07 08:29] LABS: Hematocrit (blood only) 32.3 % (42.0-52.0); Hemoglobin 10.3 g/dl (14.0-18.0); Mean Corpuscular Hemoglobin 27.1 pg (25.0-34.0); Mean Corpuscular Hgb Conc 31.9 g/dL (32.0-36.0); Mean Platelet Volume 9.6 fL (9.4-12.4); Platelet Count 109 K/uL (130-400); RDW Coefficient of Variation 21.2 % (11.5-14.5); RDW Standard Deviation 65.6 fL (36.4-46.3)
[2024-12-07] MEDS: MAGNESIUM SULFATE / D5W 1 GM/100 ML BAG IV ONE (10:52)
[2024-12-07] MEDS: POTASSIUM CHLORIDE 20 MEQ/15 ML UDC PO ONE (10:52)
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
[2024-12-07 12:23] LABS: A calco-baum cmplx NotReported Not Detected (NotDetected); Bact fragilis Not Reported Not Detected (NotDetected); Blood Culture Id Panel See PCR Comment (NotDetected); C auris Not Reported Not Detected (NotDetected); Calbicans Not Reported Not Detected (NotDetected); Candida glabrata Not Reported Not Detected (NotDetected); Candida krusei Not Reported Not Detected (NotDetected); Cneoformans/gatti Not Reported Not Detected (NotDetected); Cparapsilosis Not Reported Not Detected (NotDetected); E cloacae compx Not Reported Not Detected (NotDetected); Efaecalis Not Reported Not Detected (NotDetected); Efaecium Not Reported Not Detected (NotDetected); Enterobacterales Not Reported Not Detected (NotDetected); Escherichia coli Not Reported Not Detected (NotDetected); H influenzae Not Reported Not Detected (NotDetected); K aerogenes Not Reported Not Detected (NotDetected); Koxytoca Not Reported Not Detected (NotDetected); Kpneumoniae grp Not Reported Not Detected (NotDetected); Lmonocyt Not Reported Not Detected (NotDetected); N meningitidis Not Reported Not Detected (NotDetected); P aeruginosa Not Reported Not Detected (NotDetected); Proteus spp Not Reported Not Detected (NotDetected); Salmonella spp Not Reported Not Detected (NotDetected); Staph lugdunensis Not Reported Not Detected (NotDetected); Staph spp. Not Reported DETECTED (NotDetected); Staphaureus Not Reported DETECTED (NotDetected); Staphepi Not Reported Not Detected (NotDetected); Staphylococcus spp. DETECTED (NotDetected); Stenmaltophilia Not Reported Not Detected (NotDetected); Strep agal(GrpB) Not Reported Not Detected (NotDetected); Strep pneum Not Reported Not Detected (NotDetected); Strep pyog (GrpA) Not Reported Not Detected (NotDetected); Strep spp Not Reported Not Detected (NotDetected)
[2024-12-07 12:52] LABS: mecAC+MREJ Resistant Gene MRSA DETECTED (NotDetected)
--- NOTE | 2024-12-07 14:25 | Ultrasound Report ---
ULTRASOUND-GUIDED PARACENTESIS CLINICAL HISTORY: Ascites PROCEDURE: Procedure and risks were explained. Informed consent was obtained. A final timeout was com pleted. The abdomen was prepped and draped in sterile fashion. 1% lidocaine was utilized for skin ane sthesia. Utilizing ultrasound guidance, a 5 Divehi safety centesis catheter was advanced into the left lower q uadrant pocket of ascites. Ultrasound images were obtained. 5 L of yellow-colored ascites fluid was r emoved, with 1 L sent to lab. The catheter was removed and Band-Aid applied. The patient tolerated th e procedure well. Vital signs will be monitored postprocedure. IMPRESSION: Ultrasound-guided paracentesis as above. Performed, dictated, and signed by Andrea Gamboa PA-C; to be co-signed by Dr. Chris Aceves. Electronically signed by: Chris Aceves M.D. 12/07/2024 3:55 PM
--- NOTE | 2024-12-07 14:26 | Pharmacy Report ---
Pharmacy PK ABX Note - Date of Service December 07, 2024 - Assessment and Plan Assessment 12/07: * Renal function declining so vancomycin changed to 1500mg iv q 24 hours starting at 2100 tonight. * Urine from 12/05 grew MRSA, vanco EULOGIO= 1 * Blood x 2 from 12/06 grew gram positive cocci in clusters (prelim) -[employer] detected MRSA. 12/06: 74 year old M receiving ceftriaxone/vancomycin for empiric coverage. Patient with hx of cirrhosis, CHF, type II diabetes. WBC initially elevated 16 --> 13. Fever documented this afternoon. UA (indwelling alberto) growing S. aureus sensitivities pending. Blood cultures to be obtained, starting vancomycin at this time. Plan Vancomycin * Loading dose: 2500 mg IV x 1 * Maintenance dose changed to : 1500 mg IV every 24 hours * Regimen is predicted to achieve target AUC/EULOGIO of 400-600 mg/L.hr * Random level to be ordered 12/09 with AM labs. Pharmacy will continue to follow and will adjust dose/frequency as necessary. Thank you. Pharmacy has transitioned to AUC monitoring for vancomycin. AUC/EULOGIO is the preferred PK/PD target and is associated with decreased risk of nephrotoxicity compared to traditional trough targets.
--- NOTE | 2024-12-07 15:19 | Hospitalist Progress Note ---
Date of Service December 07, 2024 Assessment & Plan (1) Acute pain of right shoulder: (2) Fall from standing: (3) Generalized weakness: (4) Iron deficiency anemia: (5) Abdominal ascites: (6) Noncompliance with medications: (7) Diabetic polyneuropathy: (8) CKD (chronic kidney disease) stage 3, GFR 30-59 ml/min: (9) Hypertension: (10) Diabetes mellitus: (11) Dyslipidemia: (12) Cirrhosis of liver: Plan Patient is a 74 yr male with cirrhosis due to fatty liver disease, DM2 with polyneuropathy, SSS s/p PPM, HTN, CKD3, major depression with hx suicidal ideation, panic disorder, and other history as outlined below who presents to the ED today with worsening right shoulder pain since fall at home a few days ago. Pt reports being non-compliant with diuretic regimen and notes progressive ascites and edema. On work-up in the ED, he was noted to have leukocytosis with WBC count of 16.13, UA pending. Renal function at baseline. Chronic thrombocytopenia related to cirrhosis that is unchanged from baseline. Pt was referred for admission for further work-up and management related to generalized weakness and fall. Mechanical Fall Generalized weakness Right shoulder pain likely due to osteoarthritis --Shoulder X ray:No fracture or dislocation within the right shoulder. Moderate degenerative changes within the right shoulder. Fall precautions PT OT Continue right upper extremity sling for comfort Given persistent right shoulder pain, will request orthopedics evaluation Urinary tract infection Suspected bacteremia Urine culture grew MRSA Blood cultures: Gram-positive cocci in clusters H/O MRSA Empirically on ceftriaxone, vancomycin Follow-up cultures Will consider ID evaluation Will repeat cultures tomorrow May need echo based on the cultures Dysphagia Aspiration precautions Speech therapy eval Continue minced and moist diet with thin liquids as recommended by speech therapy GARCES cirrhosis decompensated Progressive ascites and peripheral edema --CT ABD:Chronic hepatic cirrhosis with evidence of portal venous hypertension including splenomegaly, early cavernous transformation of portal vein and a large amount of abdominal and pelvic ascites. Bilateral renal calculi without hydronephrosis. Left renal cysts. -Saturating well on room air Received IV Lasix Monitor volume status, daily weight Patient GI input Plan for abdominal paracentesis by IR Will need to follow-up with outpatient hepatology on discharge Low-sodium diet Iron deficiency anemia currently receiving iron infusions through hematology Dr. Salvador Sewell Continue oral iron supplement Monitor CBC H/O colon adenocarcinoma S/P laparoscopic assisted right colon resection and umbilical hernia repair on 11/01/[address] Salvador Sewell as outpatient DM II - on Lantus 48 units in the AM, 40 units in the PM Continue insulin per protocol Glycemic pharmacist consulted Monitor blood glucose levels Depression H/O suicidal ideations Continue outpatient medications DVT Px: SCDs, SQ heparin for now Code status: full code Disposition PT OT prior to discharge Admission and Anticipated Discharge Date Admission Date: December 05, 2024 Subjective Patient is seen and examined at bedside Continues to complain of right shoulder pain Offers no other complaints Discussed with patient's family at bedside Poor historian Denies any chest pain, dyspnea, nausea, vomiting, abdominal pain Review of Systems Review of Systems: All systems reviewed & are unremarkable except as noted in Subjective Physical Exam Physical Exam: Physical Exam: Vitals signs as noted above General Appearance:Moderately built and nourished, no apparent distress, chronic ill apperaing Head: normocephalic, Atraumatic Eyes: normal inspection, EOMI Neck: supple, Trachea midline Respiratory/Chest: Normal breath sounds, CTA, No accessory muscle use Cardiovascular: S1, S2, +murmur Abdomen/GI:Soft, Non tender, distended, Bowel sounds present Extremities/Musculoskeletal:normal inspection, 3+ edema, chronic venous stasis changes, RUE in sling Neurologic/Psych:AAOX2, grossly no focal neurological deficits Skin: normal color, warm Results & Data Results & Data Vital Signs (Past 12 Hours) Vital Signs Temp Pulse Resp BP Pulse Ox O2 Del Method O2 Flow Rate 12/07/24 14:20 36.9 C 68 16 118/61 93 Room Air 12/07/24 08:19 36.8 C 71 16 115/65 96 Nasal Cannula 2 12/07/24 04:57 36.8 C Laboratory Results Short CBC 12/07/24 Range/Units 07:11 WBC 8.00 (4.8-10.8) K/ul Hgb 10.3 L (14.0-18.0) g/dl Hct 32.3 L (42.0-52.0) % Plt Count 109 L (130-400) K/uL BMP 12/07/24 07:11 Sodium 139 Potassium 3.4 L Chloride 100 Carbon Dioxide 32 BUN 22 Creatinine 1.49 H Glucose 95 Calcium 7.9 L Liver Function 12/07/24 Range/Units 07:11 Total Bilirubin 2.1 H (0.2-1.0) mg/dl AST 39 (13-39) U/L ALT 19 (7-52) U/L Alkaline Phosphatase 144 H (34-104) U/L Albumin 2.9 L (3.4-5.0) gm/dl (2) Fall from standing Encounter type: initial encounter Qualified Code(s): W19.XXXA - Unspecified fall, initial encounter (4) Iron deficiency anemia Iron deficiency anemia type: unspecified iron deficiency Qualified Code(s): D50.9 - Iron deficiency anemia, unspecified (5) Abdominal ascites Ascites type: other type Qualified Code(s): R18.8 - Other ascites (7) Diabetic polyneuropathy Diabetes mellitus type: type 2 Qualified Code(s): E11.42 - Type 2 diabetes mellitus with diabetic polyneuropathy (8) CKD (chronic kidney disease) stage 3, GFR 30-59 ml/min Chronic kidney disease stage 3 subtype: unspecified whether 3a or 3b Qualified Code(s): N18.30 - Chronic kidney disease, stage 3 unspecified (9) Hypertension Hypertension type: unspecified Qualified Code(s): I10 - Essential (primary) hypertension (10) Diabetes mellitus Diabetes mellitus complication detail: with polyneuropathy Diabetes mellitus complication status: with neurologic complications 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
--- NOTE | 2024-12-07 16:07 | Orthopedic Consultation ---
Date of Consultation December 07, 2024 Assessment & Plan (1) Acute pain of right shoulder: Patient fell a few days prior to his admission landing on his right shoulder. He states that overall his shoulder is the same. He has no pain at rest. He has severe pain with active movement overhead. The sling is beneficial and helpful especially to support his arm. He has been putting some cream on his shoulder. Has not tried ice. Encouraged range of motion as tolerated in the right shoulder. He could do pendulums and passive range of motion as taught by the physical therapist. Recommend OT or PT evaluation while here in the hospital. He can do full active range of motion of his elbow wrist forearm and fingers. Ice to the right shoulder as needed for pain or discomfort. I talked to him about potentially having acute on chronic rotator cuff tear. He has AC joint osteoarthritis and some mild glenohumeral joint arthritis. One of the x- ray views that does appear to that he has a high riding humerus. This would suggest a chronic rotator cuff tear. He could have a bone contusion. Offered h im cortisone injection in the subacromial space but he declined today. Will reevaluate tomorrow morning to see if he may be has changed his mind. He otherwise can follow-up as an outpatient or on an as-needed basis if his pain improves. We could consider getting an MRI of his shoulder but he does not seem to want to do anything about anything at this time so we can discuss that again at as an outpatient or tomorrow when we recheck him. Will discuss findings with Dr. Paul. All questions were answered. Patient understands and agrees with the plan. I spent approximately 30 minutes reviewing patient's chart, performing a history and physical exam, discussing and reviewing plan with the patient and Dr. Paul. Thank you for this consultation. History of Present Illness Reason for Consultation: Right shoulder pain x 4-5 days. Attending Physician: Gael Pineda MD History of Present Illness Patient is resting in bed. His right arm is in a sling. He states he fell a few days before coming into the hospital. He was admitted on December 05, 2024. He came to the emergency room with severe right shoulder pain. He states that that is the reason that he was unable to go home and he was admitted to the hospital. He denies any pain at rest. States that he has a history of having rotator cuff repairs of both of his shoulders with Dr. Galo in the past. He states probably approximately 10 years ago. Since his surgery has had no issues with either shoulder. He states he fell directly onto the right shoulder. He denies any other injuries at the time of his fall. He states that he had sig nificant severe pain in the right shoulder and inability to move it. He has mildly improved to the last few days. He denies any other injuries. He states that moving his neck causes some of his shoulder pain. He denies any numbness or tingling in the right upper extremity. He is right-hand dominant. He had x- rays in the emergency room which show no evidence of acute bony abnormality such as fracture or dislocation of the shoulder. He states he has not done any physical therapy or occupational therapy with the right shoulder. He denies ever having any type of treatment for either shoulder in the past such as cortisone injections. He states he has had those in his knees in the past without significant relief so he does not really want to proceed with doing those in his shoulder. Allergies Allergy/AdvReac Type Severity Reaction Status Date / Time Iodinated Contrast Media AdvReac Intermediate Vomiting Verified 03/24/24 15:16 Home Medications Medication Instructions Recorded Confirmed Type alfuzosin 10 mg tablet,extended 10 mg PO DAILY #90 tabs 09/21/24 12/05/24 Rx release 24 hr allopurinol 100 mg tablet 100 mg PO QAM #30 tabs 09/21/24 12/05/24 Rx ascorbic acid (vitamin C) 500 mg 250 mg (1/2 x 500 mg) PO DAILY #30 09/21/24 12/05/24 Rx tablet,extended release (Vitamin C tabs ER) atorvastatin 80 mg tablet 80 mg PO HS #30 tabs 09/21/24 12/05/24 Rx empagliflozin 25 mg tablet 25 mg PO QAM #30 tabs 09/21/24 12/05/24 Rx ferrous sulfate 325 mg (65 mg 325 mg PO BID #60 tabs 09/21/24 12/05/24 Rx iron) tablet pantoprazole 40 mg tablet,delayed 40 mg PO DAILY #30 tabs 09/21/24 12/05/24 Rx release cholecalciferol (vitamin D3) 25 50 mcg PO DAILY 12/05/24 12/05/24 History mcg (1,000 unit) tablet escitalopram oxalate 5 mg tablet 10 mg PO DAILY 12/05/24 12/05/24 History insulin glargine 100 unit/mL (3 See Rx Instructions .Route .COMPLEX 12/05/24 12/05/24 History mL) subcutaneous pen (Lantus Solostar U-100 Insulin) Patient History Medical History Panic disorder Cirrhosis of liver 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 mellitus Diabetic polyneuropathy Depression due to physical illness Depression with suicidal ideation BPH loc w urin obs/LUTS CHF (congestive heart failure) Paroxysmal atrial fibrillation Colon cancer SOB (shortness of breath) on exertion 1 FLIGHT-"OUT OF SHAPE" Chronic obstructive pulmonary disease History of pulmonary embolus (PE) REMOTE HX / LEG IN A A CAST - NO PROBLEMS SINCE History of kidney stones CKD (chronic kidney disease) stage 3, GFR 30-59 ml/min BMI 34.0-34.9,adult Sleep apnea CPAP/DOESN'T USE Hypertension Dyslipidemia Diabetes mellitus Surgical History Status post cardiac pacemaker procedure S/P colon resection (10/26/21) Laparoscopic Assisted Right Colon Resection, Umbilical Hernia Repair- Singh Ambrose MD, FACS 10/26/2021 History of esophagogastroduodenoscopy (EGD) (02/19/23) Dr. Baker History of colonoscopy 2020 History of total right knee replacement Hx of repair of rotator cuff R&L Hx of foot surgery LEFT HEEL Status post laser lithotripsy of ureteral calculus 12/18/19 History of cholecystectomy Family History Grandmother Diabetes Mother Breast cancer Sister Breast cancer Social History Smoking Status: Former smoker Tobacco Type: Cigarettes packs per day: 1; Second Hand Exposure: No; Do You Dip or Chew Tobacco: No; Hx Alcohol Use: No Hx Substance Use: No Preferred Language: Zambian Communication Ability: Effective Recreation Counselor Required: No Beliefs That Will Affect Care: None marital status: Current Living Situation: Spouse Current Living Situation Comment: Lives at home with current occupational status: retired How many Children do You have: 1 Feels Safe at Home: No Is there a partner from a previous relationship who is making you feel unsafe now?: No Safety Concerns: Feels Safe At This Time during the past year weight has: remained stable Assistive Devices: Cane and Walker Physical Exam Musculoskeletal: Exam focused on his right upper extremity: He has mild ecchymosis in the right mid forearm which is nontender to palpation. He has full range of motion of his fingers, hand and wrist. Strength is 5/5 at the wrist hand and forearm and elbow. He is nontender with palpation of the elbow. He tolerates passive and active range of motion of the forearm wrist and elbow and fingers. There is an IV in the dorsum of his right hand. There is no edema. Capillary refill is brisk. Distal pulses are 1+. He is able to approximate his thumb to all of his fingers and do full flexion and extension of his fingers. He can flex and extend his elbow. This motion does reproduce some pain in the top of his shoulder. He is nontender in the right upper arm. He is nontender over the cervical spine, scapula, SC or AC joint. He is nontender along the length of the clavicle. He has no tenderness along the lateral border of the acromion. He has some mild tenderness in the anterior aspect of the shoulder at the biceps tendon region. There is no shoulder effusion. No warmth, erythema. The skin is healthy and intact. Range of motion of the right shoulder: Passive range of motion with his arm at his side he can actually rotate to about 45 hold against resistance, he can internally rotate to the left shoulder without discomfort. Forward elevation to about 120 degrees with pain starting at about 90 degrees at the arc of motion with forward elevation as well as abduction. He is able to hold his arm in abduction against resistance. Negative empty can. Negative [place]. Active range of motion: Forward elevation to 110 degrees, abduction to 80 or 90 degrees. Was unable to put his arm behind his back due to him lying in bed. Results & Data Vital Signs (Past 12 Hours) Vital Signs Temp Pulse Resp BP Pulse Ox O2 Del Method O2 Flow Rate 12/07/24 14:20 36.9 C 68 16 118/61 93 Room Air 12/07/24 08:19 36.8 C 71 16 115/65 96 Nasal Cannula 2 12/07/24 04:57 36.8 C Laboratory Results 12/07/24 12/07/24 12/07/24 Range/Units Unknown 11:06 07:16 WBC (4.8-10.8) K/ul RBC (4.70-6.10) M/uL Hgb (14.0-18.0) g/dl Hct (42.0-52.0) % MCV (80.0-100.0) fL MCH (25.0-34.0) pg MCHC (32.0-36.0) g/dL RDW Std Deviation (36.4-46.3) fL RDW Coeff of Rea (11.5-14.5) % Plt Count (130-400) K/uL MPV (9.4-12.4) fL APTT (21-31) Seconds PTT Ratio VBG pH (7.36-7.41) VBG pCO2 (38-50) mmHg VBG pO2 mmHg VBG HCO3 mmol/L VBG O2 Saturation % VBG Base Excess mEq/L Sodium (136-145) mmol/L Potassium (3.5-5.1) mmol/L Chloride (98-107) mmol/L Carbon Dioxide (21-32) mmol/L Anion Gap (3-11) BUN (6-23) mg/dl Creatinine (0.6-1.4) mg/dl Est Cr Clr Drug Dosing ml/min eGFR BUN/Creatinine Ratio (10-20) Glucose (70-99(Fasting)) mg/dl POC Glucose 129 H 104 H (70-99) mg/dl Calcium (8.6-10.3) mg/dl Magnesium (1.7-2.4) mg/dl Total Bilirubin (0.2-1.0) mg/dl AST (13-39) U/L ALT (7-52) U/L Alkaline Phosphatase (34-104) U/L Total Protein (6.0-8.3) gm/dl Albumin (3.4-5.0) gm/dl Globulin (2.5-4.0) gm/dl Albumin/Globulin Ratio (0.9-2) Fluid Neutrophils % Pending Fluid Comment Peritoneal Color Pending Peritoneal Appearance Pending Peritoneal Tot Protein Pending Peritoneal Albumin Pending Peritoneal LDH Pending Peritoneal Amylase Pending Staphylococcus sp PCR (NotDetected) Staph aureus (PCR) (NotDetected) mecA/C & MREJ Resist Gene (NotDetected) Bld Cult ID Panel PCR (NotDetected) 12/07/24 12/06/24 12/06/24 Range/Units 07:11 21:00 20:48 WBC 8.00 (4.8-10.8) K/ul RBC 3.80 L (4.70-6.10) M/uL Hgb 10.3 L (14.0-18.0) g/dl Hct 32.3 L (42.0-52.0) % MCV 85.0 (80.0-100.0) fL MCH 27.1 (25.0-34.0) pg MCHC 31.9 L (32.0-36.0) g/dL RDW Std Deviation 65.6 H (36.4-46.3) fL RDW Coeff of Rea 21.2 H (11.5-14.5) % Plt Count 109 L (130-400) K/uL MPV 9.6 (9.4-12.4) fL APTT 32 H (21-31) Seconds PTT Ratio 1.2 VBG pH 7.60 H (7.36-7.41) VBG pCO2 30 L (38-50) mmHg VBG pO2 139 mmHg VBG HCO3 30 mmol/L VBG O2 Saturation 99.4 % VBG Base Excess 8.2 mEq/L Sodium 139 (136-145) mmol/L Potassium 3.4 L (3.5-5.1) mmol/L Chloride 100 (98-107) mmol/L Carbon Dioxide 32 (21-32) mmol/L Anion Gap 7 (3-11) BUN 22 (6-23) mg/dl Creatinine 1.49 H (0.6-1.4) mg/dl Est Cr Clr Drug Dosing 53.1 ml/min eGFR 48.64 BUN/Creatinine Ratio 14.8 (10-20) Glucose 95 (70-99(Fasting)) mg/dl POC Glucose 105 H (70-99) mg/dl Calcium 7.9 L (8.6-10.3) mg/dl Magnesium 1.5 L (1.7-2.4) mg/dl Total Bilirubin 2.1 H (0.2-1.0) mg/dl AST 39 (13-39) U/L ALT 19 (7-52) U/L Alkaline Phosphatase 144 H (34-104) U/L Total Protein 5.7 L (6.0-8.3) gm/dl Albumin 2.9 L (3.4-5.0) gm/dl Globulin 2.8 (2.5-4.0) gm/dl Albumin/Globulin Ratio 1.0 (0.9-2) Fluid Neutrophils % Fluid Comment Peritoneal Color Peritoneal Appearance Peritoneal Tot Protein Peritoneal Albumin Peritoneal LDH Peritoneal Amylase Staphylococcus sp PCR (NotDetected) Staph aureus (PCR) (NotDetected) mecA/C & MREJ Resist Gene (NotDetected) Bld Cult ID Panel PCR (NotDetected) 12/06/24 12/06/24 12/06/24 Range/Units 17:15 17:05 06:15 WBC (4.8-10.8) K/ul RBC (4.70-6.10) M/uL Hgb (14.0-18.0) g/dl Hct (42.0-52.0) % MCV (80.0-100.0) fL MCH (25.0-34.0) pg MCHC (32.0-36.0) g/dL RDW Std Deviation (36.4-46.3) fL RDW Coeff of Rea (11.5-14.5) % Plt Count (130-400) K/uL MPV (9.4-12.4) fL APTT (21-31) Seconds PTT Ratio VBG pH (7.36-7.41) VBG pCO2 (38-50) mmHg VBG pO2 mmHg VBG HCO3 mmol/L VBG O2 Saturation % VBG Base Excess mEq/L Sodium (136-145) mmol/L Potassium (3.5-5.1) mmol/L Chloride (98-107) mmol/L Carbon Dioxide (21-32) mmol/L Anion Gap (3-11) BUN (6-23) mg/dl Creatinine (0.6-1.4) mg/dl Est Cr Clr Drug Dosing ml/min eGFR BUN/Creatinine Ratio (10-20) Glucose (70-99(Fasting)) mg/dl POC Glucose 107 H (70-99) mg/dl Calcium (8.6-10.3) mg/dl Magnesium 1.5 L (1.7-2.4) mg/dl Total Bilirubin (0.2-1.0) mg/dl AST (13-39) U/L ALT (7-52) U/L Alkaline Phosphatase (34-104) U/L Total Protein (6.0-8.3) gm/dl Albumin (3.4-5.0) gm/dl Globulin (2.5-4.0) gm/dl Albumin/Globulin Ratio (0.9-2) Fluid Neutrophils % Fluid Comment Peritoneal Color Peritoneal Appearance Peritoneal Tot Protein Peritoneal Albumin Peritoneal LDH Peritoneal Amylase Staphylococcus sp PCR DETECTED A (NotDetected) Staph aureus (PCR) DETECTED A (NotDetected) mecA/C & MREJ Resist Gene MRSA DETECTED A* (NotDetected) Bld Cult ID Panel PCR See PCR Comment (NotDetected) Diagnostic Findings XR shoulder RT min 2V routine 12/05/24 CLINICAL HISTORY: R shoulder pain s/p fall COMPARISON: None FINDINGS: Alignment of the right shoulder is anatomic. There is no acute fracture. There is moderate acromioclavicular joint osteoarthritis. There is also mild osteophytosis of the glenohumeral joint. Left subclavian pacer leads are partially imaged. Electronic device of the right upper arm is present. IMPRESSION: 1. No fracture or dislocation within the right shoulder. 2. Moderate degenerative changes within the right shoulder. Chest X-Ray 12/06/24 20:53 Exam(s): XR CXR 1 VIEW EXAM: XR Chest, 1 View CLINICAL HISTORY: Reason for exam: low o2. TECHNIQUE: Frontal view of the chest. COMPARISON: 09/14/[address] chest: 12/05/2024 FINDINGS: Lungs: There is mild vascular congestion. There is bibasilar atelectasis, left greater than right. There is a probable small left basilar pleural effusion. Pleural space: No pneumothorax. Heart: Unremarkable. No cardiomegaly. Mediastinum: Unremarkable. Normal mediastinal contour. Bones/joints: Unremarkable. No acute fracture. Tubes, lines and devices: There is mild chordee megaly. A cardiac pacemaker projects over the left chest. IMPRESSION: There is mild vascular congestion. There is bibasilar atelectasis, left greater than right. There is a probable small left basilar pleural effusion. Electronically signed by: Noam Roca MD 12/06/24 23:49 PM
[2024-12-07 16:20] LABS: Albumin Peritoneal Fluid < 1.5 gm/dl; Amylase Peritoneal Fluid < 10 U/L; LDH Peritoneal Fluid 60 U/L; Total Protein Peritoneal Fluid < 3.0 gm/dl
[2024-12-07 18:52] LABS: Appearance Peritoneal Fluid Clear; Color Peritoneal Fluid Yellow; RBC Peritoneal Fluid Auto < 2000 /uL; WBC Peritoneal Fluid Auto 171 /ul (0-300)
[2024-12-07] MEDS: MAGNESIUM CHLORIDE W/CALCIUM 64MG DELAYED REL TAB PO SCH (21:10)
[2024-12-07] MEDS: VANCOMYCIN HCL 1,500 MG in SODIUM CHLORIDE 0.9% 500 ML IV SCH (21:22)
[2024-12-08 06:17] LABS: BUN Creatinine Ratio 17.5 (10-20); Calcium 7.5 mg/dl (8.6-10.3); Creatinine Clr Calc Pharmacy 61.2 ml/min; Magnesium 1.7 mg/dl (1.7-2.4); Potassium 3.3 mmol/L (3.5-5.1)
[2024-12-08 06:40] LABS: Hematocrit (blood only) 30.1 % (42.0-52.0); Hemoglobin 9.7 g/dl (14.0-18.0); Mean Corpuscular Hgb Conc 32.2 g/dL (32.0-36.0); Mean Corpuscular Volume 83.8 fL (80.0-100.0); Mean Platelet Volume 9.3 fL (9.4-12.4); Platelet Count 106 K/uL (130-400); RDW Coefficient of Variation 20.7 % (11.5-14.5); RDW Standard Deviation 63.5 fL (36.4-46.3); Red Blood Count 3.59 M/uL (4.70-6.10); White Blood Count 6.81 K/ul (4.8-10.8)
[2024-12-08 09:42] LABS: Lymphocytes, Fluid 39 %; Mono,Macrophage,Mesothelial 39 %; Neutrophils, Fluid 22 %
[2024-12-08] MEDS: POTASSIUM CHLORIDE CRTAB 20 MEQ TABCR PO ONE (10:01)
[2024-12-08] MEDS: SPIRONOLACTONE 25 MG TAB PO SCH (10:01)
[2024-12-08] MEDS: FUROSEMIDE 20 MG TAB PO SCH (10:02)
--- NOTE | 2024-12-08 10:25 | Gastroenterology Progress Note ---
Date of Service December 08, 2024 Assessment & Plan (1) Cirrhosis of liver: Plan: -Continue Lasix 20 mg daily & Aldactone 50 mg daily -OK to discontinue Ceftriaxone given fluid studies -Continue to monitor renal panel, electrolytes, & MELD labs daily -2 gm Na restricted diet -Needs ongoing hepatology follow-up with his team at [facility] -Avoid constipation -Continue iron supplementation; Given his iron deficiency and history of colon cancer, he should consider colonoscopy as an outpatient when he has his next variceal surveillance. Note: I did contact the [facility] to get a better understanding of his medications. I'm awaiting the formal fax of his med list, but it does appear he was prescribed Lasix 20 mg daily & Aldactone 50 mg daily (which he acknowledges he has not been taking due to being "out and about" and not wanting to have to urinate frequently). He has also been prescribed Nadolol 20 mg daily which he should continue given his history of esophageal varices. He is prescribed Protonix 40 mg daily as well. I will update his chart with the formal medication reconciliation when available. Admission and Anticipated Discharge Date Admission Date: December 05, 2024 Supervising Physician Co-Signing Physician Notes Fluid retention potentially related to noncompliance. We did review his pharmacy meds. He was prescribed Lasix 20 mg and Aldactone 50 to current dose. Though it does not appear he was taking it. At this point I would continue with this dosage of medication salt restriction. He should keep an eye on his weight if it increases or there is evidence recurrent fluid retention this could be increased to 40 in the 100. Subjective Patient is a 74 yo male with cirrhosis. Patient underwent a paracentesis on 12/07/24 with removal of 5 L of ascitic fluid. Fluid studies were unremarkable. Patient was started on Lasix 20 mg daily & Aldactone 50 mg daily. His BUN/Cr are appropriate this AM at 22/.26. K 3.3. No new symptoms/concerns. Review of Systems Gastrointestinal: no abdominal pain Physical Exam Gastrointestinal (Abdomen): Percussion/Palpation: abdomen soft; abdomen nontender Results & Data Results & Data Vital Signs (Past 12 Hours) Vital Signs Temp Pulse Resp BP Pulse Ox O2 Del Method 12/08/24 07:27 37.0 C 72 18 115/62 91 Room Air PG Care Time/CCT Total # of Minutes Spent Total Time Spent with Patient: Total time spent is greater than 50% in coordination of care (as documented) at patient's floor/unit and/or counseling patient: Coding Level of Care Code 98123 SUB INP/OBS CARE 50MIN Diagnoses Other cirrhosis of liver K74.69 Hepatic cirrhosis type: other cirrhosis (1) Cirrhosis of liver Hepatic cirrhosis type: other cirrhosis Qualified Code(s): K74.69 - Other cirrhosis of liver
[2024-12-08] MEDS ORDERED: POLYETHYLENE (MIRALAX) 17 GM PACK PO PRN (12:33)
--- NOTE | 2024-12-08 13:30 | Infectious Disease Consult ---
Date of Service December 08, 2024 Attending Addendum This is a 74 y/o female w/ a hx of fatty liver w/ cirrhosis, chronic thrombocytopenia, chronic anemia, DM2 w/ neuropathy, SSS s/p PPM, CKD III, R knee replacement, and psychiatric conditions, who presented to [facility] on 12/05/24 for worsening R shoulder pain since a fall at home that took place a few days ago: I fell on my right shoulder. He also developed anthony R sided neck pain after the fall. Fever and leukocytosis were noted on admission w/ MRSA bacteremia (12/06: 3 of 4) and MRSA in urine (12/05). XR of shoulder (12/05) showed no acute fracture or dislocation. CT A/P (12/05) showed chronic hepatic cirrhosis w/ evidence of portal venous hypertension including splenomegaly, early cavernous transformation of portal vein and a large amount of abdominal and pelvic ascites. Paracentesis (12/07) showed WBC of 171. Chest CT unremarkable. Currently on CTX and vancomycin iv. He is currently resting comfortably in bed. He again emphasizes that his R shoulder pain and R chin/neck pain started after he fell on them. No back pain or BEAVERS. No obvious respiratory symptoms. He is edentulous. No recent procedure or skin injury. No obvious issue w/ the PPM. No pain on R knee. UA (12/05): LE +1, nit pos, WBC 21-50, WBC casts present Blood cx (12/06): MRSA (3 of 4) Peritoneal fluid (12/07): WBC 171, RBC <2000 Blood cx (12/08): result pending Assessment: Sepsis MRSA bacteremia PPM in place Hx of liver cirrhosis, DM2, SSS, CKD III Allergic to contrast Recommendations: I agree w/ focusing on the MRSA by stoping CTX and continusing vancomycin iv to maintain auc 400-600 or vanco trough 15-20. Need to monitor Cr closely while on vancomycin iv. F/u repeat blood cultures from today. Need echo to rule out infective endocarditis and/or CIED infection as the patient has PPM in place. I am not entirely convinced that his R shoulder is the focus of the infection as the pain started after the fall and trauma to the R shoulder but I am not against further evaluation w/ orthos guidance as needed. Will continue to follow. I saw and evaluated the patient today. I have reviewed the trainee note and agree. Telehealth Information I performed this visit using a real-time telehealth connection between my location and the patients location ([facility]). After connecting through interactive tele-video, patient was identified by name and date of and/or wristband check.Patient (or authorized healthcare advertising representative) was informed that this was a telemedicine visit and it was being conducted confidentially over secure lines. My office door was closed and no one else was present in the room with me.Patient (or authorized healthcare advertising representative) provided consent to proceed with the visit, expressed an understanding of privacy and security of the telemedicine visit, and gave permission to have a hospital advertising representative in the room in order to assist with the visit and to conduct portions of the visit, as needed. I informed the patient (or authorized healthcare advertising representative) that I reviewed their record and presented the opportunity for them to ask any questions regarding the visit today. The patient agreed to participate. Assessment & Plan (1) MRSA bacteremia: (2) Acute pain of right shoulder: Plan patient with likely MRSA bacteremia, pending further identification however likely based on urine culture result. Unclear patient has source, he is fairly definitive that his shoulder pain initiated after the fall as well as his side neck pain. He is at high-risk of infection given liver, kidney as well as diabetes. If no obvious source is identified he will likely need a prolonged course of IV antibiotics. Patient will likely need a AMELIA, unclear if this poses a risk given his liver failure plus-minus varices. Can start with TTE however would suggest AMELIA if feasible if initial echocardiogram is negative given his pacemaker implantation. Would recommend discussion with the Orthopedic Surgery to make them aware of the bacteremia and if they believe this right shoulder is possibly septic in nature and/or if MRI study would help with our differential. Based on his admission it does not seem septic however we do not have a current source. Agree with discontinuation of ceftriaxone and can continue with vancomycin monotherapy, repeat cultures have already been drawn. - TTE, if negative AMELIA - Orthopedic Surgery evaluation, agree with possible MRI of right shoulder, with contrast if able with his contrast allergy - discontinue ceftriaxone - vancomycin IV, per pharmacy Appreciate consultation, please do not hesitate to reach out for any further questions or concerns. Alex Muniz MD PGY5 Infectious Disease History of Present Illness History of Present Illness 74M Dm2, fatty liver disease w chronic thrombocytopenia, SSS s/p pacemaker, R Knee replacement, CKD3, psychiatric disorders presents for worsening right shoulder pain after a fall a e ways prior to admission. Patient had fevers Tmax 39.2, WBC 16, XR of right shoulder w/o fractures. Patient largely incidentally found with likely MRSA bacteremia w 2/4 cultures positive so far and MRSA growth in urine. Abd CT did find ascites and was obtained pending culture, WBC of fluid 171. Orthopedic surgery has evaluated shoulder however does not seem we were aware of the bacteremia at the time. He does not endorse any fevers, chills, shouler pain prior to the fall. He states his, "feet got tangled up". He also endorses slight neck pain that started after the fall as well. No recent antibiotics or recent wound infections. He denies any significant R knee pain/back pain. patient is Edentulous. currently overall feels well. Allergies Allergy/AdvReac Type Severity Reaction Status Date / Time Iodinated Contrast Media AdvReac Intermediate Vomiting Verified 03/24/24 15:16 Home Medications Medication Instructions Recorded Confirmed Type alfuzosin 10 mg tablet,extended 10 mg PO DAILY #90 tabs 09/21/24 12/05/24 Rx release 24 hr allopurinol 100 mg tablet 100 mg PO QAM #30 tabs 09/21/24 12/05/24 Rx ascorbic acid (vitamin C) 500 mg 250 mg (1/2 x 500 mg) PO DAILY #30 09/21/24 12/05/24 Rx tablet,extended release (Vitamin C tabs ER) atorvastatin 80 mg tablet 80 mg PO HS #30 tabs 09/21/24 12/05/24 Rx empagliflozin 25 mg tablet 25 mg PO QAM #30 tabs 09/21/24 12/05/24 Rx ferrous sulfate 325 mg (65 mg 325 mg PO BID #60 tabs 09/21/24 12/05/24 Rx iron) tablet pantoprazole 40 mg tablet,delayed 40 mg PO DAILY #30 tabs 09/21/24 12/05/24 Rx release cholecalciferol (vitamin D3) 25 50 mcg PO DAILY 12/05/24 12/05/24 History mcg (1,000 unit) tablet escitalopram oxalate 5 mg tablet 10 mg PO DAILY 12/05/24 12/05/24 History insulin glargine 100 unit/mL (3 See Rx Instructions .Route .COMPLEX 12/05/24 12/05/24 History mL) subcutaneous pen (Lantus Solostar U-100 Insulin) Patient History Medical History Panic disorder Cirrhosis of liver 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 mellitus Diabetic polyneuropathy Depression due to physical illness Depression with suicidal ideation BPH loc w urin obs/LUTS CHF (congestive heart failure) Paroxysmal atrial fibrillation Colon cancer SOB (shortness of breath) on exertion 1 FLIGHT-"OUT OF SHAPE" Chronic obstructive pulmonary disease History of pulmonary embolus (PE) REMOTE HX / LEG IN A A CAST - NO PROBLEMS SINCE History of kidney stones CKD (chronic kidney disease) stage 3, GFR 30-59 ml/min BMI 34.0-34.9,adult Sleep apnea CPAP/DOESN'T USE Hypertension Dyslipidemia Diabetes mellitus Surgical History Status post cardiac pacemaker procedure S/P colon resection (10/26/21) Laparoscopic Assisted Right Colon Resection, Umbilical Hernia Repair- Singh Ambrose MD, FACS 10/26/2021 History of esophagogastroduodenoscopy (EGD) (02/19/23) Dr. Baker History of colonoscopy 2020 History of total right knee replacement Hx of repair of rotator cuff R&L Hx of foot surgery LEFT HEEL Status post laser lithotripsy of ureteral calculus 12/18/19 History of cholecystectomy Family History Grandmother Diabetes Mother Breast cancer Sister Breast cancer Social History Smoking Status: Former smoker Tobacco Type: Cigarettes packs per day: 1; Second Hand Exposure: No; Do You Dip or Chew Tobacco: No; Hx Alcohol Use: No Hx Substance Use: No Preferred Language: Lao Communication Ability: Effective Electrician Yard Required: No Beliefs That Will Affect Care: None marital status: Current Living Situation: Spouse Current Living Situation Comment: Lives at home with current occupational status: retired How many Children do You have: 1 Feels Safe at Home: No Is there a partner from a previous relationship who is making you feel unsafe now?: No Safety Concerns: Feels Safe At This Time during the past year weight has: remained stable Assistive Devices: Cane and Walker Review of Systems CONSTITUTIONAL: Denies weight loss, fever and chills. HEENT: Denies changes in vision and hearing. RESPIRATORY: Denies SOB and cough. CV: Denies palpitations and CP. GI: Denies abdominal pain, nausea, vomiting and diarrhea. : Denies dysuria and urinary frequency. MSK: Denies myalgia and joint pain. SKIN: Denies rash and pruritus. NEUROLOGICAL: Denies headache and syncope PSYCHIATRIC: Denies recent changes in mood. Denies anxiety and depression. Physical Exam GENERAL: Appears as stated age. No acute distress. Edentulous. SKIN: No rashes or lesions. No obvious ulcerations, no sacral skin breakdown. Right knee with midline incision well healed without obvious tenderness, range of motion abnormalities. NEUROLOGIC: No focal neurological deficits. Cranial nerves grossly intact. Results & Data Vital Signs (Past 12 Hours) Vital Signs Temp Pulse Resp BP Pulse Ox O2 Del Method 12/08/24 07:27 37.0 C 72 18 115/62 91 Room Air Laboratory Results 12/06/24 17:40 Aerobic Blood Culture - Preliminary Blood Staphylococcus aureus Anaerobic Blood Culture - Preliminary Gram positive cocci clusters 12/07/24 Unknown Gram Stain - Final Peritoneal Fluid Aerobic and Anaerobic Culture - Preliminary No growth to date. 12/06/24 17:15 Aerobic Blood Culture - Preliminary Blood Gram positive cocci clusters Anaerobic Blood Culture - Preliminary No growth in Anaerobic bottle after 24 hours. 12/08/24 05:28 Aerobic Blood Culture - Pending Blood Anaerobic Blood Culture - Pending 12/08/24 05:40 Aerobic Blood Culture - Pending Blood Anaerobic Blood Culture - Pending 12/08/24 12/08/24 12/08/24 11:39 07:31 05:28 WBC 6.81 RBC 3.59 L Hgb 9.7 L Hct 30.1 L MCV 83.8 MCH 27.0 MCHC 32.2 RDW Std Deviation 63.5 H RDW Coeff of Rea 20.7 H Plt Count 106 L MPV 9.3 L Sodium 136 Potassium 3.3 L Chloride 101 Carbon Dioxide 31 Anion Gap 4 BUN 22 Creatinine 1.26 Est Cr Clr Drug Dosing 61.2 eGFR 59.48 BUN/Creatinine Ratio 17.5 Glucose 63 L POC Glucose 150 H 81 Calcium 7.5 L Magnesium 1.7 Fluid Neutrophils % Fluid Lymphocytes % Fluid Meso/Macro/Stafford % Fluid Slide Review Fluid Comment Peritoneal Color Peritoneal Appearance Peritoneal WBC (Auto) Peritoneal RBC (Auto) Peritoneal Tot Protein Peritoneal Albumin Peritoneal LDH Peritoneal Amylase 12/07/24 12/07/24 12/07/24 Unknown 20:17 16:42 WBC RBC Hgb Hct MCV MCH MCHC RDW Std Deviation RDW Coeff of Rea Plt Count MPV Sodium Potassium Chloride Carbon Dioxide Anion Gap BUN Creatinine Est Cr Clr Drug Dosing eGFR BUN/Creatinine Ratio Glucose POC Glucose 106 H 110 H Calcium Magnesium Fluid Neutrophils % 22 Fluid Lymphocytes % 39 Fluid Meso/Macro/Stafford % 39 Fluid Slide Review Fluid Comment Peritoneal Color Yellow Peritoneal Appearance Clear Peritoneal WBC (Auto) 171 Peritoneal RBC (Auto) < 2000 Peritoneal Tot Protein < 3.0 Peritoneal Albumin < 1.5 Peritoneal LDH 60 Peritoneal Amylase < 10 Diagnostic Findings Shoulder X-Ray 12/05/24 11:40 XR shoulder RT min 2V routine CLINICAL HISTORY: R shoulder pain s/p fall COMPARISON: None FINDINGS: Alignment of the right shoulder is anatomic. There is no acute fracture. There is moderate acromioclavicular joint osteoarthritis. There is also mild osteophytosis of the glenohumeral joint. Left subclavian pacer leads are partially imaged. Electronic device of the right upper arm is present. IMPRESSION: 1. No fracture or dislocation within the right shoulder. 2. Moderate degenerative changes within the right shoulder. ACT 112: Negative or not required by law. Electronically signed by: Joshua Sinclair M.D. 12/05/2024 12:26 PM Abdomen/Pelvis CT 12/05/24 14:06 REASON FOR EXAM: Right shoulder pain. Ground-level fall on .. HISTORY: Right shoulder pain EXAM: CT abdomen/pelvis without contrast Comparison exam: CT abdomen/pelvis 11/03/2021. FINDINGS: Liver remains normal in size but is quite nodular in appearance suggesting chronic hepatic cirrhosis. No definite focal liver lesion seen on unenhanced only images. Spleen is mildly enlarged. Moderate amount of ascites is seen in the upper abdomen. Mild venous prominence suggesting possible early cavernous transformation of the portal vein. Pancreas unremarkable. Clips from cholecystectomy are noted. Adrenal glands are unremarkable. Right kidney shows 5 mm lower pole calculus but no hydronephrosis. Left kidney shows 3 mm lower pole calculus and 4.5 the lower pole cyst but no hydronephrosis. Moderate amount of ascites is also present in the pelvis. No evidence of bowel obstruction or free intraperitoneal air is seen at this time. There is some diffuse thickening of the wall of the urinary bladder with mild prostatic enlargement. Degenerative changes but no acute bony trauma identified at this time. IMPRESSION: 1. Chronic hepatic cirrhosis with evidence of portal venous hypertension including splenomegaly, early cavernous transformation of portal vein and a large amount of abdominal and pelvic ascites. 2. Bilateral renal calculi without hydronephrosis. Left renal cysts. Electronically signed by Chris Jay 12-05-2024 3:[address] 12/05/24 14:06 HISTORY: Right shoulder pain. Ground-level fall on , fell onto right side. Did not strike head. EXAM: CT chest diagnostic without contrast Comparison: Portable chest 09/14/2024 FINDINGS: Lung zones remain expanded without pneumothorax or significant pleural effusion. Mild areas of linear atelectasis/fibrosis are seen in both lower lobes similar to the previous study. Otherwise no acute infiltrate or edema is seen at this time. No significant abnormal hilar or mediastinal mass or adenopathy is seen. Left-sided pacemaker is present. Severe coronary artery calcifications are present. No acute bony trauma is identified at the examined levels. IMPRESSION: 1. Negative for acute traumatic abnormalities. 2. Mild areas of atelectasis/scarring/fibrosis in the lower lobes bilaterally. 3. Severe coronary artery calcification. Electronically signed by Chris Jay 12-05-2024 3:07 PM Chest X-Ray 12/06/24 20:53 Exam(s): XR CXR 1 VIEW EXAM: XR Chest, 1 View CLINICAL HISTORY: Reason for exam: low o2. TECHNIQUE: Frontal view of the chest. COMPARISON: 09/14/[address] chest: 12/05/2024 FINDINGS: Lungs: There is mild vascular congestion. There is bibasilar atelectasis, left greater than right. There is a probable small left basilar pleural effusion. Pleural space: No pneumothorax. Heart: Unremarkable. No cardiomegaly. Mediastinum: Unremarkable. Normal mediastinal contour. Bones/joints: Unremarkable. No acute fracture. Tubes, lines and devices: There is mild chordee megaly. A cardiac pacemaker projects over the left chest. IMPRESSION: There is mild vascular congestion. There is bibasilar atelectasis, left greater than right. There is a probable small left basilar pleural effusion. Electronically signed by: Noam Roca MD 12/06/24 23:49 PM Paracentesis Ultrasound 12/07/24 11:53 ULTRASOUND-GUIDED PARACENTESIS CLINICAL HISTORY: Ascites PROCEDURE: Procedure and risks were explained. Informed consent was obtained. A final timeout was completed. The abdomen was prepped and draped in sterile fashion. 1% lidocaine was utilized for skin anesthesia. Utilizing ultrasound guidance, a 5 Tamazight safety centesis catheter was advanced into the left lower quadrant pocket of ascites. Ultrasound images were obtained. 5 L of yellow-colored ascites fluid was removed, with 1 L sent to lab. The catheter was removed and Band-Aid applied. The patient tolerated the procedure well. Vital signs will be monitored postprocedure. IMPRESSION: Ultrasound-guided paracentesis as above. Performed, dictated, and signed by Andrea Gamboa PA-C; to be co-signed by Dr. Chris Aceves. Electronically signed by: Chris Aceves M.D. 12/07/2024 3:55 PM
[2024-12-08] MEDS: POLYETHYLENE (MIRALAX) 17 GM PACK PO ONE (13:34)
--- NOTE | 2024-12-08 15:49 | Hospitalist Progress Note ---
Date of Service December 08, 2024 Assessment & Plan (1) Acute pain of right shoulder: (2) Fall from standing: (3) Generalized weakness: (4) Iron deficiency anemia: (5) Abdominal ascites: (6) Noncompliance with medications: (7) Diabetic polyneuropathy: (8) CKD (chronic kidney disease) stage 3, GFR 30-59 ml/min: (9) Hypertension: (10) Diabetes mellitus: (11) Dyslipidemia: (12) Cirrhosis of liver: Plan Patient is a 74 yr male with cirrhosis due to fatty liver disease, DM2 with polyneuropathy, SSS s/p PPM, HTN, CKD3, major depression with hx suicidal ideation, panic disorder, and other history as outlined below who presents to the ED today with worsening right shoulder pain since fall at home a few days ago. Pt reports being non-compliant with diuretic regimen and notes progressive ascites and edema. On work-up in the ED, he was noted to have leukocytosis with WBC count of 16.13, UA pending. Renal function at baseline. Chronic thrombocytopenia related to cirrhosis that is unchanged from baseline. Pt was referred for admission for further work-up and management related to generalized weakness and fall. Mechanical Fall Generalized weakness Right shoulder pain likely due to osteoarthritis/chronic rotator cuff tear --Shoulder X ray:No fracture or dislocation within the right shoulder. Moderate degenerative changes within the right shoulder. Fall precautions PT OT Continue right upper extremity sling for comfort Given persistent right shoulder pain Patient declined cortisone injection Orthopedics consulted Consider MRI shoulder if no improvement Urinary tract infection Staph bacteremia--POA Urine culture grew MRSA Blood cultures: Staph aureus Rule out infective endocarditis H/O MRSA Empirically on ceftriaxone, vancomycin>> transition to vancomycin alone Follow-up final cultures Appreciate ID input Check resting echo Cardiology consulted as well as may need AMELIA Dysphagia Aspiration precautions Speech therapy eval Continue minced and moist diet with thin liquids as recommended by speech therapy GARCES cirrhosis decompensated Progressive ascites and peripheral edema --CT ABD:Chronic hepatic cirrhosis with evidence of portal venous hypertension including splenomegaly, early cavernous transformation of portal vein and a large amount of abdominal and pelvic ascites. Bilateral renal calculi without hydronephrosis. Left renal cysts. -Saturating well on room air -S/P abdominal paracentesis Received IV Lasix Monitor volume status, daily weight, low-sodium diet Appreciate GI input Will need to follow-up with outpatient hepatology on discharge Continue Lasix, Aldactone Iron deficiency anemia currently receiving iron infusions through hematology Dr. Salvador Sewell Continue oral iron supplement Monitor CBC H/O colon adenocarcinoma S/P laparoscopic assisted right colon resection and umbilical hernia repair on 11/01/[address] Salvador Sewell as outpatient DM II - on Lantus 48 units in the AM, 40 units in the PM Continue insulin per protocol Glycemic pharmacist consulted Monitor blood glucose levels Depression H/O suicidal ideations Continue outpatient medications DVT Px: SCDs, SQ heparin Code status: full code Disposition PT OT recommends rehab placement Admission and Anticipated Discharge Date Admission Date: December 05, 2024 Subjective Patient is seen and examined at bedside Reports right shoulder pain Poor historian Denies any chest pain, dyspnea, nausea, vomiting, abdominal pain Blood cultures growing Staph aureus Review of Systems Review of Systems: All systems reviewed & are unremarkable except as noted in Subjective Physical Exam Physical Exam: Physical Exam: Vitals signs as noted above General Appearance:Moderately built and nourished, no apparent distress, chronic ill apperaing Head: normocephalic, Atraumatic Eyes: normal inspection, EOMI Neck: supple, Trachea midline Respiratory/Chest: Normal breath sounds, CTA, No accessory muscle use Cardiovascular: S1, S2, +murmur Abdomen/GI:Soft, Non tender, distended, Bowel sounds present Extremities/Musculoskeletal:normal inspection, 3+ edema, chronic venous stasis changes, RUE in sling Neurologic/Psych:AAOX2, grossly no focal neurological deficits Skin: normal color, warm Results & Data Results & Data Vital Signs (Past 12 Hours) Vital Signs Temp Pulse Resp BP Pulse Ox O2 Del Method 12/08/24 15:29 37.0 C 75 18 117/70 93 Room Air 12/08/24 07:27 37.0 C 72 18 115/62 91 Room Air Laboratory Results Short CBC 12/08/24 Range/Units 05:28 WBC 6.81 (4.8-10.8) K/ul Hgb 9.7 L (14.0-18.0) g/dl Hct 30.1 L (42.0-52.0) % Plt Count 106 L (130-400) K/uL BMP 12/08/24 05:28 Sodium 136 Potassium 3.3 L Chloride 101 Carbon Dioxide 31 BUN 22 Creatinine 1.26 Glucose 63 L Calcium 7.5 L (2) Fall from standing Encounter type: initial encounter Qualified Code(s): W19.XXXA - Unspecified fall, initial encounter (4) Iron deficiency anemia Iron deficiency anemia type: unspecified iron deficiency Qualified Code(s): D50.9 - Iron deficiency anemia, unspecified (5) Abdominal ascites Ascites type: other type Qualified Code(s): R18.8 - Other ascites (7) Diabetic polyneuropathy Diabetes mellitus type: type 2 Qualified Code(s): E11.42 - Type 2 diabetes mellitus with diabetic polyneuropathy (8) CKD (chronic kidney disease) stage 3, GFR 30-59 ml/min Chronic kidney disease stage 3 subtype: unspecified whether 3a or 3b Qualified Code(s): N18.30 - Chronic kidney disease, stage 3 unspecified (9) Hypertension Hypertension type: unspecified Qualified Code(s): I10 - Essential (primary) hypertension (10) Diabetes mellitus Diabetes mellitus type: type 2 Diabetes mellitus senior living insulin use: with senior living use Diabetes mellitus complication status: with neurologic complications Diabetes mellitus complication detail: with polyneuropathy Qualified Code(s): E11.42 - Type 2 diabetes mellitus with diabetic polyneuropathy; 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
--- NOTE | 2024-12-08 19:47 | Cardiology Consultation ---
Date of Consultation December 08, 2024 Assessment & Plan (1) MRSA bacteremia: (2) Abdominal ascites: (3) Cirrhosis of liver: (4) Iron deficiency anemia: Patient with MRSA bacteremia in the setting of permanent pacemaker which had been placed in 2022. Pacemaker pocket without erythema or swelling. Infectious disease service input noted and appreciated, and I share concern with regards to the risk of an implanted cardiac device infection. The patient however has a history of cirrhosis due to nonalcoholic steatohepatitis. He had previously been diagnosed with grade 2 esophageal varices. His most recent EGD took place [facility] [employer] [facility] in March, and grade 1 esophageal varices noted along with evidence of portal hypertensive gastropathy . The procedure note from March, recommends repeat EGD at a 6-month interval and therefore the patient is overdue. Will proceed with a transthoracic echocardiogram tomorrow. I am going to make the patient n.p.o. after midnight. Transesophageal echocardiogram likely indicated, however would need to discuss evaluation with GI as his varices likely have to be revisualized to ensure stability before he could be performed. History of Present Illness Attending Physician: Gael Pineda MD History of Present Illness Mr Boykin is a 74-year-old male seen in cardiology consultation per the request of Dr. Pineda for the evaluation of MRSA bacteremia in the setting of a History of a permanent pacemaker. The patient presented on 12/05/2024 after a fall at home with right shoulder discomfort. Had been found to have volume overload with lower extremity edema and abdominal ascites and underwent ultrasound-guided paracentesis yesterday 12/07/2024 yielding 5 L of fluid. He denies subjective fevers or chills. History: Adenocardinoma of the colon S/P laparoscopic assisted right colon resection and umbilical hernia repair on 11/01/2021 Paroxysmal atrial fibrillation with history of bifascicular block In May, he presented with symptomatic bradycardia transient third- degree heart block and therefore underwent implantation of a dual-chamber Medtronic permanent pacemaker Iron deficiency anemia GARCES cirrhosis Portal hypertensive gastropathy and grade 1 Esophageal varices and portal hypertensive gastropathy Allergies Allergy/AdvReac Type Severity Reaction Status Date / Time Iodinated Contrast Media AdvReac Intermediate Vomiting Verified 03/24/24 15:16 Home Medications Medication Instructions Recorded Confirmed Type alfuzosin 10 mg tablet,extended 10 mg PO DAILY #90 tabs 01/06/25 03/22/25 Rx release 24 hr allopurinol 100 mg tablet 100 mg PO QAM #30 tabs 09/21/24 12/05/24 Rx ascorbic acid (vitamin C) 500 mg 250 mg (1/2 x 500 mg) PO DAILY #30 09/21/24 12/05/24 Rx tablet,extended release (Vitamin C tabs ER) atorvastatin 80 mg tablet 80 mg PO HS #30 tabs 09/21/24 12/05/24 Rx empagliflozin 25 mg tablet 25 mg PO QAM #30 tabs 09/21/24 12/05/24 Rx ferrous sulfate 325 mg (65 mg 325 mg PO BID #60 tabs 09/21/24 12/05/24 Rx iron) tablet pantoprazole 40 mg tablet,delayed 40 mg PO DAILY #30 tabs 09/21/24 12/05/24 Rx release cholecalciferol (vitamin D3) 25 50 mcg PO DAILY 12/05/24 12/05/24 History mcg (1,000 unit) tablet escitalopram oxalate 5 mg tablet 10 mg PO DAILY 12/05/24 12/05/24 History insulin glargine 100 unit/mL (3 See Rx Instructions .Route .COMPLEX 12/05/24 0 12/05/24 History mL) subcutaneous pen (Lantus Solostar U-100 Insulin) Patient History Medical History Panic disorder Cirrhosis of liver 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 mellitus Diabetic polyneuropathy Depression due to physical illness Depression with suicidal ideation BPH loc w urin obs/LUTS CHF (congestive heart failure) Paroxysmal atrial fibrillation Colon cancer SOB (shortness of breath) on exertion 1 FLIGHT-"OUT OF SHAPE" Chronic obstructive pulmonary disease History of pulmonary embolus (PE) REMOTE HX / LEG IN A A CAST - NO PROBLEMS SINCE History of kidney stones CKD (chronic kidney disease) stage 3, GFR 30-59 ml/min BMI 34.0-34.9,adult Sleep apnea CPAP/DOESN'T USE Hypertension Dyslipidemia Diabetes mellitus Surgical History Status post cardiac pacemaker procedure S/P colon resection (10/26/21) Laparoscopic Assisted Right Colon Resection, Umbilical Hernia Repair- Singh Ambrose MD, FACS 10/26/2021 History of esophagogastroduodenoscopy (EGD) (02/19/23) Dr. Baker History of colonoscopy 2020 History of total right knee replacement Hx of repair of rotator cuff R&L Hx of foot surgery LEFT HEEL Status post laser lithotripsy of ureteral calculus 12/18/19 History of cholecystectomy Family History Grandmother Diabetes Mother Breast cancer Sister Breast cancer Social History Smoking Status: Former smoker Tobacco Type: Cigarettes packs per day: 1; Second Hand Exposure: No; Do You Dip or Chew Tobacco: No; Hx Alcohol Use: No Hx Substance Use: No Preferred Language: Lebanese Communication Ability: Effective Sustainability Consultant Required: No Beliefs That Will Affect Care: None marital status: Current Living Situation: Spouse Current Living Situation Comment: Lives at home with current occupational status: retired How many Children do You have: 1 Feels Safe at Home: No Is there a partner from a previous relationship who is making you feel unsafe now?: No Safety Concerns: Feels Safe At This Time during the past year weight has: remained stable Assistive Devices: Cane and Walker Review of Systems Review of Systems: All systems reviewed & are unremarkable except as noted in HPI & below Physical Exam Physical Exam: General: no acute distress and stated age Eyes: conjunctiva are pink and non-injected, sclera clear Neck: normal jugular venous pulse, no hepatojugular reflux Chest: normal shape and normal respiratory effort - ongoing ascites noted sternoclavicular pacemaker pocket clean dry and intact Lungs: clear to auscultation and percussion Cardiac Exam: - regular heart sounds, no murmurs, rubs, or gallops, no jugular venous distention Abdomen: Distended, nontender, Extremities: 1-2+ bilateral lower extremity edema Neuro:awake, conversant, follows commands, no focal motor deficits Psych: appropriate affect and insight. Results & Data Vital Signs (Past 12 Hours) Vital Signs Temp Pulse Resp BP Pulse Ox O2 Del Method 12/08/24 15:29 37.0 C 75 18 117/70 93 Room Air Laboratory Results CBC 12/08/24 Range/Units 05:28 WBC 6.81 (4.8-10.8) K/ul RBC 3.59 L (4.70-6.10) M/uL Hgb 9.7 L (14.0-18.0) g/dl Hct 30.1 L (42.0-52.0) % Plt Count 106 L (130-400) K/uL Comprehensive Metabolic Panel 12/08/24 Range/Units 05:28 Sodium 136 (136-145) mmol/L Potassium 3.3 L (3.5-5.1) mmol/L Chloride 101 (98-107) mmol/L Carbon Dioxide 31 (21-32) mmol/L BUN 22 (6-23) mg/dl Creatinine 1.26 (0.6-1.4) mg/dl Glucose 63 L (70-99(Fasting)) mg/dl Calcium 7.5 L (8.6-10.3) mg/dl Intake and Output 12/08/24 12/08/24 12/08/24 06:59 14:59 22:59 Intake Total 1010 / 1930 550 / 550 Output Total 450 / 800 600 / 600 Balance 560 / 1130 -50 / -50 Intake: IV 530 / 950 Vancomycin HCl 1,500 mg In 530 / 530 Sodium Chloride 0.9% 500 ml @ 200 mls/hr IV Q24H [facility] Rx#: [id number] Oral 480 / 480 550 / 550 Output: Urine 600 / 600 Urine Amount (Catheter) 450 / 800 Dick/Indwelling 450 / 800 Other: Weight 97.3 kg Weight Measurement Method Built in [facility] (2) Abdominal ascites Ascites type: other type Qualified Code(s): R18.8 - Other ascites (3) Cirrhosis of liver Hepatic cirrhosis type: other cirrhosis Qualified Code(s): K74.69 - Other cirrhosis of liver (4) Iron deficiency anemia Iron deficiency anemia type: unspecified iron deficiency Qualified Code(s): D50.9 - Iron deficiency anemia, unspecified
[2024-12-08] MEDS: LANTUS PER UNIT CHARGE SQ SCH (21:48)
[2024-12-09 05:56] LABS: Hematocrit (blood only) 29.3 % (42.0-52.0); Hemoglobin 9.4 g/dl (14.0-18.0); Mean Corpuscular Hemoglobin 27.1 pg (25.0-34.0); Mean Corpuscular Hgb Conc 32.1 g/dL (32.0-36.0); Mean Corpuscular Volume 84.4 fL (80.0-100.0); Mean Platelet Volume 9.3 fL (9.4-12.4); Platelet Count 100 K/uL (130-400); RDW Coefficient of Variation 20.1 % (11.5-14.5); RDW Standard Deviation 62.6 fL (36.4-46.3); Red Blood Count 3.47 M/uL (4.70-6.10); White Blood Count 4.94 K/ul (4.8-10.8)
[2024-12-09 06:07] LABS: Albumin Level 2.5 gm/dl (3.4-5.0); BUN Creatinine Ratio 17.9 (10-20); Bilirubin,Total 1.5 mg/dl (0.2-1.0); Calcium 7.5 mg/dl (8.6-10.3); Globulin 2.6 gm/dl (2.5-4.0); Magnesium 1.8 mg/dl (1.7-2.4); Potassium 3.8 mmol/L (3.5-5.1); Total Protein 5.1 gm/dl (6.0-8.3)
--- NOTE | 2024-12-09 08:05 | Hospitalist Progress Note ---
Date of Service December 09, 2024 Assessment & Plan (1) Acute pain of right shoulder: (2) Fall from standing: (3) Generalized weakness: (4) Iron deficiency anemia: (5) Abdominal ascites: (6) Noncompliance with medications: (7) Diabetic polyneuropathy: (8) CKD (chronic kidney disease) stage 3, GFR 30-59 ml/min: (9) Hypertension: (10) Diabetes mellitus: (11) Dyslipidemia: (12) Cirrhosis of liver: Plan Patient is a 74 yr male with cirrhosis due to fatty liver disease, DM2 with polyneuropathy, SSS s/p PPM, HTN, CKD3, major depression with hx suicidal ideation, panic disorder, and other history as outlined below who presents to the ED with worsening right shoulder pain since fall at home a few days ago. Pt reports being non-compliant with diuretic regimen and notes progressive ascites and edema. On work-up in the ED, he was noted to have leukocytosis with WBC cou nt of 16.13, UA pending. Renal function at baseline. Chronic thrombocytopenia related to cirrhosis that is unchanged from baseline. Pt was referred for admission for further work-up and management related to generalized weakness and fall. Mechanical Fall Generalized weakness Right shoulder pain likely due to osteoarthritis/chronic rotator cuff tear --Shoulder X ray:No fracture or dislocation within the right shoulder. Moderate degenerative changes within the right shoulder. Fall precautions PT OT Continue right upper extremity sling for comfort Orthopedics consulted - Right shoulder pain, DJD, probable rotator cuff acute on chronic tear Continue activity and range of motion as tolerated. Sling for comfort. Ice to right shoulder as needed for pain or swelling. Follow-up in the office as an outpatient in 2 to 4 weeks or as needed. Continue range of motion with PT and OT. Please call [phone] with any questions or concerns. Consider MRI shoulder if no improvement Urinary tract infection Staph bacteremia--POA Urine culture grew MRSA Blood cultures: MRSA Rule out infective endocarditis H/O MRSA Empirically on ceftriaxone, vancomycin>> transitioned to vancomycin alone as per ID Follow-up final cultures Appreciate ID input Echo TTE obtained, plan for AMELIA tmrw Cardiology consulted as well as may need AMELIA Dysphagia Aspiration precautions Speech therapy eval Continue minced and moist diet with thin liquids as recommended by speech therapy GARCES cirrhosis decompensated Progressive ascites and peripheral edema --CT ABD:Chronic hepatic cirrhosis with evidence of portal venous hypertension including splenomegaly, early cavernous transformation of portal vein and a large amount of abdominal and pelvic ascites. Bilateral renal calculi without hydronephrosis. Left renal cysts. -Saturating well on room air -S/P abdominal paracentesis Received IV Lasix Monitor volume status, daily weight, low-sodium diet Appreciate GI input Will need to follow-up with outpatient hepatology on discharge Continue Lasix, Aldactone Iron deficiency anemia currently receiving iron infusions through hematology Dr. Salvador Sewell Continue oral iron supplement Monitor CBC H/O colon adenocarcinoma S/P laparoscopic assisted right colon resection and umbilical hernia repair on 11/01/[address] Salvador Sewell as outpatient DM II - on Lantus 48 units in the AM, 40 units in the PM Continue insulin per protocol Glycemic pharmacist consulted Monitor blood glucose levels Depression H/O suicidal ideations Continue outpatient medications DVT Px: SCDs, SQ heparin Code status: full code Disposition PT OT recommends rehab placement Admission and Anticipated Discharge Date Admission Date: December 05, 2024 Subjective Pt seen in follow up of MRSA bacteremia Presented w/ fall, shoulder pain Pt seen lying in bed in NAD. Underwent EGD today, plan for AMELIA tmrw w/ cardiology Currently pt denies any discomfort, denies chest pain, shortness of breath or abd. pain + R shoulder pain w/ movement Review of Systems Review of Systems: All systems reviewed & are unremarkable except as noted in Subjective Physical Exam Physical Exam: General Appearance:Moderately built and nourished, no apparent distress, chronic ill appearing Head: normocephalic, Atraumatic Eyes: normal inspection, EOMI Neck: supple Respiratory/Chest: Normal breath sounds, CTA, No accessory muscle use Cardiovascular: S1, S2, +murmur Abdomen/GI:Soft, Non tender, distended, Bowel sounds present Extremities/Musculoskeletal:normal inspection, 2+ edema, chronic venous stasis changes, RUE in sling Neurologic/Psych: awake, alert, answers simple questions appropriately, speech fluent, moves extremities Skin: normal color, warm Results & Data Results & Data Vital Signs (Past 12 Hours) Vital Signs Temp Pulse Pulse Resp BP Pulse Ox O2 Del Method 12/09/24 07:40 36.6 C 63 62 15 119/71 92 Room Air 12/08/24 21:13 Room Air 12/08/24 20:49 36.8 C 71 18 118/68 92 Room Air Laboratory Results 12/09/24 12/09/24 12/08/24 Range/Units 07:35 05:20 19:52 WBC 4.94 (4.8-10.8) K/ul RBC 3.47 L (4.70-6.10) M/uL Hgb 9.4 L (14.0-18.0) g/dl Hct 29.3 L (42.0-52.0) % MCV 84.4 (80.0-100.0) fL MCH 27.1 (25.0-34.0) pg MCHC 32.1 (32.0-36.0) g/dL RDW Std Deviation 62.6 H (36.4-46.3) fL RDW Coeff of Rea 20.1 H (11.5-14.5) % Plt Count 100 L (130-400) K/uL MPV 9.3 L (9.4-12.4) fL Sodium 134 L (136-145) mmol/L Potassium 3.8 (3.5-5.1) mmol/L Chloride 99 (98-107) mmol/L Carbon Dioxide 31 (21-32) mmol/L Anion Gap 4 (3-11) BUN 21 (6-23) mg/dl Creatinine 1.17 (0.6-1.4) mg/dl Est Cr Clr Drug Dosing 66.0 ml/min eGFR 65.01 BUN/Creatinine Ratio 17.9 (10-20) Glucose 165 H (70-99(Fasting)) mg/dl POC Glucose 172 H 142 H (70-99) mg/dl Calcium 7.5 L (8.6-10.3) mg/dl Magnesium 1.8 (1.7-2.4) mg/dl Total Bilirubin 1.5 H (0.2-1.0) mg/dl AST 45 H (13-39) U/L ALT 22 (7-52) U/L Alkaline Phosphatase 167 H (34-104) U/L Total Protein 5.1 L (6.0-8.3) gm/dl Albumin 2.5 L (3.4-5.0) gm/dl Globulin 2.6 (2.5-4.0) gm/dl Albumin/Globulin Ratio 1.0 (0.9-2) Fluid Neutrophils % % Fluid Lymphocytes % % Fluid Meso/Macro/[place] % % Fluid Slide Review Random Vancomycin 22.9 H (10-20) mcg/ml 12/08/24 12/08/24 12/07/24 Range/Units 16:43 11:39 Unknown WBC (4.8-10.8) K/ul RBC (4.70-6.10) M/uL Hgb (14.0-18.0) g/dl Hct (42.0-52.0) % MCV (80.0-100.0) fL MCH (25.0-34.0) pg MCHC (32.0-36.0) g/dL RDW Std Deviation (36.4-46.3) fL RDW Coeff of Rea (11.5-14.5) % Plt Count (130-400) K/uL MPV (9.4-12.4) fL Sodium (136-145) mmol/L Potassium (3.5-5.1) mmol/L Chloride (98-107) mmol/L Carbon Dioxide (21-32) mmol/L Anion Gap (3-11) BUN (6-23) mg/dl Creatinine (0.6-1.4) mg/dl Est Cr Clr Drug Dosing ml/min eGFR BUN/Creatinine Ratio (10-20) Glucose (70-99(Fasting)) mg/dl POC Glucose 168 H 150 H (70-99) mg/dl Calcium (8.6-10.3) mg/dl Magnesium (1.7-2.4) mg/dl Total Bilirubin (0.2-1.0) mg/dl AST (13-39) U/L ALT (7-52) U/L Alkaline Phosphatase (34-104) U/L Total Protein (6.0-8.3) gm/dl Albumin (3.4-5.0) gm/dl Globulin (2.5-4.0) gm/dl Albumin/Globulin Ratio (0.9-2) Fluid Neutrophils % 22 % Fluid Lymphocytes % 39 % Fluid Meso/Macro/[place] % 39 % Fluid Slide Review Random Vancomycin (10-20) mcg/ml Medications Administered Current Inpatient Medications Allopurinol (Allopurinol 100 Mg Tab) 100 mg PO QAM [facility] Stop: 01/05/25 08:59 Last Admin: 12/08/24 10:03 Dose: 100 mg Ascorbic Acid (Ascorbic Acid 500 Mg Tab) 250 mg PO DAILY [facility] Stop: 01/05/25 08:59 Last Admin: 12/08/24 10:03 Dose: 250 mg Atorvastatin Calcium (Atorvastatin 40 Mg Tab) 80 mg PO HS [facility] Stop: 01/04/25 20:59 Last Admin: 12/08/24 21:14 Dose: 80 mg Dextrose (Dextrose 50% 50 Ml Syringe) 25 - 50 ml IV UD PRN; Protocol PRN Reason: Hypoglycemia Protocol Stop: 01/04/25 20:50 Escitalopram Oxalate (Escitalopram Oxalate 10 Mg Tab) 10 mg PO DAILY [facility] Stop: 01/05/25 08:59 Last Admin: 12/08/24 10:03 Dose: 10 mg Ferrous Sulfate (Ferrous Sulfate 325 Mg Tab) 325 mg PO BID [facility] Stop: 01/04/25 20:59 Last Admin: 12/08/24 21:13 Dose: 325 mg Furosemide (Furosemide 20 Mg Tab) 20 mg PO QAM [facility] Stop: 01/07/25 08:59 Last Admin: 12/08/24 10:02 Dose: 20 mg Glucagon (Glucagon For Inj 1 Mg Vial) 1 mg SQ UD PRN; Protocol PRN Reason: Hypoglycemia Protocol Stop: 01/04/25 20:50 Glucose (Glucose 40% Gel 15 Gm Tube) 15 - 30 gm PO UD PRN; Protocol PRN Reason: Hypoglycemia Protocol Stop: 01/04/25 20:50 Glucose (Glucose 10 Tab/Tube) 4 - 8 tab PO UD PRN; Protocol PRN Reason: Hypoglycemia Protocol Stop: 01/04/25 20:50 Heparin Sodium (Porcine) (Heparin Sod 5,000 Unit/0.5 Ml Vial) 5,000 units SQ Q12 [facility] Stop: 01/05/25 20:59 Last Admin: 12/08/24 21:14 Dose: 5,000 units Vancomycin HCl 1,250 mg/ (Sodium Chloride) 275 mls @ 200 mls/hr IV Q18H [facility] Stop: 12/20/24 14:59 Insulin Aspart (Insulin Aspart Per Unit Charge) 0 units SC ACHS [facility] Stop: 01/04/25 20:59 Last Admin: 12/08/24 21:47 Dose: Not Given Lidocaine (Lidocaine 5% 1 Patch) 1 patch TD Q24H [facility] Stop: 01/04/25 17:59 Last Admin: 12/08/24 17:56 Dose: 1 patch Magnesium Chloride (Magnesium Chloride W/Calcium 64mg Delayed Rel Tab) 64 mg PO BID [facility] Stop: 01/06/25 20:59 Last Admin: 12/08/24 21:15 Dose: 64 mg Miscellaneous (Remove Lidoderm Patch) 1 each N/A DAILY@0600 [facility] Stop: 01/05/25 05:59 Last Admin: 12/09/24 05:52 Dose: 1 each Miscellaneous (Carbohydrates For Hypoglycemia ) 15 - 30 gm PO UD PRN PRN Reason: Hypoglycemia Protocol Stop: 01/04/25 20:50 Miscellaneous Information (Pharmacy Glycemic Mgmt Consult) 1 each N/A UD PRN PRN Reason: Consult Stop: 01/04/25 20:50 Miscellaneous Information (Vancomycin Consult Active) 1 each N/A UD PRN PRN Reason: Consult Stop: 01/05/25 16:44 Oxycodone HCl (Oxycodone Hcl Ir 5 Mg Tab (Immediate Release)) 5 mg PO Q8H PRN PRN Reason: Severe Pain (Scale 7, 8, 9,10) Stop: 12/19/24 17:02 Last Admin: 12/08/24 11:10 Dose: 5 mg Pantoprazole Sodium (Pantoprazole 40 Mg Tab) 40 mg PO DAILY [facility] Stop: 01/05/25 08:59 Last Admin: 12/08/24 10:02 Dose: 40 mg Polyethylene Glycol (Polyethylene (Miralax) 17 Gm Pack) 17 gm PO DAILY PRN PRN Reason: Constipation Stop: 01/07/25 12:32 Spironolactone (Spironolactone 25 Mg Tab) 50 mg PO QAM [facility] Stop: 01/07/25 08:59 Last Admin: 12/08/24 10:01 Dose: 50 mg Tamsulosin HCl (Tamsulosin Hcl 0.4 Mg Cap) 0.4 mg PO DAILY [facility] Stop: 01/05/25 08:59 Last Admin: 12/08/24 10:02 Dose: 0.4 mg Trolamine Salicylate (Trolamine Salicylate 10% Crm 255 Appln/85 Gm Tube) 1 appln EXT Q8 [facility] Stop: 01/04/25 17:29 Last Admin: 12/09/24 05:52 Dose: 1 appln Vitamin D (Cholecalciferol 25 Mcg (1000 Units) Tab) 50 mcg PO DAILY [facility] Stop: 01/05/25 08:59 Last Admin: 12/08/24 10:03 Dose: 50 mcg (2) Fall from standing Encounter type: initial encounter Qualified Code(s): W19.XXXA - Unspecified fall, initial encounter (4) Iron deficiency anemia Iron deficiency anemia type: unspecified iron deficiency Qualified Code(s): D50.9 - Iron deficiency anemia, unspecified (5) Abdominal ascites Ascites type: other type Qualified Code(s): R18.8 - Other ascites (7) Diabetic polyneuropathy Diabetes mellitus type: type 2 Qualified Code(s): E11.42 - Type 2 diabetes mellitus with diabetic polyneuropathy (8) CKD (chronic kidney disease) stage 3, GFR 30-59 ml/min Chronic kidney disease stage 3 subtype: unspecified whether 3a or 3b Qualified Code(s): N18.30 - Chronic kidney disease, stage 3 unspecified (9) Hypertension Hypertension type: unspecified Qualified Code(s): I10 - Essential (primary) hypertension (10) Diabetes mellitus Diabetes mellitus complication detail: with polyneuropathy Diabetes mellitus complication status: with neurologic complications Diabetes mellitus residential insulin use: with rat exterminator use Diabetes mellitus type: type 2 Qualified Code(s): E11.42 - Type 2 diabetes mellitus with diabetic polyneuropathy; Z79.4 - exterminator helper termite (current) use of insulin (12) Cirrhosis of liver Hepatic cirrhosis type: other cirrhosis Qualified Code(s): K74.69 - Other cirrhosis of liver
--- NOTE | 2024-12-09 08:50 | History & Physical Bridge Note ---
Date of Service December 09, 2024 History & Physical Bridge Note I have examined the patient, reviewed the History & Physical and in the interval since the performance of the History & Physical I have noted the following changes of clinical significance: no changes noted Discussed with cardiology. Given patient's staph bacteremia, the patient is planned for AMELIA with cardiology to r/o endocarditis. Cardiology has requested GI evaluation of his esophageal varices prior to their AMELIA. Patient has known variceal history, but is questionably compliant with his Nadolol. Keep NPO and proceed with EGD today for further evaluation. Patient is agreeable to this.
--- NOTE | 2024-12-09 09:39 | Pharmacy Report ---
Pharmacy PK ABX Note - Date of Service December 09, 2024 - Assessment and Plan Assessment 12/09: * Blood cultures x 2 from 12/06 finalized as growing MRSA, vanco EULOGIO=1 * Preliminary peritoneal cultures from 12/07 are NGTD. * Preliminary repeat blood cultures x 2 from 12/08 are NGTD. * Currently afebrile and without leukocytosis Day #4 vancomycin, ceftriaxone discontinued 12/08 12/07: * Renal function declining so vancomycin changed to 1500mg iv q 24 hours starting at 2100 tonight. * Urine from 12/05 grew MRSA, vanco EULOGIO= 1 * Blood x 2 from 12/06 grew gram positive cocci in clusters (prelim) -[facility] detected MRSA. 12/06: 74 year old M receiving ceftriaxone/vancomycin for empiric coverage. Patient with hx of cirrhosis, CHF, type II diabetes. WBC initially elevated 16 --> 13. Fever documented this afternoon. UA (indwelling alberto) growing S. aureus sensitivities pending. Blood cultures to be obtained, starting vancomycin at this time. Plan Vancomycin * Vanco level drawn this morning was 22.9mcg/mL, this extrapolates to an AUC on the lower end of the target range. * Maintenance dose changed to 1250mg iv q 18 hours in order to target an AUC/EULOGIO of 500-600mg/L.hr. (higher end of range desired due to MRSA bacteremia with unclear source) * Another level will be obtained in the next 48-72 hours or as clinically necessary. Pharmacy will continue to follow and will adjust dose/frequency as necessary. Thank you. Pharmacy has transitioned to AUC monitoring for vancomycin. AUC/EULOGIO is the preferred PK/PD target and is associated with decreased risk of nephrotoxicity compared to traditional trough targets.
--- NOTE | 2024-12-09 10:27 | Orthopedic Progress Note ---
Date of Service December 09, 2024 Assessment & Plan (1) Acute pain of right shoulder: Plan: Right shoulder pain, DJD, probable rotator cuff acute on chronic tear Continue activity and range of motion as tolerated. Sling for comfort. Ice to right shoulder as needed for pain or swelling. Follow-up in the office as an outpatient in 2 to 4 weeks or as needed. Continue range of motion with PT and OT. He understands and agrees with the plan. Will sign off for now. Please call [phone] with any questions or concerns. Admission and Anticipated Discharge Date Admission Date: December 05, 2024 Subjective Patient is sitting up in chair. States that the shoulder still hurts with overhead type range of motion and activities. He has no pain at rest. The sling is off. Physical Exam Musculoskeletal: Exam of right shoulder: No discomfort with passive range of motion of the right shoulder. No effusion. No erythema. No visible deformity. Active range of motion is to about 110 degrees of forward elevation and abduction. Discomfort with range of motion with forward elevation and abduction. Nontender with palpation of the right shoulder. Results & Data Vital Signs (Past 12 Hours) Vital Signs Temp Pulse Pulse Resp BP Pulse Ox O2 Del Method 12/09/24 07:40 36.6 C 63 62 15 119/71 92 Room Air
--- NOTE | 2024-12-09 11:58 | Communication Note ---
Date of Service: December 09, 2024 Patient with MRSA in the blood. There is concerned about it a cardiac source. Patient has a history of cirrhosis grade 1 varices 1 to 2 years ago. Prior to transesophageal echo and EGD is requested to evaluate varices and risk of bleeding. Proceed today. Risk benefits discussed informed consent obtained
--- NOTE | 2024-12-09 12:09 | Anesthesiology Consultation ---
Date of Service December 09, 2024 Assessment & Plan Chart Review Chart Review: Acceptable Risk for Surgery and Patient NOT seen in Pre Admission Testing Consults Requested none ASA ASA4 Proposed Anesthesia Anesthesia Type: MAC Risk / Benefits Reviewed With: PT / POA / Parent / Guardian, Accepts Plan and Informed Consent Obtained History Surgery Operation Date: 12/09/24 16:30 Proposed Procedures p Esophagogastroduodenoscopy Dr. Bay Hermosillo MD Height/Weight Height: 6 ft Weight: 97.3 kg Allergies Allergy/AdvReac Type Severity Reaction Status Date / Time Iodinated Contrast Media AdvReac Intermediate Vomiting Verified 03/24/24 15:16 Medications Home Medications Medication Instructions Recorded Confirmed Last Taken alfuzosin 10 mg tablet,extended 10 mg PO DAILY #90 tabs 09/21/24 12/05/24 Unknown release 24 hr allopurinol 100 mg tablet 100 mg PO QAM #30 tabs 09/21/24 12/05/24 Unknown ascorbic acid (vitamin C) 500 mg 250 mg (1/2 x 500 mg) PO DAILY #30 09/21/24 12/05/24 Unknown tablet,extended release (Vitamin C tabs ER) atorvastatin 80 mg tablet 80 mg PO HS #30 tabs 09/21/24 12/05/24 Unknown empagliflozin 25 mg tablet 25 mg PO QAM #30 tabs 09/21/24 12/05/24 Unknown ferrous sulfate 325 mg (65 mg 325 mg PO BID #60 tabs 09/21/24 12/05/24 Unknown iron) tablet pantoprazole 40 mg tablet,delayed 40 mg PO DAILY #30 tabs 09/21/24 12/05/24 Unknown release cholecalciferol (vitamin D3) 25 50 mcg PO DAILY 12/05/24 12/05/24 Unknown mcg (1,000 unit) tablet escitalopram oxalate 5 mg tablet 10 mg PO DAILY 12/05/24 12/05/24 Unknown insulin glargine 100 unit/mL (3 See Rx Instructions .Route .COMPLEX 12/05/24 12/05/24 Unknown mL) subcutaneous pen (Lantus Solostar U-100 Insulin) Active Medications Generic Name Dose Route Start Last Admin Trade Name Freq PRN Reason Stop Dose Admin Allopurinol 100 mg 12/06/24 09:00 12/09/24 09:50 Allopurinol 100 Mg Tab PO 01/05/25 08:59 Not Given QAM [facility] Ascorbic Acid 250 mg 12/06/24 09:00 12/09/24 09:51 Ascorbic Acid 500 Mg Tab PO 01/05/25 08:59 Not Given DAILY [facility] Atorvastatin Calcium 80 mg 12/05/24 21:00 12/08/24 21:14 Atorvastatin 40 Mg Tab PO 01/04/25 20:59 80 mg HS DEVIN Administration Escitalopram Oxalate 10 mg 12/06/24 09:00 12/09/24 09:51 Escitalopram Oxalate 10 Mg Tab PO 01/05/25 08:59 Not Given DAILY [facility] Ferrous Sulfate 325 mg 12/05/24 21:00 12/09/24 09:51 Ferrous Sulfate 325 Mg Tab PO 01/04/25 20:59 Not Given BID [facility] Furosemide 20 mg 12/08/24 09:00 12/09/24 09:51 Furosemide 20 Mg Tab PO 01/07/25 08:59 Not Given QAM [facility] Heparin Sodium (Porcine) 5,000 units 12/06/24 21:00 12/09/24 10:01 Heparin Sod 5,000 Unit/0.5 Ml Vial SQ 01/05/25 20:59 5,000 units Q12 [facility] Administration Insulin Aspart 0 units 12/05/24 21:00 12/09/24 09:53 Insulin Aspart Per Unit Charge SC 01/04/25 20:59 Not Given ACHS [facility] Lidocaine 1 patch 12/05/24 18:00 12/08/24 17:56 Lidocaine 5% 1 Patch TD 01/04/25 17:59 1 patch Q24H [facility] Administration Magnesium Chloride 64 mg 12/07/24 21:00 12/09/24 09:51 Magnesium Chloride W/Calcium 64mg Delayed Rel Tab PO 01/06/25 20:59 Not Given BID [facility] Miscellaneous 1 each 12/06/24 06:00 12/09/24 05:52 Remove Lidoderm Patch N/A 01/05/25 05:59 1 each DAILY@0600 [facility] Administration Oxycodone HCl 5 mg 12/05/24 17:03 12/08/24 11:10 Oxycodone Hcl Ir 5 Mg Tab (Immediate Release) PO 12/19/24 17:02 5 mg Q8H PRN Administration Severe Pain (Scale 7, 8, 9,10) Pantoprazole Sodium 40 mg 12/06/24 09:00 12/09/24 09:51 Pantoprazole 40 Mg Tab PO 01/05/25 08:59 Not Given DAILY DEVIN Spironolactone 50 mg 12/08/24 09:00 12/09/24 09:51 Spironolactone 25 Mg Tab PO 01/07/25 08:59 Not Given QAM DEVIN Tamsulosin HCl 0.4 mg 12/06/24 09:00 12/09/24 09:52 Tamsulosin Hcl 0.4 Mg Cap PO 01/05/25 08:59 Not Given DAILY DEVIN Trolamine Salicylate 1 appln 12/05/24 17:30 12/09/24 05:52 Trolamine Salicylate 10% Crm 255 Appln/85 Gm Tube EXT 01/04/25 17:29 1 appln Q8 DEVIN Administration Vitamin D 50 mcg 12/06/24 09:00 12/09/24 09:51 Cholecalciferol 25 Mcg (1000 Units) Tab PO 01/05/25 08:59 Not Given DAILY DEVIN NPO Date Last Intake of Fluids: 12/08/24 Date Last Intake of Solids: 12/08/24 Past Medical History Medical History Panic disorder Cirrhosis of liver 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 mellitus Diabetic polyneuropathy Depression due to physical illness Depression with suicidal ideation BPH loc w urin obs/LUTS CHF (congestive heart failure) Paroxysmal atrial fibrillation Colon cancer SOB (shortness of breath) on exertion 1 FLIGHT-"OUT OF SHAPE" Chronic obstructive pulmonary disease History of pulmonary embolus (PE) REMOTE HX / LEG IN A A CAST - NO PROBLEMS SINCE History of kidney stones CKD (chronic kidney disease) stage 3, GFR 30-59 ml/min BMI 34.0-34.9,adult Sleep apnea CPAP/DOESN'T USE Hypertension Dyslipidemia Diabetes mellitus Exercise / Class Metabolic Activity II 4-5 Yardwork/Stairs/Walk up hill Past Family History Family History Grandmother Diabetes Mother Breast cancer Sister Breast cancer Past Surgical History Surgical History Status post cardiac pacemaker procedure S/P colon resection (10/26/21) Laparoscopic Assisted Right Colon Resection, Umbilical Hernia Repair- Singh Ambrose MD, FACS 10/26/2021 History of esophagogastroduodenoscopy (EGD) (02/19/23) Dr. Baker History of colonoscopy 2020 History of total right knee replacement Hx of repair of rotator cuff R&L Hx of foot surgery LEFT HEEL Status post laser lithotripsy of ureteral calculus 12/18/19 History of cholecystectomy Past Anesthesia History No Hx of Anesthesia Complications and No Family Hx of Anesthesia Complications History of PONV No Hx of PONV and No Hx of Motion Sickness Social History Smoking Status: Former smoker Do You Dip or Chew Tobacco: No Hx Alcohol Use: No Hx Substance Use: No substance use type: does not use Physical Exam Vital Signs Last Vital Signs Temp 36.7 C 12/09/24 11:48 Pulse 63 12/09/24 11:48 Resp 16 12/09/24 11:48 BP 130/73 12/09/24 11:48 Pulse Ox 94 12/09/24 11:48 O2 Del Method Room Air 12/09/24 11:48 O2 Flow Rate 2 12/07/24 08:19 ENMT Mouth: no dentition abnormality Thyromental Distance: > or= 3.5 Finger Breadths Mallampati Class: II Neck normal visual inspection Respiratory normal respiratory effort Auscultation: lungs clear to auscultation bilaterally Cardiovascular Rate/Rhythm: regular rate and regular rhythm Extremities: + edema Chest (Breasts) Chest: + pacemaker Skin + rash (jaundice) Psychiatric Orientation: alert Testing Laboratory Results 12/09/24 05:20 12/09/24 05:20 PT 13.6 Seconds (9.0-12.0) H 12/06/24 06:15 INR 1.3 (0.9-1.1) H 12/06/24 06:15 APTT 32 Seconds (21-31) H 12/06/24 21:00 Hemoglobin A1c 5.9 % (4.5-5.6) H 12/06/24 06:15 Urine Color Yellow 12/05/24 17:40 Urine Appearance Cloudy (Clear) A 12/05/24 17:40 Urine pH 5.0 (4.5-7.5) 12/05/24 17:40 Ur Specific [place] 1.026 (1.000-1.030) 12/05/24 17:40 Urine Protein Trace (Negative) H 12/05/24 17:40 Urine Glucose (UA) 3+ (Negative) H 12/05/24 17:40 Urine Ketones Negative (Negative) 12/05/24 17:40 Urine Nitrite Positive (Negative) A 12/05/24 17:40 Ur Leukocyte Esterase 1+ (Negative) H 12/05/24 17:40 Urine WBC (Auto) 21-50 /hpf (0-5) H 12/05/24 17:40 Urine RBC (Auto) 6-10 /hpf (0-2) H 12/05/24 17:40 U Hyaline Cast (Auto) 3-5 /lpf (0-2) H 12/05/24 17:40 U Epithel Cells (Auto) 0-2 /hpf (0-2) 12/05/24 17:40 Urine Bacteria (Auto) 2+ (None Seen) H 12/05/24 17:40 12/07/24 Unknown Gram Stain - Final Peritoneal Fluid Aerobic and Anaerobic Culture - Preliminary No growth to date. 12/06/24 17:40 Aerobic Blood Culture - Final Blood Staph aureus MRSA Anaerobic Blood Culture - Preliminary Staph aureus MRSA 12/06/24 17:15 Aerobic Blood Culture - Preliminary Blood Staph aureus MRSA Anaerobic Blood Culture - Preliminary Gram positive cocci clusters 12/08/24 05:40 Aerobic Blood Culture - Preliminary Blood No growth in Aerobic bottle after 24 hours. Anaerobic Blood Culture - Preliminary No growth in Anaerobic bottle after 24 hours. 12/08/24 05:28 Aerobic Blood Culture - Preliminary Blood No growth in Aerobic bottle after 24 hours. Anaerobic Blood Culture - Preliminary No growth in Anaerobic bottle after 24 hours. 12/05/24 17:40 Urine Culture - Final Urine,Indwelling Cath Staph aureus MRSA 12/09/24 07:35 POC Glucose 172 H
--- NOTE | 2024-12-09 12:23 | GI REPORT ---
[facility] Patient: RAMOS CLIFFORD : 1950 Sex at : Male Age: 74 Years Procedure: Upper GI endoscopy Date: 12/09/2024 Attending Physician: Mukesh Hermosillo MD Referring MD: Referred Self; Jamin Whitaker Md Indications: - History of varices portal hypertension for reevaluation of the variceal size. Patient also due for transesophageal echo variceal size and risk of bleeding required pre-. Medications: - Monitored Anesthesia Care Complications: - No immediate complications. Estimated Blood Loss: - Estimated blood loss: None. Procedure: - The egd scope was introduced through the mouth and advanced to the second part of the duodenum. - The upper GI endoscopy was accomplished without difficulty. - The patient tolerated the procedure well. Findings: - Grade I varices were found in the lower third of the esophagus. - Moderate portal hypertensive gastropathy was found in the entire examined stomach. - The examined duodenum was normal. Impression: - Grade I esophageal varices. - Portal hypertensive gastropathy. - Normal examined duodenum. - No specimens collected. Recommendation: - Trace to grade 1 varices. Portal hypertensive gastropathy without any spontaneous bleeding. No gastric varices. Repeat exam in 2 years. Patient can proceed with transesophageal echo. Procedure Code(s): - 38709, Esophagogastroduodenoscopy, flexible, transoral; diagnostic, including collection of specimen(s) by brushing or washing, when performed (separate procedure) Diagnosis Code(s): - I85.00, Esophageal varices without bleeding - K76.6, Portal hypertension - K31.89, Other diseases of stomach and duodenum CPT(R) - 2023 copyright [employer]. All Rights Reserved. The CPT codes, CCI edits and ICD codes generated are intended as suggestions and were generated based on input data. These codes are preliminary and upon ornamental painter review may be revised to meet current compliance and payer requirements. The provider is responsible for the final determination of appropriate codes, and modifiers. Mukesh Hermosillo MD This document has been electronically signed. Note Initiated:12/09/2024 Note Completed:12/09/2024 12:22 PM [id number]
--- NOTE | 2024-12-09 12:24 | Communication Note ---
Date of Service: December 09, 2024 EGD Trace to grade 1 varices. Portal hypertensive gastropathy without any spontaneous bleeding. No gastric varices. Repeat exam in 2 years. Patient can proceed with transesophageal echo.
[2024-12-09] MEDS: PROPOFOL IV EMULSION 10 MG/ML 20 ML VIAL IV ONE (12:54)
[2024-12-09] MEDS: LIDOCAINE 2% 2 ML VIAL/AMP(20MG/ML) INFIL ONE (12:54)
--- NOTE | 2024-12-09 13:56 | Anesthesiology Progress Note ---
Date of Service December 09, 2024 Anesthesia Post Procedure Vital Signs Vital Signs: Temp Pulse Pulse Resp BP Pulse Ox O2 Del Method 12/09/24 13:09 36.5 C 67 65 16 121/65 95 Room Air 12/09/24 12:50 66 16 116/58 L 95 Room Air 12/09/24 12:35 67 16 107/57 L 95 Room Air 12/09/24 12:20 64 14 93/53 L 99 Oxymask 12/09/24 11:48 36.7 C 63 16 130/73 94 Room Air 12/09/24 07:40 36.6 C 63 62 15 119/71 92 Room Air 12/08/24 21:13 Room Air 12/08/24 20:49 36.8 C 71 18 118/68 92 Room Air 12/08/24 15:29 37.0 C 75 18 117/70 93 Room Air O2 Flow Rate 12/09/24 13:09 12/09/24 12:50 12/09/24 12:35 12/09/24 12:20 10 12/09/24 11:48 12/09/24 07:40 12/08/24 21:13 12/08/24 20:49 12/08/24 15:29 Pain Intensity Right Shoulder: Pain Intensity: 0 Transfer of Care Handoff Completed per policy Notes Mental Status: alert / awake / arousable Patient Amnestic to Procedure: Yes Nausea / Vomiting: adequately controlled Pain: adequately controlled Airway Patency, RR, SpO2: stable & adequate BP & HR: stable & adequate Hydration State: stable & adequate Anesthetic Complications: no major complications apparent
--- NOTE | 2024-12-09 14:39 | Pharmacy Report ---
Pharmacy Glycemic Short Note 2 - Date of Service December 09, 2024 - Glycemic Short BSG Results (Last 24 hours): 12/08/24 12/08/24 12/09/24 16:43 19:52 05:20 Glucose 165 H POC Glucose 168 H 142 H 12/09/24 07:35 Glucose POC Glucose 172 H OUTPATIENT ANTIDIABETIC REGIMEN: * Lantus 48 units SC qAM, 40 units SC qPM * Empagliflozin 25 mg PO daily HbA1c: 5.9% (12/06/24) ASSESSMENT: 12/09: * BSGs were mostly below goal range the last few days, so basal and bolus insulin were significantly reduced yesterday. He only received 3 units of insulin yesterday (all were bolus) and BSGs were [phone]/dL. * Fasting BSG this morning was 172mg/dL. He reportedly refused insulin at that time and he was in endo when lunch BSG was due. Since his BSGs improved yesterday, will not make any changes for now. Will likely need to adjust as patient increases oral intake. 12/06: * HS is a 74 year old male who presented to ED w/ acute right shoulder pain s/p fall ~48 hours ago * Past inpatient glycemic data suggests aggressive insulin regimen may be necessary, however will utilize some caution given HbA1c and AM blood sugar of 107 mg/dL * T2DM diet ordered PLAN FOR INPATIENT GLYCEMIC CONTROL: * Hold outpatient oral diabetes medications * Basal insulin * Lantus 0-5-10 units SQ BID depending on BSG * Bolus insulin * NovoLog per scale ACHS or Q6hrs while NPO * Goal Range: Low 120 mg/dL - High 160 mg/dL * Correction Factor: 35 mg/dL/unit * Nutritional / Prandial insulin per carb ratio of 1 unit per 20 grams CHO consumed
[2024-12-09] MEDS: VANCOMYCIN HCL 1,250 MG in SODIUM CHLORIDE 0.9% 250 ML IV SCH (16:23)
--- NOTE | 2024-12-09 17:04 | Cardiology Progress Note ---
Date of Service December 09, 2024 Assessment & Plan (1) MRSA bacteremia: (2) Abdominal ascites: (3) Cirrhosis of liver: (4) Iron deficiency anemia: Plan: Patient with MRSA bacteremia in the setting of permanent pacemaker which had been placed in 2022. Pacemaker pocket without erythema or swelling. Transthoracic echocardiogram without evidence of valvular or lead vegetation. EGD today revealed trace to grade 1 esophageal varices, portal hypertensive gastropathy noted. No active bleeding. Will proceed with transesophageal echocardiogram tomorrow. Admission and Anticipated Discharge Date Admission Date: December 05, 2024 Subjective Patient seen in follow-up. No acute complaints. Physical Exam Physical Exam: General: no acute distress and stated age Eyes: conjunctiva are pink and non-injected, sclera clear Neck: normal jugular venous pulse, no hepatojugular reflux Chest: normal shape and normal respiratory effort - ongoing ascites noted sternoclavicular pacemaker pocket clean dry and intact Lungs: clear to auscultation and percussion Cardiac Exam: - regular heart sounds, no murmurs, rubs, or gallops, no jugular venous distention Abdomen: Distended, nontender, Extremities: 1-2+ bilateral lower extremity edema Neuro:awake, conversant, follows commands, no focal motor deficits Psych: appropriate affect and insight. Results & Data Vital Signs (Past 12 Hours) Vital Signs Temp Pulse Pulse Resp BP Pulse Ox O2 Del Method 12/09/24 13:09 36.5 C 67 65 16 121/65 95 Room Air 12/09/24 12:50 66 16 116/58 L 95 Room Air 12/09/24 12:35 67 16 107/57 L 95 Room Air 12/09/24 12:20 64 14 93/53 L 99 Oxymask 12/09/24 11:48 36.7 C 63 16 130/73 94 Room Air 12/09/24 07:40 36.6 C 63 62 15 119/71 92 Room Air O2 Flow Rate 12/09/24 13:09 12/09/24 12:50 12/09/24 12:35 12/09/24 12:20 10 12/09/24 11:48 12/09/24 07:40 (2) Abdominal ascites Ascites type: other type Qualified Code(s): R18.8 - Other ascites (3) Cirrhosis of liver Hepatic cirrhosis type: other cirrhosis Qualified Code(s): K74.69 - Other cirrhosis of liver (4) Iron deficiency anemia Iron deficiency anemia type: unspecified iron deficiency Qualified Code(s): D50.9 - Iron deficiency anemia, unspecified
[2024-12-09] MEDS: LANTUS PER UNIT CHARGE SQ ONE (17:59)
[2024-12-09] MEDS ORDERED: LANTUS PER UNIT CHARGE SQ SCH (21:00)
[2024-12-10] MEDS: INSULIN ASPART PER UNIT CHARGE SC SCH ×2 (06:11→18:23)
--- NOTE | 2024-12-10 07:25 | History & Physical Bridge Note ---
Date of Service December 10, 2024 History & Physical Bridge Note I have examined the patient, reviewed the History & Physical and in the interval since the performance of the History & Physical I have noted the following changes of clinical significance: no changes noted. Informed consent for AMELIA obtained. Patient elects to proceed.
--- NOTE | 2024-12-10 08:38 | Post Operative Brief Note ---
Cardiology Brief Post Op Date of Surgery December 10, 2024 Pre & Post Diagnosis Operation Date: 12/10/24 07:15 Procedure Preprocedure diagnosis: Bacteremia, evaluate for endocarditis Post procedure diagnosis: Small linear mobile echodensity noted on the aortic aspect of the aortic valve consistent with possible vegetation. Transesophageal echocardiogram procedure. The patient's vital signs were monitored via the standard fashion. The patient was sedated with the assistance of the anesthesia service. The patient was found to have a small linear mobile echodensity on the aortic aspect of the aortic valve. The tricuspid valve, mitral valve, pulmonic valve, or without vegetation. The right atrial and right ventricular pacemaker leads were well-visualized without evidence of vegetation. Prior studies were reviewed including a high-quality transthoracic echocardiogram performed as an outpatient at [facility] dated 03/23/2024 and the aortic valve abnormality was not visualized on that study. Upon reevaluation of the transthoracic study performed at [facility] on 12/09/2024, the aortic valve abnormality was visualized on that study. 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 Transesophageal echocardiogram images were obtained from the upper and mid esophagus. Images were not obtained from the distal esophagus and transgastric images were not obtained given the patient's history of esophageal varices and portal gastropathy. [employer] Sales Beauty Advisor DO Assistant Heather Kramer RCS Estimated Blood Loss 0 Findings Consistent with Post-Op Diagnosis Specimens Specimen Description: no specimens. Complications none
--- NOTE | 2024-12-10 09:21 | Orthopedic Progress Note ---
Date of Service December 10, 2024 Assessment & Plan (1) Acute pain of right shoulder: Plan: The patient was educated regarding today's findings. Conservative care measures were discussed. He was reassured that his shoulder is not red, hot, swollen, or significantly painful with passive motion. I do not suspect intra-articular septic infection. He likely has an acute oncologic cuff impingement and possible tear. The patient may follow-up on an outpatient basis when he is released. Use Tylenol and Motrin every 6 hours as needed for discomfort. Admission and Anticipated Discharge Date Admission Date: December 05, 2024 Subjective This 74-year-old male is seen today in his room. He states that his right shoulder still hurts with motion. He has very little discomfort when at rest. No new trauma. He denies any numbness or tingling. No additional complaints. He is known to have an MRSA infection. He has thought to have a likely rotator cuff tear with acute exacerbation of the cuff and DJD in his shoulder. Physical Exam Physical Exam: General: Well-developed, well-nourished, elderly male, in no acute distress. Laying in bed. Alert and oriented. Conversive. Skin: Warm and dry with good turgor. No rashes. No ecchymosis. No edema at the shoulder. Musculoskeletal: Right shoulder evaluation reveals no obvious asymmetry or deformity. He has no discomfort with palpation over the proximal biceps tendon or anterior glenohumeral joint. There is significant discomfort with palpation in the subacromial space as well as over the AC joint. No pain with palpation posteriorly. Passively he can abduct to 45 degrees with mild discomfort as well as forward flex to around 45 degrees without significant pain. He has good internal and external rotation of the shoulder with passive motion. Actively it causes pain in his subacromial space. He has full elbow motion, full wrist motion, and full digit motion, all without discomfort. He is unable to do traditional impingement testing and [place] testing secondary to discomfort. Neurologic: Gross sensation is intact across the right arm by soft touch. Results & Data Vital Signs (Past 12 Hours) Vital Signs Temp Pulse Pulse Pulse Resp BP Pulse Ox 12/10/24 08:53 36.7 C 72 16 113/61 89 L 12/10/24 08:45 74 18 113/58 L 95 12/10/24 08:30 70 18 109/52 L 98 12/10/24 08:10 72 18 110/51 L 98 12/10/24 06:57 37.0 C 76 18 121/60 90 O2 Del Method 12/10/24 08:53 Room Air 12/10/24 08:45 Room Air 12/10/24 08:30 Room Air 12/10/24 08:10 Room Air 12/10/24 06:57 Room Air
--- NOTE | 2024-12-10 09:45 | Anesthesiology Progress Note ---
Date of Service December 10, 2024 Anesthesia Post Procedure Vital Signs Vital Signs: Temp Pulse Pulse Pulse Resp BP Pulse Ox 12/10/24 09:19 36.6 C 68 18 119/63 89 L 12/10/24 08:53 36.7 C 72 16 113/61 89 L 12/10/24 08:45 74 18 113/58 L 95 12/10/24 08:30 70 18 109/52 L 98 12/10/24 08:10 72 18 110/51 L 98 12/10/24 06:57 37.0 C 76 18 121/60 90 12/09/24 20:21 36.8 C 80 16 131/72 92 12/09/24 13:09 36.5 C 67 65 16 121/65 95 12/09/24 12:50 66 16 116/58 L 95 12/09/24 12:35 67 16 107/57 L 95 12/09/24 12:20 64 14 93/53 L 99 12/09/24 11:48 36.7 C 63 16 130/73 94 O2 Del Method O2 Flow Rate 12/10/24 09:19 Room Air 12/10/24 08:53 Room Air 12/10/24 08:45 Room Air 12/10/24 08:30 Room Air 12/10/24 08:10 Room Air 12/10/24 06:57 Room Air 12/09/24 20:21 Room Air 12/09/24 13:09 Room Air 12/09/24 12:50 Room Air 12/09/24 12:35 Room Air 12/09/24 12:20 Oxymask 10 12/09/24 11:48 Room Air Pain Intensity Right Shoulder: Pain Intensity: 0 Transfer of Care Handoff Completed per policy Notes Mental Status: alert / awake / arousable and participated in evaluation Nausea / Vomiting: adequately controlled Pain: adequately controlled Airway Patency, RR, SpO2: stable & adequate BP & HR: stable & adequate Hydration State: stable & adequate Anesthetic Complications: no major complications apparent and Pt Satisfied with anesthetic care
[2024-12-10] MEDS: LIDOCAINE 2% 2 ML VIAL/AMP(20MG/ML) INFIL ONE ×2 (10:07)
[2024-12-10] MEDS: PROPOFOL IV EMULSION 10 MG/ML 20 ML VIAL IV ONE (10:07)
[2024-12-10] MEDS: BENZOCAINE/TETRACAIN/BUTAM 50 APPLN/5 GM CAN EXT ONE (10:07)
[2024-12-10 10:44] LABS: Hematocrit (blood only) 31.4 % (42.0-52.0); Hemoglobin 9.8 g/dl (14.0-18.0); Mean Corpuscular Hemoglobin 26.6 pg (25.0-34.0); Mean Corpuscular Hgb Conc 31.2 g/dL (32.0-36.0); Mean Corpuscular Volume 85.1 fL (80.0-100.0); Mean Platelet Volume 9.8 fL (9.4-12.4); Platelet Count 113 K/uL (130-400); RDW Coefficient of Variation 20.2 % (11.5-14.5); RDW Standard Deviation 62.5 fL (36.4-46.3); Red Blood Count 3.69 M/uL (4.70-6.10); White Blood Count 5.27 K/ul (4.8-10.8)
[2024-12-10 11:19] LABS: Albumin Globulin Ratio 0.9 (0.9-2); Albumin Level 2.6 gm/dl (3.4-5.0); BUN Creatinine Ratio 15.1 (10-20); Bilirubin,Total 1.5 mg/dl (0.2-1.0); Calcium 7.9 mg/dl (8.6-10.3); Creatinine Clr Calc Pharmacy 64.8 ml/min; Globulin 2.9 gm/dl (2.5-4.0); Potassium 3.9 mmol/L (3.5-5.1); Total Protein 5.5 gm/dl (6.0-8.3)
--- NOTE | 2024-12-10 16:15 | Cardiology Progress Note ---
Date of Service December 10, 2024 Assessment & Plan (1) Bacterial endocarditis: (2) MRSA bacteremia: (3) Abdominal ascites: (4) Cirrhosis of liver: (5) Iron deficiency anemia: Plan: Patient with MRSA bacteremia in the setting of permanent pacemaker which had b een placed in 2022. Pacemaker pocket without erythema or swelling. Patient with history of GARCES with resultant hepatic cirrhosis EGD Performed 12/09/2024revealed trace to grade 1 esophageal varices, portal hypertensive gastropathy noted. No active bleeding. Transesophageal echocardiogram performed today 12/10/2024 revealing a small mobile echodensity on the aortic aspect of the aortic valve consistent with vegetation. The right atrial and right ventricular pacemaker leads were well-visualized without evidence of vegetation. Prior studies were reviewed including a high-quality transthoracic echocardiogram performed as an outpatient at [facility] dated 03/23/2024 and the aortic valve abnormality was not visualized on that study. Upon reevaluation of the transthoracic study performed at [facility] on 12/09/2024, the aortic valve abnormality was visualized on that study. 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 Transesophageal echocardiogram images were obtained from the upper and mid esophagus. Images were not obtained from the distal esophagus and transgastric images were not obtained given the patient's history of esophageal varices and portal gastropathy. The patient has been followed by orthopedics, however orthopedic surgery has render an opinion that clinically it does not appear the patient has a septic shoulder and that his shoulder pain can be explained otherwise. The patient had initially been seen in cardiology consultation as an inpatient by the undersigned in 2021 when he was observed to have had paroxysmal atrial fibrillation after colon resection for adenocarcinoma. He was noted to have a bifascicular block at that time. In May, he was visiting his spouse who was hospitalized at [facility], and upon arrival he was dizzy unable to walk from his vehicle and was assisted with a wheelchair to the emergency department where an EKG revealed third-degree AV block with a ventricular escape rhythm in the 30s. The patient received atropine with spontaneous conversion to sinus rhythm with long first-degree AV block, TX interval 260 ms with bifascicular block. He subsequently underwent implantation of a dual-chamber Medtronic permanent pacemaker 05/21/2023. His pacemaker was interrogated today 12/10/2024. The patient does not appear to be pacemaker dependent. Predominant rhythm is sinus rhythm, he is atrial paced 47.5% the time with underlying long first-degree AV block. He is ventricular paced 11.1% the time. Brief episodes of atrial fibrillation are observed, with an overall atrial fibrillation burden of less than 0.1%. The longest duration of atrial fibrillation episode observed took place on 12/09/2024 and was 40 minutes in duration with controlled ventricular rate in the 70s. The patient's case was discussed with Dr Parnell of EP who had implanted the initial device. We are both in agreement that given the patient's degree of illness and the duration that the device has been in place, that he is certainly at risk for complication with device extraction. We however agree with the infectious disease recommendation that if able to be extracted, best option for clearing the patient's persistent bacteremia would be complete extraction of the device and leads. The patient is agreeable to transfer to tertiary center, [facility], for evaluation to include electrophysiology consultation to consider high risk device extraction. Per patient's request, I spoke to his son, Cedric, who was agreeable to transfer. Case reviewed with Dr. Whitaker. Admission and Anticipated Discharge Date Admission Date: December 05, 2024 Subjective Patient seen today prior to , during and again after AMELIA procedure. AMELIA notable for a small vegetation on the aortic valve. Patient tolerated procedure well. He denies chest pain or shortness of breath. Denies subjective fever. Lone complaint is right shoulder pain. Physical Exam Physical Exam: General: no acute distress and stated age Eyes: conjunctiva are pink and non-injected, sclera clear Neck: normal jugular venous pulse, no hepatojugular reflux Chest: normal shape and normal respiratory effort - ongoing ascites noted sternoclavicular pacemaker pocket clean dry and intact Lungs: clear to auscultation and percussion Cardiac Exam: - regular heart sounds, no murmurs, rubs, or gallops, no jugular venous distention Abdomen: Distended, nontender Extremities: 1+ bilateral lower extremity edema (much improved in last 48 hours) Neuro:awake, conversant, follows commands, no focal motor deficits Psych: appropriate affect and insight. Results & Data Vital Signs (Past 12 Hours) Vital Signs Temp Pulse Pulse Pulse Resp BP Pulse Ox 12/10/24 13:52 36.6 C 83 18 112/63 90 12/10/24 11:42 36.6 C 73 16 111/63 90 12/10/24 09:19 36.6 C 68 18 119/63 89 L 12/10/24 08:53 36.7 C 72 16 113/61 89 L 12/10/24 08:45 74 18 113/58 L 95 12/10/24 08:30 70 18 109/52 L 98 12/10/24 08:10 72 18 110/51 L 98 12/10/24 06:57 37.0 C 76 18 121/60 90 O2 Del Method 12/10/24 13:52 Room Air 12/10/24 11:42 Room Air 12/10/24 09:19 Room Air 12/10/24 08:53 Room Air 12/10/24 08:45 Room Air 12/10/24 08:30 Room Air 12/10/24 08:10 Room Air 12/10/24 06:57 Room Air Laboratory Results Cardiac Enzymes 12/10/24 Range/Units 10:18 AST 46 H (13-39) U/L CBC 12/10/24 Range/Units 10:18 WBC 5.27 (4.8-10.8) K/ul RBC 3.69 L (4.70-6.10) M/uL Hgb 9.8 L (14.0-18.0) g/dl Hct 31.4 L (42.0-52.0) % Plt Count 113 L (130-400) K/uL Comprehensive Metabolic Panel 12/10/24 Range/Units 10:18 Sodium 136 (136-145) mmol/L Potassium 3.9 (3.5-5.1) mmol/L Chloride 101 (98-107) mmol/L Carbon Dioxide 33 H (21-32) mmol/L BUN 18 (6-23) mg/dl Creatinine 1.19 (0.6-1.4) mg/dl Glucose 170 H (70-99(Fasting)) mg/dl Calcium 7.9 L (8.6-10.3) mg/dl AST 46 H (13-39) U/L ALT 24 (7-52) U/L Alkaline Phosphatase 219 H (34-104) U/L Total Protein 5.5 L (6.0-8.3) gm/dl Albumin 2.6 L (3.4-5.0) gm/dl Intake and Output 12/10/24 12/10/24 12/10/24 06:59 14:59 22:59 Intake Total 275 / 275 Output Total 500 / 1001 1225 / 1225 Balance -500 / -496 -950 / -950 Intake: IV 275 / 275 Vancomycin HCl 1,250 mg In 275 / 275 Sodium Chloride 0.9% 250 ml @ 200 mls/hr IV Q18H [facility] Rx#: [id number] Output: Urine Amount (Catheter) 500 / 1000 1225 / 1225 Dick/Indwelling 500 / 1000 1225 / 1225 Other: Weight 97.3 kg Patient Weight 12/11/24 06:59 Weight 97.3 kg (3) Abdominal ascites Ascites type: other type Qualified Code(s): R18.8 - Other ascites (4) Cirrhosis of liver Hepatic cirrhosis type: other cirrhosis Qualified Code(s): K74.69 - Other cirrhosis of liver (5) Iron deficiency anemia Iron deficiency anemia type: unspecified iron deficiency Qualified Code(s): D50.9 - Iron deficiency anemia, unspecified
[2024-12-10 19:54] VITALS: RESP 20; TEMP 98.2; O2SAT 92
--- NOTE | 2024-12-10 20:09 | Discharge Summary ---
Date of Service December 10, 2024 Admission HPI Per Admitting Provider This is a 74 y/o male with cirrhosis due to fatty liver disease, DM2 with polyneuropathy, SSS s/p PPM, HTN, CKD3, major depression with hx suicidal ideation, panic disorder, and other history as outlined below who presents to the ED today with worsening right shoulder pain since fall at home a few days ago. Pt reports that he was in his usual state of health until a few days ago when he lost his balance and fell at home landing on his right shoulder. No LOC, did not hit head. Since the fall, he notes generalized pain but worst in the right shoulder and describes feeling "terrible." He is not sleeping well with r esultant fatigue. He uses a cane for ambulation at baseline but son reports that pt usually has no significant difficulty getting around at home. He also notes back and neck pain since the fall. Appetite is decreased but no N/V. He notes progressive peripheral edema and abdominal distention over the last several days but reports that he is not taking his diuretics as he doesn't like how much they make him urinate, especially if he has somewhere to be outside of the house that day. His son tries to help him with his meds but admits that he isn't sure that he has an accurate list of what the patient is presently supposed to be taking. Pt is difficult to get a history from and often answers questions with vague, non-specific responses. Admission Exam Per Admitting Provider GENERAL APPEARANCE: AxOx3 flat affect, no distress but minimal participation in exam HEENT: NC, AT. MMM. EOMI, clear conjunctiva, oropharynx clear. NECK: Supple without lymphadenopathy. No stiffness or restricted ROM. HEART: Normal rate and regular rhythm, normal S1/S1, no m/r/g LUNGS: CTAB, moving air well. No crackles or wheezes are heard. ABDOMEN: protuberant and firm abdomen, NT, BS+ BACK: No CVAT, no obvious deformity. EXTREMITIES: BLE 1+ pitting edema with chronic edematous changes noted NEUROLOGICAL: Grossly nonfocal. Alert and oriented, moving all 4 extremities. CN not formally tested but appear grossly intact. Skin: Warm and dry without any rash. Principal Diagnosis MRSA bacteremia Bacterial endocarditis Hx of permanent pacemaker Discharge Exam General Appearance:Moderately built and nourished, no apparent distress, chronic ill appearing Head: normocephalic, Atraumatic Eyes: normal inspection, EOMI Neck: supple Respiratory/Chest: Normal breath sounds, CTA, No accessory muscle use Cardiovascular: S1, S2, +murmur Abdomen/GI:Soft, Non tender, distended, Bowel sounds present Extremities/Musculoskeletal:normal inspection, 2+ edema, chronic venous stasis changes, RUE in sling Neurologic/Psych: awake, alert, answers simple questions appropriately, speech fluent, moves extremities Skin: normal color, warm Discharge Data Allergies Allergy/AdvReac Type Severity Reaction Status Date / Time Iodinated Contrast Media AdvReac Intermediate Vomiting Verified 03/24/24 15:16 Consultations 12/05/24 16:37 ED Decision to Admit Stat 12/07/24 12:38 Consult Orthopedic Surgery Routine 12/08/24 09:45 Consult Infectious Diseases Routine 12/08/24 15:40 Consult Cardiology Routine 12/09/24 13:05 Consult Anesthesiology Routine Procedures Performed Operation Date: 12/10/24 07:15 Actual Procedures s Echo Color Flow - Luisito Do DO s Echo Doppler Complete - Luisito Do DO p Echo Transesophageal - Luisito Do DO Ordered Studies 12/05/24 14:06 CT Abdomen and Pelvis [CT abd pelvis wo con] Stat FINDINGS: Liver remains normal in size but is quite nodular in appearance suggesting chronic hepatic cirrhosis. No definite focal liver lesion seen on unenhanced only images. Spleen is mildly enlarged. Moderate amount of ascites is seen in the upper abdomen. Mild venous prominence suggesting possible early cavernous transformation of the portal vein. Pancreas unremarkable. Clips from cholecystectomy are noted. Adrenal glands are unremarkable. Right kidney shows 5 mm lower pole calculus but no hydronephrosis. Left kidney shows 3 mm lower pole calculus and 4.5 the lower pole cyst but no hydronephrosis. Moderate amount of ascites is also present in the pelvis. No evidence of bowel obstruction or free intraperitoneal air is seen at this time. There is some diffuse thickening of the wall of the urinary bladder with mild prostatic enlargement. Degenerative changes but no acute bony trauma identified at this time. IMPRESSION: 1. Chronic hepatic cirrhosis with evidence of portal venous hypertension including splenomegaly, early cavernous transformation of portal vein and a large amount of abdominal and pelvic ascites. 2. Bilateral renal calculi without hydronephrosis. Left renal cysts. CT chest diagnostic wo con Stat FINDINGS: Lung zones remain expanded without pneumothorax or significant pleural effusion. Mild areas of linear atelectasis/fibrosis are seen in both lower lobes similar to the previous study. Otherwise no acute infiltrate or edema is seen at this time. No significant abnormal hilar or mediastinal mass or adenopathy is seen. Left-sided pacemaker is present. Severe coronary artery calcifications are present. No acute bony trauma is identified at the examined levels. IMPRESSION: 1. Negative for acute traumatic abnormalities. 2. Mild areas of atelectasis/scarring/fibrosis in the lower lobes bilaterally. 3. Severe coronary artery calcification. 12/07/24 11:53 IR paracentesis abd w/img US Routine IMPRESSION: Ultrasound-guided paracentesis as above. Hospital Course (1) Acute pain of right shoulder: (2) Fall from standing: (3) Generalized weakness: (4) Iron deficiency anemia: (5) Abdominal ascites: (6) Noncompliance with medications: (7) Diabetic polyneuropathy: (8) CKD (chronic kidney disease) stage 3, GFR 30-59 ml/min: (9) Hypertension: (10) Diabetes mellitus: (11) Dyslipidemia: (12) Cirrhosis of liver: Plan Patient is a 74 yr male with cirrhosis due to fatty liver disease, DM2 with polyneuropathy, SSS s/p PPM, HTN, CKD3, major depression with hx suicidal ideation, panic disorder, and other history as outlined below who presents to the ED with worsening right shoulder pain since fall at home a few days ago. Pt reports being non-compliant with diuretic regimen and notes progressive ascites and edema. On work-up in the ED, he was noted to have leukocytosis with WBC count of 16.13, UA pending. Renal function at baseline. Chronic thrombocytopenia related to cirrhosis that is unchanged from baseline. Pt was referred for admission for further work-up and management related to generalized weakness and fall. Mechanical Fall Generalized weakness Right shoulder pain likely due to osteoarthritis/chronic rotator cuff tear --Shoulder X ray:No fracture or dislocation within the right shoulder. Moderate degenerative changes within the right shoulder. Fall precautions PT OT Continue right upper extremity sling for comfort Orthopedics consulted - Right shoulder pain, DJD, probable rotator cuff acute on chronic tear Continue activity and range of motion as tolerated. Sling for comfort. Ice to right shoulder as needed for pain or swelling. Follow-up in the office as an outpatient in 2 to 4 weeks or as needed. Continue range of motion with PT and OT. Please call [phone] with any questions or concerns. Pt was reassured that his shoulder is not red, hot, swollen, or significantly painful with passive motion. Do not suspect intra-articular septic infection. The patient may follow-up on an outpatient basis when he is released. Use Tylenol and Motrin every 6 hours as needed for discomfort. Bacterial endocarditis Urinary tract infection Staph bacteremia--POA in the setting of permanent pacemaker Urine culture grew MRSA Blood cultures: MRSA Rule out infective endocarditis H/O MRSA Empirically on ceftriaxone, vancomycin>> transitioned to vancomycin alone as per [employer] My [employer]! ID Follow-up final cultures Appreciate ID input Echo TTE obtained, -> pt underwent AMELIA today (12/10/2024)- c/w aortic valve vegetation. Extensive conversation w/ cardiology - pls see their note for further detail and patient's history -> recommend to remove the pacer -> pt will need to be transferred to tertiary center [facility] with CT surgery back up Dysphagia Aspiration precautions Speech therapy eval Continue minced and moist diet with thin liquids as recommended by speech therapy GARCES cirrhosis decompensated Progressive ascites and peripheral edema --CT ABD:Chronic hepatic cirrhosis with evidence of portal venous hypertension including splenomegaly, early cavernous transformation of portal vein and a la rge amount of abdominal and pelvic ascites. Bilateral renal calculi without hydronephrosis. Left renal cysts. -Saturating well on room air -S/P abdominal paracentesis Received IV Lasix Monitor volume status, daily weight, low-sodium diet Appreciate GI input Will need to follow-up with outpatient hepatology on discharge Continue Lasix, Aldactone Iron deficiency anemia currently receiving iron infusions through hematology Dr. Salvador Sewell Continue oral iron supplement Monitor CBC H/O colon adenocarcinoma S/P laparoscopic assisted right colon resection and umbilical hernia repair on 11/01/[address] Salvador Sewell as outpatient DM II - on Lantus 48 units in the AM, 40 units in the PM Continue insulin per protocol Glycemic pharmacist consulted Monitor blood glucose levels Depression H/O suicidal ideations Continue outpatient medications Total Time Total Time Spent Total Time Spent (In Minutes): 60 Discharge Plan Discharge Items Patient Disposition: Transfer Acute Care Hospital Reason For Visit: FALL,DECOMPENSATED CIRRHOSIS Discharge Diagnosis: MRSA bacteremia Bacterial endocarditis Hx of permanent pacemaker Activity: Per Instructions section Non-emergency contact: Primary Care Provider, Specialist and Jalousies Installer Call non-emergency contact if: you have any medication questions and your symptoms worsen Follow-up/Referrals: Tiffanie Lee PA-C [Physician Regional Wildlife Agent] - 01/04/25 10:30 am Donovan Ruvalcaba NP-C [Primary Care Provider] - Diet: Carb Consistent or DM2 and Low Sodium (2gm) Diet Texture: Mechanical soft (ground) Addtl Attending Provider Instructions: Pt to be transferred to [facility] for further cardiology/ EP evaluation and care. 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 -Sling to right arm as needed for comfort -May do activities as tolerated with right shoulder. -Ice to right shoulder as needed for pain or swelling. - May do activities as tolerated with the right shoulder. -Follow-up with [facility] orthopedics in 2 to 4 weeks or on an as needed basis. Call [phone] with any increased pain, questions or concerns or need to schedule or reschedule your appointment. Pending Studies at Discharge: Yes Studies:: blood cultures Stand-Alone Forms: My [facility] [email or web address] Skilled Items Patient informed of condition?: Yes DNR: No Discharge Level of Care: Other Communicable Disease: No Discharge Prognosis: Other Lines: Peripheral IV Medications and DC Order Prescriptions: Continued escitalopram oxalate 5 mg tablet 10 mg PO DAILY cholecalciferol (vitamin D3) 25 mcg (1,000 unit) tablet 50 mcg PO DAILY insulin glargine [Lantus Solostar U-100 Insulin] 100 unit/mL (3 mL) insulin pen See Rx Instructions .ROUTE .COMPLEX Rx Instructions: 48 units in AM, 40 units in PM atorvastatin 80 mg tablet 80 mg PO HS Qty: 30 0RF allopurinol 100 mg tablet 100 mg PO QAM Qty: 30 0RF pantoprazole 40 mg Tablet,Delayed Release (Dr/Ec) 40 mg PO DAILY Qty: 30 0RF ferrous sulfate 325 mg (65 mg iron) Tablet 325 mg PO BID Qty: 60 1RF ascorbic acid (vitamin C) [Vitamin C] 500 mg Tablet Extended Release 250 mg PO DAILY Qty: 30 0RF alfuzosin 10 mg tablet extended release 24 hr 10 mg PO DAILY Qty: 90 3RF Rx Instructions: administer after the same meal each day empagliflozin 25 mg Tablet 25 mg PO QAM Qty: 30 1RF Discharge Orders: Discharge Order (Routine); Ordered 12/10/24 Ordered By: Jamin Whitaker Admission Data Admit Date/Time: 12/05/24 17:06 Attending Provider: Jamin Whitaker Admit Provider: Monika Queen Primary Care Provider: Donovan Ruvalcaba Other Providers: Monika Queen; [facility]; [place]; [facility]; Jarvis Darden; Lilliam Bhandari; Bay Gonzales I.; Mauricio Quintero II; Magalie Michael; Elder Royal; Jovani Yoder; Gagan Manzano; Alex Muniz; Luisito Do; Julee Villela; Kiah Yee; Bettina Trevino; Veronica Omalley; Rocky Warner; Galindo Quiles; Galo Pérez; Constantin Aleman; Tiffanie Shen; Raheel Miltno; Navarro Prasad; Emil Guerin; Carole Hilton; Elder Salvador; Faye Salvador; Gray Flannery; Kayla Rodriguez; Matt Varner.; Rubi Yadav; Clare Davalos; Chris Albert; Hyacinth Peterson; Nathalie Cruz; Sandrita Weinstein; Domonique Barakat; Conrado Barakat V; Dean Simons; Kiah Isbell; Gage Corrales; Anabel Chun; Conrado Thomas; Hansel Hilton; Russ Murdock; Lyndsey Guy; Karen Weller; Conrado Das; Michael Benoit; Robyn Dumont; Scott Ruiz; May Gonzalez; Mary Kate Ann; Luisito Shipley; Philipp Terrell; Maegan Santiago; Galo Escamilla; Iveth Patiño; Jc Haley; Gold Esposito; Mac Sandoval; Rokcy Pantoja Jr; Poornima Gaytan; Shaylee Osorio; Jenna Rubalcava; Chris Herring; Remi Zuniga; Shaylee Gaffney; Alfredo Muller; Layo Banegas; Jason Maldonado; Denny Dickens; Spring Chan; Dulce Maria Marie; Lila Estes; Diana Ryan; Alejandra Maria; Michell Caldwell; Zach Blackmon Jr; Sara Morelos; Hyacinth Rolle; Juvenal Welch; [place] Other Interventions: Discharge Summary Assessment (RN) Last Done: 12/09/24 12:50
[2024-12-10 20:10] VITALS: BP 121/56; PULSE 74
[2024-12-10] MEDS: LANTUS PER UNIT CHARGE SQ SCH (20:29)
--- NOTE | 2024-12-11 10:06 | Coding Query ---
SEPSIS To promote full compliance with coding requirements relating to patient care, physician participation is requested in all cases of fast food services manager uncertainty. Please assist us with the question(s) below: In responding to this query, please exercise your independent professional judgement. The fact that a question is asked does not imply that any particular answer is desired or expected. We appreciate your clarification on this issue. Throughout the medical record, you have clearly documented a localized infection and your patient has clinical evidence of a generalized sepsis or severe sepsis. The term urosepsis is a nonspecific entity and is coded as an UTI. If the patient has sepsis, severe sepsis, from an urinary source or some other source, please clarify in your response below. The medical record reflects the following clinical findings: Pt admitted with bacterial endocarditis. Infection control consult mentioned Sepsis. Subsequent hospitalist notes document bacteremia. Pt transferred to another hospital for bacterial endocarditis. Please check below the diagnosis that was treated during this inpatient stay. Thank you. Harish Calzada, [facility] ____ (x )Bacteremia (Nonspecific laboratory finding of bacteria in the blood) Specify Organism MRSA (x ) Present on Admission ( ) Not present on admission ( ) Unable to clinically determine ( ) Septicemia (Systemic disease associated with the presence of pathogenic microorganisms in the blood): Specify Organism ( ) Present on Admission ( ) Not present on admission ( ) Unable to clinically determine ( x) Sepsis Specify Organism MRSA Specify Associated Condition/Diagnosis ( x) Present on Admission ( ) Not present on admission ( ) Unable to clinically determine ( ) Severe Sepsis (Sepsis associated with acute organ dysfunction) Specify Organism Specify Associated Condition/Diagnosis ( ) Present on Admission ( ) Not present on admission ( ) Unable to clinically determine ( ) Septic Shock (Severe sepsis with acute circulatory failure, unexplained by other causes) ( ) Present on Admission ( ) Not present on admission ( ) Unable to clinically determine ( ) Other, patient has: MTDD
--- NOTE | 2024-12-11 10:08 | Coding Query ---
CODING QUERY To promote full compliance with coding requirements relating to patient care, provider participation is requested in all cases of river rat uncertainty. Please assist us with the question(s) below: Coding Question(s): PT admiitted with sepsis/bacteremia , diagnosed with endocarditis. Discharge Summary states bacterial endocarditis in the setting of a cardiac device. Please document, if known or suspected the etiology of the sepsis/bacteremia. thanks for your help! Harish Calzada [facility] Physician's Response(s): etiology unclear Principal Diagnosis: "that condition established after study, to be chiefly responsible for occasioning the admission of the patient to the hospital for care." Co-Existing Principal Diagnosis: "when two or more diagnoses equally meet the criteria for principal diagnosis as determined by the circumstances of admission, diagnostic work up, and/or therapy provided, and the Alphabetic Index, Tabular List, or another coding guideline does not provide sequencing direction, any one of the diagnoses may be sequenced first." "When the physician has documented what appears to be a current diagnosis in the body of the record, but has not included the diagnosis in the final diagnostic statement, the physician should be asked whether the diagnosis should be added." (Source [facility] 2 QTR90. p3-4) SHANEKA
== END 2024-12-10 20:49 | disposition short-term general hospital (02) | DRG 871 ==
LOC: ED 11:15 → SUATTDRO 17:06 → 3N 17:06